=== PATIENT | male | born 1940 | race Caucasian/White ===

== ENCOUNTER 2017-08-06 20:17 | Observation (INO) | payer OTHER ==
[~2017-08-06] VITALS: Ht 165.1 cm; Wt 72.0 kg
[2017-08-06] MEDS ORDERED: ONDANSETRON INJ 2 MG/ML 2 ML VIAL IV STA (20:42)
[2017-08-06] MEDS ORDERED: SODIUM CHLORIDE 0.9% 1000ML 1,000 ML IV STA (20:42)
--- NOTE | 2017-08-06 20:50 | EMERGENCY ROOM VISIT NOTE ---
History Report prepared by Chris: Elissa Lkae Under the Supervision of: Dr. Cruzito Soria M.D. First contact with patient: 20:32 Stated Complaint: Dizzy, N/V History of Present Illness The patient is a 77 year old male who presents to the Emergency Room with complaints of constant dizziness 3.5 hours [employer]CH[employer]ICAL SYSTEM[employer]. He reports that he was feeling fine watching the [employer] while sitting on the sofa. He notes that he fell asleep and his woke him for dinnertime. He notes feeling dizzy as soon as he stood up and immediately fell to the ground. He reports that the dizziness worsens with movement of the body, head, and eyes. He notes general weakness and mild abdominal pain. He has a history of atrial fibrillation, HTN, HLD, depression, and a manic episode in 2000. He denies a history of diabetes. He denies any LOC, injuries, chest pain, shortness of breath, vision changes, fevers, bloody stools, headaches, leg pain or swelling. 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 Review of Systems See HPI for pertinent positives & negatives. A total of 10 systems reviewed and were otherwise negative. Past Medical & Surgical Medical Problems: (1) Dizziness and giddiness Old medical records were reviewed. Nurse's notes were reviewed and I agree with. Family History No pertinent family history reported. Social History Smoking Status: Never Smoker Smokeless Tobacco Use: No Alcohol Use: none Drug Use: none Occupation Status: employed Current/Historical Medications Scheduled Amlodipine Besylate (Amlodipine Besylate), 1 TAB PO DINNER Aspirin (Aspirin Ec), 81 MG PO QAM Carbamazepine (Carbatrol Er), 300 MG PO HS Latanoprost (Xalatan 0.005% Oph Darcie), 1 DROPS OPB HS Lisinopril (Zestril), 20 MG PO DINNER Loratadine (Claritin), 10 MG PO DAILY Metoprolol Tartrate (Lopressor) (Lopressor), 25 MG PO DINNER Rosuvastatin Calcium (Crestor), 40 MG PO DINNER Warfarin Sodium (Coumadin), 2 MG PO MWF Warfarin Sodium (Coumadin), 3.5 MG PO UD Allergies Coded Allergies: No Known Allergies (Unverified , 08/06/17) Physical Exam Vital Signs Date Time Temp Pulse Resp B/P (MAP) Pulse Ox O2 Delivery O2 Flow Rate FiO2 08/07/17 00:29 16 154/102 08/06/17 23:29 60 143/95 99 Room Air 08/06/17 23:09 Room Air 08/06/17 22:09 70 16 151/103 94 Room Air 08/06/17 20:56 84 20 154/102 99 Room Air 08/06/17 20:38 99 Room Air 08/06/17 20:38 36.6 88 20 173/87 99 Room Air 08/06/17 20:35 87 Physical Exam General: Non-ill appearing older male in no acute distress. Complaining of nausea and holding an emesis bag. HEENT: Normal cephalic atraumatic. Pupils are equal round and reactive to light. Extraocular movements are intact. Oropharynx is pink with moist mucous membranes. No swelling of the mouth lips or tongue. Neck: Supple with a midline trachea. No meningeal signs or stiffness, no JVD or bruits. No Stridor. Chest: Clear to auscultation bilaterally. No wheezes or rhonchi. No increased work of breathing. Heart: regular rate and irregularly irregular rhythm. Abdomen: Soft nand mild tenderness to epigastric region, nondistended without rebound guarding or rigidity. Extremities: No cyanosis clubbing or edema. No calf tenderness or assymetry Spine/Back. Non tender to palpation. No CVA tenderness Skin: Good turgor without rashes. Neurologic exam: Cranial nerves two through 12 are intact. Motor and sensation are intact and symmetrical throughout. FNF intact, no tremor. Medical Decision & Procedures ER Provider Diagnostic Interpretation: Radiology results as stated below per my review and radiologist interpretation: SINGLE VIEW CHEST CLINICAL HISTORY: Atypical chest pain. FINDINGS: An AP, portable, upright chest radiograph is obtained. No prior studies are available for comparison at the time of dictation. The examination is degraded by portable technique and patient rotation. The patient is status post midline sternotomy. The heart is enlarged and there is atherosclerotic calcification of the thoracic aorta. The pulmonary vasculature is noncongested. The lungs and pleural spaces are clear. No pneumothorax is seen. The skeletal structures are osteopenic. The bony thorax is grossly intact. IMPRESSION: Cardiomegaly with no acute cardiopulmonary abnormality. Electronically signed by: Martin Rosen M.D. 08/06/2017 9:00 PM Dictated Date/Time: 08/06/2017 8:[address] SCAN OF THE BRAIN WITHOUT IV CONTRAST CLINICAL HISTORY: Vomiting and dizziness. COMPARISON STUDY: No priors. TECHNIQUE: Unenhanced axial CT scan of the brain is performed from the vertex to the skull base. CT DOSE: 1060.45 mGy.cm FINDINGS: Brain parenchyma: There are age-related involutional changes noting mild subcortical and periventricular microangiopathic change. There is no hemorrhage, mass effect, or evidence of acute territorial ischemia by CT criteria. Martin-white matter is preserved. No extra-axial fluid collection is seen. Ventricles, sulci, cisterns: Prominent secondary to involutional change. Intracranial vasculature: There is atherosclerotic calcification of the cavernous carotid arteries. Calvarium: Unremarkable. Sinuses and mastoids: The visualized paranasal sinuses are clear. The mastoid air cells are well pneumatized. Orbits: The bony orbits are grossly intact. IMPRESSION: There is no hemorrhage, mass effect, or evidence of acute territorial ischemia by CT criteria. Electronically signed by: Martin Rosen M.D. 08/06/2017 9:17 PM Dictated Date/Time: 08/06/2017 9:[address] SCAN OF THE ABDOMEN AND PELVIS WITHOUT IV CONTRAST CLINICAL HISTORY: Vomiting. COMPARISON STUDY: No priors. TECHNIQUE: CT scan of the abdomen and pelvis is performed from the lung bases to the proximal femora. Images are reviewed in the axial, sagittal, and coronal planes. IV contrast was not administered for this examination as per the referring clinician. Note that the examination was performed in suboptimal fashion without oral and IV contrast. A dose lowering technique was utilized adhering to the principles of ALARA. CT DOSE: Reported separately under the concurrently performed CT scan of the brain. FINDINGS: Lung bases: The patient is status post midline sternotomy. The heart is enlarged and without pericardial effusion. The coronary arteries are densely calcified. The lung bases are clear. A small to moderate hiatal hernia is identified. Liver: The unenhanced liver is normal in size, contour, and attenuation. There is no intrahepatic biliary ductal dilatation. Gallbladder: There are numerous calcified gallstones. There is no CT evidence of acute cholecystitis. Spleen: Normal in size and attenuation. Pancreas: There is moderate atrophy of the pancreas. Scattered parenchymal calcifications are observed and there is an chronic pancreatitis. Adrenal glands: Unremarkable. Kidneys: The unenhanced kidneys demonstrate cortical atrophy and are without hydronephrosis. There is a 4 mm nonobstructing left or a calculus. No right renal calculi are identified. There is no evidence of contour deforming renal mass lesion. Abdominal vasculature: The abdominal aorta is normal in course and caliber noting advanced atherosclerotic calcification. 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 Bowel: There is mild colonic diverticulosis without CT evidence of acute diverticulitis. No bowel obstruction is seen. The appendix is not identified and reported surgically absent. Peritoneum: There is no intraperitoneal free air or abdominal ascites. There is a small fat-containing umbilical hernia. Lymphadenopathy: None. Pelvic viscera: The prostate gland is enlarged and heterogeneous, measuring 5.1 cm in transverse diameter. There is median lobe hypertrophy. The bladder is distended and contains a small bladder calculi. The wall is mildly thickened and trabeculated suggesting chronic outlet obstruction. There is a tiny fat-containing left inguinal hernia. Skeletal structures: The skeletal structures are osteopenic. There is moderate lumbosacral spondylosis. No lytic or blastic lesions are seen. IMPRESSION: 1. Suboptimal examination without oral and IV contrast. 2. There are no acute infectious or inflammatory findings in the abdomen or pelvis. 3. Nonobstructing left renal calculus. 4. Cholelithiasis without CT evidence of acute cholecystitis. 5. Prostatomegaly with evidence of chronic bladder outlet obstruction. 6. Layering bladder calculi are identified. 7. Cardiomegaly. 8. Hiatal hernia. 9. Mild colonic diverticulosis without CT evidence of acute diverticulitis. 10. Additional findings as above. Electronically signed by: Martin Rosen M.D. 08/06/2017 9:36 PM Dictated Date/Time: 08/06/2017 9:29 PM Laboratory Results 08/06/17 20:05 Red Blood Count 5.42, Mean Corpuscular Volume 91.0, Mean Corpuscular Hemoglobin 31.2, Mean Corpuscular Hemoglobin Concent 34.3, Mean Platelet Volume 10.2, Neutrophils (%) (Auto) 76.8, Lymphocytes (%) (Auto) 15.9, Monocytes (%) (Auto) 4.8, Eosinophils (%) (Auto) 1.7, Basophils (%) (Auto) 0.4, Neutrophils # (Auto) 8.60, Lymphocytes # (Auto) 1.78, Monocytes # (Auto) 0.54, Eosinophils # (Auto) 0.19, Basophils # (Auto) 0.04 08/06/17 20:05 Test 08/06/17 20:05 08/06/17 20:54 White Blood Count 11.20 K/uL (4.8-10.8) Red Blood Count 5.42 M/uL (4.7-6.1) Hemoglobin 16.9 g/dL (14.0-18.0) Hematocrit 49.3 % (42-52) Mean Corpuscular Volume 91.0 fL (80-100) Mean Corpuscular Hemoglobin 31.2 pg (25-34) Mean Corpuscular Hemoglobin Concent 34.3 g/dl (32-36) Platelet Count 241 K/uL (130-400) Mean Platelet Volume 10.2 fL (7.4-10.4) Neutrophils (%) (Auto) 76.8 % Lymphocytes (%) (Auto) 15.9 % Monocytes (%) (Auto) 4.8 % Eosinophils (%) (Auto) 1.7 % Basophils (%) (Auto) 0.4 % Neutrophils # (Auto) 8.60 K/uL (1.4-6.5) Lymphocytes # (Auto) 1.78 K/uL (1.2-3.4) Monocytes # (Auto) 0.54 K/uL (0.11-0.59) Eosinophils # (Auto) 0.19 K/uL (0-0.5) Basophils # (Auto) 0.04 K/uL (0-0.2) RDW Standard Deviation 46.0 fL (36.4-46.3) RDW Coefficient of Variation 13.8 % (11.5-14.5) Immature Granulocyte % (Auto) 0.4 % Immature Granulocyte # (Auto) 0.05 K/uL (0.00-0.02) Prothrombin Time 16.3 SECONDS (9.0-12.0) Prothromb Time International Ratio 1.6 (0.9-1.1) Activated Partial Thromboplast Time 29.4 SECONDS (21.0-31.0) Partial Thromboplastin Ratio 1.1 Anion Gap 9.0 mmol/L (3-11) Est Creatinine Clear Calc Drug Dose 51.6 ml/min Estimated GFR () 78.6 Estimated GFR (Non- 67.8 BUN/Creatinine Ratio 20.0 (10-20) Calcium Level 8.7 mg/dl (8.5-10.1) Total Bilirubin 0.4 mg/dl (0.2-1) Direct Bilirubin 0.1 mg/dl (0-0.2) Aspartate Amino Transf (AST/SGOT) 22 U/L (15-37) Alanine Aminotransferase (ALT/SGPT) 29 U/L (12-78) Alkaline Phosphatase 92 U/L (45-117) Total Creatine Kinase 62 U/L (39-308) Creatine Kinase MB 1.0 ng/ml (0.5-3.6) Creatine Kinase MB Ratio 1.6 (0-3.0) Total Protein 7.7 gm/dl (6.4-8.2) Albumin 4.1 gm/dl (3.4-5.0) Lipase 177 U/L (73-393) Bedside Troponin I < 0.030 ng/ml (0-0.045) Laboratory studies as stated above per my review. Medications Administered Medications (Trade) Dose Ordered Sig/Ruthy Route Start Time Stop Time Status Last Admin Dose Admin Sodium Chloride 1,000 ml @ 999 mls/hr Q1H1M STAT IV 08/06/17 20:42 08/06/17 21:42 DC 08/06/17 20:56 999 MLS/HR Ondansetron HCl (Zofran Inj) 4 mg NOW STAT IV 08/06/17 20:42 08/06/17 20:45 DC 08/06/17 20:56 4 MG Lorazepam (Ativan Inj) 0.5 mg NOW STAT IV 08/06/17 21:34 08/06/17 21:35 DC 08/06/17 22:06 0.5 MG ECG Indication: other (dizziness) Rate (beats per minute): 93 Rhythm: atrial fibrillation Findings: no acute ischemic change, other (No PVCs) Comparison ECG Date: no prior available ED Course 2032: Past medical records reviewed. The patient was evaluated in room C3, and a complete history and physical examination were performed. 2041: Ordered Zofran 4 mg IV, NSS 1,000 ml @ 999 mls/hr IV 2133: Ordered Lorazepam 0.5 mg IV 2133: I reassessed the patient at this time. He is feeling better and resting comfortably 2334: I spoke with michelle Aguirreist. We discussed the patients case. The patient will be evaluated by the [facility] for further management. Medical Decision Differentials include, but are not limited to; arrhythmia, ACS, vertigo, CVA, infection, and electrolyte or metabolic abnormality. This patient comes in as described above. He was placed in room C3. He is here for treatment and evaluation of dizziness. He was worried that he was having a heart attack. He felt very nauseated as. Well he had no chest pain. He appears uncomfortable with movement. He has a normal neurologic exam. His EKG shows chronic A. fib. He is on anticoagulation for this. Multiple blood tests was obtained he was given IV Zofran and IV hydration and he still some nausea and was given Ativan 0.5 mg IV. He was seemed more comfortable with this but still says he feels very nauseated and dizzy with movement. CAT scan of his head is unremarkable and he has no evidence of acute intracranial hemorrhage or process seen. He has no elevation of his cardiac enzymes. He has no acute electrolyte or metabolic abnormalities. He has nothing to suggest trauma or infection. He is not severely anemic. He still does not feel well. I do think that he needs to be admitted/observed for further treatment and evaluation this may be more vertigo. I think he needs further cardiac evaluation/rule out as well and possibly further neurologic evaluation. I have consulted the [facility] to see him in the ER. Medication Reconcilliation Current Medication List: was personally reviewed by me Blood Pressure Screening Patient's blood pressure: Elevated blood pressure Blood pressure disposition: Elevated BP felt to be situational Consults Time Called: 2329 Consulting Physician: Dr. Garcia, hospitalist Returned Call: [phone]: I spoke with wm Aguirre. We discussed the patients case. The patient will be evaluated by the [facility] for further management. Impression Primary Impression: Vertigo Additional Impression: Vomiting Scribe Attestation The scribe's documentation has been prepared under my direction and personally reviewed by me in its entirety. I confirm that the note above accurately reflects all work, treatment, procedures, and medical decision making performed by me. Departure Information Dispostion Being Evaluated By Hospitalist Problem Qualifiers
[2017-08-06 20:53] LABS: BASO % 0.4 %; BASO ABS # 0.04 K/uL (0-0.2); COMPLETE YES; EOS % 1.7 %; HEMATOCRIT 49.3 % (42-52); IG% 0.4 %; LYMPH % 15.9 %; LYMPH ABS # 1.78 K/uL (1.2-3.4); MEAN CORPUSCULAR HEMOGLOBIN 31.2 pg (25-34); MEAN CORPUSCULAR HGB CONC 34.3 g/dl (32-36); MEAN PLATELET VOLUME 10.2 fL (7.4-10.4); MONO % 4.8 %; NEUT % 76.8 %; PLATELET COUNT 241 K/uL (130-400); RED BLOOD COUNT 5.42 M/uL (4.7-6.1)
--- NOTE | 2017-08-06 21:01 | DIAGNOSTIC IMAGING REPORT ---
SINGLE VIEW CHEST CLINICAL HISTORY: Atypical chest pain. FINDINGS: An AP, portable, upright chest radiograph is obtained. No prior studies are available for comparison at the time of dictation. The examination is degraded by portable technique and patient rotation. The patient is status post midline sternotomy. The heart is enlarged and there is atherosclerotic calcification of the thoracic aorta. The pulmonary vasculature is noncongested. The lungs and pleural spaces are clear. No pneumothorax is seen. The skeletal structures are osteopenic. The bony thorax is grossly intact. IMPRESSION: Cardiomegaly with no acute cardiopulmonary abnormality. Electronically signed by: Martin Rosen M.D. 08/06/2017 9:00 PM Dictated Date/Time: 08/06/2017 8:59 PM
[2017-08-06 21:11] LABS: INR 1.6 (0.9-1.1); PARTIAL THROMBOPLASTIN RATIO 1.1; PROTHROMBIN TIME (PATIENT) 16.3 SECONDS (9.0-12.0)
[2017-08-06 21:16] LABS: CALCIUM 8.7 mg/dl (8.5-10.1); CREATININE 1.06 mg/dl (0.60-1.40); POTASSIUM 3.7 mmol/L (3.5-5.1)
--- NOTE | 2017-08-06 21:18 | DIAGNOSTIC IMAGING REPORT ---
CT SCAN OF THE BRAIN WITHOUT IV CONTRAST CLINICAL HISTORY: Vomiting and dizziness. COMPARISON STUDY: No priors. TECHNIQUE: Unenhanced axial CT scan of the brain is performed from the vertex to the skull base. CT DOSE: 1060.45 mGy.cm FINDINGS: Brain parenchyma: There are age-related involutional changes noting mild subcortical and periventricular microangiopathic change. There is no hemorrhage, mass effect, or evidence of acute territorial ischemia by CT criteria. Martin-white matter is preserved. No extra-axial fluid collection is seen. Ventricles, sulci, cisterns: Prominent secondary to involutional change. Intracranial vasculature: There is atherosclerotic calcification of the cavernous carotid arteries. Calvarium: Unremarkable. Sinuses and mastoids: The visualized paranasal sinuses are clear. The mastoid air cells are well pneumatized. Orbits: The bony orbits are grossly intact. IMPRESSION: There is no hemorrhage, mass effect, or evidence of acute territorial ischemia by CT criteria. Electronically signed by: Martin oRsen M.D. 08/06/2017 9:17 PM Dictated Date/Time: 08/06/2017 9:16 PM
[2017-08-06 21:21] LABS: CKMB/CK RATIO 1.6 (0-3.0)
[2017-08-06] MEDS ORDERED: LORAZEPAM 2 MG/ML 1 ML VIAL IV STA (21:34)
--- NOTE | 2017-08-06 21:37 | DIAGNOSTIC IMAGING REPORT ---
CT SCAN OF THE ABDOMEN AND PELVIS WITHOUT IV CONTRAST CLINICAL HISTORY: Vomiting. COMPARISON STUDY: No priors. TECHNIQUE: CT scan of the abdomen and pelvis is performed from the lung bases to the proximal femora. Images are reviewed in the axial, sagittal, and coronal planes. IV contrast was not administered for this examination as per the referring clinician. Note that the examination was performed in suboptimal fashion without oral and IV contrast. A dose lowering technique was utilized adhering to the principles of ALARA. CT DOSE: Reported separately under the concurrently performed CT scan of the brain. FINDINGS: Lung bases: The patient is status post midline sternotomy. The heart is enlarged and without pericardial effusion. The coronary arteries are densely calcified. The lung bases are clear. A small to moderate hiatal hernia is identified. Liver: The unenhanced liver is normal in size, contour, and attenuation. There is no intrahepatic biliary ductal dilatation. Gallbladder: There are numerous calcified gallstones. There is no CT evidence of acute cholecystitis. Spleen: Normal in size and attenuation. Pancreas: There is moderate atrophy of the pancreas. Scattered parenchymal calcifications are observed and there is an chronic pancreatitis. Adrenal glands: Unremarkable. Kidneys: The unenhanced kidneys demonstrate cortical atrophy and are without hydronephrosis. There is a 4 mm nonobstructing left or a calculus. No right renal calculi are identified. There is no evidence of contour deforming renal mass lesion. Abdominal vasculature: The abdominal aorta is normal in course and caliber noting advanced atherosclerotic calcification. 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 Bowel: There is mild colonic diverticulosis without CT evidence of acute diverticulitis. No bowel obstruction is seen. The appendix is not identified and reported surgically absent. Peritoneum: There is no intraperitoneal free air or abdominal ascites. There is a small fat-containing umbilical hernia. Lymphadenopathy: None. Pelvic viscera: The prostate gland is enlarged and heterogeneous, measuring 5.1 cm in transverse diameter. There is median lobe hypertrophy. The bladder is distended and contains a small bladder calculi. The wall is mildly thickened and trabeculated suggesting chronic outlet obstruction. There is a tiny fat-containing left inguinal hernia. Skeletal structures: The skeletal structures are osteopenic. There is moderate lumbosacral spondylosis. No lytic or blastic lesions are seen. IMPRESSION: 1. Suboptimal examination without oral and IV contrast. 2. There are no acute infectious or inflammatory findings in the abdomen or pelvis. 3. Nonobstructing left renal calculus. 4. Cholelithiasis without CT evidence of acute cholecystitis. 5. Prostatomegaly with evidence of chronic bladder outlet obstruction. 6. Layering bladder calculi are identified. 7. Cardiomegaly. 8. Hiatal hernia. 9. Mild colonic diverticulosis without CT evidence of acute diverticulitis. 10. Additional findings as above. Electronically signed by: Martin Rosen M.D. 08/06/2017 9:36 PM Dictated Date/Time: 08/06/2017 9:29 PM
[2017-08-06] MEDS ORDERED: ROSU40TA PO (22:14)
[2017-08-06] MEDS ORDERED: WARF2TAB PO (22:14)
[2017-08-06] MEDS ORDERED: ASPI81TA28 PO (22:14)
[2017-08-06] MEDS ORDERED: METO25TA56 PO (22:14)
[2017-08-06] MEDS ORDERED: NRV/10 PO (22:14)
[2017-08-06] MEDS ORDERED: CLR10 PO (22:14)
[2017-08-06] MEDS ORDERED: CARB1CAP9 PO (22:14)
[2017-08-06] MEDS ORDERED: WARF3TAB PO (22:14)
[2017-08-06] MEDS ORDERED: LATA0.5S OPB (22:14)
[2017-08-06] MEDS ORDERED: LISI-725 PO (22:14)
[2017-08-06 23:09] VITALS: Ht 165.1 cm; Wt 72.0 kg
--- NOTE | 2017-08-06 23:51 | History and Physical ---
History & Physical Date & Time of Service: Aug 06, 2017 at 23:51 Chief Complaint: Dizzy, N/V Primary Care Physician: Luis Espinoza D.O. History of Present Illness Source: patient, family Patient is a 77 yr male with PMH of P.Afib on Coumadin, CAD S/P stents, Bipolar disorder, HTN, HLP and other problems presents with history of severe dizziness which started after he woke up from sleep today. Patient states that he was trying to stand up but went on his knees and couldn't balance himself secondary to dizziness. He states " I can not describe the dizziness" but denies any change with head movement, vertigo. Dizziness slightly improved when he lied on bed with leg elevation. Denies any head trauma, LOC, Incontinence. Reports associated Mild abdominal discomfort, nausea and an episode of vomiting today. Also reports having dizziness previously especially with excess salt intake. Denies any history of chest pain, shortness of breath, vision changes, tinnitus , headache, vertigo, fever, chills, change in hearing, cough, recent URI, weakness. Past Medical/Surgical History PMH of P.Afib on Coumadin, CAD S/P stents, Bipolar disorder, HTN, HLP PSH:CABG, Appendectomy, Vasectomy Family History Father: Multiple Myeloma Mother: Heart disease Social History Smoking Status: Former Smoker Alcohol Use: socially Drug Use: none Allergies Coded Allergies: No Known Allergies (Unverified , 08/06/17) Home Medications Scheduled Amlodipine Besylate (Amlodipine Besylate), 1 TAB PO DINNER Aspirin (Aspirin Ec), 81 MG PO QAM Carbamazepine (Carbatrol Er), 300 MG PO HS Latanoprost (Xalatan 0.005% Oph Darcie), 1 DROPS OPB HS Lisinopril (Zestril), 20 MG PO DINNER Loratadine (Claritin), 10 MG PO DAILY Metoprolol Tartrate (Lopressor) (Lopressor), 25 MG PO DINNER Rosuvastatin Calcium (Crestor), 40 MG PO DINNER Warfarin Sodium (Coumadin), 2 MG PO MWF Warfarin Sodium (Coumadin), 3.5 MG PO UD Review of Systems See HPI for pertinent positives & negatives. A total of 10 systems reviewed and were otherwise negative. Physical Exam Vital Signs Date Time Temp Pulse Resp B/P (MAP) Pulse Ox O2 Delivery O2 Flow Rate FiO2 08/06/17 23:29 60 143/95 99 Room Air 08/06/17 23:09 Room Air 08/06/17 22:09 70 16 151/103 94 Room Air 08/06/17 20:56 84 20 154/102 99 Room Air 08/06/17 20:38 99 Room Air 08/06/17 20:38 36.6 88 20 173/87 99 Room Air 08/06/17 20:35 87 General Appearance: WD/WN, no apparent distress Head: normocephalic, atraumatic Eyes: normal inspection, PERRL, EOMI, sclerae normal ENT: normal ENT inspection, hearing grossly normal Neck: supple, trachea midline Respiratory/Chest: chest non-tender, lungs clear, normal breath sounds, no respiratory distress, no accessory muscle use Cardiovascular: no edema, no murmur, + irregularly irregular Abdomen/GI: normal bowel sounds, non tender, soft Back: normal inspection Extremities/Musculoskelatal: normal inspection, no pedal edema Neurologic/Psych: 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 II-XII nml as tested, no motor/sensory deficits, alert, normal mood/affect, oriented x 3 Skin: normal color, warm/dry Diagnostics Laboratory Results Results Past 24 Hours Test 08/06/17 20:05 08/06/17 20:54 Range/Units White Blood Count 11.20 4.8-10.8 K/uL Red Blood Count 5.42 4.7-6.1 M/uL Hemoglobin 16.9 14.0-18.0 g/dL Hematocrit 49.3 42-52 % Mean Corpuscular Volume 91.0 80-100 fL Mean Corpuscular Hemoglobin 31.2 25-34 pg Mean Corpuscular Hemoglobin Concent 34.3 32-36 g/dl Platelet Count 241 130-400 K/uL Mean Platelet Volume 10.2 7.4-10.4 fL Neutrophils (%) (Auto) 76.8 % Lymphocytes (%) (Auto) 15.9 % Monocytes (%) (Auto) 4.8 % Eosinophils (%) (Auto) 1.7 % Basophils (%) (Auto) 0.4 % Neutrophils # (Auto) 8.60 1.4-6.5 K/uL Lymphocytes # (Auto) 1.78 1.2-3.4 K/uL Monocytes # (Auto) 0.54 0.11-0.59 K/uL Eosinophils # (Auto) 0.19 0-0.5 K/uL Basophils # (Auto) 0.04 0-0.2 K/uL RDW Standard Deviation 46.0 36.4-46.3 fL RDW Coefficient of Variation 13.8 11.5-14.5 % Immature Granulocyte % (Auto) 0.4 % Immature Granulocyte # (Auto) 0.05 0.00-0.02 K/uL Prothrombin Time 16.3 9.0-12.0 SECONDS Prothromb Time International Ratio 1.6 0.9-1.1 Activated Partial Thromboplast Time 29.4 21.0-31.0 SECONDS Partial Thromboplastin Ratio 1.1 Sodium Level 140 136-145 mmol/L Potassium Level 3.7 3.5-5.1 mmol/L Chloride Level 106 98-107 mmol/L Carbon Dioxide Level 24 21-32 mmol/L Anion Gap 9.0 3-11 mmol/L Blood Urea Nitrogen 21 7-18 mg/dl Creatinine 1.06 0.60-1.40 mg/dl Est Creatinine Clear Calc Drug Dose 51.6 ml/min Estimated GFR () 78.6 Estimated GFR (Non- 67.8 BUN/Creatinine Ratio 20.0 10-20 Random Glucose 158 70-99 mg/dl Calcium Level 8.7 8.5-10.1 mg/dl Total Bilirubin 0.4 0.2-1 mg/dl Direct Bilirubin 0.1 0-0.2 mg/dl Aspartate Amino Transf (AST/SGOT) 22 15-37 U/L Alanine Aminotransferase (ALT/SGPT) 29 12-78 U/L Alkaline Phosphatase 92 45-117 U/L Total Creatine Kinase 62 39-308 U/L Creatine Kinase MB 1.0 0.5-3.6 ng/ml Creatine Kinase MB Ratio 1.6 0-3.0 Total Protein 7.7 6.4-8.2 gm/dl Albumin 4.1 3.4-5.0 gm/dl Lipase 177 73-393 U/L Bedside Troponin I < 0.030 0-0.045 ng/ml Diagnostic Radiology CT head: There is no hemorrhage, mass effect, or evidence of acute territorial ischemia by CT criteria. CXR: Cardiomegaly with no acute cardiopulmonary abnormality CT ABD: 1. Suboptimal examination without oral and IV contrast. 2. There are no acute infectious or inflammatory findings in the abdomen or pelvis. 3. Nonobstructing left renal calculus. 4. Cholelithiasis without CT evidence of acute cholecystitis. 5. Prostatomegaly with evidence of chronic bladder outlet obstruction. 6. Layering bladder calculi are identified. 7. Cardiomegaly. 8. Hiatal hernia. 9. Mild colonic diverticulosis without CT evidence of acute diverticulitis. 10. Additional findings as above. EKG EKG: Afib, no acute ischemic change Impression Assessment and Plan Dizziness: DD: Meniere's disease; Labyrinthitis; Meds related CT head: No acute intracranial findings Monitor in Telemetry for arrhythmia Check Orthostatics IV fluids Check ECHO, Carotid Ultrasound Check MRI brain to R/O cerebellar CVA Trend cardiac enzymes ECG shows:afib Fall precautions Meclizine PRN Minimize salt in diet Hold Carbamazepine as can cause dizziness Mild Leukocytosis: No obvious source of infection Hold on Abx for now Check UA Denies fever HTN: Labile Continue home meds monitor P.afib: Rate controlled Previously on sotalol which was discontinued Continue metoprolol INR subtherapeutic Continue Coumadin Monitor INR CAD S/P stents: Denies chest pain Trend troponin continue ASA, statin, BB Bipolar disorder: Hold carbamazepine secondary to dizziness HLP: continue statin DVT Px: On coumadin Disposition: Observe in Tele Advanced Directives Existing Living Will: Yes Existing Power of Inside Sales Administrator: Yes
[2017-08-06] MEDS ORDERED: SODIUM CHLORIDE 0.9% 1000ML 1,000 ML IV SCH (23:56)
[2017-08-07] VITALS (8 sets, daily range): BP systolic 151–185; BP diastolic 78–91; PULSE 68–93; TEMP 36.3–36.7; O2SAT 94–98
[2017-08-07] MEDS ORDERED: ONDANSETRON INJ 2 MG/ML 2 ML VIAL IV PRN
[2017-08-07] MEDS ORDERED: NITROGLYCERIN 0.4 MG SL PER TAB CHARGE SL PRN
[2017-08-07] MEDS ORDERED: ACETAMINOPHEN 325 MG TAB PO PRN
[2017-08-07] MEDS ORDERED: MECLIZINE HCL 12.5 MG TAB PO PRN (00:15)
[2017-08-07] MEDS ORDERED: IV FLUIDS COMPLETED PRN (00:45)
[2017-08-07] MEDS ORDERED: SODIUM CHLORIDE 0.9% 1000ML 500 ML IV ONE (02:45)
[2017-08-07 05:51] LABS: BASO % 0.4 %; BASO ABS # 0.05 K/uL (0-0.2); COMPLETE YES; EOS % 0.6 %; HEMATOCRIT 47.3 % (42-52); IG% 0.3 %; LYMPH % 16.2 %; LYMPH ABS # 1.91 K/uL (1.2-3.4); MEAN CELL VOLUME 91.7 fL (80-100); MEAN CORPUSCULAR HEMOGLOBIN 30.4 pg (25-34); MEAN CORPUSCULAR HGB CONC 33.2 g/dl (32-36); MONO % 7.1 %; NEUT % 75.4 %; PLATELET COUNT 218 K/uL (130-400); RED BLOOD COUNT 5.16 M/uL (4.7-6.1); WHITE BLOOD COUNT 11.76 K/uL (4.8-10.8)
[2017-08-07 06:19] LABS: BLOOD UREA NITROGEN 14 mg/dl (7-18); BUN/CREATININE RATIO 14.9 (10-20); CALCIUM 8.5 mg/dl (8.5-10.1); CARBON DIOXIDE 28 mmol/L (21-32); CHLORIDE 106 mmol/L (98-107); CREATININE 0.97 mg/dl (0.60-1.40); GLUCOSE 98 mg/dl (70-99); MAGNESIUM 2.1 mg/dl (1.8-2.4); POTASSIUM 3.7 mmol/L (3.5-5.1); SODIUM 139 mmol/L (136-145)
--- NOTE | 2017-08-07 06:30 | DIAGNOSTIC IMAGING REPORT ---
CAROTID DOPPLER NECK ART HISTORY: Mental status change Dizziness COMPARISON: None. TECHNIQUE: Real-time, grayscale, and color Doppler sonography of the carotid arteries was performed. Imaging reviewed in the transverse and longitudinal planes. All measurements were calculated based on NASCET criteria. FINDINGS: Antegrade flow is seen in the bilateral vertebral arteries. The brachial pressures are hemodynamically similar. Minimal plaque formation bilaterally The peak systolic velocity within the right ICA is 60. The right systolic ratio is 0.9. The peak systolic velocity within the left ICA is 70. The left systolic ratio is 0.9. IMPRESSION: No hemodynamically significant stenosis seen within the carotid arteries. Minimal plaque formation bilaterally The above report was generated using voice recognition software. It may contain grammatical, syntax or spelling errors. Electronically signed by: Marty Lo M.D. 08/07/2017 6:28 AM Dictated Date/Time: 08/07/2017 6:28 AM
--- NOTE | 2017-08-07 06:51 | DIAGNOSTIC IMAGING REPORT ---
MRI OF THE BRAIN WITHOUT CONTRAST CLINICAL HISTORY: Extreme dizziness, vomiting. COMPARISON STUDY: Noncontrast head CT dated 08/06/2017 FINDINGS: Sagittal T1, axial diffusion, proton density and T2 weighted axial, coronal FLAIR, and axial T1-weighted images were acquired. No intra or extra-axial mass lesions are visualized Axial diffusion-weighted images reveal no evidence of acute or subacute infarction. There is no evidence of ventricular dilatation. Proton density T2-weighted and FLAIR images reveal scattered foci of increased T2 signal within the white matter, likely on a small vessel basis. There are no abnormal flow voids. IMPRESSION: 1. No acute intracranial findings 2. No evidence of intracranial mass, on this noncontrast study. 3. No evidence of acute or subacute infarction 4. Foci of increased T2 signal within the white matter likely on a small vessel basis Electronically signed by: Erick Wayne M.D. 08/07/2017 6:49 AM Dictated Date/Time: 08/07/2017 6:47 AM
[2017-08-07] MEDS ORDERED: ASPIRIN 81 MG ECTAB PO SCH (09:00)
[2017-08-07] MEDS ORDERED: LORATADINE 10 MG TAB PO SCH (09:00)
[2017-08-07] MEDS ORDERED: LISINOPRIL 20 MG TAB PO SCH ×2 (09:00→17:00)
[2017-08-07] MEDS ORDERED: PERFLUTREN LIPID MICROSPHERE (DEFINITY) IV ONE (11:33)
[2017-08-07] MEDS ORDERED: WARFARIN SOD 5 MG TAB PO SCH (16:00)
[2017-08-07] MEDS ORDERED: METOPROLOL TARTRATE 25 MG TAB PO SCH (17:00)
[2017-08-07] MEDS ORDERED: ROSUVASTATIN CALCIUM 20 MG TAB PO SCH (17:00)
[2017-08-07] MEDS ORDERED: AMLODIPINE BESYLATE 5 MG TAB PO SCH (17:00)
[2017-08-07] MEDS ORDERED: ANT25 PO (17:18)
--- NOTE | 2017-08-07 17:20 | Discharge Instructions ---
Discharge Instructions Date of Service Aug 07, 2017. Admission Reason for Admission: Dizziness And Giddiness Discharge Discharge Diagnosis / Problem: Dizziness, Nausea/Vomiting Discharge Goals Goal(s): Diagnostic testing, Therapeutic intervention Activity Recommendations Activity Limitations: resume your previous activity . Instructions / Follow-Up Instructions / Follow-Up Please see Dr. Espinoza on August 13 at 1:05PM for hospital follow up Current Hospital Diet Patient's current hospital diet: AHA Diet (Heart Healthy), Low Sodium Diet (2gm Na) Discharge Diet Recommended Diet: AHA Diet (Heart Healthy), Low Sodium Diet (2gm Na) Pending Studies Studies pending at discharge: yes List of pending studies: Results of Echocardiogram Medical Emergencies . Who to Call and When: Medical Emergencies: If at any time you feel your situation is an emergency, please call 911 immediately. . Non-Emergent Contact Non-Emergency issues call your: Primary Care Provider . . "Provider Documentation" section prepared by Radha Tovar. . VTE Core Measure Inpt VTE Proph given/why not?: Warfarin (Coumadin)
--- NOTE | 2017-08-07 20:25 | ECHOCARDIOGRAM REPORT ---
*NOTICE TO RECEIVING [employer] This information is strictly Confidential and protected under [place] law. [place] law prohibits you from making any further disclosure of this information unless further disclosure is expressly permitted by the written consent of the person to whom it pertains or is authorized by law. A general authorization for the release of medical or other information is not sufficient for this purpose. Hospital accepts no responsibility if the information is made available to any other person, INCLUDING THE PATIENT. Interpretation Summary * Name: JACQUELYN LAY Study Date: 08/07/2017 08:37 AM BP: 151/84 mmHg * Patient Location: [facility]\S\N286\S\2 HR: 68 * : 1940 (M/d/yyyy) Gender: Male Height: 65 in * Age: 77 yrs Ethnicity: CA Weight: 158 lb * Ordering Physician: Ryland Garcia * Referring Physician: Self, Referred * Performed By: Jessy Schaefer RDCS * * Reason For Study: Dizziness * BSA: 1.8 m2 * The study was technically adequate. * There is no comparison study available. * -- Conclusions -- * Ejection Fraction = 60-65%. * No regional wall motion abnormalities noted. * There is mild mitral regurgitation. * There is trace tricuspid regurgitation. * Doppler findings do not suggest pulmonary hypertension. Procedure Details * A complete two-dimensional transthoracic echocardiogram was performed (2D, M-mode, Doppler and color flow Doppler). * The study was technically difficult. * The study was technically difficult, but visualization was adequate with the administration of Definity ultrasound contrast. * A contrast injection of Definity was performed to improve assessment of LV function. * Contrast was injected into an intravenous site in the left arm. * One vial of Definity ultrasound contrast was diluted in normal saline to a total volume of 10 ml. A total of '2' ml of solution was administered during imaging. * Lot # [id number] of Definity utilized for procedure. * Expiration date . * The attending nurse who injected the contrast agent was Skye Roberts RN. Left Ventricle * The left ventricle is normal in size. * There is no thrombus. * There is borderline concentric left ventricular hypertrophy. * Ejection Fraction = 60-65%. * Left ventricular systolic function is normal. * No regional wall motion abnormalities noted. Right Ventricle * The right ventricle is not well visualized. * The right ventricular systolic function is normal as assessed by tricuspid annular plane systolic excursion (TAPSE) (normal >1.5 cm). Atria * The left atrium is mildly dilated. * The right atrium is mildly dilated. * There is no evidence of atrial septal defect, but resolution does not allow assessment for a patent foramen ovale. Mitral Valve * The mitral valve is normal. * There is no mitral valve stenosis. * There is mild mitral regurgitation. Tricuspid Valve * The tricuspid valve is normal. * There is no tricuspid stenosis. * There is trace tricuspid regurgitation. * Doppler findings do not suggest pulmonary hypertension. Aortic Valve * The aortic valve is not well visualized. * Aortic stenosis is absent. * There is no significant aortic regurgitation. Pulmonic Valve * The pulmonary valve is inadequately visualized, but the Doppler data is adequate for interpretation. * There is no pulmonic valvular stenosis. * Trace pulmonic valvular regurgitation. Great Vessels * The aortic root and proximal ascending aorta are normal sized. Pericardium/Pleural * There is no pericardial effusion. Great Vessels * Normal inferior vena cava diameter and respiratory variation suggests normal central venous pressure. MMode 2D Measurements and Calculations IVSd 0.96 cm IVSs 1.4 cm LVIDd 4.6 cm LVIDs 2.9 cm LVPWd 1.1 cm LVPWs 1.7 cm IVS/LVPW 0.86 FS 37.6 % EDV(Teich) 97.6 ml ESV(Teich) 31.5 ml EF(Teich) 67.8 % EDV(cubed) 97.7 ml ESV(cubed) 23.7 ml EF(cubed) 75.7 % % IVS thick 42.5 % % LVPW thick 49.5 % LV mass(C)d 166.5 grams LV mass(C)dI 93.0 grams/m\S\2 LV mass(C)s 151.4 grams LV mass(C)sI 84.6 grams/m\S\2 SV(Teich) 66.1 ml SI(Teich) 37.0 ml/m\S\2 SV(cubed) 74.0 ml SI(cubed) 41.3 ml/m\S\2 Ao root diam 3.1 cm Ao root area 7.5 cm\S\2 ACS 1.8 cm LA dimension 3.9 cm LA/Ao 1.3 LVAd ap4 16.5 cm\S\2 LVLd ap4 5.3 cm EDV(MOD-sp4) 44.6 ml EDV(sp4-el) 43.9 ml LVAs ap4 9.4 cm\S\2 LVLs ap4 4.5 cm ESV(MOD-sp4) 18.2 ml ESV(sp4-el) 17.0 ml EF(MOD-sp4) 59.1 % EF(sp4-el) 61.4 % LVAd ap2 12.9 cm\S\2 LVLd ap2 5.4 cm EDV(MOD-sp2) 25.9 ml EDV(sp2-el) 25.7 ml LVAs ap2 5.7 cm\S\2 LVLs ap2 4.0 cm ESV(MOD-sp2) 7.7 ml ESV(sp2-el) 6.9 ml EF(MOD-sp2) 70.4 % EF(sp2-el) 73.2 % LVLd %diff 3.4 % EDV(MOD-bp) 34.5 ml LVLs %diff -10.92 % ESV(MOD-bp) 12.4 ml EF(MOD-bp) 64.0 % SV(MOD-sp4) 26.4 ml SI(MOD-sp4) 14.8 ml/m\S\2 SV(MOD-sp2) 18.2 ml SI(MOD-sp2) 10.2 ml/m\S\2 SV(MOD-bp) 22.1 ml SI(MOD-bp) 12.3 ml/m\S\2 SV(sp4-el) 26.9 ml SI(sp4-el) 15.0 ml/m\S\2 SV(sp2-el) 18.8 ml SI(sp2-el) 10.5 ml/m\S\2 Doppler Measurements and Calculations MV E max jennifer 96.0 cm/sec MV dec time 0.18 sec Ao V2 max 125.5 cm/sec Ao max PG 6.3 mmHg Ao max PG (full) 3.9 mmHg AI max jennifer 156.9 cm/sec AI max PG 9.8 mmHg AI dec slope 106.5 cm/sec\S\2 AI P1/2t 431.4 msec LV V1 max PG 2.4 mmHg LV V1 max 77.6 cm/sec PA V2 max 103.2 cm/sec PA max PG 4.3 mmHg PI max jennifer 207.5 cm/sec PI max PG 17.2 mmHg PI dec slope 388.7 cm/sec\S\2 PI P1/2t 156.4 msec TR max jennifer 222.8 cm/sec
[2017-08-07] MEDS ORDERED: CARBAMAZEPINE 100 MG TABCR PO SCH (21:00)
[2017-08-07] MEDS ORDERED: LATANOPROST 0.005% OP SOLN 2.5 ML BTL OPB SCH (21:00)
--- NOTE | 2017-08-11 09:33 | Discharge Summary ---
Discharge Summary Date of Service Aug 11, 2017. Discharge Summary Admission Date: Aug 06, 2017 at 23:59 Discharge Date: Aug 07, 2017 Discharge Disposition: Home Principal Diagnosis: Dizziness Procedures: MRI brain, Carotid doppler, TTE Pending Studies/Follow-Up: Check a CBC to follow up leukocytosis, check a UA at follow up, ?possibility that carbamazepine is related to the dizziness Medication Reconciliation New Medications: Meclizine HCl (Meclizine HCl) 25 Mg Tab 12.5 MG PO TID PRN for Dizziness, #30 TAB Continued Medications: Amlodipine Besylate (Amlodipine Besylate) 10 Mg Tab 1 TAB PO DINNER Aspirin (Aspirin Ec) 81 Mg Tab 81 MG PO QAM Carbamazepine (Carbatrol Er) 300 Mg Capcr 300 MG PO HS, CAP Latanoprost (Xalatan 0.005% Oph Darcie) 0.005 % Darcie 1 DROPS OPB HS, ML Lisinopril (Zestril) 20 Mg Tab 20 MG PO DINNER, TAB Loratadine (Claritin) 10 Mg Tab 10 MG PO DAILY, TAB Metoprolol Tartrate (Lopressor) (Lopressor) 25 Mg Tab 25 MG PO DINNER, TAB Rosuvastatin Calcium (Crestor) 40 Mg Tab 40 MG PO DINNER, TAB Warfarin Sodium (Coumadin) 2 Mg Tab 2 MG PO MWF, TAB Warfarin Sodium (Coumadin) 3 Mg Tab 3.5 MG PO UD, TAB Admission Information HPI (per Admitting provider): Patient is a 77 yr male with PMH of P.Afib on Coumadin, CAD S/P stents, Bipolar disorder, HTN, HLP and other problems presents with history of severe dizziness which started after he woke up from sleep today. Patient states that he was trying to stand up but went on his knees and couldn't balance himself secondary to dizziness. He states " I can not describe the dizziness" but denies any change with head movement, vertigo. Dizziness slightly improved when he lied on bed with leg elevation. Denies any head trauma, LOC, Incontinence. Reports associated Mild abdominal discomfort, nausea and an episode of vomiting today. Also reports having dizziness previously especially with excess salt intake. Denies any history of chest pain, shortness of breath, vision changes, tinnitus , headache, vertigo, fever, chills, change in hearing, cough, recent URI, weakness. 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 tested, no motor/sensory deficits, alert , normal mood/affect, oriented x 3 Skin: normal color, warm/dry Hospital Course DIZZINESS: -CT head: No acute intracranial findings -no events in Telemetry -check Orthostatics -continued on IV fluids -TTE: EF 60-65% -Carotid Ultrasound negative for significant stenosis -MRI brain negative for ischemia or masses -negative serial CM -fall precautions -Meclizine PRN -question if this is related to the carbamazepine as it can cause dizziness MILD LEUKOCYTOSIS: -No obvious source of infection -hold off on abx given no symptoms or additional evidence of infection -trending down -UA ordered but not done HTN: -history of labile BPs -continue home meds -monitor ATRIAL FIB: -rate controlled -was previously on sotalol which was discontinued -continue metoprolol -INR subtherapeutic at 1.6 -continue Coumadin -Monitor INR; resume outpatient coag clinic follow up CAD S/P stents: -denies cardiac symptoms or chest pain -serial CM negative -continue ASA, statin, BB BIPOLAR DISORDER: -resumed carbamazepine HYPERLIPIDEMIA: -continue statin PHYSICAL EXAM ON DAY OF DISCHARGE: GENERAL: Patient is in no acute distress. HEENT: No acute trauma, normocephalic atraumatic, mucous membranes moist, no nasal congestion, no scleral icterus. NECK: No stridor, trachea is midline. LUNGS: Clear to auscultation bilaterally, no wheeze, no rhonchi, breath sounds equal. HEART: Without murmurs gallops or rubs, irregularly irregular ABDOMEN: Soft, nontender, bowel sounds positive EXTREMITIES: No cyanosis or edema, full range of motion of all the joints without pain or difficulty, no signs for acute trauma. NEUROLOGIC: Oriented x 3, no acute motor or sensory deficits, no focal weakness. SKIN: No rash, no jaundice, no diaphoresis. Total time spent on discharge = 35 This includes examination of the patient, discharge planning, medication reconciliation, and communication with other providers. Discharge Instructions see patient instructions
== END 2017-08-07 18:46 | disposition home or self-care (01) ==
LOC: EDBD 20:17 → C.EDC 20:19 → C.MED 23:59 → ENRESERV 08-07 00:12
PROVIDERS: ADMIT Internal Medicine; ATTEND Internal Medicine
DX: R42 Dizziness and giddiness (principal); Z79.82 Long term (current) use of aspirin; Z79.01 Long term (current) use of anticoagulants; I48.91 Unspecified atrial fibrillation; I25.10 Atherosclerotic heart disease of native coronary artery without angina pectoris; F31.9 Bipolar disorder, unspecified; I10 Essential (primary) hypertension; Z90.89 Acquired absence of other organs; Z98.52 Vasectomy status

== ENCOUNTER 2020-02-18 15:16 | Inpatient (IN) ==
--- NOTE | 2020-02-18 17:03 | CT Scan Report ---
CT SCAN OF THE ABDOMEN AND PELVIS WITHOUT IV CONTRAST CLINICAL HISTORY: Left flank pain COMPARISON STUDY: Abdominal CT dated 02/14/2020. TECHNIQUE: CT scan of the abdomen and pelvis is performed from the lung bases to the proximal femora. Images are reviewed in the axial, sagittal, and coronal planes. IV contrast was not administered for this examination. A dose lowering technique was utilized adhering to the principles of ALARA. CT DOSE: 275.79 mGy.cm FINDINGS: Lung bases: The patient is status post midline sternotomy. The heart is enlarged and without pericard ial effusion. The coronary arteries are densely calcified. There is a small to moderate hiatal hernia . The lung bases are clear. Liver: The unenhanced liver is normal in size, contour, and attenuation. There is no intrahepatic jose iary ductal dilatation. Gallbladder: There are numerous calcified gallstones with no CT evidence of acute cholecystitis. Spleen: Normal in size and attenuation. Pancreas: The unenhanced pancreas is moderately atrophic and grossly unremarkable. Adrenal glands: Unremarkable. Kidneys: The unenhanced kidneys demonstrate mild cortical atrophy. A 5 mm obstructing calculus is aga in seen in the distal left ureter on image #343. This is slightly more distal than on the 02/14/2020 e xamination, located approximately 1.5 cm above the vesicoureteral junction. This causes moderate left hydroureteronephrosis. There is associated left-sided perinephric and periureteric stranding. No add itional calculi are identified in either kidney. There is no evidence of contour deforming renal mass lesion. Abdominal vasculature: There is advanced atherosclerotic calcification mild ectasia of the abdominal aorta. 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 Bowel: There is mild colonic diverticulosis without CT evidence of acute diverticulitis. No bowel obs truction is seen. Moderate fecal retention is noted in the right colon. The appendix is not identifi ed and reported surgically absent. Peritoneum: There is no intraperitoneal free air or abdominal ascites. There is a small hiatal hernia . Lymphadenopathy: None. Pelvic viscera: The prostate gland is markedly enlarged and heterogeneous. There is median lobe hyper trophy. The bladder wall is thickened and trabeculated indicating chronic outlet obstruction. Tiny bl adder calculi are again noted. These have decreased from previous. Small fat-containing inguinal enrique ias are seen bilaterally. A segment of colon approaches the left inguinal hernia. Skeletal structures: The skeletal structures are osteopenic. Moderate lumbosacral spondylosis is note d. No lytic or blastic lesions are seen. IMPRESSION: 1. Again seen is a 5 mm obstructing calculus in the distal left ureter. This has only slightly distal ly as compared to the 02/14/2020 examination and causes moderate left hydroureteronephrosis. 2. No additional renal calculi are identified in either kidney. 3. Cholelithiasis. 4. Cardiomegaly and hiatal hernia. 5. Prostatomegaly with evidence of chronic bladder outlet obstruction. 6. Additional findings as above. ACT 112: Negative or not required by law. Electronically signed by: Martin Rosen M.D. 02/18/2020 5:02 PM
[2020-02-18] MEDS ORDERED: SODIUM CHLORIDE 0.9% 1000ML 500 ML IV ONE (17:38)
[2020-02-18] MEDS ORDERED: fentaNYL citrate 100 MCG/2 ML VIAL IV ONE (17:38)
--- NOTE | 2020-02-18 17:45 | Emergency Department Note ---
History of Present Illness General Chief complaint: Kidney Stone Stated complaint: KIDNEY STONE, PAIN Time Seen by Provider: 02/18/20 15:51 Source: patient Mode of arrival: ambulatory Limitations: no limitations History of Present Illness Provider complaint: Left-sided flank/abdominal pain and constipation Maximum Pain Intensity: 7 This is a 79-year-old male who presents to the ED with a chief complaint of left sided flank pain. The patient was seen a few days ago and had a CT scan of the abdomen pelvis which revealed a 5 mm distal left ureteral stone. The patient presented this morning with complaints of pain as well as a sensation of constipation. The patient was given medication for constipation including milk of magnesia and mag citrate. He also took some mag citrate at home and this did not help. The patient's pain continues. This morning he was given a liter of IV fluids. He was also given some IV fentanyl. He states that he is taking pain medication at home that does not seem to be helping. The patient has no other complaints at this time. Home Medications Home Medications Medication Instructions Recorded Confirmed Type amlodipine 10 mg PO DAILYBD 02/14/20 02/18/20 History carbamazepine 200 mg PO PM 02/14/20 02/18/20 History latanoprost 1 drp OPB HS 02/14/20 02/18/20 History lisinopril 20 mg PO DAILYBD 02/14/20 02/18/20 History metoprolol tartrate 25 mg PO DAILYBD 02/14/20 02/18/20 History rosuvastatin 40 mg PO DAILYBD 02/14/20 02/18/20 History tamsulosin [Flomax] 0.4 mg PO HS #7 cap 02/14/20 02/18/20 Rx warfarin 2.5 mg PO 4XWK 02/14/20 02/18/20 History warfarin 3.5 mg PO 3XWK 02/14/20 02/18/20 History aspirin 81 mg PO QAM 02/18/20 02/18/20 History fluorouracil 1 applic TOPICAL BID PRN 02/18/20 02/18/20 History meclizine 12.5 mg PO DAILY PRN 02/18/20 02/18/20 History mupirocin 1 applic TOPICAL BID 02/18/20 02/18/20 History tramadol 50 mg PO Q8H PRN #10 tab 02/18/20 02/18/20 Rx Allergies Allergy/AdvReac Type Severity Reaction Status Date / Time No Known Allergies Allergy Unverified 02/18/20 01:29 Past Med/Surg History Medical History CAD (coronary artery disease) History of [place] (myocardial infarction) Paroxysmal A-fib Surgical History History of coronary artery bypass graft S/P appendectomy Family History Mother Myocardial infarction Father Cancer Multiple Myeloma Social History Preferred Language: Serbian Communication Ability: Effective Digital Account Supervisor Required: No Beliefs That Will Affect Care: None and Mormon Current Living Situation: Spouse Other Information That Helps Us Care for You: No Feels Safe at Home: Yes Safety Concerns: Feels Safe At This Time Smoking Status: Former smoker Hx Alcohol Use: Yes Alcohol type: wine and hard liquor Hx Substance Use: No Review of Systems A total of 10 systems reviewed and were otherwise negative Physical Exam Vital Signs Vital Signs - 24 hr 02/18/20 15:20 02/18/20 16:39 02/18/20 18:10 Temperature 36.4 C L Temperature Source Oral Pulse Rate 99 H Pulse Rate [Right Finger] 74 87 Respiratory Rate 18 20 20 Blood Pressure 188/96 H Blood Pressure [Right Arm] 176/101 H 178/92 H Blood Pressure Mean 126 Blood Pressure Mean [Right Arm] 126 120 Pulse Oximetry 98 97 96 Oxygen Delivery Method Room Air Room Air Sepsis Recent Fever Within 48 Hours No Sepsis New/Unexplained Change in Mental Status No Sepsis Action Taken by Nursing No Action Required CONSTITUTIONAL/VITAL SIGNS: Reviewed / noted above. GENERAL: Non-toxic in appearance. INTEGUMENTARY: Warm, dry, and [place]. HEAD: Normocephalic. EYES: without scleral icterus or trauma. ENT/OROPHARYNX: clear and moist. LYMPHADENOPATHY/NECK: Is supple without lymphadenopathy or meningismus. RESPIRATORY: Lungs clear and equal. CARDIOVASCULAR: Regular rate and rhythm. GI/ABDOMEN: Soft and nontender. No organomegaly or pulsatile mass. No rebound or guarding. Normal bowel sounds. EXTREMITIES: Warm and well perfused. BACK: Left-sided CVA tenderness. NEUROLOGICAL: Intact without focal deficits. PSYCHIATRIC: normal affect. MUSCULOSKELETAL: Normally developed with good muscle tone. TRIAGE NURSING DOCUMENTATION REVIEWED. Course Administered Medications Carbamazepine (Tegretol Xr) 200 mg PO QDD EMELIA Stop: 03/19/20 20:59 Last Admin: 02/18/20 21:26 Dose: 200 mg Documented by: [id number] Sodium Chloride (Nss 1000ml) 1,000 mls @ 100 mls/hr IV .Q10H EMELIA Stop: 03/19/20 19:49 Last Admin: 02/18/20 20:07 Dose: 100 mls/hr Documented by: [id number] Latanoprost (Xalatan Oph) 1 drops OPB [facility] Stop: 03/19/20 20:59 Last Admin: 02/18/20 21:22 Dose: 1 drops Documented by: [id number] Mupirocin (Bactroban 2%) 1 appln EXT BID EMELIA Stop: 03/19/20 20:59 Last Admin: 02/18/20 21:26 Dose: Not Given Documented by: [id number] Tamsulosin HCl (Flomax) 0.4 mg PO [facility] Stop: 03/19/20 20:59 Last Admin: 02/18/20 21:21 Dose: 0.4 mg Documented by: [id number] Discontinued Medications Amlodipine Besylate (Norvasc) 10 mg PO NOW ONE Stop: 02/18/20 20:23 Last Admin: 02/18/20 21:22 Dose: 10 mg Documented by: [id number] Fentanyl Citrate (Fentanyl Citrate) 25 mcg IV NOW ONE Stop: 02/18/20 17:39 Last Admin: 02/18/20 18:09 Dose: 25 mcg Documented by: [id number] Heparin Sodium/Dextrose () 1 ea IV NOW STA; Protocol Stop: 02/18/20 18:52 Last Admin: 02/18/20 19:28 Dose: Not Given Documented by: [id number] Hydromorphone HCl (Dilaudid) Confirm Administered Dose 0.5 mg .ROUTE .STK-MED ONE Stop: 02/18/20 23:30 Last Admin: 02/18/20 23:34 Dose: 0.5 mg Documented by: [id number] Sodium Chloride (Nss 1000ml) 500 mls @ 999 mls/hr IV .Q31M ONE Stop: 02/18/20 18:08 Last Infusion: 02/18/20 18:40 Dose: 0 mls/hr Documented by: [id number] Admin: 02/18/20 18:09 Dose: 999 mls/hr Documented by: [id number] Metoprolol Tartrate (Lopressor) 25 mg PO NOW STA Stop: 02/18/20 20:23 Last Admin: 02/18/20 21:22 Dose: 25 mg Documented by: [id number] Morphine Sulfate (Morphine Sulfate) 3 mg IV Q4 PRN PRN Reason: Severe Pain Stop: 03/03/20 19:49 Last Admin: 02/18/20 21:40 Dose: 3 mg Documented by: [id number] Medical Decision Making Differential Diagnosis Differential considered: pancreatitis, hepatitis, acute cholecystitis, AAA, UTI, pyelonephritis, kidney stones, appendicitis, diverticulitis, shingles, bowel obstruction, mesenteric ischemia, intussusception,hernia, testicular torsion, ovarian torsion, ruptured ovarian cyst,ectopic , . Medical Records Attestation: I reviewed the patient's medical records. Home Medications Current Medication List: was personally reviewed by me Laboratory Data Attestation: I reviewed the patient's lab results. The patient had lab test earlier today. His INR is 3.2. His CBC was unremarkable. The BUN is 32 and the creatinine is 1.99. This is up from his previous visit. Imaging Data Radiologist's Impression: CT scan of the abdomen pelvis:IMPRESSION: 1. Again seen is a 5 mm obstructing calculus in the distal left ureter. This has only slightly distally as compared to the 02/14/2020 examination and causes moderate left hydroureteronephrosis. 2. No additional renal calculi are identified in either kidney. 3. Cholelithiasis. 4. Cardiomegaly and hiatal hernia. 5. Prostatomegaly with evidence of chronic bladder outlet obstruction. 6. Additional findings as above. Blood Pressure Blood Pressure Findings: Elevated blood pressure Blood Pressure Disposition: elevated BP felt to be situational MDM Narrative This is a 79-year-old male who presents to the ED with a chief complaint of left sided flank pain. The patient was seen a few days ago and had a CT scan of the abdomen pelvis which revealed a 5 mm distal left ureteral stone. The patient presented this morning with complaints of pain as well as a sensation of constipation. The patient was given medication for constipation including milk of magnesia and mag citrate. He also took some mag citrate at home and this did not help. The patient's pain continues. This morning he was given a liter of IV fluids. He was also given some IV fentanyl. He states that he is taking pain medication at home that does not seem to be helping. The patient has no other complaints at this time. The patient had blood work earlier today. That has been reviewed. His kidney function tests are little bit worse than he was a few days ago. His INR 3.2. CBC is unremarkable. CT scan today reveals a 5 mm calculus in the distal left ureter causing moderate hydronephrosis. He has moderate fecal retention in the right colon. The CT scan is similar to his previous CT scan with regards to the location of the distal left ureter. Impression & Plan Renal colic on left side, Constipation Discharge Plan Visit Data *Final* Discharge Date/Time: 02/18/20 19:27 Chief Complaint: Kidney Stone Stated Complaint: KIDNEY STONE, PAIN ED Provider: Luis Enrique Daigle Discharge Problem: Renal colic on left side, Constipation Patient Disposition: Admitted As Inpatient Discharge Instructions Interventions: ED Discharge Assessment Last Done: 02/18/20 19:27
--- NOTE | 2020-02-18 18:48 | History & Physical Report ---
Date of Service February 18, 2020 Assessment & Plan (1) Hydronephrosis with obstructing calculus: (2) Calculus of distal left ureter: (3) Flank Pain: (4) XIOMY (acute kidney injury): (5) Abdominal pain: Patient presenting with left sided flank pain and LLQ pain. Noted to have 5 mm obstructing stone of the left distal ureter that has been present for at least 4 days. He now also has left sided ureterohydronephrosis and XIOMY. Creatinine bumped from 0.9 at baseline to 1.9 today. Likely from obstructive uropathy. Placed on Tamsulosin 4 days ago, will continue. Patient's pain is currently improved. Continue pain control regimen. PRN Tylenol mild pain. PRN Morphine severe pain. Repeat CBC, BMP in AM Continue IV hydration. Consult Urology- Dr. Gaona aware NPO after midnight. (6) Constipation: Patient with constipation x 1 week. Typically moves his bowels every day. Given Mag Citrate this AM with no relief. Will give tap water enema x 1 Start Sennekot-S daily starting tomorrow (7) HTN (hypertension): BP currently elevated. Likely secondary to pain. Continue home medications including amlodipine and metoprolol. Hydralazine 10 mg PRN systolic BP >160 Hold lisinopril due to XIOMY Continue to monitor BP Check EKG (8) History of [place] (myocardial infarction): (9) CAD (coronary artery disease): (10) Paroxysmal A-fib: HR currently controlled. No chest pain. Monitor on Med/Surg with tele. Continue metoprolol. Hold ASA and Coumadin tomorrow morning due to possibility of needing stone intervention. (11) DVT prophylaxis: INR 3.2 currently. Will recheck in AM. SCDs for now. History of Present Illness Chief Complaint: Kidney Stone Primary Care Provider: Luis Espinoza DO Patient is a 79 yo male with history of paroxysmal Afib, CAD, and bipolar dis order who presented to the ED with pain and obstructing renal stone. The patient started to have pain in the left flank/left lower abdomen last Friday. The patient presented to the ED 4 days ago with pain and was noted to have a 5 mm renal stone in the distal left ureter. He was sent home with Flomax and analgesics. He presented again this morning with multiple days of constipation and continued pain. He was given a bowel regimen and sent home this morning. He was however told to come back if his pain did not improve, which it didn't. He returned to the ED this evening with continued severe pain in both the LLQ and lower abdomen. He feels bloated. He still has not moved his bowels. He usually has a BM every day. He is urinating well. No dark or bloody urine. No dysuria. He is trying to drink lots of fluid at home. He has no history of renal stones. His pain when he got here was 7-8/10. Now it is about 3/10 after Fentanyl in the ED. Repeat CT of the abdomen/pelvis showed left distal ureteral stone without much change in placement from prior scan. He was noted to now have some left sided hydronephrosis though as well and XIOMY with creatinine bumped from 0.9 baseline to 1.9 this morning. Labs this morning otherwise showed INR of 3.2 & WBC count of 11. Allergies Allergy/AdvReac Type Severity Reaction Status Date / Time No Known Allergies Allergy Unverified 02/18/20 01:29 Home Medications Home Medications Medication Instructions Recorded Confirmed Type amlodipine 10 mg PO DAILYBD 02/14/20 02/18/20 History carbamazepine 200 mg PO PM 02/14/20 02/18/20 History latanoprost 1 drp OPB HS 02/14/20 02/18/20 History lisinopril 20 mg PO DAILYBD 02/14/20 02/18/20 History metoprolol tartrate 25 mg PO DAILYBD 02/14/20 02/18/20 History rosuvastatin 40 mg PO DAILYBD 02/14/20 02/18/20 History tamsulosin [Flomax] 0.4 mg PO HS #7 cap 02/14/20 02/18/20 Rx warfarin 2.5 mg PO 4XWK 02/14/20 02/18/20 History warfarin 3.5 mg PO 3XWK 02/14/20 02/18/20 History aspirin 81 mg PO QAM 02/18/20 02/18/20 History fluorouracil 1 applic TOPICAL BID PRN 02/18/20 02/18/20 History meclizine 12.5 mg PO DAILY PRN 02/18/20 02/18/20 History mupirocin 1 applic TOPICAL BID 02/18/20 02/18/20 History tramadol 50 mg PO Q8H PRN #10 tab 02/18/20 02/18/20 Rx Past Med/Surg History Medical History (Updated 02/18/20 @ 19:49 by Cathy Orodnez PA-C) CAD (coronary artery disease) History of [place] (myocardial infarction) Paroxysmal A-fib Surgical History (Updated 02/18/20 @ 19:40 by Cathy Ordonez PA-C) History of coronary artery bypass graft S/P appendectomy Family History (Updated 02/18/20 @ 19:41 by Cathy Ordonez PA-C) Mother Myocardial infarction Father Cancer Multiple Myeloma Social History Preferred Language: Cymraes Communication Ability: Effective National Opelint Analyst Required: No Beliefs That Will Affect Care: None and Shinto Current Living Situation: Spouse Other Information That Helps Us Care for You: No Feels Safe at Home: Yes Safety Concerns: Feels Safe At This Time Smoking Status: Former smoker Hx Alcohol Use: Yes Alcohol type: wine and hard liquor Hx Substance Use: No Review of Systems Review of Systems: All systems reviewed & are unremarkable except as noted in HPI & below Physical Exam Constitutional: WD/WN, vitals as above Eyes: PERRL, conjunctivae normal, anicteric sclerae ENMT: external ear and nose normal, oropharynx normal Neck: trachea midline, no thyromegaly Respiratory: normal respiratory effort, lungs clear to auscultation Cardiovascular: Rate/Rhythm: regular rate; + abnormal rhythm Heart Sounds: no murmur Gastrointestinal (Abdomen): Inspection/Auscultation: normal bowel sounds Percussion/Palpation: + abdomen tender (LLQ and suprapubic) and abdomen soft; no guarding and abdomen not rigid Skin: no rashes, warm and dry Neurologic: PERRL, EOMI, accommodation nl, no face palsy, no dysarthria Psychiatric: A+Ox3, euthymic affect Results & Data Results & Data ([facility]) Vital Signs (Past 12 Hours) Vital Signs Temp Pulse Pulse Resp BP BP Pulse Ox 02/18/20 18:10 87 20 178/92 H 96 02/18/20 16:39 74 20 176/101 H 97 02/18/20 15:20 36.4 C L 99 H 18 188/96 [address] Abdomen/Pelvis: IMPRESSION: 1. Again seen is a 5 mm obstructing calculus in the distal left ureter. This has only slightly distally as compared to the 02/14/2020 examination and causes moderate left hydroureteronephrosis. 2. No additional renal calculi are identified in either kidney. 3. Cholelithiasis. 4. Cardiomegaly and hiatal hernia. 5. Prostatomegaly with evidence of chronic bladder outlet obstruction. 6. Additional findings as above. Code Status & VTE Plan VTE Prophylaxis Plan VTE Prophylaxis will be ordered: Yes Supervising Physician Co-Signing Physician Notes Attending Addendum: care coordinated with DEJAH Ordonez please refer to her notes for full details, I agree with her notes patient seen and examined, records reviewed by myself as well on exam, patient seen resting, sitting up in bed, comfortable, not in distress States he feels improved compared to when he was admitted in the ER Left flank pain has resolved after fentanyl No nausea or vomiting, no active shortness of breath, chest pain, palpitations, dizziness No hematuria no other symptoms VS noted and reviewed oriented x 3, not in distress, speaks in sentences with no effort nor accessory muscle use normal rate, irregularly irregular rhythm, no murmurs clear breath sounds bilaterally non distended, soft, nontender no bipedal edema, erythema, warmth no neuro deficits WBC 11.3 Hg 13.8 Crea 1.99 ASSESSMENT AND PLAN Left ureteral stone With hydro-ureteric nephrosis, acute kidney injury N.p.o., IV fluids, tamsulosin, discussed with Dr. Alegre PRN morphine for pain Monitor creatinine Hypertension Resume usual metoprolol, amlodipine, hold lisinopril PRN hydralazine ordered Constipation Tapwater enema Daily Senokot-S Atrial fibrillation Hold Coumadin Continue metoprolol History of CAD Hold usual aspirin, continue metoprolol other diagnoses and plan of care as per DEJAH Ordonez notes Dav Jimenes MD (1) Abdominal pain Abdominal location: generalized Qualified Code(s): R10.84 - Generalized ab dominal pain (2) Constipation Constipation type: unspecified constipation type Qualified Code(s): K59.00 - Constipation, unspecified
[2020-02-18] MEDS ORDERED: HEPARIN SODIUM/DEXTROSE 25,000 UNITS/500 ML BAG IV SCH (19:00)
[2020-02-18] MEDS ORDERED: MoRPHine SULFATE 4 MG/ML 1 ML CARP\\VIAL IV PRN (19:50)
[2020-02-18] MEDS: SODIUM CHLORIDE 0.9% 1000ML 1,000 ML IV SCH (20:07)
[2020-02-18] MEDS ORDERED: METOPROLOL TARTRATE 25 MG TAB PO STA (20:22)
[2020-02-18] MEDS ORDERED: AMLODIPINE BESYLATE 5 MG TAB PO ONE (20:22)
[2020-02-18] MEDS: TAMSULOSIN HCL 0.4 MG CAP PO SCH (21:21)
[2020-02-18] MEDS: LATANOPROST 0.005% OP SOLN 2.5 ML BTL OPB SCH (21:22)
[2020-02-18] MEDS: CARBAMAZEPINE 200 MG TABCR PO SCH (21:26)
[2020-02-18] MEDS: MUPIROCIN 2% OINT 22 GM TUBE EXT SCH (21:26)
[2020-02-18] MEDS ORDERED: HYDROmorphone INJ 0.5 MG/0.5 ML SYR IV PRN (23:14)
[2020-02-18] MEDS ORDERED: HYDROmorphone INJ 0.5 MG/0.5 ML SYR ONE (23:29)
[2020-02-19] MEDS: HYDROmorphone INJ 1 MG/ML SYRINGE IV PRN ×4 (03:23→19:31)
[2020-02-19] MEDS: SODIUM CHLORIDE 0.9% 1000ML 1,000 ML IV SCH ×2 (05:20→14:32)
[2020-02-19 07:03] LABS: Hematocrit (blood only) 48.8 % (42-52); Hemoglobin 15.9 g/dL (14.0-18.0); Mean Corpuscular Hemoglobin 30.3 pg (25-34); Mean Corpuscular Hgb Conc 32.6 g/dL (32-36); Mean Corpuscular Volume 93.1 fL (80-100); Mean Platelet Volume 10.2 fL (7.4-10.4); Platelet Count 278 K/uL (130-400); RDW Coefficient of Variation 13.9 % (11.5-14.5); RDW Standard Deviation 47.2 fL (36.4-46.3); Red Blood Count 5.24 M/uL (4.7-6.1); White Blood Count 10.63 K/uL (4.8-10.8)
[2020-02-19 07:24] LABS: INR 4.1 (0.9-1.1); Prothrombin Time 40.1 Seconds (9.0-12.0)
[2020-02-19 07:35] LABS: BUN Creatinine Ratio 16.5 (10-20); Calcium 8.6 mg/dl (8.5-10.1); Creatinine Clr Calc Pharmacy 34.6 ml/min; Est GFR (African American) 52.2; Potassium 4.7 mmol/L (3.5-5.1)
[2020-02-19] MEDS: DOCUSATE SODIUM/SENNA 50/8.6MG TAB PO SCH (08:07)
[2020-02-19] MEDS: MUPIROCIN 2% OINT 22 GM TUBE EXT SCH ×2 (08:07→21:36)
--- NOTE | 2020-02-19 11:22 | Electrocardiogram Report ---
Test Reason : Blood Pressure : / mmHG Vent. Rate : 082 BPM Atrial Rate : 046 BPM P-R Int : 000 ms QRS Dur : 086 ms QT Int : 364 ms P-R-T Axes : 000 087 049 degrees QTc Int : 425 ms Atrial fibrillation Abnormal ECG When compared with ECG of 06-AUG-2017 20:23, No significant change was found Confirmed by Anival Weems ([id number]) on 02/19/2020 11:22:22 AM Referred By: REFERRED SELF Confirmed By:Anival Weems
[2020-02-19] MEDS ORDERED: bisacodyL 10 MG SUPP PR STA (12:04)
--- NOTE | 2020-02-19 12:04 | Urology Consultation ---
Date of Consultation February 19, 2020 Assessment & Plan (1) Hydronephrosis with obstructing calculus: Patient doing well. Pain controlled and less severe. Thinks may have passed as it has drastically gotten better. No bleeding. No severe issues. No fevers. Main complaint at this point is constipation. Likely multifactorial. will recommend suppository. Plan for supportive care with hydration and oral intake and pain/symptom control. Can follow up in 1-2 months with Urology. May benefit from repeat imaging at some point if not definitively passed. (2) Constipation: History of Present Illness Attending Physician: Dav Jimenes MD History of Present Illness New consultation for patient with stone, discomfort, obstruction, and ill feelings. No history of stones. Was seen in ER a week ago and then represented due to continued pain. Has been severe. Stone has moved distally down ureter on imaging. Left sided ureteral stone. Patient developed sudden onset of pain into flank going down and radiating into groin and back in waves comes and goes. Can be severe at times. Discussed and reviewed patient's family history for any history of stone dis ease. Also, discussed patient's medical surgery history especially related to any history of urinary issues or stone disease. Patient was admitted and is undergoing observation. Allergies Allergy/AdvReac Type Severity Reaction Status Date / Time No Known Allergies Allergy Unverified 02/18/20 01:29 Home Medications Home Medications Medication Instructions Recorded Confirmed Type amlodipine 10 mg PO DAILYBD 02/14/20 02/18/20 History carbamazepine 200 mg PO PM 02/14/20 02/18/20 History latanoprost 1 drp OPB HS 02/14/20 02/18/20 History lisinopril 20 mg PO DAILYBD 02/14/20 02/18/20 History metoprolol tartrate 25 mg PO DAILYBD 02/14/20 02/18/20 History rosuvastatin 40 mg PO DAILYBD 02/14/20 02/18/20 History tamsulosin [Flomax] 0.4 mg PO HS #7 cap 02/14/20 02/18/20 Rx warfarin 2.5 mg PO 4XWK 02/14/20 02/18/20 History warfarin 3.5 mg PO 3XWK 02/14/20 02/18/20 History aspirin 81 mg PO QAM 02/18/20 02/18/20 History fluorouracil 1 applic TOPICAL BID PRN 02/18/20 02/18/20 History meclizine 12.5 mg PO DAILY PRN 02/18/20 02/18/20 History mupirocin 1 applic TOPICAL BID 02/18/20 02/18/20 History tramadol 50 mg PO Q8H PRN #10 tab 02/18/20 02/18/20 Rx Patient History Medical History CAD (coronary artery disease) History of [place] (myocardial infarction) Paroxysmal A-fib Surgical History History of coronary artery bypass graft S/P appendectomy Family History Mother Myocardial infarction Father Cancer Multiple Myeloma Social History Preferred Language: Serbian Communication Ability: Effective Clamp Operator Required: No Beliefs That Will Affect Care: None and Nondenominational Current Living Situation: Spouse Other Information That Helps Us Care for You: No Feels Safe at Home: Yes Safety Concerns: Feels Safe At This Time Smoking Status: Former smoker Hx Alcohol Use: Yes Alcohol type: wine and hard liquor Hx Substance Use: No Review of Systems Review of Systems: All systems reviewed & are unremarkable except as noted in HPI & below Physical Exam Physical Exam: General: Alert and oriented x 3 in no acute distress. Patient is well nourished and well kept. HEENT: Normocephalic Atraumatic. Inspection normal. Cranial Nerves 2-12 Grossly intact. Nares are clear. Neck is supple. Normal inspection of face. No rmal inspection of neck. Neurologic: No deficits on inspection. Baseline for motor function and sensory. Psychologic: Normal affect. Respiratory: Nonlabored. No use of accessory muscles. No tachypnea or dyspnea. Cardiovascular: No tachycardia Skin: [place] and Dry. No rashes or visible lesions. Extremities: Moving without issues. No motor deficits on inspection Lymphatics: No edema Abdomen: Soft Non-distended. No acites. No rebound or guarding. Results & Data Vital Signs (Past 12 Hours) Vital Signs Temp Pulse Pulse Resp BP Pulse Ox 02/19/20 11:00 36.7 C 83 18 134/72 95 02/19/20 07:50 73 02/19/20 07:00 36.6 C 78 18 118/68 95 02/19/20 03:58 36.8 C 85 16 120/63 97 02/19/20 01:16 82 PG Care Time/CCT Total # of Minutes Spent Total Time Spent with Patient: Total time spent is greater than 50% in coordination of care (as documented) at patient's floor/unit and/or counseling patient: Coding Level of Care Code 44118 Inpt Consult Level 5 Diagnoses Hydronephrosis with obstructing calculus N13.2 Constipation K59.00 Constipation type: unspecified constipation type (1) Constipation Constipation type: unspecified constipation type Qualified Code(s): K59.00 - Constipation, unspecified
--- NOTE | 2020-02-19 13:43 | XRay Report ---
XR KUB/Abdomen 1 view CLINICAL HISTORY: r/o obstruction COMPARISON STUDY: No previous studies for comparison. FINDINGS: The soft tissues, psoas shadows, renal outlines and intestinal gas pattern appear normal. T here is no evidence for bowel obstruction. No abnormal abdominal calcifications are seen. IMPRESSION: Normal study. ACT 112: Negative or not required by law. The above report was generated using voice recognition software. It may contain grammatical, syntax or spelling errors. Electronically signed by: Marty Lo M.D. 02/19/2020 1:42 PM
[2020-02-19] MEDS ORDERED: METOPROLOL TARTRATE 25 MG TAB PO SCH (15:30)
[2020-02-19] MEDS: AMLODIPINE BESYLATE 5 MG TAB PO SCH (15:57)
[2020-02-19] MEDS: CARBAMAZEPINE 200 MG TABCR PO SCH (16:10)
[2020-02-19] MEDS ORDERED: MAGNESIUM HYDROXIDE SUSP 30 ML UDC PO PRN (17:56)
--- NOTE | 2020-02-19 18:04 | Hospitalist Progress Note ---
Date of Service February 19, 2020 Assessment & Plan (1) Hydronephrosis with obstructing calculus: (2) Calculus of distal left ureter: (3) Flank Pain: (4) XIOMY (acute kidney injury): (5) Abdominal pain: Per DEJAH Ordonez's notes: Patient presenting with left sided flank pain and LLQ pain. Noted to have 5 mm obstructing stone of the left distal ureter that has been present for at least 4 days. He now also has left sided ureterohydronephrosis and XIOMY. Creatinine bumped from 0.9 at baseline to 1.9 today. Likely from obstructive uropathy. Pain improving today Creatinine also improving, improved from 1.9 down to 1.4 Continue IV fluids, pain control, Flomax Monitor closely Present on Admission?: Yes (6) Constipation: Positive BM around 6 PM Continue Senokot-S (7) HTN (hypertension): Improving Continue home medications including amlodipine and metoprolol. Hydralazine 10 mg PRN systolic BP >160 Hold lisinopril due to XIOMY Continue to monitor BP (8) History of [place] (myocardial infarction): (9) CAD (coronary artery disease): (10) Paroxysmal A-fib: HR currently controlled. No chest pain. Monitor on Med/Surg with tele. Continue metoprolol. INR 4, repeat at 6 PM pending, hold Coumadin Hold ASA due to possibility of needing stone intervention. (11) DVT prophylaxis: INR 4.1 SCDs for now. Disposition Anticipate discharge to home medically stable Admission and Anticipated Discharge Date Admission Date: February 18, 2020 Subjective Follow-up for left ureteral stone, with acute renal failure Seen resting in bed, comfortable, not in distress States he feels improved today compared to yesterday Left-sided flank/back pain improving Patient had 1 episode of pink-colored urine this morning No dysuria No chest pain, shortness of breath, palpitations, dizziness No BM yet No other symptoms Review of Systems Review of Systems: All systems reviewed & are unremarkable except as noted in HPI & below Physical Exam Physical Exam: General- oriented x 3, not in distress, speaks in sentences with no effort or accessory muscle use Eyes- anicteric Neck- no JVD Lungs- clear breath sounds bilaterally, no rales/wheezes Heart- normal rate, regular rhythm; no murmurs Abdomen- normal bowel sounds, nondistended, soft, nontender No CVA tenderness Extremities- no pretibial edema, no calf tenderness Neuro- alert, oriented x 3; no gross focal neurologic deficits Skin- warm & dry Results & Data Results & Data ([facility]) Vital Signs (Past 12 Hours) Vital Signs Temp Pulse Pulse Resp BP Pulse Ox 02/19/20 15:55 111 H 163/84 H 02/19/20 15:09 88 02/19/20 11:00 36.7 C 83 18 134/72 95 02/19/20 07:50 73 02/19/20 07:00 36.6 C 78 18 118/68 95 (1) Abdominal pain Abdominal location: generalized Qualified Code(s): R10.84 - Generalized abdominal pain (2) Constipation Constipation type: unspecified constipation type Qualified Code(s): K59.00 - Constipation, unspecified
[2020-02-19 19:11] LABS: INR 5.5 (0.9-1.1); Prothrombin Time 52.6 Seconds (9.0-12.0)
[2020-02-19] MEDS: TAMSULOSIN HCL 0.4 MG CAP PO SCH (21:33)
[2020-02-19] MEDS: LATANOPROST 0.005% OP SOLN 2.5 ML BTL OPB SCH (21:34)
[2020-02-19] MEDS: OXYCODONE HCL IR 5 MG TAB (IMMEDIATE RELEASE) PO PRN (22:31)
[2020-02-19] MEDS: HydrALAZINE HCL 20 MG/ML VIAL IV PRN (23:59)
[2020-02-20] MEDS: HYDROmorphone INJ 1 MG/ML SYRINGE IV PRN ×3 (00:47→16:11)
[2020-02-20] MEDS: SODIUM CHLORIDE 0.9% 1000ML 1,000 ML IV SCH ×3 (00:50→23:41)
[2020-02-20] MEDS: HydrALAZINE HCL 20 MG/ML VIAL IV PRN ×2 (04:46→18:14)
[2020-02-20] MEDS: METOPROLOL TARTRATE 50 MG TAB PO SCH (05:47)
[2020-02-20 08:02] LABS: Hematocrit (blood only) 50.3 % (42-52); Hemoglobin 17.1 g/dL (14.0-18.0); Mean Corpuscular Volume 91.3 fL (80-100); Neutrophils % (auto) 78.9 %; Platelet Count 339 K/uL (130-400); RDW Coefficient of Variation 13.9 % (11.5-14.5); RDW Standard Deviation 46.9 fL (36.4-46.3); Red Blood Count 5.51 M/uL (4.7-6.1); White Blood Count 14.91 K/uL (4.8-10.8)
[2020-02-20 08:03] LABS: Basophils # (auto) 0.07 K/uL (0-0.2); Basophils % (auto) 0.5 %; Eosinophils # (auto) 0.12 K/uL (0-0.5); Eosinophils % (auto) 0.8 %; Immature Granulocytes # (auto) 0.03 K/uL (0.00-0.02); Immature Granulocytes % (auto) 0.2 %; Lymphocytes # (auto) 1.66 K/uL (1.2-3.4); Lymphocytes % (auto) 11.1 %; Monocytes # (auto) 1.26 K/uL (0.11-0.59); Monocytes % (auto) 8.5 %; Neutrophils # (auto) 11.77 K/uL (1.4-6.5)
[2020-02-20 08:25] LABS: INR 3.9 (0.9-1.1); Prothrombin Time 38.4 Seconds (9.0-12.0)
[2020-02-20 08:30] LABS: BUN Creatinine Ratio 16.1 (10-20); Calcium 8.8 mg/dl (8.5-10.1); Creatinine Clr Calc Pharmacy 34.6 ml/min; Est GFR (African American) 49.7; Est GFR (Non-African American) 42.9; Potassium 4.3 mmol/L (3.5-5.1)
[2020-02-20] MEDS: DOCUSATE SODIUM/SENNA 50/8.6MG TAB PO SCH (09:12)
[2020-02-20] MEDS: MUPIROCIN 2% OINT 22 GM TUBE EXT SCH ×2 (09:20→20:14)
[2020-02-20] MEDS: LACTULOSE SYRUP 20 GM/30 ML UDC PO SCH ×3 (13:43→20:15)
--- NOTE | 2020-02-20 13:58 | History & Physical Bridge Note ---
Date of Service February 20, 2020 History & Physical Bridge Note I have examined the patient, reviewed the History & Physical and in the interval since the performance of the History & Physical I have noted the following changes of clinical significance: no changes noted Plan for cystoscopy with left stent placement.
[2020-02-20] MEDS ORDERED: MIDAZOLAM HCL 1 MG/ML 2ML VIAL ONE (14:10)
[2020-02-20] MEDS ORDERED: fentaNYL citrate 100 MCG/2 ML VIAL ONE (14:10)
[2020-02-20] MEDS ORDERED: PROPOFOL IV EMULSION 10 MG/ML 20 ML VIAL IV ONE (14:13)
[2020-02-20] MEDS ORDERED: ONDANSETRON INJ 2 MG/ML 2 ML VIAL ONE (14:13)
--- NOTE | 2020-02-20 14:29 | Anesthesiology Consultation ---
Date of Service February 20, 2020 Assessment & Plan ASA ASA3 Proposed Anesthesia Anesthesia Type: MAC Risk / Benefits Reviewed With: PT / POA / Parent / Guardian, Accepts Plan and Informed Consent Obtained History Surgery Operation Date: 02/20/20 14:00 Proposed Procedures p Cystoscopy - Fausto Alegre DO Height/Weight Height: 5 ft 5 in Weight: 62.6 kg Allergies Allergy/AdvReac Type Severity Reaction Status Date / Time No Known Allergies Allergy Unverified 02/18/20 01:29 Medications Home Medications Medication Instructions Recorded Confirmed Last Taken amlodipine 10 mg PO DAILYBD 02/14/20 02/18/20 02/13/20 carbamazepine 200 mg PO PM 02/14/20 02/18/20 02/13/20 latanoprost 1 drp OPB HS 02/14/20 02/18/20 02/13/20 lisinopril 20 mg PO DAILYBD 02/14/20 02/18/20 02/13/20 metoprolol tartrate 25 mg PO DAILYBD 02/14/20 02/18/20 02/13/20 rosuvastatin 40 mg PO DAILYBD 02/14/20 02/18/20 02/13/20 tamsulosin [Flomax] 0.4 mg PO HS #7 cap 02/14/20 02/18/20 Unknown warfarin 2.5 mg PO 4XWK 02/14/20 02/18/20 02/13/20 warfarin 3.5 mg PO 3XWK 02/14/20 02/18/20 02/11/20 aspirin 81 mg PO QAM 02/18/20 02/18/20 Unknown fluorouracil 1 applic TOPICAL BID PRN 02/18/20 02/18/20 Unknown meclizine 12.5 mg PO DAILY PRN 02/18/20 02/18/20 Unknown mupirocin 1 applic TOPICAL BID 02/18/20 02/18/20 Unknown tramadol 50 mg PO Q8H PRN #10 tab 02/18/20 02/18/20 Unknown Active Medications Generic Name Dose Route Start Last Admin Trade Name Freq PRN Reason Stop Dose Admin Amlodipine Besylate 10 mg 02/19/20 15:30 02/19/20 15:57 Norvasc PO 03/20/20 15:29 10 mg DAILYBD EMELIA Administration Carbamazepine 200 mg 02/18/20 21:00 02/19/20 16:10 Tegretol Xr PO 03/19/20 20:59 200 mg QDD EMELIA Administration Hydralazine HCl 10 mg 02/18/20 19:50 02/20/20 04:46 Hydralazine Hcl IV 03/19/20 19:49 10 mg Q6 PRN Administration Hypertension Hydromorphone HCl 1 mg 02/19/20 00:02 02/20/20 09:10 Dilaudid IV 03/03/20 23:13 1 mg Q3H PRN Administration Pain Sodium Chloride 1,000 mls @ 100 mls/hr 02/18/20 19:50 02/20/20 11:17 Nss 1000ml IV 03/19/20 19:49 100 mls/hr .Q10H EMELIA Administration Lactulose 20 gm 02/20/20 10:15 02/20/20 13:43 Chronulac PO 03/21/20 10:14 20 gm TID EMELIA Administration Latanoprost 1 drops 02/18/20 21:00 02/19/20 21:34 Xalatan Oph OPB 03/19/20 20:59 1 drops HS EMELIA Administration Metoprolol Tartrate 50 mg 02/20/20 05:00 02/20/20 05:47 Lopressor PO 03/21/20 04:59 50 mg DAILYBD EMELIA Administration Mupirocin 1 appln 02/18/20 21:00 02/20/20 09:20 Bactroban 2% EXT 03/19/20 20:59 Not Given BID EMELIA Oxycodone HCl 5 - 10 mg 02/18/20 23:15 02/19/20 22:31 Roxicodone Immediate Rel PO 03/03/20 23:14 5 mg Q4H PRN Administration Pain Senna/Docusate Sodium 1 tab 02/19/20 09:00 02/20/20 09:12 Senokot S PO 03/20/20 08:59 1 tab QAM EMELIA Administration Tamsulosin HCl 0.4 mg 02/18/20 21:00 02/19/20 21:33 Flomax PO 03/19/20 20:59 0.4 mg HS EMELIA Administration Past Medical History Medical History CAD (coronary artery disease) History of [place] (myocardial infarction) Paroxysmal A-fib Exercise / Class Metabolic Activity II 4-5 Yardwork/Stairs/Walk up hill Past Family History Family History Mother Myocardial infarction Father Cancer Multiple Myeloma Past Surgical History Surgical History History of coronary artery bypass graft S/P appendectomy Past Anesthesia History No Hx of Anesthesia Complications and No Family Hx of Anesthesia Complications History of PONV No Hx of PONV and No Hx of Motion Sickness Social History Smoking Status: Former smoker Hx Alcohol Use: Yes Alcohol type: wine and hard liquor alcohol intake frequency: a few times a week Hx Substance Use: No Review of Systems denies fever/cough/ colds/ chest pain/ SOB/ JOHNNY Constitutional: no fever and no chills Respiratory: no cough and no dyspnea denies JOHNNY Cardiovascular: no chest pain and no dyspnea on exertion Physical Exam Vital Signs Last Vital Signs Temp 36.8 C 02/20/20 11:00 Pulse 108 H 02/20/20 11:00 Resp 18 02/20/20 11:00 BP 147/86 H 02/20/20 11:00 Pulse Ox 96 02/20/20 11:00 ENMT Mouth: no TMJ abnormality and no dentition abnormality Thyromental Distance: > or= 3.5 Finger Breadths Mallampati Class: II Neck neck extension not limited Respiratory normal respiratory effort; no respiratory distress Auscultation: lungs clear to auscultation bilaterally Cardiovascular Rate/Rhythm: regular rate and regular rhythm Neurologic moves all extremities Psychiatric Orientation: alert and oriented x 3 Testing Laboratory Results 02/20/20 07:41 02/20/20 07:41 PT 38.4 Seconds (9.0-12.0) H 02/20/20 07:41 INR 3.9 (0.9-1.1) H 02/20/20 07:41
[2020-02-20] MEDS ORDERED: ePHEDrine sulfate 50 MG/ML AMP IV PRN (14:35)
[2020-02-20] MEDS ORDERED: ONDANSETRON INJ 2 MG/ML 2 ML VIAL IV PRN (14:35)
[2020-02-20] MEDS ORDERED: HYDROmorphone INJ 2 MG/ML SYR/VIAL IV PRN (14:35)
[2020-02-20] MEDS ORDERED: ATROPINE SULFATE 0.1 MG/ML 10ML SYR IV PRN (14:35)
[2020-02-20] MEDS ORDERED: IOTHALAMATE MEGLUMINE II 17.2% 250 ML VIAL ONE (14:52)
[2020-02-20] MEDS ORDERED: CEFAZOLIN 250 MG/ML 1 GM VIAL ONE (14:53)
--- NOTE | 2020-02-20 15:06 | Hospitalist Progress Note ---
Date of Service February 20, 2020 Assessment & Plan (1) Hydronephrosis with obstructing calculus: (2) Calculus of distal left ureter: (3) Flank Pain: (4) XIOMY (acute kidney injury): (5) Abdominal pain: Per DEJAH Ordonez's notes: Patient presenting with left sided flank pain and LLQ pain. Noted to have 5 mm obstructing stone of the left distal ureter that has been present for at least 4 days. He now also has left sided ureterohydronephrosis and XIOMY. Creatinine bumped from 0.9 at baseline to 1.9 today. Likely from obstructive uropathy. (+) recurrence of L sided flank pain crea remains elevated at 1.[address] Alegre, for stent placement today Continue IV fluids, pain control, Flomax Monitor closely (6) Constipation: small BM yesterday no BMs for 2 weeks as per patient KUB 02/17: no obstruction start Lactulose TID continue Senokot S GI consulted, discussed with Dr. Cooney (7) HTN (hypertension): elevated likely secondary to pain Continue home medications including amlodipine and metoprolol. Hydralazine 10 mg PRN systolic BP >160 Hold lisinopril due to XIOMY Continue to monitor BP (8) History of [place] (myocardial infarction): (9) CAD (coronary artery disease): (10) Paroxysmal A-fib: HR currently controlled. No chest pain. Monitor on Med/Surg with tele. Continue metoprolol. INR 3.9 Hold ASA, patient for cystoscopy, stent placement (11) DVT prophylaxis: INR 3.9 Disposition Anticipate discharge to home medically stable Admission and Anticipated Discharge Date Admission Date: February 18, 2020 Subjective ff up for L ureteral stone with obstructive uropathy seen resting in bed, not in distress reports recurrence of L flank pain, 04/10 no hematuria, chills no chest pain, dyspnea, palpitations, dizziness only had a small BM yesterday, (+) flatus, no nausea no other symptoms Review of Systems Review of Systems: All systems reviewed & are unremarkable except as noted in HPI & below Physical Exam Physical Exam: General- oriented x 3, not in distress, speaks in sentences with no effort or accessory muscle use Eyes- anicteric Neck- no JVD Lungs- clear BS BL Heart- normal rate, regular rhythm; no murmurs Abdomen- normal bowel sounds, nondistended, soft, nontender Extremities- no pretibial edema, no calf tenderness Neuro- alert, oriented x 3; no gross focal neurologic deficits Skin- warm & dry Results & Data Results & Data ([facility]) Vital Signs (Past 12 Hours) Vital Signs Temp Pulse Pulse Resp BP BP Pulse Ox 02/20/20 11:00 36.8 C 108 H 18 147/86 H 96 02/20/20 08:00 36.7 C 95 H 18 137/86 96 02/20/20 07:00 85 02/20/20 05:45 122 H 151/90 H 02/20/20 05:34 36.6 C 116 H 20 188/93 H 97 Laboratory Results Laboratory Results - last 24 hr 02/19/20 02/20/20 02/20/20 18:22 07:41 07:41 WBC 14.91 H RBC 5.51 Hgb 17.1 Hct 50.3 MCV 91.3 MCH 31.0 MCHC 34.0 RDW Std Deviation 46.9 H RDW Coeff of Bonnie 13.9 Plt Count 339 MPV 10.0 Immature Gran % (Auto) 0.2 Neut % (Auto) 78.9 Lymph % (Auto) 11.1 [place] % (Auto) 8.5 Eos % (Auto) 0.8 Baso % (Auto) 0.5 Immature Gran # (Auto) 0.03 H Neut # (Auto) 11.77 H Lymph # (Auto) 1.66 [place] # (Auto) 1.26 H Eos # (Auto) 0.12 Baso # (Auto) 0.07 PT 52.6 H 38.4 H INR 5.5 H 3.9 H Sodium Potassium Chloride Carbon Dioxide Anion Gap BUN Creatinine Est Cr Clr Drug Dosing Est GFR ( Amer) Est GFR (Non-Af Amer) BUN/Creatinine Ratio Glucose Calcium 02/20/20 07:41 WBC RBC Hgb Hct MCV MCH MCHC RDW Std Deviation RDW Coeff of Bonnie Plt Count MPV Immature Gran % (Auto) Neut % (Auto) Lymph % (Auto) [place] % (Auto) Eos % (Auto) Baso % (Auto) Immature Gran # (Auto) Neut # (Auto) Lymph # (Auto) [place] # (Auto) Eos # (Auto) Baso # (Auto) PT INR Sodium 133 L Potassium 4.3 Chloride 102 Carbon Dioxide 24 Anion Gap 7.0 BUN 25 H Creatinine 1.53 H Est Cr Clr Drug Dosing 34.6 Est GFR ( Amer) 49.7 Est GFR (Non-Af Amer) 42.9 BUN/Creatinine Ratio 16.1 Glucose 130 H Calcium 8.8 (1) Abdominal pain Abdominal location: generalized Qualified Code(s): R10.84 - Generalized abdominal pain (2) Constipation Constipation type: unspecified constipation type Qualified Code(s): K59.00 - Constipation, unspecified
--- NOTE | 2020-02-20 15:21 | Operative Report ---
PG Post Operative Report Pre & Post Diagnosis Obstructing Left Ureteral Stone Same with bladder stones and purulent urine within renal pelvis Operation Date: 02/20/20 14:00 <No data on this case meets the specified criteria> I identified the patient and participated in the time-out.: Yes Procedure Cystoscopy with bladder stone destruction and removal and left retrograde pyelogram, urine aspiration, and stent placement. Operation Date: 02/20/20 14:00 <No data on this case meets the specified criteria> Surgeon Fausto Alegre, II, DO Aircraft Launch And Recovery Technician None Estimated Blood Loss 1 Findings Consistent with Post-Op Diagnosis Stent placed in good position. Large amount of small bladder stones, innumerable. Purulent dark urine with old clot in renal pelvis. Specimens Bladder stones Urine Left Kidney Drains 6 Fr Multilength Anesthesia Type MAC Complications none Disposition Disposition: Recovery Room Indications Patient with obstruction. Risks and benefits discussed at length. Description of Procedure Patient was consented and brought back to the operating room. Patient was placed under anesthesia in the supine position and moved to the dorsal lithotomy position. Patient was prepped and draped in the regular sterile fashion. A time out was completed. A 30degree Cystoscope was placed into the bladder and the entire bladder was examined. An innumerable amount of small stones were discovered in the base of the bladder with sizes ranging from <1 to 5 mm in size. These were destroyed and removed and sent for analysis. The UO's were identified. The UO was cannulized with a catheter and immediately a large amount of debris and purulent urine was drained. Urine was aspirated and sent for culture. The renal pelvis was drained and a retrograde pyelogram was completed. A wire was then placed. With the wire in place, a 6 Fr Double J stent was placed. It was confirmed with fluoroscopy. With the stent in place, the bladder was emptied. The bladder was irrigated further to remove debris draining from the renal pelvis. Due to the debris as well as the bladder stones and a large median lobe, an 18 Fr Coude catheter was placed after the scope was removed. The patient was cleaned, aroused from anesthesia, and transferred to the pacu in stable condition having tolerated the procedure well with no complications. I was present and participated in all aspects of the procedure. The patient will be monitored in the PACU until transferred. I attest to the content of the Intraoperative Record and any orders documented therein. Any exceptions are noted below.
[2020-02-20] MEDS: fentaNYL citrate 100 MCG/2 ML VIAL IV PRN ×2 (15:35→15:40)
--- NOTE | 2020-02-20 15:42 | Fluoroscopy Report ---
INTRAOPERATIVE RADIOGRAPHS CLINICAL HISTORY: Left ureteral stent placement. Fluoroscopy time: 33 seconds. FINDINGS: 4 spot fluoroscopic views of the left abdomen are correlated with abdominal CT dated 020. The initial image shows a catheter projecting over the left renal pelvis. There is hydronephrosi s shown following contrast administration. The final 2 images show the proximal and distal ends of a left ureteral stent in appropriate position. IMPRESSION: Intraoperative images from a left ureteral stent placement procedure as above. Electronically signed by: Martin Rosen M.D. 02/20/2020 3:41 PM
--- NOTE | 2020-02-20 15:44 | Anesthesiology Progress Note ---
Date of Service February 20, 2020 Anesthesia Post Procedure Vital Signs Vital Signs: Temp Pulse Pulse Pulse Resp BP BP 02/20/20 15:35 100 H 17 135/77 02/20/20 15:26 36.7 C 92 H 18 135/77 02/20/20 11:00 36.8 C 108 H 18 147/86 H 02/20/20 08:00 36.7 C 95 H 18 137/86 02/20/20 07:00 85 02/20/20 05:45 122 H 151/90 H 02/20/20 05:34 36.6 C 116 H 20 188/93 H 02/20/20 00:47 36.8 C 83 20 182/78 H 02/20/20 00:25 90 02/19/20 20:45 159/81 H 02/19/20 20:07 36.9 C 83 18 185/78 H 02/19/20 15:55 111 H 163/84 H Pulse Ox 02/20/20 15:35 99 02/20/20 15:26 98 02/20/20 11:00 96 02/20/20 08:00 96 02/20/20 07:00 02/20/20 05:45 02/20/20 05:34 97 02/20/20 00:47 94 02/20/20 00:25 02/19/20 20:45 02/19/20 20:07 96 02/19/20 15:55 Pain Intensity Abdomen: Pain Intensity: 5 Left Flank: Pain Intensity: 10 Penis: Pain Intensity: 5 Transfer of Care Handoff Completed per policy Notes Mental Status: alert / awake / arousable and participated in evaluation Patient Amnestic to Procedure: Yes Nausea / Vomiting: adequately controlled Pain: adequately controlled Airway Patency, RR, SpO2: stable & adequate BP & HR: stable & adequate Hydration State: stable & adequate Anesthetic Complications: no major complications apparent and Pt Satisfied with anesthetic care
--- NOTE | 2020-02-20 15:58 | Gastrointestinal Consultation ---
Date of Consultation February 20, 2020 Assessment & Plan (1) Constipation: (2) Abdominal pain: likely functional constipation recs: lactulose TID starting today if no improvement/significant bowel movements by tomorrow afternoon then can give a fleet enema supportive care replete ashley giffordn Thank you for allowing me to participate in the care of this patient. History of Present Illness Attending Physician: Dav Jimenes MD 79 yo male here with kidney stones and constipation. GI consulted for this. He notes no bowel movements for 15 days, has never had this happen before. Previously was having daily regular bowel movements. CT showed no evidence of bowel obstruction. Had a small bm with an enema, but did not response to conventional laxative therapy. Has not tried lactulose. notes some LLQ abdominal pains. labs reviewed. Allergies Allergy/AdvReac Type Severity Reaction Status Date / Time No Known Allergies Allergy Unverified 02/18/20 01:29 Home Medications Home Medications Medication Instructions Recorded Confirmed Type amlodipine 10 mg PO DAILYBD 02/14/20 02/18/20 History carbamazepine 200 mg PO PM 02/14/20 02/18/20 History latanoprost 1 drp OPB HS 02/14/20 02/18/20 History lisinopril 20 mg PO DAILYBD 02/14/20 02/18/20 History metoprolol tartrate 25 mg PO DAILYBD 02/14/20 02/18/20 History rosuvastatin 40 mg PO DAILYBD 02/14/20 02/18/20 History tamsulosin [Flomax] 0.4 mg PO HS #7 cap 02/14/20 02/18/20 Rx warfarin 2.5 mg PO 4XWK 02/14/20 02/18/20 History warfarin 3.5 mg PO 3XWK 02/14/20 02/18/20 History aspirin 81 mg PO QAM 02/18/20 02/18/20 History fluorouracil 1 applic TOPICAL BID PRN 02/18/20 02/18/20 History meclizine 12.5 mg PO DAILY PRN 02/18/20 02/18/20 History mupirocin 1 applic TOPICAL BID 02/18/20 02/18/20 History tramadol 50 mg PO Q8H PRN #10 tab 02/18/20 02/18/20 Rx Patient History Medical History CAD (coronary artery disease) History of [place] (myocardial infarction) Paroxysmal A-fib Surgical History History of coronary artery bypass graft S/P appendectomy Family History Mother Myocardial infarction Father Cancer Multiple Myeloma Social History Preferred Language: Kiny[place] Communication Ability: Effective [place] Operator Required: No Beliefs That Will Affect Care: None and Pentec[employer]al Current Living Situation: Spouse Other Information That Helps Us Care for You: No Feels Safe at Home: Yes Safety Concerns: Feels Safe At This Time Smoking Status: Former smoker Hx Alcohol Use: Yes Alcohol type: wine and hard liquor Hx Substance Use: No Review of Systems Constitutional: no fever, no chills and no weight loss Eyes: as per Subjective / HPI Ear, Nose, Mouth, Throat: as per Subjective / HPI Respiratory: no dyspnea and no dyspnea on exertion Cardiovascular: no chest pain and no palpitations Gastrointestinal: as per Subjective / HPI Musculoskeletal: no joint pain and no swelling Integumentary: no rash and no lesions Neurologic: no numbness and no paresthesia Psychiatric: no depression and no anxiety Endocrine: no fatigue Hematologic / Lymphatic: no easy bleeding and no easy bruising Physical Exam Constitutional: WD/WN, vitals as above Eyes: EOM intact bilaterally Neck: normal visual inspection Respiratory: normal respiratory effort, lungs clear to auscultation Cardiovascular: RRR, no murmur, no edema Gastrointestinal (Abdomen): Inspection/Auscultation: abdomen normal to inspection; abdomen not distended Percussion/Palpation: abdomen soft; abdomen nontender and no hepatosplenomegaly Musculoskeletal: Extremities: no cyanosis Gait: normal gait Skin: no rashes, warm and dry Neurologic: moves all extremities Psychiatric: A+Ox3, euthymic affect Results & Data ([facility]) Vital Signs (Past 12 Hours) Vital Signs Temp Pulse Pulse Pulse Resp BP BP 02/20/20 15:45 90 13 141/94 H 02/20/20 15:35 100 H 17 135/77 02/20/20 15:26 36.7 C 92 H 18 135/77 02/20/20 11:00 36.8 C 108 H 18 147/86 H 02/20/20 08:00 36.7 C 95 H 18 137/86 02/20/20 07:00 85 02/20/20 05:45 122 H 151/90 H 02/20/20 05:34 36.6 C 116 H 20 188/93 H Pulse Ox 02/20/20 15:45 96 02/20/20 15:35 99 02/20/20 15:26 98 02/20/20 11:00 96 02/20/20 08:00 96 02/20/20 07:00 02/20/20 05:45 02/20/20 05:34 97 PG Care Time/CCT Total # of Minutes Spent Total Time Spent with Patient: Total time spent is greater than 50% in coordination of care (as documented) at patient's floor/unit and/or counseling patient: Coding Level of Care Code 20256 Initial Inpt Care Lvl 3 Diagnoses Constipation K59.00 Constipation type: unspecified constipation type Abdominal pain R10.84 Abdominal location: generalized (1) Constipation Constipation type: unspecified constipation type Qualified Code(s): K59.00 - Constipation, unspecified (2) Abdominal pain Abdominal location: generalized Qualified Code(s): R10.84 - Generalized abdominal pain
[2020-02-20] MEDS: CARBAMAZEPINE 200 MG TABCR PO SCH (16:17)
[2020-02-20] MEDS: AMLODIPINE BESYLATE 5 MG TAB PO SCH (16:17)
[2020-02-20] MEDS: ACETAMINOPHEN 325 MG TAB PO PRN (18:14)
[2020-02-20] MEDS: OXYCODONE HCL IR 5 MG TAB (IMMEDIATE RELEASE) PO PRN (19:26)
[2020-02-20] MEDS: LATANOPROST 0.005% OP SOLN 2.5 ML BTL OPB SCH (20:15)
[2020-02-20] MEDS: TAMSULOSIN HCL 0.4 MG CAP PO SCH (20:15)
[2020-02-20] MEDS ORDERED: Nursing to Pharmacy Communication SCH (23:45)
[2020-02-21] MEDS: HYDROmorphone INJ 1 MG/ML SYRINGE IV PRN (02:20)
[2020-02-21] MEDS: MUPIROCIN 2% OINT 22 GM TUBE EXT SCH ×2 (07:56→21:44)
[2020-02-21] MEDS: LACTULOSE SYRUP 20 GM/30 ML UDC PO SCH ×3 (07:56→21:44)
[2020-02-21] MEDS: SODIUM CHLORIDE 0.9% 1000ML 1,000 ML IV SCH (07:57)
[2020-02-21] MEDS: DOCUSATE SODIUM/SENNA 50/8.6MG TAB PO SCH (07:58)
--- NOTE | 2020-02-21 08:30 | Urology Progress Note ---
Date of Service February 21, 2020 Assessment & Plan (1) Hydronephrosis with obstructing calculus: POD 1 s/p left stent. Purulent urine drained with stent. Innumerable bladder stones with median lobe of prostate. Catheter placed. May need 3-5 days for drainage. Needs likely 1-2 weeks of Abx and plan for outpatient stone treatment. Tolerating stent. Catheter with discomfort. No fevers or chills overnight. Subjective Postop from stent placement for obstruction issues. Patient has been tolerating well. Has noticed some frequency and urgency. Has not had severe pain in the back and flank. Does have occasional burning and irritation. No severe episodes or major changes. No new nausea or vomiting. Had tolerated anesthesia without major problems Review of Systems Review of Systems: All systems reviewed & are unremarkable except as noted in HPI & below Physical Exam Physical Exam: General: Alert in no acute distress. HEENT: Normocephalic Atraumatic. Inspection normal. Cranial Nerves 2-12 Grossly intact. Normal inspection of face. Normal inspection of neck. Psychologic: Normal affect. Respiratory: Nonlabored. No use of accessory muscles. No tachypnea or dyspnea. Cardiovascular: No tachycardia Skin: [place] and Dry. No rashes or visible lesions. Extremities/Lymphatics: No edema Abdomen: Soft Non-distended. No rebound or guarding. Results & Data Vital Signs (Past 12 Hours) Vital Signs Temp Pulse Pulse Resp BP Pulse Ox 02/21/20 07:21 36.9 C 93 H 18 165/96 H 94 02/21/20 04:07 36.8 C 94 H 18 152/70 H 97 02/21/20 02:22 109 H 159/75 H 02/21/20 01:45 112 H 02/21/20 00:52 36.8 C 20 179/70 H 95 PG Care Time/CCT Total # of Minutes Spent Total Time Spent with Patient: Total time spent is greater than 50% in coordination of care (as documented) at patient's floor/unit and/or counseling patient: Coding Level of Care Code 86894 Subseq Hosp Care Lvl 3 Diagnoses Hydronephrosis with obstructing calculus N13.2
[2020-02-21] MEDS: OXYCODONE HCL IR 5 MG TAB (IMMEDIATE RELEASE) PO PRN ×2 (09:25→18:02)
[2020-02-21 12:39] LABS: Basophils # (auto) 0.05 K/uL (0-0.2); Basophils % (auto) 0.5 %; Eosinophils # (auto) 0.18 K/uL (0-0.5); Eosinophils % (auto) 1.7 %; Hematocrit (blood only) 48.5 % (42-52); Immature Granulocytes # (auto) 0.03 K/uL (0.00-0.02); Immature Granulocytes % (auto) 0.3 %; Lymphocytes # (auto) 1.14 K/uL (1.2-3.4); Lymphocytes % (auto) 10.5 %; Mean Corpuscular Hemoglobin 30.3 pg (25-34); Mean Corpuscular Volume 91.9 fL (80-100); Mean Platelet Volume 9.8 fL (7.4-10.4); Monocytes # (auto) 1.15 K/uL (0.11-0.59); Monocytes % (auto) 10.6 %; Neutrophils # (auto) 8.27 K/uL (1.4-6.5); Neutrophils % (auto) 76.4 %; Platelet Count 284 K/uL (130-400); RDW Coefficient of Variation 13.8 % (11.5-14.5); RDW Standard Deviation 46.5 fL (36.4-46.3); Red Blood Count 5.28 M/uL (4.7-6.1); White Blood Count 10.82 K/uL (4.8-10.8)
[2020-02-21 12:46] LABS: INR 2.4 (0.9-1.1); Prothrombin Time 23.7 Seconds (9.0-12.0)
[2020-02-21 13:06] LABS: BUN Creatinine Ratio 14.4 (10-20); Calcium 8.3 mg/dl (8.5-10.1); Creatinine Clr Calc Pharmacy 49.5 ml/min; Est GFR (African American) 76.7; Est GFR (Non-African American) 66.1; Potassium 3.7 mmol/L (3.5-5.1)
[2020-02-21] MEDS: AMLODIPINE BESYLATE 5 MG TAB PO SCH (15:34)
[2020-02-21] MEDS: METOPROLOL TARTRATE 50 MG TAB PO SCH (15:34)
[2020-02-21] MEDS: CARBAMAZEPINE 200 MG TABCR PO SCH (15:34)
--- NOTE | 2020-02-21 15:38 | Communication Note ---
Date of Service: February 21, 2020 GI brief note: patient responded well to lactulose, having multiple significant large bms. Recs: lactulose prn constipation GI will sign off at this time, recall as needed Brandon Cooney MD Gastroenterology
[2020-02-21] MEDS: TAMSULOSIN HCL 0.4 MG CAP PO SCH (21:43)
[2020-02-21] MEDS: LATANOPROST 0.005% OP SOLN 2.5 ML BTL OPB SCH (21:45)
--- NOTE | 2020-02-22 07:32 | Hospitalist Progress Note ---
Date of Service delayed entry date of service 02/21/20 February 22, 2020 Assessment & Plan (1) Hydronephrosis with obstructing calculus: (2) Calculus of distal left ureter: (3) Flank Pain: (4) XIOMY (acute kidney injury): (5) Abdominal pain: Per DEJAH Ordonez's notes: Patient presenting with left sided flank pain and LLQ pain. Noted to have 5 mm obstructing stone of the left distal ureter that has been present for at least 4 days. He now also has left sided ureterohydronephrosis and XIOMY. Creatinine bumped from 0.9 at baseline to 1.9 today. Likely from obstructive uropathy. s/p L ureter stent placement Roman cath in place crea normalized continue pain control, Flomax Monitor closely (6) Constipation: (+) BMs after Lactulose continue for now GI consulted, discussed with Dr. Cooney (7) HTN (hypertension): elevated likely secondary to pain Continue home medications including amlodipine and metoprolol. Hydralazine 10 mg PRN systolic BP >160 Hold lisinopril due to XIOMY Continue to monitor BP (8) History of [place] (myocardial infarction): (9) CAD (coronary artery disease): (10) Paroxysmal A-fib: HR currently controlled. No chest pain. Monitor on Med/Surg with tele. Continue metoprolol. INR 2.5 Hold ASA, coumadin in light of recent procedure (11) DVT prophylaxis: INR 2.5 Disposition Anticipate discharge to home medically stable Admission and Anticipated Discharge Date Admission Date: February 18, 2020 Subjective ff up for l ureteral stone, etc seen sitting up in bed, not in distress still having moderate to severe L flank pain no hematuria no BM yet, no nausea no fever/chills, headache, chest pain, dyspnea, palpitations, dizziness no other symptoms Physical Exam Physical Exam: General- oriented x 3, not in distress, speaks in sentences with no effort or accessory muscle use Eyes- anicteric Neck- no JVD Lungs- clear BS BL Heart- normal rate, regular rhythm; no murmurs Abdomen- normal bowel sounds, nondistended, soft, mild L flank pain roman cath in place: yellow urine Extremities- no pretibial edema, no calf tenderness Neuro- alert, oriented x 3; no gross focal neurologic deficits Skin- warm & dry Results & Data Results & Data ([facility]) Vital Signs (Past 12 Hours) Vital Signs Temp Pulse Pulse Resp BP Pulse Ox 02/22/20 07:23 83 02/22/20 07:06 36.7 C 85 18 128/73 97 02/22/20 03:50 37 C 84 18 137/80 96 02/22/20 03:21 79 02/21/20 23:54 36.8 C 80 20 130/79 95 Laboratory Results all noted (1) Abdominal pain Abdominal location: generalized Qualified Code(s): R10.84 - Generalized abdominal pain (2) Constipation Constipation type: unspecified constipation type Qualified Code(s): K59.00 - Constipation, unspecified
[2020-02-22] MEDS: LACTULOSE SYRUP 20 GM/30 ML UDC PO SCH ×3 (08:07→20:07)
[2020-02-22] MEDS: MUPIROCIN 2% OINT 22 GM TUBE EXT SCH ×2 (08:07→20:07)
[2020-02-22] MEDS: DOCUSATE SODIUM/SENNA 50/8.6MG TAB PO SCH (08:10)
[2020-02-22] MEDS: OXYCODONE HCL IR 5 MG TAB (IMMEDIATE RELEASE) PO PRN (11:13)
[2020-02-22 11:14] LABS: BUN Creatinine Ratio 14.7 (10-20); Calcium 8.6 mg/dl (8.5-10.1); Creatinine Clr Calc Pharmacy 48.1 ml/min; Est GFR (African American) 74.1; Potassium 3.3 mmol/L (3.5-5.1)
[2020-02-22 13:46] LABS: INR 1.5 (0.9-1.1); Prothrombin Time 15.7 Seconds (9.0-12.0)
[2020-02-22] MEDS: lisinopriL 20 MG TAB PO SCH (14:41)
[2020-02-22] MEDS: CARBAMAZEPINE 200 MG TABCR PO SCH (15:21)
[2020-02-22] MEDS: AMLODIPINE BESYLATE 5 MG TAB PO SCH (15:21)
[2020-02-22] MEDS: METOPROLOL TARTRATE 50 MG TAB PO SCH (15:21)
[2020-02-22] MEDS ORDERED: WARFARIN SOD 2.5 MG TAB PO ONE (16:00)
[2020-02-22] MEDS ORDERED: WARFARIN SOD 1 MG TAB PO ONE (16:00)
[2020-02-22] MEDS: TAMSULOSIN HCL 0.4 MG CAP PO SCH (20:07)
[2020-02-22] MEDS: LATANOPROST 0.005% OP SOLN 2.5 ML BTL OPB SCH (20:08)
--- NOTE | 2020-02-22 23:02 | Hospitalist Progress Note ---
Date of Service February 22, 2020 Assessment & Plan (1) Hydronephrosis with obstructing calculus: (2) Calculus of distal left ureter: (3) Flank Pain: (4) XIOMY (acute kidney injury): (5) Abdominal pain: Per DEJAH Ordonez's notes: Patient presenting with left sided flank pain and LLQ pain. Noted to have 5 mm obstructing stone of the left distal ureter that has been present for at least 4 days. He now also has left sided ureterohydronephrosis and XIOMY. Creatinine bumped from 0.9 at baseline to 1.9 today. Likely from obstructive uropathy. Status post cystoscopy with stent placement, Dr. Fausto Alegre Postop day #2 Creatinine back to normal Still having significant left-sided flank pain Urine cultures negative Tellez catheter still in place Discussed with urologist Dr. Alegre Continue pain control, kidney function, continue Tellez catheter for now Pending further recommendations by urology service (6) Constipation: small BM yesterday no BMs for 2 weeks as per patient KUB 02/17: no obstruction started Lactulose TID --> positive BMs continue Senokot S GI consulted, discussed with Dr. Cooney Continue lactulose for now (7) HTN (hypertension): elevated likely secondary to pain Continue home medications including amlodipine and metoprolol. Hydralazine 10 mg PRN systolic BP >160 Resume lisinopril lisinopril Continue to monitor BP (8) History of [place] (myocardial infarction): (9) CAD (coronary artery disease): (10) Paroxysmal A-fib: HR currently controlled. No chest pain. Monitor on Med/Surg with tele. Continue metoprolol. Coumadin has been held INR 1.5 Patient takes Coumadin 3.5 mg Wednesdays, and 2.5 mg all other days Resume Coumadin, Coumadin 3.5 mg daily ordered for now, monitor INR Resume aspirin (11) DVT prophylaxis: INR 1.5 Coumadin resumed Disposition Anticipate discharge to home medically stable Admission and Anticipated Discharge Date Admission Date: February 18, 2020 Subjective Follow-up for left ureteral stone Seen resting in bed, sitting up, not in distress Still reports significant left flank pain getting out of bed and walking to the bathroom Tellez catheter in place, no issues Positive BMs yesterday, none yet today, no abdominal pain, no nausea or vomiting No other symptoms Review of Systems Review of Systems: All systems reviewed & are unremarkable except as noted in HPI & below Physical Exam Physical Exam: General- oriented x 3, not in distress, speaks in sentences with no effort or accessory muscle use Eyes- anicteric Neck- no JVD Lungs- clear breath sounds bilaterally, no rales/wheezes Heart- normal rate, regular rhythm; no murmurs Abdomen- normal bowel sounds, nondistended, soft, nontender Extremities- no pretibial edema, no calf tenderness Neuro- alert, oriented x 3; no gross focal neurologic deficits Skin- warm & dry Results & Data Results & Data ([facility]) Vital Signs (Past 12 Hours) Vital Signs Temp Pulse Pulse Resp BP Pulse Ox 02/22/20 19:05 36.8 C 88 20 157/94 H 97 02/22/20 15:30 102 H 02/22/20 15:13 36.8 C 104 H 18 110/75 99 02/22/20 11:27 36.3 C L 98 H 18 167/85 H 99 (1) Abdominal pain Abdominal location: generalized Qualified Code(s): R10.84 - Generalized abdominal pain (2) Constipation Constipation type: unspecified constipation type Qualified Code(s): K59.00 - Constipation, unspecified
[2020-02-23 08:25] LABS: INR 1.4 (0.9-1.1); Prothrombin Time 14.1 Seconds (9.0-12.0)
--- NOTE | 2020-02-23 08:59 | Hospitalist Progress Note ---
Date of Service February 23, 2020 Assessment & Plan (1) Hydronephrosis with obstructing calculus: (2) Calculus of distal left ureter: (3) Flank Pain: (4) XIOMY (acute kidney injury): (5) Abdominal pain: Per DEJAH Ordonez's notes: Patient presenting with left sided flank pain and LLQ pain. Noted to have 5 mm obstructing stone of the left distal ureter that has been present for at least 4 days. He now also has left sided ureterohydronephrosis and XIOMY. Creatinine bumped from 0.9 at baseline to 1.9 today. Likely from obstructive uropathy. Status post cystoscopy with stent placement, Dr. Fausto Alegre on 02/19 Creatinine back to normal Still having left-sided flank pain Urine cultures negative Tellez catheter still in place Continue pain control, kidney function, continue Tellez catheter for now Pending further recommendations by urology service (6) Constipation: no BMs for 2 weeks as per patient KUB 02/17: no obstruction started Lactulose TID --> positive BMs continue Senokot S GI signed off Continue lactulose for now (7) HTN (hypertension): elevated likely secondary to pain Continue home medications including amlodipine and metoprolol. Hydralazine 10 mg PRN systolic BP >160 Resume lisinopril Continue to monitor BP (8) History of [place] (myocardial infarction): (9) CAD (coronary artery disease): (10) Paroxysmal A-fib: HR currently controlled. No chest pain. Monitor on Med/Surg with tele. Continue metoprolol. Coumadin has been held INR 1.5 Patient takes Coumadin 3.5 mg Wednesdays, and 2.5 mg all other days Resume Coumadin, Coumadin 3.5 mg daily ordered for now, monitor INR Resume aspirin (11) DVT prophylaxis: INR 1.5 Coumadin resumed Disposition Anticipate discharge to home medically stable, await input today 2 Weeks Abx on DC Tellez in for 5 days ROS-No Headache, No Visual Changes, No Nausea, No Vomiting, No Fever, No Chills, No Neck Pain or Stiffness, No Chest Pain, No Palpitations, No SOB, No RIOS, No Cough, No Sputum, No Wheezing, No Abdominal Pain, No Diarrhea, No Hematemesis, No Hemoptysis, No Unexpected Weight Loss, Mild Flank pain, No Melena, No Hematochezia, No Frequency, No Urgency, No Burning, No Hematuria, No Rashes, No Diaphoresis. Appetite is Normal Physical Exam Gen-AAO x 3, NAD, Afebrile Head-NCAT, EOMI, PERRLA, Anicteric Sclera, No Posterior Pharyngeal Erythema Neck-Supple, No JVD, No Thyromegaly, No Masses, No LAD, No Bruits Lungs-Clear to Auscultation Bilaterally, No Rales, No Rhonchi, No Wheezing, No Crepitus Chest-No S4, +S1, +S2, No S3, No Murmurs, No Rubs, No Gallops, No Ectopy Abdomen-Soft, Bowel Sounds Present, Non Tender, Non Distended, No Hepatomegaly, No Splenomegaly, No Palpable Masses, No Rebound, No Rigidity, No Guarding Musculoskeletal-Full Range of Motion Bilaterally, No CVAT Extremities-No Cyanosis, No Clubbing, No Edema Nuero-Cranial Nerves II-XII grossly intact, Motor WNL, DTRs WNL, Strength WNL, Non Focal Psych-Normal Mood Admission and Anticipated Discharge Date Admission Date: February 18, 2020 Anticipated date of discharge: 02/24/20 Results & Data Results & Data ([facility]) Vital Signs (Past 12 Hours) Vital Signs Temp Pulse Pulse Resp BP BP Pulse Ox 02/23/20 07:25 36.8 C 81 18 136/85 96 02/23/20 07:22 97 H 02/23/20 04:40 147/74 H 02/23/20 03:21 36.6 C 72 18 174/89 H 96 (1) Abdominal pain Abdominal location: generalized Qualified Code(s): R10.84 - Generalized abdominal pain (2) Constipation Constipation type: unspecified constipation type Qualified Code(s): K59.00 - Constipation, unspecified
[2020-02-23] MEDS: ASPIRIN 81 MG ECTAB PO SCH (09:08)
[2020-02-23] MEDS: MUPIROCIN 2% OINT 22 GM TUBE EXT SCH ×2 (09:09→19:59)
[2020-02-23] MEDS: lisinopriL 20 MG TAB PO SCH (09:09)
[2020-02-23] MEDS: LACTULOSE SYRUP 20 GM/30 ML UDC PO SCH ×3 (09:09→19:58)
[2020-02-23] MEDS: DOCUSATE SODIUM/SENNA 50/8.6MG TAB PO SCH (09:12)
[2020-02-23] MEDS: AMLODIPINE BESYLATE 5 MG TAB PO SCH (16:02)
[2020-02-23] MEDS: METOPROLOL TARTRATE 50 MG TAB PO SCH (16:02)
[2020-02-23] MEDS: CARBAMAZEPINE 200 MG TABCR PO SCH (16:02)
[2020-02-23] MEDS: TAMSULOSIN HCL 0.4 MG CAP PO SCH (19:58)
[2020-02-23] MEDS: LATANOPROST 0.005% OP SOLN 2.5 ML BTL OPB SCH (19:58)
[2020-02-24 06:43] LABS: Basophils # (auto) 0.06 K/uL (0-0.2); Basophils % (auto) 0.6 %; Eosinophils # (auto) 0.47 K/uL (0-0.5); Eosinophils % (auto) 4.8 %; Hematocrit (blood only) 46.5 % (42-52); Hemoglobin 15.9 g/dL (14.0-18.0); Immature Granulocytes # (auto) 0.03 K/uL (0.00-0.02); Immature Granulocytes % (auto) 0.3 %; Lymphocytes # (auto) 2.15 K/uL (1.2-3.4); Lymphocytes % (auto) 22.1 %; Mean Corpuscular Hemoglobin 30.9 pg (25-34); Mean Corpuscular Hgb Conc 34.2 g/dL (32-36); Mean Corpuscular Volume 90.5 fL (80-100); Monocytes # (auto) 0.73 K/uL (0.11-0.59); Monocytes % (auto) 7.5 %; Neutrophils % (auto) 64.7 %; Platelet Count 282 K/uL (130-400); RDW Coefficient of Variation 13.8 % (11.5-14.5); RDW Standard Deviation 45.7 fL (36.4-46.3); Red Blood Count 5.14 M/uL (4.7-6.1); White Blood Count 9.74 K/uL (4.8-10.8)
[2020-02-24 06:50] LABS: INR 1.3 (0.9-1.1); Prothrombin Time 13.9 Seconds (9.0-12.0)
[2020-02-24 07:12] LABS: Albumin Level 3.1 gm/dl (3.4-5.0); BUN Creatinine Ratio 20.1 (10-20); Calcium 8.8 mg/dl (8.5-10.1); Est GFR (African American) 85.2; Est GFR (Non-African American) 73.6; Potassium 3.5 mmol/L (3.5-5.1)
[2020-02-24 07:15] LABS: Albumin Globulin Ratio 0.9 (0.9-2); Bilirubin,Total 0.6 mg/dl (0.2-1); Globulin 3.5 gm/dl (2.5-4.0); Total Protein 6.6 gm/dl (6.4-8.2)
[2020-02-24] MEDS: ASPIRIN 81 MG ECTAB PO SCH (08:38)
[2020-02-24] MEDS: lisinopriL 20 MG TAB PO SCH (08:38)
[2020-02-24] MEDS: LACTULOSE SYRUP 20 GM/30 ML UDC PO SCH ×3 (08:39→20:40)
[2020-02-24] MEDS: MUPIROCIN 2% OINT 22 GM TUBE EXT SCH ×2 (08:40→20:43)
--- NOTE | 2020-02-24 08:43 | Hospitalist Progress Note ---
Date of Service February 24, 2020 Assessment & Plan (1) Hydronephrosis with obstructing calculus: (2) Calculus of distal left ureter: (3) Flank Pain: (4) XIOMY (acute kidney injury): (5) Abdominal pain: Per DEJAH Ordonez's notes: Patient presenting with left sided flank pain and LLQ pain. Noted to have 5 mm obstructing stone of the left distal ureter that has been present for at least 4 days. He now also has left sided ureterohydronephrosis and XIOMY. Creatinine bumped from 0.9 at baseline to 1.9 today. Likely from obstructive uropathy. s/p L ureter stent placement Tellez cath in place, DC today Cr normalized continue pain control, Flomax Monitor closely (6) Constipation: (+) BMs after Lactulose continue for now GI on case (7) HTN (hypertension): elevated likely secondary to pain Continue home medications including amlodipine and metoprolol. Hydralazine 10 mg PRN systolic BP >160 Resume lisinopril Continue to monitor BP (8) History of [place] (myocardial infarction): (9) CAD (coronary artery disease): (10) Paroxysmal A-fib: HR currently controlled. No chest pain. Monitor on Med/Surg with tele. Continue metoprolol. INR 2.5 Hold ASA, Coumadin in light of recent procedure (11) DVT prophylaxis: INR 2.5 Disposition Anticipate discharge to home medically stable DC Tellez today ROS-No Headache, No Visual Changes, No Nausea, No Vomiting, No Fever, No Chills, No Neck Pain or Stiffness, No Chest Pain, No Palpitations, No SOB, No RIOS, No Cough, No Sputum, No Wheezing, No Abdominal Pain, No Diarrhea, No Hematemesis, No Hemoptysis, No Unexpected Weight Loss, No Flank pain, No Melena, No Hematochezia, No Frequency, No Urgency, No Burning, No Hematuria, No Rashes, No Diaphoresis. Appetite is Normal, Can't sit on commode wo severe pain Physical Exam Gen-AAO x 3, NAD, Afebrile Head-NCAT, EOMI, PERRLA, Anicteric Sclera, No Posterior Pharyngeal Erythema Neck-Supple, No JVD, No Thyromegaly, No Masses, No LAD, No Bruits Lungs-Clear to Auscultation Bilaterally, No Rales, No Rhonchi, No Wheezing, No Crepitus Chest-No S4, +S1, +S2, No S3, No Murmurs, No Rubs, No Gallops, No Ectopy Abdomen-Soft, Bowel Sounds Present, Non Tender, Non Distended, No Hepatomegaly, No Splenomegaly, No Palpable Masses, No Rebound, No Rigidity, No Guarding Musculoskeletal-Full Range of Motion Bilaterally, No CVAT Extremities-No Cyanosis, No Clubbing, No Edema Nuero-Cranial Nerves II-XII grossly intact, Motor WNL, DTRs WNL, Strength WNL, Non Focal Psych-Normal Mood Admission and Anticipated Discharge Date Admission Date: February 18, 2020 Anticipated date of discharge: 02/24/20 Results & Data Results & Data ([facility]) Vital Signs (Past 12 Hours) Vital Signs Temp Pulse Pulse Resp BP BP Pulse Ox 02/24/20 07:19 77 02/24/20 07:09 36.5 C 78 18 163/90 H 96 02/24/20 02:34 36.4 C L 86 20 162/70 H 96 (1) Abdominal pain Abdominal location: generalized Qualified Code(s): R10.84 - Generalized abdominal pain (2) Constipation Constipation type: unspecified constipation type Qualified Code(s): K59.00 - Constipation, unspecified
[2020-02-24] MEDS: DOCUSATE SODIUM/SENNA 50/8.6MG TAB PO SCH (09:10)
--- NOTE | 2020-02-24 09:47 | XRay Report ---
KUB HISTORY: Renal Stones COMPARISON: KUB 02/19/2020. FINDINGS: The bowel gas pattern is unremarkable. There are no dilated loops of small bowel to suggest an obstruction. A left ureteral stent is noted. This is likely in good position. The renal shadows are mostly obscured by overlying bowel gas. No definite renal or ureteral calculi. There is a Tellez c atheter seen within the mid pelvis. No pneumoperitoneum or pneumatosis. IMPRESSION: 1. The left ureteral stent and Tellez catheter are likely in good position. 2. No renal or ureteral calculi identified. ACT 112: Negative or not required by law. Electronically signed by: Corona Jackson M.D. 02/24/2020 9:46 AM
--- NOTE | 2020-02-24 12:35 | Urology Progress Note ---
Date of Service February 24, 2020 Assessment & Plan (1) Hydronephrosis with obstructing calculus: Assessment Intermittent left flank pain post left stent placement Again discussed with patient that this is a typical occurrence with a stent to have pain when he is urinating or try to have a bowel movement he does say that other than that the stent is not particularly bothersome Continue his pain medicine and Flomax follow-up with Dr. Alegre as an outpatient Subjective Patient on left ureteral stent post stone surgery. He was complaining of some flank pain when he urinates or has a bowel movement. He said otherwise the stent is tolerable. I did explain to him that when he urinates he forces urine back up the stent which then distends the collecting system causing some pain and this is a normal occurrence. He should continue with his pain medication as needed and Flomax Follow-up with Dr. Alegre after discharge Physical Exam Physical Exam: Constitutional Well-developed well-nourished Healthy appearing Neuro/psych Alert and oriented x3 Normal mood Normal affect Normal coordination Skin Normal color Normal turgor No rashes Warm and Dry Neck Normal visual inspection Pulmonary Normal rhythm and effort No respiratory distress No audible wheezes Able to speak in complete sentences Cardiac No peripheral edema Results & Data Vital Signs (Past 12 Hours) Vital Signs Temp Pulse Pulse Resp BP BP Pulse Ox 02/24/20 11:12 36.7 C 97 H 18 113/70 97 02/24/20 07:19 77 02/24/20 07:09 36.5 C 78 18 163/90 H 96 02/24/20 02:34 36.4 C L 86 20 162/70 H 96 PG Care Time/CCT Total # of Minutes Spent Total Time Spent with Patient: Total time spent is greater than 50% in coordination of care (as documented) at patient's floor/unit and/or counseling patient: Coding Level of Care Code 57412 Subseq Hosp Care Lvl 1 Diagnoses Hydronephrosis with obstructing calculus N13.2
[2020-02-24] MEDS: ACETAMINOPHEN 325 MG TAB PO PRN (14:38)
[2020-02-24] MEDS: METOPROLOL TARTRATE 50 MG TAB PO SCH (15:39)
[2020-02-24] MEDS: AMLODIPINE BESYLATE 5 MG TAB PO SCH (15:39)
[2020-02-24] MEDS: CARBAMAZEPINE 200 MG TABCR PO SCH (15:39)
[2020-02-24] MEDS: TAMSULOSIN HCL 0.4 MG CAP PO SCH (20:40)
[2020-02-24] MEDS: LATANOPROST 0.005% OP SOLN 2.5 ML BTL OPB SCH (20:41)
[2020-02-25 02:53] LABS: Component 2 DNR; Source BLADDER STONE
[2020-02-25] MEDS: OXYCODONE HCL IR 5 MG TAB (IMMEDIATE RELEASE) PO PRN (04:49)
[2020-02-25 05:48] LABS: Basophils # (auto) 0.08 K/uL (0-0.2); Basophils % (auto) 0.8 %; Eosinophils # (auto) 0.46 K/uL (0-0.5); Eosinophils % (auto) 4.8 %; Hemoglobin 15.5 g/dL (14.0-18.0); Immature Granulocytes # (auto) 0.03 K/uL (0.00-0.02); Immature Granulocytes % (auto) 0.3 %; Lymphocytes # (auto) 2.04 K/uL (1.2-3.4); Lymphocytes % (auto) 21.3 %; Mean Corpuscular Hemoglobin 31.1 pg (25-34); Mean Corpuscular Hgb Conc 34.4 g/dL (32-36); Mean Corpuscular Volume 90.2 fL (80-100); Mean Platelet Volume 9.9 fL (7.4-10.4); Monocytes % (auto) 7.3 %; Neutrophils # (auto) 6.29 K/uL (1.4-6.5); Neutrophils % (auto) 65.5 %; Platelet Count 307 K/uL (130-400); RDW Coefficient of Variation 13.9 % (11.5-14.5); RDW Standard Deviation 46.1 fL (36.4-46.3); Red Blood Count 4.99 M/uL (4.7-6.1)
[2020-02-25 05:57] LABS: INR 1.2 (0.9-1.1); Prothrombin Time 12.3 Seconds (9.0-12.0)
[2020-02-25 06:23] LABS: Albumin Level 3.2 gm/dl (3.4-5.0); BUN Creatinine Ratio 20.1 (10-20); Calcium 8.7 mg/dl (8.5-10.1); Est GFR (African American) 83.2; Est GFR (Non-African American) 71.8; Potassium 3.4 mmol/L (3.5-5.1)
[2020-02-25 06:26] LABS: Bilirubin,Total 0.6 mg/dl (0.2-1); Globulin 3.4 gm/dl (2.5-4.0); Total Protein 6.6 gm/dl (6.4-8.2)
[2020-02-25] MEDS: lisinopriL 20 MG TAB PO SCH (09:25)
[2020-02-25] MEDS: ASPIRIN 81 MG ECTAB PO SCH (09:25)
[2020-02-25] MEDS: LACTULOSE SYRUP 20 GM/30 ML UDC PO SCH (09:25)
[2020-02-25] MEDS: MUPIROCIN 2% OINT 22 GM TUBE EXT SCH (09:26)
--- NOTE | 2020-02-25 09:44 | Urology Progress Note ---
Date of Service February 25, 2020 Assessment & Plan (1) Hydronephrosis with obstructing calculus: Severely obstructed kidney with pyelitis and blood in obstructed kidney s/p Stent with abd discomfort when voiding. Typical after stent. Recommend outpatient treatment after sent home. Needs approx 1-2 weeks to allow adequate time to decompress and then liekly ureteroscopy as bowels will make Lithotripsy difficult. Blood thinner will need held for few days prior to Ureteroscopy. Continue supportive care. Will need to follow with GI due to severe bowel issue requiring excessive agents to have bowel movements. Patient is very frustrated over her course especially due to continued pain with stent. Did explain that this is not uncommon and occasionally people do have more severe episodes with the stent. Discussed different options for management however limited due to patient's large prostate size and limited efficacy for majority medications. Discussed different options and concerns. At this point patient is hoping that he will be able to be discharged somewhat soon. From urology's standpoint patient can be discharged home with supportive care and medications for control including tamsulosin. Will attempt to try to schedule patient for treatment as soon as possible to mitigate some pain Spoke with patient's for approximately 20 minutes about the issues as well. Subjective Patient on left ureteral stent post stone surgery. He was complaining of some flank pain when he urinates or has a bowel movement. He said otherwise the stent is tolerable. I did explain to him that when he urinates he forces urine back up the stent which then distends the collecting system causing some pain and this is a normal occurrence. He should continue with his pain medication as needed and Flomax Discussed expectations. Severely impacted stone with severe pyelitis/debris/blood in obstructed kidney. Will have intermittent discomfort. Bowels should be normalized at this point. Need to address with GI if continues to have issues. Review of Systems Review of Systems: All systems reviewed & are unremarkable except as noted in HPI & below Results & Data Vital Signs (Past 12 Hours) Vital Signs Temp Pulse Resp BP BP Pulse Ox 02/25/20 03:19 37.1 C 91 H 18 146/69 H 98 02/24/20 23:43 36.6 C 63 20 158/67 H 97 PG Care Time/CCT Total # of Minutes Spent Total Time Spent with Patient: Total time spent is greater than 50% in coordination of care (as documented) at patient's floor/unit and/or counseling patient: Coding Level of Care Code 94575 Subseq Hosp Care Lvl 3 Diagnoses Hydronephrosis with obstructing calculus N13.2
[2020-02-25] MEDS: DOCUSATE SODIUM/SENNA 50/8.6MG TAB PO SCH (09:54)
--- NOTE | 2020-02-25 09:59 | Discharge Summary ---
Date of Service February 25, 2020 Admission HPI Per Admitting Provider Patient is a 79 yo male with history of paroxysmal Afib, CAD, and bipolar disorder who presented to the ED with pain and obstructing renal stone. The patient started to have pain in the left flank/left lower abdomen last Friday. The patient presented to the ED 4 days ago with pain and was noted to have a 5 mm renal stone in the distal left ureter. He was sent home with Flomax and analgesics. He presented again this morning with multiple days of constipation and continued pain. He was given a bowel regimen and sent home this morning. He was however told to come back if his pain did not improve, which it didn't. He returned to the ED this evening with continued severe pain in both the LLQ and lower abdomen. He feels bloated. He still has not moved his bowels. He usually has a BM every day. He is urinating well. No dark or bloody urine. No dysuria. He is trying to drink lots of fluid at home. He has no history of renal stones. His pain when he got here was 7-8/10. Now it is about 3/10 after Fentanyl in the ED. Repeat CT of the abdomen/pelvis showed left distal ureteral stone without much change in placement from prior scan. He was noted to now have some left sided hydronephrosis though as well and XIOMY with creatinine bumped from 0.9 baseline to 1.9 this morning. Labs this morning otherwise showed INR of 3.2 & WBC count of 11. Admission Exam Per Admitting Provider Constitutional: WD/WN, vitals as above Eyes: PERRL, conjunctivae normal, anicteric sclerae ENMT: external ear and nose normal, oropharynx normal Neck: trachea midline, no thyromegaly Respiratory: normal respiratory effort, lungs clear to auscultation Cardiovascular: Rate/Rhythm: regular rate; + abnormal rhythm Heart Sounds: no murmur Gastrointestinal (Abdomen): Inspection/Auscultation: normal bowel sounds Percussion/Palpation: + abdomen tender (LLQ and suprapubic) and abdomen soft; no guarding and abdomen not rigid Skin: no rashes, warm and dry Neurologic: PERRL, EOMI, accommodation nl, no face palsy, no dysarthria Psychiatric: A+Ox3, euthymic affect Principal Diagnosis (1) Hydronephrosis with obstructing calculus: (2) Calculus of distal left ureter: (3) Flank Pain: (4) XIOMY (acute kidney injury): (5) Abdominal pain: (6) Constipation: (7) HTN (hypertension): (8) History of ME (myocardial infarction): (9) CAD (coronary artery disease): (10) Paroxysmal A-fib: Discharge Exam See below Discharge Data Allergies Allergy/AdvReac Type Severity Reaction Status Date / Time No Known Allergies Allergy Unverified 02/18/20 01:29 Consultations 02/18/20 18:32 ED Decision to Admit Stat 02/18/20 19:50 Consult Case Management - Discharge Planning Routine Consult Urology Routine 02/20/20 10:11 Consult Gastroenterology Routine Procedures Performed Operation Date: 02/20/20 14:00 Actual Procedures p Left Ureteral Stent placement placement (Left) - Fausto Alegre DO s Cystoscopy, Extraction of bladder stone, Left Retrograde Pylogram, Aspiration and (Left) - Fausto Alegre DO Ordered Studies 02/18/20 15:56 CT abd pelvis wo con Stat 02/20/20 14:00 FL retrograde includes kub Routine Current Diagnoses Essential (primary) hypertension (02/18/20) Atherosclerotic heart disease of [place] coronary artery without angina pectoris (02/18/20) Old myocardial infarction (02/18/20) Paroxysmal atrial fibrillation (02/18/20) Constipation, unspecified (02/18/20) Hydronephrosis with renal and ureteral calculous obstruction (02/18/20) Acute kidney failure, unspecified (02/18/20) Calculus of ureter (02/18/20) Generalized abdominal pain (02/18/20) Unspecified abdominal pain (02/18/20) Encounter for prophylactic measures, unspecified (02/18/20) Allergies No Known Allergies Allergy (Unverified 02/18/20 01:29) Height/Weight/Isolation Height 5 ft 5 in Weight 64.1 kg Chemistry 02/24/20 02/25/20 06:08 05:33 Sodium 140 141 Potassium 3.5 3.4 L Chloride 107 110 H Carbon Dioxide 25 25 Anion Gap 8.0 7.0 BUN 20 H 20 H Creatinine 0.98 1.00 Glucose 90 94 Hospital Course (1) Hydronephrosis with obstructing calculus: (2) Calculus of distal left ureter: (3) Flank Pain: (4) XIOMY (acute kidney injury): (5) Abdominal pain: Per DEJAH Ordonez's notes: Patient presenting with left sided flank pain and LLQ pain. Noted to have 5 mm obstructing stone of the left distal ureter that has been present for at least 4 days. He now also has left sided ureterohydronephrosis and XIOMY. Creatinine bumped from 0.9 at baseline to 1.9 today. Likely from obstructive uropathy. s/p L ureter stent placement Tellez cath in place, DC today Cr normalized continue pain control, Flomax DC today and f/u in office with (6) Constipation: (+) BMs after Lactulose continue for now GI on case (7) HTN (hypertension): elevated likely secondary to pain Continue home medications including amlodipine and metoprolol. Hydralazine 10 mg PRN systolic BP >160 Resume lisinopril (8) History of ME (myocardial infarction): (9) CAD (coronary artery disease): (10) Paroxysmal A-fib: HR currently controlled. No chest pain. Monitor on Med/Surg with tele. Continue metoprolol. Resume ASA, Coumadin on DC, Hold 5-7 days prior to visit (11) DVT prophylaxis: DC home today, Direct admit if he can tolerate it at home, [facility], Reassured by that he will be in pain for a few days, Abx on DC ROS-No Headache, No Visual Changes, No Nausea, No Vomiting, No Fever, No Chills, No Neck Pain or Stiffness, No Chest Pain, No Palpitations, No SOB, No RIOS, No Cough, No Sputum, No Wheezing, No Abdominal Pain, No Diarrhea, No Hematemesis, No Hemoptysis, No Unexpected Weight Loss, No Flank pain, No Melena, No Hematochezia, No Frequency, No Urgency, No Burning, No Hematuria, No Rashes, No Diaphoresis. Appetite is Normal, Still c Pain on urination and when on toilet Physical Exam Gen-AAO x 3, NAD, Afebrile Head-NCAT, EOMI, PERRLA, Anicteric Sclera, No Posterior Pharyngeal Erythema Neck-Supple, No JVD, No Thyromegaly, No Masses, No LAD, No Bruits Lungs-Clear to Auscultation Bilaterally, No Rales, No Rhonchi, No Wheezing, No Crepitus Chest-No S4, +S1, +S2, No S3, No Murmurs, No Rubs, No Gallops, No Ectopy Abdomen-Soft, Bowel Sounds Present, Non Tender, Non Distended, No Hepatomegaly, No Splenomegaly, No Palpable Masses, No Rebound, No Rigidity, No Guarding Musculoskeletal-Full Range of Motion Bilaterally, No CVAT Extremities-No Cyanosis, No Clubbing, No Edema Nuero-Cranial Nerves II-XII grossly intact, Motor WNL, DTRs WNL, Strength WNL, Non Focal Psych-Normal Mood Total Time Total Time Spent Total Time Spent (In Minutes): 45 mins Total Time Includes: Examination of the Patient, Discharge Planning, Medication Reconciliation and Communication With Other Providers Discharge Plan Discharge Items Patient Disposition: Home - Home Health Services Reason For Visit: URETEROLITHIASIS,ACUTE RENAL FAILURE Discharge Diagnosis: (1) Hydronephrosis with obstructing calculus: (2) Calculus of distal left ureter: (3) Flank Pain: (4) XIOMY (acute kidney injury): (5) Abdominal pain: (6) Constipation: (7) HTN (hypertension): (8) History of ME (myocardial infarction): (9) CAD (coronary artery disease): (10) Paroxysmal A-fib: Condition on Discharge: Fair Health Concerns: Pain Control Activity: As commented below Activity Comment: As tolerated Lifting: None Bathing: No limitations Exercise/Sports: None Driving/Machine Use: Resume after Stent out Weightbearing: Full weightbearing Non-emergency contact: Primary Care Provider and Urologist Call non-emergency contact if: you have any medication questions, your symptoms worsen and your pain is not controlled Follow-up/Referrals: Fausto Alegre DO [Physician] - (2 weeks) Luis Espinoza DO [Primary Care Provider] - 02/28/20 11:00 am (02/28/2020 11:00 AM Provider Adams Alcantar III, MD Department [facility] ) Diet: Heart Healthy Addtl Attending Provider Instructions: Call me for a direct admit to hospital if you can't take care of yourself at home Pending Studies at Discharge: No Stand-Alone Forms: My [employer], Smoking Cessation Medications and DC Order Prescriptions: New acetaminophen [Tylenol Extra Strength] 500 mg tablet 500 mg PO Q4H Qty: 90 RF: 0 lactulose 20 gram/30 mL Solution 30 ml PO TID Qty: 300 RF: 0 sennosides-docusate sodium [Senokot-S] 8.6-50 mg Tablet 2 tab PO QAM Qty: 60 RF: 0 magnesium hydroxide [Milk of Magnesia] 400 mg/5 mL Suspension 30 ml PO Q6H PRN (Reason: constipation) Qty: 300 RF: 0 meloxicam 7.5 mg tablet 7.5 mg PO DAILY Qty: 30 RF: 0 Continued latanoprost 0.005 % drops 1 drp OPB HS RF: 0 lisinopril 20 mg tablet 20 mg PO DAILYBD RF: 0 warfarin 2.5 mg tablet 2.5 mg PO 4XWK RF: 0 warfarin 2.5 mg tablet 3.5 mg PO 3XWK RF: 0 amlodipine 10 mg tablet 10 mg PO DAILYBD RF: 0 rosuvastatin 40 mg tablet 40 mg PO DAILYBD RF: 0 metoprolol tartrate 25 mg tablet 25 mg PO DAILYBD RF: 0 carbamazepine 100 mg capsule, ER multiphase 12 hr 200 mg PO PM RF: 0 tamsulosin [Flomax] 0.4 mg capsule 0.4 mg PO HS Qty: 7 RF: 0 meclizine 12.5 mg Tablet 12.5 mg PO DAILY PRN (Reason: Dizziness) RF: 0 mupirocin 2 % Ointment 1 applic TOPICAL BID RF: 0 fluorouracil 5 % cream 1 applic TOPICAL BID PRN (Reason: .SKIN CANCER) RF: 0 tramadol 50 mg tablet 50 mg PO Q8H PRN (Reason: pain) Qty: 30 RF: 0 aspirin 81 mg Tablet,Delayed Release (Dr/Ec) 81 mg PO QAM Qty: 0 RF: 0 Discharge Orders: Discharge Order (Routine); Ordered 02/25/20 Ordered By: Nguyễn Sewell Admission Data Admit Date/Time: 02/18/20 18:13 Attending Provider: Nguyễn Sewell Admit Provider: Dav Jimenes Primary Care Provider: Luis Espinoza Other Providers: Dav Jimenes ; Brandon Cooney ; Fausto Alegre
== END 2020-02-25 12:02 | disposition home health service (06) | DRG 661 ==
LOC: ED 15:16 → 2N 18:13 → SUATTDRO 18:13 → 2N 19:27

== ENCOUNTER 2022-10-31 11:30 | Observation (INO) ==
[2022-10-31 12:33] LABS: Albumin Globulin Ratio 1.7 (0.9-2); Albumin Level 4.8 gm/dl (3.4-5.0); BUN Creatinine Ratio 18.4 (10-20); Bilirubin,Total 0.7 mg/dl (0.2-1.0); Calcium 9.5 mg/dl (8.5-10.1); Creatinine Clr Calc Pharmacy 51.4 ml/min; Est GFR (African American) 83.5 ml/min; Globulin 2.9 gm/dl (2.5-4.0); Potassium 4.4 mmol/L (3.5-5.1); Total Protein 7.7 gm/dl (6.0-8.3)
[2022-10-31 12:38] LABS: Troponin I High Sensitivity 7.4 pg/ml (0-20)
--- NOTE | 2022-10-31 12:39 | Emergency Department Note ---
Impression & Plan Atypical chest pain, Hypertensive urgency, A-fib, Subtherapeutic anticoagulation ED Provider Note NAME: JACQUELYN LAY AGE: 82 SEX: M : 1940 ARRIVES VIA: Walk-In INFORMANT: Patient, ED PROVIDER(S): Deuce Do MD CHIEF COMPLAINT: Chest pain MEDICAL DECISION MAKING: Patient presents after he woke with chest pain this morning. Blood work was obtained IV was established and the patient did have an EKG completed along with a troponin chest x-ray. COVID swab also obtained. The patient has a normal white count H&H and platelet count. INR subtherapeutic at 1.5 kidney function is unremarkable with normal electrolytes. BSG 103 but nonfasting not DKA. Initial troponin was 7.4. COVID-negative. I did discuss that the patient was higher risk as the patient did have an episode of chest pain but is not currently present. Initial troponin negative. I did speak the on-call hospitalist service in light of this in addition to the patient's hypertension. I did speak with MARICARMEN Wilde and the patient was admitted by Dr. Gonzáles. Chest x-ray shows cardiomegaly but no other findings at this time. Prior /Outside records reviewed: I did review the patient's most recent operative report from Dr. Ty. The patient did have cataract surgery. Differential diagnosis: Cardiac ischemia, aortic dissection, pulmonary embolism, pneumothorax, pneumonia, pericarditis, myocarditis, esophageal rupture, GERD, cholecystitis, pancreatitis, musculoskeletal, as well as other pathologies. Diagnostics, as interpreted by me: ECG: A-fib, ventricular rate of 69, normal axis no ST elevations or T WI. Cardiac monitoring: An order was placed for continuous cardiac monitoring. The monitor shows a rate of 72 with irregularly irregular rhythm. Patient was placed on pulse oximetry Medical decision rules: none Imaging studies: See below HPI: Patient presents due to concern for chest pain that he states did not awaken from sleep but he noticed it immediately upon awaking. The patient states that it was centralized in his energy able to give it a quality but states it is 5 out of 10. The patient is a prior bypass and stents. The patient is unsure as whether or not this feels similar to his prior MIs. Patient denies any falls no cough or fever no leg swelling or calf pain. The patient does follow with cardiology once a year at [facility]. Patient denies any nausea vomiting or diaphoresis. The patient did state that once he sat up he did feel better. Patient has been taking Coumadin. Patient does have a known history of A-fib PAST MEDICAL HISTORY: See Below PAST SURGICAL HISTORY: See Below SOCIAL HISTORY: See Below HOME MEDICATIONS: See Below ALLERGIES: See Below VITALS: See Below PHYSICAL EXAMINATION: GENERAL: NAD, wearing a mask, non-toxic. EYE EXAM: Normal conjunctiva. PERRL, no anisocoria and EOM's grossly intact w/o pain. NECK: Supple, no nuchal rigidity, no adenopathy, non-tender. No signs of meningismus. FROM of the neck with good chin to chest and neck extension. No stridor. LUNGS: Clear to auscultation. Normal chest wall mechanics. HEART: Irregularly irregular, no MRG. ABDOMEN: Abdomen soft, non-tender, normo-active bowel sounds, no masses, no rebound or guarding. BACK: No CVA TTP. SKIN: No rashes and no bruising. UPPER EXTREMITIES: Upper extremities are grossly normal. LOWER EXTREMITIES: Grossly normal, no edema. Negative Homans' sign bilaterally. NEURO EXAM: A&O x3, cranial nerves II-XII grossly intact, normal speech, moves all 4 extremities. Past Med/Surg History Medical History Bipolar 1 disorder Bladder outlet obstruction CAD (coronary artery disease) s/p CABG- 3 vessel (1990), PVI + stent (2011) Depression Glaucoma Follows with eye doctor History of COVID-19 05/2022, home test, mild symptoms and cough>lasted 3 days>resolved. History of [place] (myocardial infarction) 1990, 2011x3 (had stent placed twice) History of nephrolithiasis HLD (hyperlipidemia) HTN (hypertension) Inguinal hernia of left side without obstruction or gangrene On anticoagulant therapy Permanent atrial fibrillation Skin cancer Follows derm Vitamin D deficiency Surgical History History of cardiac cath PVI + stent (2011)-"had 3 minor heart attacks" History of cardioversion ~2011, [facility]; attempted, not successful "have been in a-fib ever since"; f/u dr galvin, [facility] History of colonoscopy History of coronary artery bypass graft 1990; follows with [facility] History of cystoscopy History of heart artery stent x 2 (both placed in 2011) History of transurethral resection of prostate 06/14/21 [facility]: MAC. No issues per anesthesia postop progress note. History of vasectomy Hx of right cataract extraction S/P appendectomy 1960 S/P left inguinal hernia repair (10/18/21) Open Left Inguinal Hernia Repair with Mesh and Excision of Cord Lipoma(Left) - [facility], 10/18/2021 Family History Mother Myocardial infarction Father Cancer Multiple Myeloma Social History Smoking Status: Former smoker Tobacco Type: Cigarettes packs per day: 1; Second Hand Exposure: No; Hx Alcohol Use: Yes Alcohol type: hard liquor Alcohol Intake Frequency Comment: 3 oz a week Hx Substance Use: No Preferred Language: Kyrgyz Communication Ability: Effective Visual Impairment: No Limitations Tube Bender Required: No Beliefs That Will Affect Care: None marital status: Current Living Situation: Spouse current occupational status: retired How many Children do You have: 2 Feels Safe at Home: Yes during the past year weight has: remained stable Assistive Devices: Glasses Allergies Allergies Allergy/AdvReac Type Severity Reaction Status Date / Time pollen extracts Allergy Mild Sneezing Verified 10/01/22 11:00 Home Meds Home Medications Medication Instructions Recorded Confirmed amlodipine 10 mg tablet 10 mg PO QDD 02/14/20 10/31/22 latanoprost 0.005 % eye drops 1 drp OPB HS 02/14/20 10/31/22 lisinopril 20 mg tablet 20 mg PO QAM 02/14/20 10/31/22 metoprolol tartrate 25 mg tablet 25 mg PO QDD 02/14/20 10/31/22 rosuvastatin 40 mg tablet 40 mg PO QPM 02/14/20 10/31/22 meclizine 12.5 mg tablet 12.5 mg PO DAILY PRN Dizziness 02/18/20 10/31/22 sennosides 8.6 mg-docusate sodium 2 tab PO QAM PRN Constipation 05/29/21 10/31/22 50 mg tablet (Senokot-S) cholecalciferol (vitamin D3) 50 50 mcg PO QPM 08/07/21 10/31/22 mcg (2,000 unit) capsule potassium citrate 15 mEq (1,620 15 meq PO QAM 08/29/22 10/31/22 mg) tablet,extended release timolol maleate 0.5 % eye drops 1 drp ophthalmic (eye) QAM 08/29/22 10/31/22 warfarin 4 mg tablet 2 mg PO SUTUTHSA 08/29/22 10/31/22 carbamazepine 300 mg 300 mg PO QDD 10/31/22 10/31/22 capsule,extended release [id number] warfarin 4 mg tablet 4 mg PO [id number] 10/31/22 10/31/22 Previous Rx's Medication Instructions Recorded aspirin 81 mg tablet,delayed 81 mg PO QAM #0 tabs 02/25/20 release Results & Data (ED) Vital Signs Vital Signs - 24 hr 10/31/22 11:32 10/31/22 11:45 10/31/22 13:21 Temperature 36.2 C L Temperature Source Temporal Artery Scan Pulse Rate 103 H 67 Pulse Rate [Right Radial] 70 Pulse Rate from SpO2 Sensor Pulse Rhythm Regular Pulse Rhythm [Right Radial] Regular Pulse Strength Normal Pulse Strength [Right Radial] Normal Respiratory Rate 18 18 Respiratory Effort / Characteristics Non-Labored Spontaneous Non-Labored Spontaneous Respiratory Depth Normal Normal Respiratory Pattern Regular Regular Blood Pressure 216/101 H Blood Pressure [Right Arm] 182/93 H Blood Pressure Mean 139 Blood Pressure Mean [Right Arm] 122 Blood Pressure Position Sitting Blood Pressure Position [Right Arm] Lying Pulse Oximetry 96 98 Oxygen Delivery Method Room Air Room Air Sepsis Recent Fever Within 48 Hours No Sepsis New/Unexplained Change in Mental Status No Sepsis Action Taken by Nursing No Action Required 10/31/22 13:21 10/31/22 11:30 10/31/22 11:44 Temperature Temperature Source Pulse Rate 67 62 66 Pulse Rate [Right Radial] Pulse Rate from SpO2 Sensor 70 Pulse Rhythm Regular Pulse Rhythm [Right Radial] Pulse Strength Pulse Strength [Right Radial] Respiratory Rate 18 15 Respiratory Effort / Characteristics Respiratory Depth Respiratory Pattern Blood Pressure Blood Pressure [Right Arm] Blood Pressure Mean Blood Pressure Mean [Right Arm] Blood Pressure Position Blood Pressure Position [Right Arm] Pulse Oximetry 98 98 97 Oxygen Delivery Method Room Air Room Air Sepsis Recent Fever Within 48 Hours Sepsis New/Unexplained Change in Mental Status Sepsis Action Taken by Nursing 10/31/22 11:50 10/31/22 12:00 10/31/22 12:01 Temperature Temperature Source Pulse Rate 84 71 71 Pulse Rate [Right Radial] Pulse Rate from SpO2 Sensor 83 69 Pulse Rhythm Pulse Rhythm [Right Radial] Pulse Strength Pulse Strength [Right Radial] Respiratory Rate 19 19 Respiratory Effort / Characteristics Respiratory Depth Respiratory Pattern Blood Pressure Blood Pressure [Right Arm] Blood Pressure Mean Blood Pressure Mean [Right Arm] Blood Pressure Position Blood Pressure Position [Right Arm] Pulse Oximetry 97 96 Oxygen Delivery Method Sepsis Recent Fever Within 48 Hours Sepsis New/Unexplained Change in Mental Status Sepsis Action Taken by Nursing 10/31/22 12:01 10/31/22 12:10 10/31/22 12:20 Temperature Temperature Source Pulse Rate 66 66 78 Pulse Rate [Right Radial] Pulse Rate from SpO2 Sensor 65 65 73 Pulse Rhythm Pulse Rhythm [Right Radial] Pulse Strength Pulse Strength [Right Radial] Respiratory Rate 18 18 16 Respiratory Effort / Characteristics Respiratory Depth Respiratory Pattern Blood Pressure 154/105 H Blood Pressure [Right Arm] Blood Pressure Mean 121 Blood Pressure Mean [Right Arm] Blood Pressure Position Blood Pressure Position [Right Arm] Pulse Oximetry 95 94 Oxygen Delivery Method Sepsis Recent Fever Within 48 Hours Sepsis New/Unexplained Change in Mental Status Sepsis Action Taken by Nursing 10/31/22 12:30 10/31/22 12:30 10/31/22 12:40 Temperature Temperature Source Pulse Rate 63 63 61 Pulse Rate [Right Radial] Pulse Rate from SpO2 Sensor 63 63 Pulse Rhythm Pulse Rhythm [Right Radial] Pulse Strength Pulse Strength [Right Radial] Respiratory Rate 17 Respiratory Effort / Characteristics Respiratory Depth Respiratory Pattern Blood Pressure 158/93 H Blood Pressure [Right Arm] Blood Pressure Mean 114 Blood Pressure Mean [Right Arm] Blood Pressure Position Blood Pressure Position [Right Arm] Pulse Oximetry 98 95 94 Oxygen Delivery Method Sepsis Recent Fever Within 48 Hours Sepsis New/Unexplained Change in Mental Status Sepsis Action Taken by Nursing 10/31/22 13:20 10/31/22 13:30 10/31/22 15:41 Temperature Temperature Source Pulse Rate 75 67 Pulse Rate [Right Radial] 77 Pulse Rate from SpO2 Sensor 75 65 Pulse Rhythm Pulse Rhythm [Right Radial] Regular Pulse Strength Pulse Strength [Right Radial] Normal Respiratory Rate 17 18 18 Respiratory Effort / Characteristics Non-Labored Spontaneous Respiratory Depth Normal Respiratory Pattern Blood Pressure 168/90 H Blood Pressure [Right Arm] 196/100 H Blood Pressure Mean 116 Blood Pressure Mean [Right Arm] 132 Blood Pressure Position Blood Pressure Position [Right Arm] Sitting Pulse Oximetry 96 96 97 Oxygen Delivery Method Room Air Sepsis Recent Fever Within 48 Hours Sepsis New/Unexplained Change in Mental Status Sepsis Action Taken by Intermediate Medications Current Medication List: was personally reviewed by me Laboratory Data Attestation: I reviewed the patient's lab results. 10/31/22 12:00 10/31/22 12:00 Lab Results 10/31/22 10/31/22 10/31/22 Range/Units 12:00 12:00 12:00 WBC 10.61 (4.8-10.8) K/ul RBC 5.68 (4.70-6.10) M/uL Hgb 17.5 (14.0-18.0) g/dl Hct 51.2 (42.0-52.0) % MCV 90.1 (80.0-100.0) fL MCH 30.8 (25.0-34.0) pg MCHC 34.2 (32.0-36.0) g/dL RDW Std Deviation 44.4 (36.4-46.3) fL RDW Coeff of Bonnie 13.4 (11.5-14.5) % Plt Count 357 (130-400) K/uL MPV 10.1 (9.4-12.4) fL Immature Gran % (Auto) 0.6 % Neut % (Auto) 68.4 % Lymph % (Auto) 18.6 % [place] % (Auto) 7.4 % Eos % (Auto) 3.6 % Baso % (Auto) 1.4 % Neut # (Auto) 7.27 H (1.40-6.50) K/uL Lymph # (Auto) 1.97 (1.2-3.4) K/uL [place] # (Auto) 0.78 H (0.11-0.59) K/uL Eos # (Auto) 0.38 (0-0.50) K/uL Baso # (Auto) 0.15 (0-0.2) K/uL Immature Gran # (Auto) 0.06 (0.01-0.20) K/uL PT 15.6 H (9.0-12.0) Seconds INR 1.5 H (0.9-1.1) APTT 33.4 H (21.0-31.0) Seconds PTT Ratio 1.2 Sodium 140 (136-145) mmol/L Potassium 4.4 (3.5-5.1) mmol/L Chloride 105 (98-107) mmol/L Carbon Dioxide 30 (21-32) mmol/L Anion Gap 5 (3-11) BUN 18 (6-23) mg/dl Creatinine 0.98 (0.6-1.4) mg/dl Est Cr Clr Drug Dosing 51.4 ml/min Est GFR ( Amer) 83.5 ml/min Est GFR (Non-Af Amer) 72.0 ml/min BUN/Creatinine Ratio 18.4 (10-20) Glucose 103 H (70-99(Fasting)) mg/dl Calcium 9.5 (8.5-10.1) mg/dl Total Bilirubin 0.7 (0.2-1.0) mg/dl AST 29 (13-39) U/L ALT 29 (7-52) U/L Alkaline Phosphatase 88 (34-104) U/L Troponin I High Sens 7.4 (0-20) pg/ml Total Protein 7.7 (6.0-8.3) gm/dl Albumin 4.8 (3.4-5.0) gm/dl Globulin 2.9 (2.5-4.0) gm/dl Albumin/Globulin Ratio 1.7 (0.9-2) Lipase 29 (11-82) U/L SARS-CoV-2, RNA, NAAT (NEGATIVE) 10/31/22 10/31/22 Range/Units 13:18 14:46 WBC (4.8-10.8) K/ul RBC (4.70-6.10) M/uL Hgb (14.0-18.0) g/dl Hct (42.0-52.0) % MCV (80.0-100.0) fL MCH (25.0-34.0) pg MCHC (32.0-36.0) g/dL RDW Std Deviation (36.4-46.3) fL RDW Coeff of Bonnie (11.5-14.5) % Plt Count (130-400) K/uL MPV (9.4-12.4) fL Immature Gran % (Auto) % Neut % (Auto) % Lymph % (Auto) % Woodford % (Auto) % Eos % (Auto) % Baso % (Auto) % Neut # (Auto) (1.40-6.50) K/uL Lymph # (Auto) (1.2-3.4) K/uL [place]ford # (Auto) (0.11-0.59) K/uL Eos # (Auto) (0-0.50) K/uL Baso # (Auto) (0-0.2) K/uL Immature Gran # (Auto) (0.01-0.20) K/uL PT (9.0-12.0) Seconds INR (0.9-1.1) APTT (21.0-31.0) Seconds PTT Ratio Sodium (136-145) mmol/L Potassium (3.5-5.1) mmol/L Chloride (98-107) mmol/L Carbon Dioxide (21-32) mmol/L Anion Gap (3-11) BUN (6-23) mg/dl Creatinine (0.6-1.4) mg/dl Est Cr Clr Drug Dosing ml/min Est GFR ( Amer) ml/min Est GFR (Non-Af Amer) ml/min BUN/Creatinine Ratio (10-20) Glucose (70-99(Fasting)) mg/dl Calcium (8.5-10.1) mg/dl Total Bilirubin (0.2-1.0) mg/dl AST (13-39) U/L ALT (7-52) U/L Alkaline Phosphatase (34-104) U/L Troponin I High Sens 8.5 (0-20) pg/ml Total Protein (6.0-8.3) gm/dl Albumin (3.4-5.0) gm/dl Globulin (2.5-4.0) gm/dl Albumin/Globulin Ratio (0.9-2) Lipase (11-82) U/L SARS-CoV-2, RNA, NAAT NEGATIVE (NEGATIVE) Administered Medications Discontinued Medications Amlodipine Besylate (Amlodipine Besylate 5 Mg Tab) 10 mg PO NOW ONE Stop: 10/31/22 15:30 Last Admin: 10/31/22 15:42 Dose: 10 mg Documented By: YIN Metoprolol Tartrate (Metoprolol Tartrate 25 Mg Tab) 25 mg PO ONE ONE Stop: 10/31/22 15:31 Last Admin: 10/31/22 15:42 Dose: 25 mg Documented By: CAA Imaging Data Radiologist's Impression: Chest X-Ray 10/31/22 12:03 XR chest 1V portable CLINICAL HISTORY: Chest pain, nonspecific COMPARISON STUDY: Chest radiograph 05/30/2021. FINDINGS: There are median sternotomy wires and mediastinal surgical clips. No pneumothorax or pleural effusion is present. Cardiomegaly is unchanged. No evidence for overt pulmonary edema. IMPRESSION: No acute cardiopulmonary findings. Cardiomegaly. ACT 112: Negative or not required by law. Electronically signed by: Roger Phillips M.D. 10/31/2022 12:37 PM Discharge Plan Visit Data Chief Complaint: Chest Pain Stated Complaint: CHEST PAIN ED Provider: Deuce Do Discharge Problem: Atypical chest pain, Hypertensive urgency, A-fib, Subtherapeutic anticoagulation Patient Disposition: Admitted As Inpatient Forms Stand Alone Forms: [facility] Prescriptions Prescriptions: No Action cholecalciferol (vitamin D3) 50 mcg (2,000 unit) capsule 50 mcg PO QPM Rx Instructions: with dinner latanoprost 0.005 % drops 1 drp OPB HS lisinopril 20 mg tablet 20 mg PO QAM amlodipine 10 mg tablet 10 mg PO QDD Rx Instructions: with dinner rosuvastatin 40 mg tablet 40 mg PO QPM Rx Instructions: with dinner metoprolol tartrate 25 mg tablet 25 mg PO QDD Rx Instructions: with dinner meclizine 12.5 mg Tablet 12.5 mg PO DAILY PRN (Reason: Dizziness) aspirin 81 mg Tablet,Delayed Release (Dr/Ec) 81 mg PO QAM Qty: 0 0RF Rx Instructions: Hold 1 sennosides-docusate sodium [Senokot-S] 8.6-50 mg tablet 2 tab PO QAM PRN (Reason: Constipation) timolol maleate 0.5 % Drops 1 drp OPHTHALMIC (EYE) QAM Rx Instructions: left eye potassium citrate 15 mEq tablet extended release 15 meq PO QAM warfarin 4 mg Tablet 2 mg PO SUTUTHSA warfarin 4 mg Tablet 4 mg PO MOWEFR carbamazepine 300 mg capsule, ER multiphase 12 hr 300 mg PO QDD Referrals Referrals: Luis Espinoza, DO [Primary Care Provider] -
[2022-10-31 12:44] LABS: Basophils # (auto) 0.15 K/uL (0-0.2); Basophils % (auto) 1.4 %; Eosinophils # (auto) 0.38 K/uL (0-0.50); Eosinophils % (auto) 3.6 %; Hematocrit (blood only) 51.2 % (42.0-52.0); Hemoglobin 17.5 g/dl (14.0-18.0); Immature Granulocytes # (auto) 0.06 K/uL (0.01-0.20); Immature Granulocytes % (auto) 0.6 %; Lymphocytes # (auto) 1.97 K/uL (1.2-3.4); Lymphocytes % (auto) 18.6 %; Mean Corpuscular Hemoglobin 30.8 pg (25.0-34.0); Mean Corpuscular Hgb Conc 34.2 g/dL (32.0-36.0); Mean Corpuscular Volume 90.1 fL (80.0-100.0); Mean Platelet Volume 10.1 fL (9.4-12.4); Monocytes # (auto) 0.78 K/uL (0.11-0.59); Monocytes % (auto) 7.4 %; Neutrophils # (auto) 7.27 K/uL (1.40-6.50); Neutrophils % (auto) 68.4 %; Platelet Count 357 K/uL (130-400); RDW Coefficient of Variation 13.4 % (11.5-14.5); RDW Standard Deviation 44.4 fL (36.4-46.3); Red Blood Count 5.68 M/uL (4.70-6.10); White Blood Count 10.61 K/ul (4.8-10.8)
[2022-10-31 12:51] LABS: INR 1.5 (0.9-1.1); Partial Thromboplastin Ratio 1.2; Partial Thromboplastin Time 33.4 Seconds (21.0-31.0); Prothrombin Time 15.6 Seconds (9.0-12.0)
[2022-10-31] MEDS ORDERED: amLODIPine BESYLATE 5 MG TAB PO ONE (15:29)
[2022-10-31] MEDS ORDERED: METOPROLOL TARTRATE 25 MG TAB PO ONE (15:30)
--- NOTE | 2022-10-31 16:06 | History & Physical Report ---
Date of Service October 31, 2022 Assessment & Plan (1) Hypertensive urgency: (2) Atypical chest pain: (3) CAD (coronary artery disease): Plan: Admit to telemetry Patient presenting from home with atypical chest pain. In the ED, found to have significant elevated blood pressure of 216/101, similar to home reading. Patient has had 2 cataract surgeries this year and BPs were noted to be significant elevated during those encounters as well. HS troponin negative x2, EKG without acute ST changes Patient symptoms of chest pain and dizziness likely secondary to hypertensive urgency Continue to trend troponin, check resting echo Patient typically takes lisinopril 20 mg in the morning which he did take this morning prior to coming to the hospital however takes amlodipine 10 mg and metoprolol tartrate 25 mg at dinner. Will provide home doses of amlodipine and metoprolol now and monitor response. Patient may need to take his medications in the morning. If BP does not improve, consider increasing lisinopril to 40 mg. Also consider changing metoprolol tartrate to metoprolol succinate. (4) Permanent atrial fibrillation: Plan: Rate controlled on metoprolol, anticoagulated on Coumadin INR 1.5 --will give Coumadin 4 mg tonight (typical dosing schedule is 4 mg MWF, 2 mg SuTuThSa) Follows with [facility] clinic (5) DVT prophylaxis: Plan: SCDs when INR < 2.0 I spent a total of 60 minutes coordinating, documenting, and providing care for this patient excluding time spent in the performance of separately billed services. This included personally reviewing all current laboratories and imaging studies, medication reconciliation, outpatient chart review, and discussion with specialists. History of Present Illness Chief Complaint: Chest pain Primary Care Provider: Luis Espinoza DO 82-year-old male with PMH CAD (hx KS in 1990 s/p CABG, hx KS in 2011 with PCI x 3 stents), HTN, permanent atrial fibrillation anticoagulated on Coumadin, nephrolithiasis, and other problems listed below who presents to the ED for evaluation of chest pain. Patient reports that he decided to sleep on the couch last evening which is unusual for him. He states that he had to sleep lying flat without his usual pillow. He woke up shortly before 8 AM and noted a right-sided chest pain. Patient reports pain was worse with each inspiration. He states that once he sat up the pain completely resolved. 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 This also quickly resolved. Patient called his PCPs office and was advised to come to the ED for further evaluation. He checked his BP at home and reported to be 211/115. Patient reports he otherwise has been feeling well recently. He denies any other recent illnesses, fevers, chills. No abdominal pain, nausea, vomiting, diarrhea. Denies urinary symptoms. In the ED, patient's BP remained elevated at 216/101. There was some mild improvement during ED stay however when checked manually during my exam BP was 218/98. HS trop negative x2, EKG without acute ST changes. Labs unremarkable. Allergies Allergy/AdvReac Type Severity Reaction Status Date / Time pollen extracts Allergy Mild Sneezing Verified 10/01/22 11:00 Home Medications Medication Instructions Recorded Confirmed Type amlodipine 10 mg tablet 10 mg PO QDD 02/14/20 10/31/22 History latanoprost 0.005 % eye drops 1 drp OPB HS 02/14/20 10/31/22 History lisinopril 20 mg tablet 20 mg PO QAM 02/14/20 10/31/22 History metoprolol tartrate 25 mg tablet 25 mg PO QDD 02/14/20 10/31/22 History rosuvastatin 40 mg tablet 40 mg PO QPM 02/14/20 10/31/22 History meclizine 12.5 mg tablet 12.5 mg PO DAILY PRN Dizziness 02/18/20 10/31/22 History aspirin 81 mg tablet,delayed 81 mg PO QAM #0 tabs 02/25/20 10/31/22 Rx release sennosides 8.6 mg-docusate sodium 2 tab PO QAM PRN Constipation 05/29/21 10/31/22 History 50 mg tablet (Senokot-S) cholecalciferol (vitamin D3) 50 50 mcg PO QPM 08/07/21 10/31/22 History mcg (2,000 unit) capsule potassium citrate 15 mEq (1,620 15 meq PO QAM 08/29/22 10/31/22 History mg) tablet,extended release timolol maleate 0.5 % eye drops 1 drp ophthalmic (eye) QAM 08/29/22 10/31/22 History warfarin 4 mg tablet 2 mg PO SUTUTHSA 08/29/22 10/31/22 History carbamazepine 300 mg 300 mg PO QDD 10/31/22 10/31/22 History capsule,extended release [id number] warfarin 4 mg tablet 4 mg PO MOWEFR 10/31/22 10/31/22 History Past Med/Surg History Medical History Bipolar 1 disorder Bladder outlet obstruction CAD (coronary artery disease) s/p CABG- 3 vessel (1990), PVI + stent (2011) Depression Glaucoma Follows with eye doctor History of COVID-19 05/2022, home test, mild symptoms and cough>lasted 3 days>resolved. History of KS (myocardial infarction) 1990, 2012x3 (had stent placed twice) History of nephrolithiasis HLD (hyperlipidemia) HTN (hypertension) Inguinal hernia of left side without obstruction or gangrene On anticoagulant therapy Permanent atrial fibrillation Skin cancer Follows derm Vitamin D deficiency Surgical History History of cardiac cath PVI + stent (2011)-"had 3 minor heart attacks" History of cardioversion ~2011, [facility]; attempted, not successful "have been in a-fib ever since"; f/u dr galvin, [facility] History of colonoscopy History of coronary artery bypass graft 1990; follows with [facility] History of cystoscopy History of heart artery stent x 2 (both placed in 2011) History of transurethral resection of prostate 06/14/21 [facility]: MAC. No issues per anesthesia postop progress note. History of vasectomy Hx of right cataract extraction S/P appendectomy 1960 S/P left inguinal hernia repair (10/18/21) Open Left Inguinal Hernia Repair with Mesh and Excision of Cord Lipoma(Left) - Kartik Tristan DO 10/18/2021 Family History Mother Myocardial infarction Father Cancer Multiple Myeloma Social History Smoking Status: Never smoker Tobacco Type: Cigarettes packs per day: 1; Second Hand Exposure: No; Hx Alcohol Use: Yes Alcohol type: hard liquor Alcohol Intake Frequency Comment: 3 oz a week Hx Substance Use: No Preferred Language: Argentine Communication Ability: Effective Visual Impairment: No Limitations Mopper Required: No Beliefs That Will Affect Care: None marital status: Current Living Situation: Spouse current occupational status: retired How many Children do You have: 2 Other Information That Helps Us Care for You: No Feels Safe at Home: Yes Safety Concerns: Feels Safe At This Time during the past year weight has: remained stable Assistive Devices: None Review of Systems Review of Systems: ROS per HPI, all other systems reviewed and negative Physical Exam Physical Exam: please refer to Dr. Gonzáles's addendum for physical exam Results & Data Results & Data ([facility]) Vital Signs (Past 12 Hours) Vital Signs Temp Pulse Pulse Resp BP BP Pulse Ox 10/31/22 15:41 77 18 196/100 H 97 10/31/22 13:30 67 18 168/90 H 96 10/31/22 13:20 75 17 96 10/31/22 12:40 61 94 10/31/22 12:30 63 95 10/31/22 12:30 63 17 158/93 H 98 10/31/22 12:20 78 16 94 10/31/22 12:10 66 18 95 10/31/22 12:01 66 18 154/105 H 10/31/22 12:01 71 19 10/31/22 12:00 71 19 96 10/31/22 11:50 84 97 10/31/22 11:44 66 15 97 10/31/22 11:30 62 18 98 10/31/22 13:21 67 98 10/31/22 13:21 70 18 182/93 H 98 10/31/22 11:45 67 10/31/22 11:32 36.2 C L 103 H 18 216/101 H 96 O2 Del Method 10/31/22 15:41 Room Air 10/31/22 13:30 10/31/22 13:20 10/31/22 12:40 10/31/22 12:30 10/31/22 12:30 10/31/22 12:20 10/31/22 12:10 10/31/22 12:01 10/31/22 12:01 10/31/22 12:00 10/31/22 11:50 10/31/22 11:44 10/31/22 11:30 Room Air 10/31/22 13:21 Room Air 10/31/22 13:21 Room Air 10/31/22 11:45 10/31/22 11:32 Room Air Laboratory Results Short CBC 10/31/22 Range/Units 12:00 WBC 10.61 (4.8-10.8) K/ul Hgb 17.5 (14.0-18.0) g/dl Hct 51.2 (42.0-52.0) % Plt Count 357 (130-400) K/uL BMP 10/31/22 12:00 Sodium 140 Potassium 4.4 Chloride 105 Carbon Dioxide 30 BUN 18 Creatinine 0.98 Glucose 103 H Calcium 9.5 Liver Function 10/31/22 Range/Units 12:00 Total Bilirubin 0.7 (0.2-1.0) mg/dl AST 29 (13-39) U/L ALT 29 (7-52) U/L Alkaline Phosphatase 88 (34-104) U/L Albumin 4.8 (3.4-5.0) gm/dl Diagnostic Findings Chest X-Ray 10/31/22 12:03 XR chest 1V portable CLINICAL HISTORY: Chest pain, nonspecific COMPARISON STUDY: Chest radiograph 05/30/2021. FINDINGS: There are median sternotomy wires and mediastinal surgical clips. No pneumothorax or pleural effusion is present. Cardiomegaly is unchanged. No evidence for overt pulmonary edema. IMPRESSION: No acute cardiopulmonary findings. Cardiomegaly. ACT 112: Negative or not required by law. Electronically signed by: Roger Phillips M.D. 10/31/2022 12:37 PM Code Status & VTE Plan Code Status Patient is a full code as per my discussion with him. VTE Prophylaxis Plan VTE Prophylaxis will be ordered: Yes Supervising Physician Co-Signing Physician Notes Pt seen and examined by me, care coordinated w/ L. Sonia HERNADEZ, pls see her note above for further detail. Pt is an 82 yo M with CAD (hx KS in 1990 s/p CABG, hx KS in 2011 with PCI x 3 stents), HTN, permanent atrial fibrillation anticoagulated on Coumadin, nephrolithiasis, who presents w/chest pain and significantly elevated BP. He noted CP soon after waking up and pain was worse with inspiration. However once he sat up, the pain completely resolved. 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 This also quickly resolved. His BP at home was 211/115. Patient reports he otherwise has been feeling well recently. He denies any other recent illnesses, fevers, chills. No abdominal pain, nausea, vomiting, diarrhea. Denies urinary symptoms. In the ED, patient's BP remained elevated at 216/101. There was some mild improvement during ED stay however when checked manually, BP was 218/98. HS trop negative x2, EKG without acute ST changes. Labs unremarkable. Patient is alert oriented answering questions appropriately. Hesitant to stay in the hospital. Currently denies any chest pain or any discomfort, denies any headache. Lungs are clear to auscultation bilaterally. Heart sounds regular. Abdomen soft nontender nondistended. No lower extremity edema noted. Skin is warm dry well-perfused. Will monitor on telemetry, give patient his other home medications for blood pressure control. Will obtain echocardiogram and repeat troponin. Closely monitor hemodynamic status. MD Eliecer
[2022-10-31] MEDS ORDERED: WARFARIN SOD 4 MG TAB PO SCH (17:24)
[2022-10-31] MEDS ORDERED: ACETAMINOPHEN 325 MG TAB PO PRN (17:24)
[2022-10-31] MEDS ORDERED: LATANOPROST 0.005% OP SOLN 2.5 ML BTL OPB SCH (21:00)
[2022-10-31] MEDS ORDERED: ROSUVASTATIN CALCIUM 20 MG TAB PO SCH (21:00)
--- NOTE | 2022-11-01 05:26 | Electrocardiogram Report ---
Test Reason : Blood Pressure : / mmHG Vent. Rate : 069 BPM Atrial Rate : 049 BPM P-R Int : 000 ms QRS Dur : 100 ms QT Int : 376 ms P-R-T Axes : 000 090 029 degrees QTc Int : 402 ms Poor data quality, interpretation may be adversely affected Atrial fibrillation Rightward axis Abnormal ECG When compared with ECG of 30-MAY-2021 09:51, QT has shortened Confirmed by Alan Correa ([id number]) on 11/01/2022 5:26:47 AM Referred By: Luis Espinoza Confirmed By:Alan Correa
[2022-11-01 06:26] LABS: Hematocrit (blood only) 51.2 % (42.0-52.0); Hemoglobin 17.2 g/dl (14.0-18.0); Mean Corpuscular Hemoglobin 30.8 pg (25.0-34.0); Mean Corpuscular Hgb Conc 33.6 g/dL (32.0-36.0); Mean Corpuscular Volume 91.6 fL (80.0-100.0); Platelet Count 336 K/uL (130-400); RDW Coefficient of Variation 13.3 % (11.5-14.5); RDW Standard Deviation 45.1 fL (36.4-46.3); Red Blood Count 5.59 M/uL (4.70-6.10); White Blood Count 11.51 K/ul (4.8-10.8)
[2022-11-01 06:49] LABS: BUN Creatinine Ratio 19.7 (10-20); Calcium 9.7 mg/dl (8.5-10.1); Creatinine Clr Calc Pharmacy 42.4 ml/min; Est GFR (African American) 67.4 ml/min; Est GFR (Non-African American) 58.1 ml/min; INR 1.7 (0.9-1.1); Magnesium 2.2 mg/dl (1.7-2.4); Phosphorus 3.5 mg/dl (2.5-4.9); Prothrombin Time 17.7 Seconds (9.0-12.0)
[2022-11-01 06:55] LABS: Troponin I High Sensitivity 11.5 pg/ml (0-20)
--- NOTE | 2022-11-01 08:14 | Hospitalist Progress Note ---
Date of Service November 01, 2022 Assessment & Plan (1) Hypertensive urgency: (2) Atypical chest pain: (3) CAD (coronary artery disease): Plan: Admitted to telemetry Patient presenting from home with atypical chest pain. In the ED, found to have significant elevated blood pressure of 216/101, similar to home reading. Patient has had 2 cataract surgeries this year and BPs were noted to be significant elevated during those encounters as well. HS troponin negative x3, EKG without acute ST changes Patient symptoms of chest pain and dizziness likely secondary to hypertensive urgency resting echo obtained Pt also had 3 sec pause on telemetry Patient typically takes lisinopril 20 mg in the morning which he did take this morning prior to coming to the hospital however takes amlodipine 10 mg and metoprolol tartrate 25 mg at dinner. Gave home doses of amlodipine and metoprolol on admission. Currently BP better controlled as all meds given this AM Discussed in detail w/ cardiology - plan to increase lisinopril to 40 mg and follow up closely w/ cardiology clinic. (4) Permanent atrial fibrillation: Plan: Rate controlled on metoprolol, anticoagulated on Coumadin INR 1.5 on admission--Gave Coumadin 4 mg at night (typical dosing schedule is 4 mg MWF, 2 mg SuTuThSa) Follows with [facility] clinic - needs to follow up (5) DVT prophylaxis: Plan: SCDs when INR < 2.0 Admission and Anticipated Discharge Date Admission Date: October 31, 2022 Subjective Pt seen in follow up of chest pain, elev. BP Currently laying in bed, in no acute distress, overall feeling well Denies any chest pain palpitations, headache dizziness On telemetry 3-second pause noted, ECG obtained, and will further discuss with cardiology Echocardiogram obtained earlier this morning, pending read Review of Systems Review of Systems: All systems reviewed & are unremarkable except as noted in Subjective Physical Exam Constitutional: WD/WN, vitals as above Eyes: PERRL, conjunctivae normal, anicteric sclerae ENMT: external ear and nose normal, oropharynx normal Neck: trachea midline, no thyromegaly Respiratory: normal respiratory effort, lungs clear to auscultation Cardiovascular: RRR, no murmur, no edema Gastrointestinal (Abdomen): Inspection/Auscultation: abdomen normal to inspection Musculoskeletal: no cyanosis or clubbing, extremities motor strength 5/5 Skin: no rashes, warm and dry Neurologic: PERRL, EOMI, accommodation nl, no face palsy, no dysarthria Psychiatric: A+Ox3, euthymic affect Results & Data Results & Data ([facility]) Vital Signs (Past 12 Hours) Vital Signs Temp Pulse Pulse Resp BP Pulse Ox O2 Del Method 11/01/22 07:50 36.8 C 69 18 177/79 H 99 Room Air 10/31/22 21:59 70 11/01/22 02:52 36.7 C 58 L 15 180/74 H 96 Room Air 10/31/22 23:03 36.8 C 66 18 186/75 H 95 Room Air Laboratory Results 11/01/22 11/01/22 11/01/22 Range/Units 05:21 05:21 05:21 WBC 11.51 H (4.8-10.8) K/ul RBC 5.59 (4.70-6.10) M/uL Hgb 17.2 (14.0-18.0) g/dl Hct 51.2 (42.0-52.0) % MCV 91.6 (80.0-100.0) fL MCH 30.8 (25.0-34.0) pg MCHC 33.6 (32.0-36.0) g/dL RDW Std Deviation 45.1 (36.4-46.3) fL RDW Coeff of Bonnie 13.3 (11.5-14.5) % Plt Count 336 (130-400) K/uL MPV 10.0 (9.4-12.4) fL Immature Gran % (Auto) % Neut % (Auto) % Lymph % (Auto) % [place] % (Auto) % Eos % (Auto) % Baso % (Auto) % Neut # (Auto) (1.40-6.50) K/uL Lymph # (Auto) (1.2-3.4) K/uL [place] # (Auto) (0.11-0.59) K/uL Eos # (Auto) (0-0.50) K/uL Baso # (Auto) (0-0.2) K/uL Immature Gran # (Auto) (0.01-0.20) K/uL PT 17.7 H (9.0-12.0) Seconds INR 1.7 H (0.9-1.1) APTT (21.0-31.0) Seconds PTT Ratio Sodium 142 (136-145) mmol/L Potassium 4.0 (3.5-5.1) mmol/L Chloride 106 (98-107) mmol/L Carbon Dioxide 29 (21-32) mmol/L Anion Gap 7 (3-11) BUN 23 (6-23) mg/dl Creatinine 1.17 (0.6-1.4) mg/dl Est Cr Clr Drug Dosing 42.4 ml/min Est GFR ( Amer) 67.4 ml/min Est GFR (Non-Af Amer) 58.1 ml/min BUN/Creatinine Ratio 19.7 (10-20) Glucose 91 (70-99(Fasting)) mg/dl Calcium 9.7 (8.5-10.1) mg/dl Phosphorus 3.5 (2.5-4.9) mg/dl Magnesium 2.2 (1.7-2.4) mg/dl Total Bilirubin (0.2-1.0) mg/dl AST (13-39) U/L ALT (7-52) U/L Alkaline Phosphatase (34-104) U/L Troponin I High Sens 11.5 (0-20) pg/ml Total Protein (6.0-8.3) gm/dl Albumin (3.4-5.0) gm/dl Globulin (2.5-4.0) gm/dl Albumin/Globulin Ratio (0.9-2) Lipase (11-82) U/L SARS-CoV-2, RNA, NAAT (NEGATIVE) 10/31/22 10/31/22 10/31/22 Range/Units 21:24 14:46 13:18 WBC (4.8-10.8) K/ul RBC (4.70-6.10) M/uL Hgb (14.0-18.0) g/dl Hct (42.0-52.0) % MCV (80.0-100.0) fL MCH (25.0-34.0) pg MCHC (32.0-36.0) g/dL RDW Std Deviation (36.4-46.3) fL RDW Coeff of Bonnie (11.5-14.5) % Plt Count (130-400) K/uL MPV (9.4-12.4) fL Immature Gran % (Auto) % Neut % (Auto) % Lymph % (Auto) % [place] % (Auto) % Eos % (Auto) % Baso % (Auto) % Neut # (Auto) (1.40-6.50) K/uL Lymph # (Auto) (1.2-3.4) K/uL [place] # (Auto) (0.11-0.59) K/uL Eos # (Auto) (0-0.50) K/uL Baso # (Auto) (0-0.2) K/uL Immature Gran # (Auto) (0.01-0.20) K/uL PT (9.0-12.0) Seconds INR (0.9-1.1) APTT (21.0-31.0) Seconds PTT Ratio Sodium (136-145) mmol/L Potassium (3.5-5.1) mmol/L Chloride (98-107) mmol/L Carbon Dioxide (21-32) mmol/L Anion Gap (3-11) BUN (6-23) mg/dl Creatinine (0.6-1.4) mg/dl Est Cr Clr Drug Dosing ml/min Est GFR ( Amer) ml/min Est GFR (Non-Af Amer) ml/min BUN/Creatinine Ratio (10-20) Glucose (70-99(Fasting)) mg/dl Calcium (8.5-10.1) mg/dl Phosphorus (2.5-4.9) mg/dl Magnesium (1.7-2.4) mg/dl Total Bilirubin (0.2-1.0) mg/dl AST (13-39) U/L ALT (7-52) U/L Alkaline Phosphatase (34-104) U/L Troponin I High Sens 10.4 8.5 (0-20) pg/ml Total Protein (6.0-8.3) gm/dl Albumin (3.4-5.0) gm/dl Globulin (2.5-4.0) gm/dl Albumin/Globulin Ratio (0.9-2) Lipase (11-82) U/L SARS-CoV-2, RNA, NAAT NEGATIVE (NEGATIVE) 10/31/22 10/31/22 10/31/22 Range/Units 12:00 12:00 12:00 WBC 10.61 (4.8-10.8) K/ul RBC 5.68 (4.70-6.10) M/uL Hgb 17.5 (14.0-18.0) g/dl Hct 51.2 (42.0-52.0) % MCV 90.1 (80.0-100.0) fL MCH 30.8 (25.0-34.0) pg MCHC 34.2 (32.0-36.0) g/dL RDW Std Deviation 44.4 (36.4-46.3) fL RDW Coeff of Bonnie 13.4 (11.5-14.5) % Plt Count 357 (130-400) K/uL MPV 10.1 (9.4-12.4) fL Immature Gran % (Auto) 0.6 % Neut % (Auto) 68.4 % Lymph % (Auto) 18.6 % [place] % (Auto) 7.4 % Eos % (Auto) 3.6 % Baso % (Auto) 1.4 % Neut # (Auto) 7.27 H (1.40-6.50) K/uL Lymph # (Auto) 1.97 (1.2-3.4) K/uL [place] # (Auto) 0.78 H (0.11-0.59) K/uL Eos # (Auto) 0.38 (0-0.50) K/uL Baso # (Auto) 0.15 (0-0.2) K/uL Immature Gran # (Auto) 0.06 (0.01-0.20) K/uL PT 15.6 H (9.0-12.0) Seconds INR 1.5 H (0.9-1.1) APTT 33.4 H (21.0-31.0) Seconds PTT Ratio 1.2 Sodium 140 (136-145) mmol/L Potassium 4.4 (3.5-5.1) mmol/L Chloride 105 (98-107) mmol/L Carbon Dioxide 30 (21-32) mmol/L Anion Gap 5 (3-11) BUN 18 (6-23) mg/dl Creatinine 0.98 (0.6-1.4) mg/dl Est Cr Clr Drug Dosing 51.4 ml/min Est GFR ( Amer) 83.5 ml/min Est GFR (Non-Af Amer) 72.0 ml/min BUN/Creatinine Ratio 18.4 (10-20) Glucose 103 H (70-99(Fasting)) mg/dl Calcium 9.5 (8.5-10.1) mg/dl Phosphorus (2.5-4.9) mg/dl Magnesium (1.7-2.4) mg/dl Total Bilirubin 0.7 (0.2-1.0) mg/dl AST 29 (13-39) U/L ALT 29 (7-52) U/L Alkaline Phosphatase 88 (34-104) U/L Troponin I High Sens 7.4 (0-20) pg/ml Total Protein 7.7 (6.0-8.3) gm/dl Albumin 4.8 (3.4-5.0) gm/dl Globulin 2.9 (2.5-4.0) gm/dl Albumin/Globulin Ratio 1.7 (0.9-2) Lipase 29 (11-82) U/L SARS-CoV-2, RNA, NAAT (NEGATIVE) Medications Administered Current Inpatient Medications Acetaminophen (Acetaminophen 325 Mg Tab) 650 mg PO Q4H PRN PRN Reason: Pain or Fever Stop: 11/30/22 17:23 Amlodipine Besylate (Amlodipine Besylate 5 Mg Tab) 10 mg PO DAILY [facility] Stop: 12/01/22 08:59 Last Admin: 11/01/22 08:38 Dose: 10 mg Aspirin (Aspirin 81 Mg Ectab) 81 mg PO QAM [facility] Stop: 12/01/22 08:59 Last Admin: 11/01/22 08:38 Dose: 81 mg Carbamazepine (Carbamazepine 100 Mg Tabcr) 300 mg PO QDD [facility] Stop: 11/30/22 17:59 Last Admin: 10/31/22 19:35 Dose: 300 mg Latanoprost (Latanoprost 0.005% Op Soln 2.5 Ml Btl) 1 drops OPB HS [facility] Stop: 11/30/22 20:59 Last Admin: 10/31/22 22:13 Dose: 1 drops Lisinopril (Lisinopril 20 Mg Tab) 20 mg PO QAM [facility] Stop: 12/01/22 08:59 Last Admin: 11/01/22 08:37 Dose: 20 mg Metoprolol Tartrate (Metoprolol Tartrate 25 Mg Tab) 25 mg PO DAILY [facility] Stop: 12/01/22 08:59 Last Admin: 11/01/22 08:38 Dose: 25 mg Potassium Citrate (Potassium Citrate 10 Meq Tab) 10 meq PO QAM [facility] Stop: 12/01/22 08:59 Last Admin: 11/01/22 08:36 Dose: 10 meq Rosuvastatin Calcium (Rosuvastatin Calcium 20 Mg Tab) 40 mg PO QPM [facility] Stop: 11/30/22 20:59 Last Admin: 10/31/22 22:13 Dose: 40 mg Timolol Maleate (Timolol Maleate 0.5% Op Soln 5 Ml Btl) 1 drops [facility] Stop: 12/01/22 08:59 Last Admin: 11/01/22 08:37 Dose: 1 drops
[2022-11-01] MEDS ORDERED: PERFLUTREN LIPID MICROSPHERE (DEFINITY) IV ONE (08:25)
[2022-11-01] MEDS ORDERED: TIMOLOL MALEATE 0.5% OP SOLN 5 ML BTL OPL SCH (09:00)
[2022-11-01] MEDS ORDERED: ASPIRIN 81 MG ECTAB PO SCH (09:00)
[2022-11-01] MEDS ORDERED: METOPROLOL TARTRATE 25 MG TAB PO SCH (09:00)
[2022-11-01] MEDS ORDERED: POTASSIUM CITRATE 10 MEQ TAB PO SCH (09:00)
[2022-11-01] MEDS ORDERED: lisinopril 20 MG TAB PO SCH (09:00)
[2022-11-01] MEDS ORDERED: amLODIPine BESYLATE 5 MG TAB PO SCH (09:00)
--- NOTE | 2022-11-01 11:25 | Cardiology Consultation ---
Date of Consultation November 01, 2022 Assessment & Plan (1) A-fib: (2) Atypical chest pain: Plan The patient's chest pain is atypical and he has negative high-sensitivity troponins and no acute changes on his EKG. He is listed as having hypertensive urgency, at present his blood pressure is reasonably but she may want to increase his lisinopril to 40 mg daily. He had one 3-second pause on telemetry which was asymptomatic and completely acceptable for patient with chronic atrial fibrillation. I will arrange follow-up after discharge. History of Present Illness Attending Physician: John Gonzáles MD History of Present Illness This is an 82-year-old male patient who is well-known to our service and is followed with our group for many years. The patient was in his usual state of health. The night prior to admission he states that he has itchy feet and did not want to wake his up. He got up and went and slept on the couch. When he woke up the next day he was having right-sided chest discomfort which increases with movement. After admission here, his cardiac markers have been negative. EKG shows no acute changes. Of note, the patient has chronic atrial fibrillation with appropriate heart rate on the monitor. He did have one 3- second pause which was asymptomatic and not clinically significant in the patient with atrial fibrillation. Past medical history: 1.CAD, h/o CA 1990, s/p CABG 1990 a.H/o CA with PCI x3 stents, 2011 2.Atrial fibrillation, initially diagnosed in the setting of CA (2011), s/p ? ablation- follows with Dr. Jaun huitroncurrently chronic since 2015. b.[id number] score of 4 (age 3, CAD, HTN)- on Warfarin Allergies Allergy/AdvReac Type Severity Reaction Status Date / Time pollen extracts Allergy Mild Sneezing Verified 10/01/22 11:00 Home Medications Medication Instructions Recorded Confirmed Type amlodipine 10 mg tablet 10 mg PO QDD 02/14/20 10/31/22 History latanoprost 0.005 % eye drops 1 drp OPB HS 02/14/20 10/31/22 History lisinopril 20 mg tablet 20 mg PO QAM 02/14/20 10/31/22 History metoprolol tartrate 25 mg tablet 25 mg PO QDD 02/14/20 10/31/22 History rosuvastatin 40 mg tablet 40 mg PO QPM 02/14/20 10/31/22 History meclizine 12.5 mg tablet 12.5 mg PO DAILY PRN Dizziness 02/18/20 10/31/22 History aspirin 81 mg tablet,delayed 81 mg PO QAM #0 tabs 02/25/20 10/31/22 Rx release sennosides 8.6 mg-docusate sodium 2 tab PO QAM PRN Constipation 05/29/21 10/31/22 History 50 mg tablet (Senokot-S) cholecalciferol (vitamin D3) 50 50 mcg PO QPM 08/07/21 10/31/22 History mcg (2,000 unit) capsule potassium citrate 15 mEq (1,620 15 meq PO QAM 08/29/22 10/31/22 History mg) tablet,extended release timolol maleate 0.5 % eye drops 1 drp ophthalmic (eye) QAM 08/29/22 10/31/22 History warfarin 4 mg tablet 2 mg PO SUTUTHSA 08/29/22 10/31/22 History carbamazepine 300 mg 300 mg PO QDD 10/31/22 10/31/22 History capsule,extended release [id number] warfarin 4 mg tablet 4 mg PO MOWEFR 10/31/22 10/31/22 History Patient History Medical History Bipolar 1 disorder Bladder outlet obstruction CAD (coronary artery disease) s/p CABG- 3 vessel (1990), PVI + stent (2011) Depression Glaucoma Follows with eye doctor History of COVID-19 05/2022, home test, mild symptoms and cough>lasted 3 days>resolved. History of CA (myocardial infarction) 1990, 2011x3 (had stent placed twice) History of nephrolithiasis HLD (hyperlipidemia) HTN (hypertension) Inguinal hernia of left side without obstruction or gangrene On anticoagulant therapy Permanent atrial fibrillation Skin cancer Follows derm Vitamin D deficiency Surgical History History of cardiac cath PVI + stent (2011)-"had 3 minor heart attacks" History of cardioversion ~2011, [facility]; attempted, not successful "have been in a-fib ever since"; f/u dr galvin, [facility] History of colonoscopy History of coronary artery bypass graft 1990; follows with [facility] History of cystoscopy History of heart artery stent x 2 (both placed in 2011) History of transurethral resection of prostate 06/14/21 [facility]: MAC. No issues per anesthesia postop progress note. History of vasectomy Hx of right cataract extraction S/P appendectomy 1960 S/P left inguinal hernia repair (10/18/21) Open Left Inguinal Hernia Repair with Mesh and Excision of Cord Lipoma(Left) - Kartik Tristan DO 10/18/2021 Family History Mother Myocardial infarction Father Cancer Multiple Myeloma Social History Smoking Status: Never smoker Tobacco Type: Cigarettes packs per day: 1; Second Hand Exposure: No; Hx Alcohol Use: Yes Alcohol type: hard liquor Alcohol Intake Frequency Comment: 3 oz a week Hx Substance Use: No Preferred Language: Kiswahili Communication Ability: Effective Visual Impairment: No Limitations Computer Tape Librarian Required: No Beliefs That Will Affect Care: None marital status: Current Living Situation: Spouse current occupational status: retired How many Children do You have: 2 Other Information That Helps Us Care for You: No Feels Safe at Home: Yes Safety Concerns: Feels Safe At This Time during the past year weight has: remained stable Assistive Devices: None Review of Systems Review of Systems: Review of Systems: See HPI for pertinent positives. All other 10 point review of systems are negative. Physical Exam Physical Exam: General: no acute distress and stated age Head: normocephalic, no masses, lesions, tenderness or abnormalities Eyes: conjunctiva are pink and non-injected, sclera clear Neck: supple, no adenopathy, no bruits, normal jugular venous pulse, no hepatojugular reflux Chest: normal shape and normal respiratory effort Lungs: clear to auscultation and percussion Cardiac Exam: - regular rate & rhythm, no murmurs gallops or rubs - normal S1, normal S2 Pulses: 2(+) throughout Abdomen: abdomen soft, non-tender, no abnormal masses and no hepatosplenomegaly Musculoskeletal: no gait disturbance, no joint inflammation, no deforming arthritis Extremities: no edema and no cyanosis Neuro: grossly normal exam Results & Data ([facility]) Vital Signs (Past 12 Hours) Vital Signs Temp Pulse Resp BP Pulse Ox O2 Del Method 11/01/22 11:11 65 159/74 H 11/01/22 07:50 36.8 C 69 18 177/79 H 99 Room Air 11/01/22 02:52 36.7 C 58 L 15 180/74 H 96 Room Air Laboratory Results Laboratory Results - last 24 hr 10/31/22 10/31/22 10/31/22 13:18 14:46 21:24 WBC RBC Hgb Hct MCV MCH MCHC RDW Std Deviation RDW Coeff of Bonnie Plt Count MPV PT INR Sodium Potassium Chloride Carbon Dioxide Anion Gap BUN Creatinine Est Cr Clr Drug Dosing Est GFR ( Amer) Est GFR (Non-Af Amer) BUN/Creatinine Ratio Glucose Calcium Phosphorus Magnesium Troponin I High Sens 8.5 10.4 SARS-CoV-2, RNA, NAAT NEGATIVE 11/01/22 11/01/22 11/01/22 05:21 05:21 05:21 WBC 11.51 H RBC 5.59 Hgb 17.2 Hct 51.2 MCV 91.6 MCH 30.8 MCHC 33.6 RDW Std Deviation 45.1 RDW Coeff of Bonnie 13.3 Plt Count 336 MPV 10.0 PT 17.7 H INR 1.7 H Sodium 142 Potassium 4.0 Chloride 106 Carbon Dioxide 29 Anion Gap 7 BUN 23 Creatinine 1.17 Est Cr Clr Drug Dosing 42.4 Est GFR ( Amer) 67.4 Est GFR (Non-Af Amer) 58.1 BUN/Creatinine Ratio 19.7 Glucose 91 Calcium 9.7 Phosphorus 3.5 Magnesium 2.2 Troponin I High Sens 11.5 SARS-CoV-2, RNA, NAAT Medications Administered Current Inpatient Medications Acetaminophen (Acetaminophen 325 Mg Tab) 650 mg PO Q4H PRN PRN Reason: Pain or Fever Stop: 11/30/22 17:23 Amlodipine Besylate (Amlodipine Besylate 5 Mg Tab) 10 mg PO DAILY [facility] Stop: 12/01/22 08:59 Last Admin: 11/01/22 08:38 Dose: 10 mg Aspirin (Aspirin 81 Mg Ectab) 81 mg PO QAM EMELIA Stop: 12/01/22 08:59 Last Admin: 11/01/22 08:38 Dose: 81 mg Carbamazepine (Carbamazepine 100 Mg Tabcr) 300 mg PO QDD EMELIA Stop: 11/30/22 17:59 Last Admin: 10/31/22 19:35 Dose: 300 mg Latanoprost (Latanoprost 0.005% Op Soln 2.5 Ml Btl) 1 drops OPB HS [facility] Stop: 11/30/22 20:59 Last Admin: 10/31/22 22:13 Dose: 1 drops Lisinopril (Lisinopril 20 Mg Tab) 20 mg PO QAM [facility] Stop: 12/01/22 08:59 Last Admin: 11/01/22 08:37 Dose: 20 mg Metoprolol Tartrate (Metoprolol Tartrate 25 Mg Tab) 25 mg PO DAILY EMELIA Stop: 12/01/22 08:59 Last Admin: 11/01/22 08:38 Dose: 25 mg Potassium Citrate (Potassium Citrate 10 Meq Tab) 10 meq PO QAM [facility] Stop: 12/01/22 08:59 Last Admin: 11/01/22 08:36 Dose: 10 meq Rosuvastatin Calcium (Rosuvastatin Calcium 20 Mg Tab) 40 mg PO QPM EMELIA Stop: 11/30/22 20:59 Last Admin: 10/31/22 22:13 Dose: 40 mg Timolol Maleate (Timolol Maleate 0.5% Op Soln 5 Ml Btl) 1 drops OPL QAM [facility] Stop: 12/01/22 08:59 Last Admin: 11/01/22 08:37 Dose: 1 drops (1) A-fib Atrial fibrillation type: unspecified Qualified Code(s): I48.91 - Unspecified atrial fibrillation
--- NOTE | 2022-11-01 13:27 | Discharge Summary ---
Date of Service November 01, 2022 Admission HPI Per Admitting Provider 82-year-old male with PMH CAD (hx CO in 1990 s/p CABG, hx CO in 2011 with PCI x 3 stents), HTN, permanent atrial fibrillation anticoagulated on Coumadin, nephrolithiasis, and other problems listed below who presents to the ED for evaluation of chest pain. Patient reports that he decided to sleep on the couch last evening which is unusual for him. He states that he had to sleep lying flat without his usual pillow. He woke up shortly before 8 AM and noted a right-sided chest pain. Patient reports pain was worse with each inspiration. He states that once he sat up the pain completely resolved. 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 This also quickly resolved. Patient called his PCPs office and was advised to come to the ED for further evaluation. He checked his BP at home and reported to be 211/115. Patient reports he otherwise has been feeling well recently. He denies any other recent illnesses, fevers, chills. No abdominal pain, nausea, vomiting, diarrhea. Denies urinary symptoms. In the ED, patient's BP remained elevated at 216/101. There was some mild improvement during ED stay however when checked manually during my exam BP was 218/98. HS trop negative x2, EKG without acute ST changes. Labs unremarkable. Admission Exam Per Admitting Provider Alert and oriented elderly male, in no acute distress, breathing comfortably on room air. EOMI, normocephalic atraumatic. Clear to auscultation bilaterally without any wheezing rhonchi crackles noted. Heart sounds regular. Abdomen soft nontender nondistended. No lower extremity edema. Skin warm dry well-perfused, no rashes noted. Principal Diagnosis Atypical chest pain, hypertensive urgency Discharge Exam Alert and oriented elderly male, in no acute distress, breathing comfortably on room air. EOMI, normocephalic atraumatic. Clear to auscultation bilaterally without any wheezing rhonchi crackles noted. Heart sounds regular. Abdomen soft nontender nondistended. No lower extremity edema. Skin warm dry well-perfused, no rashes noted. Discharge Data Allergies Allergy/AdvReac Type Severity Reaction Status Date / Time pollen extracts Allergy Mild Sneezing Verified 01/31/23 11:00 Consultations 10/31/22 14:01 ED Decision to Admit Stat 11/01/22 11:11 Consult Cardiology Routine Hospital Course (1) Hypertensive urgency: (2) Atypical chest pain: (3) CAD (coronary artery disease): (4) Permanent atrial fibrillation: 1) Hypertensive urgency: (2) Atypical chest pain: (3) CAD (coronary artery disease): Plan: Admitted to telemetry Patient presenting from home with atypical chest pain. In the ED, found to have significant elevated blood pressure of 216/101, similar to home reading. Patient has had 2 cataract surgeries this year and BPs were noted to be significant elevated during those encounters as well. HS troponin negative x3, EKG without acute ST changes Patient symptoms of chest pain and dizziness likely secondary to hypertensive urgency resting echo obtained Pt also had 3 sec pause on telemetry Patient typically takes lisinopril 20 mg in the morning which he did take this morning prior to coming to the hospital however takes amlodipine 10 mg and metoprolol tartrate 25 mg at dinner. Gave home doses of amlodipine and metoprolol on admission. Currently BP better controlled as all meds given this AM Discussed in detail w/ cardiology - plan to increase lisinopril to 40 mg and follow up closely w/ cardiology clinic. 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 You will be called by cardiology office about the appointment. Increase your lisinopril dose to 40 mg daily. Make sure to follow-up with your anticoagulation clinic, as your INR was low - 1.5 on admission. Pending Studies at Discharge: No Stand-Alone Forms: My [facility], Smoking Cessation Medications and DC Order Prescriptions: New lisinopril 40 mg tablet 40 mg PO DAILY Qty: 20 0RF Continued cholecalciferol (vitamin D3) 50 mcg (2,000 unit) capsule 50 mcg PO QPM Rx Instructions: with dinner latanoprost 0.005 % drops 1 drp OPB HS amlodipine 10 mg tablet 10 mg PO QDD Rx Instructions: with dinner rosuvastatin 40 mg tablet 40 mg PO QPM Rx Instructions: with dinner metoprolol tartrate 25 mg tablet 25 mg PO QDD Rx Instructions: with dinner meclizine 12.5 mg Tablet 12.5 mg PO DAILY PRN (Reason: Dizziness) aspirin 81 mg Tablet,Delayed Release (Dr/Ec) 81 mg PO QAM Qty: 0 0RF Rx Instructions: Hold 1 sennosides-docusate sodium [Senokot-S] 8.6-50 mg tablet 2 tab PO QAM PRN (Reason: Constipation) timolol maleate 0.5 % Drops 1 drp OPHTHALMIC (EYE) QAM Rx Instructions: left eye potassium citrate 15 mEq tablet extended release 15 meq PO QAM warfarin 4 mg Tablet 2 mg PO SUTUTHSA warfarin 4 mg Tablet 4 mg PO MOWEFR carbamazepine 300 mg capsule, ER multiphase 12 hr 300 mg PO QDD Discontinued lisinopril 20 mg tablet 20 mg PO QAM Discharge Orders: Discharge Order (Routine); Ordered 11/01/22 Ordered By: John Gonzáles Admission Data Admit Date/Time: 10/31/22 15:10 Attending Provider: John Gonzáles Admit Provider: John Gonzáles Primary Care Provider: Luis Espinoza Other Providers: John Gonzáles ; Betito Koehler
--- NOTE | 2022-11-01 15:12 | Electrocardiogram Report ---
Test Reason : Blood Pressure : / mmHG Vent. Rate : 053 BPM Atrial Rate : 357 BPM P-R Int : 000 ms QRS Dur : 100 ms QT Int : 430 ms P-R-T Axes : 000 090 074 degrees QTc Int : 403 ms Atrial fibrillation with slow ventricular response Rightward axis Abnormal ECG When compared with ECG of 31-OCT-2022 11:40, No significant change was found Confirmed by Anival Weems ([id number]) on 11/01/2022 3:12:10 PM Referred By: Luis Espinoza Confirmed By:Anival Weems
== END 2022-11-01 14:49 | disposition home or self-care (01) ==
LOC: ED 11:30 → EDINP 11:30 → 2S 17:21

== ENCOUNTER 2023-10-28 16:30 | Inpatient (IN) ==
--- NOTE | 2023-10-28 16:37 | ED Triage Note ---
Date of Service October 28, 2023 Provider in Triage Author: Felipe Escalona History of Present Illness This patient was briefly evaluated while in triage. An abbreviated physical exam was performed. This patient is a 83-year-old Male who presents to the ED for evaluation of abdominal pain. Concerned may have a bowel blockage. Notes abd pain. Passing gas but minimal stool. Physical Exam GENERAL: 83 year old male. In no acute distress. SKIN: No lesions or rashes. HEART: Irregular rate and rhythm. LUNGS: Clear to auscultation. ABDOMEN: Bowel sounds normoactive. No guarding or rigidity. Mid abd TTP noted. NEURO: Alert and oriented. No deficits. MUSCULOSKELETAL: No deformities to inspection of the extremities. PSYCH: Patient is pleasant and answers all questions appropriately. Initial orders for labs and / or imaging were placed and patient was placed in the waiting area until a bed is available. Please see further documentation for the full ED course.
[2023-10-28 17:31] LABS: Eosinophils % (auto) 5.1 %; Hematocrit (blood only) 40.4 % (42.0-52.0); Hemoglobin 13.3 g/dl (14.0-18.0); Immature Granulocytes # (auto) 0.04 K/uL (0.01-0.20); Immature Granulocytes % (auto) 0.4 %; Lymphocytes # (auto) 1.89 K/uL (1.20-3.40); Lymphocytes % (auto) 19.1 %; Mean Corpuscular Hemoglobin 30.4 pg (25.0-34.0); Mean Corpuscular Hgb Conc 32.9 g/dL (32.0-36.0); Mean Corpuscular Volume 92.2 fL (80.0-100.0); Mean Platelet Volume 10.2 fL (9.4-12.4); Monocytes # (auto) 0.64 K/uL (0.11-0.59); Monocytes % (auto) 6.5 %; Neutrophils # (auto) 6.71 K/uL (1.40-6.50); Neutrophils % (auto) 67.9 %; Platelet Count 355 K/uL (130-400); RDW Coefficient of Variation 14.1 % (11.5-14.5); RDW Standard Deviation 47.9 fL (36.4-46.3); Red Blood Count 4.38 M/uL (4.70-6.10); White Blood Count 9.88 K/ul (4.8-10.8)
[2023-10-28 17:45] LABS: Albumin Globulin Ratio 1.4 (0.9-2); Albumin Level 4.1 gm/dl (3.4-5.0); BUN Creatinine Ratio 15.5 (10-20); Bilirubin,Total 0.6 mg/dl (0.2-1.0); Calcium 8.8 mg/dl (8.6-10.3); Creatinine Clr Calc Pharmacy 28.5 ml/min; Est GFR (African American) 50.3 ml/min; Est GFR (Non-African American) 43.4 ml/min; Globulin 2.9 gm/dl (2.5-4.0); Potassium 4.5 mmol/L (3.5-5.1)
[2023-10-28 17:51] LABS: Troponin I High Sensitivity 7.8 pg/ml (0-20)
[2023-10-28 17:55] LABS: INR 1.8 (0.9-1.1); Partial Thromboplastin Ratio 1.3; Partial Thromboplastin Time 36 Seconds (21-31); Prothrombin Time 18.9 Seconds (9.0-12.0)
[2023-10-28] MEDS: OPTIRAY 320 500ml IV ONE (18:45)
--- NOTE | 2023-10-28 19:09 | CT Scan Report ---
CT SCAN OF THE ABDOMEN AND PELVIS WITH IV CONTRAST CLINICAL HISTORY: Lower abdominal pain. COMPARISON STUDY: Abdominal CT dated 10/04/2021. TECHNIQUE: Following the IV administration of 92 cc of Optiray 320, CT scan of the abdomen and pelvi s is performed from the lung bases to the proximal femora. Images are reviewed in the axial, sagittal , and coronal planes. IV contrast was administered without complication. A dose lowering technique wa s utilized adhering to the principles of ALARA. CT DOSE: 561.23 mGy.cm FINDINGS: Lung bases: The patient is status post midline sternotomy. The heart is enlarged and without pericard ial effusion. The coronary arteries are densely calcified. There is a small hiatal hernia. The lung b ases are clear noting bibasilar scarring/atelectasis. Liver: The contrast-enhanced liver is normal in size and contour. Attenuation is heterogeneous. There is no intrahepatic biliary ductal dilatation. The portal veins are patent. Gallbladder: There are numerous calcified gallstones. The gallbladder is distended, the wall is thick ened and edematous with surrounding inflammation and trace fluid. Spleen: Normal in size and attenuation. Pancreas: A calcification within the pancreatic duct is seen on image #122. The pancreas is mildly at rophic and otherwise grossly unremarkable. Adrenal glands: Unremarkable. Kidneys: The contrast enhanced kidneys are normal in size and without hydronephrosis. The kidneys enh ance symmetrically. Small bilateral renal cysts measure up to 1.6 cm. Additional subcentimeter cortic al hypodensities also likely represent cysts but are too small for definitive characterization. Abdominal vasculature: The abdominal aorta is normal in course and caliber noting advanced atheroscle rotic calcification. 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 Bowel: There is mild colonic diverticulosis without CT evidence of acute diverticulitis. No bowel obs truction is seen. There is moderate constipation. The appendix is not identified and reported surgic ally absent. Peritoneum: There is no intraperitoneal free air or abdominal ascites. There is a small fat-containin g umbilical hernia. Lymphadenopathy: None. Pelvic viscera: The prostate gland is enlarged and heterogeneous. The bladder is significantly disten ded, and the wall appears thickened/trabeculated indicating chronic outlet obstruction. Postoperative changes suggested in the groin bilaterally. There is evidence of previous left inguinal herniorrhaph y. Skeletal structures: The skeletal structures are osteopenic. No lytic or blastic lesions are seen. Th ere is moderate lumbosacral spondylosis. IMPRESSION: 1. Cholelithiasis with acute cholecystitis. Surgical evaluation is advised. 2. Cardiomegaly. 3. Colonic diverticulosis without CT evidence of acute diverticulitis. 4. Moderate constipation. 5. Bladder distention. 6. Additional findings as above. ACT 112: Negative or not required by law. Electronically signed by: Martin Rosen M.D. 10/28/2023 7:07 PM
--- NOTE | 2023-10-28 19:59 | Emergency Department Note ---
Impression & Plan Acute cholecystitis ED Provider Note NAME: JACQUELYN ALY AGE: 83 SEX: Male INFORMANT: Patient ED PROVIDER(S): Adams Flores MD CHIEF COMPLAINT: Abdominal pain PLAN: Disposition: Admitted Outpatient prescription management: none Referral: None MEDICAL DECISION MAKING: Patient presented complaining of abdominal pain and thoughts of constipation. He underwent a workup. No obstruction was seen on CT imaging however he does have acute cholecystitis. CBC and chemistry panels were unremarkable. Patient does have a slightly subtherapeutic INR at 1.8. He had an IV established of normal saline. Patient declined analgesia. He was given a dose of IV Mefoxin. The patient will need further management in the hospital. I did consult with general surgery as well as internal medicine. Patient was evaluated in the emergency department by Michele Torres PA-C for general surgery. Also patient will be admitted by Dr. Robert Cabello, [facility] hospitalist service. Care/management discussed with: manager adobe Level of care consideration(s): After review of the information above and other included data, I feel the patient requires escalation of care to admission Triage Nursing notes: reviewed and agree them. Vital Signs: reviewed and remarkable for no significant abnormalities Additional History obtained from: none Chronic Medical/Social Conditions affecting care: Hypertension, A-fib with anticoagulation Prior/ Outside/ External records reviewed: none Differential Diagnosis: Functional constipation, impaction, biliary pathology, obstruction, volvulus, metabolic abnormality, infection, as well as other pathologies. Diagnostics, independently interpreted by me: ECG: Twelve-lead ECG reveals atrial fibrillation at [address] elevation or depression. Cardiac Monitoring: Cardiac monitoring ordered by me: The patient was placed on continuous cardiac monitoring and observed. It revealed a atrial fibrillation at 87 bpm. Medical decision rules: none Imaging studies: CT scan of the abdomen pelvis is concerning for acute cholecystitis. I refer you to the EMR for further details. HPI: 83 year old Male arrives for evaluation of abdominal pain and constipation. This started 2 days ago and is persisting. Patient notes pain in the upper abdomen. The patient also notes the following associated symptoms, lack of bowel movement over the last 2 days. The patient has tried milk of magnesia and enemas for relieving factors. Current pain is rated as 4/10. Pt denies LOC, headache, fevers, chills, diaphoresis, visual changes, neck pain, chest pain, breathing difficulties, nausea, vomiting, back pain, melena, hematochezia, urinary symptoms, numbness, weakness, lymphadenopathy, rash, or other complaints. . PAST MEDICAL HISTORY: See Below, A-fib PAST SURGICAL HISTORY: See Below, appendectomy SOCIAL HISTORY: See Below, HOME MEDICATIONS: See Below ALLERGIES: See Below VITALS: See Below PHYSICAL EXAMINATION: GENERAL: Awake, alert, mildly uncomfortable-appearing, in no distress HENT: Normocephalic, atraumatic. Oropharynx unremarkable. EYES: Normal conjunctiva. Sclera non-icteric. NECK: Inspection normal. Non-tender. Supple. No nuchal rigidity. FROM. No masses. RESPIRATORY: Clear to auscultation. No wheezes. No rales. Normal respiratory effort. CARDIAC: Normal rate. Normal rhythm. No murmurs. No rubs. Extremities warm and well perfused. Pulses equal. No JVD. GI: Soft, non-distended. Right upper quadrant tenderness to palpation. No rebound or guarding. No masses. RECTAL: Deferred. MUSCULOSKELETAL: Atraumatic. Chest examination reveals no tenderness. The back is symmetrical on inspection without obvious abnormality. There is no CVA tenderness to palpation. No joint edema. LOWER EXTREMITIES: Calves are equal size bilaterally and non-tender. No edema. No discoloration. NEURO: Normal sensorium. No sensory or motor deficits noted. SKIN: No rash or jaundice noted. PROCEDURES: none CRITICAL CARE: none OBSERVATION NOTE: none Past Med/Surg History Medical History (Updated 10/28/23 @ 19:59 by Adams Flores MD) History of Mohs micrographic surgery for skin cancer FOREHEAD 01/2023 Permanent atrial fibrillation 2011-follows w/ [facility] cardio 12/2022 History of COVID-19 05/2022, home test, mild symptoms and cough>lasted 3 days>resolved. Inguinal hernia of left side without obstruction or gangrene Bladder outlet obstruction Follows with urology Skin cancer Follows derm History of nephrolithiasis HLD (hyperlipidemia) HTN (hypertension) On anticoagulant therapy Glaucoma Follows with eye doctor Depression Bipolar 1 disorder CAD (coronary artery disease) s/p CABG- 3 vessel (1990), PVI + stent (2011) History of PR (myocardial infarction) 1990, 2011x3 (had stent placed twice) Surgical History (Updated 06/09/23 @ 13:04 by Kartik Tristan DO) H/O right inguinal hernia repair (05/29/23) Open Right Inguinal Hernia Repair with Mesh(Right) ; excision of cord lipoma- Kartik Tristan DO Hx of left cataract extraction Hx of right cataract extraction S/P left inguinal hernia repair (10/18/21) Open Left Inguinal Hernia Repair with Mesh and Excision of Cord Lipoma(Left) - Kartik Tristan DO 10/18/2021 History of transurethral resection of prostate 06/14/21 [facility]: MAC. No issues per anesthesia postop progress note. History of colonoscopy History of cardioversion ~2011, [facility]; attempted, not successful "have been in a-fib ever since"; f/u dr galvin, [facility] History of vasectomy History of heart artery stent x 2 (both placed in 2011) History of cardiac cath PVI + stent (2011)-"had 3 minor heart attacks" History of cystoscopy History of coronary artery bypass graft 1990; follows with [facility] S/P appendectomy 1960 Family History Mother Myocardial infarction Father Cancer Multiple Myeloma Social History Smoking Status: Never smoker Tobacco Type: Cigarettes packs per day: 1; Second Hand Exposure: No; Do You Dip or Chew Tobacco: No; Hx Alcohol Use: Yes Alcohol type: hard liquor Alcohol Intake Frequency Comment: 3 oz a week Hx Substance Use: No Preferred Language: Croatian Communication Ability: Effective Visual Impairment: No Limitations Neurosurgeon Required: No Beliefs That Will Affect Care: None marital status: Current Living Situation: Spouse current occupational status: retired How many Children do You have: 2 Feels Safe at Home: Yes Diet: regular during the past year weight has: remained stable Assistive Devices: Glasses Allergies Allergies Allergy/AdvReac Type Severity Reaction Status Date / Time pollen extracts Allergy Mild Sneezing Verified 07/21/23 13:52 Home Meds Home Medications Medication Instructions Recorded Confirmed amlodipine 10 mg tablet 10 mg PO QDD 02/14/20 07/21/23 latanoprost 0.005 % eye drops 1 drp OPB HS 02/14/20 07/21/23 metoprolol tartrate 25 mg tablet 25 mg PO QDD 02/14/20 07/21/23 rosuvastatin 40 mg tablet (Crestor) 40 mg PO QPM 02/14/20 07/21/23 meclizine 12.5 mg tablet 12.5 mg PO DAILY PRN Dizziness 02/18/20 07/21/23 sennosides 8.6 mg-docusate sodium 2 tab PO QAM PRN Constipation 05/29/21 07/21/23 50 mg tablet (Senokot-S) cholecalciferol (vitamin D3) 50 50 mcg PO QPM 08/07/21 07/21/23 mcg (2,000 unit) capsule timolol maleate 0.5 % eye drops 1 drp ophthalmic (eye) QAM 08/29/22 07/21/23 warfarin 4 mg tablet 2 mg PO SUTUTHSA 08/29/22 07/21/23 carbamazepine 300 mg 300 mg PO QDD 10/31/22 07/21/23 capsule,extended release [id number] warfarin 4 mg tablet 4 mg PO MOWEFR 10/31/22 07/21/23 ketoconazole 2 % topical cream 1 applic topical DAILY 04/08/23 07/21/23 acetaminophen 325 mg tablet 325 mg PO QID PRN Pain 05/07/23 07/21/23 (Tylenol) triamterene 37.5 1 tab PO QAM 05/07/23 07/21/23 mg-hydrochlorothiazide 25 mg tablet Previous Rx's Medication Instructions Recorded aspirin 81 mg tablet,delayed 81 mg PO QAM #0 tabs 02/25/20 release lisinopril 40 mg tablet 40 mg PO DAILY #20 tabs 11/01/22 potassium citrate 15 mEq (1,620 15 meq PO QAM #90 tabs 05/21/23 mg) tablet,extended release Results & Data (ED) Vital Signs Vital Signs - 24 hr 10/28/23 16:34 10/28/23 17:50 10/28/23 19:18 Temperature 36.9 C Temperature Source Temporal Artery Scan Pulse Rate 77 Pulse Rate [Left Finger] 70 Respiratory Rate 19 16 Respiratory Effort / Characteristics Non-Labored Spontaneous Non-Labored Spontaneous Respiratory Depth Normal Normal Respiratory Pattern Regular Blood Pressure 162/108 H Blood Pressure [Right Arm] 155/81 H Blood Pressure Mean 126 Blood Pressure Mean [Right Arm] 105 Blood Pressure Position [Right Arm] Sitting Pulse Oximetry 98 99 98 Oxygen Delivery Method Room Air Room Air Room Air Sepsis Recent Fever Within 48 Hours No Sepsis New/Unexplained Change in Mental Status No Sepsis Action Taken by Nursing No Action Required 10/28/23 19:18 Temperature 36.5 C Temperature Source Oral Pulse Rate Pulse Rate [Left Finger] 87 Respiratory Rate 17 Respiratory Effort / Characteristics Non-Labored Respiratory Depth Normal Respiratory Pattern Regular Blood Pressure Blood Pressure [Right Arm] 171/85 H Blood Pressure Mean Blood Pressure Mean [Right Arm] 113 Blood Pressure Position [Right Arm] Pulse Oximetry 98 Oxygen Delivery Method Room Air Sepsis Recent Fever Within 48 Hours Sepsis New/Unexplained Change in Mental Status Sepsis Action Taken by Nursing Laboratory Data 10/28/23 17:05 10/28/23 17:05 Lab Results 10/28/23 Range/Units 17:05 WBC 9.88 (4.8-10.8) K/ul RBC 4.38 L (4.70-6.10) M/uL Hgb 13.3 L (14.0-18.0) g/dl Hct 40.4 L (42.0-52.0) % MCV 92.2 (80.0-100.0) fL MCH 30.4 (25.0-34.0) pg MCHC 32.9 (32.0-36.0) g/dL RDW Std Deviation 47.9 H (36.4-46.3) fL RDW Coeff of Bonnie 14.1 (11.5-14.5) % Plt Count 355 (130-400) K/uL MPV 10.2 (9.4-12.4) fL Immature Gran % (Auto) 0.4 % Neut % (Auto) 67.9 % Lymph % (Auto) 19.1 % Gaston % (Auto) 6.5 % Eos % (Auto) 5.1 % Baso % (Auto) 1.0 % Neut # (Auto) 6.71 H (1.40-6.50) K/uL Lymph # (Auto) 1.89 (1.20-3.40) K/uL Gaston # (Auto) 0.64 H (0.11-0.59) K/uL Eos # (Auto) 0.50 (0.00-0.50) K/uL Baso # (Auto) 0.10 (0.00-0.20) K/uL Immature Gran # (Auto) 0.04 (0.01-0.20) K/uL PT 18.9 H (9.0-12.0) Seconds INR 1.8 H (0.9-1.1) APTT 36 H (21-31) Seconds PTT Ratio 1.3 Sodium 141 (136-145) mmol/L Potassium 4.5 (3.5-5.1) mmol/L Chloride 106 (98-107) mmol/L Carbon Dioxide 30 (21-32) mmol/L Anion Gap 5 (3-11) BUN 23 (6-23) mg/dl Creatinine 1.48 H (0.6-1.4) mg/dl Est Cr Clr Drug Dosing 28.5 ml/min Est GFR ( Amer) 50.3 ml/min Est GFR (Non-Af Amer) 43.4 ml/min BUN/Creatinine Ratio 15.5 (10-20) Glucose 106 H (70-99(Fasting)) mg/dl Calcium 8.8 (8.6-10.3) mg/dl Total Bilirubin 0.6 (0.2-1.0) mg/dl AST 27 (13-39) U/L ALT 22 (7-52) U/L Alkaline Phosphatase 96 (34-104) U/L Troponin I High Sens 7.8 (0-20) pg/ml Total Protein 7.0 (6.0-8.3) gm/dl Albumin 4.1 (3.4-5.0) gm/dl Globulin 2.9 (2.5-4.0) gm/dl Albumin/Globulin Ratio 1.4 (0.9-2) Lipase 36 (11-82) U/L Administered Medications Discontinued Medications Ioversol (Optiray 320 500ml) 92 ml IV ONCE ONE Stop: 10/28/23 18:46 Last Admin: 10/28/23 18:45 Dose: 92 ml Documented By: ANIA Imaging Data Radiologist's Impression: Abdomen/Pelvis CT 10/28/23 16:38 CT SCAN OF THE ABDOMEN AND PELVIS WITH IV CONTRAST CLINICAL HISTORY: Lower abdominal pain. COMPARISON STUDY: Abdominal CT dated 10/04/2021. TECHNIQUE: Following the IV administration of 92 cc of Optiray 320, CT scan of the abdomen and pelvis is performed from the lung bases to the proximal femora. Images are reviewed in the axial, sagittal, and coronal planes. IV contrast was administered without complication. A dose lowering technique was utilized adhering to the principles of ALARA. CT DOSE: 561.23 mGy.cm FINDINGS: Lung bases: The patient is status post midline sternotomy. The heart is enlarged and without pericardial effusion. The coronary arteries are densely calcified. There is a small hiatal hernia. The lung bases are clear noting bibasilar scarring/atelectasis. Liver: The contrast-enhanced liver is normal in size and contour. Attenuation is heterogeneous. There is no intrahepatic biliary ductal dilatation. The portal veins are patent. Gallbladder: There are numerous calcified gallstones. The gallbladder is distended, the wall is thickened and edematous with surrounding inflammation and trace fluid. Spleen: Normal in size and attenuation. Pancreas: A calcification within the pancreatic duct is seen on image #122. The pancreas is mildly atrophic and otherwise grossly unremarkable. Adrenal glands: Unremarkable. Kidneys: The contrast enhanced kidneys are normal in size and without hydronephrosis. The kidneys enhance symmetrically. Small bilateral renal cysts measure up to 1.6 cm. Additional subcentimeter cortical hypodensities also likely represent cysts but are too small for definitive characterization. Abdominal vasculature: The abdominal aorta is normal in course and caliber noting advanced atherosclerotic calcification. 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 Bowel: There is mild colonic diverticulosis without CT evidence of acute diverticulitis. No bowel obstruction is seen. There is moderate constipation. The appendix is not identified and reported surgically absent. Peritoneum: There is no intraperitoneal free air or abdominal ascites. There is a small fat-containing umbilical hernia. Lymphadenopathy: None. Pelvic viscera: The prostate gland is enlarged and heterogeneous. The bladder is significantly distended, and the wall appears thickened/trabeculated indicating chronic outlet obstruction. Postoperative changes suggested in the groin bilaterally. There is evidence of previous left inguinal herniorrhaphy. Skeletal structures: The skeletal structures are osteopenic. No lytic or blastic lesions are seen. There is moderate lumbosacral spondylosis. IMPRESSION: 1. Cholelithiasis with acute cholecystitis. Surgical evaluation is advised. 2. Cardiomegaly. 3. Colonic diverticulosis without CT evidence of acute diverticulitis. 4. Moderate constipation. 5. Bladder distention. 6. Additional findings as above. ACT 112: Negative or not required by law. Electronically signed by: Martin Rosen M.D. 10/28/2023 7:07 PM Discharge Plan Visit Data Chief Complaint: Constipation Stated Complaint: CONSTIPATION ED Provider: Adams Flores Discharge Problem: Acute cholecystitis Forms Stand Alone Forms: My [facility] Prescriptions Prescriptions: No Action potassium citrate 15 mEq tablet extended release 15 meq PO QAM Qty: 90 3RF cholecalciferol (vitamin D3) 50 mcg (2,000 unit) capsule 50 mcg PO QPM Rx Instructions: with dinner ketoconazole 2 % cream 1 applic topical DAILY latanoprost 0.005 % drops 1 drp OPB HS amlodipine 10 mg tablet 10 mg PO QDD Rx Instructions: with dinner rosuvastatin [Crestor] 40 mg tablet 40 mg PO QPM Rx Instructions: with dinner metoprolol tartrate 25 mg tablet 25 mg PO QDD Rx Instructions: with dinner meclizine 12.5 mg Tablet 12.5 mg PO DAILY PRN (Reason: Dizziness) aspirin 81 mg Tablet,Delayed Release (Dr/Ec) 81 mg PO QAM Qty: 0 0RF Rx Instructions: Hold 1 acetaminophen [Tylenol] 325 mg Tablet 325 mg PO QID PRN (Reason: Pain) triamterene-hydrochlorothiazid 37.5-25 mg tablet 1 tab PO QAM sennosides-docusate sodium [Senokot-S] 8.6-50 mg tablet 2 tab PO QAM PRN (Reason: Constipation) timolol maleate 0.5 % Drops 1 drp OPHTHALMIC (EYE) QAM Rx Instructions: left eye warfarin 4 mg Tablet 2 mg PO SUTUTHSA Hold Instructions: Resume on 05/30/23. You can restart on 05/29/23 warfarin 4 mg Tablet 4 mg PO MOWEFR Hold Instructions: Resume on 05/30/23. carbamazepine 300 mg capsule, ER multiphase 12 hr 300 mg PO QDD lisinopril 40 mg tablet 40 mg PO DAILY Qty: 20 0RF Referrals Referrals: Luis Espinoza, [Primary Care Provider] -
[2023-10-28] MEDS: cefOXitin 2,000 MG/60 ML BAG IV STA (20:00)
[2023-10-28] MEDS: SODIUM CHLORIDE 0.9% 1,000 ML IV SCH (20:04)
[2023-10-28] MEDS: LACTATED RINGER'S 1,000 ML IV ONE (20:10)
--- NOTE | 2023-10-28 20:18 | Surgery Consultation ---
<Statement entered by Bridget Hayes DO - 10/29/23 03:33> This case was discussed with the surgical PA, I agree with the plan Date of Consultation October 28, 2023 Assessment & Plan (1) Acute cholecystitis: I discussed with the treating emergency room physician and the patient is being admitted on the hospital service. From surgery perspective we recommend proceeding as follows: Provide analgesics Provide antiemetics Provide gentle hydration with IV fluids Antibiotics have been initiated in the form of cefoxitin and this should continue The patient takes Coumadin for anticoagulation as described in the HPI. As noted he took his most recent dose the evening of 10/27/2023. Anticoagulation should be held and serial labs to be followed (these have been ordered for tomorrow morning). If patient's INR is higher tomorrow morning we will have to consider potentially reversing his Coumadin in order for him to undergo any potential surgical procedures Will follow serial CBCs and chemistry profiles along with serial LFTs We will check a gallbladder ultrasound for further delineation of the biliary system It appears as though the patient will benefit from cholecystectomy however we need to ensure that his INR is in acceptable range, and this will ultimately determine the timing of any surgery. It would be preferable if his INR was 1.5 or lower in order to proceed with surgery. Additional recommendations be forthcoming based on his clinical course as unfolds History of Present Illness Reason for Consultation: Cholecystitis History of Present Illness This an 83-year-old male who presented to the emergency department secondary to abdominal pain. Patient notes that earlier this afternoon he developed some lower abdominal pain that he felt was secondary to a bowel blockage. The patient felt that this was the case because he has been having issues with constipation lately. He does admit however, that he had a small bowel movement earlier today. With his symptoms he denies any nausea or vomiting. He also denies any fevers, shakes, or chills. He does not report any modifying factors to the pain. Because of his pain he did report to the emergency department as noted above. He has had prior abdominal surgeries in the form of bilateral inguinal herniorrhaphies. Patient also adds that he has a history of atrial fibrillation and he does take Coumadin for this problem. He says that he had a recent change in his Coumadin dose and 2 nights ago he took 6 mg and last evening he took 4 mg. Patient says that he does walk daily and with his day-to-day life he does not get any chest pain or shortness of breath. He is followed locally by [facility] cardiology Since arrival to the hospital the patient has had labs and imaging which I independent reviewed. He did have a CT scan of the abdomen and pelvis that showed cholelithiasis with findings concerning for acute cholecystitis (the gallbladder is noted to be distended and thick-walled with surrounding inflammation and trace pericholecystic fluid). Labs include a CBC her white blood cell count and platelet count were normal. Hemoglobin and hematocrit are 13.3 and 40.4. Chemistry profile showed sodium and potassium along with the BUN were normal. The patient's creatinine had a slight elevation at 1.4. Patient's LFTs and lipase were nonelevated. Coagulation studies showed he had an INR of 1.8. An EKG showed atrial fibrillation without changes indicative of acute ischemia. At the time of my interview he was resting comfortably in bed he was no distress Allergies Allergy/AdvReac Type Severity Reaction Status Date / Time pollen extracts Allergy Mild Sneezing Verified 07/21/23 13:52 Home Medications Medication Instructions Recorded Confirmed Type amlodipine 10 mg tablet 10 mg PO QDD 02/14/20 07/21/23 History latanoprost 0.005 % eye drops 1 drp OPB HS 02/14/20 07/21/23 History metoprolol tartrate 25 mg tablet 25 mg PO QDD 02/14/20 07/21/23 History rosuvastatin 40 mg tablet (Crestor) 40 mg PO QPM 02/14/20 07/21/23 History meclizine 12.5 mg tablet 12.5 mg PO DAILY PRN Dizziness 02/18/20 07/21/23 History aspirin 81 mg tablet,delayed 81 mg PO QAM #0 tabs 02/25/20 07/21/23 Rx release sennosides 8.6 mg-docusate sodium 2 tab PO QAM PRN Constipation 05/29/21 07/21/23 History 50 mg tablet (Senokot-S) cholecalciferol (vitamin D3) 50 50 mcg PO QPM 08/07/21 07/21/23 History mcg (2,000 unit) capsule timolol maleate 0.5 % eye drops 1 drp ophthalmic (eye) QAM 08/29/22 07/21/23 History warfarin 4 mg tablet 2 mg PO SUTUTHSA 08/29/22 07/21/23 History carbamazepine 300 mg 300 mg PO QDD 10/31/22 07/21/23 History capsule,extended release [id number] warfarin 4 mg tablet 4 mg PO MOWEFR 10/31/22 07/21/23 History lisinopril 40 mg tablet 40 mg PO DAILY #20 tabs 11/01/22 07/21/23 Rx ketoconazole 2 % topical cream 1 applic topical DAILY 04/08/23 07/21/23 History acetaminophen 325 mg tablet 325 mg PO QID PRN Pain 05/07/23 07/21/23 History (Tylenol) triamterene 37.5 1 tab PO QAM 05/07/23 07/21/23 History mg-hydrochlorothiazide 25 mg tablet potassium citrate 15 mEq (1,620 15 meq PO QAM #90 tabs 05/21/23 07/21/23 Rx mg) tablet,extended release Patient History Medical History History of Mohs micrographic surgery for skin cancer FOREHEAD 01/2023 Permanent atrial fibrillation 2011-follows w/ [facility] cardio 12/2022 History of COVID-19 05/2022, home test, mild symptoms and cough>lasted 3 days>resolved. Inguinal hernia of left side without obstruction or gangrene Bladder outlet obstruction Follows with urology Skin cancer Follows derm History of nephrolithiasis HLD (hyperlipidemia) HTN (hypertension) On anticoagulant therapy Glaucoma Follows with eye doctor Depression Bipolar 1 disorder CAD (coronary artery disease) s/p CABG- 3 vessel (1990), PVI + stent (2011) History of TX (myocardial infarction) 1990, 2011x3 (had stent placed twice) Surgical History H/O right inguinal hernia repair (05/29/23) Open Right Inguinal Hernia Repair with Mesh(Right) ; excision of cord lipoma- Kartik Tristan DO Hx of left cataract extraction Hx of right cataract extraction S/P left inguinal hernia repair (10/18/21) Open Left Inguinal Hernia Repair with Mesh and Excision of Cord Lipoma(Left) - Kartik Tristan DO 10/18/2021 History of transurethral resection of prostate 06/14/21 [facility]: MAC. No issues per anesthesia postop progress note. History of colonoscopy History of cardioversion ~2011, [facility]; attempted, not successful "have been in a-fib ever since"; f/u dr galvin, [facility] History of vasectomy History of heart artery stent x 2 (both placed in 2011) History of cardiac cath PVI + stent (2011)-"had 3 minor heart attacks" History of cystoscopy History of coronary artery bypass graft 1990; follows with [facility] S/P appendectomy 1960 Family History Mother Myocardial infarction Father Cancer Multiple Myeloma Social History Smoking Status: Never smoker Tobacco Type: Cigarettes packs per day: 1; Second Hand Exposure: No; Do You Dip or Chew Tobacco: No; Hx Alcohol Use: Yes Alcohol type: hard liquor Alcohol Intake Frequency Comment: 3 oz a week Hx Substance Use: No Preferred Language: Bulgarian Communication Ability: Effective Visual Impairment: No Limitations Cotton Wringer Required: No Beliefs That Will Affect Care: None marital status: Current Living Situation: Spouse current occupational status: retired How many Children do You have: 2 Feels Safe at Home: Yes Diet: regular during the past year weight has: remained stable Assistive Devices: Glasses Review of Systems Constitutional: no fever and no chills Ear, Nose, Mouth, Throat: no hearing loss Respiratory: no cough and no dyspnea Cardiovascular: no chest pain Gastrointestinal: + abdominal pain; no nausea and no vomit ing Genitourinary: no dysuria Musculoskeletal: no back pain Integumentary: no rash Neurologic: no localized weakness Physical Exam Constitutional: WD/WN, vitals as above Eyes: + anicteric sclerae ENMT: Ears: no hearing impairment Mouth: no oropharynx abnormality Neck: trachea midline Respiratory: normal respiratory effort; no respiratory distress and no labored breathing Cardiovascular: Rate/Rhythm: + irregularly irregular Gastrointestinal (Abdomen): Abdomen has minimal distention noted. Bowel sounds are present. There is no rebound tenderness or guarding but patient did have pain with palpation greatest in the right upper quadrant Musculoskeletal: No calf tenderness. 1+ bilateral lower extremity edema noted Skin: no rashes Neurologic: moves all extremities Psychiatric: A+Ox3, euthymic affect Results & Data Vital Signs (Past 12 Hours) Vital Signs Temp Pulse Pulse Resp BP BP Pulse Ox 10/28/23 19:18 36.5 C 87 17 171/85 H 98 10/28/23 19:18 98 10/28/23 17:50 70 16 155/81 H 99 10/28/23 16:34 36.9 C 77 19 162/108 H 98 O2 Del Method 10/28/23 19:18 Room Air 10/28/23 19:18 Room Air 10/28/23 17:50 Room Air 10/28/23 16:34 Room Air PG Care Time/CCT Total # of Minutes Spent Total Time Spent with Patient: Total time spent is greater than 50% in coordination of care (as documented) at patient's floor/unit and/or counseling patient: Coding Level of Care Code 28224 INT INP/OBS CARE 3/75MIN Diagnoses Acute cholecystitis K81.0
[2023-10-28 20:35] LABS: Magnesium 2.1 mg/dl (1.7-2.4)
--- NOTE | 2023-10-28 21:27 | Ultrasound Report ---
ULTRASOUND RIGHT UPPER QUADRANT ABDOMEN CLINICAL HISTORY: Right upper quadrant abdominal pain. Acute cholecystitis. COMPARISON STUDY: Abdominal CT dated 10/28/2023. TECHNIQUE: Real-time, grayscale, and color flow sonography of the right upper quadrant of the abdomen was performed. Images are reviewed in the transverse and longitudinal planes. FINDINGS: Liver: The liver is normal in size and heterogeneous and echotexture. There is no intrahepatic biliar y ductal dilatation. The main portal vein is patent. Gallbladder: The gallbladder is distended and contains stones/sludge. There are likely stones within the cystic duct. The gallbladder wall is thickened and edematous measuring up to 9 mm in thickness. T here is trace pericholecystic fluid. A sonographic Velez's sign is reportedly absent. The common jose e duct measures up to 0.4 cm in diameter. Pancreas: Visualized portions of the pancreatic head and body are normal in appearance. The splenic v ein is patent. Right kidney: Survey images of the right kidney demonstrate normal size and echotexture. There is no hydronephrosis. Small renal cyst measuring 9 mm. Ascites: None. IMPRESSION: Cholelithiasis with evidence of acute cholecystitis. See above. ACT 112: Negative or not required by law. Electronically signed by: Martin Rosen M.D. 10/28/2023 9:25 PM
[2023-10-28] MEDS: METOPROLOL TARTRATE 1 MG/ML VIAL IV ONE (22:12)
[2023-10-28] MEDS: METOPROLOL TARTRATE 1 MG/ML VIAL IV STA (22:14)
[2023-10-28] MEDS ORDERED: ACETAMINOPHEN 325 MG TAB PO PRN (22:38)
[2023-10-28] MEDS ORDERED: oxyCODONE HCL IR 5 MG TAB (IMMEDIATE RELEASE) PO PRN (22:38)
[2023-10-28] MEDS ORDERED: PROMETHAZINE HCL 6.25 MG in SODIUM CHLORIDE 0.9% 50 ML IV PRN (22:38)
[2023-10-28] MEDS: PHYTONADIONE 5 MG TAB PO STA (23:24)
[2023-10-28] MEDS: DOCUSATE SODIUM/SENNA 50/8.6MG TAB PO STA (23:24)
[2023-10-28] MEDS: POLYETHYLENE (MIRALAX) 17 GM PACK PO STA (23:24)
[2023-10-28] MEDS: carvediloL 6.25 MG TAB PO STA (23:24)
[2023-10-28 23:31] LABS: Folate (Folic Acid),Ser orPlas 7.25 ng/ml (>5.38)
[2023-10-28 23:38] LABS: Ferritin 113.7 ng/ml (8-388)
[2023-10-28 23:41] LABS: Appearance Urine Clear (Clear); Bilirubin Urine Negative (Negative); Blood Urine Negative (Negative); Color Urine Yellow; Glucose Urine UA Negative (Negative); Ketones Urine Trace (Negative); Leukocyte Esterase Urine Negative (Negative); Nitrite Urine Negative (Negative); Protein Urine Negative (Negative); Specific Gravity Urine 1.027 (1.000-1.030); Urobilinogen Urine Negative (Negative)
[2023-10-28 23:45] LABS: Reticulocyte % 1.89 % (0.50-2.00); Reticulocytes # 0.08 10^6/uL (0.020-0.100)
--- NOTE | 2023-10-29 00:06 | History & Physical Report ---
Date of Service October 28, 2023 Late entry Patient seen 10/28/2023 Assessment & Plan (1) Asymptomatic hypertensive urgency: Plan: Secondary to cholecystitis No sepsis for now chronic diastolic failure (EF 60%, TTE 2022), patient euvolemic to dry hx CAD status post CABG A-fib on Coumadin, INR slightly subtherapeutic New onset anemia, patient denies bleeding symptoms, FOBT at the ER was negative mild AR hyperlipidemia on statin Rx bipolar disorder, stable on regimen past tobacco abuse Medical telemetry given BP elevation Facilitate p.m. Coreg now Zosyn for cholecystitis General surgery consult Re: Cholecystitis (Patient already evaluated at the ER by provider. Possible surgery tomorrow.) Vitamin K 1 dose now given INR elevation and anticipated subsequent elevation following antibiotic administration DVT prophylaxis. SCDs while Coumadin on hold Full code Text document was generated using [employer] voice recognition software. It may contain grammatical or spelling errors. Kindly contact undersigned for clarification of any documentation item in question. History of Present Illness Chief Complaint: Abdominal pain, constipation Primary Care Provider: Luis Espinoza DO History obtained from patient and records. Medical history significant for chronic diastolic failure (EF 60%, TTE 2022), CAD status post CABG/stent, A-fib on Coumadin, mild AR, hypertension, hyperlipidemia, bipolar disorder, past tobacco abuse. Last confinement October 2022 for hypertensive urgency. 2 days history of central abdominal pain associated with constipation. No nausea, no vomiting. Constipation not improved with home laxatives. Patient denies headache, chest pain, SOB. Denies black/bloody stools, hematuria. SBP 190s around 9 PM at the ER. 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 Allergies Allergy/AdvReac Type Severity Reaction Status Date / Time pollen extracts Allergy Mild Sneezing Verified 10/28/23 21:36 Home Medications Medication Instructions Recorded Confirmed Type amlodipine 10 mg tablet 10 mg PO QAM 02/14/20 10/28/23 History latanoprost 0.005 % eye drops 1 drp OPB HS 02/14/20 10/28/23 History rosuvastatin 40 mg tablet (Crestor) 40 mg PO QPM 02/14/20 10/28/23 History aspirin 81 mg tablet,delayed 81 mg PO QAM #0 tabs 02/25/20 10/28/23 Rx release cholecalciferol (vitamin D3) 50 50 mcg PO QPM 08/07/21 10/28/23 History mcg (2,000 unit) capsule timolol maleate 0.5 % eye drops 1 drp OPL QAM 08/29/22 10/28/23 History carbamazepine 300 mg 300 mg PO HS 10/31/22 10/28/23 History capsule,extended release [id number] ketoconazole 2 % topical cream 1 applic topical DAILY 04/08/23 10/28/23 History potassium citrate 15 mEq (1,620 15 meq PO QAM #90 tabs 05/21/23 10/28/23 Rx mg) tablet,extended release carvedilol 6.25 mg tablet 6.25 mg PO AMHS 10/28/23 10/28/23 History ciprofloxacin HCl 500 mg tablet 500 mg PO BID 10/28/23 10/28/23 History fluorouracil 0.5 % topical cream 1 applic topical BID 10/28/23 10/28/23 History lisinopril 20 mg tablet 20 mg PO QAM 10/28/23 10/28/23 History loratadine 10 mg tablet 10 mg PO QAM 10/28/23 10/28/23 History meclizine 25 mg tablet 25 mg PO TID PRN Dizziness 10/28/23 10/28/23 History sildenafil 50 mg tablet 50 mg PO .UD PRN Sexual Activity 10/28/23 10/28/23 History triamcinolone acetonide 0.1 % 1 applic topical BID PRN Skin 10/28/23 10/28/23 History topical cream Irritation warfarin 2 mg tablet 2 mg PO [id number] 10/28/23 10/28/23 History warfarin 2 mg tablet 4 mg PO [id number] 10/28/23 10/28/23 History Past Med/Surg History Medical History History of Mohs micrographic surgery for skin cancer FOREHEAD 01/2023 Permanent atrial fibrillation 2011- w/ [facility] cardio 12/2022 History of COVID-19 05/2022, home test, mild symptoms and cough>lasted 3 days>resolved. Inguinal hernia of left side without obstruction or gangrene Bladder outlet obstruction Follows with urology Skin cancer Follows derm History of nephrolithiasis HLD (hyperlipidemia) HTN (hypertension) On anticoagulant therapy Glaucoma Follows with eye doctor Depression Bipolar 1 disorder CAD (coronary artery disease) s/p CABG- 3 vessel (1990), PVI + stent (2011) History of OK (myocardial infarction) 1990, 2012x3 (had stent placed twice) Surgical History H/O right inguinal hernia repair (05/29/23) Open Right Inguinal Hernia Repair with Mesh(Right) ; excision of cord lipoma- Kartik Tristan DO Hx of left cataract extraction Hx of right cataract extraction S/P left inguinal hernia repair (10/18/21) Open Left Inguinal Hernia Repair with Mesh and Excision of Cord Lipoma(Left) - Kartik Tristan DO 10/18/2021 History of transurethral resection of prostate 06/14/21 [facility]: MAC. No issues per anesthesia postop progress note. History of colonoscopy History of cardioversion ~2011, [facility]; attempted, not successful "have been in a-fib ever since"; f/u dr galvin, [facility] History of vasectomy History of heart artery stent x 2 (both placed in 2011) History of cardiac cath PVI + stent (2011)-"had 3 minor heart attacks" History of cystoscopy History of coronary artery bypass graft 1990; follows with [facility] S/P appendectomy 1960 Family History Mother Myocardial infarction Father Cancer Multiple Myeloma Social History Smoking Status: Former smoker Tobacco Type: Cigarettes packs per day: 1; Second Hand Exposure: No; Do You Dip or Chew Tobacco: No; Hx Alcohol Use: No Hx Substance Use: No Preferred Language: Bangladeshi Communication Ability: Effective Visual Impairment: No Limitations Ordnance Keeper Required: No Beliefs That Will Affect Care: None marital status: Current Living Situation: Spouse current occupational status: retired How many Children do You have: 2 Other Information That Helps Us Care for You: No Feels Safe at Home: Yes Safety Concerns: Feels Safe At This Time Diet: regular during the past year weight has: remained stable Assistive Devices: Glasses Review of Systems Review of Systems: As per HPI, all other systems reviewed and negative Physical Exam Physical Exam: GENERAL: Comfortable, pleasant, pallor no respiratory distress SKIN: Normal color, warm HEENT: Alopecia, pale palpebral conjunctivae, no ptosis, dry buccal mucosa NECK : Supple, no tenderness CHEST : CTA, no tenderness HEART : Irregular, no obvious murmurs ABDOMEN: Some distention, no overt tenderness RECTAL : Intact sphincter, yellow brown stool (FOBT negative) EXTREMITIES : No LE swelling/tenderness, no other conspicuous deformities noted NEUROLOGIC : Coherent, no facial asymmetry, no other gross focality Results & Data Results & Data Vital Signs (Past 12 Hours) Vital Signs Temp Pulse Pulse Resp BP BP Pulse Ox 10/28/23 23:28 88 22 163/97 H 90 10/28/23 19:18 36.5 C 87 17 171/85 H 98 10/28/23 19:18 98 10/28/23 17:50 70 16 155/81 H 99 10/28/23 16:34 36.9 C 77 19 162/108 H 98 O2 Del Method 10/28/23 23:28 Room Air 10/28/23 19:18 Room Air 10/28/23 19:18 Room Air 10/28/23 17:50 Room Air 10/28/23 16:34 Room Air Laboratory Results Laboratory Results WBC 9.88 K/ul (4.8-10.8) 10/28/23 17:05 RBC 4.38 M/uL (4.70-6.10) L 10/28/23 17:05 Hgb 13.3 g/dl (14.0-18.0) L 10/28/23 17:05 Hct 40.4 % (42.0-52.0) L 10/28/23 17:05 MCV 92.2 fL (80.0-100.0) 10/28/23 17:05 MCH 30.4 pg (25.0-34.0) 10/28/23 17:05 MCHC 32.9 g/dL (32.0-36.0) 10/28/23 17:05 RDW Std Deviation 47.9 fL (36.4-46.3) H 10/28/23 17:05 RDW Coeff of Bonnie 14.1 % (11.5-14.5) 10/28/23 17:05 Plt Count 355 K/uL (130-400) 10/28/23 17:05 MPV 10.2 fL (9.4-12.4) 10/28/23 17:05 Immature Gran % (Auto) 0.4 % 10/28/23 17:05 Neut % (Auto) 67.9 % 10/28/23 17:05 Lymph % (Auto) 19.1 % 10/28/23 17:05 Meigs % (Auto) 6.5 % 10/28/23 17:05 Eos % (Auto) 5.1 % 10/28/23 17:05 Baso % (Auto) 1.0 % 10/28/23 17:05 Reticulocyte % (Auto) 1.89 % (0.50-2.00) 10/28/23 17:05 Neut # (Auto) 6.71 K/uL (1.40-6.50) H 10/28/23 17:05 Lymph # (Auto) 1.89 K/uL (1.20-3.40) 10/28/23 17:05 Meigs # (Auto) 0.64 K/uL (0.11-0.59) H 10/28/23 17:05 Eos # (Auto) 0.50 K/uL (0.00-0.50) 10/28/23 17:05 Baso # (Auto) 0.10 K/uL (0.00-0.20) 10/28/23 17:05 Reticulocyte # 0.080 10^6/uL (0.020-0.100) 10/28/23 17:05 Immature Gran # (Auto) 0.04 K/uL (0.01-0.20) 10/28/23 17:05 PT 18.9 Seconds (9.0-12.0) H 10/28/23 17:05 INR 1.8 (0.9-1.1) H 10/28/23 17:05 APTT 36 Seconds (21-31) H 10/28/23 17:05 PTT Ratio 1.3 10/28/23 17:05 Sodium 141 mmol/L (136-145) 10/28/23 17:05 Potassium 4.5 mmol/L (3.5-5.1) 10/28/23 17:05 Chloride 106 mmol/L (98-107) 10/28/23 17:05 Carbon Dioxide 30 mmol/L (21-32) 10/28/23 17:05 Anion Gap 5 (3-11) 10/28/23 17:05 BUN 23 mg/dl (6-23) 10/28/23 17:05 Creatinine 1.48 mg/dl (0.6-1.4) H 10/28/23 17:05 Est Cr Clr Drug Dosing 28.5 ml/min 10/28/23 17:05 Est GFR ( Amer) 50.3 ml/min 10/28/23 17:05 Est GFR (Non-Af Amer) 43.4 ml/min 10/28/23 17:05 BUN/Creatinine Ratio 15.5 (10-20) 10/28/23 17:05 Glucose 106 mg/dl (70-99(Fasting)) H 10/28/23 17:05 Calcium 8.8 mg/dl (8.6-10.3) 10/28/23 17:05 Magnesium 2.1 mg/dl (1.7-2.4) 10/28/23 17:05 Iron 48 mcg/dl (35-175) 10/28/23 17:05 Transferrin 170 mg/dl (200-360) L 10/28/23 17:05 Ferritin 113.7 ng/ml (8-388) 10/28/23 17:05 Total Bilirubin 0.6 mg/dl (0.2-1.0) 10/28/23 17:05 AST 27 U/L (13-39) 10/28/23 17:05 ALT 22 U/L (7-52) 10/28/23 17:05 Alkaline Phosphatase 96 U/L (34-104) 10/28/23 17:05 Troponin I High Sens 7.8 pg/ml (0-20) 10/28/23 17:05 Total Protein 7.0 gm/dl (6.0-8.3) 10/28/23 17:05 Albumin 4.1 gm/dl (3.4-5.0) 10/28/23 17:05 Globulin 2.9 gm/dl (2.5-4.0) 10/28/23 17:05 Albumin/Globulin Ratio 1.4 (0.9-2) 10/28/23 17:05 Lipase 36 U/L (11-82) 10/28/23 17:05 Vitamin B12 263 pg/ml (180-914) 10/28/23 17:05 Folate 7.25 ng/ml (>5.38) 10/28/23 17:05 Urine Color Yellow 10/28/23 23:30 Urine Appearance Clear (Clear) 10/28/23 23:30 Urine pH 8.0 (4.5-7.5) H 10/28/23 23:30 Ur Specific [place] 1.027 (1.000-1.030) 10/28/23 23:30 Urine Protein Negative (Negative) 10/28/23 23:30 Urine Glucose (UA) Negative (Negative) 10/28/23 23:30 Urine Ketones Trace (Negative) H 10/28/23 23:30 Urine Blood Negative (Negative) 10/28/23 23:30 Urine Nitrite Negative (Negative) 10/28/23 23:30 Urine Bilirubin Negative (Negative) 10/28/23 23:30 Urine Urobilinogen Negative (Negative) 10/28/23 23:30 Ur Leukocyte Esterase Negative (Negative) 10/28/23 23:30 Impressions Abdomen/Pelvis CT 10/28/23 16:38 CT SCAN OF THE ABDOMEN AND PELVIS WITH IV CONTRAST CLINICAL HISTORY: Lower abdominal pain. COMPARISON STUDY: Abdominal CT dated 10/04/2021. TECHNIQUE: Following the IV administration of 92 cc of Optiray 320, CT scan of the abdomen and pelvis is performed from the lung bases to the proximal femora. Images are reviewed in the axial, sagittal, and coronal planes. IV contrast was administered without complication. A dose lowering technique was utilized adhering to the principles of ALARA. CT DOSE: 561.23 mGy.cm FINDINGS: Lung bases: The patient is status post midline sternotomy. The heart is enlarged and without pericardial effusion. The coronary arteries are densely calcified. There is a small hiatal hernia. The lung bases are clear noting bibasilar scarring/atelectasis. Liver: The contrast-enhanced liver is normal in size and contour. Attenuation is heterogeneous. There is no intrahepatic biliary ductal dilatation. The portal veins are patent. Gallbladder: There are numerous calcified gallstones. The gallbladder is distended, the wall is thickened and edematous with surrounding inflammation and trace fluid. Spleen: Normal in size and attenuation. Pancreas: A calcification within the pancreatic duct is seen on image #122. The pancreas is mildly atrophic and otherwise grossly unremarkable. Adrenal glands: Unremarkable. Kidneys: The contrast enhanced kidneys are normal in size and without hydronephrosis. The kidneys enhance symmetrically. Small bilateral renal cysts measure up to 1.6 cm. Additional subcentimeter cortical hypodensities also likely represent cysts but are too small for definitive characterization. Abdominal vasculature: The abdominal aorta is normal in course and caliber noting advanced atherosclerotic calcification. 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 Bowel: There is mild colonic diverticulosis without CT evidence of acute diverticulitis. No bowel obstruction is seen. There is moderate constipation. The appendix is not identified and reported surgically absent. Peritoneum: There is no intraperitoneal free air or abdominal ascites. There is a small fat-containing umbilical hernia. Lymphadenopathy: None. Pelvic viscera: The prostate gland is enlarged and heterogeneous. The bladder is significantly distended, and the wall appears thickened/trabeculated indicating chronic outlet obstruction. Postoperative changes suggested in the groin bilaterally. There is evidence of previous left inguinal herniorrhaphy. Skeletal structures: The skeletal structures are osteopenic. No lytic or blastic lesions are seen. There is moderate lumbosacral spondylosis. IMPRESSION: 1. Cholelithiasis with acute cholecystitis. Surgical evaluation is advised. 2. Cardiomegaly. 3. Colonic diverticulosis without CT evidence of acute diverticulitis. 4. Moderate constipation. 5. Bladder distention. 6. Additional findings as above. ACT 112: Negative or not required by law. Electronically signed by: Martin Rosen M.D. 10/28/2023 7:07 PM Gallbladder Ultrasound 10/28/23 20:18 ULTRASOUND RIGHT UPPER QUADRANT ABDOMEN CLINICAL HISTORY: Right upper quadrant abdominal pain. Acute cholecystitis. COMPARISON STUDY: Abdominal CT dated 10/28/2023. TECHNIQUE: Real-time, grayscale, and color flow sonography of the right upper quadrant of the abdomen was performed. Images are reviewed in the transverse and longitudinal planes. FINDINGS: Liver: The liver is normal in size and heterogeneous and echotexture. There is no intrahepatic biliary ductal dilatation. The main portal vein is patent. Gallbladder: The gallbladder is distended and contains stones/sludge. There are likely stones within the cystic duct. The gallbladder wall is thickened and edematous measuring up to 9 mm in thickness. There is trace pericholecystic fluid. A sonographic Velez's sign is reportedly absent. The common bile duct measures up to 0.4 cm in diameter. Pancreas: Visualized portions of the pancreatic head and body are normal in appearance. The splenic vein is patent. Right kidney: Survey images of the right kidney demonstrate normal size and echotexture. There is no hydronephrosis. Small renal cyst measuring 9 mm. Ascites: None. IMPRESSION: Cholelithiasis with evidence of acute cholecystitis. See above. ACT 112: Negative or not required by law. Electronically signed by: Martin Rosen M.D. 10/28/2023 9:25 PM Diagnostic Findings EKG as per my interpretation : Rate 75, A-fib, LAD, LSB, inferior infarct, septa l infarct, no ischemia, PVCs Code Status & VTE Plan VTE Prophylaxis Plan VTE Prophylaxis will be ordered: Yes
[2023-10-29] MEDS: carBAMazepine 200 MG TABLET PO SCH (01:40)
[2023-10-29] MEDS: TIMOLOL MALEATE 0.5% OP SOLN 5 ML BTL OPL SCH (02:48)
[2023-10-29] MEDS: PIPERACILLIN/TAZOBACTAM 4.5 GM in DEXTROSE 5% MINI-B 100 ML IV SCH (03:07)
--- NOTE | 2023-10-29 06:52 | Surgery Progress Note ---
Date of Service October 29, 2023 Assessment & Plan (1) Acute cholecystitis: Plan: Continue to hold Coumadin. F/U INR this am Continue antibiotics. Planning for in patient cholecystectomy. Maintain NPO status for now until we determine if his surgery will be today or tomorrow. Surgical PA/ECOLOGIST TECHNICIAN will f/u with medicine regarding this. Admission and Anticipated Discharge Date Admission Date: October 28, 2023 Subjective Patient was seen and examined in the ED this am. He says his pain is improving. He denies N/V. Physical Exam Constitutional: average body habitus; not ill appearing, not in distress and not diaphoretic Respiratory: normal respiratory effort; no respiratory distress, no labored breathing and does not use accessory muscles Cardiovascular: Rate/Rhythm: regular rate; not tachycardic Gastrointestinal (Abdomen): Inspection/Auscultation: abdomen normal to inspection Percussion/Palpation: abdomen soft; abdomen nontender, no guarding and abdomen not rigid Results & Data Vital Signs (Past 12 Hours) Vital Signs Temp Pulse Pulse Resp BP Pulse Ox Pulse Ox 10/29/23 06:05 36.8 C 72 26 H 140/73 93 10/29/23 03:12 83 10/29/23 01:32 95 10/29/23 01:32 37.2 C 88 24 138/89 95 10/29/23 00:15 79 10/28/23 23:28 88 22 163/97 H 90 10/28/23 20:26 76 10/28/23 19:18 36.5 C 87 17 171/85 H 98 10/28/23 19:18 98 O2 Del Method O2 Del Method 10/29/23 06:05 Room Air 10/29/23 03:12 10/29/23 01:32 Room Air 10/29/23 01:32 Room Air 10/29/23 00:15 10/28/23 23:28 Room Air 10/28/23 20:26 10/28/23 19:18 Room Air 10/28/23 19:18 Room Air PG Care Time/CCT Total # of Minutes Spent Total Time Spent with Patient: Total time spent is greater than 50% in coordination of care (as documented) at patient's floor/unit and/or counseling patient: Coding Level of Care Code 78743 SUB INP/OBS CARE 25MIN Diagnoses Acute cholecystitis K81.0
[2023-10-29 07:11] LABS: Basophils # (auto) 0.11 K/uL (0.00-0.20); Basophils % (auto) 0.9 %; Eosinophils # (auto) 0.43 K/uL (0.00-0.50); Eosinophils % (auto) 3.6 %; Hematocrit (blood only) 40.2 % (42.0-52.0); Hemoglobin 13.5 g/dl (14.0-18.0); Immature Granulocytes # (auto) 0.07 K/uL (0.01-0.20); Immature Granulocytes % (auto) 0.6 %; Lymphocytes # (auto) 1.57 K/uL (1.20-3.40); Lymphocytes % (auto) 13.2 %; Mean Corpuscular Hemoglobin 30.6 pg (25.0-34.0); Mean Corpuscular Hgb Conc 33.6 g/dL (32.0-36.0); Mean Corpuscular Volume 91.2 fL (80.0-100.0); Mean Platelet Volume 9.9 fL (9.4-12.4); Monocytes # (auto) 0.88 K/uL (0.11-0.59); Monocytes % (auto) 7.4 %; Neutrophils # (auto) 8.82 K/uL (1.40-6.50); Neutrophils % (auto) 74.3 %; Platelet Count 360 K/uL (130-400); RDW Coefficient of Variation 14.1 % (11.5-14.5); RDW Standard Deviation 47.7 fL (36.4-46.3); Red Blood Count 4.41 M/uL (4.70-6.10); White Blood Count 11.88 K/ul (4.8-10.8)
[2023-10-29 07:26] LABS: Albumin Globulin Ratio 1.6 (0.9-2); Albumin Level 4.1 gm/dl (3.4-5.0); BUN Creatinine Ratio 14.1 (10-20); Bilirubin,Total 1.3 mg/dl (0.2-1.0); Calcium 9.1 mg/dl (8.6-10.3); Creatinine Clr Calc Pharmacy 29.7 ml/min; Est GFR (African American) 52.9 ml/min; Est GFR (Non-African American) 45.7 ml/min; Globulin 2.5 gm/dl (2.5-4.0); Potassium 4.4 mmol/L (3.5-5.1); Total Protein 6.6 gm/dl (6.0-8.3)
[2023-10-29 07:41] LABS: INR 1.5 (0.9-1.1); Prothrombin Time 15.8 Seconds (9.0-12.0)
--- NOTE | 2023-10-29 07:44 | XRay Report ---
SINGLE VIEW CHEST CLINICAL HISTORY: Lower extremity edema FINDINGS: An AP, portable, upright chest radiograph is compared to study dated 10/31/2022. The patient is status post midline sternotomy. The heart is enlarged noting atherosclerotic calcification of the thoracic aorta. There is evidence of congestive failure. There is bibasilar scarring/atelectasis. Que stion trace pleural effusions. No pneumothorax is seen. The skeletal structures are osteopenic. The b mariat thorax is grossly intact. Arthritic change is noted in the shoulders. IMPRESSION: Cardiomegaly with evidence of congestive failure. ACT 112: Negative or not required by law. Electronically signed by: Martin Rosen M.D. 10/29/2023 7:43 AM
[2023-10-29] MEDS: ASPIRIN 81 MG ECTAB PO SCH (08:20)
[2023-10-29] MEDS: amLODIPine BESYLATE 5 MG TAB PO SCH (08:20)
[2023-10-29] MEDS: carvediloL 6.25 MG TAB PO SCH (08:21)
[2023-10-29] MEDS: lisinopril 20 MG TAB PO SCH (08:21)
[2023-10-29] MEDS: DOCUSATE SODIUM/SENNA 50/8.6MG TAB PO SCH (08:22)
--- NOTE | 2023-10-29 10:10 | Anesthesiology Consultation ---
Date of Service October 29, 2023 History Surgery Operation Date: 10/29/23 07:00 Proposed Procedures p Laparoscopic Cholecystectomy - Bridget Hayes, Height/Weight Height: 5 ft 3 in Weight: 52.3 kg Allergies Allergy/AdvReac Type Severity Reaction Status Date / Time pollen extracts Allergy Mild Sneezing Verified 10/28/23 21:36 Medications Home Medications Medication Instructions Recorded Confirmed Last Taken amlodipine 10 mg tablet 10 mg PO QAM 02/14/20 10/28/23 05/28/23 18:30 latanoprost 0.005 % eye drops 1 drp OPB HS 02/14/20 10/28/23 05/28/23 22:30 rosuvastatin 40 mg tablet (Crestor) 40 mg PO QPM 02/14/20 10/28/23 05/28/23 18:30 aspirin 81 mg tablet,delayed 81 mg PO QAM #0 tabs 02/25/20 10/28/23 05/28/23 08:00 release cholecalciferol (vitamin D3) 50 50 mcg PO QPM 08/07/21 10/28/23 05/28/23 18:30 mcg (2,000 unit) capsule timolol maleate 0.5 % eye drops 1 drp OPL QAM 08/29/22 10/28/23 05/29/23 06:00 carbamazepine 300 mg 300 mg PO HS 10/31/22 10/28/23 05/28/23 18:30 capsule,extended release [id number] ketoconazole 2 % topical cream 1 applic topical DAILY 04/08/23 10/28/23 Unknown potassium citrate 15 mEq (1,620 15 meq PO QAM #90 tabs 05/21/23 10/28/23 05/28/23 08:00 mg) tablet,extended release carvedilol 6.25 mg tablet 6.25 mg PO AMHS 10/28/23 10/28/23 Unknown ciprofloxacin HCl 500 mg tablet 500 mg PO BID 10/28/23 10/28/23 Unknown fluorouracil 0.5 % topical cream 1 applic topical BID 10/28/23 10/28/23 Unknown lisinopril 20 mg tablet 20 mg PO QAM 10/28/23 10/28/23 Unknown loratadine 10 mg tablet 10 mg PO QAM 10/28/23 10/28/23 Unknown meclizine 25 mg tablet 25 mg PO TID PRN Dizziness 10/28/23 10/28/23 Unknown sildenafil 50 mg tablet 50 mg PO .UD PRN Sexual Activity 10/28/23 10/28/23 Unknown triamcinolone acetonide 0.1 % 1 applic topical BID PRN Skin 10/28/23 10/28/23 Unknown topical cream Irritation warfarin 2 mg tablet 2 mg PO 3XWK 10/28/23 10/28/23 Unknown warfarin 2 mg tablet 4 mg PO [id number] 10/28/23 10/28/23 Unknown Active Medications Generic Name Dose Route Start Last Admin Trade Name Freq PRN Reason Stop Dose Admin Amlodipine Besylate 10 mg 10/29/23 09:00 10/29/23 08:20 Amlodipine Besylate 5 Mg Tab PO 11/28/23 08:59 10 mg QAM EMELIA Administration Aspirin 81 mg 10/29/23 09:00 10/29/23 08:20 Aspirin 81 Mg Ectab PO 11/28/23 08:59 81 mg QAM EMELIA Administration Carbamazepine 300 mg 10/29/23 00:50 10/29/23 01:40 Carbamazepine 200 Mg Tablet PO 11/28/23 00:49 300 mg HS EMELIA Administration Carvedilol 6.25 mg 10/29/23 09:00 10/29/23 08:21 Carvedilol 6.25 Mg Tab PO 11/28/23 08:59 6.25 mg BID EMELIA Administration Lactated Ringer's 1,000 mls @ 50 mls/hr 10/28/23 20:02 10/28/23 20:10 Lr IV 10/29/23 16:01 50 mls/hr .Q20H ONE Administration Piperacillin Sod/Tazobactam 100 mls @ 25 mls/hr 10/29/23 02:00 10/29/23 08:22 Sod 4.5 gm/ Dextrose IV 11/08/23 01:59 Infused Q8H EMELIA Infusion Protocol Lisinopril 20 mg 10/29/23 09:00 10/29/23 08:21 Lisinopril 20 Mg Tab PO 11/28/23 08:59 20 mg QAM EMELIA Administration Senna/Docusate Sodium 1 tab 10/29/23 09:00 10/29/23 08:22 Docusate Sodium/Senna 50/8.6mg Tab PO 11/28/23 08:59 1 tab QAM EMELIA Administration Timolol Maleate 1 drops 10/29/23 01:05 10/29/23 08:22 Timolol Maleate 0.5% Op Soln 5 Ml Btl OPL 11/28/23 01:04 1 drops QAM EMELIA Administration NPO Date Last Intake of Fluids: 10/28/23 Time Last Intake of Fluids: 23:00 Date Last Intake of Solids: 10/28/23 Time Last Intake of Solids: 23:00 Past Medical History Medical History History of Mohs micrographic surgery for skin cancer FOREHEAD 01/2023 Permanent atrial fibrillation 2011-follows w/ S cardio 12/2022 History of COVID-19 05/2022, home test, mild symptoms and cough>lasted 3 days>resolved. Inguinal hernia of left side without obstruction or gangrene Bladder outlet obstruction Follows with urology Skin cancer Follows derm History of nephrolithiasis HLD (hyperlipidemia) HTN (hypertension) On anticoagulant therapy Glaucoma Follows with eye doctor Depression Bipolar 1 disorder CAD (coronary artery disease) s/p CABG- 3 vessel (1990), PVI + stent (2011) History of IA (myocardial infarction) 1990, 2011x3 (had stent placed twice) Past Family History Family History Mother Myocardial infarction Father Cancer Multiple Myeloma Past Surgical History Surgical History H/O right inguinal hernia repair (05/29/23) Open Right Inguinal Hernia Repair with Mesh(Right) ; excision of cord lipoma- Kartik Tristan DO Hx of left cataract extraction Hx of right cataract extraction S/P left inguinal hernia repair (10/18/21) Open Left Inguinal Hernia Repair with Mesh and Excision of Cord Lipoma(Left) - Kartik Tristan DO 10/18/2021 History of transurethral resection of prostate 06/14/21 [facility]: MAC. No issues per anesthesia postop progress note. History of colonoscopy History of cardioversion ~2011, [facility]; attempted, not successful "have been in a-fib ever since"; f/u dr galvin, [facility] [place] History of vasectomy History of heart artery stent x 2 (both placed in 2011) History of cardiac cath PVI + stent (2011)-"had 3 minor heart attacks" History of cystoscopy History of coronary artery bypass graft 1990; follows with [facility] S/P appendectomy 1960 Social History Smoking Status: Former smoker tobacco type: cigarettes Do You Dip or Chew Tobacco: No Hx Alcohol Use: No Alcohol type: hard liquor alcohol intake frequency: holidays/special occasions only Hx Substance Use: No substance use type: does not use Physical Exam Vital Signs Last Vital Signs Temp 36.9 C 10/29/23 10:04 Pulse 79 10/29/23 10:04 Resp 18 10/29/23 10:04 BP 159/101 H 10/29/23 10:04 Pulse Ox 96 10/29/23 10:04 O2 Del Method Room Air 10/29/23 10:04 Testing Laboratory Results 10/29/23 06:47 10/29/23 06:47 PT 15.8 Seconds (9.0-12.0) H 10/29/23 06:47 INR 1.5 (0.9-1.1) H 10/29/23 06:47 APTT 36 Seconds (21-31) H 10/28/23 17:05 Urine Color Yellow 10/28/23 23:30 Urine Appearance Clear (Clear) 10/28/23 23:30 Urine pH 8.0 (4.5-7.5) H 10/28/23 23:30 Ur Specific [place] 1.027 (1.000-1.030) 10/28/23 23:30 Urine Protein Negative (Negative) 10/28/23 23:30 Urine Glucose (UA) Negative (Negative) 10/28/23 23:30 Urine Ketones Trace (Negative) H 10/28/23 23:30 Urine Nitrite Negative (Negative) 10/28/23 23:30 Ur Leukocyte Esterase Negative (Negative) 10/28/23 23:30 Blood Type B Positive 10/29/23 06:47 Antibody Screen NEGATIVE 10/29/23 06:47
[2023-10-29] MEDS ORDERED: PROPOFOL IV EMULSION 10 MG/ML 20 ML VIAL IV ONE (10:15)
[2023-10-29] MEDS ORDERED: ROCURONIUM BROMIDE 10 MG/ML 5 ML VIAL IV ONE (10:15)
[2023-10-29] MEDS ORDERED: LIDOCAINE 2% 2 ML VIAL/AMP(20MG/ML) INFIL ONE (10:15)
[2023-10-29] MEDS ORDERED: fentaNYL citrate PF 100 MCG/2 ML VIAL ONE (10:16)
--- NOTE | 2023-10-29 10:20 | Electrocardiogram Report ---
Test Reason : Blood Pressure : / mmHG Vent. Rate : 076 BPM Atrial Rate : 000 BPM P-R Int : 000 ms QRS Dur : 088 ms QT Int : 390 ms P-R-T Axes : 000 087 052 degrees QTc Int : 438 ms Atrial fibrillation with premature ventricular or aberrantly conducted complexes Abnormal ECG When compared with ECG of 01-NOV-2022 11:10, No significant change was found Confirmed by Anival Weems ([id number]) on 10/29/2023 10:19:44 AM Referred By: REFERRED SELF Confirmed By:Anival Weems
[2023-10-29] MEDS ORDERED: PROMETHAZINE HCL 6.25 MG in SODIUM CHLORIDE 0.9% 50 ML IV PRN (10:35)
[2023-10-29] MEDS ORDERED: ATROPINE SULFATE 0.1 MG/ML 10ML SYR IV PRN (10:35)
[2023-10-29] MEDS ORDERED: ePHEDrine sulfate 50 MG/ML AMP IV PRN (10:35)
--- NOTE | 2023-10-29 11:13 | Hospitalist Progress Note ---
Date of Service October 29, 2023 Assessment & Plan (1) Acute cholecystitis: Plan 83-year-old male with PMH of chronic diastolic heart failure [2022 TTE with 60% EF], CAD status post CABG/stent, A-fib on Coumadin, HTN, HLD, bipolar disorder, past tobacco abuse presented to the ED with 2-day history of right/central abdominal pain associated with constipation. Denies nausea or vomiting. He was also noted to have increased blood pressure in the ED. Outpatient chart reviewed with creatinine range 1.5-2.0 in 2022 and 2023. He is being managed for the following: Acute cholecystitis Patient came in with complaint of abdominal pain, noted to have cholecystitis and cholelithiasis on CTAP and abdominal US. Patient has been n.p.o., INR 1.5. Discussed with surgery, plan for lap jarad today. Continue with gentle IVF, continue with Zosyn 10/29. Diet after surgery with surgery recommendation. Hypertensive urgency: Likely secondary to acute stress, continue home blood pressure medication, pain management, as needed blood pressure medications. Other chronic medical conditions: Continue with/resume home meds as and when able. chronic diastolic failure (EF 60%, TTE 2022), patient euvolemic to dry hx CAD status post CABG A-fib on Coumadin, INR slightly subtherapeutic hyperlipidemia on statin Rx bipolar disorder, stable on regimen past tobacco abuse DVT prophylaxis. SCDs while Coumadin on hold, resume Coumadin once bleeding risks deemed stable per surgery. Full code Text document was generated using [email or web address] voice recognition software. It may contain grammatical or spelling errors. Kindly contact undersigned for clarification of any documentation item in question. Admission and Anticipated Discharge Date Admission Date: October 28, 2023 Subjective Patient was seen and examined at bedside. Patient was lying in bed, nonverbal, NAD, resting comfortably. Patient denies any shortness of breath, chest pain, cough, headache or dizziness, fevers, any new acute event overnight. Patient reports improvement in his right upper quadrant pain significantly. Patient does have a history of VT in 2011 with stents in the heart, per patient, he never had stroke or blood clot per him. He reports that he has been walking almost about a mile daily without feeling short of breath/chest pain/winded. He is clinically euvolemic. Chest pain-free. Blood pressure under control. INR acceptable range for surgery. He has chronic A-fib, rate under control. He is moderate risk for much needed lap jarad. Physical Exam Physical Exam: GENERAL: Alert and oriented x3. NAD, on RA. HEENT: No pallor, no icterus. Pupils equal, round and reactive to light. Oral mucosa moist. NECK: No JVD, no neck masses. HEART: S1 and S2 heard. irregular rate and rhythm. No murmur, no gallop. RESPIRATORY SYSTEM: Normal AP diameter. No accessory muscle use. No wheezing, no crackles. ABDOMEN: Soft, bowel sounds present, nontender, no distention. CENTRAL NERVOUS SYSTEM: No facial droop. Speech is clear. Obeys simple commands. Moves extremities. EXTREMITIES: No edema, no erythema seen. Results & Data Results & Data Vital Signs (Past 12 Hours) Vital Signs Temp Pulse Pulse Resp BP Pulse Ox Pulse Ox 10/29/23 10:04 36.9 C 79 18 159/101 H 96 10/29/23 07:55 66 10/29/23 06:05 36.8 C 72 26 H 140/73 93 10/29/23 03:12 83 10/29/23 01:32 95 10/29/23 01:32 37.2 C 88 24 138/89 95 10/29/23 00:15 79 10/28/23 23:28 88 22 163/97 H 90 O2 Del Method O2 Del Method 10/29/23 10:04 Room Air 10/29/23 07:55 10/29/23 06:05 Room Air 10/29/23 03:12 10/29/23 01:32 Room Air 10/29/23 01:32 Room Air 10/29/23 00:15 10/28/23 23:28 Room Air
[2023-10-29] MEDS ORDERED: hydrALAZINE HCL 20 MG/ML VIAL IV PRN (11:27)
--- OUTSIDE RECORDS SUMMARY | 2023-10-29 11:50 | External Medical Summary | Summary of Care ---
Author Name Unknown Organization [facility] Address [address] [place] [address] Phone [phone] Care Team Providers Care Parking Regulation Enforcement Officer Name Role Phone Luis Espinoza DO Primary Care Provider [phone] Reason for Visit * Reason Onset Date Comments Test Results 10/16/2023 Encounter Details Date Type Department Care Team (Late st Contact Info) Description 10/16/2023 Telephone Cardiology, [facility] [address] [facility] [place] [address] AnGabi goodman CRNP [address] [facility] [address] Test Results Allergies Active Allergy Reactions Criticality Noted Date Comments Pollen 08/13/2017 Hay fever per patient documented as of this encounter (statuses as of 10/16/2023) Medications Medication Sig Dispensed Refills Start Date End Date Status aspirin 81 MG chewable tablet mornings 0 Active latanoprost (XALATAN) 0.005 % ophthalmic solution Instill 1 Drop into both eyes at bedtime. 1 drop, left eye only, bedtime 0 Active Vitamin D 50 MCG (2000 UT) Oral Capsule Take 2,000 Units by mouth at bedtime. 0 10/09/2020 Active Potassium Citrate ER 15 MEQ (1620 MG) Oral Tablet Extended Release Take by mouth 1 Tablet daily . 0 09/18/2021 Active Triamcinolone Acetonide 0.1 % External Cream (Aristocort)Indicat ions:Stasis dermatitis of both legs Apply to affected areas on legs twice daily as needed 80 g 0 05/24/2022 Active Fluorouracil 5 % External Cream (Efudex) Apply topically to affected area 2 times a day . apply to affected area. 40 g 0 05/27/2022 Active Fungi-Nail 25 % External Solution (Undecylenic Acid) Apply topically to affected area . 0 Active Timolol Hemihydrate 0.5 % Ophthalmic Solution (Betimol) Instill 1 Drop into the left eye in the morning. 0 06/11/2022 Active Meclizine HCl 25 MG Oral Tablet (Antivert) Take 1 Tablet by mouth 3 times a day as needed. 0 Active carBAMazepine ER 300 MG Oral Capsule Extended Release 12 Hour (Carbatrol) take 1 tablet by mouth at bedtime 90 Capsule 3 12/18/2022 Active Ketoconazole 2 % External Shampoo (Nizoral) Apply to scalp (as shampoo) and behind ears and back of neck, lather, wait 5 min, then rinse 120 mL 0 03/19/2023 Active amLODIPine Besylate 10 MG Oral Tablet (Norvasc)Indication s:History of NV (myocardial infarction) Take 1 Tablet by mouth in the morning. 90 Tablet 3 03/21/2023 Active Additional Information Patient taking differently:10 mg OralDaily(Non-Specified), In evening, Reported on 10/15/2023 Rosuvastatin Calcium 40 MG Oral Tablet (Crestor)Indication s:S/P CABG (coronary artery bypass graft),ST elevation myocardial infarction (STEMI), unspecified artery (HCC) take 1 tablet by mouth once daily with dinner 90 Tablet 3 05/12/2023 Active Warfarin Sodium 2 MG Oral Tablet (Coumadin)Indicatio ns:Chronic atrial fibrillation (HCC) TAKE 1 TABLET BY MOUTH DAILY FRIDAY, FRIDAY,FRIDAY AND 2 TABLETS ALL OTHER DAYS OR DIRECTED BY COAG CLINIC 132 Tablet 3 08/11/2023 Active Carvedilol 6.25 MG Oral Tablet (Coreg) Take 1 Tablet by mouth in the morning and 1 Tablet before bedtime. 180 Tablet 3 10/14/2023 Active Lisinopril 20 MG Oral Tablet (Prinivil)Indicatio ns:S/P CABG (coronary artery bypass graft),ST elevation myocardial infarction (STEMI), unspecified artery (HCC) Take 1 Tablet by mouth in the morning. 90 Tablet 3 10/14/2023 Active Loratadine 10 MG Oral Capsule Take 1 Capsule by mouth in the morning. 0 Active documented as of this encounter (statuses as of 10/16/2023) Active Problems Problem Noted Date Diagnosed Date Permanent atrial fibrillation 09/23/2023 Bipolar 1 disorder 02/12/2023 Inguinal hernia of left side without obstruction or gangrene 09/03/2022 Hypertension 09/03/2022 Chronic atrial fibrillation 02/28/2020 History of NV (myocardial infarction) 05/23/2017 History of nonmelanoma skin cancer 04/22/2017 Overview: 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 cheek - 2015 Hx of BCC on left cheek - 2014 Coronary artery disease invo lving [place] coronary artery of [place] heart without angina pectoris 11/19/2016 History of basal cell carcinoma of skin 05/24/20 15 documented as of this encounter (statuses as of 10/16/2023) Resolved Problems Problem Noted Date Diagnosed Date Resolved Date Chronic kidney disease, stage 3a 11/12/2021 08/13/2022 Overview: Per CKD protocol Prediabetes 12/09/2017 06/02/2018 Overview: Per Prediabetes protocol #1 Chronic atrial fibrillation 11/25/2017 12/01/2018 History of NV (myocardial infarction) 05/23/2017 05/23/2017 Paroxysmal atrial fibrillation 05/24/2015 10/04/2021 Bipolar disorder, in full re mission, most recent episode depressed 05/24/2015 02/12/2023 Atrial fibrillation and flutter 05/24/2015 S/P CABG (coronary artery bypass graft) 05/23/2017 NV (myocardial infarction) 0 05/23/2017 Overview: 3 in 2011 - stents and an ablation done Manic episode 11/19/2016 Bipolar disorder (manic depression) 05/24/2015 documented as of this encounter (statuses as of 10/16/2023) Immunizations Name Administration Dates Next Due COVID-19 mRNA, LNP-s, No Pre serve, 2-Dose Series (Moderna) 10/30/2020,09/27/2020 COVID-19, mRNA, LNP-s, PF, B ooster, 100mcg/0.5mg (Moderna) 07/04/2021 Covid-19, Mrna, Lnp-s, Pf, B ivalent, 30 Mcg, IM, 12 yrs and above (Pfizer) 11/15/2022 H1N1 2009 Influenza, IM 09/04/2009 HEP A - Hepatitis A (Adult > 18 yrs) 04/07/2006, 09/23/2005 Pneumococcal Conjugate Vacc, 13 Valent (Prevnar) 05/21/2016 Pneumococcal Polysaccharide PPV23 (Pneumovax) 10/24/2009,08/08/2004 Season Influenza, Quad, PF, Adjuvanted, 65+ Yrs, IM (FLUAD) 06/27/2021,06/30/2020 Seasonal Influenza, PF, 6 M & above, IM , (FluLaval or Fluzone) 06/02/2018 Seasonal Influenza, Quadriva lent Hd (Fluzone Hd) 07/05/2022 Seasonal Influenza, Quadriva lent, No Preserve, IM 05/21/2016,06/26/2015 Seasonal Influenza, Split, I IV3, With Preserve, Inj 06/01/2014,06/28/2013,05/05/2010,06/11,08/08/2004 Seasonal Influenza, Trivalen t, High Dose, No Preserve, IM 05/23/2017 TDAP (age 10 and older)(Boostrix) 12/26/2020 TDAP (age 11 and older)(Adacel) 11/16/2010 Varicella Zoster Vaccine (Adult) 12/17/2011 Zoster Vaccine Recombinant (Shingrix) 09/30/2018 ,07/10/2018 documented as of this encounter Social History Tobacco Use Types Packs/Day Years Used Date Smoking Tobacco: Former Cigarettes 0.5 3 Smokeless Tobacco: Never Alcohol Use Standard Drinks/Week Comments Yes 0 (1 standard drink = 0.6 oz pur e alcohol) rare PHQ-2 Answer Date Recorded PHQ-2 Score 0 06/30/2020 Sex and Gender Information Value Date Recorded Sex Assigned at Not on file Gender Identity Not on file Sexual Orientation Not on file Job Start Date Occupation Industry Not on file Not on file Not on file documented as of this encounter Miscellaneous Notes * Telephone Encounter - МаринаLuis Enrique reyes LPN - 10/16/2023 10:27 AM EST Sent patient a Applyfulhart message to make aware. BMP order from PCP already placed. ----- Message from MARICARMEN Henriquez sent at 10/15/2023 1:31 PM EST ----- Renal function continues to improve with med changes. No further med changes needed at this time. Repeat BMP a few days prior to follow up so further changes can be made in office. MARICARMEN Simon documented in this encounter Plan of Treatment Upcoming Encounters Date Type Department Care Team (Latest Contact Info) Description 4 8:45 AM EST Hospital Encounter ENDO [facility], Endoscopy Room [facility] [address] [place] [phone] Sylvia Horta, DO [address] [place] [address] 4 8:45 AM EST - 4 9:30 AM EST Surgery ENDO [facility], Endoscopy Room [facility] [address] [place] [phone] Sylvia Horta, [address] [place] [address] ESOPHAGOGASTRODUODENOSCOPY (EGD), FLEXIBLE, TRANSORAL, ENDOSCOPIC ULTRASOUND 4 9:20 AM EST Anticoagulation Pharmacy, [facility] [address] [facility] [place] [address] Pharmacist1, [facility] [address] [facility] [place] [address] 4 3:30 PM EDT Office Visit Cardiology, [facility] [address] [place] [address] Gabi Nolan CRNP [address] [place] [address] 4 2:00 PM EDT Office Visit Dermatology [facility] Jodee [place] [address] [facility] [place] [address] Lorenzo Hoyt MD [address] [facility] [place] [address] 4 10:20 AM EDT Office Visit Family Practice [facility] [place] [address] [facility] [place] [address] Luis Espinoza DO [address] [facility] [place] [address] Scheduled Procedures Name Priority Associated Diagnoses Date/Ti me ESOPHAGOGASTRODUODENOSCOPY ( EGD), FLEXIBLE, TRANSORAL, ENDOSCOPIC ULTRASOUND Pancreatic cyst 10/22/2023 8:45 AM EST Health Maintenance Due Date Last Done Comments Depression Screening 08/11/2021 08/11/2020 COVID-19 Vaccine (2022- season) 2023 11/15/2022, 07/04/2021, 10/30/2020, Additional history exists GFR 10/15/2024 10/15/2023, 04/2024, 10/01/2023, Additional history exists Albumin/Creatinine Ratio 03/20/2026 03/20/2023 DTaP,Tdap,and Td Vaccines (3 - Td or Tdap) 12/26/2030 12/26/2020, 11/16/2010 Pneumococcal Vaccine: 65+ Years Completed 05/21/2016, 10/24/2009, 08/08/2004 Zoster Vaccines Completed 09/30/2018, 05/2018, 12/17/2011 COLONOSCOPY-EVERY 3 YRS AGES 18-100 Discontinued 08/19/2022, 08/19/2022, 12/30/2018, Additional history exists Influenza Vaccine (FLU shot) Completed 07/30/2023, 07/05/2022, 06/27/2021, Additional history exists GARDASIL-HPV IMMUNIZATION SERIES Aged Out No longer eligible based on patient's age to complete this topic Hepatitis B Aged Out No longer eligi ble based on patient's age to complete this topic MENINGOCOCCAL (MENACTRA/MENVEO) Aged Out No longer eligible based on patient's age to complete this topic documented as of this encounter Medical Devices Implanted Type Area Dairy Farmworker Device Identifier Shelf Expiration Date Model / Serial / Lot Clip Quick 2.8mm 230cm - [id number] Implanted:Qty: 1 on 08/19/2022 by Jojo Pearson MD at ENDOSCOPY [facility] Fur and Mask [facility] 12/29/2024 [id number] / / [id number] documented as of this encounter Advance Directives Documents on File Type Date Recorded Patient Moving Picture Producer Expl anation Advance Directives and Living Will 09/28/2016 LIVING WILL Care Teams Parking Regulation Enforcement Officer Relationship Specialty Start Date End Date Luis Espinoza DO [address] [place] [address] PCP - General Family Medicine 02/16/17 documented as of this encounter
--- OUTSIDE RECORDS SUMMARY | 2023-10-29 11:50 | External Medical Summary | Summary of Care ---
Author Name Unknown Organization [facility] Address [address] [place] [address] Phone [phone] Care Team Providers Care Window Machine Operator Name Role Phone Luis Espinoza DO Primary Care Provider [phone] Reason for Visit * Auth/Cert Specialty Diagnoses / Procedures Referred By Gayathri rios Referred To Contact Diagnoses Pancreatic cyst Pancreatic cyst [K86.2] Procedures EGD, W/ENDOSCOPIC US ESOPHAGOGASTRODUODENOSCOPY (EGD), FLEXIBLE, TRANSORAL, ENDOSCOPIC ULTRASOUND Referral ID Status Reason Start Date Expiration Date Visits Re quested Visits Authorized [id number] Encounter Details Date Type Department Care Team (Latest Contact Info) Description 10/22/2023 8:24 AM EST - 10/22/2023 10:39 AM [facility] Hospital Encounter ENDO [facility], Endoscopy Room [facility] [address] [place] [phone] Sylvia Horta DO [address] [place] [phone] Various: UGI,UEUS Discharge Disposition: Home - Self Care Allergies Active Allergy Reactions Criticality Noted Date Comments Pollen 08/13/2017 Hay fever per patient documented as of this encounter (statuses as of 10/22/2023) Medications Medication Sig Dispensed Refills Start Date [...] 10 MG Oral Tablet (Norvasc)Indication s:History of TX (myocardial infarction) Take 1 Tablet by mouth [...] by mouth in the morning. 0 Active Ciprofloxacin HCl 500 MG Oral Tablet (Cipro) Take 1 Tablet by mouth in the morning and 1 Tablet before bedtime. 10 Tablet 0 10/22/2023 Active documented as of this encounter (statuses as of 10/22/2023) Active Problems Problem Noted Date Diagnosed Date Permanent atrial fibrillation 09/23/2023 Bipolar 1 disorder 02/12/2023 Inguinal hernia of left side without obstruction or gangrene 09/03/2022 Hypertension 09/03/2022 Chronic atrial fibrillation 02/28/2020 History of TX (myocardial infarction) 05/23/2017 History of nonmelanoma skin cancer 04/22/2017 Overview: 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 cheek - 2015 Hx of BCC on left cheek - 2014 Coronary artery disease invo lving [place] coronary artery of [place] heart without angina pectoris 11/19/2016 History of basal cell carcinoma of skin 05/24/20 15 documented as of this encounter (statuses as of 10/22/2023) Resolved Problems Problem Noted Date Diagnosed Date Resolved Date Chronic kidney disease, stage 3a 11/12/2021 08/13/2022 Overview: Per CKD protocol Prediabetes 12/09/2017 06/02/2018 Overview: Per Prediabetes protocol #1 Chronic atrial fibrillation 11/25/2017 12/01/2018 History of TX (myocardial infarction) 05/23/2017 05/23/2017 Paroxysmal atrial fibrillation 05/24/2015 10/04/2021 Bipolar disorder, in full re mission, most recent episode depressed 05/24/2015 02/12/2023 Atrial fibrillation and flutter 05/24/2015 S/P CABG (coronary artery bypass graft) 05/23/2017 TX (myocardial infarction) 0 05/23/2017 Overview: 3 in 2011 - stents and an ablation done Manic episode 11/19/2016 Bipolar disorder (manic depression) 05/24/2015 documented as of this encounter (statuses as of 10/22/2023) Immunizations Name Administration Dates Next Due COVID-19 mRNA, LNP-s, No Pre serve, 2-Dose Series (Moderna) 10/30/2020,09/27/2020 COVID-19, mRNA, LNP-s, PF, B ooster, 100mcg/0.5mg (Moderna) 07/04/2021 Covid-19, Mrna, Lnp-s, Pf, B ivalent, 30 Mcg, IM, 12 yrs and above (SimpliVity) 11/15/2022 H1N1 2009 Influenza, IM 09/04/2009 HEP [...] on file documented as of this encounter Last Filed Vital Signs Vital Sign Reading Time Taken Comments Blood Pressure 139/63 10/22/2023 10:25 AM EST Pulse 62 10/22/2023 10:25 AM EST Temperature 36.3 C (97.4 F) 10/22/2023 9:36 AM ES T Respiratory Rate 18 10/22/2023 10:25 AM EST Oxygen Saturation 99% 10/22/2023 10:25 AM EST Inhaled Oxygen Concentration - - Weight 62.1 kg (137 lb) 10/22/2023 8:42 AM EST Height 167 cm (5' 5.75") 10/22/2023 8:42 AM EST Body Mass Index 22.28 10/22/2023 8:42 AM EST documented in this encounter H&P Notes * Sylvia Horta, DO - 10/22/2023 8:53 AM EST Endoscopy Pre-Procedure Assessment Name: Andrade Mcfarlane Date: 10/22/2023 Time: 8:53 AM Procedure(s): Upper GI Endoscopy; with Indication(s) of evaluation of abnormal radiologic study Endoscopic Ultrasound; with Indication(s) of evaluation and management of pancreatic cysts Endoscopy Pre-Procedure Assessment: Prior to the procedure, the patient is identified. The patient's history, medications and allergieshave been reviewed. The patient is competent. The risks and benefits of the proposed procedure and the planned sedation have been discussed with the patient. All questions have been answered and informed consent for the procedure has been obtained. Prior to Admission medications Medication Sig Last Dose Discont. Loratadine 10 MG Oral Capsule Take 1 Capsule by mouth in the morning. Past Week Carvedilol 6.25 MG Oral Tablet (Coreg) Take 1 Tablet by mouth in the morning and 1 Tablet before bedtime. 10/22/2023 Lisinopril 20 MG Oral Tablet (Prinivil) Take 1 Tablet by mouth in the morning. 10/21/2023 Warfarin Sodium 2 MG Oral Tablet (Coumadin) TAKE 1 TABLET BY MOUTH DAILY FRIDAY, FRIDAY,FRIDAY AND 2 TABLETS ALL OTHER DAYS OR DIRECTED BY COAG CLINIC Past Week Rosuvastatin Calcium 40 MG Oral Tablet (Crestor) take 1 tablet by mouth once daily with dinner 10/21/2023 amLODIPine Besylate 10 MG Oral Tablet (Norvasc) Take 1 Tablet by mouth in the morning. Patient taking differently: Take 1 Tablet by mouth daily. In evening 10/21/2023 Ketoconazole 2 % External Shampoo (Nizoral) Apply to scalp (as shampoo) and behind ears and back jarred rios, wait 5 min, then rinse Past Week carBAMazepine ER 300 MG Oral Capsule Extended Release 12 Hour (Carbatrol) take 1 tablet by mouth atbedtime 10/21/2023 Timolol Hemihydrate 0.5 % Ophthalmic Solution (Betimol) Instill 1 Drop into the left eye in the morning. 10/22/2023 Triamcinolone Acetonide 0.1 % External Cream (Aristocort) Apply to affected areas on legs twice daily as needed Past Week Potassium Citrate ER 15 MEQ (1620 MG) Oral Tablet Extended Release Take by mouth 1 Tablet daily . 10/21/2023 Vitamin D 50 MCG (2000 UT) Oral Capsule Take 2,000 Units by mouth at bedtime. Past Week aspirin 81 MG chewable tablet mornings Past Week latanoprost (XALATAN) 0.005 % ophthalmic solution Instill 1 Drop into both eyes at bedtime. 1 drop,left eye only, bedtime 10/21/2023 Sildenafil Citrate 50 MG Oral Tablet (Viagra) Take 1 Tablet by mouth once for 1 dose. 1-4 hours before intercourse, no more than 1 dose in 24 hours. Meclizine HCl 25 MG Oral Tablet (Antivert) Take 1 Tablet by mouth 3 times a day as needed. Over 30 Days Fungi-Nail 25 % External Solution (Undecylenic Acid) Apply topically to affected area . Fluorouracil 5 % External Cream (Efudex) Apply topically to affected area 2 times a day . apply to affected area. Over 30 Days Review of patient's allergies indicates: Allergen Reactions Environmental [Pollen] Hay fever per patient BP 163/80 | Pulse 80 | Temp 36.1 C (97 F) (Tympanic) | Resp 18 | Ht 1.67 m (5' 5.75") | Wt 62.1kg (137 lb) | SpO2 98% | BMI 22.28 kg/m | BSA 1.7 m Physical Exam: Mental Status Examination: alert and oriented. Airway Examination: normal oropharyngeal airway and neck mobility. Respiratory Examination: clear to auscultation. CV Examination: systolic murmur. ASA Grade: III - A patient with severe systemic disease. Abdomen: soft Latest Reference Range & Units 10/04/21 10:48 WBC 4.00 - 10.80 K/uL 13.57 (H) HGB 14.0 - 16.8 g/dL 15.8 HCT 40.0 - 48.4 % 49.3 (H) MCV 82.0 - 99.5 fL 90.8 PLT 140 - 400 K/uL 562 (H) (H): Data is abnormally high Latest Reference Range & Units 10/01/23 08:13 10/09/23 11:45 10/15/23 10:27 Sodium 135 - 146 mmol/L 142 141 145 Potassium 3.5 - 5.1 mmol/L 4.9 5.1 4.9 Chloride 98 - 107 mmol/L 104 103 107 CO2 22 - 32 mmol/L 25 29 26 BUN 6 - 20 mg/dL 46 (H) 34 (H) 30 (H) Creatinine 0.6 - 1.2 mg/dL 2.0 (H) 1.7 (H) 1.5 (H) Estimated Glomerular Filtration Rate >=60 mL/min 32 (L) 40 (L) 46 (L) Anion Gap 7 - 15 mmol/L 13 9 12 Glucose 70 - 120 mg/dL 103 102 175 (H) Calcium 8.4 - 10.2 mg/dL 9.8 9.5 9.1 Protein 6.0 - 8.3 g/dL 7.1 Lipase 13 - 60 U/L 1,397 (H) Albumin 3.8 - 5.0 g/dL 4.5 AST 10 - 50 U/L 27 ALT 10 - 50 U/L 21 Alkaline Phosphatase 35 - 130 U/L 112 Bilirubin, Total <=1.2 mg/dL 0.3 (H): Data is abnormally high (L): Data is abnormally low MRI 10/09/23 LIVER: The liver is normal in size, morphology, and signal intensity. There are few subcentimeter hepatic cysts. BILIARY TREE: No intrahepatic or extrahepatic bile duct dilation. No bile duct filling defect. GALLBLADDER: Cholelithiasis. No evidence of acute cholecystitis. 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 There is a 1.5 x 1.8 cm nodular region in the uncinate process as on recent CT without definite mass (image 71 series 19). This could represent prominent normal parenchyma in background of mild pancreatic atrophy and fatty infiltration. There is no main pancreatic duct dilation. Ct Sep 2023 LIVER: Unremarkable BILE DUCTS: Unremarkable GALLBLADDER: Cholelithiasis. PANCREAS: There is coarse calcification in the pancreatic head. Tissue at the caudal aspect of the pancreatic head appears to be diffusely hyperdense of somewhat heterogeneous. It measures 1.2 x 2.0 x 1.3 cm (image 79 series 4). SPLEEN: Unremarkable This patient has undergone a preprocedural evaluation. A determination has been made to proceed with the planned procedure under [facility] procedural guidelines and the [facility] Non-Emergent, Elective Medical Services and Treatment Recommendations (published on 12-07-19). The community and hospital prevalence of COVID-19 has been discussed as well as this patient's specific risks associated with SARS-CoV-19 infection. Based upon the clinical acuity and patient-specific care considerations, this procedure is deemed a Tier II - Intermediate acuity treatment or service with either progression or the threat of progressive disease related to the delay in treatment. Not providing the service has the potential for increasing morbidity or mortality. After reviewing the risks and benefits, the patient is deemed in satisfactory condition to undergo the procedure. The anesthesia plan is to use general anesthesia. We have discussed the risks and benefits of upper endoscopy to include bleeding, infection, perforation, discomfort, aspiration and need for follow-up studies. I have discussed the risks and benefits of EUS to include (not limited to) bleeding, infection, perforation, pain, aspiration, cardiac complications, pancreatitis and insufficient cellularity. Sylvia Horta DO 10/22/2023 documented in this encounter Procedure Notes * Luis Espinoza DO - 10/22/2023 9:16 AM ESTAssociated Order(s): UPPER ENDOSCOPIC U/S [facility] [address] Patient Name: Andrade Mcfarlane Procedure Date: 10/22/2023 9:16 AM Date of : 1940 Admit Type: Outpatient Note Status: Finalized Date of : 1940 Admit Type: Outpatient Age: 83 Room: Advanced Endo Gender: Male Note Status: Finalized Procedure: Upper EUS Indications: Pancreatic cyst on CT scan, Pancreatic cyst on MRI Providers: Sylvia Horta DO (Doctor) Referring MD: Luis Espinoza DO (Referring MD) Medicines: General Anesthesia Complications: No immediate complications. Estimated blood loss: Minimal. Procedure: Pre-Anesthesia Assessment: - Prior to the procedure, a History and Physical was performed, and patient medications, allergies and sensitivities were reviewed. The patient's tolerance of previous anesthesia was reviewed. - The risks and benefits of the procedure and the sedation options and risks were discussed with the patient. All questions were answered and informed consent was obtained. - Patient identification and proposed procedure were verified prior to the procedure by the physician, the nurse and the principle industrial hygienist. The procedure was verified in the procedure room. - Pre-procedure physical examination revealed no contraindications to sedation. - ASA Grade Assessment: III - A patient with severe systemic disease. - After reviewing the risks and benefits, the patient was deemed in satisfactory condition to undergo the procedure. - The anesthesia plan was to use general anesthesia. - Immediately prior to administration of medications, the patient was re- assessed for adequacy to receive sedatives. - The heart rate, respiratory rate, oxygen saturations, blood pressure, adequacy of pulmonary ventilation, and response to care were monitored throughout the procedure. - The physical status of the patient was re-assessed after the procedure. After obtaining informed consent, the endoscope was passed under direct vision. All instruments were visually inspected immediately before and after removal from the patient to ensure they are fully intact. Throughout the procedure, the patient's blood pressure, pulse, and oxygen saturations were monitored continuously. The Endoscope was introduced through the mouth, and advanced to the second part of duodenum. The upper EUS was accomplished without difficulty. The patient tolerated the procedure well. Findings & Specimens: ENDOSONOGRAPHIC FINDING: : There was no sign of significant endosonographic abnormality in the ampulla. No pathologic lymphadenopathy and no masses were identified. There was no sign of significant endosonographic abnormality in the common bile duct. The maximum diameter of the duct was 5 mm. No stones, no biliary sludge and ducts of normal caliber were identified. Multiple stones were visualized endosonographically in the gallbladder. The stones measured up to 5mm in greatest dimension. They were hyperechoic and characterized by shadowing. There was no sign of significant endosonographic abnormality in the visualized portion of the liver. Homogeneous parenchyma, no focal pathology, no pathologic lymphadenopathy and no masses were identified. No lymphadenopathy seen. There was no sign of significant endosonographic abnormality in the left adrenal gland. No adrenal gland enlargement was identified. There was no sign of significant endosonographic abnormality in the pancreatic body, pancreatic tail and main pancreatic duct. The pancreatic duct measured up to 2 mm in diameter. No masses, no cysts,no calcifications, the pancreatic duct was thin in caliber. A hypoechoic lesion suggestive of a cyst was identified in the pancreatic head. It is not in obvious communication with the pancreatic duct. The lesion measured 10 mm by 9 mm in maximal cross-sectional diameter. There was a single compartment without septae. The outer wall of the lesion was not seen. There was no associated mass. There was no internal debris within the fluid- filled cavity. Diagnostic needle aspiration for fluid was performed. Color Doppler imaging was utilized prior to needle puncture to confirm a lack of significant vascular structures within the needle path. One pass was made withthe 22 gauge needle using a transduodenal approach. A stylet was used. The amount of fluid collected was 0.7 mL. The fluid was clear, serous and watery. Sample(s) were sent for cytology. Estimated blood loss was minimal. Impression: - There was no sign of significant pathology in the ampulla. - There was no sign of significant pathology in the common bile duct. - Multiple stones were visualized endosonographically in the gallbladder. - There was no evidence of significant pathology in the visualized portion of the liver. - Endosonographic images of the left adrenal gland were unremarkable. - There was no sign of significant pathology in the pancreatic body, pancreatic tail and main pancreatic duct. - A cystic lesion was seen in the pancreatic head. Fine needle aspiration for fluid performed. Recommendation: - The patient will be observed post-procedure, until all discharge criteria are met. - Advance diet as tolerated today. - Await cytology results. - Cipro (ciprofloxacin) 500 mg PO BID for 5 days. - Perform magnetic resonance imaging (MRI) with gadolinium in 1 year. - Refer to a surgeon at appointment to be scheduled to discuss cholecystectomy. Sylvia Horta DO 10/22/2023 9:48:18 AM This report has been signed electronically. * Luis Espinoza DO - 10/22/2023 9:09 AM ESTAssociated Order(s): UPPER GI ENDOSCOPY [facility] [address] Patient Name: Andrade Mcfarlane Procedure Date: 10/22/2023 9:09 AM Date of : 1940 Admit Type: Outpatient Note Status: Finalized Date of : 1940 Admit Type: Outpatient Age: 83 Room: [facility] Gender: Male Note Status: Finalized Procedure: Upper GI endoscopy Indications: Abnormal CT of the GI tract, Abnormal MRI of the GI tract Providers: Sylvia Horta DO (Doctor) Referring MD: Luis Espinoza DO (Referring MD) Medicines: General Anesthesia Complications: No immediate complications. Estimated blood loss: Minimal. Procedure: Pre-Anesthesia Assessment: - Prior to the procedure, a History and Physical was performed, and patient medications, allergies and sensitivities were reviewed. The patient's tolerance of previous anesthesia was reviewed. - The risks and benefits of the procedure and the sedation options and risks were discussed with the patient. All questions were answered and informed consent was obtained. - Patient identification and proposed procedure were verified prior to the procedure by the physician, the nurse and the principle industrial hygienist. The procedure was verified in the procedure room. - Pre-procedure physical examination revealed no contraindications to sedation. - ASA Grade Assessment: III - A patient with severe systemic disease. - After reviewing the risks and benefits, the patient was deemed in satisfactory condition to undergo the procedure. - The anesthesia plan was to use general anesthesia. - Immediately prior to administration of medications, the patient was re- assessed for adequacy to receive sedatives. - The heart rate, respiratory rate, oxygen saturations, blood pressure, adequacy of pulmonary ventilation, and response to care were monitored throughout the procedure. - The physical status of the patient was re-assessed after the procedure. After obtaining informed consent, the endoscope was passed under direct vision. All instruments were visually inspected immediately before and after removal from the patient to ensure they are fully intact. Throughout the procedure, the patient's blood pressure, pulse, and oxygen saturations were monitored continuously. The GIF-H180 Endoscope ([id number]) was introduced through the mouth, and advanced to the second part of duodenum. The upper GI endoscopy was accomplished without difficulty. The patient tolerated the procedure well. Findings & Specimens: The examined esophagus was normal. The Z-line was regular and was found 40 cm from the incisors. Diffuse mild inflammation characterized by congestion (edema), erythema and granularity was found in the entire examined stomach. Biopsies were taken with a cold forceps for histology. The pathology specimen was placed into Bottle Number 1. Estimated blood loss was minimal. The examined duodenum was normal. Impression: - Normal esophagus. - Z-line regular, 40 cm from the incisors. - Mild Gastritis (likely medication related). Biopsied. - Normal examined duodenum. Recommendation: - Perform an upper endoscopic ultrasound (UEUS) today. - Await pathology results. Sylvia Horta DO 10/22/2023 9:16:31 AM This report has been signed electronically. documented in this encounter Nursing Notes * Yumiko Goel RN - 10/22/2023 10:36 AM EST Patient is alert, pain free, passing flatus and tolerating po fluids prior to discharge. Patient has been visited by Dr. Sylvia Horta. Patient has received and demonstrates understanding of discharge instructions. Patient is transported via w/c to private auto accompanied by endo staff. * Yumiko Goel RN - 10/22/2023 10:18 AM EST D/C instructions given to pt and spouse, verbalized understanding. * Yumiko Goel RN - 10/22/2023 10:05 AM EST Pt sitting up tolerating PO fluids, spouse at BS. * Yumiko Goel RN - 10/22/2023 9:54 AM EST Pt awake, Dr Horta in with pt.discussing results of procedure. * Yumiko Goel RN - 10/22/2023 9:36 AM EST Received pt, sleeping. VSS, CM shows Controlled A-Fib. Reort given by Derik JAIN. * Karie Wang RN - 10/22/2023 9:34 AM EST Specimen(s) and location(s) verified with physician post procedure 9:37 AM Karie Wang RN Pt murali EGD w/ bx and EUS w/ FNA pancreatic head cyst well. Cyst aspirated using a 22g Shark core needle. Abd soft post proc. To recovery lying on L side w/ HOB elevated. Pre cleaning of scope at the bedside started by park maintenance technician. * Florence Webb RN - 10/22/2023 8:52 AM EST Patient prepped and ready for procedure. Call crabtree in reach. * Florence Webb RN - 10/22/2023 8:27 AM EST The following pt discharge instructions reviewed with pt prior to prodedure: No driving today. No alcohol today. No signing of legal documents. Rest as much as possible today and can return to normal activities tomorrow. No operating any heavy equipment today. Diet as tolerated. Pt verbalized understanding. documented in this encounter Plan of Treatment Upcoming Encounters Date Type Department Care Team (Late st Contact Info) Description 11/05/2023 9:20 AM EST Anticoagulation Pharmacy, [facility] [address] [facility] [place] [id number] Pharmacist1, [facility] [address] [facility] [place] [address] 11/14/2023 3:30 PM EDT [facility] [address] [facility] [address] Gabi Nolan CRNP [address] [facility] [address] 04/14/2024 10:20 AM EDT Office Visit Family Practice [facility] [address] [facility] [place] [address] Luis Espinoza DO [address] [facility] [place] [id number] Pending Results Name Type Priority Associated Diagnoses Date /Time CYTOLOGY Pathology Routine 10/22/2023 9:3 8 AM EST SURGICAL PATHOLOGY Pathology Routine Pancreatic cyst 10/22/2023 9:17 AM EST MYGENVARCYTO PANCREATIC CYST AND BILE DUCT FLUID GENE PANEL, NEXT GENERATION SEQUENCING Lab STAT 10/22/2023 9:38 AM EST Scheduled Orders Name Type Priority Associated Diagnoses Orde r Schedule CYTOLOGY Pathology Routine One Time for 1 Occurrences starting 10/22/2023 until 10/22/2023, 1 completed SURGICAL PATHOLOGY Pathology Routine Pancreatic cyst Release Upon Ordering for 1 Occurrences starting 10/22/2023, 1 completed MYGENVARCYTO PANCREATIC CYST AND BILE DUCT FLUID GENE PANEL, NEXT GENERATION SEQUENCING Lab STAT One Time f or 1 Occurrences starting 10/22/2023 until 10/22/2023, 1 completed Scheduled Procedures Name Priority Associated Diagnoses Date/Ti me ESOPHAGOGASTRODUODENOSCOPY ( EGD), FLEXIBLE, TRANSORAL, ENDOSCOPIC ULTRASOUND Pancreatic cyst 10/22/2023 9:06 AM EST Health Maintenance Due Date Last [...] this encounter Medical Devices Implanted Type Area Land Examiner Device Identifier Shelf Expiration Date Model / Serial / Lot Clip Quick 2.8mm 230cm - [id number] Implanted:Qty: 1 on 08/19/2022 by Jojo Pearson MD at ENDOSCOPY [facility] [id number] 12/29/2024 HX-202UR.A / / 25K Clip Quick 2.8mm 230cm - [id number] Implanted:Qty: 1 on 08/19/2022 by Jojo Pearson MD at ENDOSCOPY [facility] [employer] 12/29/2024 HX-UR.A / / 25K Clip Quick 2.8mm 230cm - [id number] Implanted:Qty: 1 on 08/19/2022 by Jojo Pearson MD at ENDOSCOPY [facility] [employer] 12/29/2024 HX-UR.A / / 25K Clip Quick 2.8mm 230cm - [id number] Implanted:Qty: 1 on 08/19/2022 by Jojo Pearson MD at ENDOSCOPY [facility] Colon [employer] 12/29/2024 HX-UR.A / / 25K Clip Quick 2.8mm 230cm - [id number] Implanted:Qty: 1 on 08/19/2022 by Jojo Pearson MD at ENDOSCOPY [facility] Colon [employer] 12/29/2024 HX-UR.A / / 25K Clip Quick 2.8mm 230cm - [id number] Implanted:Qty: 1 on 08/19/2022 by Jojo Pearson MD at ENDOSCOPY [facility] Colon [employer] [employer] 12/29/2024 HX-UR.A / / 25K documented as of this encounter Procedures Procedure Name Priority Date/Time Associated Diagnosis Comments UPPER ENDOSCOPIC U/S 10/22/2023 9:16 AM EST UPPER GI ENDOSCOPY 10/22/2023 9: 09 AM EST documented in this encounter Results * UPPER ENDOSCOPIC U/S (10/22/2023 9:16 AM EST) 10/22/2023 9:16 AM EST Narrative Procedure Note Luis Espinoza DO - 10/22/2023 9:16 AM EST [facility] [address] Patient Name: Andrade Mcfarlane Procedure Date: 10/22/2023 9:16 AM Date of : 1940 Admit Type: Outpatient Note Status:Finalized Date of : 1940 Admit Type: Outpatient Age: 83 Room: Advanced Endo Gender: Male Note Status: Finalized Procedure: Upper EUS Indications: Pancreatic cyst on CT scan, Pancreatic cyst onMRI Providers: Sylvia Horta DO (Doctor) Referring MD: Luis Espinoza DO (Referring MD) Medicines: General Anesthesia Complications: No immediate complications. Estimated blood loss:Minimal. Procedure: Pre-Anesthesia Assessment: - Prior to the procedure, a History and Physicalwas performed, and patient medications, allergies and sensitivities werereviewed. The patient's tolerance of previous anesthesia was reviewed. - The risks and benefits of the procedure and thesedation options and risks were discussed with the patient. All questions wereanswered and informed consent was obtained. - Patient identification and proposed procedurewere verified prior to the procedure by the physician, the nurse and the principle industrial hygienist.The procedure was verified in the procedure room. - Pre-procedure physical examination revealed nocontraindications to sedation. - ASA Grade Assessment: III - A patient with severesystemic disease. - After reviewing the risks and benefits, thepatient was deemed in satisfactory condition to undergo the procedure. - The anesthesia plan was to use generalanesthesia. - Immediately prior to administration ofmedications, the patient was re-assessed for adequacy to receive sedatives. - The heart rate, respiratory rate, oxygensaturations, blood pressure, adequacy of pulmonary ventilation, and response to care weremonitored throughout the procedure. - The physical status of the patient wasre-assessed after the procedure. After obtaining informed consent, the endoscope waspassed under direct vision. All instruments were visually inspected immediatelybefore and after removal from the patient to ensure they are fully intact. Throughout the procedure, the patient's bloodpressure, pulse, and oxygen saturations were monitored continuously. The Endoscope wasintroduced through the mouth, and advanced to the second part of duodenum. The upperEUS was accomplished without difficulty. The patient tolerated the procedurewell. Findings & Specimens: ENDOSONOGRAPHIC FINDING: : There was no sign of significant endosonographic abnormality in theampulla. No pathologic lymphadenopathy and no masses were identified. There was no sign of significant endosonographic abnormality in thecommon bile duct. The maximum diameter of the duct was 5 mm. No stones, no biliary sludge and ductsof normal caliber were identified. Multiple stones were visualized endosonographically in thegallbladder. The stones measured up to 5 mm in greatest dimension. They were hyperechoic and characterized byshadowing. There was no sign of significant endosonographic abnormality in thevisualized portion of the liver. Homogeneous parenchyma, no focal pathology, no pathologiclymphadenopathy and no masses were identified. No lymphadenopathy seen. There was no sign of significant endosonographic abnormality in theleft adrenal gland. No adrenal gland enlargement was identified. There was no sign of significant endosonographic abnormality in thepancreatic body, pancreatic tail and main pancreatic duct. The pancreatic duct measured up to 2 mm indiameter. No masses, no cysts, no calcifications, the pancreatic duct was thin in caliber. A hypoechoic lesion suggestive of a cyst was identified in thepancreatic head. It is not in obvious communication with the pancreatic duct. The lesion measured 10 mm by9 mm in maximal cross-sectional diameter. There was a single compartment without septae. The outerwall of the lesion was not seen. There was no associated mass. There was no internal debris within thefluid- filled cavity. Diagnostic needle aspiration for fluid was performed. Color Doppler imaging wasutilized prior to needle puncture to confirm a lack of significant vascular structures within theneedle path. One pass was made with the 22 gauge needle using a transduodenal approach. A stylet was used.The amount of fluid collected was 0.7 mL. The fluid was clear, serous and watery. Sample(s) were sentfor cytology. Estimated blood loss was minimal. Impression: - There was no sign of significant pathology in theampulla. - There was no sign of significant pathology in thecommon bile duct. - Multiple stones were visualizedendosonographically in the gallbladder. - There was no evidence of significant pathology inthe visualized portion of the liver. - Endosonographic images of the left adrenal glandwere unremarkable. - There was no sign of significant pathology in thepancreatic body, pancreatic tail and main pancreatic duct. - A cystic lesion was seen in the pancreatic head.Fine needle aspiration for fluid performed. Recommendation: - The patient will be observed post-procedure,until all discharge criteria are met. - Advance diet as tolerated today. - Await cytology results. - Cipro (ciprofloxacin) 500 mg PO BID for 5 days. - Perform magnetic resonance imaging (MRI) withgadolinium in 1 year. - Refer to a surgeon at appointment to be scheduledto discuss cholecystectomy. Sylvia Horta DO 10/22/2023 9:48:18 AM This report has been signed electronically. Luis Espinoza DO GASTRO UPPER * UPPER GI ENDOSCOPY (10/22/2023 9:09 AM EST) 10/22/2023 9:09 AM EST Narrative Procedure Note Luis Espinoza DO - 10/22/2023 9:09 AM EST [facility] [address] Patient Name: Andrade Mcfarlane Procedure Date: 10/22/2023 9:09 AM Date of : 1940 Admit Type: Outpatient Note Status:Finalized Date of : 1940 Admit Type: Outpatient Age: 83 Room: Advanced [facility] Gender: Male Note Status: Finalized Procedure: Upper GI endoscopy Indications: Abnormal CT of the GI tract, Abnormal MRI of the GItract Providers: Sylvia Horta DO (Doctor) Referring MD: Luis Espinoza DO (Referring MD) Medicines: General Anesthesia Complications: No immediate complications. Estimated blood loss:Minimal. Procedure: Pre-Anesthesia Assessment: - Prior to the procedure, a History and Physicalwas performed, and patient medications, allergies and sensitivities werereviewed. The patient's tolerance of previous anesthesia was reviewed. - The risks and benefits of the procedure and thesedation options and risks were discussed with the patient. All questions wereanswered and informed consent was obtained. - Patient identification and proposed procedurewere verified prior to the procedure by the physician, the nurse and the principle industrial hygienist.The procedure was verified in the procedure room. - Pre-procedure physical examination revealed nocontraindications to sedation. - ASA Grade Assessment: III - A patient with severesystemic disease. - After reviewing the risks and benefits, thepatient was deemed in satisfactory condition to undergo the procedure. - The anesthesia plan was to use generalanesthesia. - Immediately prior to administration ofmedications, the patient was re-assessed for adequacy to receive sedatives. - The heart rate, respiratory rate, oxygensaturations, blood pressure, adequacy of pulmonary ventilation, and response to care weremonitored throughout the procedure. - The physical status of the patient wasre-assessed after the procedure. After obtaining informed consent, the endoscope waspassed under direct vision. All instruments were visually inspected immediatelybefore and after removal from the patient to ensure they are fully intact. Throughout the procedure, the patient's bloodpressure, pulse, and oxygen saturations were monitored continuously. The GIF-H180 Endoscope([id number]) was introduced through the mouth, and advanced to the second part ofduodenum. The upper GI endoscopy was accomplished without difficulty. The patienttolerated the procedure well. Findings & Specimens: The examined esophagus was normal. The Z-line was regular and was found 40 cm from the incisors. Diffuse mild inflammation characterized by congestion (edema),erythema and granularity was found in the entire examined stomach. Biopsies were taken with a cold forcepsfor histology. The pathology specimen was placed into Bottle Number 1. Estimated blood loss wasminimal. The examined duodenum was normal. Impression: - Normal esophagus. - Z-line regular, 40 cm from the incisors. - Mild Gastritis (likely medication related).Biopsied. - Normal examined duodenum. Recommendation: - Perform an upper endoscopic ultrasound (UEUS)today. - Await pathology results. Sylvia Horta DO 10/22/2023 9:16:31 AM This report has been signed electronically. Luis Espinoza DO GASTRO UPPER documented in this encounter Visit Diagnoses Diagnosis Pancreatic cyst Cyst and pseudocyst of pancreas documented in this encounter Administered Medications Inactive Administered Medications - up to 3 most recent administrations Medication Order MAR Action Action Date Dose Rate Site isolyte-S pH 7.4 infusion Intravenous, at 100 mL/hr, Plasma-LYTE 148, isolyte-S, and isolyte-S pH 7.4 are considered equivalent - including for MAR barcode scanning., CONTINUOUS, Starting on Fri10/22/23 at 0900, Until Fri10/22/23 at 1503, Pre-Op Restarted 10/22/2023 9:38 AM EST Continue from Pre-Op 10/22/2023 9:01 AM EST 100 mL/hr New Bag 10/22/2023 8:52 AM EST 100 mL/hr documented in this encounter Active and Recently Administered Medications Times are shown in EST. Continuous Medication Order 10/20/2023 10/21/202310/2210/22/2023 isolyte-S pH 7.4 infusion Intravenous, at 100 mL/hr, Plasma-LYTE 148, isolyte-S, and isolyte-S pH 7.4 are considered equivalent - including for MAR barcode scanning., CONTINUOUS, Starting on Fri10/22/23 at 0900, Until Fri10/22/23 at 1503, Pre-Op 0852 (New Bag - Prov ider: Florence Webb RN)0901 (Continue from Pre-Op - Provider: Kirsten Bueno CRNA)0937 (Paused - Provider: Kirsten Bueno CRNA - Comment: Switch to gravity)0938 (Restarted - Provider: Kirsten Bueno CRNA) documented in this encounter Advance Directives Documents on File Type Date Recorded Patient 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
--- OUTSIDE RECORDS SUMMARY | 2023-10-29 11:50 | External Medical Summary | Summary of Care ---
Author Name Unknown Organization [facility] Address [address] [facility] [place] [address] Phone [phone] Care Team Providers Care Thread Trimmer Name Role Phone Luis Espinoza DO Primary Care Provider [phone] Reason for Visit * Reason Onset Date Comments Appointment 10/22/2023 Patient 15 minut es late for scheduled appointment. Message left with patients phone number Encounter Details Date Type Department Care Team (Late st Contact Info) Description 10/22/2023 Telephone OR [facility], Operating Room [facility] [address] [place] [phone] Sylvia Horta DO [address] [place] [id number] Appointment (Patient 15 minutes late for s... Allergies Active Allergy Reactions Criticality Noted Date Comments Pollen 08/13/2017 Hay fever per patient documented as of this encounter (statuses as of 10/22/2023) Medications Medication Sig Dispensed Refills Start Date End Date Status aspirin 81 MG chewable tablet mornings 0 Suspended latanoprost (XALATAN) 0.005 % ophthalmic solution Instill 1 Drop into both eyes at bedtime. 1 drop, left eye only, bedtime 0 Suspended Vitamin D 50 MCG (2000 UT) Oral Capsule Take 2,000 Units by mouth at bedtime. 0 10/09/2020 Suspended Potassium Citrate ER 15 MEQ (1620 MG) Oral Tablet Extended Release Take by mouth 1 Tablet daily . 0 09/18/2021 Suspended Triamcinolone Acetonide 0.1 % External Cream (Aristocort)Indica tions:Stasis dermatitis of both legs Apply to affected areas on legs twice daily as needed 80 g 0 05/24/2022 Suspended Additional Information Fluorouracil 5 % External Cream (Efudex) Apply topically to affected area 2 times a day . apply to affected area. 40 g 0 05/27/2022 Suspended Additional Information Fungi-Nail 25 % External Solution (Undecylenic Acid) Apply topically to affected area . 0 Suspended Timolol Hemihydrate 0.5 % Ophthalmic Solution (Betimol) Instill 1 Drop into the left eye in the morning. 0 06/11/2022 Suspended Meclizine HCl 25 MG Oral Tablet (Antivert) Take 1 Tablet by mouth 3 times a day as needed. 0 Suspended carBAMazepine ER 300 MG Oral Capsule Extended Release 12 Hour (Carbatrol) take 1 tablet by mouth at bedtime 90 Capsule 3 12/18/2022 Suspended Additional Information Ketoconazole 2 % External Shampoo (Nizoral) Apply to scalp (as shampoo) and behind ears and back of neck, lather, wait 5 min, then rinse 120 mL 0 03/19/2023 Suspended Additional Information amLODIPine Besylate 10 MG Oral Tablet (Norvasc)Indicatio ns:History of [place] (myocardial infarction) Take 1 Tablet by mouth in the morning. 90 Tablet 3 03/21/2023 Suspended Additional Information Patient taking differently:10 mg OralDaily(Non-Specified), In evening, Reported on 10/15/2023 Rosuvastatin Calcium 40 MG Oral Tablet (Crestor)Indicatio ns:S/P CABG (coronary artery bypass graft),ST elevation myocardial infarction (STEMI), unspecified artery (HCC) take 1 tablet by mouth once daily with dinner 90 Tablet 3 05/12/2023 Suspended Additional Information Warfarin Sodium 2 MG Oral Tablet (Coumadin)Indicati ons:Chronic atrial fibrillation (HCC) TAKE 1 TABLET BY MOUTH DAILY FRIDAY, FRIDAY,FRIDAY AND 2 TABLETS ALL OTHER DAYS OR DIRECTED BY COAG CLINIC 132 Tablet 3 08/11/2023 Suspended Additional Information Carvedilol 6.25 MG Oral Tablet (Coreg) Take 1 Tablet by mouth in the morning and 1 Tablet before bedtime. 180 Tablet 3 10/14/2023 Suspended Additional Information Lisinopril 20 MG Oral Tablet (Prinivil)Indicati ons:S/P CABG (coronary artery bypass graft),ST elevation myocardial infarction (STEMI), unspecified artery (HCC) Take 1 Tablet by mouth in the morning. 90 Tablet 3 10/14/2023 Suspended Additional Information Loratadine 10 MG Oral Capsule Take 1 Capsule by mouth in the morning. 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 cheek - 2015 Hx of BCC on left cheek - 2014 Coronary artery disease invo lving marshall coronary artery of marshall heart without angina pectoris 11/19/2016 History of basal cell carcinoma of skin 05/24/20 15 documented as of this encounter (statuses as of 10/22/2023) Resolved Problems Problem Noted Date Diagnosed Date Resolved Date Chronic kidney disease, stage 3a 11/12/2021 08/13/2022 Overview: Per CKD protocol Prediabetes 12/09/2017 06/02/2018 Overview: Per Prediabetes protocol #1 Chronic atrial fibrillation 11/25/2017 12/01/2018 History of [place] (myocardial infarction) 05/23/2017 05/23/2017 Paroxysmal atrial fibrillation 05/24/2015 10/04/2021 Bipolar disorder, in full re mission, most recent episode depressed 05/24/2015 02/12/2023 Atrial fibrillation and flutter 05/24/2015 S/P CABG (coronary artery bypass graft) 05/23/2017 [place] (myocardial infarction) 0 05/23/2017 Overview: 3 in 2012 - 3 stents and an ablation done Manic episode [...] encounter Miscellaneous Notes * Telephone Encounter - Paty Macdonald OSA - 10/22/2023 9:12 AM EST Pt in the middle of procedure. Pt came documented in this encounter Plan of Treatment Upcoming Encounters Date Type Department Care Team (Late st Contact Info) Description 11/05/2023 9:20 AM EST Anticoagulation Pharmacy, [facility] [address] [facility] [place] [address] Pharmacist1, [facility] [address] [facility] [place] [address] 11/14/2023 3:30 PM EDT Office Visit Cardiology, [facility] [address] [place] [address] Gabi Nolan CRNP [address] [place] [address] 04/09/2024 2:00 PM EDT Office Visit Dermatology [facility] [address] [place] [address] Lorenzo Hoyt MD [address] [facility] [place] [address] 04/14/2024 10:20 AM EDT Office Visit Family Practice [facility] [place] [address] [place] [address] Luis Espinoza DO [address] [facility] [place] [address] Scheduled Procedures Name Priority Associated Diagnoses Date/Ti me ESOPHAGOGASTRODUODENOSCOPY ( EGD), FLEXIBLE, TRANSORAL, ENDOSCOPIC ULTRASOUND Pancreatic cyst 10/22/2023 9:06 AM EST Health Maintenance Due Date Last Done Comments Depression Screening 08/11/2021 08/11/2020 COVID-19 Vaccine ( season) 2023 11/15/2022, 07/04/2021, 10/30/2020, Additional history [...] this encounter Medical Devices Implanted Type Area Janitorial Maintenance Worker Device Identifier Shelf Expiration Date Model / Serial / Lot Clip Quick 2.8mm 230cm - [id number] Implanted:Qty: 1 on 08/19/2022 by Jojo Pearson MD at ENDOSCOPY [facility] [employer] 12/29/2024 HX-UR.A / / 25K Clip Quick 2.8mm 230cm - [id number] Implanted:Qty: 1 on 08/19/2022 by Jojo Pearson MD at [facility]COPY [facility] [employer] 12/29/2024 HX-UR.A / / 25K Clip Quick 2.8mm 230cm - [id number] Implanted:Qty: 1 on 08/19/2022 by Jojo Pearson MD at [facility]OSCOPY [facility] [employer] 12/29/2024 HX-UR.A / / 25K Clip Quick 2.8mm 230cm - [id number] Implanted:Qty: 1 on 08/19/2022 by Jojo Pearson MD at ENDOSCOPY [facility] [employer] 12/29/2024 HX-UR.A / / 25K Clip Quick 2.8mm 230cm - [id number] Implanted:Qty: 1 on 08/19/2022 by Jojo Pearson MD at [facility]COPY [facility] [employer] 12/29/2024 HX-202UR.A / / 25K Clip Quick 2.8mm 230cm - [id number] Implanted:Qty: 1 on 08/19/2022 by Jojo Pearson MD at [facility]OSCOPY [facility] [employer] 12/29/2024 HX-UR.A / / 25K documented as of this encounter Advance Directives Documents on File Type Date Recorded 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
--- OUTSIDE RECORDS SUMMARY | 2023-10-29 11:51 | External Medical Summary ---
Author Name Unknown Address Unknown Organization [id number]:[facility] [address] [place] [address] Laboratory Report Ordering Provider Test Date Status INDY MONSON 10/15/2023 10:27:22 Final Observation Date Value Abnormality Reference (Units ) Status BUN 10/15/2023 10:27:22 30 Above high normal 6-20 (mg/dL) Final Creatinine 10/15/2023 10:27:22 1.5 Above high normal 0.6-1.2 (mg/dL) Final Glomerular filtration rate/1.73 sq M.predicted [Volume Rate/Area] in Serum, Plasma or Blood by Creatinine-based formula (CKD-EPI) 10/15/2023 10:27:22 46 Below low normal >=60 (mL/min) Final eGFR is calculated based on the CKD-EPI 2020 equation SODIUM 10/15/2023 10:27:22 145 135-146 (m mol/L) Final Potassium 10/15/2023 10:27:22 4.9 3.5-5.1 (m mol/L) Final Cl 10/15/2023 10:27:22 107 98-107 (mm ol/L) Final CO2 10/15/2023 10:27:22 26 22-32 (mmo l/L) Final Anion gap 10/15/2023 10:27:22 12 7-15 (mmol /L) Final Glucose 10/15/2023 10:27:22 175 Above high normal 70 -120 (mg/dL) Final Calcium 10/15/2023 10:27:22 9.1 8.4-10.2 ( mg/dL) Final Performing Location [facility] [place] [address] [place] [place] [address]
--- OUTSIDE RECORDS SUMMARY | 2023-10-29 11:51 | External Medical Summary | Summary of Care ---
Author Name Unknown Organization [facility] Address [address] [place] [address] Phone [phone] Care Team Providers Care Tax Map Technician Name Role Phone Luis Espinoza DO Primary Care Provider [phone] Reason for Visit * Reason Onset Date Comments Appointment 10/13/2023 EGD/EUS Encounter Details Date Type Department Care Team (Late st Contact Info) Description 10/13/2023 Telephone Gastroenterology, [place] [address] [place] [address] Specified, Bernard No Resource [address] [place] [address] Appointment (EGD/EUS) Allergies Active Allergy Reactions Criticality Noted Date Comments Pollen 08/13/2017 Hay fever per patient documented as of this encounter (statuses as of 10/14/2023) Medications Medication Sig Dispensed Refills Start Date End Date Status aspirin 81 MG chewable tablet mornings 0 Active latanoprost (XALATAN) 0.005 % ophthalmic solution Instill 1 Drop into both eyes at bedtime. 1 drop, left eye only, bedtime 0 Active Vitamin D 50 MCG (2000 UT) Oral Capsule Take 2,000 Units by mouth daily. 0 10/09/2020 Active Potassium Citrate ER 15 MEQ (1620 MG) Oral Tablet Extended Release Take by mouth 1 Tablet daily . 0 09/18/2021 Active Triamcinolone Acetonide 0.1 % External Cream (Aristocort)Indicati ons:Stasis dermatitis of both legs Apply to affected [...] Active amLODIPine Besylate 10 MG Oral Tablet (Norvasc)Indications :History of ID (myocardial infarction) Take 1 Tablet by mouth in the morning. 90 Tablet 3 03/21/2023 Active Rosuvastatin Calcium 40 MG Oral Tablet (Crestor)Indications :S/P CABG (coronary artery bypass graft),ST elevation myocardial infarction (STEMI), unspecified artery (HCC) take 1 tablet by mouth once daily with dinner 90 Tablet 3 05/12/2023 Active Warfarin Sodium 2 MG Oral Tablet (Coumadin)Indication s:Chronic atrial fibrillation (HCC) TAKE 1 TABLET BY MOUTH DAILY FRIDAY, FRIDAY,FRIDAY AND 2 TABLETS ALL OTHER DAYS OR DIRECTED BY [facility] CL[facility] 132 Tablet 3 08/11/2023 Active documented as of this encounter (statuses as of 10/14/2023) Active Problems Problem Noted Date Diagnosed Date Permanent atrial fibrillation 09/23/2023 Bipolar 1 disorder 02/12/2023 Inguinal hernia of left side without obstruction or gangrene 09/03/2022 Hypertension 09/03/2022 Chronic atrial fibrillation 02/28/2020 History of ID (myocardial infarction) 05/23/2017 History of nonmelanoma skin cancer 04/22/2017 Overview: 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 cheek - 2015 Hx of BCC on left cheek - 2014 Coronary artery disease invo lving [place] coronary artery of [place] heart without angina pectoris 11/19/2016 History of basal cell carcinoma of skin 05/24/20 15 documented as of this encounter (statuses as of 10/14/2023) Resolved Problems Problem Noted Date Diagnosed Date Resolved Date Chronic kidney disease, stage 3a 11/12/2021 08/13/2022 Overview: Per CKD protocol Prediabetes 12/09/2017 06/02/2018 Overview: Per Prediabetes protocol #1 Chronic atrial fibrillation 11/25/2017 12/01/2018 History of ID (myocardial infarction) 05/23/2017 05/23/2017 Paroxysmal atrial fibrillation 05/24/2015 10/04/2021 Bipolar disorder, in full re mission, most recent episode depressed 05/24/2015 02/12/2023 Atrial fibrillation and flutter 05/24/2015 S/P CABG (coronary artery bypass graft) 05/23/2017 [place] (myocardial infarction) 0 05/23/2017 Overview: 3 in 2011 - 3 stents and an ablation done Manic episode 11/19/2016 Bipolar disorder (manic depression) 05/24/2015 documented as of this encounter (statuses as of 10/14/2023) Immunizations Name Administration Dates Next Due COVID-19 mRNA, LNP-s, No Pre serve, 2-Dose Series (Moderna) 10/30/2020,09/27/2020 COVID-19, mRNA, LNP-s, PF, B ooster, 100mcg/0.5mg (Moderna) 07/04/2021 Covid-19, Mrna, Lnp-s, Pf, B ivalent, 30 Mcg, IM, 12 yrs and above (Delphix) 11/15/2022 H1N1 2009 Influenza, IM 09/04/2009 HEP [...] encounter Miscellaneous Notes * Telephone Encounter - Awa Azul OSA - 10/14/2023 4:31 PM EST Please review order for EUS for pancreatic mass. Thanks! * Telephone Encounter - Malia Metz OSA - 10/13/2023 10:59 AM EST Order EGD, W/ENDOSCOPIC US [[id number]] (Order [id number]) Andrade Florence Maeve 10/09/2023 12:12 PM Telephone Description: 83 year old male Provider: Luis Espinoza DO Department: [facility]AT[facility] Order Information Date and Time Department Ordering/Authorizing 10/09/2023 3:15 PM [place] [facility] [place] Espinoza [place] Order Providers Authorizing Provider Encounter Provider ([id number]) Luis Espinoza DO ([id number]) Luis Espinoza DO Priority and Order Details Priority Class Routine Site Quantity Ordering Quantity 1 Collection Information Comments This order is for a procedure only. If you are referring the patient to Gastroenterology, please place the appropriate referral. Order Questions Question Answer Procedure Location: [place] Facility: ENDO [facility] Associated Diagnoses Pancreatic mass [K86.89] Encounter View Encounter Reprint Requisition EGD, W/ENDOSCOPIC US (Order #[id number]) on 10/09/23 Detailed Information Priority and Order Details Reference Links Acct Guarantor Acct Type [id number] ANDRADE MCFARLANE Personal/Family [1] Service Location Name Address [address] [phone] Currently Active Insurance Payor Plan Subscriber Member ID MEDICARE MEDICARE A AND B ANDRADE MCFARLANE [id number] [facility] [email or web address] BENEFITS [facility] [employer] DONA MCFARLANE [id number] documented in this encounter Plan of Treatment Upcoming Encounters Date Type Department Care Team (Late st Contact Info) Description 10/20/2023 9:20 AM EST Anticoagulation Pharmacy, [facility] [address] [facility] [place] [address] Pharmacist1, [facility] [address] [facility] [place] [address] 11/14/2023 3:30 PM EDT Office Visit Cardiology, [facility] [address] [place] [address] [address] Gabi Nolan CRNP [address] [place] [address] 04/09/2024 2:00 PM EDT Office Visit Dermatology [facility] [place] [address] [facility] [place] [address] Lorenzo Hoyt MD [address] [facility] [place], [place] [address] 04/14/2024 10:20 AM EDT Office Visit Family Practice [facility] [place] [address] [facility] [place] [address] Luis Espinoza DO [address] [facility] [place] [address] Health Maintenance Due Date Last Done Comments Depression Screening 08/11/2021 08/11/2020 COVID-19 Vaccine (2022- season) 2023 11/15/2022, 07/04/2021, 10/30/2020, Additional history exists GFR 10/09/2024 10/09/2023, 09/03, 09/25/2023, Additional history exists Albumin/Creatinine Ratio 03/20/2026 03/20/2023 [...] this encounter Medical Devices Implanted Type Area Sales Training Representative Device Identifier Shelf Expiration Date Model / Serial / Lot Clip Quick 2.8mm 230cm - [id number] Implanted:Qty: 1 on 08/19/2022 by Jojo Pearson MD at ENDOSCOPY [facility] [employer] 12/29/2024 [id number]-202UR.[id number] / [id number] documented as of this encounter Advance Directives Documents on File Type Date Recorded Patient Stripper Black And White Expl anation Advance Directives and Living Will 09/28/2016 LIVING WILL Care Teams Tax Map Technician Relationship Specialty Start Date End Date Luis Espinoza DO [address] [place] [address] PCP - General Family Medicine 02/16/17 documented as of this encounter
--- OUTSIDE RECORDS SUMMARY | 2023-10-29 11:51 | External Medical Summary | Summary of Care ---
Author Name Unknown Organization [facility] Address [address] [facility] [place] [address] Phone [phone] Care Team Providers Care Fire Boss Name Role Phone Luis Espinoza DO Primary Care Provider [phone] Reason for Visit * Reason Onset Date Comments Procedure 10/15/2023 Encounter Details Date Type Department Care Team (Late st Contact Info) Description 10/15/2023 Telephone [facility], Operating Room [facility] [address] [place] [phone] Sylvia Horta DO [address] [place] [address] Procedure Allergies Active Allergy Reactions Criticality Noted Date Comments Pollen 08/13/2017 Hay fever per patient documented as of this encounter (statuses as of 10/15/2023) Medications Medication Sig Dispensed Refills Start Date [...] 10 MG Oral Tablet (Norvasc)Indications :History of [place] (myocardial infarction) Take 1 Tablet by mouth [...] 10/14/2023 Active Lisinopril 20 MG Oral Tablet (Prinivil)Indication s:S/P CABG (coronary artery bypass graft),ST elevation myocardial infarction (STEMI), unspecified artery (HCC) Take 1 Tablet by mouth in the morning. 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 cheek - 2015 Hx of BCC on left cheek - 2014 Coronary artery disease invo lving [place] coronary artery of [place] heart without angina pectoris 11/19/2016 History of basal cell carcinoma of skin 05/24/20 15 documented as of this encounter (statuses as of 10/15/2023) Resolved Problems Problem Noted Date Diagnosed Date Resolved Date Chronic kidney disease, stage 3a 11/12/2021 08/13/2022 Overview: Per CKD protocol Prediabetes 12/09/2017 06/02/2018 Overview: Per Prediabetes protocol #1 Chronic atrial fibrillation 11/25/2017 12/01/2018 History of [place] (myocardial infarction) 05/23/2017 05/23/2017 Paroxysmal atrial fibrillation 05/24/2015 10/04/2021 Bipolar disorder, in full re mission, most recent episode depressed 05/24/2015 02/12/2023 Atrial fibrillation and flutter 05/24/2015 S/P CABG (coronary artery bypass graft) 05/23/2017 [place] (myocardial infarction) 0 05/23/2017 Overview: 3 in 2011 - 3 stents and an ablation done Manic episode 11/19/2016 Bipolar disorder (manic depression) 05/24/2015 documented as of this encounter (statuses as of 10/15/2023) Immunizations Name Administration Dates Next Due COVID-19 [...] encounter Miscellaneous Notes * Telephone Encounter - Maico Raman [facility] - 10/15/2023 11:02 AM EST Patient Phone Numbers Spoke to patient's at 11:10 AM and Ed was not home. I will call back later. Patient is having an EUS on 10-22-23. Diagosis for coumadin therapy is atrial fibrillation. No hx ofrecent DVT, PE, MVR, DE or CVA. CHADS2 score of 4. Patient will take their last dose of coumadin 10/16, then restart coumadin the evening of the procedure with 6 mg for 2 days, then resume previous dose, 2 mg every Mon, Wed, Fri; 4 mg all other days . Repeat pt/inr 2 weeks after procedure. Maico Adams RPh, [facility] Clinical Pharmacist Medication Therapy Management [facility] 10/15/2023, 11:03 AM * Telephone Encounter - Flori Polanco RN - 10/15/2023 10:22 AM EST This patient is scheduled for EUS on 10-22-23 and will need his coumadin dose addressed prior to procedure Thank you documented in this encounter Plan of Treatment Upcoming Encounters Date Type Department Care Team (Latest Contact Info) Description 4 8:45 AM EST Hospital Encounter ENDO [facility], Endoscopy Room [facility] [address] [place] [phone] Sylvia Horta DO [address] [place] [address] 4 8:45 AM EST - 4 9:30 AM EST Surgery ENDO [facility], Endoscopy Room [facility] [address] [place] [phone] Sylvia Horta DO [address] [place] [address] ESOPHAGOGASTRODUODENOSCOPY (EGD), FLEXIBLE, TRANSORAL, ENDOSCOPIC ULTRASOUND 4 9:20 AM EST Anticoagulation Pharmacy, [address] [place] [address] Pharmacist1, [facility] [address] [facility] [place] [address] 4 3:30 PM EDT Office Visit Cardiology, [facility] [address] [place] [address] Gabi Nolan CRNP [address] [place] [address] 4 2:00 PM EDT Office Visit Dermatology [facility] [address] [facility] [place] [address] Lorenzo Hoyt MD [address] [facility] [place] [address] 4 10:20 AM EDT Office Visit Family Practice [facility] [address] [facility] [place] [address] Luis Espinoza, DO [address] [facility] [place] [address] Scheduled Procedures Name Priority Associated Diagnoses Date/Ti [...] this encounter Medical Devices Implanted Type Area Communication Center Coordinator Device Identifier Shelf Expiration Date Model / Serial / Lot Clip Quick 2.8mm 230cm - [id number] Implanted:Qty: 1 on 08/19/2022 by Jojo Pearson MD at ENDOSCOPY [facility] Colon [employer] 12/29/2024 [id number]-202UR.[id number] / / [id number] documented as of this encounter Advance Directives Documents on File Type Date Recorded Patient Tram Inspector Expl anation Advance Directives and Living Will 09/28/2016 LIVING WILL Care Teams Fire Boss Relationship Specialty Start Date End Date Luis Espinoza DO [address] [place] [address], [place] [address] PCP - General Family Medicine 02/16/17 documented as of this encounter
--- OUTSIDE RECORDS SUMMARY | 2023-10-29 11:51 | External Medical Summary | Summary of Care ---
Author Name Unknown Organization [facility] Address [address] [place] [address] Phone [phone] Care Team Providers Care Inserting Press Operator Name Role Phone Luis Espinoza DO Primary Care Provider [phone] Reason for Visit * Reason Onset Date Comments Appointment 10/13/2023 EGD/EUS Encounter Details Date Type Department Care Team (Late st Contact Info) Description 10/13/2023 Telephone Gastroenterology, [place] [address] [place] [address] Specified, [place] No Resource [address] [place] [address] Appointment (EGD/EUS) Allergies Active Allergy [...] 10 MG Oral Tablet (Norvasc)Indications :History of [place] (myocardial infarction) Take 1 Tablet by mouth [...] 09/03/2022 Chronic atrial fibrillation 02/28/2020 History of [place] (myocardial infarction) 05/23/2017 History of nonmelanoma skin cancer 04/22/2017 Overview: 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 cheek - 2015 Hx of BCC on left cheek - 2014 Coronary artery disease invo lving [place] coronary artery of [place] heart without angina pectoris 11/19/2016 History of basal cell carcinoma of skin 05/24/20 15 documented as of this encounter (statuses as of 10/14/2023) Resolved Problems Problem Noted Date Diagnosed Date Resolved Date Chronic kidney disease, stage 3a 11/12/2021 08/13/2022 Overview: Per CKD protocol Prediabetes 12/09/2017 06/02/2018 Overview: Per Prediabetes protocol #1 Chronic atrial fibrillation 11/25/2017 12/01/2018 History of [place] (myocardial infarction) 05/23/2017 05/23/2017 Paroxysmal atrial fibrillation 05/24/2015 10/04/2021 Bipolar disorder, in full re mission, most recent episode depressed 05/24/2015 02/12/2023 Atrial fibrillation and flutter 05/24/2015 S/P CABG (coronary artery bypass graft) 05/23/2017 [place] (myocardial infarction) 0 05/23/2017 Overview: 3 in [...] 30 Mcg, IM, 12 yrs and above ([employer]) 11/15/2022 H1N1 2009 Influenza, IM 09/04/2009 HEP [...] encounter Miscellaneous Notes * Telephone Encounter - Jojo Pearson MD - 10/14/2023 7:24 PM EST Straight for an EUS for pancreas cyst and nodularity, ? Mass. This should be arranged within 2-4 weeks. * Telephone Encounter - Awa Azul OSA - 10/14/2023 4:31 PM EST Please review order for EUS for pancreatic mass. Thanks! * Telephone Encounter - Malia Metz OSA - 10/13/2023 10:59 AM EST Order EGD, W/ENDOSCOPIC US [[id number]] (Order [id number]) Andrade Naman Maeve 10/09/2023 12:12 PM Telephone Description: 83 year old male Provider: Luis Espinoza DO Department: [place] [facility] Order Information Date and Time Department Ordering/Authorizing 10/09/2023 3:15 PM Laboratory [facility] Luis Espinoza DO Order Providers Authorizing Provider Encounter Provider ([id number]) Luis Espinoza DO ([id number]) Luis Espinoza DO Priority and Order Details Priority Class Routine Site Quantity Ordering Quantity 1 Collection Information Comments This order is for a procedure only. If you are referring the patient to Gastroenterology, please place the appropriate referral. Order Questions Question Answer Procedure Location: [place] Facility: [facility] Associated Diagnoses Pancreatic mass [K86.89] Encounter View Encounter Reprint Requisition EGD, W/ENDOSCOPIC US (Order #[id number]) on 10/09/23 Detailed Information Priority and Order Details Reference Links Acct Guarantor Acct Type [id number] ANDRADE MCFARLANE Personal/Family [1] Service Location Name Address [address] [phone] Currently Active Insurance Payor Plan Subscriber Member ID MEDICARE MEDICARE A AND B ANDRADE MCFARLANE [id number] [facility] HE[facility] BENEFITS [facility] [employer] DONA MCFARLANE [id number] documented in this encounter Plan of Treatment Upcoming Encounters Date Type Department Care Team (Late st Contact Info) Description 10/20/2023 9:20 AM EST Anticoagulation Pharmacy, [facility] [place] [address] [place] [address] [address] Pharmacist1, [facility] [address] [place] [address] [address] 11/14/2023 3:30 PM EDT Office Visit Cardiology, [facility] [address] [facility] [place] [address] Gabi Nolan CRNP [address] [place] [address] 04/09/2024 2:00 PM EDT Office Visit Dermatology [facility] [address] [facility] [place] [address] Lorenzo Hoyt MD [address] [facility] [place] [address] 04/14/2024 10:20 AM EDT Office Visit Family Practice [facility] [address] [facility] [place] [address] Luis Espinoza DO [address] [facility] [place] [address] Health Maintenance Due Date Last Done Comments Depression Screening 08/11/2021 08/11/2020 COVID-19 Vaccine ( season) 2023 11/15/2022, 07/04/2021, 10/30/2020, Additional history exists GFR 10/09/2024 10/09/2023, 09/03, 09/25/2023, Additional history exists Albumin/Creatinine Ratio 03/20/2026 03/20/2023 DTaP,Tdap,and Td Vaccines (3 - Td or Tdap) 12/26/2030 12/26/2020, 11/16/2010 Pneumococcal Vaccine: 65+ Years Completed 05/21/2016, 10/24/2009, 08/08/2004 Zoster Vaccines Completed 09/30/2018, 1105/2018, 12/17/2011 COLONOSCOPY-EVERY 3 YRS AGES 18-100 Discontinued [...] this encounter Medical Devices Implanted Type Area Industrial Truck Mechanic Device Identifier Shelf Expiration Date Model / Serial / Lot Clip Quick 2.8mm 230cm - [id number] Implanted:Qty: 1 on 08/19/2022 by Jojo Pearson MD at ENDOSCOPY [facility] [employer] 12/29/2024 HX-202UR.A / / [id number] documented as of this encounter Advance Directives Documents on File Type Date Recorded Patient Infection Control Coordinator Expl anation Advance Directives and Living Will 09/28/2016 LIVING WILL Care Teams Inserting Press Operator Relationship Specialty Start Date End Date Luis Espinoza DO [address] [place] [address] PCP - General Family Medicine 02/16/17 documented as of this encounter
--- OUTSIDE RECORDS SUMMARY | 2023-10-29 11:51 | External Medical Summary | Summary of Care ---
Author Name Unknown Organization [facility] Address [address] [facility] [place] [address] Phone [phone] Care Team Providers Care Power Electronics Research Engineer Name Role Phone Luis Espinoza DO Primary Care Provider [phone] Reason for Visit * Reason Onset Date Comments Test Results 10/09/2023 Encounter Details Date Type Department Care Team (Late st Contact Info) Description 10/09/2023 Telephone Cardiology, [facility] [address] [facility] [place] [address] Gabi Putnam CRNP [address] [facility] [address] Test Results Allergies Active Allergy Reactions Criticality [...] times a day as needed. 0 Active Lisinopril 40 MG Oral TabletIndications:S/ P CABG (coronary artery bypass graft),ST elevation myocardial infarction (STEMI), unspecified artery (HCC) Take 1 Tablet by mouth in the morning. 90 Tablet 3 11/08/2022 Active carBAMazepine ER 300 MG Oral Capsule Extended Release 12 Hour (Carbatrol) take 1 tablet by mouth at bedtime 90 Capsule 3 12/18/2022 Active Ketoconazole 2 % External Shampoo (Nizoral) Apply to scalp (as shampoo) and behind ears and back of neck, lather, wait 5 min, then rinse 120 mL 0 03/19/2023 Active amLODIPine Besylate 10 MG Oral Tablet (Norvasc)Indications :History of [place] (myocardial infarction) Take 1 Tablet by mouth [...] CLINIC 132 Tablet 3 08/11/2023 Active Carvedilol 3.125 MG Oral Tablet (Coreg) Take 1 Tablet by mouth in the morning and 1 Tablet before bedtime. 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 cheek - 2015 Hx of BCC on left cheek - 2014 Coronary artery disease invo lving [place] coronary artery of [place] heart without angina pectoris 11/19/2016 History of basal cell carcinoma of skin 05/24/20 15 documented as of this encounter (statuses as of 10/14/2023) Resolved Problems Problem Noted Date Diagnosed Date Resolved Date Chronic kidney disease, stage 3a 11/12/2021 08/13/2022 Overview: Per CKD protocol Prediabetes 12/09/2017 06/02/2018 Overview: Per Prediabetes protocol #1 Chronic atrial fibrillation 11/25/2017 12/01/2018 History of [place] (myocardial infarction) 05/23/2017 05/23/2017 Paroxysmal atrial fibrillation 05/24/2015 10/04/2021 Bipolar disorder, in full re mission, most recent episode depressed 05/24/2015 02/12/2023 Atrial fibrillation and flutter 05/24/2015 S/P CABG (coronary artery bypass graft) 05/23/2017 [place] (myocardial infarction) 0 05/23/2017 Overview: 3 in [...] as of this encounter Miscellaneous Notes * Addendum Note - Gabi Putnam CRNP - 10/10/2023 1:11 PM ESTAddended by: GABI PUTNAM on: 10/10/2023 01:11 PM Modules accepted: Orders * Telephone Encounter - Gabi Putnam CRNP - 10/10/2023 1:09 PM EST Please have patient reduce lisinopril to 20 mg daily and increase coreg to 6.25 mg BID. BMP in 1 week after change. Meds pending if patient agreeable. * Telephone Encounter - Gabi Putnam CRNP - 10/10/2023 9:28 AM EST MyG sent. Future considerations of reducing lisinopril and increasing coreg vs adding hydralazine. * Telephone Encounter - Luis Enrique Parish LPN - 10/10/2023 9:24 AM EST Please see patient's MyChart reply. * Telephone Encounter - Luis Enrique Parish LPN - 10/09/2023 4:50 PM EST Sent patient a Padcom message to make aware. Awaiting reply. ----- Message from MARICARMEN Henriquez sent at 10/09/2023 1:12 PM EST ----- Improvement in renal function since discontinuation in triamterene-hydrochlorothiazide. Potassium top normal. Can we follow-up with the patient regarding any home blood pressure readings. I may want to make some further changes before follow-up. If patient does not have a blood pressure cuff at home recommend a nurse blood pressure check. documented in this encounter Plan of Treatment Upcoming Encounters Date Type Department Care Team (Late st Contact Info) Description 10/20/2023 9:20 AM EST [facility] [address] [place] [address] Pharmacist1, [facility] [place] [address] 11/14/2023 3:30 PM EDT Office Visit Cardiology, [facility] [address] [place] [address] Gabi Putnam CRNP [address] [place] [address] 04/09/2024 2:00 PM EDT Office Visit Dermatology [facility] 200 [facility] [place] [address] Lorenzo Hoyt MD 200 [facility] [place] [address] 04/14/2024 10:20 AM EDT Office Visit Family Practice [facility] [address] [facility] [place] [address] Luis Espinoza, 200 [facility] [place] [address] Health Maintenance Due Date Last Done Comments Depression Screening 08/11/2021 08/11/2020 COVID-19 Vaccine (2022- season) 2023 11/15/2022, 07/04/2021, 10/30/2020, Additional history exists GFR 10/09/2024 10/09/2023, 09/03, 09/25/2023, Additional history exists Albumin/Creatinine Ratio 03/20/2026 03/20/2023 DTaP,Tdap,and Td Vaccines (3 - Td or Tdap) 12/26/2030 12/26/2020, 11/16/2010 Pneumococcal Vaccine: 65+ Years Completed 05/21/2016, 10/24/2009, 08/08/2004 Zoster Vaccines Completed 09/30/2018, 11/0 05/2018, 12/17/2011 COLONOSCOPY-EVERY 3 YRS AGES 18-100 [...] this encounter Medical Devices Implanted Type Area Strategic Planning Specialist Device Identifier Shelf Expiration Date Model / Serial / Lot Clip Quick 2.8mm 230cm - [id number] Implanted:Qty: 1 on 08/19/2022 by Jojo Pearson MD at ENDOSCOPY [facility] [employer] [facility] 12/29/2024 [id number]-202UR.[id number] / / [id number] documented as of this encounter Visit Diagnoses Diagnosis S/P CABG (coronary artery bypass graft) Postsurgical aortocoronary bypass status ST elevation myocardial infarction (STEMI), unspecified artery (HCC) documented in this encounter Advance Directives Documents on File Type Date Recorded Patient Social Economist Expl anation Advance Directives and Living Will 09/28/2016 LIVING WILL Care Teams Power Electronics Research Engineer Relationship Specialty Start Date End Date Luis Espinoza DO [address] [place] [address], [place] [address] PCP - General Family Medicine 02/16/17 documented as of this encounter
--- OUTSIDE RECORDS SUMMARY | 2023-10-29 11:51 | External Medical Summary | Summary of Care ---
Author Name Unknown Organization [facility] Address [address] [facility] [place] [address] Phone [phone] Care Team Providers Care Valver Name Role Phone Luis Espinoza DO Primary Care Provider [phone] Reason for Visit * Reason Comments Outpatient Testing Encounter Details Date Type Department Care Team (Late st Contact Info) Description 10/15/2023 10:30 AM EST Laboratory Laboratory [facility] [address] [place] [id number] [facility] [address] [place] [address] S/P CABG (coronary artery bypass graft); ST elevation myocardial infarction (STEMI), unspecified artery (HCC) Allergies Active Allergy Reactions Criticality Noted Date [...] bedtime 0 Active Vitamin D 50 MCG (1999 UT) Oral Capsule Take 2,000 Units by [...] 10 MG Oral Tablet (Norvasc)Indications :History of PA (myocardial infarction) Take 1 Tablet by mouth [...] 09/03/2022 Chronic atrial fibrillation 02/28/2020 History of PA (myocardial infarction) 05/23/2017 History of nonmelanoma skin [...] Chronic atrial fibrillation 11/25/2017 12/01/2018 History of PA (myocardial infarction) 05/23/2017 05/23/2017 Paroxysmal atrial fibrillation 05/24/2015 10/04/2021 Bipolar disorder, in full re mission, most recent episode depressed 05/24/2015 02/12/2023 Atrial fibrillation and flutter 05/24/2015 S/P CABG (coronary artery bypass graft) 05/23/2017 PA (myocardial infarction) 0 05/23/2017 Overview: 3 in [...] on file documented as of this encounter Plan of Treatment Upcoming Encounters Date Type Department Care Team (Latest Contact Info) Description 4 9:20 AM EST Anticoagulation Pharmacy, [facility] [place] [address] [place] [address] Pharmacist1, [facility] [address] [place] [address] 4 8:45 AM EST Hospital Encounter ENDO [facility], Endoscopy Room [facility] [address] [place], [place] [phone] Sylvia Horta, DO [address] [place] [address] 4 8:45 AM EST - 4 9:30 AM EST Surgery ENDO [facility], Endoscopy Room [facility] [address] [place], [place] [phone] Sylvia Horta, DO [address] [place] [address] ESOPHAGOGASTRODUODENOSCOPY (EGD), FLEXIBLE, TRANSORAL, ENDOSCOPIC ULTRASOUND 4 3:30 PM EDT Office Visit Cardiology, [facility] [address] [place] [address] Gabi Nolan CRNP [address] [place] [address] 4 2:00 PM EDT [facility] [address] [place] [address] Lorenzo Hoyt MD [address] [place] [address] 4 10:20 AM EDT Office Visit Family Practice [facility] [place] [address] [place] [address] Luis Espinoza, DO [address] [place] [address] [address] Pending Results Name Type Priority Associated Diagnoses Date /Time BASIC METABOLIC PANEL Lab Routine S/P CABG (coronary artery bypass graft) ST elevation myocardial infarction (STEMI), unspecified artery (HCC) 10/15/2023 10:27 AM EST Scheduled Procedures Name Priority Associated Diagnoses Date/Ti ia ESOPHAGOGASTRODUODENOSCOPY ( EGD), FLEXIBLE, TRANSORAL, ENDOSCOPIC ULTRASOUND [...] this encounter Medical Devices Implanted Type Area Supervisor Paste Mixing Device Identifier Shelf Expiration Date Model / Serial / Lot Clip Quick 2.8mm 230cm - [id number] Implanted:Qty: 1 on 08/19/2022 by Jojo Pearson MD at ENDOSCOPY [facility] [employer] [facility] 12/29/2024 [id number]-202UR.A / / [id number] documented as of this encounter Visit Diagnoses Diagnosis S/P CABG (coronary artery bypass graft) Postsurgical aortocoronary bypass status ST elevation myocardial infarction (STEMI), unspecified artery (HCC) Pancreatic cyst Cyst and pseudocyst of pancreas documented in this encounter Advance Directives Documents on File Type Date Recorded Patient Optics Test Technician Expl anation Advance Directives and Living Will 09/28/2016 LIVING WILL Care Teams Valver Relationship Specialty Start Date End Date Luis Espinoza DO [address] [place], [place] [address]g[place] [address] PCP - General Family Medicine 02/16/17 documented as of this encounter
--- OUTSIDE RECORDS SUMMARY | 2023-10-29 11:51 | External Medical Summary | Summary of Care ---
Author Name Unknown Organization [facility] Address [address] [facility] [place] [address] Phone [phone] Care Team Providers Care Art Gallery Internship Name Role Phone Luis Espinoza DO Primary Care Provider [phone] Reason for Visit * Reason Onset Date Comments Test Results 10/09/2023 Encounter Details Date Type Department Care Team (Late st Contact Info) Description 10/09/2023 Telephone Cardiology, [facility] [address] [facility] [place] [address] Gabi Putnam CRNP [address] [facility] [address] Test Results Allergies Active Allergy Reactions Criticality [...] Active Triamcinolone Acetonide 0.1 % External Cream (Aristocort)Indica [...] Active amLODIPine Besylate 10 MG Oral Tablet (Norvasc)Indicatio ns:History of [place] (myocardial infarction) Take 1 Tablet by mouth in the morning. 90 Tablet 3 03/21/2023 Active Rosuvastatin Calcium 40 MG Oral Tablet (Crestor)Indicatio ns:S/P CABG (coronary artery bypass graft),ST elevation myocardial infarction (STEMI), unspecified artery (HCC) take 1 tablet by mouth once daily with dinner 90 Tablet 3 05/12/2023 Active Warfarin Sodium 2 MG Oral Tablet (Coumadin)Indicati ons:Chronic atrial fibrillation (HCC) TAKE 1 TABLET BY MOUTH DAILY FRIDAY, FRIDAY, Y AND 2 TABLETS ALL OTHER DAYS OR DIRECTED BY COAG CLINIC 132 Tablet 3 08/11/2023 Active Carvedilol 6.25 MG Oral Tablet (Coreg) Take 1 Tablet by mouth in the morning and 1 Tablet before bedtime. 180 Tablet 3 10/14/2023 Active Lisinopril 20 MG Oral Tablet (Prinivil)Indicati ons:S/P CABG (coronary artery bypass graft),ST elevation myocardial infarction (STEMI), unspecified artery (HCC) Take 1 Tablet by mouth in the morning. 90 Tablet 3 10/14/2023 Active Lisinopril 40 MG Oral TabletIndications: S/P CABG (coronary artery bypass graft),ST elevation myocardial infarction (STEMI), unspecified artery (HCC) Take 1 Tablet by mouth in the morning. 90 Tablet 3 11/08/2022 4 Discontinue d(Refill) Carvedilol 3.125 MG Oral Tablet (Coreg) Take 1 Tablet by mouth in the morning and 1 Tablet before bedtime. 204 Tablet 3 10/02/2023 4 Discontinue d(Refill) documented as of this encounter (statuses as [...] - 2014 Coronary artery disease invo lving [place] coronary artery of [place] heart without angina pectoris 11/19/2016 History of [...] Addendum Note - Gabi Putnam CRNP - 10/14/2023 11:08 AM ESTAddended by: GABI PUTNAM on: 10/14/2023 11:08 AM Modules accepted: Orders * Addendum Note - Gabi Putnam CRNP [...] 10/09/2023 4:50 PM EST Sent patient a ShopPadt message to make aware. Awaiting reply. ----- [...] Description 10/20/2023 9:20 AM EST Anticoagulation Pharmacy, [facility] 200 [facility] [place] [address] Pharmacist1, [facility] [address] [place] [address] 11/14/2023 3:30 PM EDT Office Visit Cardiology, [facility] [place] [address] Gabi Putnam CRNP [address] [facility] [place] [address] 04/09/2024 2:00 PM EDT Office Visit Dermatology [facility] [address] [place] [address] [address] Lorenzo Hoyt MD 200 [place] [address] 04/14/2024 10:20 AM EDT Office Visit Family Practice [facility] [address] [place] [address] [address] Luis Espinoza, DO [address] [place] [address] Scheduled Orders Name Type Priority Associated Diagnoses Orde r Schedule BASIC METABOLIC PANEL Lab Routine S/P CABG (coronary artery bypass graft) ST elevation myocardial infarction (STEMI), unspecified artery (HCC) Expected: 10/17/2023, Expires: 10/10/2024 Health Maintenance Due Date Last Done Comments [...] this encounter Medical Devices Implanted Type Area Youth Liaison Officer Device Identifier Shelf Expiration Date Model / Serial / Lot Clip Quick 2.8mm 230cm - [id number] Implanted:Qty: 1 on 08/19/2022 by Jojo Pearson MD at ENDOSCOPY [facility] [employer] 12/29/2024 HX-202UR.A / / [id number] documented as of this encounter Visit Diagnoses Diagnosis S/P CABG (coronary artery bypass graft) Postsurgical aortocoronary bypass status ST elevation myocardial infarction (STEMI), unspecified artery (HCC) documented in this encounter Advance Directives Documents on File Type Date Recorded Patient Head Golf Coach Expl anation Advance Directives and Living Will 09/28/2016 LIVING WILL Care Teams Art Gallery Internship Relationship Specialty Start Date End Date Luis Espinoza DO [address] [place] [address] PCP - General Family Medicine 02/16/17 documented as of this encounter
--- OUTSIDE RECORDS SUMMARY | 2023-10-29 11:51 | External Medical Summary | Summary of Care ---
Author Name Unknown Organization [facility] Address [address] [place] [address] Phone [phone] Care Team Providers Care Dry House Tender Name Role Phone Luis Espinoza DO Primary Care Provider [phone] Reason for Visit * Reason Onset Date Comments Appointment 10/13/2023 EGD/EUS Encounter Details Date Type Department Care Team (Late st Contact Info) Description 10/13/2023 Telephone Gastroenterology, [place] [address] [place] [address] Specified, [facility] [address] [place] [address] Appointment (EGD/EUS) Allergies Active Allergy [...] 10 MG Oral Tablet (Norvasc)Indications :History of [place] (myocardial infarction) Take 1 Tablet [...] - 2014 Coronary artery disease invo lving [place] coronary artery of [place] heart without angina pectoris 11/19/2016 History of [...] 30 Mcg, IM, 12 yrs and above ([employer]) 11/15/2022 H1N1 2009 Influenza, IM 09/04/2009 HEP [...] Telephone Encounter - Awa Azul OSA - 10/15/2023 9:41 AM EST Spoke to pt, scheduled EUS 10/22/[address] Horta at . * Telephone Encounter - Jojo Pearson MD [...] 10:59 AM EST Order EGD, W/ENDOSCOPIC US [[id number]] (Order [id number]) Andrade Mcfarlane 10/09/2023 12:12 PM Telephone Description: 83 year old male Provider: Luis Espinoza DO Department: LABORATORY [facility] Order Information Date and Time Department Ordering/Authorizing 10/09/2023 3:15 PM Laboratory [facility] Luis Espinoza DO Order Providers Authorizing Provider Encounter Provider ([id number]) Luis Espinoza DO ([id number]) Luis Espinoza DO Priority and Order Details Priority Class Routine Site Quantity Ordering Quantity 1 Collection Information Comments This order is for a procedure only. If you are referring the patient to Gastroenterology, please place the appropriate referral. Order Questions Question Answer Procedure Location: [place] Facility: [facility] Associated Diagnoses Pancreatic mass [K86.89] Encounter View Encounter Reprint Requisition EGD, W/ENDOSCOPIC US (Order #[id number]) on 10/09/23 Detailed Information Priority and Order Details Reference Links Acct Guarantor Acct Type [id number] ANDRADE MCFARLANE Personal/Family [1] Service Location Name Address Phone [address] [phone] Currently Active Insurance Payor Plan Subscriber Member ID MEDICARE MEDICARE A AND B ANDRADE MCFARLANE [id number] [facility] HEALTH BENEFITS [employer] DONA MCFARLANE [id number] documented in this encounter Plan of Treatment Upcoming Encounters Date Type Department Care Team (Latest Contact Info) Description 9:20 AM EST Anticoagulation Pharmacy, [facility] [place] [address] [place] [address] [address] Pharmacist1, [facility] [address] [place] [address] 4 8:45 AM EST Hospital Encounter ENDO [facility], Endoscopy Room [facility] [address] [place], [place] [phone] Sylvia Horta, DO [address] [place] [address] 4 8:45 AM EST - 4 9:30 AM EST Surgery ENDO [facility], Endoscopy Room [facility] [address] [place], [place] [phone] Sylvia Horta, DO [address] [place] [address] ESOPHAGOGASTRODUODENOSCOPY (EGD), FLEXIBLE, TRANSORAL, ENDOSCOPIC ULTRASOUND 4 3:30 PM EDT Office Visit Cardiology, [facility] [address] [place] [address] Gabi Nolan CRNP [address] [place] [address] 4 2:00 PM EDT Office Visit Dermatology [facility] [place] [address] [place] [address] Lorenzo Hoyt MD [address] [place] [address] 4 10:20 AM EDT Office Visit Family Practice [facility] [place] [address] [place] [address] Luis Espinoza, DO [address] [place] [address] Scheduled Procedures Name Priority Associated Diagnoses Date/Ti me ESOPHAGOGASTRODUODENOSCOPY ( EGD), FLEXIBLE, TRANSORAL, ENDOSCOPIC ULTRASOUND Pancreatic cyst 10/22/2023 8:45 AM EST Health Maintenance Due Date Last Done Comments Depression Screening 08/11/2021 08/11/2020 COVID-19 Vaccine ( - 2022- season) 2023 11/15/2022, 07/04/2021, 10/30/2020, Additional history [...] this encounter Medical Devices Implanted Type Area Filtering Machine Tender Helper Device Identifier Shelf Expiration Date Model / Serial / Lot Clip Quick 2.8mm 230cm - [id number] Implanted:Qty: 1 on 08/19/2022 by Jojo Pearson MD at ENDOSCOPY [facility] [employer] 12/29/2024 [id number]-202UR.A / / [id number] documented as of this encounter Advance Directives Documents on File Type Date Recorded Patient Asset Protection Specialist Expl anation Advance Directives and Living Will 09/28/2016 LIVING WILL Care Teams Dry House Tender Relationship Specialty Start Date End Date Luis Espinoza DO [address] [place] [address] [place] [address] PCP - General Family Medicine 02/16/17 documented as of this encounter
--- OUTSIDE RECORDS SUMMARY | 2023-10-29 11:51 | External Medical Summary | Summary of Care ---
Author Name Unknown Organization [facility] Address [address] [facility] [address] Phone [phone] Care Team Providers Care Stitcher Hand Name Role Phone Luis Espinoza DO Primary Care Provider [phone] Reason for Visit * Reason Onset Date Comments Test Results 10/09/2023 Encounter Details Date Type Department Care Team (Late st Contact Info) Description 10/09/2023 Telephone Cardiology, [facility] [address] [facility] [place] [address] Gabi Putnam CRNP [address] [facility] [address] Test Results Allergies Active Allergy Reactions Criticality [...] 10 MG Oral Tablet (Norvasc)Indicatio ns:History of MA (myocardial infarction) Take 1 Tablet by mouth [...] 09/03/2022 Chronic atrial fibrillation 02/28/2020 History of MA (myocardial infarction) 05/23/2017 History of nonmelanoma skin cancer 04/22/2017 Overview: 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 cheek - 2015 Hx of BCC on left cheek - 2014 Coronary artery disease invo lving [place] coronary artery of [place] heart without angina pectoris 11/19/2016 History of basal cell carcinoma of skin 05/24/20 15 documented as of this encounter (statuses as of 10/14/2023) Resolved Problems Problem Noted Date Diagnosed Date Resolved Date Chronic kidney disease, stage 3a 11/12/2021 08/13/2022 Overview: Per CKD protocol Prediabetes 12/09/2017 06/02/2018 Overview: Per Prediabetes protocol #1 Chronic atrial fibrillation 11/25/2017 12/01/2018 History of MA (myocardial infarction) 05/23/2017 05/23/2017 Paroxysmal atrial fibrillation 05/24/2015 10/04/2021 Bipolar disorder, in full re mission, most recent episode depressed 05/24/2015 02/12/2023 Atrial fibrillation and flutter 05/24/2015 S/P CABG (coronary artery bypass graft) 05/23/2017 MA (myocardial infarction) 0 05/23/2017 Overview: 3 in [...] 10/09/2023 4:50 PM EST Sent patient a Payvmentt message to make aware. Awaiting reply. ----- [...] Description 10/20/2023 9:20 AM EST Anticoagulation Pharmacy, [facility] [address] [facility] [place] [address] Pharmacist1, [facility] [address] [place] [address] 11/14/2023 3:30 PM EDT Office Visit [facility]iology, [facility] [place] [address] Gabi Putnam CRNP [address] [facility] [place] [address] 04/09/2024 2:00 PM EDT Office Visit Dermatology [facility] [address] [place] [address] [address] Lorenzo Hoyt MD 200 [place] [address] 04/14/2024 10:20 AM EDT Office Visit Family Practice [facility] [address] [place] [address] [address] Luis Espinoza, DO [address] [place] [address] [address] Scheduled Orders Name Type Priority Associated Diagnoses [...] this encounter Medical Devices Implanted Type Area Casing Material Weigher Device Identifier Shelf Expiration Date Model / Serial / Lot Clip Quick 2.8mm 230cm - [id number] Implanted:Qty: 1 on 08/19/2022 by Jojo Pearson MD at ENDOSCOPY [facility] [employer] 12/29/2024 [id number]-202UR.[id number] / / [id number] documented as of this encounter Visit Diagnoses Diagnosis S/P CABG (coronary artery bypass graft) Postsurgical aortocoronary bypass status ST elevation myocardial infarction (STEMI), unspecified artery (HCC) documented in this encounter Advance Directives Documents on File Type Date Recorded Patient Naturalization Examiner Expl anation Advance Directives and Living Will 09/28/2016 LIVING WILL Care Teams Stitcher Hand Relationship Specialty Start Date End Date Luis Espinoza DO [address] [place] [address] PCP - General Family Medicine 02/16/17 documented as of this encounter
--- OUTSIDE RECORDS SUMMARY | 2023-10-29 11:51 | External Medical Summary | Summary of Care ---
Author Name Unknown Organization [facility] Address [address] [place] [address] Phone [phone] Care Team Providers Care Dehairing Machine Tender Name Role Phone Luis Espinoza DO Primary Care Provider [phone] Reason for Visit * Reason Onset Date Comments Appointment 10/13/2023 EGD/EUS Encounter Details Date Type Department Care Team (Late st Contact Info) Description 10/13/2023 Telephone Gastroenterology, [place] [address] [place] [address] Specified, [facility] [address] [place] [address] Appointment (EGD/EUS) Allergies Active Allergy [...] 10 MG Oral Tablet (Norvasc)Indications :History of WI (myocardial infarction) Take 1 Tablet by mouth [...] 09/03/2022 Chronic atrial fibrillation 02/28/2020 History of WI (myocardial infarction) 05/23/2017 History of nonmelanoma skin cancer 04/22/2017 Overview: 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 cheek - 2015 Hx of BCC on left cheek - 2014 Coronary artery disease invo lving [place] coronary artery of [place] heart without angina pectoris 11/19/2016 History of basal cell carcinoma of skin 05/24/20 15 documented as of this encounter (statuses as of 10/14/2023) Resolved Problems Problem Noted Date Diagnosed Date Resolved Date Chronic kidney disease, stage 3a 11/12/2021 08/13/2022 Overview: Per CKD protocol Prediabetes 12/09/2017 06/02/2018 Overview: Per Prediabetes protocol #1 Chronic atrial fibrillation 11/25/2017 12/01/2018 History of WI (myocardial infarction) 05/23/2017 05/23/2017 Paroxysmal atrial fibrillation 05/24/2015 10/04/2021 Bipolar disorder, in full re mission, most recent episode depressed 05/24/2015 02/12/2023 Atrial fibrillation and flutter 05/24/2015 S/P CABG (coronary artery bypass graft) 05/23/2017 WI (myocardial infarction) 0 05/23/2017 Overview: 3 in [...] 30 Mcg, IM, 12 yrs and above (In [place]) 11/15/2022 H1N1 2009 Influenza, IM 09/04/2009 HEP [...] 10:59 AM EST Order EGD, W/ENDOSCOPIC US [[id number]] (Order [id number]) Andrade Naman Maeve 10/09/2023 12:12 PM Telephone Description: 83 year old male Provider: Luis Espinoza DO Department: LABORATORY [facility] Order Information Date and Time Department Ordering/Authorizing 10/09/2023 3:15 PM Laboratory [facility] [place] Espinoza DO Order Providers Authorizing Provider Encounter Provider ([id number]) Luis Espinoza DO ([id number]) Luis Espinoza DO Priority and Order Details Priority Class Routine Site Quantity Ordering Quantity 1 Collection Information Comments This order is for a procedure only. If you are referring the patient to Gastroenterology, please place the appropriate referral. Order Questions Question Answer Procedure Location: [place] Facility: [facility] Associated Diagnoses Pancreatic mass [K86.89] Encounter View Encounter Reprint Requisition EGD, W/ENDOSCOPIC US (Order #[id number]) on 10/09/23 Detailed Information Priority and Order Details Reference Links Acct Guarantor Acct Type [id number] ANDRADE MCFARLANE Personal/Family [1] Service Location Name Address [address] [phone] Currently Active Insurance Payor Plan Subscriber Member ID MEDICARE MEDICARE A AND B ANDRADE MCFARLANE [id number] [facility] [employer] [employer] DONA MCFARLANE [id number] documented in this encounter Plan of Treatment Upcoming Encounters Date Type Department Care Team (Late st Contact Info) Description 10/20/2023 9:20 AM EST Anticoagulation Pharmacy, [facility] [place] [address] [place] [address] Pharmacist1, [facility] [address] [place] [address] 11/14/2023 3:30 PM EDT Office Visit Cardiology, [facility] 132 [facility] [place] [address] Gabi Nolan CRNP [address] [place] [address] 04/09/2024 2:00 PM EDT Office Visit Dermatology [facility] 200 [facility] [place] [address] Lorenzo Hoyt MD 200 [facility] [place] [address] 04/14/2024 10:20 AM EDT Office Visit Family Practice [facility] [address] [facility] [place] [address] Luis Espinoza DO [address] [facility] [place] [address] Health Maintenance Due Date Last Done Comments [...] this encounter Medical Devices Implanted Type Area Instructor Flying Device Identifier Shelf Expiration Date Model / Serial / Lot Clip Quick 2.8mm 230cm - [id number] Implanted:Qty: 1 on 08/19/2022 by Jojo Pearson MD at ENDOSCOPY [facility] [employer] 12/29/2024 HX-202UR.A / / [id number] documented as of this encounter Advance Directives Documents on File Type Date Recorded Patient Swim Coach Expl anation Advance Directives and Living Will 09/28/2016 LIVING WILL Care Teams Dehairing Machine Tender Relationship Specialty Start Date End Date Luis Espinoza DO 200 [place] [address] PCP - General Family Medicine 02/16/17 documented as of this encounter
--- OUTSIDE RECORDS SUMMARY | 2023-10-29 11:52 | External Medical Summary | Summary of Care ---
Author Name Unknown Organization [facility] Address [address] [place] [address] Phone [phone] Care Team Providers Care Senior Sales Operations Manager Name Role Phone Bubba Maier DO Primary Care Provider [phone] Reason for Visit * Reason Onset Date Comments Test Results 10/09/2023 Encounter Details Date Type Department Care Team (Late st Contact Info) Description 10/09/2023 Telephone Laboratory, [place] [address] [place] [address] Bubba Maier DO [address] [place] [address] Test Results Allergies Active Allergy Reactions Criticality Noted Date Comments Pollen 08/13/2017 Hay fever per patient documented as of this encounter (statuses as of 10/10/2023) Medications Medication Sig Dispensed Refills Start Date [...] 10 MG Oral Tablet (Norvasc)Indications :History of CO (myocardial infarction) Take 1 Tablet by mouth [...] as of this encounter (statuses as of 10/10/2023) Active Problems Problem Noted Date Diagnosed Date Permanent atrial fibrillation 09/23/2023 Bipolar 1 disorder 02/12/2023 Inguinal hernia of left side without obstruction or gangrene 09/03/2022 Hypertension 09/03/2022 Chronic atrial fibrillation 02/28/2020 History of CO (myocardial infarction) 05/23/2017 History of nonmelanoma skin cancer 04/22/2017 Overview: 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 cheek - 2015 Hx of BCC on left cheek - 2014 Coronary artery disease invo lving [place] coronary artery of [place] heart without angina pectoris 11/19/2016 History of basal cell carcinoma of skin 05/24/20 15 documented as of this encounter (statuses as of 10/10/2023) Resolved Problems Problem Noted Date Diagnosed Date Resolved Date Chronic kidney disease, stage 3a 11/12/2021 08/13/2022 Overview: Per CKD protocol Prediabetes 12/09/2017 06/02/2018 Overview: Per Prediabetes protocol #1 Chronic atrial fibrillation 11/25/2017 12/01/2018 History of CO (myocardial infarction) 05/23/2017 05/23/2017 Paroxysmal atrial fibrillation 05/24/2015 10/04/2021 Bipolar disorder, in full re mission, most recent episode depressed 05/24/2015 02/12/2023 Atrial fibrillation and flutter 05/24/2015 S/P CABG (coronary artery bypass graft) 05/23/2017 CO (myocardial infarction) 0 05/23/2017 Overview: 3 in 2011 - 3 stents and an ablation done Manic episode 11/19/2016 Bipolar disorder (manic depression) 05/24/2015 documented as of this encounter (statuses as of 10/10/2023) Immunizations Name Administration Dates Next Due COVID-19 mRNA, LNP-s, No Pre serve, 2-Dose Series (Moderna) 10/30/2020,09/27/2020 COVID-19, mRNA, LNP-s, PF, B ooster, 100mcg/0.5mg (Moderna) 07/04/2021 Covid-19, Mrna, Lnp-s, Pf, B ivalent, 30 Mcg, IM, 12 yrs and above ([employer]) 11/15/2022 H1N1 2009 Influenza, IM 09/04/2009 HEP [...] encounter Miscellaneous Notes * Telephone Encounter - Yany Solorzano OSA - 10/10/2023 10:26 AM EST LMOM 10/10/2023 RMK * Addendum Note - Bubba Maier DO - 10/09/2023 3:16 PM ESTAddended by: BUBBA MAIER on: 10/09/2023 03:16 PM Modules accepted: Orders * Telephone Encounter - Bubba Maier DO - 10/09/2023 3:10 PM EST I called over and talked to Andrade and his about the results. Doesn't currently look like cancer. We discussed options and he chose to go with an endoscopic ultrasound. Will also recheck kidney function in a month. Please call to schedule. * Telephone Encounter - Arlene Lino OSA - 10/09/2023 12:12 PM EST Hello- The radiologist discovered an unexpected or indeterminate finding on Andrade Mcfarlane ([id number]) and asks that you review the following report. Study Type: MRI ABDOMEN W WO CONTRAST Date of Study: 10/08/2023 IMPRESSION: 1. 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 2. Nodular appearance of the uncinate process similar to recent CT without definite mass. This could represent prominent pancreatic parenchyma on background of mild atrophy and fatty infiltration. Consider endoscopic ultrasound or if conservative management is desired, recommend short-term follow-up imaging in 3 months to evaluate for stability. Please respond to this encounter to acknowledge receipt of this message and take responsibility to ensure this report is reviewed. Thank you, JOHNNY Darling Client Service Rep [facility] [place] documented in this encounter Plan of Treatment Upcoming Encounters Date Type Department Care Team (Late st Contact Info) Description 10/20/2023 9:20 AM EST Anticoagulation Pharmacy, [facility] [address] [facility] [place] [address] Pharmacist1, [facility] [address] [facility] [place] [address] 11/14/2023 3:30 PM EDT Office Visit Cardiology, [facility] [address] [place] [address] Gabi Nolan CRNP [address] [place] [address] 04/09/2024 2:00 PM EDT Office Visit Dermatology [facility] [address] [facility] [place] [address] Lorenzo Hoyt MD 200 [facility] [place] [address] 04/14/2024 10:20 AM EDT Office Visit Family Practice [facility] 200 [facility] [place] [address] Bubba Maier DO 200 [facility] [place] [address] Scheduled Orders Name Type Priority Associated Diagnoses Orde r Schedule BASIC METABOLIC PANEL Lab Routine XIOMY (acute kidney injury) (HCC) Expected: 11/07/2023 (Approximate), Expires: 10/08/2024 EGD, W/ENDOSCOPIC US Procedures Routine Pancreatic mass Ordered: 10/09/2023 Health Maintenance Due Date Last Done Comments [...] this encounter Medical Devices Implanted Type Area Wick Tender Device Identifier Shelf Expiration Date Model / Serial / Lot Clip Quick 2.8mm 230cm - [id number] Implanted:Qty: 1 on 08/19/2022 by Jojo Pearson MD at ENDOSCOPY [facility] [employer] 12/29/2024 HX-202UR.A / / [id number] documented as of this encounter Visit Diagnoses Diagnosis XIOMY (acute kidney injury) (HCC)- Primary Acute kidney failure, unspecified Pancreatic mass Unspecified disease of pancreas documented in this encounter Advance Directives Documents on File Type Date Recorded Patient Package Checker Expl anation Advance Directives and Living Will 09/28/2016 LIVING WILL Care Teams Senior Sales Operations Manager Relationship Specialty Start Date End Date Bubba Maier DO [address] [place] [address] PCP - General Family Medicine 02/16/17 documented as of this encounter
--- OUTSIDE RECORDS SUMMARY | 2023-10-29 11:52 | External Medical Summary | Summary of Care ---
Author Name Unknown Organization [facility] Address [address] [facility] [place] [address] Phone [phone] Care Team Providers Care Dry End Tester Name Role Phone Luis Espinoza DO Primary Care Provider [phone] Reason for Visit * Reason Onset Date Comments Test Results 10/09/2023 Encounter Details Date Type Department Care Team (Late st Contact Info) Description 10/09/2023 Telephone Cardiology, [facility] [address] [facility] [place] [address] Gabi Nolan CRNP [address] 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 cheek - 2015 Hx of BCC on left cheek - 2014 Coronary artery disease invo lving [place] coronary artery of [place] heart without angina pectoris 11/19/2016 History of basal cell carcinoma of skin 05/24/20 15 documented as of this encounter (statuses as of 10/10/2023) Resolved Problems Problem Noted Date Diagnosed Date Resolved Date Chronic kidney disease, stage 3a 11/12/2021 08/13/2022 Overview: Per CKD protocol Prediabetes 12/09/2017 06/02/2018 Overview: Per Prediabetes protocol #1 Chronic atrial fibrillation 11/25/2017 12/01/2018 History of NM (myocardial infarction) 05/23/2017 05/23/2017 Paroxysmal atrial fibrillation 05/24/2015 10/04/2021 Bipolar disorder, in full re mission, most recent episode depressed 05/24/2015 02/12/2023 Atrial fibrillation and flutter 05/24/2015 S/P CABG (coronary artery bypass graft) 05/23/2017 NM (myocardial infarction) 0 05/23/2017 Overview: 3 in [...] encounter Miscellaneous Notes * Telephone Encounter - Gabi Nolan CRNP - 10/10/2023 9:28 AM EST MyG sent. Future considerations of reducing lisinopril and increasing coreg vs adding hydralazine. * Telephone Encounter - Luis Enrique Parish LPN - 10/10/2023 9:24 AM EST Please see patient's MyChart reply. * Telephone Encounter - Luis Enrique Parish LPN - 10/09/2023 4:50 PM EST Sent patient a EarDish message to make aware. Awaiting reply. ----- [...] Description 10/20/2023 9:20 AM EST Anticoagulation Pharmacy, [facility] [address] [place] [address] [address] [address] Pharmacist1, [facility] [address] [place] [address] 11/14/2023 3:30 PM EDT Office Visit Cardiology, [facility] [address] [place] [address] Gabi Nolan CRNP [address] [place] [address] 04/09/2024 2:00 PM EDT Office Visit Dermatology [facility] 200 [facility] [place] [address] Lorenzo Hoyt MD 200 [facility] [place] [address] 04/14/2024 10:20 AM EDT Office Visit Family Practice [facility] 200 [facility] [place] [address] Luis Espinoza DO 200 [facility] [place] [address] Health Maintenance Due Date Last Done Comments [...] this encounter Medical Devices Implanted Type Area Manager Grocery Device Identifier Shelf Expiration Date Model / Serial / Lot Clip Quick 2.8mm 230cm - [id number] Implanted:Qty: 1 on 08/19/2022 by Jojo Pearson MD at ENDOSCOPY [facility] [employer] 12/29/2024 HX-202UR.A / / [id number] documented as of this encounter Advance Directives Documents on File Type Date Recorded Patient Welder/Fabricator Expl anation Advance Directives and Living Will 09/28/2016 LIVING WILL Care Teams Dry End Tester Relationship Specialty Start Date End Date Luis Espinoza DO [address] [place] [address] PCP - General Family Medicine 02/16/17 documented as of this encounter
--- OUTSIDE RECORDS SUMMARY | 2023-10-29 11:52 | External Medical Summary | Summary of Care ---
Author Name Unknown Organization [facility] Address [address] [facility] [address] Phone [phone] Care Team Providers Care Welder Fitter Arc Name Role Phone Luis Espinoza DO Primary Care Provider [phone] Reason for Visit * Reason Onset Date Comments Test Results 10/09/2023 Encounter Details Date Type Department Care Team (Late st Contact Info) Description 10/09/2023 Telephone Cardiology, [facility] [address] [facility] [place] [address] Gabi Nolan CRNP [address] [facility] [address] Test Results Allergies Active Allergy Reactions Criticality [...] 10 MG Oral Tablet (Norvasc)Indications :History of ME (myocardial infarction) Take 1 Tablet by mouth [...] 09/03/2022 Chronic atrial fibrillation 02/28/2020 History of ME (myocardial infarction) 05/23/2017 History of nonmelanoma skin cancer 04/22/2017 Overview: 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 cheek - 2015 Hx of BCC on left cheek - 2014 Coronary artery disease invo lving [place] coronary artery of [place] heart without angina pectoris 11/19/2016 History of basal cell carcinoma of skin 05/24/20 15 documented as of this encounter (statuses as of 10/10/2023) Resolved Problems Problem Noted Date Diagnosed Date Resolved Date Chronic kidney disease, stage 3a 11/12/2021 08/13/2022 Overview: Per CKD protocol Prediabetes 12/09/2017 06/02/2018 Overview: Per Prediabetes protocol #1 Chronic atrial fibrillation 11/25/2017 12/01/2018 History of ME (myocardial infarction) 05/23/2017 05/23/2017 Paroxysmal atrial fibrillation 05/24/2015 10/04/2021 Bipolar disorder, in full re mission, most recent episode depressed 05/24/2015 02/12/2023 Atrial fibrillation and flutter 05/24/2015 S/P CABG (coronary artery bypass graft) 05/23/2017 ME (myocardial infarction) 0 05/23/2017 Overview: 3 in [...] 10/09/2023 4:50 PM EST Sent patient a BurudaConcert message to make aware. Awaiting reply. ----- [...] Description 10/20/2023 9:20 AM EST Anticoagulation Pharmacy, [facility] [address] [place] [address] [address] Pharmacist1, [facility] [address] [place] [address] 11/14/2023 3:30 PM EDT Office Visit Cardiology, [facility] [address] [place] [address] Gabi Nolan CRNP [address] [place] [address] 04/09/2024 2:00 PM EDT Office Visit Dermatology [facility] 200 [facility] [place] [address] Lorenzo Hoyt MD 200 [facility] [place] [address] 04/14/2024 10:20 AM EDT Office Visit Family Practice [facility] 200 [facility] [place] [address] Luis Espinoza DO 200 [facility] [place] [address] Health Maintenance Due Date Last Done Comments [...] this encounter Medical Devices Implanted Type Area Theoretical Physicist Device Identifier Shelf Expiration Date Model / Serial / Lot Clip Quick 2.8mm 230cm - [id number] Implanted:Qty: 1 on 08/19/2022 by Jojo Pearson MD at ENDOSCOPY [facility] [employer] 12/29/2024 HX-202UR.A / / [id number] documented as of this encounter Advance Directives Documents on File Type Date Recorded Patient Team Manager Expl anation Advance Directives and Living Will 09/28/2016 LIVING WILL Care Teams Welder Fitter Arc Relationship Specialty Start Date End Date Luis Espinoza DO [address] [place] [address] PCP - General Family Medicine 02/16/17 documented as of this encounter
--- OUTSIDE RECORDS SUMMARY | 2023-10-29 11:52 | External Medical Summary | Summary of Care ---
Author Name Unknown Organization [facility] Address [address] [place] [address] Phone [phone] Care Team Providers Care Netsuite Developer Name Role Phone Bubba Maier DO Primary Care Provider [phone] Reason for Visit * Reason Onset Date Comments Test Results 10/09/2023 Encounter Details Date Type Department Care Team (Late st Contact Info) Description 10/09/2023 Telephone Laboratory, [place] [address] [place] [address] Bubba Maier DO [address] [place] [address] Test Results Allergies Active Allergy Reactions Criticality Noted Date Comments Pollen 08/13/2017 Hay fever per patient documented as of this encounter (statuses as of 10/13/2023) Medications Medication Sig Dispensed Refills Start Date [...] 10 MG Oral Tablet (Norvasc)Indications :History of OR (myocardial infarction) Take 1 Tablet by mouth [...] as of this encounter (statuses as of 10/13/2023) Active Problems Problem Noted Date Diagnosed Date Permanent atrial fibrillation 09/23/2023 Bipolar 1 disorder 02/12/2023 Inguinal hernia of left side without obstruction or gangrene 09/03/2022 Hypertension 09/03/2022 Chronic atrial fibrillation 02/28/2020 History of OR (myocardial infarction) 05/23/2017 History of nonmelanoma skin cancer 04/22/2017 Overview: 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 cheek - 2015 Hx of BCC on left cheek - 2014 Coronary artery disease invo lving [place] coronary artery of [place] heart without angina pectoris 11/19/2016 History of basal cell carcinoma of skin 05/24/20 15 documented as of this encounter (statuses as of 10/13/2023) Resolved Problems Problem Noted Date Diagnosed Date Resolved Date Chronic kidney disease, stage 3a 11/12/2021 08/13/2022 Overview: Per CKD protocol Prediabetes 12/09/2017 06/02/2018 Overview: Per Prediabetes protocol #1 Chronic atrial fibrillation 11/25/2017 12/01/2018 History of OR (myocardial infarction) 05/23/2017 05/23/2017 Paroxysmal atrial fibrillation 05/24/2015 10/04/2021 Bipolar disorder, in full re mission, most recent episode depressed 05/24/2015 02/12/2023 Atrial fibrillation and flutter 05/24/2015 S/P CABG (coronary artery bypass graft) 05/23/2017 OR (myocardial infarction) 0 05/23/2017 Overview: 3 in 2011 - 3 stents and an ablation done Manic episode 11/19/2016 Bipolar disorder (manic depression) 05/24/2015 documented as of this encounter (statuses as of 10/13/2023) Immunizations Name Administration Dates Next Due COVID-19 mRNA, LNP-s, No Pre serve, 2-Dose Series (Moderna) 10/30/2020,09/27/2020 COVID-19, mRNA, LNP-s, PF, B ooster, 100mcg/0.5mg (Moderna) 07/04/2021 Covid-19, Mrna, Lnp-s, Pf, B ivalent, 30 Mcg, IM, 12 yrs and above (Memobox) 11/15/2022 H1N1 2009 Influenza, IM 09/04/2009 HEP [...] Telephone Encounter - Yany Solorzano OSA - 10/13/2023 1:01 PM EST Sent to [facility] Scheduling * Telephone Encounter - Yany Solorzano OSA [...] unexpected or indeterminate finding on Andrade Mcfarlane ([id number]) and asks that you review the following [...] reviewed. Thank you, JOHNNY Darling Client Service [facility] documented in this encounter Plan of Treatment Upcoming Encounters Date Type Department Care Team (Late st Contact Info) Description 10/20/2023 9:20 AM EST Anticoagulation Pharmacy, [facility] [address] [place], [place] [address] Pharmacist1, [facility] 200 [facility] [place] [address] 11/14/2023 3:30 PM EDT Office Visit Cardiology, [facility] [address] [facility] [place] [address] Gabi Nolan CRNP [address] [place] [address] 04/09/2024 2:00 PM EDT Office Visit Dermatology [facility] 200 [facility] [place] [address] Lorenzo Hoyt MD [address] [facility] [place] [address] 04/14/2024 10:20 AM EDT Office Visit Family Practice [facility] [address] [facility] [place] [address] Bubba Maier DO [address] [facility] [address] [place], [place] [address] Scheduled Orders Name Type Priority Associated Diagnoses [...] this encounter Medical Devices Implanted Type Area Desktop Support Specialist Device Identifier Shelf Expiration Date Model / Serial / Lot Clip Quick 2.8mm 230cm - [id number] Implanted:Qty: 1 on 08/19/2022 by Jojo Pearson MD at ENDOSCOPY [facility] [employer] 12/29/2024 [id number]-202UR.[id number] / [id number] documented as of this encounter Visit Diagnoses Diagnosis XIOMY (acute kidney injury) (HCC)- Primary Acute kidney failure, unspecified Pancreatic mass Unspecified disease of pancreas documented in this encounter Advance Directives Documents on File Type Date Recorded Patient Certified Physician Assistant Expl anation Advance Directives and Living Will 09/28/2016 LIVING WILL Care Teams Netsuite Developer Relationship Specialty Start Date End Date Bubba Maier DO [facility] [place] [address] PCP - General Family Medicine 02/16/17 documented as of this encounter
--- OUTSIDE RECORDS SUMMARY | 2023-10-29 11:52 | External Medical Summary | Summary of Care ---
Author Name Unknown Organization [facility] Address [address] [facility] [place] [address] Phone [phone] Care Team Providers Care Chemical Unit Operator Name Role Phone Luis Espinoza DO Primary Care Provider [phone] Reason for Visit * Reason Onset Date Comments Test Results 10/09/2023 Encounter Details Date Type Department Care Team (Late st Contact Info) Description 10/09/2023 Telephone Cardiology, [facility] [address] [facility] [place] [address] Gabi Putnam CRNP [address] [facility] [address] Test Results Allergies Active Allergy Reactions Criticality [...] 10 MG Oral Tablet (Norvasc)Indications :History of NH (myocardial infarction) Take 1 Tablet by mouth [...] 09/03/2022 Chronic atrial fibrillation 02/28/2020 History of NH (myocardial infarction) 05/23/2017 History of nonmelanoma skin cancer 04/22/2017 Overview: 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 cheek - 2015 Hx of BCC on left cheek - 2014 Coronary artery disease invo lving [place] coronary artery of [place] heart without angina pectoris 11/19/2016 History of basal cell carcinoma of skin 05/24/20 15 documented as of this encounter (statuses as of 10/10/2023) Resolved Problems Problem Noted Date Diagnosed Date Resolved Date Chronic kidney disease, stage 3a 11/12/2021 08/13/2022 Overview: Per CKD protocol Prediabetes 12/09/2017 06/02/2018 Overview: Per Prediabetes protocol #1 Chronic atrial fibrillation 11/25/2017 12/01/2018 History of NH (myocardial infarction) 05/23/2017 05/23/2017 Paroxysmal atrial fibrillation 05/24/2015 10/04/2021 Bipolar disorder, in full re mission, most recent episode depressed 05/24/2015 02/12/2023 Atrial fibrillation and flutter 05/24/2015 S/P CABG (coronary artery bypass graft) 05/23/2017 NH (myocardial infarction) 0 05/23/2017 Overview: 3 in [...] 10/09/2023 4:50 PM EST Sent patient a Wedding Party message to make aware. Awaiting reply. ----- [...] Description 10/20/2023 9:20 AM EST [facility] 200 [place] [address] Pharmacist1, [facility] [address] [facility] [place] [address] 11/14/2023 3:30 PM EDT Office Visit Cardiology, [facility] [address] [place] [address] Gabi Putnam CRNP [address] [place] [address] 04/09/2024 2:00 PM EDT Office Visit Dermatology [facility] [place] [address] Lorenzo Hoyt MD 200 [facility] [place] [address] 04/14/2024 10:20 AM EDT Office Visit Family Practice [facility] [address] [facility] [place] [address] Luis Espinoza, 200 [facility] [place] [address] Health Maintenance Due Date Last Done Comments [...] this encounter Medical Devices Implanted Type Area Microstrategy Architect Device Identifier Shelf Expiration Date Model / Serial / Lot Clip Quick 2.8mm 230cm - [id number] Implanted:Qty: 1 on 08/19/2022 by Jojo Pearson MD at ENDOSCOPY [facility] [employer] [facility] 12/29/2024 [id number]-[id number] / / [id number] documented as of this encounter Visit Diagnoses Diagnosis S/P CABG (coronary artery bypass graft) Postsurgical aortocoronary bypass status ST elevation myocardial infarction (STEMI), unspecified artery (HCC) documented in this encounter Advance Directives Documents on File Type Date Recorded Patient Tail Sawyer Expl anation Advance Directives and Living Will 09/28/2016 LIVING WILL Care Teams Chemical Unit Operator Relationship Specialty Start Date End Date Luis Espinoza DO [address] [place] [address], [place] [address] PCP - General Family Medicine 02/16/17 documented as of this encounter
--- OUTSIDE RECORDS SUMMARY | 2023-10-29 11:53 | External Medical Summary | Summary of Care ---
Author Name Unknown Organization [facility] Address [address] [place] [address] Phone [phone] Care Team Providers Care Director Of Mobile Marketing Name Role Phone Luis Espinoza DO Primary Care Provider [phone] Reason for Visit * Precert (Within 10 days (routine)) - Authorized Specialty Diagnoses / Procedures Referred By Contac t Referred To Contact Radiology Diagnoses Pancreatic mass Procedures MRI ABDOMEN W WO CONTRAST Luis Espinoza DO [address] [place] [address] Referral ID Status Reason Start Date Expiration Date V isits Requested Visits Authorized [id number] Authorized 10/01/2023 [id number] Encounter Details Date Type Department Care Team (Latest Contact Info) Description 10/08/2023 5:53 PM EST - 10/08/2023 11:59 PM EST Hospital Encounter Radiology, [address] [address] Arrived Discharge Disposition: Home - Self Care Allergies Active Allergy Reactions Criticality Noted Date Comments Pollen 08/13/2017 Hay fever per patient documented as of this encounter (statuses as of 10/09/2023) Medications Medication Sig Dispensed Refills Start Date [...] 10 MG Oral Tablet (Norvasc)Indications :History of MD (myocardial infarction) Take 1 Tablet by mouth [...] before bedtime. 204 Tablet 3 10/02/2023 Active Hospital, Clinic, or Other Facility Administered Medication Ordered Dose Route Frequency Start Date End Date Status sodium chloride 0.9 % flush/inj 10 mL 10 mL IV PUSH ONCE 10/08/2023 10/08/2023 Ended documented as of this encounter (statuses as of 10/09/2023) Active Problems Problem Noted Date Diagnosed Date Permanent atrial fibrillation 09/23/2023 Bipolar 1 disorder 02/12/2023 Inguinal hernia of left side without obstruction or gangrene 09/03/2022 Hypertension 09/03/2022 Chronic atrial fibrillation 02/28/2020 History of MD (myocardial infarction) 05/23/2017 History of nonmelanoma skin cancer 04/22/2017 Overview: 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 cheek - 2015 Hx of BCC on left cheek - 2014 Coronary artery disease invo lving [place] coronary artery of [place] heart without angina pectoris 11/19/2016 History of basal cell carcinoma of skin 05/24/20 15 documented as of this encounter (statuses as of 10/09/2023) Resolved Problems Problem Noted Date Diagnosed Date Resolved Date Chronic kidney disease, stage 3a 11/12/2021 08/13/2022 Overview: Per CKD protocol Prediabetes 12/09/2017 06/02/2018 Overview: Per Prediabetes protocol #1 Chronic atrial fibrillation 11/25/2017 12/01/2018 History of MD (myocardial infarction) 05/23/2017 05/23/2017 Paroxysmal atrial fibrillation 05/24/2015 10/04/2021 Bipolar disorder, in full re mission, most recent episode depressed 05/24/2015 02/12/2023 Atrial fibrillation and flutter 05/24/2015 S/P CABG (coronary artery bypass graft) 05/23/2017 MD (myocardial infarction) 0 05/23/2017 Overview: 3 in 2011 - 3 stents and an ablation done Manic episode 11/19/2016 Bipolar disorder (manic depression) 05/24/2015 documented as of this encounter (statuses as of 10/09/2023) Immunizations Name Administration Dates Next Due COVID-19 [...] Description 10/20/2023 9:20 AM EST Anticoagulation Pharmacy, [facility] 200 [facility] [place] [address] Pharmacist1, [facility] 200 [facility] [place] [address] 11/14/2023 3:30 PM EDT Office Visit Cardiology, [facility] [address] [place] [address] Gabi Nolan CRNP [address] [place] [address] 04/09/2024 2:00 PM EDT Office Visit Dermatology [facility] [address] [place] [address] Lorenzo Hoyt MD 200 [facility] [place] [address] 04/14/2024 10:20 AM EDT Office Visit Family Practice [facility] [address] [place] [address] [address] Luis Espinoza, [address] [facility] [place] [address] Health Maintenance Due Date Last Done Comments Depression Screening 08/11/2021 08/11/2020 COVID-19 Vaccine (2022- season) 2023 11/15/2022, 07/04/2021, 10/30/2020, Additional history exists GFR 10/01/2024 10/01/2023, 09/02, 03/20/2023, Additional history exists Albumin/Creatinine Ratio 03/20/2026 03/20/2023 [...] this encounter Medical Devices Implanted Type Area Peanut Sorter Device Identifier Shelf Expiration Date Model / Serial / Lot Clip Quick 2.8mm 230cm - [id number] Implanted:Qty: 1 on 08/19/2022 by Jojo Pearson MD at ENDOSCOPY [facility] [employer] 12/29/2024 [id number]-202UR.A / / [id number] documented as of this encounter Procedures Procedure Name Priority Date/Time Associated Diagnosis Comments MRI ABDOMEN W WO CONTRAST Routine 10/08/2023 7:40 PM EST Pancreatic mass documented in this encounter Results * MRI ABDOMEN W WO CONTRAST (10/08/2023 7:40 PM EST) Anatomical Region Laterality Modality Abdomen Magnetic Resonan ce 10/09/2023 10:1 7 AM EST Narrative 10/09/2023 10:15 AM EST EXAM: MRI ABDOMEN WITHOUT AND WITH CONTRAST HISTORY: pancreatic mass on CT scan COMPARISON: CT abdomen pelvis 09/23/2023 TECHNIQUE: Multiplanar multisequence MRI of the abdomen without and with intravenous contrast was performed and reviewed. CONTRAST: Gadavist intravenously. FINDINGS: LOWER CHEST: Prior median sternotomy. LIVER: The liver is normal in size, [...] There is no main pancreatic duct dilation. SPLEEN: Normal in size without focal lesion. ADRENAL GLANDS: Normal. KIDNEYS: The kidneys are normal in size without hydronephrosis or suspicious mass. Small renal cysts. The right upper pole lesion in question on recent CT represents a simple cyst. BOWEL: The included bowel is normal in caliber. PERITONEUM: No free fluid. LYMPH NODES: There are no enlarged or suspicious abdominal lymph nodes. VESSELS: The abdominal aorta and the origins of the major branches are patent and normal in caliber. The portal venous system is patent. The inferior vena cava, hepatic veins, and renal veins are patent. ABDOMINAL WALL/SOFT TISSUES: Unremarkable. BONES: Mild degenerative changes in the spine. IMPRESSION: 1. A 1.4 cm cystic lesion [...] in 3 months to evaluate for stability. Procedure Note Vikram Callahan MD - 10/09/2023 EXAM: MRI ABDOMEN WITHOUT AND WITH CONTRAST HISTORY: pancreatic mass on CT scan COMPARISON: CT abdomen pelvis 09/23/2023 TECHNIQUE: Multiplanar multisequence MRI of the abdomen without and with intravenouscontrast was performed and reviewed. CONTRAST: Gadavist intravenously. FINDINGS: LOWER CHEST: Prior median sternotomy. LIVER: The liver is normal in size, morphology, and signal intensity.There are few subcentimeter hepatic cysts. BILIARY TREE: No intrahepatic or extrahepatic bile duct dilation. No bileduct filling defect. GALLBLADDER: Cholelithiasis. No evidence of acute cholecystitis. PANCREAS: There is a 1.4 cm unilocular cystic lesion in the head of thepancreas, likely representing side branch IPMN. There is a 1.5 x 1.8 cmnodular region in the uncinate process as on recent CT without definitemass (image 71 series 19). This could represent prominent normalparenchyma in background of mild pancreatic atrophy and fattyinfiltration. There is no main pancreatic duct dilation. SPLEEN: Normal in size without focal lesion. ADRENAL GLANDS: Normal. KIDNEYS: The kidneys are normal in size without hydronephrosis orsuspicious mass. Small renal cysts. The right upper pole lesion inquestion on recent CT represents a simple cyst. BOWEL: The included bowel is normal in caliber. PERITONEUM: No free fluid. LYMPH NODES: There are no enlarged or suspicious abdominal lymph nodes. VESSELS: The abdominal aorta and the origins of the major branches arepatent and normal in caliber. The portal venous system is patent. Theinferior vena cava, hepatic veins, and renal veins are patent. ABDOMINAL WALL/SOFT TISSUES: Unremarkable. BONES: Mild degenerative changes in the spine. IMPRESSION: 1. A 1.4 cm cystic lesion in the head of the pancreas likely representside branch IPMN. 2. Nodular appearance of the uncinate process similar to recent CTwithout definite mass. This could represent prominent pancreaticparenchyma on background of mild atrophy and fatty infiltration. Considerendoscopic ultrasound or if conservative management is desired, recommendshort-term follow-up imaging in 3 months to evaluate for stability. Luis Espinoza DO RAD MRI-MRA documented in this encounter Visit Diagnoses Diagnosis Pancreatic mass Unspecified disease of pancreas documented in this encounter Administered Medications Inactive Administered Medications - up to 3 most recent administrations Medication Order MAR Action Action Date Dose Rate Site gadobutrol (Gadavist) inj 2 mL 2 mL, Intravenous, ONCE, On Fri10/08/23 at 1848, For 1 dose, Radiology Medication Routing (Non-IR) Given 10/08/2023 7:27 PM EST 6.2 mL Antecubital Left sodium chloride 0.9 % flush/inj 10 mL 10 mL, IV Push, ONCE, On Fri10/08/23 at 1848, For 1 dose, Do not flush if lock, PICC, or central line not in place; IV infusing or unable to flush., Radiology Medication Routing (Non-IR) Given 10/08/2023 6:48 PM EST 10 mL Antecubital Left documented in this encounter Advance Directives Documents on File Type Date Recorded Patient Hunter Trapper Expl anation Advance Directives and Living Will 09/28/2016 LIVING WILL Care Teams Director Of Mobile Marketing Relationship Specialty Start Date End Date Luis Espinoza DO [address] [place] [address] PCP - General Family Medicine 02/16/17 documented as of this encounter
--- OUTSIDE RECORDS SUMMARY | 2023-10-29 11:53 | External Medical Summary | Summary of Care ---
Author Name Unknown Organization [facility] Address [address] [place] [address] Phone [phone] Care Team Providers Care Button And Buckle Maker Name Role Phone Luis Espinoza DO Primary Care Provider [phone] Reason for Visit * Reason Onset Date Comments Appointment 10/03/2023 Encounter Details Date Type Department Care Team (Late st Contact Info) Description 10/03/2023 Telephone Radiology, [address] [address] [place], [place] Appointment Allergies Active Allergy Reactions Criticality Noted Date Comments Pollen 08/13/2017 Hay fever per patient documented as of this encounter (statuses as of 10/03/2023) Medications Medication Sig Dispensed Refills Start Date [...] as of this encounter (statuses as of 10/03/2023) Active Problems Problem Noted Date Diagnosed Date [...] - 2014 Coronary artery disease invo lving [place] coronary artery of [place] heart without angina pectoris 11/19/2016 History of basal cell carcinoma of skin 05/24/20 15 documented as of this encounter (statuses as of 10/03/2023) Resolved Problems Problem Noted Date Diagnosed Date [...] as of this encounter (statuses as of 10/03/2023) Immunizations Name Administration Dates Next Due COVID-19 mRNA, LNP-s, No Pre serve, 2-Dose Series (Moderna) 10/30/2020,09/27/2020 COVID-19, mRNA, LNP-s, PF, B ooster, 100mcg/0.5mg (Moderna) 07/04/2021 Covid-19, Mrna, Lnp-s, Pf, B ivalent, 30 Mcg, IM, 12 yrs and above (Nekted) 11/15/2022 H1N1 2009 Influenza, IM 09/04/2009 HEP [...] encounter Miscellaneous Notes * Telephone Encounter - Stiven U[place] RT - 10/03/2023 9:58 AM EST Ready for mri documented in this encounter Plan of Treatment Upcoming Encounters Date Type Department Care Team (Late st Contact Info) Description 10/08/2023 6:30 PM EST Appointment Radiology, [facility] [address] [facility] [place] [address] 10/09/2023 11:15 AM EST Office Visit Dermatology [facility] [place] [address] [facility] [place] [address] Lorenzo Hoyt MD 200 [facility] [place] [address] 10/20/2023 9:20 AM EST Anticoagulation Pharmacy, [place] 200 [facility] [place] [address] Pharmacist1, [facility] [address] [place] [address] 11/14/2023 3:30 PM EDT Office Visit Cardiology, [facility] [address] [place] [address] Gabi Nolan CRNP [address] [facility] [place] [address] 04/14/2024 10:20 AM EDT [facility] [place] [address] [place] [address] Luis Espinoza, [address] [facility] [address] [place], [place] [address] Health Maintenance Due Date Last Done Comments Depression Screening 08/11/2021 08/11/2020 COVID-19 Vaccine (2022- season) 2023 11/15/2022, 07/04/2021, 10/30/2020, Additional history exists GFR 10/01/2024 10/01/2023, 09/02, 03/20/2023, Additional history exists Albumin/Creatinine Ratio 03/20/2026 03/20/2023 DTaP,Tdap,and Td Vaccines (3 - Td or Tdap) 12/26/2030 12/26/2020, 11/16/2010 Pneumococcal Vaccine: 65+ Years Completed 05/21/2016, 10/24/2009, 08/08/2004 Zoster Vaccines Completed 09/30/2018, 0 05/2018, 12/17/2011 COLONOSCOPY-EVERY 3 YRS AGES 18-100 [...] this encounter Medical Devices Implanted Type Area Asphalt Heater Operator Device Identifier Shelf Expiration Date Model / Serial / Lot Clip Quick 2.8mm 230cm - [id number] Implanted:Qty: 1 on 08/19/2022 by Jojo Pearson MD at ENDOSCOPY [facility] Colon [employer] 12/29/2024 [id number]-202UR.A / / [id number] documented as of this encounter Advance Directives Documents on File Type Date Recorded Patient Business Development Manager Expl anation Advance Directives and Living Will 09/28/2016 LIVING WILL Care Teams Button And Buckle Maker Relationship Specialty Start Date End Date Luis Espinoza DO [address] [place] [address] PCP - General Family Medicine 02/16/17 documented as of this encounter
--- OUTSIDE RECORDS SUMMARY | 2023-10-29 11:53 | External Medical Summary | Summary of Care ---
Author Name Unknown Organization [facility] Address [address] [address] Phone [phone] Care Team Providers Care Watcher Lookout Tower Name Role Phone Luis Espinoza DO Primary Care Provider [phone] Reason for Visit * Reason Comments Follow Up Encounter Details Date Type Department Care Team (Late st Contact Info) Description 10/02/2023 10:00 AM EST Office Visit Cardiology, [facility] [address] [place] [address] Gabi Nolan CRNP [address] [place] [address] HTN, goal below 140/90* Allergies Active Allergy Reactions Criticality Noted Date Comments Pollen 08/13/2017 Hay fever per patient documented as of this encounter (statuses as of 10/02/2023) Medications Medication Sig Dispensed Refills Start Date [...] needed. 0 Active Lisinopril 40 MG Oral TabletIndications: S/P [...] 10 MG Oral Tablet (Norvasc)Indicatio ns:History of TN (myocardial infarction) Take 1 Tablet by mouth [...] before bedtime. 204 Tablet 3 10/02/2023 Active Triamterene-HCTZ 37.5-25 MG Oral Tablet ((Maxzide-25)) Take 1 Tablet by mouth in the morning. 90 Tablet 5 01/01/2023 4 Discontinue d(Medicatio n/Dose Changed) Metoprolol Tartrate 25 MG Oral Tablet (Lopressor)Indicat ions:History of TN (myocardial infarction) take 1 tablet by mouth every evening with dinner 90 Tablet 3 04/21/2023 4 Discontinue d(Medicatio n/Dose Changed) documented as of this encounter (statuses as of 10/02/2023) Active Problems Problem Noted Date Diagnosed Date Permanent atrial fibrillation 09/23/2023 Bipolar 1 disorder 02/12/2023 Inguinal hernia of left side without obstruction or gangrene 09/03/2022 Hypertension 09/03/2022 Chronic atrial fibrillation 02/28/2020 History of TN (myocardial infarction) 05/23/2017 History of nonmelanoma skin cancer 04/22/2017 Overview: 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 cheek - 2015 Hx of BCC on left cheek - 2014 Coronary artery disease invo lving koi coronary artery of koi heart without angina pectoris 11/19/2016 History of basal cell carcinoma of skin 05/24/20 15 documented as of this encounter (statuses as of 10/02/2023) Resolved Problems Problem Noted Date Diagnosed Date Resolved Date Chronic kidney disease, stage 3a 11/12/2021 08/13/2022 Overview: Per CKD protocol Prediabetes 12/09/2017 06/02/2018 Overview: Per Prediabetes protocol #1 Chronic atrial fibrillation 11/25/2017 12/01/2018 History of TN (myocardial infarction) 05/23/2017 05/23/2017 Paroxysmal atrial fibrillation 05/24/2015 10/04/2021 Bipolar disorder, in full re mission, most recent episode depressed 05/24/2015 02/12/2023 Atrial fibrillation and flutter 05/24/2015 S/P CABG (coronary artery bypass graft) 05/23/2017 TN (myocardial infarction) 0 05/23/2017 Overview: 3 in 2011 - 3 stents and an ablation done Manic episode 11/19/2016 Bipolar disorder (manic depression) 05/24/2015 documented as of this encounter (statuses as of 10/02/2023) Immunizations Name Administration Dates Next Due COVID-19 mRNA, LNP-s, No Pre serve, 2-Dose Series (Moderna) 10/30/2020,09/27/2020 COVID-19, mRNA, LNP-s, PF, B ooster, 100mcg/0.5mg (Moderna) 07/04/2021 Covid-19, Mrna, Lnp-s, Pf, B ivalent, 30 Mcg, IM, 12 yrs and above ([employer]) 11/15/2022 H1N1 2009 Influenza, IM 09/04/2009 HEP [...] Former Cigarettes 0.5 3 Smokeless Tobacco: Never Tobacco Cessation:Counseling Given: Not Answered Alcohol Use Standard Drinks/Week Comments Yes 0 [...] Sign Reading Time Taken Comments Blood Pressure 138/70 10/02/2023 9:49 AM EST Pulse 86 10/02/2023 9:49 AM EST Temperature - - Respiratory Rate - - Oxygen Saturation 97% 10/02/2023 9:49 AM EST Inhaled Oxygen Concentration - - Weight 62.1 kg (137 lb) 10/02/2023 9:49 AM EST Height - - Body Mass Index 22.97 07/10/2023 11:38 AM EST documented in this encounter Progress Notes * Gabi Nolan CRNP - 10/02/2023 9:43 AM EST Cardiology Outpatient Visit 10/02/2023 Primary Media Relations Coordinator: Dr. Martinez Past medical history: Hypertension CAD, h/o TN 1990, s/p CABG 1990 H/o TN with PCI x3 stents, 2011 Mild aortic insufficiency per echo 10/2021 Permanent Atrial fibrillation, initially diagnosed in the setting of TN (2011), s/p ablation- follows with Dr. Martinez Recurrent 04/2016, sotalol stopped [id number] score of 4 (age 2, CAD, HTN)- on Warfarin HPI 83-year-old male presenting to the cardiology office today in routine follow-up. [facility]. He also follows with Dr. Martinez due to a history of permanent atrial fibrillation. BMP was recently performed showing a progressive decline in renal function. Since March serum creatinine has been averaging between 1.7 and 2.1. Was last evaluated by [facility]ph[facility] in November 2022 due to recurrent nephrolithiasis. Renal function was stable with a creatinine of 1.17 due to elevated blood pressures hydrochlorothiazide was initiated. Repeat BMP April 2023 in the [facility] system showed a serum creatinine of 1.7. There has been no follow-up with Nephrology. Patient is currently being treated with triamterene hydrochlorothiazide, lisinopril, and amlodipinefor blood pressure control. Blood pressures appear well controlled. Today the patient presents feeling generally well he is very apprehensive regarding his upcoming MRI. While back he fell off a ladder and had a CT scan done. Incidentally there was evidence of a deonna his pancreas. There was concern for cancer and he will be having an MRI done later next week. Nochest pain, shortness of breath, palpitations, dizziness, syncope or near syncope. No orthopnea, PND, or increased lower extremity edema. No fever, chills, cough, hematochezia, melena, or hemoptysis. He states he is compliant with all medications, and offers no side effects. Current Outpatient Medications Medication Sig Dispense Refill aspirin 81 MG chewable tablet mornings latanoprost (XALATAN) 0.005 % ophthalmic solution Instill 1 Drop into both eyes at bedtime. 1 drop,left eye only, bedtime Vitamin D 50 MCG (2000 UT) Oral Capsule Take 2,000 Units by mouth daily. Potassium Citrate ER 15 MEQ (1620 MG) Oral Tablet Extended Release Take by mouth 1 Tablet daily . Triamcinolone Acetonide 0.1 % External Cream (Aristocort) Apply to affected areas on legs twice daily as needed 80 g 0 Fluorouracil 5 % External Cream (Efudex) Apply topically to affected area 2 times a day . apply to affected area. 40 g 0 Fungi-Nail 25 % External Solution (Undecylenic Acid) Apply topically to affected area . Timolol Hemihydrate 0.5 % Ophthalmic Solution (Betimol) Instill 1 Drop into the left eye in the morning. Meclizine HCl 25 MG Oral Tablet (Antivert) Take 1 Tablet by mouth 3 times a day as needed. Lisinopril 40 MG Oral Tablet Take 1 Tablet by mouth in the morning. 90 Tablet 3 carBAMazepine ER 300 MG Oral Capsule Extended Release 12 Hour (Carbatrol) take 1 tablet by mouth atbedtime 90 Capsule 3 Ketoconazole 2 % External Shampoo (Nizoral) Apply to scalp (as shampoo) and behind ears and back jarred rios, wait 5 min, then rinse 120 mL 0 amLODIPine Besylate 10 MG Oral Tablet (Norvasc) Take 1 Tablet by mouth in the morning. 90 Tablet 3 Rosuvastatin Calcium 40 MG Oral Tablet (Crestor) take 1 tablet by mouth once daily with dinner 90 Tablet 3 Warfarin Sodium 2 MG Oral Tablet (Coumadin) TAKE 1 TABLET BY MOUTH DAILY FRIDAY, FRIDAY,FRIDAY AND 2 TABLETS ALL OTHER DAYS OR DIRECTED BY [facility] CL[facility]IC 132 Tablet 3 Carvedilol 3.125 MG Oral Tablet (Coreg) Take 1 Tablet by mouth in the morning and 1 Tablet before bedtime. 204 Tablet 3 No current facility-administered medications for this visit. Past Medical History: Diagnosis Date Atrial fibrillation and flutter (HCC) Does not realize when he goes in to it BCC (basal cell carcinoma), face Moh's done Bipolar disorder (manic depression) (HCC) Glaucoma Manic episode (HCC) 2000 1 week inpatient stay [place] (myocardial infarction) ([facility]) 2011 3 in 2011 - stents and an ablation done S/P CABG (coronary artery bypass graft) 1990 Past Surgical History: Procedure Laterality Date COLONOSCOPY, DIAGNOSTIC (RECTUM) 12/30/2018 adenomatous polyps, diverticulosis, repeat 3 yrs/COLONOSCOPY FLEXIBLE PROXIMAL DIAGNOSTIC performedby Jojo Pearson MD at ENDOSCOPY [facility] COLONOSCOPY, DIAGNOSTIC (RECTUM) 08/19/2022 benign adenomatous polyps / COLONOSCOPY FLEXIBLE PROXIMAL DIAGNOSTIC performed by Jojo Pearson MD at ENDOSCOPY [facility] CORONARY ARTERIES BYPASS, THREE 1990 REMOVAL OF APPENDIX Social History Tobacco Use Smoking status: Former Packs/day: 0.50 Years: 3.00 Additional pack years: 0.00 Total pack years: 1.50 Types: Cigarettes Smokeless tobacco: Never Vaping Use Vaping Use: Never used Substance Use Topics Alcohol use: Yes Comment: rare Drug use: No Review of patient's allergies indicates: Allergen Reactions Environmental [Pollen] Hay fever per patient Review of Systems: See HPI for pertinent positives. All others negative, other than those noted in HPI. Physical Exam BP 138/70 | Pulse 86 | Wt 62.1 kg (137 lb) | SpO2 97% | BMI 22.97 kg/m | BSA 1.68 m General: No acute distress. A+Ox3. HEENT: Normocephalic. Atraumatic. Conjunctiva and sclera clear. NECK: No carotid bruits. No JVD. Carotid upstrokes are brisk. Heart: Irregular. S1 and S2 noted without murmur, rubs, gallops. PMI non displaced. Lungs: Clear to auscultation. No wheezes, rhonchi, rales. Abdomen: Normal bowel sounds. Soft. Nontender. No masses or organomegaly. No abdominal bruits. Extremities: No edema. No clubbing or cyanosis. Pulses: radial=2/4, posterior tibial=2/4, dorsalis pedis = 2/4. NEURO: No focal deficits. PSYCH: Normal. Lab data/imaging study review: Echo 11/02/2022 at [facility] Rate controlled AFib during echo LVEF 60-65% No wall motion abnormalities Left atrium mildly dilated Trace AI Impression/Plan: This is a medically complex 83 year old male who is being evaluated in the cardiology office for ongoing care/risk management for CAD, HLD, Perm AFIB, and HTN. 1. Coronary artery disease involving koi coronary artery of koi heart without angina pectoris 2. Dyslipidemia, goal LDL below 70 -CAD, h/o TN 1990, s/p CABG 1990. H/o TN with PCI x3 stents, 2011. -Stable, no angina. -LDL well controlled, 62. 1. Continue rosuvastatin 40 mg daily 2. Continue aspirin 81 mg daily 3. Permanent atrial fibrillation (HCC) -Permanent atrial fibrillation. Follows with Dr. Martinez. -Ventricular rates normally well controlled. Asymptomatic. 4. HTN, goal below 140/90 -Improved blood pressure control but renal function has declined. 1. Continue lisinopril 40 mg daily 2. Continue amlodipine 10 mg daily 3. Discontinue triamterene hydrochlorothiazide and metoprolol tartrate. Transitioned to carvedilol 3.125 mg twice daily. Repeat a BMP in 1 week. Will likely need higher dose of coreg vs addition of hydralazine. 4. We discussed having a Nephrology appointment for evaluation of CKD however patient would like tosee if these changes help first. The patient agrees to the above plan and will call with additional questions or concerns. ER with all emergencies advised. Follow Up: Return in about 6 weeks (around 11/13/2023). I spent a total of 40 minutes on the date of service in preparation, delivery, and documentation ofthe care provided to Andrade Mcfarlane excluding any time spent in the performance of separately billed services. MARICARMEN Melchor, Department of Cardiology This chart was completed in part utilizing [employer] Speech Voice Recognition Software. Grammatical errors, random word insertions, prounoun errors, and incomplete sentences are an occasional consequence of this system due to software limitations, ambient noise, and hardware issues. Any formal questions or concerns about the content, text, or information contained within the body of this dictation should be directly addressed to the provider for clarification. documented in this encounter Nursing Notes * Katie Mason CMA - 10/02/2023 9:47 AM EST Examination Room: 7 Name: Andrade Mcfarlane Date of : (1940) Reason for Visit: 6m Interim Hospitalization(s): none Problems/Concerns: denied Chest Pain/SOB: denied My [facility] is a way you can talk to your provider online through e-mail. Would you like to sign up? I can activate it for you? ALREADY ACTIVE Patient was instructed to not get up on the exam table until directed and assisted by their provider; patient is to remain seated in the chair/ wheelchair/ exam table for fall prevention and safety reasons. Patient is aware to have assistance to step down off exam table with personnel. Patient voiced full comprehension of instructions. documented in this encounter Plan of Treatment Upcoming Encounters Date Type Department Care Team (Late st Contact Info) Description 10/08/2023 6:30 PM EST Appointment Radiology, [address] [address] 10/09/2023 11:15 AM EST Office Visit Dermatology [facility] [address] [place] [address] [address] Lorenzo Hoyt MD [address] [place] [address] 10/20/2023 9:20 AM EST Anticoagulation Pharmacy, [facility] [address] [address] Pharmacist1, [facility] [address] [place] [address] [address] 11/14/2023 3:30 PM EDT Office Visit Cardiology, [facility] [address] [place] [address] Gabi Nolan CRNP [address] [place] [place] [address] 04/14/2024 10:20 AM EDT Office Visit Family Practice [facility] [address] [facility] [place] [address] Luis Espinoza DO [address] [facility] [place] [address] Scheduled Orders Name Type Priority Associated Diagnoses Orde r Schedule BASIC METABOLIC PANEL Lab Routine HTN, goal below 140/90 Expected: 10/09/2023, Expires: 10/02/2024 Health Maintenance Due Date Last Done Comments [...] this encounter Medical Devices Implanted Type Area Drapery Hemmer Automatic Device Identifier Shelf Expiration Date Model / Serial / Lot Clip Quick 2.8mm 230cm - [id number] Implanted:Qty: 1 on 08/19/2022 by Jojo Pearson MD at ENDOSCOPY [facility] [email or web address] 12/29/2024 [id number]-202UR.[id number] / / [id number] documented as of this encounter Visit Diagnoses Diagnosis HTN, goal below 140/90- Primary Unspecified essential hypertension documented in this encounter Advance Directives Documents on File Type Date Recorded Patient Floor Care Specialist Expl anation Advance Directives and Living Will 09/28/2016 LIVING WILL Care Teams Watcher Lookout Tower Relationship Specialty Start Date End Date Luis Espinoza DO [address] [place] [address] PCP - General Family Medicine 02/16/17 documented as of this encounter"
--- OUTSIDE RECORDS SUMMARY | 2023-10-29 11:53 | External Medical Summary | Summary of Care ---
Author Name Unknown Organization [facility] Address [address] [place] [address] Phone [phone] Care Team Providers Care Clinical Research Technician Name Role Phone Luis Espinoza DO Primary Care Provider [phone] Reason for Visit * Reason Onset Date Comments Test Results 10/09/2023 Encounter Details Date Type Department Care Team (Late st Contact Info) Description 10/09/2023 Telephone Laboratory, [place] [address] [place] [address] Luis Espinoza DO [address] [place] [address] Test Results Allergies Active Allergy Reactions Criticality [...] - 2014 Coronary artery disease invo lving [place] coronary artery of chinik heart without angina pectoris 11/19/2016 History of [...] 30 Mcg, IM, 12 yrs and above ([employer]) 11/15/2022 H1N1 2009 Influenza, IM 09/04/2009 HEP [...] encounter Miscellaneous Notes * Telephone Encounter - Arlene Lino OSA - 10/09/2023 12:12 PM EST Bernardo- The radiologist discovered an unexpected or indeterminate finding on Andrade Mcfarlane ([id number]) and asks that you review the following [...] Thank you, JOHNNY Darling Client Service Rep [facility] Medicine [place] documented in this encounter Plan of Treatment Upcoming Encounters Date Type Department Care Team (Late st Contact Info) Description 10/20/2023 9:20 AM EST Anticoagulation Pharmacy, [facility] [employer] [address] [address] Pharmacist1, [facility] [address] [place] [address] [address] 11/14/2023 3:30 PM EDT Office Visit Cardiology, [facility] [address] [place] [address] Gabi Nolan CRNP [address] [place] [place] [address] 04/09/2024 2:00 PM EDT Office Visit Dermatology [facility] [address] [place] [address] [address] Lorenzo Hoyt MD [address] [place] [address] [address] 04/14/2024 10:20 AM EDT Office Visit Family Practice [facility] [address] [place] [address] [address] [address] Luis Espinoza, [address] [place] [address] [address] Health Maintenance Due Date Last Done Comments Depression Screening 08/11/2021 08/11/2020 COVID-19 Vaccine (5 - 2023-24 season) 2023 11/15/2022, 07/04/2021, 10/30/2020, Additional history [...] this encounter Medical Devices Implanted Type Area Casting Supervisor Device Identifier Shelf Expiration Date Model / Serial / Lot Clip Quick 2.8mm 230cm - [id number] Implanted:Qty: 1 on 08/19/2022 by Jojo Pearson MD at [facility] Colon [employer] 12/29/2024 [id number]-202UR.A / / [id number] documented as of this encounter Advance Directives Documents on File Type Date Recorded Patient Event Marketing Representative Expl anation Advance Directives and Living Will 09/28/2016 LIVING WILL Care Teams Clinical Research Technician Relationship Specialty Start Date End Date Luis Espinoza DO [address] [place] [address] PCP - General Family Medicine 02/16/17 documented as of this encounter
--- OUTSIDE RECORDS SUMMARY | 2023-10-29 11:53 | External Medical Summary | Summary of Care ---
Author Name Unknown Organization [facility] Address [address] [facility] [place] [address] Phone [phone] Care Team Providers Care Gantry Crane Operator Name Role Phone Luis Espinoza DO Primary Care Provider [phone] Reason for Visit * Reason Comments Outpatient Testing Encounter Details Date Type Department Care Team (Late st Contact Info) Description 10/09/2023 10:50 AM EST Laboratory Laboratory [facility] [address] [place] [id number] [facility] [address] [place] [address] HTN, goal below 140/90 Allergies Active Allergy Reactions Criticality Noted Date [...] 10 MG Oral Tablet (Norvasc)Indications :History of [place] (myocardial infarction) Take 1 Tablet by mouth [...] 09/03/2022 Chronic atrial fibrillation 02/28/2020 History of [place] (myocardial infarction) 05/23/2017 History of nonmelanoma skin cancer 04/22/2017 Overview: 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 cheek - 2015 Hx of BCC on left cheek - 2014 Coronary artery disease invo lving [place] coronary artery of [place] heart without angina pectoris 11/19/2016 History of basal cell carcinoma of skin 05/24/20 15 documented as of this encounter (statuses as of 10/09/2023) Resolved Problems Problem Noted Date Diagnosed Date Resolved Date Chronic kidney disease, stage 3a 11/12/2021 08/13/2022 Overview: Per CKD protocol Prediabetes 12/09/2017 06/02/2018 Overview: Per Prediabetes protocol #1 Chronic atrial fibrillation 11/25/2017 12/01/2018 History of [place] (myocardial infarction) 05/23/2017 05/23/2017 Paroxysmal atrial fibrillation 05/24/2015 10/04/2021 Bipolar disorder, in full re mission, most recent episode depressed 05/24/2015 02/12/2023 Atrial fibrillation and flutter 05/24/2015 S/P CABG (coronary artery bypass graft) 05/23/2017 IN (myocardial infarction) 0 05/23/2017 Overview: 3 in [...] 30 Mcg, IM, 12 yrs and above ([employer]) 11/15/2022 H1N1 2009 Influenza, IM 09/04/2009 HEP [...] Description 10/20/2023 9:20 AM EST Anticoagulation Pharmacy, [facility] [place] [address] [place] [address] Pharmacist1, [facility] [address] [place] [address] 11/14/2023 3:30 PM EDT Office Visit Cardiology, [facility] [address] [place] [place] [address] Gabi Nolan CRNP [address] [place] [place] [address] 04/09/2024 2:00 PM EDT Office Visit Dermatology [facility] [address] [facility] [place] [address] Lorenzo Hoyt MD [address] [place] [address] 04/14/2024 10:20 AM EDT Office Visit Family Practice [facility] [address] [facility] [place] [address] Luis Espinoza DO [address] [facility] [place] [address] Pending Results Name Type Priority Associated Diagnoses Date /Time BASIC METABOLIC PANEL Lab Routine HTN, goal below 140/90 10/09/2023 11:45 AM EST Health Maintenance Due Date Last [...] this encounter Medical Devices Implanted Type Area Portal Developer Device Identifier Shelf Expiration Date Model / Serial / Lot Clip Quick 2.8mm 230cm - [id number] Implanted:Qty: 1 on 08/19/2022 by Jojo Pearson MD at ENDOSCOPY [facility] Colon [employer] 12/29/2024 [id number]-202UR.A / / [id number] documented as of this encounter Visit Diagnoses Diagnosis HTN, goal below 140/90 Unspecified essential hypertension documented in this encounter Advance Directives Documents on File Type Date Recorded Patient Powertrain Calibration Engineer Expl anation Advance Directives and Living Will 09/28/2016 LIVING WILL Care Teams Gantry Crane Operator Relationship Specialty Start Date End Date Luis Espinoza DO [address] [place] [address] PCP - General Family Medicine 02/16/17 documented as of this encounter
--- OUTSIDE RECORDS SUMMARY | 2023-10-29 11:53 | External Medical Summary ---
Author Name Unknown Address Unknown Organization K09:[facility] [address] [place] [address] Laboratory Report Ordering Provider Test Date Status INDY MONSON 10/09/2023 11:45:37 Final Observation Date Value Abnormality Reference (Units ) Status BUN 10/09/2023 11:45:37 34 Above high normal 6-20 (mg/dL) Final Creatinine 10/09/2023 11:45:37 1.7 Above high normal 0.6-1.2 (mg/dL) Final Glomerular filtration rate/1.73 sq M.predicted [Volume Rate/Area] in Serum, Plasma or Blood by Creatinine-based formula (CKD-EPI) 10/09/2023 11:45:37 40 Below low normal >=60 (mL/min) Final eGFR is calculated based on the CKD-EPI 2020 equation SODIUM 10/09/2023 11:45:37 141 135-146 (m mol/L) Final Potassium 10/09/2023 11:45:37 5.1 3.5-5.1 (m mol/L) Final Cl 10/09/2023 11:45:37 103 98-107 (mm ol/L) Final CO2 10/09/2023 11:45:37 29 22-32 (mmo l/L) Final Anion gap 10/09/2023 11:45:37 9 7-15 (mmol /L) Final Glucose 10/09/2023 11:45:37 102 70-120 (mg /dL) Final Calcium 10/09/2023 11:45:37 9.5 8.4-10.2 ( mg/dL) Final Performing Location [facility] [address] [place] [address]
--- OUTSIDE RECORDS SUMMARY | 2023-10-29 11:53 | External Medical Summary | Summary of Care ---
Author Name Unknown Organization [facility] Address [address] [place] [address] Phone [phone] Care Team Providers Care Tactical Air Control Party Name Role Phone Bubba Maier DO Primary Care Provider [phone] Reason for Visit * Reason Onset Date Comments Test Results 10/09/2023 Encounter Details Date Type Department Care Team (Late st Contact Info) Description 10/09/2023 Telephone Laboratory, [place] [address] [place] [address] Bubba Maier DO [address] [place] [address] Test Results Allergies Active Allergy Reactions Criticality [...] 10 MG Oral Tablet (Norvasc)Indications :History of [place] (myocardial infarction) Take 1 Tablet by mouth [...] 09/03/2022 Chronic atrial fibrillation 02/28/2020 History of [place] (myocardial infarction) 05/23/2017 History of nonmelanoma skin cancer 04/22/2017 Overview: 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 cheek - 2015 Hx of BCC on left cheek - 2014 Coronary artery disease invo lving [place] coronary artery of [place] heart without angina pectoris 11/19/2016 History of basal cell carcinoma of skin 05/24/20 15 documented as of this encounter (statuses as of 10/09/2023) Resolved Problems Problem Noted Date Diagnosed Date Resolved Date Chronic kidney disease, stage 3a 11/12/2021 08/13/2022 Overview: Per CKD protocol Prediabetes 12/09/2017 06/02/2018 Overview: Per Prediabetes protocol #1 Chronic atrial fibrillation 11/25/2017 12/01/2018 History of [place] (myocardial infarction) 05/23/2017 05/23/2017 Paroxysmal atrial fibrillation 05/24/2015 10/04/2021 Bipolar disorder, in full re mission, most recent episode depressed 05/24/2015 02/12/2023 Atrial fibrillation and flutter 05/24/2015 S/P CABG (coronary artery bypass graft) 05/23/2017 [place] (myocardial infarction) 0 05/23/2017 Overview: 3 in [...] 30 Mcg, IM, 12 yrs and above ([facility]) 11/15/2022 H1N1 2009 Influenza, IM 09/04/2009 HEP [...] encounter Miscellaneous Notes * Addendum Note - Bubba Maier DO [...] unexpected or indeterminate finding on Andrade Mcfarlane ([id number]) and asks that you review the following [...] reviewed. Thank you, JOHNNY Darling Client Service [facility] documented in this encounter Plan of Treatment Upcoming Encounters Date Type Department Care Team (Late st Contact Info) Description 10/20/2023 9:20 AM EST Anticoagulation Pharmacy, [facility] [address] [place] [address] Pharmacist1, [facility] [address] [place] [address] 11/14/2023 3:30 PM EDT Office Visit Cardiology, [facility] [address] [place] [address] Gabi Nolan CRNP [address] [place] [address] 04/09/2024 2:00 PM EDT Office Visit Dermatology [facility] [place] [address] [facility] [place], [place] [address] Lorenzo Hoyt MD [address] [facility] [place] [address] 04/14/2024 10:20 AM EDT Office Visit Family Practice [facility] [place] [address] [place] [address] Bubba Maier DO [address] [facility] [place] [address] Scheduled Orders Name Type Priority Associated Diagnoses [...] this encounter Medical Devices Implanted Type Area Ice Handler Device Identifier Shelf Expiration Date Model / Serial / Lot Clip Quick 2.8mm 230cm - [id number] Implanted:Qty: 1 on 08/19/2022 by Jojo Pearson MD at ENDOSCOPY [facility] [employer] 12/29/2024 HX-202UR.A / / [id number] documented as of this encounter Visit Diagnoses Diagnosis XIOMY (acute kidney injury) (HCC)- Primary Acute kidney failure, unspecified Pancreatic mass Unspecified disease of pancreas documented in this encounter Advance Directives Documents on File Type Date Recorded Patient Tester Operator Expl anation Advance Directives and Living Will 09/28/2016 LIVING WILL Care Teams Tactical Air Control Party Relationship Specialty Start Date End Date Bubba Maier DO [address] [place] [address] PCP - General Family Medicine 02/16/17 documented as of this encounter
--- OUTSIDE RECORDS SUMMARY | 2023-10-29 11:53 | External Medical Summary | Summary of Care ---
Author Name Unknown Organization [facility] Address [address] [place] [address] Phone [phone] Care Team Providers Care Sales Agent Financial Report Service Name Role Phone Luis Espinoza DO Primary Care Provider [phone] Encounter Details Date Type Department Care Team (Late st Contact Info) Description 10/03/2023 Telephone Family Practice 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 cheek - 2015 Hx of BCC on left cheek - 2014 Coronary artery disease invo lving [place] coronary artery of [place] heart without angina pectoris 11/19/2016 History of basal cell carcinoma of skin 05/24/20 15 documented as of this encounter (statuses as of 10/03/2023) Resolved Problems Problem Noted Date Diagnosed Date Resolved Date Chronic kidney disease, stage 3a 11/12/2021 08/13/2022 Overview: Per CKD protocol Prediabetes 12/09/2017 06/02/2018 Overview: Per Prediabetes protocol #1 Chronic atrial fibrillation 11/25/2017 12/01/2018 History of [place] (myocardial infarction) 05/23/2017 05/23/2017 Paroxysmal atrial fibrillation 05/24/2015 10/04/2021 Bipolar disorder, in full re mission, most recent episode depressed 05/24/2015 02/12/2023 Atrial fibrillation and flutter 05/24/2015 S/P CABG (coronary artery bypass graft) 05/23/2017 [place] (myocardial infarction) 0 05/23/2017 Overview: 3 in [...] 30 Mcg, IM, 12 yrs and above ([employer]) 11/15/2022 H1N1 2009 Influenza, IM 09/04/2009 HEP [...] encounter Miscellaneous Notes * Telephone Encounter - Luis Espinoza DO - 10/03/2023 12:56 PM EST MyG also sent * Telephone Encounter - Luis Espinoza DO - 10/03/2023 12:52 PM EST Andrade's lipase took a big jump. His CT scan did not show pancreatitis specifilly but did show cholelithiasis that could cause it. Considering the jump I gave him a call to see if he is in pain. I unfortunately had to leave a message. If he is in pain he should go to the ER right away for treatment. Otherwise he has an MRI scheduled to follow-up on this. documented in this encounter Plan of Treatment Upcoming Encounters Date Type Department Care Team (Late st Contact Info) Description 10/08/2023 6:30 PM EST Appointment Radiology, [facility] [address] [facility] [place] [address] 10/09/2023 11:15 AM EST Office Visit Dermatology [facility] [place] [address] [place] [address] [address] Lorenzo Hoyt MD [address] [address] 10/20/2023 9:20 AM EST Anticoagulation Pharmacy, [facility] [place] [address] [address] Pharmacist1, [facility] [address] [place] [address] 11/14/2023 3:30 PM EDT Office Visit Cardiology, [facility] [address] [address] Gabi Nolan CRNP [address] [place] [address] 04/14/2024 10:20 AM EDT Office Visit Family Practice [facility] [place] [address] [place] [address] [address] Luis Espinoza DO [address] [place] [address] [address] Health Maintenance Due Date Last Done Comments Depression Screening 08/11/2021 08/11/2020 COVID-19 Vaccine (5 - 2022-24 season) 2023 11/15/2022, 07/04/2021, 10/30/2020, Additional history [...] this encounter Medical Devices Implanted Type Area Environmental Projects Advisor Device Identifier Shelf Expiration Date Model / Serial / Lot Clip Quick 2.8mm 230cm - [id number] Implanted:Qty: 1 on 08/19/2022 by Jojo Pearson MD at ENDOSCOPY [facility] [employer] 12/29/2024 HX-202UR.A / / [id number] documented as of this encounter Advance Directives Documents on File Type Date Recorded Patient Manager Collection Expl anation Advance Directives and Living Will 09/28/2016 LIVING WILL Care Teams Sales Agent Financial Report Service Relationship Specialty Start Date End Date Luis Espinoza DO [address] [place] [address] PCP - General Family Medicine 02/16/17 documented as of this encounter
--- OUTSIDE RECORDS SUMMARY | 2023-10-29 11:53 | External Medical Summary | Summary of Care ---
Author Name Unknown Organization [facility] Address [address] [place] [facility] [place] [address] Phone [phone] Care Team Providers Care Glass Edger Name Role Phone AlexisBubba Shaye AMADO Primary Care Provider [phone] Reason for Visit * Reason Comments Follow Up Patient here for a s kin check with hx of NMSC. He is mostly concerned about his scalp, has several spots there. Encounter Details Date Type Department Care Team (Late st Contact Info) Description 10/09/2023 11:15 AM EST Office Visit Dermatology [facility] [place] [address] [facility] [place] [address] Lorenzo Hoyt MD [address] [facility] [place] [address] Actinic skin damage*; Seborrheic keratoses; Hx of basal cell carcinoma; Scar Allergies Active Allergy Reactions Criticality Noted Date [...] - 2014 Coronary artery disease invo lving [place] coronary artery of [place] heart without angina pectoris 11/19/2016 History of [...] on file documented as of this encounter Progress Notes * Lorenzo Hoyt MD - 10/09/2023 11:25 AM EST SUBJECTIVE: Chief Complaint: Chief Complaint Patient presents with Follow Up Patient here for a skin check with hx of NMSC. He is mostly concerned about his scalp, has several spots there. HPI: Andrade Mcfarlane is a 83 year old male seen for a full skin check for history of nonmelanoma skin cancer. Concerned about itchy dry flaky spot on scalp. DERMATOLOGIC HISTORY: History of multiple NMSCs OBJECTIVE: GEN: Alert, no distress, appears oriented, and cooperative SKIN: Detailed exam of hair, face, trunk, arms, and legs Right vertex scalp and scattered on extremities - several scattered breen/brown hyperkeratotic stuck on appearing waxy papules Well-healed scar(s) at primary site(s) without evidence of recurrence Scattered on face, chest, back - diffuse mottled hypopigmented and hyperpigmented macules without significant irregularity. Associated telangiectasias ASSESSMENT/PLAN: Seborrheic keratoses - The benign nature of these lesions was discussed with the patient and that no treatment is indicated today. Scar(s), History of Nonmelanoma Skin Cancer - Well healed scar(s) with no evidence of recurrence - Recommended periodic skin exams and instructed to call clinic if patient notices any changing lesions, including rapid enlargement, changes in color or shape or symptoms, bleeding, or other concerns. The common features and behavior of non-melanoma skin cancers (e.g. basal cell carcinoma/squamouscell carcinoma) as well as the features of melanoma were also reviewed. -Daily sun protection recommended including physical (i.e. clothing) and chemical blockers. Broad spectrum sunscreens with at least SPF 30 for UVA and UVA protection were recommended. Chronic Actinic Damage - Discussed that skin changes are due to chronic sun exposure. - Daily sun protection recommended as discussed above Lorenzo Hoyt MD Ref: SELF[[id number]] NO STREET ADDRESS AVAILABLE None (office) None (fax) PCP: BUBBA ESPINOZA [address] [address] [phone] documented in this encounter Nursing Notes * Mar Valera LPN - 10/09/2023 10:59 AM EST Patient identified by name and date of . Do you have any concerns about pain management for today's visit? No Living Will or Advance Directive for Health Care as noted on problem list. [facility] is a way you can talk to your provider online through e-mail. Would you like to sign up? I can activate it for you? ALREADY ACTIVE Chief Complaint Patient presents with Follow Up Patient here for a skin check with hx of NMSC. He is mostly concerned about his scalp, has several spots there. documented in this encounter Plan of Treatment Upcoming Encounters Date Type Department Care Team (Late st Contact Info) Description 10/20/2023 9:20 AM EST Anticoagulation Pharmacy, [facility] [address] [address] Pharmacist1, [facility] [address] [facility] [place] [address] 11/14/2023 3:30 PM EDT Office Visit Cardiology, [facility] [address] [place] [address] Gabi Nolan CRNP [address] [place] [address] 04/09/2024 2:00 PM EDT Office Visit [facility]ermatology [facility] [place] [address] Lorenzo Hoyt MD [address] [facility] [place] [address] 04/14/2024 10:20 AM EDT Office Visit Family Practice [facility] [address] [facility] [place] [address] Bubba Espinoza DO [address] [facility] [place] [address] Health Maintenance Due Date Last Done Comments [...] this encounter Medical Devices Implanted Type Area Claims Correspondence Clerk Device Identifier Shelf Expiration Date Model / Serial / Lot Clip Quick 2.8mm 230cm - [id number] Implanted:Qty: 1 on 08/19/2022 by Jojo Pearson MD at ENDOSCOPY [facility] Colon [employer] 12/29/2024 HX-202UR.A / / [id number] documented as of this encounter Visit Diagnoses Diagnosis Actinic skin damage- Primary Other dermatitis due to solar radiation Seborrheic keratoses Hx of basal cell carcinoma Personal history of other malignant neoplasm of skin Scar Scar condition and fibrosis of skin documented in this encounter Advance Directives Documents on File Type Date Recorded Patient Gluer Machine Operator Expl anation Advance Directives and Living Will 09/28/2016 LIVING WILL Care Teams Glass Edger Relationship Specialty Start Date End Date Bubba Espinoza DO [address] [facility] [place] [address] PCP - General Family Medicine 02/16/17 documented as of this encounter
--- OUTSIDE RECORDS SUMMARY | 2023-10-29 11:53 | External Medical Summary | Summary of Care ---
Author Name Unknown Organization [facility] Address [address] [place] [address] Phone [phone] Care Team Providers Care Aerial Gunner Superintendent Name Role Phone Luis Espinoza DO Primary Care Provider [phone] Reason for Visit * Reason Onset Date Comments Test Results 10/09/2023 Encounter Details Date Type Department Care Team (Late st Contact Info) Description 10/09/2023 Telephone Laboratory, [place] [address] [place] [address] Luis Espinoza DO [address] [place] [address] Test Results Allergies Active Allergy Reactions Criticality [...] - 2014 Coronary artery disease invo lving [place] coronary artery of [place] heart without angina pectoris 11/19/2016 History of [...] 30 Mcg, IM, 12 yrs and above ([place]) 11/15/2022 H1N1 2009 Influenza, IM 09/04/2009 HEP [...] unexpected or indeterminate finding on Andrade Mcfarlane ([id number]) and asks that you review the following [...] Thank you, JOHNNY Darling Client Service Rep [facility] [place] documented in this encounter Plan of Treatment Upcoming Encounters Date Type Department Care Team (Late st Contact Info) Description 10/20/2023 9:20 AM EST Anticoagulation Pharmacy, [employer] [address] [address] Pharmacist1, [facility] [address] [place] [address] 11/14/2023 3:30 PM EDT Office Visit Cardiology, [facility] [address] [place] [address] Gabi Nolan CRNP [address] [place] [address] 04/09/2024 2:00 PM EDT Office Visit Dermatology [facility] [address] [place] [address] Lorenzo Hoyt MD [address] [address] 04/14/2024 10:20 AM EDT Office Visit Family Practice [facility] [address] [address] Luis Espinoza, [address] [place] [address] Health Maintenance Due Date Last Done Comments [...] this encounter Medical Devices Implanted Type Area [id number] Android Developer Device Identifier Shelf Expiration Date Model / Serial / Lot Clip Quick 2.8mm 230cm - [id number] Implanted:Qty: 1 on 08/19/2022 by Jojo Pearson MD at ENDOSCOPY [facility] Colon [employer] 12/29/2024 HX-202UR.A / / [id number] documented as of this encounter Advance Directives Documents on File Type Date Recorded Patient Archives Technician Expl anation Advance Directives and Living Will 09/28/2016 LIVING WILL Care Teams Aerial Gunner Superintendent Relationship Specialty Start Date End Date Luis Espinoza DO [address] [place] [address] PCP - General Family Medicine 02/16/17 documented as of this encounter
--- OUTSIDE RECORDS SUMMARY | 2023-10-29 11:53 | External Medical Summary | Summary of Care ---
Author Name Unknown Organization [facility] Address [address] [place] [address] Phone [phone] Care Team Providers Care Contact Acid Plant Operator Helper Name Role Phone Luis Espinoza DO Primary Care Provider [phone] Encounter Details Date Type Department Care Team (Late st Contact Info) Description 10/03/2023 Telephone Family Practice [facility] [address] [place] [id number] Luis Espinoza DO [address] [facility] [place] [address] Allergies Active Allergy Reactions Criticality Noted Date Comments Pollen 08/13/2017 Hay fever per patient documented as of this encounter (statuses as of 10/06/2023) Medications Medication Sig Dispensed Refills Start Date [...] 10 MG Oral Tablet (Norvasc)Indications :History of [place] (myocardial infarction) Take 1 Tablet by mouth [...] as of this encounter (statuses as of 10/06/2023) Active Problems Problem Noted Date Diagnosed Date Permanent atrial fibrillation 09/23/2023 Bipolar 1 disorder 02/12/2023 Inguinal hernia of left side without obstruction or gangrene 09/03/2022 Hypertension 09/03/2022 Chronic atrial fibrillation 02/28/2020 History of [place] (myocardial infarction) 05/23/2017 History of nonmelanoma skin cancer 04/22/2017 Overview: 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 cheek - 2015 Hx of BCC on left cheek - 2014 Coronary artery disease invo lving [place] coronary artery of [place] heart without angina pectoris 11/19/2016 History of basal cell carcinoma of skin 05/24/20 15 documented as of this encounter (statuses as of 10/06/2023) Resolved Problems Problem Noted Date Diagnosed Date Resolved Date Chronic kidney disease, stage 3a 11/12/2021 08/13/2022 Overview: Per CKD protocol Prediabetes 12/09/2017 06/02/2018 Overview: Per Prediabetes protocol #1 Chronic atrial fibrillation 11/25/2017 12/01/2018 History of [place] (myocardial infarction) 05/23/2017 05/23/2017 Paroxysmal atrial fibrillation 05/24/2015 10/04/2021 Bipolar disorder, in full re mission, most recent episode depressed 05/24/2015 02/12/2023 Atrial fibrillation and flutter 05/24/2015 S/P CABG (coronary artery bypass graft) 05/23/2017 [place] (myocardial infarction) 0 05/23/2017 Overview: 3 in 2011 - 3 stents and an ablation done Manic episode 11/19/2016 Bipolar disorder (manic depression) 05/24/2015 documented as of this encounter (statuses as of 10/06/2023) Immunizations Name Administration Dates Next Due COVID-19 mRNA, LNP-s, No Pre serve, 2-Dose Series (Moderna) 10/30/2020,09/27/2020 COVID-19, mRNA, LNP-s, PF, B ooster, 100mcg/0.5mg (Moderna) 07/04/2021 Covid-19, Mrna, Lnp-s, Pf, B ivalent, 30 Mcg, IM, 12 yrs and above ([employer]ch) 11/15/2022 H1N1 2009 Influenza, IM 09/04/2009 HEP [...] Description 10/08/2023 6:30 PM EST Appointment Radiology, [facility] [address] [facility] [place] [address] 10/09/2023 11:15 AM EST Office Visit Dermatology [facility] [place] [address] [address] Lorenzo Hoyt MD [address] [address] 10/20/2023 9:20 AM EST Anticoagulation Pharmacy, [facility] [place] [address] [address] Pharmacist1, [facility] [address] [place] [address] 11/14/2023 3:30 PM EDT Office Visit Cardiology, [facility] [address] [address] Gabi Nolan CRNP [address] [place] [address] 04/14/2024 10:20 AM EDT Office Visit Family Practice [facility] [place] [address] [address] Luis Espinoza DO [address] [place] [address] [address] [address] Health Maintenance Due Date Last Done Comments [...] this encounter Medical Devices Implanted Type Area Reporting Consultant Device Identifier Shelf Expiration Date Model / Serial / Lot Clip Quick 2.8mm 230cm - [id number] Implanted:Qty: 1 on 08/19/2022 by Jojo Pearson MD at ENDOSCOPY [facility] [employer] 12/29/2024 HX-202UR.A / / [id number] documented as of this encounter Advance Directives Documents on File Type Date Recorded Patient Business And Marketing Teacher Expl anation Advance Directives and Living Will 09/28/2016 LIVING WILL Care Teams Contact Acid Plant Operator Helper Relationship Specialty Start Date End Date Luis Espinoza DO [address] [place] [address] PCP - General Family Medicine 02/16/17 documented as of this encounter
--- OUTSIDE RECORDS SUMMARY | 2023-10-29 11:54 | External Medical Summary | Summary of Care ---
Author Name Unknown Organization [facility] Address [address] [facility] [address] Phone [phone] Care Team Providers Care Road Tester Name Role Phone Luis Espinoza DO Primary Care Provider [phone] Encounter Details Date Type Department Care Team (Late st Contact Info) Description 10/01/2023 Telephone Cardiology, [facility] [address] [facility] [place] [address] AnGabi goodman CRNP [address] [place] [address] Allergies Active Allergy Reactions Criticality Noted Date [...] at bedtime 90 Capsule 3 12/18/2022 Active Triamterene-HCTZ 37.5-25 MG Oral Tablet ((Maxzide-25)) Take 1 Tablet by mouth in the morning. 90 Tablet 5 01/01/2023 Active Ketoconazole 2 % External Shampoo (Nizoral) Apply to scalp (as shampoo) and behind ears and back of neck, lather, wait 5 min, then rinse 120 mL 0 03/19/2023 Active amLODIPine Besylate 10 MG Oral Tablet (Norvasc)Indications :History of MN (myocardial infarction) Take 1 Tablet by mouth in the morning. 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 cheek - 2015 Hx of BCC on left cheek - 2014 Coronary artery disease invo lving [place] coronary artery of [place] heart without angina pectoris 11/19/2016 History of basal cell carcinoma of skin 05/24/20 15 documented as of this encounter (statuses as of 10/02/2023) Resolved Problems Problem Noted Date Diagnosed Date Resolved Date Chronic kidney disease, stage 3a 11/12/2021 08/13/2022 Overview: Per CKD protocol Prediabetes 12/09/2017 06/02/2018 Overview: Per Prediabetes protocol #1 Chronic atrial fibrillation 11/25/2017 12/01/2018 History of MN (myocardial infarction) 05/23/2017 05/23/2017 Paroxysmal atrial fibrillation 05/24/2015 10/04/2021 Bipolar disorder, in full re mission, most recent episode depressed 05/24/2015 02/12/2023 Atrial fibrillation and flutter 05/24/2015 S/P CABG (coronary artery bypass graft) 05/23/2017 MN (myocardial infarction) 0 05/23/2017 Overview: 3 in [...] encounter Miscellaneous Notes * Telephone Encounter - Radha Mendiola OSA - 10/02/2023 8:44 AM EST Called Pt to offer 10 am today. No answer, left message for return call. * Telephone Encounter - Donna Stephens LPN - 10/01/2023 3:32 PM EST ----- Message from MARICARMEN Henriquez sent at 10/01/2023 3:23 PM EST ----- Worsening renal function- patient has not been seen by cards since 10/2022-- recommend appt. May need med changes given progressive renal dysfunction. documented in this encounter Plan of Treatment Upcoming Encounters Date Type Department Care Team (Late st Contact Info) Description 10/08/2023 6:30 PM EST Appointment Radiology, [address] [address] 10/09/2023 11:15 AM EST Office Visit Dermatology [facility] [address] [place] [address] [address] Lorenzo Hoyt MD [address] [place] [address] [address] 10/20/2023 9:20 AM EST Anticoagulation Pharmacy, [facility] [place] [address] [address] [address] Pharmacist1, [facility] [address] [place] [address] 04/14/2024 10:20 AM EDT Office Visit Family Practice [facility] [place] [address], [place] [address] Luis Espinoza, [address], [place] [address] Health Maintenance Due Date Last Done Comments [...] this encounter Medical Devices Implanted Type Area Section Leader Screen Printing Device Identifier Shelf Expiration Date Model / Serial / Lot Clip Quick 2.8mm 230cm - [id number] Implanted:Qty: 1 on 08/19/2022 by Jojo Pearson MD at ENDOSCOPY [facility] [employer] 12/29/2024 [id number]-[id number] / [id number] documented as of this encounter Advance Directives Documents on File Type Date 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
--- OUTSIDE RECORDS SUMMARY | 2023-10-29 11:54 | External Medical Summary | Summary of Care ---
Author Name Unknown Organization [facility] Address [address] [facility] [place] [address] Phone [phone] Care Team Providers Care Anesthesiologists' Assistant Name Role Phone Luis Espinoza DO Primary Care Provider [phone] Reason for Visit * Reason Onset Date Comments Test Results 09/23/2023 Unexpected or In determinate Result Encounter Details Date Type Department Care Team (Late st Contact Info) Description 09/23/2023 Telephone Family Practice [facility] [place] [address] [facility] [place] [address] Luis Espinoza DO [address] [facility] [place] [address] Test Results (Unexpected or Indeterminate ... Allergies Active Allergy Reactions Criticality Noted Date Comments Pollen 08/13/2017 Hay fever per patient documented as of this encounter (statuses as of 09/24/2023) Medications Medication Sig Dispensed Refills Start Date [...] needed. 0 Active Lisinopril 40 MG Oral TabletIndications:S /P CABG (coronary artery bypass graft),ST elevation myocardial [...] 10 MG Oral Tablet (Norvasc)Indication s:History of [place] (myocardial infarction) Take 1 Tablet by mouth in the morning. 90 Tablet 3 03/21/2023 Active Metoprolol Tartrate 25 MG Oral Tablet (Lopressor)Indicati ons:History of WA (myocardial infarction) take 1 tablet by mouth every evening with dinner 90 Tablet 3 04/21/2023 Active Rosuvastatin Calcium 40 MG Oral Tablet (Crestor)Indication [...] [facility] 132 Tablet 3 08/11/2023 Active Sildenafil Citrate 50 MG Oral Tablet (Viagra)Indications :Erectile dysfunction, unspecified erectile dysfunction type Take 1 Tablet by mouth once for 1 dose. 1-4 hours before intercourse, no more than 1 dose in 24 hours. 10 Tablet 5 09/23/2023 09/23/2023 Hospital, Clinic, or Other Facility Administered Medication Ordered Dose Route Frequency Start Date End Date Status sodium chloride 0.9 % flush/inj 10 mL 10 mL IV PUSH ONCE 09/23/2023 09/24/2023 Ended documented as of this encounter (statuses as of 09/24/2023) Active Problems Problem Noted Date Diagnosed Date Permanent atrial fibrillation 09/23/2023 Bipolar 1 disorder 02/12/2023 Inguinal hernia of left side without obstruction or gangrene 09/03/2022 Hypertension 09/03/2022 Chronic atrial fibrillation 02/28/2020 History of [place] (myocardial infarction) 05/23/2017 History of nonmelanoma skin cancer 04/22/2017 Overview: 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 cheek - 2015 Hx of BCC on left cheek - 2014 Coronary artery disease invo lving [place] coronary artery of [place] heart without angina pectoris 11/19/2016 History of basal cell carcinoma of skin 05/24/20 15 documented as of this encounter (statuses as of 09/24/2023) Resolved Problems Problem Noted Date Diagnosed Date Resolved Date Chronic kidney disease, stage 3a 11/12/2021 08/13/2022 Overview: Per CKD protocol Prediabetes 12/09/2017 06/02/2018 Overview: Per Prediabetes protocol #1 Chronic atrial fibrillation 11/25/2017 12/01/2018 History of [place] (myocardial infarction) 05/23/2017 05/23/2017 Paroxysmal atrial fibrillation 05/24/2015 10/04/2021 Bipolar disorder, in full re mission, most recent episode depressed 05/24/2015 02/12/2023 Atrial fibrillation and flutter 05/24/2015 S/P CABG (coronary artery bypass graft) 05/23/2017 [place] (myocardial infarction) 0 05/23/2017 Overview: 3 in 2012 - 3 stents and an ablation done Manic episode 11/19/2016 Bipolar disorder (manic depression) 05/24/2015 documented as of this encounter (statuses as of 09/24/2023) Immunizations Name Administration Dates Next Due COVID-19 [...] Telephone Encounter - Luis Espinoza DO - 09/24/2023 4:39 PM EST Will take care of. And document in MyG. * Telephone Encounter - Kenia Montoya TECH - 09/23/2023 8:51 PM EST Hello- The radiologist discovered an unexpected or indeterminate finding on Andrade Mcfarlane ([id number]) and asks that you review the following report. Study Type:CT ABD/PELVIS W IV CONTRAST - WO ORAL CONTRAST Date of Study: 09/23/2023 IMPRESSION IMPRESSION 1. Lobulated hyperdense tissue in the caudal aspect of the pancreatic head. Further evaluation withMRI abdomen with and without contrast and MRCP is recommended. 2. Cholelithiasis. 3. Indeterminate right renal lesion for which attention on follow-up imaging is recommended. Please respond to this encounter to acknowledge receipt of this message and take responsibility to ensure this report is reviewed. Thank you, KD Lee Client Service Rep Diagnostic [facility] [place] documented in this encounter Plan of Treatment Upcoming Encounters Date Type Department Care Team (Late st Contact Info) Description 10/09/2023 11:15 AM EST Office Visit Dermatology [employer] [address] [place] [address] Lorenzo Hoyt MD [address] [address] 10/20/2023 9:20 AM EST Anticoagulation Pharmacy, [facility] [place] [address] [address] [address] Pharmacist1, [facility] [address] [facility] [place] [address] 04/14/2024 10:20 AM EDT Office Visit Family Practice [facility] [address] [facility] [place] [address] Luis Espinoza DO [address] [facility] [place] [address] Health Maintenance Due Date Last Done Comments Depression Screening 08/11/2021 08/11/2020 COVID-19 Vaccine (2022- season) 2023 11/15/2022, 07/04/2021, 10/30/2020, Additional history exists GFR 03/20/2024 03/20/2023, 01/31, 10/16/2021, Additional history exists Albumin/Creatinine Ratio 03/20/2026 03/20/2023 [...] this encounter Medical Devices Implanted Type Area Netting Inspector Device Identifier Shelf Expiration Date Model / Serial / Lot Clip Quick 2.8mm 230cm - [id number] Implanted:Qty: 1 on 08/19/2022 by Jojo Pearson MD at ENDOSCOPY [facility] [employer] 12/29/2024 [id number] / [id number] documented as of this encounter Advance Directives Documents on File Type Date 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
--- OUTSIDE RECORDS SUMMARY | 2023-10-29 11:54 | External Medical Summary ---
Author Name Unknown Address Unknown Organization [id number]:LABORATORY [facility] [place] - [address] [place] [address] Laboratory Report Ordering Provider Test Date Status DARRION MAC 09/25/2023 08:48:45 Final Observation Date Value Abnormality Reference (Units ) Status Lipase 09/25/2023 08:48:45 172 Above high normal 13 -60 (U/L) Final Performing Location LABORATORY [facility] - [address] [place] [address]
--- OUTSIDE RECORDS SUMMARY | 2023-10-29 11:54 | External Medical Summary ---
Author Name Unknown Address Unknown Organization K09:[facility]AT[facility] - [address] [place] [address] Laboratory Report Ordering Provider Test Date Status DARRION MAC 10/01/2023 08:13:24 Final Observation Date Value Abnormality Reference (Units ) Status BUN 10/01/2023 08:13:24 46 Above high normal 6-20 (mg/dL) Final Creatinine 10/01/2023 08:13:24 2.0 Above high normal 0.6-1.2 (mg/dL) Final Glomerular filtration rate/1.73 sq M.predicted [Volume Rate/Area] in Serum, Plasma or Blood by Creatinine-based formula (CKD-EPI) 10/01/2023 08:13:24 32 Below low normal >=60 (mL/min) Final eGFR is calculated based on the CKD-EPI 2020 equation SODIUM 10/01/2023 08:13:24 142 135-146 (m mol/L) Final Potassium 10/01/2023 08:13:24 4.9 3.5-5.1 (m mol/L) Final Cl 10/01/2023 08:13:24 104 98-107 (mm ol/L) Final CO2 10/01/2023 08:13:24 25 22-32 (mmo l/L) Final Anion gap 10/01/2023 08:13:24 13 7-15 (mmol /L) Final Glucose 10/01/2023 08:13:24 103 70-120 (mg /dL) Final Albumin 10/01/2023 08:13:24 4.5 3.8-5.0 (g /dL) Final AST (Aspartate aminotransferase) 10/01/2023 08:13:24 27 10-50 (U/L) Final Alk Phos 10/01/2023 08:13:24 112 35-130 (U/ L) Final Bilirubin, Total 10/01/2023 08:13:24 0.3 <=1 .2 (mg/dL) Final Calcium 10/01/2023 08:13:24 9.8 8.4-10.2 ( mg/dL) Final Protein 10/01/2023 08:13:24 7.1 6.0-8.3 (g /dL) Final ALT (Alanine aminotransferase) 10/01/2023 08:13:24 21 10-50 (U/L) Final Performing Location [facility] [address] [place] [address]
--- OUTSIDE RECORDS SUMMARY | 2023-10-29 11:54 | External Medical Summary | Summary of Care ---
Author Name Unknown Organization [facility] Address [address] [place] [address] Phone [phone] Care Team Providers Care Budget Accountant Name Role Phone Luis Espinoza DO Primary Care Provider [phone] Reason for Referral * Precert (Within 24 hrs (call dept; emergent)) - Authorized Specialty Diagnoses / Procedures Referred By Contac t Referred To Contact Radiology Diagnoses Fall, initial encounter Abdominal guarding Abdominal pain, generalized Hx of senior living use of blood thinners Procedures CT ABD/PELVIS W IV CONTRAST - WO ORAL CONTRAST CT ABD/PELVIS WO IV/ORAL CONTRAST Luis Espinoza DO [address] [facility] [place] [address] Referral ID Status Reason Start Date Expiration Date V isits Requested Visits Authorized [id number] Authorized 09/24/2023 999 999 Reason for Visit * Reason Comments Follow Up Encounter Details Date Type Department Care Team (Late st Contact Info) Description 09/23/2023 3:20 PM EST Office Visit Family Practice [facility] [place] [address] [place] [address] [address] Luis Espinoza DO [address] [facility] [place] [address] Coronary artery disease involving karuk coronary artery of karuk heart without angina pectoris*; Permanent atrial fibrillation (HCC); Chronic atrial fibrillation (HCC); Erectile dysfunction, unspecified erectile dysfunction type; Fall, initial encounter; Abdominal guarding; Abdominal pain, generalized; Hx of senior living use of blood thinners Allergies Active Allergy Reactions Criticality Noted Date Comments Pollen 08/13/2017 Hay fever per patient documented as of this encounter (statuses as of 09/23/2023) Medications Medication Sig Dispensed Refills Start Date [...] 10 MG Oral Tablet (Norvasc)Indicatio ns:History of MO (myocardial infarction) Take 1 Tablet by mouth in the morning. 90 Tablet 3 03/21/2023 Active Metoprolol Tartrate 25 MG Oral Tablet (Lopressor)Indicat ions:History of MO (myocardial infarction) take 1 tablet by mouth [...] Active Sildenafil Citrate 50 MG Oral Tablet (Viagra)Indication s:Erectile dysfunction, unspecified erectile dysfunction type Take 1 Tablet by mouth once for 1 dose. 1-4 hours before intercourse, no more than 1 dose in 24 hours. 10 Tablet 5 09/23/2023 4 Active Fluocinonide 0.05 % External Solution Apply to affected areas (scalp, back of neck and posterior ears) nightly as needed 60 mL 0 03/19/2023 4 Discontinue d(Medicatio n List Clean Up) documented as of this encounter (statuses as of 09/23/2023) Active Problems Problem Noted Date Diagnosed Date Permanent atrial fibrillation 09/23/2023 Bipolar 1 disorder 02/12/2023 Inguinal hernia of left side without obstruction or gangrene 09/03/2022 Hypertension 09/03/2022 Chronic atrial fibrillation 02/28/2020 History of MO (myocardial infarction) 05/23/2017 History of nonmelanoma skin cancer 04/22/2017 Overview: 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 cheek - 2015 Hx of BCC on left cheek - 2014 Coronary artery disease invo lving kar[place] coronary artery of karuk heart without angina pectoris 11/19/2016 History of basal cell carcinoma of skin 05/24/20 15 documented as of this encounter (statuses as of 09/23/2023) Resolved Problems Problem Noted Date Diagnosed Date Resolved Date Chronic kidney disease, stage 3a 11/12/2021 08/13/2022 Overview: Per CKD protocol Prediabetes 12/09/2017 06/02/2018 Overview: Per Prediabetes protocol #1 Chronic atrial fibrillation 11/25/2017 12/01/2018 History of MO (myocardial infarction) 05/23/2017 05/23/2017 Paroxysmal atrial fibrillation 05/24/2015 10/04/2021 Bipolar disorder, in full re mission, most recent episode depressed 05/24/2015 02/12/2023 Atrial fibrillation and flutter 05/24/2015 S/P CABG (coronary artery bypass graft) 05/23/2017 MO (myocardial infarction) 0 05/23/2017 Overview: 3 in 2011 - 3 stents and an ablation done Manic episode 11/19/2016 Bipolar disorder (manic depression) 05/24/2015 documented as of this encounter (statuses as of 09/23/2023) Immunizations Name Administration Dates Next Due COVID-19 [...] Sign Reading Time Taken Comments Blood Pressure 134/74 09/23/2023 3:27 PM EST Pulse 48 09/23/2023 3:27 PM EST Temperature 36.3 C (97.3 F) 09/23/2023 3:27 PM ES T Respiratory Rate 16 09/23/2023 3:27 PM EST Oxygen Saturation 100% 09/23/2023 3:27 PM EST Inhaled Oxygen Concentration - - Weight 64.5 kg (142 lb 3.2 oz) 09/23/2023 3:27 P M EST Height - - Body Mass Index 23.85 07/10/2023 11:38 AM EST documented in this encounter Progress Notes * Luis Espinoza DO - 09/23/2023 3:38 PM EST Subjective: Andrade Mcfarlane is a 83 year old male. Chief Complaint Patient presents with Follow Up HPI: Pt here in follow-up. Inguinal hernia fixed and no real complicatons. Hypomanic episode and psychiatrist discussed. Doing well on Carbetrol currently. I will continue toprescribe for him. His scripts [facility] and it has been cheaper. He was on a ladder 4-5 days ago. Coming down he fell off 4-5 steps from the bottom. He landed on his back. He had a mild pain on the right front abdomen that is more all over his abdomen now. IT was only painful with standing at first. His pain is more continuous now. No numbness or tingling. No change in his bowels. When he eats food his nose starts to run. A bad nuisance when eating. His told him to start flonase but it has not helped. We discussed trying slaritin or sadiq. 4-5 years ago he took Viagra. He has had persistent ED. PMHx, meds, and allergies reviewed Patient Active Problem List Diagnosis Code History of basal cell carcinoma of skin Z85.828 Coronary artery disease involving karuk coronary artery of karuk heart without angina pectoris I25.10 History of nonmelanoma skin cancer Z85.828 History of MO (myocardial infarction) I25.2 Chronic atrial fibrillation (HCC) I48.20 Inguinal hernia of left side without obstruction or gangrene K40.90 Hypertension I10 Bipolar 1 disorder (HCC) F31.9 Permanent atrial fibrillation ([facility]) I48.21 Current Outpatient Medications Medication Sig Dispense Refill [...] tablet by mouth atbedtime 90 Capsule 3 Triamterene-HCTZ 37.5-25 MG Oral Tablet ((Maxzide-25)) Take 1 Tablet by mouth in the morning. 90 Tablet 5 amLODIPine Besylate 10 MG Oral Tablet (Norvasc) Take 1 Tablet by mouth in the morning. 90 Tablet 3 Metoprolol Tartrate 25 MG Oral Tablet (Lopressor) take 1 tablet by mouth every evening with dinner 90 Tablet 3 Rosuvastatin Calcium 40 MG Oral Tablet (Crestor) take 1 tablet by mouth once daily with dinner 90 Tablet 3 Warfarin Sodium 2 MG Oral Tablet (Coumadin) TAKE 1 TABLET BY MOUTH DAILY FRIDAY, FRIDAY,FRIDAY AND 2 TABLETS ALL OTHER DAYS OR DIRECTED BY COAG CLINIC 132 Tablet 3 Ketoconazole 2 % External Shampoo (Nizoral) Apply to scalp (as shampoo) and behind ears and back jarred rios, wait 5 min, then rinse 120 mL 0 No current facility-administered medications for this visit. Review of patient's allergies indicates: Allergen Reactions Environmental [Pollen] Hay fever per patient OBJECTIVE: BP 134/74 | Pulse 48 | Temp 36.3 C (97.3 F) (Tympanic) | Resp 16 | Wt 64.5 kg (142 lb 3.2 oz) |SpO2 100% | BMI 23.85 kg/m | BSA 1.72 m Estimated body mass index is 23.85 kg/m as calculated from the following: Height as of 07/10/23: 1.645 m (5' 4.75"). Weight as of this encounter: 64.5 kg (142 lb 3.2 oz). BP Readings from Last 3 Encounters: 09/23/23 134/74 07/10/23 124/60 02/12/23 126/68 Wt Readings from Last 3 Encounters: 09/23/23 64.5 kg (142 lb 3.2 oz) 07/10/23 64 kg (141 lb) 02/12/23 63.2 kg (139 lb 6.4 oz) ROS: Negative except for above PHYSICAL EXAM: General: alert, healthy, and no distress Head: Normocephalic, No masses, lesions, tenderness or abnormalities Abdomen: abdomen soft, normal bowel sounds, no masses or organomegaly, and non- distended. Pain to palpation throughout but mostlyu focused in RUQ. He is positive for guarding Back: back symmetric, no curvature, no costovertebral angle tenderness, range of motion is normal. No pain to palpation of his lumbar spine ASSESSMENT/Plan Coronary artery disease involving karuk coronary artery of karuk heart without angina pectoris (Primary) - COMPREHENSIVE METABOLIC PANEL; Future; Expected date: 03/23/2024 - LIPID PANEL WITH DIRECT LDL IF TG IS HIGH; Future; Expected date: 03/23/2024 Permanent atrial fibrillation (HCC) Chronic atrial fibrillation (HCC) Erectile dysfunction, unspecified erectile dysfunction type - Sildenafil Citrate 50 MG Oral Tablet (Viagra); Take 1 Tablet by mouth once for 1 dose. 1-4 hours before intercourse, no more than 1 dose in 24 hours. Fall, initial encounter - CT ABD/PELVIS WO IV/ORAL CONTRAST; Future; Expected date: 09/24/2023 Abdominal guarding - CT ABD/PELVIS WO IV/ORAL CONTRAST; Future; Expected date: 09/24/2023 Abdominal pain, generalized - CT ABD/PELVIS WO IV/ORAL CONTRAST; Future; Expected date: 09/24/2023 Hx of senior living use of blood thinners - CT ABD/PELVIS WO IV/ORAL CONTRAST; Future; Expected date: 09/24/2023 I spent a total of 30 minutes on the date of service in preparation, delivery, and documentation ofthe care provided to this patient, excluding any time spent on the performance of any procedure or separately billable services. At first I was concerned about a compression fracture but none of his pain seems radicular. It is more of a pain to palpation and guarding. We discussed my concern for some form of bleed from his fall and blood thinner. We discussed gettign a CT stat today but he'd rather wait until tomorrow. We discussed getting to the ED if his pain worsens. The above was discussed and understanding was expressed. Luis Espinoza DO documented in this encounter Nursing Notes * Miryam Bryant LPN - 09/23/2023 3:27 PM EST Andrade Mcfarlane presents for 6 month recheck. Medications & HM reviewed. documented in this encounter Plan of Treatment Upcoming Encounters Date Type Department Care Team (Late st Contact Info) Description 10/09/2023 11:15 AM EST Office Visit Dermatology [facility] [address] [facility] [place] [address] Lorenzo Hoyt MD [address] [facility] [place] [address] 10/20/2023 9:20 AM EST Anticoagulation Pharmacy, [facility] [address] [facility] [place] [address] Pharmacist1, [facility] [address] [address] [place], [place] [address] 04/14/2024 10:20 AM EDT Office Visit Family Practice [facility] [address] [facility] [address] [place], [place] [address] Luis Espinoza DO [address] [facility] [address] [place], [place] [address] Pending Results Name Type Priority Associated Diagnoses Date /Time CT ABD/PELVIS W IV CONTRAST - WO ORAL CONTRAST Medical Imaging STAT Fall, initial encounter Abdominal guarding Abdominal pain, generalized Hx of senior living use of blood thinners 09/23/2023 4:21 PM EST Scheduled Orders Name Type Priority Associated Diagnoses Orde r Schedule COMPREHENSIVE METABOLIC PANEL Lab Routine Coronary artery disease involving karuk coronary artery of karuk heart without angina pectoris Expected: 03/23/2024 (Approximate), Expires: 09/23/2024 LIPID PANEL WITH DIRECT LDL IF TG IS HIGH Lab Routine Coronary artery disease involving karuk coronary artery of karuk heart without angina pectoris Expected: 03/23/2024, Expires: 09/23/2024 CT ABD/PELVIS W IV CONTRAST - WO ORAL CONTRAST Medical Imaging STAT Fall, initial encounter Abdominal guarding Abdominal pain, generalized Hx of senior living use of blood thinners Expected: 09/24/2023, Expires: 10/24/2024 Health Maintenance Due Date Last Done Comments [...] this encounter Medical Devices Implanted Type Area Flight Readiness Technician Device Identifier Shelf Expiration Date Model / Serial / Lot Clip Quick 2.8mm 230cm - [id number] Implanted:Qty: 1 on 08/19/2022 by Jojo Pearson MD at ENDOSCOPY [facility] [employer] 12/29/2024 [id number]-202UR.[id number] / / [id number] documented as of this encounter Visit Diagnoses Diagnosis Coronary artery disease involving karuk coronary artery of karuk heart without angina pectoris- Primary Permanent atrial fibrillation (HCC) Atrial fibrillation Chronic atrial fibrillation (HCC) Atrial fibrillation Erectile dysfunction, unspecified erectile dysfunction type Fall, initial encounter Abdominal guarding Other symptoms involving abdomen and pelvis Abdominal pain, generalized Hx of senior living use of blood thinners Long-term (current) use of anticoagulants documented in this encounter Advance Directives Documents on File Type Date Recorded Patient Personal Banking Representative Expl anation Advance Directives and Living Will 09/28/2016 LIVING WILL Care Teams Budget Accountant Relationship Specialty Start Date End Date Luis Espinoza DO [facility] [place] [address] PCP - General Family Medicine 02/16/17 documented as of this encounter
--- OUTSIDE RECORDS SUMMARY | 2023-10-29 11:54 | External Medical Summary ---
Author Name Unknown Address Unknown Organization [id number]:LABORATORY [facility] - [address] [place] [address] Laboratory Report Ordering Provider Test Date Status DARRION MAC 10/01/2023 08:13:24 Final Observation Date Value Abnormality Reference (Units ) Status Lipase 10/01/2023 08:13:24 1397 Above high normal 13 -60 (U/L) Final Performing Location LABORATORY [facility] - [address] [place] [address]
--- OUTSIDE RECORDS SUMMARY | 2023-10-29 11:54 | External Medical Summary ---
Author Name Unknown Address Unknown Organization K09:[facility] [address] [place] [address] Laboratory Report Ordering Provider Test Date Status DARRION MAC 09/25/2023 08:48:45 Final Observation Date Value Abnormality Reference (Units ) Status BUN 09/25/2023 08:48:45 46 Above high normal 6-20 (mg/dL) Final Creatinine 09/25/2023 08:48:45 2.1 Above high normal 0.6-1.2 (mg/dL) Final Glomerular filtration rate/1.73 sq M.predicted [Volume Rate/Area] in Serum, Plasma or Blood by Creatinine-based formula (CKD-EPI) 09/25/2023 08:48:45 32 Below low normal >=60 (mL/min) Final eGFR is calculated based on the CKD-EPI 2020 equation SODIUM 09/25/2023 08:48:45 141 135-146 (m mol/L) Final Potassium 09/25/2023 08:48:45 4.9 3.5-5.1 (m mol/L) Final Cl 09/25/2023 08:48:45 101 98-107 (mm ol/L) Final CO2 09/25/2023 08:48:45 27 22-32 (mmo l/L) Final Anion gap 09/25/2023 08:48:45 13 7-15 (mmol /L) Final Glucose 09/25/2023 08:48:45 125 Above high normal 70 -120 (mg/dL) Final Albumin 09/25/2023 08:48:45 4.4 3.8-5.0 (g /dL) Final AST (Aspartate aminotransferase) 09/25/2023 08:48:45 28 10-50 (U/L) Fin al Result may be falsely elevat ed due to hemolysis. Alk Phos 09/25/2023 08:48:45 106 35-130 (U/ L) Final Bilirubin, Total 09/25/2023 08:48:45 0.5 <=1 .2 (mg/dL) Final Calcium 09/25/2023 08:48:45 9.4 8.4-10.2 ( mg/dL) Final Protein 09/25/2023 08:48:45 7.1 6.0-8.3 (g /dL) Final ALT (Alanine aminotransferase) 09/25/2023 08:48:45 26 10-50 (U/L) Final Performing Location [facility] [address] [place] [address]
--- OUTSIDE RECORDS SUMMARY | 2023-10-29 11:54 | External Medical Summary | Summary of Care ---
Author Name Unknown Organization [facility] Address [address] [place] [address] Phone [phone] Care Team Providers Care Custodian Manager Name Role Phone Luis Espinoza DO Primary Care Provider [phone] Reason for Visit * Reason Onset Date Comments Test Results 09/23/2023 Unexpected or In determinate Result Encounter Details Date Type Department Care Team (Late st Contact Info) Description 09/23/2023 Telephone Family Practice [facility] [place] [address] [facility] [place] [address] Luis Espinoza DO [address] [facility] [place] [address] Test Results (Unexpected or Indeterminate ... Allergies [...] 10 MG Oral Tablet (Norvasc)Indication s:History of IL (myocardial infarction) Take 1 Tablet by mouth in the morning. 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 cheek - 2015 Hx of BCC on left cheek - 2014 Coronary artery disease invo lving [place] coronary artery of [place] heart without angina pectoris 11/19/2016 History of basal cell carcinoma of skin 05/24/20 15 documented as of this encounter (statuses as of 09/24/2023) Resolved Problems Problem Noted Date Diagnosed Date Resolved Date Chronic kidney disease, stage 3a 11/12/2021 08/13/2022 Overview: Per CKD protocol Prediabetes 12/09/2017 06/02/2018 Overview: Per Prediabetes protocol #1 Chronic atrial fibrillation 11/25/2017 12/01/2018 History of IL (myocardial infarction) 05/23/2017 05/23/2017 Paroxysmal atrial fibrillation 05/24/2015 10/04/2021 Bipolar disorder, in full re mission, most recent episode depressed 05/24/2015 02/12/2023 Atrial fibrillation and flutter 05/24/2015 S/P CABG (coronary artery bypass graft) 05/23/2017 IL (myocardial infarction) 0 05/23/2017 Overview: 3 in [...] encounter Miscellaneous Notes * Telephone Encounter - Kenia Montoya TECH - 09/23/2023 8:51 PM EST Hello- The radiologist discovered an unexpected or indeterminate finding on Andrade Mcfarlane ([id number]) and asks that you review the following [...] KD Lee Client Service Rep Diagnostic Medicine [place] documented in this encounter Plan of Treatment Upcoming Encounters Date Type Department Care Team (Late st Contact Info) Description 10/09/2023 11:15 AM EST Office Visit Dermatology [facility] [address] [place] [address] [address] Lorenzo Hoyt MD [address] [place] [address] [address] [address] 10/20/2023 9:20 AM EST Anticoagulation Pharmacy, [facility] [address] [place] [address] [address] [address] Pharmacist1, [facility] [address] [place] [address] [address] 04/14/2024 10:20 AM EDT Office Visit Family Practice [facility] [address] [place] [address] [address] Luis Espinoza DO [address] [facility], [place] [address] Health Maintenance Due Date Last Done Comments Depression Screening 08/11/2021 08/11/2020 COVID-19 Vaccine ( - 2022-24 season) 2023 11/15/2022, 07/04/2021, 10/30/2020, [...] this encounter Medical Devices Implanted Type Area Career Development Coordinator Device Identifier Shelf Expiration Date Model / Serial / Lot Clip Quick 2.8mm 230cm - [id number] Implanted:Qty: 1 on 08/19/2022 by Jojo Pearson MD at ENDOSCOPY [facility] [employer] 12/29/2024 HX-202UR.A / / [id number] documented as of this encounter Advance Directives Documents on File Type Date Recorded Patient Texture Artist Expl anation Advance Directives and Living Will 09/28/2016 LIVING WILL Care Teams Custodian Manager Relationship Specialty Start Date End Date Luis Espinoza DO [address] [place] [address] PCP - General Family Medicine 02/16/17 documented as of this encounter
--- OUTSIDE RECORDS SUMMARY | 2023-10-29 11:54 | External Medical Summary | Summary of Care ---
Author Name Unknown Organization [facility] Address [address] [facility] [place] [address] Phone [phone] Care Team Providers Care Fac Engineer Name Role Phone Luis Espinoza DO Primary Care Provider [phone] Encounter Details Date Type Department Care Team (Late st Contact Info) Description 10/01/2023 Orders Only PATIENT PORTAL DO NOT DELETE THIS DEPT USED BY [place] [address] Allergies Active Allergy Reactions Criticality Noted Date Comments Pollen 08/13/2017 Hay fever per patient documented as of this encounter (statuses as of 10/01/2023) Medications Medication Sig Dispensed Refills Start Date [...] 10 MG Oral Tablet (Norvasc)Indications :History of MS (myocardial infarction) Take 1 Tablet by mouth in the morning. 90 Tablet 3 03/21/2023 Active Metoprolol Tartrate 25 MG Oral Tablet (Lopressor)Indicatio ns:History of MS (myocardial infarction) take 1 tablet by mouth [...] as of this encounter (statuses as of 10/01/2023) Active Problems Problem Noted Date Diagnosed Date Permanent atrial fibrillation 09/23/2023 Bipolar 1 disorder 02/12/2023 Inguinal hernia of left side without obstruction or gangrene 09/03/2022 Hypertension 09/03/2022 Chronic atrial fibrillation 02/28/2020 History of MS (myocardial infarction) 05/23/2017 History of nonmelanoma skin [...] as of this encounter (statuses as of 10/01/2023) Resolved Problems Problem Noted Date Diagnosed Date Resolved Date Chronic kidney disease, stage 3a 11/12/2021 08/13/2022 Overview: Per CKD protocol Prediabetes 12/09/2017 06/02/2018 Overview: Per Prediabetes protocol #1 Chronic atrial fibrillation 11/25/2017 12/01/2018 History of MS (myocardial infarction) 05/23/2017 05/23/2017 Paroxysmal atrial fibrillation 05/24/2015 10/04/2021 Bipolar disorder, in full re mission, most recent episode depressed 05/24/2015 02/12/2023 Atrial fibrillation and flutter 05/24/2015 S/P CABG (coronary artery bypass graft) 05/23/2017 [place] (myocardial infarction) 0 05/23/2017 Overview: 3 in 2011 - 3 stents and an ablation done Manic episode 11/19/2016 Bipolar disorder (manic depression) 05/24/2015 documented as of this encounter (statuses as of 10/01/2023) Immunizations Name Administration Dates Next Due COVID-19 mRNA, LNP-s, No Pre serve, 2-Dose Series (Moderna) 10/30/2020,09/27/2020 COVID-19, mRNA, LNP-s, PF, B ooster, 100mcg/0.5mg (Moderna) 07/04/2021 Covid-19, Mrna, Lnp-s, Pf, B ivalent, 30 Mcg, IM, 12 yrs and above ([employer] Onvelop) 11/15/2022 H1N1 2009 Influenza, IM 09/04/2009 HEP [...] Description 10/08/2023 6:30 PM EST Appointment Radiology, [address] [place] [address] 10/09/2023 11:15 AM EST Office Visit Dermatology [facility] [place] [address] [facility], [place] [address] Lorenzo Hoyt MD [address] [facility] [address] [place], [place] [address] 10/20/2023 9:20 AM EST Anticoagulation Pharmacy, [facility] [place] [address] [facility] [address] [place], [place] [address] Pharmacist1, [facility] [address] [facility] [place] [address] 04/14/2024 10:20 AM EDT Office Visit Family Practice [facility] [place] [address] [facility] [address] [place], [place] [address] Luis Espinoza DO [address] [facility] [address] [place], [place] [address] Health Maintenance Due Date Last Done Comments Depression Screening 08/11/2021 08/11/2020 COVID-19 Vaccine ( season) 2023 11/15/2022, 07/04/2021, 10/30/2020, Additional history exists GFR 09/25/2024 09/25/2023, 03/02, 02/22/2022, Additional history exists Albumin/Creatinine Ratio 03/20/2026 03/20/2023 [...] this encounter Medical Devices Implanted Type Area Adoption Services Manager Device Identifier Shelf Expiration Date Model / Serial / Lot Clip Quick 2.8mm 230cm - [id number] Implanted:Qty: 1 on 08/19/2022 by Jojo Pearson MD at ENDOSCOPY [facility] [employer] 12/29/2024 [id number]-202UR.A / / [id number] documented as of this encounter Advance Directives Documents on File Type Date Recorded Patient Brokerage Branch Manager Expl anation Advance Directives and Living Will 09/28/2016 LIVING WILL Care Teams Fac Engineer Relationship Specialty Start Date End Date Luis Espinoza DO [address] [facility] [place] [address] PCP - General Family Medicine 02/16/17 documented as of this encounter
--- OUTSIDE RECORDS SUMMARY | 2023-10-29 11:54 | External Medical Summary | Summary of Care ---
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 cheek - 2015 Hx of BCC on left cheek - 2014 Coronary artery disease invo lving [place] coronary artery of [place] heart without angina pectoris 11/19/2016 History of basal cell carcinoma of skin 05/24/20 15 documented as of this encounter (statuses as of 09/25/2023) Resolved Problems Problem Noted Date Diagnosed Date Resolved Date Chronic kidney disease, stage 3a 11/12/2021 08/13/2022 Overview: Per CKD protocol Prediabetes 12/09/2017 06/02/2018 Overview: Per Prediabetes protocol #1 Chronic atrial fibrillation 11/25/2017 12/01/2018 History of [place] (myocardial infarction) 05/23/2017 05/23/2017 Paroxysmal atrial fibrillation 05/24/2015 10/04/2021 Bipolar disorder, in full re mission, most recent episode depressed 05/24/2015 02/12/2023 Atrial fibrillation and flutter 05/24/2015 S/P CABG (coronary artery bypass graft) 05/23/2017 [place] (myocardial infarction) 0 05/23/2017 Overview: 3 in 2011 - 3 stents and an ablation done Manic episode 11/19/2016 Bipolar disorder (manic depression) 05/24/2015 documented as of this encounter (statuses as of 09/25/2023) Immunizations Name Administration Dates Next Due COVID-19 [...] 10/09/2023 11:15 AM EST Office Visit Dermatology [facility] [address] [place] [address] Lorenzo Hoyt MD [address] [place], [place] [address] 10/20/2023 9:20 AM EST Anticoagulation Pharmacy, [facility] [place] [address] [facility] [address] [place] [address] Pharmacist1, [facility] [address] [facility] [place] [address] 04/14/2024 10:20 AM EDT Office Visit Family Practice [facility] [place] [address] [place], [place] [address] Luis Espinoza DO [address] [place], [place] [address] Pending Results Name Type Priority Associated Diagnoses Date /Time COMPREHENSIVE METABOLIC PANEL Lab Routine Pancreatic mass 09/25/2023 8:48 AM EST LIPASE Lab Routine Pancreatic mass 09/25/2023 8:48 AM EST CA 19-9 Lab Routine Pancreatic mass 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, unspecified 09/25/2023 8:48 AM EST Health Maintenance Due Date Last [...] this encounter Medical Devices Implanted Type Area Repair Coil Winder Device Identifier Shelf Expiration Date Model / Serial / Lot Clip Quick 2.8mm 230cm - [id number] Implanted:Qty: 1 on 08/19/2022 by Jojo Pearson MD at ENDOSCOPY [facility] [employer] [facility] 12/29/2024 HX-202UR.A / / [id number] documented as of this encounter Visit Diagnoses Diagnosis Pancreatic mass Unspecified disease of pancreas 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
--- OUTSIDE RECORDS SUMMARY | 2023-10-29 11:54 | External Medical Summary | Summary of Care ---
Author Name Unknown Organization [facility] Address [address] [place] [address] Phone [phone] Care Team Providers Care Supervisor Sawing And Assembly Name Role Phone Luis Espinoza DO Primary Care Provider [phone] Reason for Visit * Reason Onset Date Comments Test Results 09/23/2023 Unexpected or In determinate Result Encounter Details Date Type Department Care Team (Late st Contact Info) Description 09/23/2023 Telephone Family Practice [facility] [place] [address] [place] [address] Luis Espinoza DO [address] [facility] [place] [address] Test Results (Unexpected or Indeterminate ... Allergies [...] 10 MG Oral Tablet (Norvasc)Indication s:History of [place] (myocardial infarction) Take 1 Tablet by mouth in the morning. 90 Tablet 3 03/21/2023 Active Metoprolol Tartrate 25 MG Oral Tablet (Lopressor)Indicati ons:History of [place] (myocardial infarction) take 1 tablet by mouth [...] 24 hours. 10 Tablet 5 09/23/2023 09/23/2023 Active Hospital, Clinic, or Other Facility Administered Medication Ordered Dose Route Frequency Start Date End Date Status sodium chloride 0.9 % flush/inj 10 mL 10 mL IV PUSH ONCE 09/23/2023 09/24/2023 Active documented as of this encounter (statuses [...] - 2014 Coronary artery disease invo lving [place] coronary artery of [place] heart without angina pectoris 11/19/2016 History of [...] unexpected or indeterminate finding on Andrade Mcfarlane ([id number]) and asks that you review the following [...] KD Lee Client Service Rep Diagnostic Medicine [place] documented in this encounter Plan of Treatment Upcoming Encounters Date Type Department Care Team (Late st Contact Info) Description 10/09/2023 11:15 AM EST Office Visit Dermatology [place] [address] [place] [address] [address] Lorenzo Hoyt MD [address] [place] [address] [address] 10/20/2023 9:20 AM EST Anticoagulation Pharmacy, [place] [address] [place] [address] [address] Pharmacist1, [facility] [address] [place] [address] 04/14/2024 10:20 AM EDT Office Visit Family Practice [place] [address] [place] [address] [address] Luis Espinoza DO [address] [place] [facility] [place] [place] [address] Health Maintenance Due Date Last Done Comments [...] this encounter Medical Devices Implanted Type Area Screen Printing Equipment Setter Device Identifier Shelf Expiration Date Model / Serial / Lot Clip Quick 2.8mm 230cm - [id number] Implanted:Qty: 1 on 08/19/2022 by Jojo Pearson MD at ENDOSCOPY [facility] [employer] 12/29/2024 HX-202UR.A / / [id number] documented as of this encounter Advance Directives Documents on File Type Date Recorded Patient Manager Pet Expl anation Advance Directives and Living Will 09/28/2016 LIVING WILL Care Teams Supervisor Sawing And Assembly Relationship Specialty Start Date End Date Luis Espinoza DO [address] [place] [address] PCP - General Family Medicine 02/16/17 documented as of this encounter
--- OUTSIDE RECORDS SUMMARY | 2023-10-29 11:54 | External Medical Summary ---
Author Name Unknown Address Unknown Organization K01:[facility] [address] [place] [address] Laboratory Report Ordering Provider Test Date Status DARRION MAC 09/25/2023 08:48:45 Final Observation Date Value Abnormality Reference (Units ) Status Cancer Ag 19-9 09/25/2023 08:48:45 11.3 <35.0 (U/mL) Final Performing Location [facility] [address] [place] [address]
--- OUTSIDE RECORDS SUMMARY | 2023-10-29 11:54 | External Medical Summary | Summary of Care ---
Author Name Unknown Organization [facility] Address [address] [place] [facility] [place] [address] Phone [phone] Care Team Providers Care Outpatient Clerk Name Role Phone Luis Espinoza DO Primary Care Provider [phone] Reason for Visit * Reason Comments Outpatient Testing Encounter Details Date Type Department Care Team (Late st Contact Info) Description 10/01/2023 8:10 AM EST Laboratory Laboratory [facility] [address] [place] [phone] [facility] Lab Scenery [address] [place] [address] HTN, goal below 140/90; Pancreatic mass Allergies Active Allergy Reactions Criticality Noted Date [...] 10 MG Oral Tablet (Norvasc)Indications :History of [place] (myocardial infarction) Take 1 Tablet by mouth in the morning. 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 cheek - 2015 Hx of BCC on left cheek - 2014 Coronary artery disease invo lving [place] coronary artery of [place] heart without angina pectoris 11/19/2016 History of basal cell carcinoma of skin 05/24/20 15 documented as of this encounter (statuses as of 10/01/2023) Resolved Problems Problem Noted Date Diagnosed Date Resolved Date Chronic kidney disease, stage 3a 11/12/2021 08/13/2022 Overview: Per CKD protocol Prediabetes 12/09/2017 06/02/2018 Overview: Per Prediabetes protocol #1 Chronic atrial fibrillation 11/25/2017 12/01/2018 History of [place] (myocardial infarction) 05/23/2017 05/23/2017 Paroxysmal atrial fibrillation 05/24/2015 10/04/2021 Bipolar disorder, in full re mission, most recent episode depressed 05/24/2015 02/12/2023 Atrial fibrillation and flutter 05/24/2015 S/P CABG (coronary artery bypass graft) 05/23/2017 [place] (myocardial infarction) 0 05/23/2017 Overview: 3 in [...] Description 10/08/2023 6:30 PM EST Appointment Radiology, [facility] [address] [place] [address] 10/09/2023 11:15 AM EST Office Visit Dermatology [facility] [place] [address] [place] [address] Lorenzo Hoyt MD [address] [facility] [place] [address] 10/20/2023 9:20 AM EST Anticoagulation Pharmacy, [place] [employer] [address] [place] [address] Pharmacist1, [facility] [address] [facility] [place] [address] 04/14/2024 10:20 AM EDT [facility] [address] [facility] [place] [address] Luis Espinoza, [address] [facility] [place] [address] Pending Results Name Type Priority Associated Diagnoses Date /Time COMPREHENSIVE METABOLIC PANEL Lab Routine Pancreatic mass 10/01/2023 8:13 AM EST LIPASE Lab Routine Pancreatic mass 10/01/2023 8:13 AM EST Health Maintenance Due Date Last Done Comments Depression Screening 08/11/2021 08/11/2020 COVID-19 Vaccine (2022- season) 2023 11/15/2022, 07/04/2021, 10/30/2020, Additional history exists GFR 09/25/2024 09/25/2023, 07/, 02/22/2022, Additional history exists Albumin/Creatinine Ratio 03/20/2026 [...] this encounter Medical Devices Implanted Type Area Informatica Developer Device Identifier Shelf Expiration Date Model / Serial / Lot Clip Quick 2.8mm 230cm - [id number] Implanted:Qty: 1 on 08/19/2022 by Jojo Pearson MD at ENDOSCOPY [facility] [employer] 12/29/2024 HX-202UR.A / / [id number] documented as of this encounter Visit Diagnoses Diagnosis HTN, goal below 140/90 Unspecified essential hypertension Pancreatic mass Unspecified disease of pancreas documented in this encounter Advance Directives Documents on File Type Date Recorded 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 [place] [address] PCP - General Family Medicine 02/16/17 documented as of this encounter
--- OUTSIDE RECORDS SUMMARY | 2023-10-29 11:54 | External Medical Summary | Summary of Care ---
Author Name Unknown Organization [facility] Address [address] [place] [facility] [place] [address] Phone [phone] Care Team Providers Care Special Agent Fbi Name Role Phone Luis Espinoza DO Primary Care Provider [phone] Reason for Visit * Reason Onset Date Comments Test Results 09/23/2023 Unexpected or In determinate Result Encounter Details Date Type Department Care Team (Late st Contact Info) Description 09/23/2023 Telephone Family Practice [facility] [address] [facility] [place] [address] Luis Espinoza DO [address] [facility] [place] [address] Test Results (Unexpected or Indeterminate ... Allergies [...] - 2014 Coronary artery disease invo lving [place] coronary artery of [place] heart without angina pectoris 11/19/2016 History of [...] unexpected or indeterminate finding on Andrade Mcfarlane ([id number]) and asks that you review the following [...] KD Lee Client Service Rep Diagnostic Medicine [place] documented in this encounter Plan of Treatment Upcoming Encounters Date Type Department Care Team (Late st Contact Info) Description 10/09/2023 11:15 AM EST Office Visit Dermatology [place] [address] [place] [address] [address] Lorenzo Hoyt MD [address] [place] [address] [address] 10/20/2023 9:20 AM EST Anticoagulation Pharmacy, [place] [address] [place] [address] [address] Pharmacist1, [facility] [address] [place] [address] 04/14/2024 10:20 AM EDT Office Visit Family Practice [place] [address] [place] [address] Luis Espinoza DO [address] [facility], [place] [address] Health Maintenance Due Date Last Done Comments [...] this encounter Medical Devices Implanted Type Area Portable Router Operator Device Identifier Shelf Expiration Date Model / Serial / Lot Clip Quick 2.8mm 230cm - [id number] Implanted:Qty: 1 on 08/19/2022 by Jojo Pearson MD at ENDOSCOPY [facility] [employer] 12/29/2024 HX-202UR.A / / [id number] documented as of this encounter Advance Directives Documents on File Type Date Recorded Patient Genetic Scientist Expl anation Advance Directives and Living Will 09/28/2016 LIVING WILL Care Teams Special Agent Fbi Relationship Specialty Start Date End Date Luis Espinoza DO [address] [place] [address] PCP - General Family Medicine 02/16/17 documented as of this encounter
--- OUTSIDE RECORDS SUMMARY | 2023-10-29 11:54 | External Medical Summary | Summary of Care ---
Author Name Unknown Organization [facility] Address [address] [facility] [place] [address] Phone [phone] Care Team Providers Care Shank Rander Name Role Phone Luis Espinoza DO Primary Care Provider [phone] Encounter Details Date Type Department Care Team (Late st Contact Info) Description 10/01/2023 Telephone Cardiology, [facility] [address] [facility] [place] [address] AnGabi goodman CRNP [address] [place] [address] Allergies Active Allergy Reactions Criticality Noted Date [...] 10 MG Oral Tablet (Norvasc)Indications :History of [place] (myocardial infarction) Take 1 Tablet by mouth in the morning. 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 cheek - 2015 Hx of BCC on left cheek - 2014 Coronary artery disease invo lving [place] coronary artery of [place] heart without angina pectoris 11/19/2016 History of basal cell carcinoma of skin 05/24/20 15 documented as of this encounter (statuses as of 10/02/2023) Resolved Problems Problem Noted Date Diagnosed Date Resolved Date Chronic kidney disease, stage 3a 11/12/2021 08/13/2022 Overview: Per CKD protocol Prediabetes 12/09/2017 06/02/2018 Overview: Per Prediabetes protocol #1 Chronic atrial fibrillation 11/25/2017 12/01/2018 History of [place] (myocardial infarction) 05/23/2017 05/23/2017 Paroxysmal atrial fibrillation 05/24/2015 10/04/2021 Bipolar disorder, in full re mission, most recent episode depressed 05/24/2015 02/12/2023 Atrial fibrillation and flutter 05/24/2015 S/P CABG (coronary artery bypass graft) 05/23/2017 [place] (myocardial infarction) 0 05/23/2017 Overview: 3 in [...] Encounter - Radha Mendiola OSA - 10/02/2023 9:08 AM EST Pt called back and accepted the appointment for today at 10. * Telephone Encounter - Radha Mendiola OSA [...] 10/02/2023 10:00 AM EST Office Visit Cardiology, [facility] [address] [facility] [place] [address] Gabi Nolan CRNP 132 [facility] [place] [address] 10/08/2023 6:30 PM EST [address]ointment Radiology, [address] [place] [address] 10/09/2023 11:15 AM EST Office Visit Dermatology [facility] [place] [address] [place] [place] [address] Lorenzo Hoyt MD 200 [facility] [place] [address] 10/20/2023 9:20 AM EST [facility] [place] [address] [facility] [place] [address] Pharmacist1, [facility] [address] [place] [address] 04/14/2024 10:20 AM EDT Office Visit Family Practice [place] [employer] [address] [place] [address] Luis Espinoza DO 200 [facility] [place] [address] Health Maintenance Due Date Last Done Comments [...] this encounter Medical Devices Implanted Type Area Adjunct Teacher Device Identifier Shelf Expiration Date Model / Serial / Lot Clip Quick 2.8mm 230cm - [id number] Implanted:Qty: 1 on 08/19/2022 by Jojo Pearson MD at ENDOSCOPY [facility] [employer] 12/29/2024 HX-202UR.A / / [id number] documented as of this encounter Advance Directives Documents on File Type Date Recorded Patient Hourly Sign Language Interpreter Expl anation Advance Directives and Living Will 09/28/2016 LIVING WILL Care Teams Shank Rander Relationship Specialty Start Date End Date Luis Espinoza DO [address] [place] [address] PCP - General Family Medicine 02/16/17 documented as of this encounter
[2023-10-29] MEDS ORDERED: ePHEDrine sulfate 50 MG/5 ML SYR ONE (11:55)
--- OUTSIDE RECORDS SUMMARY | 2023-10-29 11:55 | External Medical Summary ---
Author Name Unknown Address Unknown Organization K09:[facility] [place] [address] Laboratory Report Ordering Provider Test Date Status GABRIELA SALAZAR V 09/08/2023 15:00:15 Final Therapeutic ranges for non-o perative patients:
Prophylaxsis/treatment of DVT: (Range:2.0-3.0)
Treatment of pulmonary embolism:(Range:2.0-3.0)
Prevention of systemic embolism from:
-tissue heart valves
-acute myocardial infarction
-valvular heart disease
-atrial fibrillation
(Range: 2.0-3.0)
Mechanical prosthetic valves: (Range: 2.5-3.5) Observation Date Value Abnormality Reference (Units ) Status INR in Capillary blood by Coagulation assay 09/08/2023 15:00:15 1.8 (INR) Final Performing Location [facility] [place] [address]
--- OUTSIDE RECORDS SUMMARY | 2023-10-29 11:55 | External Medical Summary | Summary of Care ---
Author Name Unknown Organization [facility] Address [address] [facility] [place] [address] Phone [phone] Care Team Providers Care Drill Setup Operator Name Role Phone Luis Espinoza DO Primary Care Provider [phone] Reason for Visit * Reason Comments Dosage Adjustment In Person (Anticoag Cl inic) Encounter Details Date Type Department Care Team (Latest Contact Info) Description 07/23/2023 9:20 AM EST Anticoagulation Pharmacy, [facility] [address] [facility] [place] [address] Pharmacist1, [facility] [address] [place] [address] Chronic atrial fibrillation (HCC)* Allergies Active Allergy Reactions Criticality Noted Date Comments Pollen 08/13/2017 Hay fever per patient documented as of this encounter (statuses as of 07/23/2023) Medications Medication Sig Dispensed Refills Start Date End Date Status aspirin 81 MG chewable tablet mornings 0 Active latanoprost (XALATAN) 0.005 % ophthalmic solution Instill into both eyes. 1 drop, left eye only, bedtime 0 [...] the morning. 90 Tablet 3 11/08/2022 Active Warfarin Sodium 2 MG Oral Tablet (Coumadin)Indication s:Chronic atrial fibrillation (HCC) TAKE 2 TABLETS BY MOUTH DAILY FRIDAY, FRIDAY,FRIDAY AND 1 TABLET ALL OTHER DAYS DIRECTED BY COAG CLINIC 120 Tablet 3 11/28/2022 Active carBAMazepine ER 300 MG Oral Capsule [...] then rinse 120 mL 0 03/19/2023 Active Fluocinonide 0.05 % External Solution Apply to affected areas (scalp, back of neck and posterior ears) nightly as needed 60 mL 0 03/19/2023 Active amLODIPine Besylate 10 MG Oral Tablet (Norvasc)Indications :History of PA (myocardial infarction) Take 1 Tablet by mouth in the morning. 90 Tablet 3 03/21/2023 Active Metoprolol Tartrate 25 MG Oral Tablet (Lopressor)Indicatio ns:History of PA (myocardial infarction) take 1 tablet by mouth every evening with dinner 90 Tablet 3 04/21/2023 Active Rosuvastatin Calcium 40 MG Oral Tablet (Crestor)Indications :S/P CABG (coronary artery bypass graft),ST elevation myocardial infarction (STEMI), unspecified artery (HCC) take 1 tablet by mouth once daily with dinner 90 Tablet 3 05/12/2023 Active documented as of this encounter (statuses as of 07/23/2023) Active Problems Problem Noted Date Diagnosed Date Bipolar 1 disorder 02/12/2023 Inguinal hernia of left side without obstruction or gangrene 09/03/2022 Hypertension 09/03/2022 Chronic atrial fibrillation 02/28/2020 History of PA (myocardial infarction) 05/23/2017 History of nonmelanoma skin cancer 04/22/2017 Overview: 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 cheek - 2015 Hx of BCC on left cheek - 2014 Coronary artery disease invo lving [place] coronary artery of [place] heart without angina pectoris 11/19/2016 History of basal cell carcinoma of skin 05/24/20 15 documented as of this encounter (statuses as of 07/23/2023) Resolved Problems Problem Noted Date Diagnosed Date [...] as of this encounter (statuses as of 07/23/2023) Immunizations Name Administration Dates Next Due COVID-19 [...] (Prevnar) 05/21/2016 Pneumococcal Polysaccharide PPV23 (Pneumovax) 10/24/2009,08/08/2004 SEASONAL INFLUENZA, PF, 6 M & Above, IM , (FLULAVAL or FLUZONE) 06/02/2018 Season Influenza, Quad, PF, Adjuvanted, 65+ Yrs, IM (FLUAD) 06/27/2021,06/30/2020 Seasonal Influenza, Quadriva lent Hd (Fluzone Hd) [...] as of this encounter Progress Notes * Maico Raman RPh - 07/23/2023 9:15 AM EST Images from the original note were not included. Medication Therapy Disease Management - Anticoagulation Andrade Mcfarlane 1940 Patient Findings Negatives: Signs/symptoms of thrombosis, Signs/symptoms of bleeding, Change in health, Change in alcohol use, Change in activity, Upcoming invasive procedure, Missed doses, Extra doses, Change in medications, Change in diet/appetite, Bruising INR Result As of 07/23/2023 INR goal: 2.0-3.0 INR used for dosin.8 (07/23/2023) Warfarin Plan As of 07/23/2023 Full warfarin instructions: 07/23: 4 mg; Otherwise 2 mg every Mon, Wed, Fri; 4 mg all other days Next INR check: 09/03/2023 Repeat PT/INR in 6 week(s) Weekly dose: increased Maico Adams RPh, CACP, CDE Clinical Pharmacist Medication Therapy Management Clinic 07/23/2023 9:22 AM documented in this encounter Plan of Treatment Upcoming Encounters Date Type Department Care Team (Late st Contact Info) Description 09/08/2023 2:50 PM EST Anticoagulation Pharmacy, [facility] [address] [facility] [place] [address] Pharmacist1, [facility] [address] [place] [address] 09/08/2023 3:00 PM EST Office Visit Psychiatry, [facility] [address] [place] [address] Chelsey Mejia CRNP [address] [place] [address] 09/23/2023 3:20 PM EST Office Visit Family Practice [facility] [place] [address] [facility] [place] [address] Luis Espinoza DO [address] [facility] [place] [address] 10/09/2023 11:15 AM EST Office Visit Dermatology [facility] [place] [address] [facility] [place], [place] [address] Lorenzo Hoyt MD [address] [facility] [place] [address] Health Maintenance Due Date Last Done Comments Depression Screening 08/11/2021 08/11/2020 COVID-19 Vaccine (2022- season) 2023 11/15/2022, 07/04/2021, 10/30/2020, Additional history exists Influenza Vaccine (FLU shot) (#1) 2023 07/05/2022, 06/27/2021, 06/27/2021, Additional history exists GFR 03/20/2024 03/20/2023, 01/31, 10/16/2021, Additional history exists Albumin/Creatinine Ratio 03/20/2026 03/20/2023 DTaP,Tdap,and Td Vaccines (3 - Td or Tdap) 12/26/2030 12/26/2020, 11/16/2010 Pneumococcal Vaccine: 65+ Years Completed 05/21/2016, 10/24/2009, 08/08/2004 Zoster Vaccines Completed 09/30/2018, 05/2018, 12/17/2011 COLONOSCOPY-EVERY 3 YRS AGES 18-100 Discontinued 08/19/2022, 08/19/2022, 12/30/2018, Additional history exists GARDASIL-HPV IMMUNIZATION SERIES Aged Out No longer eligible based on patient's age to complete this topic Hepatitis B Aged Out No longer eligi ble based on patient's age to complete this topic MENINGOCOCCAL (MENACTRA/MENVEO) Aged Out No longer eligible based on patient's age to complete this topic documented as of this encounter Medical Devices Implanted Type Area Environmental Coordinator Device Identifier Shelf Expiration Date Model / Serial / Lot Clip Quick 2.8mm 230cm - [id number] Implanted:Qty: 1 on 08/19/2022 by Jojo Pearson MD at ENDOSCOPY [facility] [employer] 12/29/2024 [id number] / [id number] documented as of this encounter Procedures Procedure Name Priority Date/Time Associated Diagnosis Comments INR FINGERSTICK, POINT OF CARE JESSENIA 07/23/2023 9:18 AM EST documented in this encounter Results * INR FINGERSTICK, POINT OF CARE (07/23/2023 9:18 AM EST) Fingerstick INR 1.8 INR 9:19 AM EST [facility] Blood 07/23/2023 9:18 AM EST 07/23/2023 9:19 AM EST Narrative [facility] - 07/23/2023 9:19 AM EST Therapeutic ranges for non-operative patients: Prophylaxsis/treatment of DVT: (Range:2.0-3.0) Treatment of pulmonary embolism:(Range:2.0-3.0) Prevention of systemic embolism from: -tissue heart valves -acute myocardial infarction -valvular heart disease -atrial fibrillation (Range: 2.0-3.0) Mechanical prosthetic valves: (Range: 2.5-3.5) [facility] Pharmacist1 LAB POINT OF C ARE TEST DOCKED DEVICE UNSOLICITED RESULTS [facility] [address] [place] [address] documented in this encounter Visit Diagnoses Diagnosis Chronic atrial fibrillation (HCC)- Primary Atrial fibrillation documented in this encounter Advance Directives Documents on File Type Date Recorded Patient Membership Assistant Expl anation Advance Directives and Living Will 09/28/2016 LIVING WILL Care Teams Drill Setup Operator Relationship Specialty Start Date End Date [facility]inoza [facility] [address] [facility] [address] PCP - General Family Medicine 02/16/17 documented as of this encounter
--- OUTSIDE RECORDS SUMMARY | 2023-10-29 11:55 | External Medical Summary | Summary of Care ---
Author Name Unknown Organization [facility] Address [address] [place] [facility] [place] [address] Phone [phone] Care Team Providers Care Edge Grinder Machine Name Role Phone Luis Espinoza DO Primary Care Provider [phone] Reason for Visit * Reason Comments Medication Management Follow Up Encounter Details Date Type Department Care Team (Late st Contact Info) Description 09/08/2023 3:00 PM EST Office Visit Psychiatry, [facility] [address] [facility] [place] [address] Chelsey Mejia CRNP [address] [facility] [place] [address] Bipolar 1 disorder, manic, mild (HCC)* Allergies Active Allergy Reactions Criticality Noted Date Comments Pollen 08/13/2017 Hay fever per patient documented as of this encounter (statuses as of 09/08/2023) Medications Medication Sig Dispensed Refills Start Date [...] 25 MG Oral Tablet (Lopressor)Indicatio ns:History of [place] (myocardial infarction) take 1 tablet by mouth [...] as of this encounter (statuses as of 09/08/2023) Active Problems Problem Noted Date Diagnosed Date [...] - 2014 Coronary artery disease invo lving [place] coronary artery of [place] heart without angina pectoris 11/19/2016 History of basal cell carcinoma of skin 05/24/20 15 documented as of this encounter (statuses as of 09/08/2023) Resolved Problems Problem Noted Date Diagnosed Date [...] as of this encounter (statuses as of 09/08/2023) Immunizations Name Administration Dates Next Due COVID-19 [...] as of this encounter Progress Notes * Chelsey Mejia, MARICARMEN - 09/08/2023 3:32 PM EST OUTPATIENT PSYCHIATRY Patient location: CLINIC. I was in the same facility as the patient. After connecting through [employer], patient was verified with two unique identifiers. Patient (or authorized legal sales representative education courses)was then informed that this was a Telemedicine visit and being conducted confidentially over securelines. My office door was closed. No one else was in the room with me. Patient acknowledged consentand understanding of privacy and security of the Telemedicine visit, and gave permission to have a telemedicine presenter stay in the room in order to assist with the history and to conduct the exam as needed. I informed the patient that I have reviewed their record in [facility] and presented the opportunity for them to ask any questions regarding the visit today. The patient agreed to participate. Provider reviewed elements of Outpatient Services Description including limits of confidentiality, how to contact the department, risks and benefits of treatment and consent for treatment. {Documentation Tip - Please note Sexual Orientation and Gender Identity information is visible to patient and/or proxy depending on access if documented in note or SOGI form : [id number]} Subjective HISTORY OF PRESENT ILLNESS: Andrade Mcfarlane is a 83 year old male who presents for medication management for Bipolar disorder. Per referral by pt's PCP, Dr. Alexis DO, dated 02/12/23: "His says he needs a psychiatrist again. He is finding old age to be boring. Not many interests or activities. Retired at age 51. 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 Used to feel like a purpose. Now doesn't feel a purpose. Too much time in front of the TV. He discussed going out and visiting different places. Spontaneously got in the car to go to [place]. He was thinking of going to his sister's wifebut that would have been bad. Decided to go to his brothers instead. He did not pickling grader the phone for hiw for awhile. When he got back he fought with his . He gets quiet when upset. In 1999 he ended up inpatient. He had a manic episode. He was hallucinating then. He thought he could solve the world's problems. They medicated him to the point of depression. Has been on Carbatrol since then." Pt states Dr. Espinoza had decreased Carbatrol gradually, but that resulted in change in mood, mostly observed by his . Pt often presents with increased irritability when mood is less stable. Ptstates that medication was increased to original dose and he has been feeling more stable. Pt states his would agree. As noted above, first significant manic episode experienced in 1999 when pt was hospitalized for 5 days at [facility]. He admits to grandiose thoughts and attempted AWOL from the hospital. Pt states he was prescribed several different medications when IP, but does not recall the specificnames. He does relate being over medicated and attributes the depressive episode following IP to this. He describes not wanting to get out of bed, isolating. His convinced him to volunteer at the [employer] and this helped relieve depressive symptoms. 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 He was later called back [facility], but ultimately was offered shelter at 59 yo. After IP, pt was treated by a psychiatrist for 10 years. It was at this time he was started on Carbatrol and has been essentially stable until medication taper was attempted. He and his moved to [facility] [place] from [facility] 8 years ago. History of trauma, abuse, exploitation or trafficking: none PAST PSYCHIATRIC HISTORY Outpatient medication management and IP one time as noted above SUBSTANCE USE HISTORY: Alcohol very infrequently - less then monthly Pain screening: Is patient experiencing any pain related to today's visit? No FAMILY PSYCHIATRIC HISTORY: Psychiatric diagnoses: Father had erratic behavior at times Completed/attempted suicides: No Drug and alcohol abuse: No LEGAL HISTORY: none PERSONAL, FAMILY, AND SOCIAL HISTORY: I have reviewed the patient's social history. 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 He has a degree from [employer] in Art Additional community service involvement: None I have reviewed the patient's allergies, past medical/surgical history, and current medications. Cardiac History: Yes - S/P CABG and stents placed 2012 Head Injury/Seizures: No {Documentation Tip| The following screening questionnaires are available to complete by the provider- DWIGHT-7 PHQ-9 ASRS-5 [place] Suicide Screen: [id number]} Objective RECENT LABS/IMAGING: Relevant labs reviewed MENTAL STATUS EVALUATION: Appearance: age-appropriate and well dressed and groomed Behavior: cooperative and pleasant Speech: normal, rate, tone and volume Mood: euthymic Affect: euthymic Thought Process: goal directed Thought Content: denies suicidal ideations, homicidal ideations, auditory hallucinations, visual hallucinations, delusions, impulsivity to act out or preoccupation with violence Abstract Reasoning: intact Orientation: alert and oriented to person, place, time and situation Attention span/concentration as evidenced by: ability to sustain attention to examiner - intact Insight: good Judgment: good Assessment & Plan Formulation: Pt is 83 yo male with hx of symptoms consistent with Bipolar I disorder, most recent episode hypomanic who has been stabilized on carbamazepine ER 300 mg QHS for past 20 years. He experienced decompensation with taper of medication, but since medication increased moods have stabilized.No symptoms of depression or kel are noted upon today's assessment. We discussed option of increasing medication if necessary in the future if moods should become less stable, but presently, no changes are indicated. Pt is in agreement. 09/08/23: pt has been doing well. He denies issues with sleep. No issues with inappropriate irritability. Moods have been stable with no evidence of hypo/manic or depressed symptoms. Pt states his is helpful with alerting him to mood variations or increased irritability and will attend appts with him if she has concerns. Pt has been enjoying sporting events - football games, volleyball, women's soccer. Has been keeping busy at home. No issues with medication adherence or side effects. No change in medical conditions. Pt has been stable on carbamazepine ER 300 mg QHS for over 20 years with exception of trial taper. Since medications resumed at current dose, symptoms have returned to stable baseline. Pt is in agreement with following up with PCP for continued medication mangement. Plan is to discharge from psychiatry. Recommend continue on carbamazepine ER 300 mg QHS ongoing formanagement of Bipolar I diagnosis. DIAGNOSIS: ICD-10-CM 1. Bipolar 1 disorder, manic, mild (HCC) F31.11 PLAN: Medications: Medications by Pharm Class (Includes Only ADHD/Anti-Narcolepsy/Anti-Obesity/Anorexiants, Antidepressants, Antianxiety Agents, Antipsychotics/Antimanic Agents, Anticonvulsant, Hypnotics/Sedatives/Sleep Disorder Agents, Beta Blockers, Antihypertensive) Medication Sig Metoprolol Tartrate 25 MG Oral Tablet (Lopressor) take 1 tablet by mouth every evening with dinner carBAMazepine ER 300 MG Oral Capsule Extended Release 12 Hour (Carbatrol) take 1 tablet by mouth atbedtime Lisinopril 40 MG Oral Tablet Take 1 Tablet by mouth in the morning. Therapy/Community Resources: none Lab tests/Medical: continue with PCP and specialist as appropriate documented in this encounter Plan of Treatment Upcoming Encounters Date Type Department Care Team (Late st Contact Info) Description 09/23/2023 3:20 PM EST Office Visit Family Practice [facility] [place] [address] [facility] [place] [address] Luis Espinoza, [address] [facility] [place] [address] 10/09/2023 11:15 AM EST Office Visit Dermatology [facility] [place] [address] [facility] [place] [address] Lorenzo Hoyt MD [address] [facility] [place] [address] 10/20/2023 9:20 AM EST Anticoagulation Pharmacy, [facility] [place] [address] [facility] [place] [address] Pharmacist1, [facility] [address] [facility] [place] [address] Health Maintenance Due Date Last Done Comments [...] this encounter Medical Devices Implanted Type Area Raspberry Checker Device Identifier Shelf Expiration Date Model / Serial / Lot Clip Quick 2.8mm 230cm - [id number] Implanted:Qty: 1 on 08/19/2022 by Jojo Pearson MD at ENDOSCOPY [facility] [employer] 12/29/2024 [id number] / [id number] documented as of this encounter Visit Diagnoses Diagnosis Bipolar 1 disorder, manic, mild (HCC)- Primary Bipolar I disorder, most recent episode (or current) manic, mild documented in this encounter Advance Directives Documents on File Type Date Recorded 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
--- OUTSIDE RECORDS SUMMARY | 2023-10-29 11:55 | External Medical Summary | Summary of Care ---
Author Name Unknown Organization [facility] Address [address] [place] [address] Phone [phone] Care Team Providers Care Torpedo Worker Name Role Phone Luis Espinoza DO Primary Care Provider [phone] Encounter Details Date Type Department Care Team (Late st Contact Info) Description 09/08/2023 Documentation Psychiatry, [facility] [address] [facility] [place] [address] MejiaChelsey CRNP [address] [facility] [place] [address] Allergies Active Allergy Reactions Criticality Noted Date [...] 25 MG Oral Tablet (Lopressor)Indicatio ns:History of ID (myocardial infarction) take 1 tablet by mouth [...] - 2014 Coronary artery disease invo lving [place] coronary artery of [place] heart without angina pectoris 11/19/2016 History of [...] of this encounter Progress Notes * Chelsey Mejia CRNP - 09/08/2023 5:32 PM EST PSYCHIATRY DISCHARGE/TRANSFER SUMMARY 1. Summary of Services provided: Medication Management 2. Outcomes and referrals: Patient improved; is no longer in need of treatment; will continue care with PCP 3. Relevant psychosocial status: stable 4. Medications upon discharge: Warfarin Sodium 2 MG Oral Tablet (Coumadin) Rosuvastatin Calcium 40 MG Oral Tablet (Crestor) Metoprolol Tartrate 25 MG Oral Tablet (Lopressor) amLODIPine Besylate 10 MG Oral Tablet (Norvasc) Fluocinonide 0.05 % External Solution Ketoconazole 2 % External Shampoo (Nizoral) Triamterene-HCTZ 37.5-25 MG Oral Tablet ((Maxzide-25)) carBAMazepine ER 300 MG Oral Capsule Extended Release 12 Hour (Carbatrol) Lisinopril 40 MG Oral Tablet Meclizine HCl 25 MG Oral Tablet (Antivert) Fungi-Nail 25 % External Solution (Undecylenic Acid) Timolol Hemihydrate 0.5 % Ophthalmic Solution (Betimol) Fluorouracil 5 % External Cream (Efudex) Triamcinolone Acetonide 0.1 % External Cream (Aristocort) Potassium Citrate ER 15 MEQ (1620 MG) Oral Tablet Extended Release Vitamin D 50 MCG (2000 UT) Oral Capsule aspirin 81 MG chewable tablet latanoprost (XALATAN) 0.005 % ophthalmic solution 5. Diagnoses upon Discharge: Diagnoses Codes Comments Bipolar 1 disorder, manic, mild (HCC) - Primary F31.11 6. Medical History: Past Medical History: Diagnosis Date Atrial fibrillation and flutter (HCC) Does not realize when he goes in to it BCC (basal cell carcinoma), face Moh's done Bipolar disorder (manic depression) ([facility]) Glaucoma Manic episode ([facility]) 2000 1 week inpatient stay ID (myocardial infarction) ([facility]) 2011 3 in 2011 - 3 stents and an ablation done S/P CABG (coronary artery bypass graft) 1990 7. Additional Information: Psychotropic History Follow-up on September 23, 2022 with PCP Plan of care at time of discharge including referrals: Use crisis plan as needed Can consult us in the future as clinically indicated Patient and/or family has access to this document through [employer] documented in this encounter Plan of Treatment Upcoming Encounters Date Type Department Care Team (Late st Contact Info) Description 09/23/2023 3:20 PM EST Office Visit Family Practice [facility] [address] [facility] [address] [place], [place] [address] Luis Espinoza, [address] [facility] [address] [place], [place] [address] 10/09/2023 11:15 AM EST Office Visit Dermatology [facility] [place] [address] [facility] [place] [address] Lorenzo Hoyt MD [address] [facility] [address] [place], [place] [address] 10/20/2023 9:20 AM EST Anticoagulation Pharmacy, [facility] [place] [address] [facility] [place] [address] Pharmacist1, [facility] 200 [facility] [address] [place], [place] [address] Health Maintenance Due Date Last Done Comments [...] this encounter Medical Devices Implanted Type Area Neon Molder Device Identifier Shelf Expiration Date Model / Serial / Lot Clip Quick 2.8mm 230cm - [id number] Implanted:Qty: 1 on 08/19/2022 by Jojo Pearson MD at ENDOSCOPY [facility] Colon [id number] 12/29/2024 [id number]-202UR.[id number] / [id number] documented as of this encounter Advance Directives Documents on File Type Date Recorded 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
--- OUTSIDE RECORDS SUMMARY | 2023-10-29 11:55 | External Medical Summary | Summary of Care ---
Author Name Unknown Organization [facility] Address [address] [address] , [place] Care Team Providers Care Dip Filler Name Role Phone Bubba Espinoza DO Primary Care Provider [phone] Reason for Visit * Reason Onset Date Comments Medication Refill 08/11/2023 Encounter Details Date Type Department Care Team (Late st Contact Info) Description 08/11/2023 Refill Pharmacy, [facility] [place] [address] [facility] [place] [address] Pharmacist1, [facility] [address] [place] [address] Chronic atrial fibrillation (HCC) Allergies Active Allergy Reactions Criticality Noted Date Comments Pollen 08/13/2017 Hay fever per patient documented as of this encounter (statuses as of 08/11/2023) Medications Medication Sig Dispensed Refills Start Date [...] [facility] 132 Tablet 3 08/11/2023 Active Warfarin Sodium 2 MG Oral Tablet (Coumadin)Indicati ons:Chronic atrial fibrillation (HCC) TAKE 2 TABLETS BY MOUTH DAILY FRIDAY, FRIDAY, Y AND 1 TABLET ALL OTHER DAYS DIRECTED BY [facility] 120 Tablet 3 11/28/2022 3 Discontinue d(Refill) documented as of this encounter (statuses as of 08/11/2023) Active Problems Problem Noted Date Diagnosed Date [...] - 2014 Coronary artery disease invo lving [place] coronary artery of [place] heart without angina pectoris 11/19/2016 History of basal cell carcinoma of skin 05/24/20 15 documented as of this encounter (statuses as of 08/11/2023) Resolved Problems Problem Noted Date Diagnosed Date [...] as of this encounter (statuses as of 08/11/2023) Immunizations Name Administration Dates Next Due COVID-19 mRNA, LNP-s, No Pre serve, 2-Dose Series (Moderna) 10/30/2020,09/27/2020 COVID-19, mRNA, LNP-s, PF, B ooster, 100mcg/0.5mg (Moderna) 07/04/2021 Covid-19, Mrna, Lnp-s, Pf, B ivalent, 30 Mcg, IM, 12 yrs and above (Sun LifeLight) 11/15/2022 H1N1 2009 Influenza, IM 09/04/2009 HEP [...] encounter Miscellaneous Notes * Telephone Encounter - Km Martin RP - 08/11/2023 11:26 AM EST Signed Prescriptions: Disp Refills Warfarin Sodium 2 MG Oral Tablet (Coumadin)132 Ta*3 Sig: TAKE 1 TABLET BY MOUTH DAILY FRIDAY, FRIDAY,FRIDAY AND 2 TABLETS ALL OTHER DAYS OR DIRECTED BY [facility] Authorizing Provider: BUBBA ESPINOZA Ordering User: KM MARTIN * Telephone Encounter - Lilly Escamilla, choke reamer - 08/11/2023 10:31 AM EST Pending Prescriptions: Disp Refills Warfarin Sodium 2 MG Oral Tablet (Coumadi*132 Ta*3 Sig: TAKE 1 TABLET BY MOUTH DAILY FRIDAY, FRIDAY,FRIDAY AND 2 TABLETS ALL OTHER DAYS OR DIRECTED BY [facility] Last Visit: Visit date not found (in office), Visit date not found (telemedicine) Next Visit: Visit date not found If no future appointments scheduled, and last appointment is greater than a year ago, please schedule patient for a follow-up appointment Last date the medication was ordered: 11/28/2022 Pharmacy: [facility] [place] [address] [address] [facility] Is this request for a controlled substance? No. Urine Drug Screen:No results found for this or any previous visit. Patient Phone Numbers Labs: Lab Results Component Value Date/Time CREAT 1.7 (H) 03/20/2023 08:35 AM CREAT 1.17 10/01/2021 12:00 AM CREAT 1.3 (H) 09/13/2020 07:29 AM POTASSIUM 4.9 03/20/2023 08:35 AM POTASSIUM 4.6 10/01/2021 12:00 AM POTASSIUM 4.5 09/13/2020 07:29 AM TSH 2.22 09/13/2020 07:29 AM LDLCALC 62 03/20/2023 08:35 AM LDLCALC 53 09/13/2020 07:29 AM LDLDIRECT NOT APPLICABLE 09/13/2020 07:29 AM ALT 27 03/20/2023 08:35 AM ALT 37 09/13/2020 07:29 AM documented in this encounter Plan of Treatment Upcoming Encounters Date Type Department Care Team (Late st Contact Info) Description 09/08/2023 2:50 PM EST Anticoagulation Pharmacy, [facility] [place] [address] [facility] [place] [address] Pharmacist1, [facility] [address] [place] [address] 09/08/2023 3:00 PM EST Office Visit Psychiatry, [facility] [address] [place] [address] [address] Chelsey Mejia CRNP [address] [place] [address] 09/23/2023 3:20 PM EST Office Visit Family Practice [facility] [address] [place] [address] [address] Bubba Espinoza, [address] [place] [address] [address] 10/09/2023 11:15 AM EST Office Visit Dermatology [facility] [place] [address] [place] [address] [address] Lorenzo Hoyt MD 200 [facility] [place] [address] Health Maintenance Due Date Last Done Comments [...] this encounter Medical Devices Implanted Type Area Coffee Roaster Helper Device Identifier Shelf Expiration Date Model / Serial / Lot Clip Quick 2.8mm 230cm - [id number] Implanted:Qty: 1 on 08/19/2022 by Jojo Pearson MD at ENDOSCOPY [facility] Colon [employer] 12/29/2024 [id number]-202UR.[id number] / [id number] documented as of this encounter Visit Diagnoses Diagnosis Chronic atrial fibrillation (HCC) Atrial fibrillation documented in this encounter Advance Directives Documents on File Type Date Recorded Patient Garde Manger Expl anation Advance Directives and Living Will 09/28/2016 LIVING WILL Care Teams Dip Filler Relationship Specialty Start Date End Date Bubba Espinoza DO [address] [place], [place] [address] PCP - General Family Medicine 02/16/17 documented as of this encounter
--- OUTSIDE RECORDS SUMMARY | 2023-10-29 11:55 | External Medical Summary ---
Author Name Unknown Address Unknown Organization K09:[facility] [place] [address] Laboratory Report Ordering Provider Test Date Status VICTORINOPHARMACIST1 07/23/2023 09:18:33 Final Therapeutic ranges for non-o perative patients:
Prophylaxsis/treatment of DVT: (Range:2.0-3.0)
Treatment of pulmonary embolism:(Range:2.0-3.0)
Prevention of systemic embolism from:
-tissue heart valves
-acute myocardial infarction
-valvular heart disease
-atrial fibrillation
(Range: 2.0-3.0)
Mechanical prosthetic valves: (Range: 2.5-3.5) Observation Date Value Abnormality Reference (Units ) Status INR in Capillary blood by Coagulation assay 07/23/2023 09:18:33 1.8 (INR) Final Performing Location [facility] [place] [address]
--- OUTSIDE RECORDS SUMMARY | 2023-10-29 11:55 | External Medical Summary | Summary of Care ---
Author Name Unknown Organization [facility] Address [address] [facility] [place] [address] Phone [phone] Care Team Providers Care Auto Damage Adjuster Name Role Phone Luis Espinoza DO Primary Care Provider [phone] Reason for Visit * Reason Comments Dosage Adjustment In Person (Anticoag Cl inic) Encounter Details Date Type Department Care Team (Latest Contact Info) Description 09/08/2023 2:50 PM [facility] Anticoagulation Pharmacy, [facility] 200 [facility] [address] Pharmacist1, [facility] 200 [facility] [place] [address] Chronic atrial fibrillation (HCC)*; Anticoagulation management encounter; custodial current use of anticoagulant therapy Allergies Active Allergy Reactions Criticality Noted Date [...] 10 MG Oral Tablet (Norvasc)Indications :History of MT (myocardial infarction) Take 1 Tablet by mouth in the morning. 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 cheek - 2015 Hx of BCC on left cheek - 2014 Coronary artery disease invo lving [place] coronary artery of [place] heart without angina pectoris 11/19/2016 History of basal cell carcinoma of skin 05/24/20 15 documented as of this encounter (statuses as of 09/08/2023) Resolved Problems Problem Noted Date Diagnosed Date Resolved Date Chronic kidney disease, stage 3a 11/12/2021 08/13/2022 Overview: Per CKD protocol Prediabetes 12/09/2017 06/02/2018 Overview: Per Prediabetes protocol #1 Chronic atrial fibrillation 11/25/2017 12/01/2018 History of MT (myocardial infarction) 05/23/2017 05/23/2017 Paroxysmal atrial fibrillation 05/24/2015 10/04/2021 Bipolar disorder, in full re mission, most recent episode depressed 05/24/2015 02/12/2023 Atrial fibrillation and flutter 05/24/2015 S/P CABG (coronary artery bypass graft) 05/23/2017 MT (myocardial infarction) 0 05/23/2017 Overview: 3 in [...] as of this encounter Progress Notes * Angie V, Maico, RPh - 09/08/2023 2:57 PM EST Images from the original note were not included. Medication Therapy Disease Management - Anticoagulation [facility] 1940 Patient Findings Negatives: Signs/symptoms of thrombosis, Signs/symptoms of bleeding, Change in health, Change in alcohol use, Change in activity, Upcoming invasive procedure, Missed doses, Extra doses, Change in medications, Change in diet/appetite, Bruising INR Result As of 09/08/2023 INR goal: 2.0-3.0 INR used for dosin.8 (09/08/2023) Warfarin Plan As of 09/08/2023 Full warfarin instructions: 09/08: 4 mg; Otherwise 2 mg every Mon, Wed, Fri; 4 mg all other days Next INR check: 10/20/2023 Repeat PT/INR in 6 week(s) Weekly dose: not changed Maico Adams RPh, CACP, CDE Clinical Pharmacist Medication Therapy Management [facility] 09/08/2023 3:03 PM documented in this encounter Plan of Treatment Upcoming Encounters Date Type Department Care Team (Late st Contact Info) Description 09/23/2023 3:20 PM EST Office Visit Family Practice [facility] [address] [place], [place] [address] Luis Espinoza, DO [address] [facility] [place], [place] [address] 10/09/2023 11:15 AM EST Office Visit Dermatology [facility] [address] [place] [address] [address] Lorenzo Hoyt MD [address] [place] [address] [address] 10/20/2023 9:20 AM EST Anticoagulation Pharmacy, [facility] [address] [place] [address] [address] Pharmacist1, [facility] [address] [place] [place] [address] Health Maintenance Due Date Last Done Comments [...] this encounter Medical Devices Implanted Type Area Radio Frequency Technician Device Identifier Shelf Expiration Date Model / Serial / Lot Clip Quick 2.8mm 230cm - [id number] Implanted:Qty: 1 on 08/19/2022 by Jojo Pearson MD at ENDOSCOPY [facility] Colon [employer] 12/29/2024 HX-202UR.A / / [id number] documented as of this encounter Procedures Procedure Name Priority Date/Time Associated Diagnosis Comments INR FINGERSTICK, POINT OF CARE STAT 09/08/2023 3:00 PM EST Chronic atrial fibrillation (HCC) Anticoagulation management encounter intermediate card tender current use of anticoagulant therapy documented in this encounter Results * INR FINGERSTICK, POINT OF CARE (09/08/2023 3:00 PM EST) Fingerstick INR 1.8 INR 4 3:01 PM EST [facility] 56- Blood 09/08/2023 3:0 0 PM EST 09/08/2023 3:01 PM EST Narrative [facility] 56-02 - 09/08/2023 3:01 PM EST Therapeutic ranges for non-operative patients: Prophylaxsis/treatment of DVT: (Range:2.0-3.0) Treatment of pulmonary embolism:(Range:2.0-3.0) Prevention of systemic embolism from: -tissue heart valves -acute myocardial infarction -valvular heart disease -atrial fibrillation (Range: 2.0-3.0) Mechanical prosthetic valves: (Range: 2.5-3.5) Maico Angie V, RPh LAB POINT OF CARE TE ST DOCKED DEVICE UNSOLICITED RESULTS [facility] [address] [place] [address] documented in this encounter Visit Diagnoses Diagnosis Chronic atrial fibrillation (HCC)- Primary Atrial fibrillation Anticoagulation management encounter Encounter for therapeutic drug monitoring intermediate card tender current use of anticoagulant therapy documented in this encounter Advance Directives Documents on File Type Date Recorded Patient Airbrush Artist Technical Expl anation Advance Directives and Living Will 09/28/2016 LIVING WILL Care Teams Auto Damage Adjuster Relationship Specialty Start Date End Date Luis Espinoza DO 200 [place] [address] PCP - General Family Medicine 02/16/17 documented as of this encounter
[2023-10-29] MEDS ORDERED: SUGAMMADEX SODIUM 200 MG/2 ML VIAL IV ONE (12:18)
[2023-10-29] MEDS: BUPIVACAINE 0.5 % 5 MG/1 ML MPF 30ML VIAL ONE (12:18)
[2023-10-29] MEDS: EPINEPHrine INJ 1 MG/ML AMP ONE (12:19)
[2023-10-29] MEDS ORDERED: ONDANSETRON INJ 2 MG/ML 2 ML VIAL ONE (12:25)
--- NOTE | 2023-10-29 12:43 | Operative Report ---
PG Post Operative Report Pre & Post Diagnosis Operation Date: 10/29/23 07:00 Pre-Op Diagnosis: Acute cholecystitis Post-Op Diagnosis: Acute cholecystitis I identified the patient and participated in the time-out.: Yes Procedure Operation Date: 10/29/23 07:00 Actual Procedures p Laparoscopic Cholecystectomy - Bridget Hayes DO Surgeon Bridget Hayes DO Retail Client Solutions Analyst [place] Gal[place] Estimated Blood Loss 7 Findings See Below Distended gallbladder, pericholecystic fluid/ wall edema Specimens Gallbladder Drains None Anesthesia Type General Complications None Indications Acute cholecystitis Description of Procedure The patient was brought back to the operating room placed on the operating room table in supine position. He was connected to cardiac and oxygen monitoring. Supplemental O2 was administered. SCDs were applied to bilateral lower extremities. The patient was administered general anesthesia and a secure airway was established. The abdomen was prepped and draped in typical sterile fashion and a timeout was conducted. After injecting local anesthetic into the skin and subcutaneous tissue at the supraumbilical location, a stab incision was made with an 11 blade and a Veress needle was used to gain entry abdominal access. Once intra-abdominal access was achieved, pneumoperitoneum was initi ated to local pressure 15 mmHg using CO2. A 5 mm trocar was inserted at this location using direct visualization with the help of a Visiport and 5 mm laparoscope. At the epigastric area local anesthetic was injected into the skin and subcutaneous tissue and an incision was made a large enough to hold a 12 mm trocar. A 12 mm trocar was inserted under direct visualization. 2 additional 5 mm trocars were inserted under the right subcostal margin after injecting local anesthetic in the same fashion under direct visualization. There was no injury noted to any intra-abdominal structures upon the insertion of any of these trocars or the Veress needle. Upon grasping the firmly distended gallbladder, the gallbladder wall became compromised and dark bile expelled from the gallbladder. This was suctioned away. The cystic duct was readily isolated using a [place] dissector. There is excessive pericholecystic edema and edema in the fatty tissue around the cystic triangle. Two 5 mm clips were approximated to the cystic duct proximally and 1 clip distally. The cystic duct was then transected using an endoscopic martinez. The cystic artery was then isolated using cautery. Two 5 mm clips were applied to the cystic artery proximally and 1 distally. The cystic artery was then transected. The gallbladder was then cauterized away from the liver bed leaving a cystic plate. Small areas of mild oozing were controlled using cautery. The gallbladder was placed in an Endo Catch bag and removed. This was sent in a labeled container to pathology for further analysis. The right upper quadrant and was copiously irrigated and suctioned of bile until the fluid became clear. The pelvis was checked and there was some bile that had reached the pelvis. This was also copiously irrigated and suctioned. Once there is no further evidence of bilious fluid remaining in the intra-abdominal space, pneumoperitoneum was evacuated and instruments were removed. Each trocar site was checked for bleeding. Once pneumoperitoneum was completely evacuated, trocars were all completely removed. The fascia at the epigastric incision was reapproximated using 0 Vicryl suture. The subcutaneous and deep dermis tissue at this location was closed with 3-0 Vicryl suture. The cysts are seen in these tissues at each incision site were injected with additional local anesthetic. Dermabond was then used to seal the skin as well as on the remaining incisions. The patient tolerated the procedure well. He was awakened from anesthesia, the secure airway was removed and he was transferred to recovery in stable condition. I attest to the content of the Intraoperative Record and any orders documented therein. Any exceptions are noted below.
[2023-10-29] MEDS: HYDROmorphone INJ 0.5 MG/0.5 ML SYR IV PRN (13:03)
[2023-10-29] MEDS: HYDROmorphone INJ 1 MG/ML SYRINGE IV PRN (13:03)
[2023-10-29] MEDS ORDERED: MoRPHine SULFATE 2 MG/ML CARP IV PRN (13:49)
--- NOTE | 2023-10-29 14:11 | Anesthesiology Progress Note ---
Date of Service October 29, 2023 Anesthesia Post Procedure Vital Signs Vital Signs: Temp Pulse Pulse Pulse Resp BP BP 10/29/23 13:25 73 18 122/92 10/29/23 13:15 36.4 C L 66 20 124/52 L 10/29/23 13:05 67 18 126/61 10/29/23 12:55 68 20 133/74 10/29/23 12:45 61 18 120/64 10/29/23 12:38 36.4 C L 66 16 123/60 10/29/23 10:04 36.9 C 79 18 159/101 H 10/29/23 07:55 66 10/29/23 06:05 36.8 C 72 26 H 140/73 10/29/23 03:12 83 10/29/23 01:32 10/29/23 01:32 37.2 C 88 24 138/89 10/29/23 00:15 79 10/28/23 23:28 88 22 163/97 H 10/28/23 20:26 76 10/28/23 19:18 36.5 C 87 17 171/85 H 10/28/23 19:18 10/28/23 17:50 70 16 155/81 H 10/28/23 16:34 36.9 C 77 19 162/108 H Pulse Ox Pulse Ox O2 Del Method O2 Del Method O2 Flow Rate 10/29/23 13:25 96 Nasal Cannula 2 10/29/23 13:15 96 Nasal Cannula 2 10/29/23 13:05 96 Room Air 10/29/23 12:55 99 Oxymask 4 10/29/23 12:45 97 Oxymask 4 10/29/23 12:38 93 Room Air, Oxymask 6 10/29/23 10:04 96 Room Air 10/29/23 07:55 10/29/23 06:05 93 Room Air 10/29/23 03:12 10/29/23 01:32 95 Room Air 10/29/23 01:32 95 Room Air 10/29/23 00:15 10/28/23 23:28 90 Room Air 10/28/23 20:26 10/28/23 19:18 98 Room Air 10/28/23 19:18 98 Room Air 10/28/23 17:50 99 Room Air 10/28/23 16:34 98 Room Air Pain Intensity Abdomen: Pain Intensity: 4 Right Shoulder: Pain Intensity: 4 Transfer of Care Handoff Completed per policy Notes Mental Status: alert / awake / arousable and participated in evaluation Nausea / Vomiting: adequately controlled Pain: adequately controlled Airway Patency, RR, SpO2: stable & adequate BP & HR: stable & adequate Hydration State: stable & adequate Anesthetic Complications: no major complications apparent and Pt Satisfied with anesthetic care
[2023-10-29] MEDS: LACTATED RINGER'S 1,000 ML IV SCH (14:31)
[2023-10-29] MEDS: oxyCODONE HCL IR 5 MG TAB (IMMEDIATE RELEASE) PO PRN (14:33)
[2023-10-29] MEDS: ROSUVASTATIN CALCIUM 20 MG TAB PO SCH (17:33)
[2023-10-29] MEDS: LATANOPROST 0.005% OP SOLN 2.5 ML BTL OPB SCH (21:52)
[2023-10-30] MEDS: SODIUM CHLORIDE 0.9% 1,000 ML IV SCH (01:32)
[2023-10-30 07:33] LABS: Basophils # (auto) 0.03 K/uL (0.00-0.20); Basophils % (auto) 0.2 %; Eosinophils # (auto) 0.23 K/uL (0.00-0.50); Eosinophils % (auto) 1.7 %; Hematocrit (blood only) 38.5 % (42.0-52.0); Hemoglobin 12.7 g/dl (14.0-18.0); Immature Granulocytes # (auto) 0.12 K/uL (0.01-0.20); Immature Granulocytes % (auto) 0.9 %; Lymphocytes # (auto) 1.03 K/uL (1.20-3.40); Lymphocytes % (auto) 7.8 %; Mean Corpuscular Hemoglobin 30.2 pg (25.0-34.0); Mean Corpuscular Volume 91.4 fL (80.0-100.0); Mean Platelet Volume 10.2 fL (9.4-12.4); Monocytes # (auto) 0.89 K/uL (0.11-0.59); Monocytes % (auto) 6.7 %; Neutrophils # (auto) 10.91 K/uL (1.40-6.50); Neutrophils % (auto) 82.7 %; Platelet Count 337 K/uL (130-400); RDW Coefficient of Variation 14.3 % (11.5-14.5); RDW Standard Deviation 48.1 fL (36.4-46.3); Red Blood Count 4.21 M/uL (4.70-6.10); White Blood Count 13.21 K/ul (4.8-10.8)
[2023-10-30 08:00] LABS: Albumin Globulin Ratio 1.6 (0.9-2); Albumin Level 3.6 gm/dl (3.4-5.0); BUN Creatinine Ratio 12.4 (10-20); Bilirubin,Total 1.2 mg/dl (0.2-1.0); Calcium 8.2 mg/dl (8.6-10.3); Creatinine Clr Calc Pharmacy 28.5 ml/min; Est GFR (African American) 45.5 ml/min; Est GFR (Non-African American) 39.2 ml/min; Globulin 2.2 gm/dl (2.5-4.0); Phosphorus 3.4 mg/dl (2.5-4.9); Potassium 3.9 mmol/L (3.5-5.1); Total Protein 5.8 gm/dl (6.0-8.3)
--- NOTE | 2023-10-30 10:22 | Surgery Progress Note ---
<Statement entered by Bridget Hayes, - 10/31/23 19:32> I saw and examined this patient and agreed with the plan Date of Service October 30, 2023 Assessment & Plan (1) Acute cholecystitis: Plan: POD 1 Lap jarad tolerating clears advanced to heart healthy surgical port sites CDI, dermabond in place +BM and flatus WBC elevated at 13 continue zosyn T. Bili 1.2 (1.3) Continue to trend , if remains elevated may need GI consult Abd pain 09/10 VSS Admission and Anticipated Discharge Date Admission Date: October 28, 2023 Subjective Pt reports feeling well abd pain 09/10 +BMs tolerating clears Review of Systems Constitutional: no fever and no chills Respiratory: no dyspnea Cardiovascular: no chest pain Gastrointestinal: + abdominal pain; no nausea and no vomit ing Integumentary: no rash Physical Exam Physical Exam: alert oriented Constitutional: cooperative and comfortable; no acute distress Respiratory: normal respiratory effort and able to speak in complete sentences; no respiratory distress Cardiovascular: Rate/Rhythm: regular rate Gastrointestinal (Abdomen): Inspection/Auscultation: + abdominal surgical incision (CDI dermabond to port sites ) Percussion/Palpation: abdomen soft Results & Data Vital Signs (Past 12 Hours) Vital Signs Temp Pulse Pulse Resp BP Pulse Ox O2 Del Method 10/30/23 08:26 98.5 F 79 18 132/61 93 Room Air 10/30/23 05:57 73 10/29/23 22:51 99.0 F 89 18 152/74 H 92 Room Air 10/29/23 22:00 84 10/29/23 21:30 Room Air Results Complete Blood Count Results: RBC 4.21 M/uL (4.70-6.10) L 10/30/23 WBC 13.21 K/ul (4.8-10.8) H 10/30/23 Hgb 12.7 g/dl (14.0-18.0) L 10/30/23 Hct 38.5 % (42.0-52.0) L 10/30/23 Plt Count 337 K/uL (130-400) 10/30/23 Results CMP Results: Na 138 mmol/L (136-145) 10/30/23 K 3.9 mmol/L (3.5-5.1) 10/30/23 Cl 105 mmol/L (98-107) 10/30/23 CO2 25 mmol/L (21-32) 10/30/23 Anion Gap 8 (3-11) 10/30/23 BUN 20 mg/dl (6-23) 10/30/23 Creatinine 1.61 mg/dl (0.6-1.4) H 10/30/23 Estimated GFR ( Amer) 45.5 ml/min 10/30/23 Estimated GFR (Non-Af Amer) 39.2 ml/min 10/30/23 BUN/Creatinine Ratio 12.4 (10-20) 10/30/23 Glu 110 mg/dl (70-99(Fasting)) H 10/30/23 Ca 8.2 mg/dl (8.6-10.3) L 10/30/23 Phosphorus Level 3.4 mg/dl (2.5-4.9) 10/30/23 Total Bilirubin 1.2 mg/dl (0.2-1.0) H 10/30/23 Direct Bilirubin 0.1 mg/dl (0-0.2) 08/06/17 AST 40 U/L (13-39) H 10/30/23 ALT 26 U/L (7-52) 10/30/23 Alkaline Phosphatase 73 U/L (34-104) 10/30/23 TP 5.8 gm/dl (6.0-8.3) L 10/30/23 Albumin 3.6 gm/dl (3.4-5.0) 10/30/23 Globulin 2.2 gm/dl (2.5-4.0) L 10/30/23 Albumin/Globulin Ratio 1.6 (0.9-2) 10/30/23 PG Care Time/CCT Total # of Minutes Spent Total Time Spent with Patient: Total time spent is greater than 50% in coordination of care (as documented) at patient's floor/unit and/or counseling patient: Coding Level of Care Code 36994 Post Operative Follow-Up Diagnoses Acute cholecystitis K81.0
--- NOTE | 2023-10-30 13:08 | Hospitalist Progress Note ---
Date of Service October 30, 2023 Assessment & Plan (1) Acute cholecystitis: Plan 83-year-old male with PMH of chronic diastolic heart failure [2022 TTE with 60% EF], CAD status post CABG/stent, A-fib on Coumadin, HTN, HLD, bipolar disorder, past tobacco abuse presented to the ED with 2-day history of right/central abdominal pain associated with constipation. Denies nausea or vomiting. He was also noted to have increased blood pressure in the ED. Outpatient chart reviewed with creatinine range 1.5-2.0 in 2022 and 2023. He is being managed for the following: Acute cholecystitis Patient came in with complaint of abdominal pain, noted to have cholecystitis and cholelithiasis on CTAP and abdominal US. Status post laparoscopic cholecystectomy 10/09/2023. Will resume anticoagulation once bleeding risks deemed minimal per surgery. Currently on antibiotic Zosyn 10/29, possibly will discontinue if surgery agrees. Patient tolerating clears, diet advanced to assess. Will follow. Can DC IV fluid as patient tolerating diet. Hypertensive urgency: Likely secondary to acute stress, continue home blood pressure medication, pain management, as needed blood pressure medications. Now better controlled. Other chronic medical conditions: Continue with/resume home meds as and when able. chronic diastolic failure (EF 60%, TTE 2022), patient euvolemic to dry hx CAD status post CABG A-fib on Coumadin, INR slightly subtherapeutic hyperlipidemia on statin Rx bipolar disorder, stable on regimen past tobacco abuse DVT prophylaxis. SCDs while Coumadin on hold, resume Coumadin once bleeding risks deemed stable per surgery. Full code Disposition: PT/OT, CM to assist with DC planning. Text document was generated using [employer] voice recognition software. It may contain grammatical or spelling errors. Kindly contact undersigned for clarification of any documentation item in question. Admission and Anticipated Discharge Date Admission Date: October 28, 2023 Subjective Patient was seen and examined at bedside. Patient was lying in bed, Resting comfortably, NAD, on room air. Patient reports significant improvement in his abdominal pain, has moved bowel after lap jarad yesterday. Patient denies shortness of breath, chest pain, cough, other ROS. Patient tolerating clears, diet advanced as as per surgery. Physical Exam Physical Exam: GENERAL: Alert and oriented x3. NAD, on RA. HEENT: No pallor, no icterus. Pupils equal, round and reactive to light. Oral mucosa moist. NECK: No JVD, no neck masses. HEART: S1 and S2 heard. irregular rate and rhythm. No murmur, no gallop. RESPIRATORY SYSTEM: Normal AP diameter. No accessory muscle use. No wheezing, no crackles. ABDOMEN: Soft, bowel sounds present, nontender, no distention. Lap jarad sites clean and healthy looking. CENTRAL NERVOUS SYSTEM: No facial droop. Speech is clear. Obeys simple commands. Moves extremities. EXTREMITIES: No edema, no erythema seen. Results & Data Results & Data Vital Signs (Past 12 Hours) Vital Signs Temp Pulse Pulse Resp BP Pulse Ox O2 Del Method 10/30/23 12:39 36.7 C 68 18 122/66 93 Room Air 10/30/23 08:26 36.9 C 79 18 132/61 93 Room Air 10/30/23 05:57 73
[2023-10-31 08:27] LABS: Hemoglobin 13.1 g/dl (14.0-18.0); Mean Corpuscular Hemoglobin 30.7 pg (25.0-34.0); Mean Corpuscular Hgb Conc 33.6 g/dL (32.0-36.0); Mean Corpuscular Volume 91.3 fL (80.0-100.0); Mean Platelet Volume 9.9 fL (9.4-12.4); Platelet Count 311 K/uL (130-400); RDW Coefficient of Variation 14.1 % (11.5-14.5); RDW Standard Deviation 47.7 fL (36.4-46.3); Red Blood Count 4.27 M/uL (4.70-6.10)
[2023-10-31 08:56] LABS: Albumin Globulin Ratio 1.6 (0.9-2); Albumin Level 3.6 gm/dl (3.4-5.0); BUN Creatinine Ratio 12.6 (10-20); Bilirubin,Total 0.8 mg/dl (0.2-1.0); Calcium 8.4 mg/dl (8.6-10.3); Creatinine Clr Calc Pharmacy 26.3 ml/min; Est GFR (African American) 41.4 ml/min; Est GFR (Non-African American) 35.7 ml/min; Globulin 2.3 gm/dl (2.5-4.0); Phosphorus 2.1 mg/dl (2.5-4.9); Potassium 3.8 mmol/L (3.5-5.1); Total Protein 5.9 gm/dl (6.0-8.3)
[2023-10-31] MEDS ORDERED: POTASSIUM PHOS 3 MMOL/1 ML INFUSION IV STA (09:02)
[2023-10-31] MEDS: POTASSIUM PHOSPHATE 15 MMOL in SODIUM CHLORIDE 0.9% 250 ML IV ONE (09:48)
--- NOTE | 2023-10-31 13:41 | Discharge Summary ---
Date of Service October 31, 2023 Admission HPI Per Admitting Provider History obtained from patient and records. Medical history significant for chronic diastolic failure (EF 60%, TTE 2022), CAD status post CABG/stent, A-fib on Coumadin, mild AR, hypertension, hyperlipidemia, bipolar disorder, past tobacco abuse. Last confinement October 2022 for hypertensive urgency. 2 days history of central abdominal pain associated with constipation. No nausea, no vomiting. Constipation not improved with home laxatives. Patient denies headache, chest pain, SOB. Denies black/bloody stools, hematuria. SBP 190s around 9 PM at the ER. 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 Admission Exam Per Admitting Provider GENERAL: Comfortable, pleasant, pallor no respiratory distress SKIN: Normal color, warm HEENT: Alopecia, pale palpebral conjunctivae, no ptosis, dry buccal mucosa NECK : Supple, no tenderness CHEST : CTA, no tenderness HEART : Irregular, no obvious murmurs ABDOMEN: Some distention, no overt tenderness RECTAL : Intact sphincter, yellow brown stool (FOBT negative) EXTREMITIES : No LE swelling/tenderness, no other conspicuous deformities noted NEUROLOGIC : Coherent, no facial asymmetry, no other gross focality Principal Diagnosis laparoscopic cholecystectomy Discharge Exam GENERAL: Alert and oriented x3. NAD, on RA. HEENT: No pallor, no icterus. Pupils equal, round and reactive to light. Oral mucosa moist. NECK: No JVD, no neck masses. HEART: S1 and S2 heard. irregular rate and rhythm. No murmur, no gallop. RESPIRATORY SYSTEM: Normal AP diameter. No accessory muscle use. No wheezing, no crackles. ABDOMEN: Soft, bowel sounds present, nontender, no distention. Lap jarad sites clean and healthy looking/glued. CENTRAL NERVOUS SYSTEM: No facial droop. Speech is clear. Obeys simple commands. Moves extremities. EXTREMITIES: No edema, no erythema seen. Discharge Data Allergies Allergy/AdvReac Type Severity Reaction Status Date / Time pollen extracts Allergy Mild Sneezing Verified 10/28/23 21:36 Consultations 10/28/23 21:27 Consult General Surgery Stat 10/28/23 21:28 ED Decision to Admit Stat Procedures Performed Operation Date: 10/29/23 07:00 Actual Procedures p Laparoscopic Cholecystectomy - Bridget Hayes DO Ordered Studies 10/28/23 16:38 CT abd pelvis IV con only Stat 10/28/23 20:18 US GB [US gallbladder] Stat Hospital Course (1) Acute cholecystitis: Plan 83-year-old male with PMH of chronic diastolic heart failure [2022 TTE with 60% EF], CAD status post CABG/stent, A-fib on Coumadin, HTN, HLD, bipolar disorder, past tobacco abuse presented to the ED with 2-day history of right/central abdominal pain associated with constipation. Denies nausea or vomiting. He was also noted to have increased blood pressure in the ED. Outpatient chart reviewed with creatinine range 1.5-2.0 in 2022 and 2023. He was managed for the following: Acute cholecystitis Patient came in with complaint of abdominal pain, noted to have cholecystitis and cholelithiasis on CTAP and abdominal US. Status post laparoscopic cholecystectomy 10/09/2023. Patient tolerating diet well, moving bowels. Discussed with surgery, no antibiotic needed, can restart Coumadin from November 03. Patient to follow-up with surgery and Coumadin clinic upon discharge. Hypertensive urgency: Likely secondary to acute stress, continue home blood pressure medication, pain management, as needed blood pressure medications. Now better controlled. Other chronic medical conditions: Continue with/resume home meds as and when able. chronic diastolic failure (EF 60%, TTE 2022), patient euvolemic to dry hx CAD status post CABG A-fib on Coumadin, INR slightly subtherapeutic hyperlipidemia on statin Rx bipolar disorder, stable on regimen past tobacco abuse DVT prophylaxis. SCDs while Coumadin on hold, resume Coumadin once bleeding risks deemed stable per surgery. Full code Disposition: PT/OT, CM to assist with DC planning. Patient is being discharged home with following instruction at the point of discharge: Follow-up with your primary care physician within a week time and likely you will need labs CBC/CMP/magnesium/phosphorus. You underwent lap cholecystectomy for acute cholecystitis. Follow-up with your surgery in 2 to 4 weeks time of discharge. You can restart your Coumadin from November 03. Follow-up with your Coumadin clinic in a week time. Take your medications as prescribed. Please make sure that you are able to get your medications today by calling your pharmacy before you leave the hospital so that your treatment continuity is not broken. Text document was generated using [employer] voice recognition software. It may contain grammatical or spelling errors. Kindly contact undersigned for clarification of any documentation item in question. Home Health Attestation I certify that this patient is under my care and that I, or a physicians cosmetic sales assistant working with me, had a face to-face encounter that meets the home health [id number] encounter requirements with this patient. The encounter with the patient was in whole, or in part, for the following medical condition, which is the primary reason for home health care (list medical condition): I certify that, based on my findings, the following services are medically necessary home health services: My clinical findings support the need for the above services because: Further, I certify that my clinical findings support that this patient is homebound (i.e. absences from home require considerable and taxing effort and are for medical reasons or protestant services or infrequently or of short duration when for other reasons) because: Certification for Home Health Services: Based on the above findings, I certify that this patient is confined to the home and needs intermittent long-term care, physical therapy and/or speech therapy or continues to need occupational therapy. The patient is under my care, and I have initiated the establishment of the plan of care. This patient will be followed by a physician who will periodically review the plan of care. Total Time Total Time Spent Total Time Spent (In Minutes): 45 Discharge Plan Discharge Items Patient Disposition: Home - Self-Care Reason For Visit: HTN URG, CHOLECYTITIS Discharge Diagnosis: laparoscopic cholecystectomy Activity: Per Instructions section Lifting: No more than 10 pounds Bathing Comment: may shower; no soaking in tubs/pools x 2 weeks Exercise/Sports: Wait until after follow-up appointment Driving/Machine Use: no driving while taking narcotics for pain Non-emergency contact: Primary Care Provider and Surgeon Call non-emergency contact if: you have any medication questions, you have a fever, your temperature is above 101.5, your wound has increased redness, your wound has increased drainage and your wound pain has increased Follow-up/Referrals: Luis Espinoza DO [Primary Care Provider] - Marin-Ayaan,Kennita L., DO [Physician] - (Please call to schedule follow up in clinic within 2 weeks ) Diet: Heart Healthy Addtl Attending Provider Instructions: You have skin glue over your incisions called dermabond. you may shower with this on. It will tend to dissolve and fall off within a couple weeks. Do not pick at the skin glue You may purchase Tylenol over the counter if needed for additional pain control over the next few days. Take per manufacturers instructions You may resume your Coumadin on November 03Friday. Addtl Automotive Sales Executive Provider Instructions: Follow-up with your primary care physician within a week time and likely you will need labs CBC/CMP/magnesium/phosphorus. You underwent lap cholecystectomy for acute cholecystitis. Follow-up with your surgery in 2 to 4 weeks time of discharge. You can restart your Coumadin from Friday, November 03. Follow-up with your Coumadin clinic in a week time. Take your medications as prescribed. Please make sure that you are able to get your medications today by calling your pharmacy before you leave the hospital so that your treatment continuity is not broken. Pending Studies at Discharge: Yes Studies:: surgical pathology Stand-Alone Forms: My [facility] [employer] 24/7, Smoking Cessation Medications and DC Order Prescriptions: Continued potassium citrate 15 mEq tablet extended release 15 meq PO QAM Qty: 90 3RF cholecalciferol (vitamin D3) 50 mcg (2,000 unit) capsule 50 mcg PO QPM Rx Instructions: with dinner ketoconazole 2 % cream 1 applic topical DAILY Rx Instructions: APPLY TO SCALP( SHAMPOO),AND BEHIND EARS, AND BACK OF NECK, LATHER, WAIT 5 MINUTES, THEN RINSE. latanoprost 0.005 % drops 1 drp OPB HS amlodipine 10 mg tablet 10 mg PO QAM rosuvastatin [Crestor] 40 mg tablet 40 mg PO QPM Rx Instructions: with dinner aspirin 81 mg Tablet,Delayed Release (Dr/Ec) 81 mg PO QAM Qty: 0 0RF timolol maleate 0.5 % Drops 1 drp OPL QAM Rx Instructions: left eye carbamazepine 300 mg capsule, ER multiphase 12 hr 300 mg PO HS loratadine 10 mg Tablet 10 mg PO QAM carvedilol 6.25 mg tablet 6.25 mg PO AMHS lisinopril 20 mg tablet 20 mg PO QAM meclizine 25 mg Tablet 25 mg PO TID PRN (Reason: Dizziness) fluorouracil 0.5 % Cream 1 applic TOPICAL BID Rx Instructions: APPLY TO AffECTED AREA TWO TIMES DAILY. triamcinolone acetonide 0.1 % Cream 1 applic TOPICAL BID PRN (Reason: Skin Irritation) Rx Instructions: APPLY TO AFFECTED AREAS ON BILATERAL LEGS TWICE DAILY , NEEDED. sildenafil 50 mg tablet 50 mg PO .UD PRN (Reason: Sexual Activity) Held warfarin 2 mg tablet 2 mg PO 3XWK Hold Instructions: Resume on 11/04/23. follow up with coumadin clinic Rx Instructions: TAKE 2MG EVERY FRIDAY/FRIDAY/FRIDAY. warfarin 2 mg tablet 4 mg PO 4XWK Hold Instructions: Resume on 11/04/23. follow up with coumadin clinic Rx Instructions: TAKE 4MG EVERY FRIDAY/FRIDAY/FRIDAY/FRIDAY. Discontinued ciprofloxacin HCl 500 mg tablet 500 mg PO BID Rx Instructions: BEGIN 10/22/23 X 5 DAYS. Discharge Orders: Discharge Order (Routine); Ordered 10/31/23 Ordered By: Yas Pro Admission Data Admit Date/Time: 10/28/23 22:37 Attending Provider: Yas Pro Admit Provider: Robert Cabello Primary Care Provider: Luis Espinoza Other Providers: Bridget Hayes; Robert Cabello
== END 2023-10-31 15:28 | disposition home or self-care (01) | DRG 418 ==
LOC: ED 16:30 → EDINP 22:37 → SUATTDRO 22:37 → EDINP 10-29 01:04 → 2N 10-29 13:48 → 3N 10-30 17:31

== ENCOUNTER 2025-01-16 12:00 | Inpatient (IN) ==
--- OUTSIDE RECORDS SUMMARY | 2025-01-16 12:12 | External Medical Summary | Summary of Care ---
Author Name Unknown Organization [facility] Address [address] [place] [address] Phone [phone] Care Team Providers Care Analytical Sciences Director Name Role Phone Alexis Luis Shaye AMADO Primary Care Provider [phone] Reason for Visit * Reason Comments Status Check Encounter Details Date Type Department Care Team (Latest Contact Info) Description 01/14/2025 5:50 PM EDT Anticoagulation Pharmacy, [facility] [address] [facility] [place] [address] Pharmacist1, [facility] [address] [facility] [place] [address] Chronic atrial fibrillation (HCC)* Allergies Active Allergy Reactions Criticality Noted Date Comments Pollen 08/13/2017 Hay fever per patient documented as of this encounter (statuses as of 01/14/2025) Medications aspirin 81 MG chewable tablet mornings Acti ve latanoprost (XALATAN) 0.005 % ophthalmic solution Instill 1 Drop into both eyes at bedtime. 1 drop, left eye only, bedtime Active Vitamin D 50 MCG (1999) Oral Capsule Take 1 Capsule by mouth at bedtime. 1 Active Timolol Hemihydrate 0.5 % Ophthalmic Solution (Betimol) Instill 1 Drop into the left eye in the morning. 2 Active Meclizine HCl 25 MG Oral Tablet (Antivert) Take 1 Tablet by mouth 3 times a day as needed. Active Rosuvastatin Calcium 40 MG Oral Tablet (Crestor)Indicati ons:S/P CABG (coronary artery bypass graft),ST elevation myocardial infarction (STEMI), unspecified artery (HCC) TAKE ONE TABLET BY MOUTH EVERY EVENING WITH dinner 90 Tablet 3 4 Active Carvedilol 6.25 MG Oral Tablet (Coreg) Take 1 Tablet by mouth in the morning and 1 Tablet before bedtime. 180 Tablet 3 4 Active carBAMazepine ER 300 MG Oral Capsule Extended Release 12 Hour (Carbatrol) take 1 CAPSULE by mouth at bedtime 90 Capsule 3 5 Active Omeprazole 40 MG Oral Capsule Delayed Release (PriLOSEC)Indicat ions:Abdominal pain, epigastric Take 1 Capsule by mouth in the morning. 1 hour before the first meal of the day. 40 Capsule 3 5 Active Fluorouracil 5 % External Cream Apply topically to affected area 2 times a day. Apply to forehead. 40 g 1 5 Active triamcinolone 0.1% / cerave 1:1 1:1 TOP cream Apply topically to affected area every 6 hours as needed for Itching (for itchy ankles/legs). Apply to ankles/legs Active Famotidine 20 MG Oral Tablet (Pepcid) Take 1 Tablet by mouth 2 times a day as needed for Heartburn or Other (stomach pain). Active Acetaminophen 325 MG Oral Tablet (Tylenol) Take 1 Tablet by mouth every 6 hours as needed for Other (stomach pain). Active Warfarin Sodium 2 MG Oral Tablet (Coumadin)Indicat ions:Chronic atrial fibrillation (HCC) TAKE 1 TABLET BY MOUTH DAILY FRIDAY, FRIDAY, AY AND 2 TABLETS ALL OTHER DAYS OR DIRECTED BY COAG CLINIC Do not start before December 30, 2024. 132 Tablet 3 5 Active Lisinopril 20 MG Oral Tablet (Prinivil)Indicat ions:S/P CABG (coronary artery bypass graft),ST elevation myocardial infarction (STEMI), unspecified artery (HCC) Take 1 Tablet by mouth 2 times a day with morning and evening meals. 90 Tablet 3 5 Active Polyethylene Glycol 3350 17 GM Oral Packet (Miralax) Take 1 Packet by mouth in the morning. 14 Each 5 Active amLODIPine Besylate 10 MG Oral Tablet (Norvasc)Indicati ons:History of MN (myocardial infarction) TAKE 1 TABLET BY MOUTH EVERY MORNING 90 Tablet 3 5 Active Docusate Sodium 100 MG Oral Capsule (Colace) Take 1 Capsule by mouth in the morning and 1 Capsule before bedtime. Active oxyCODONE HCl 5 MG Oral Tablet (Oxy IR)Indications:Ob structive jaundice,Pancreat ic mass,Need for case management follow-up Take 1-2 Tablets by mouth every 6 hours as needed for Pain, Severe (take 10 mg for pain greater than 7 out of 10.). 80 Tablet 5 Active Ondansetron HCl 4 MG Oral TabletIndications :Obstructive jaundice,Pancreat ic mass,Need for case management follow-up Take 1 Tablet by mouth every 6 hours as needed for Nausea. 30 Tablet 5 Active Morphine Sulfate ER 15 MG Oral Tablet Extended Release (Ms Contin)Indication s:Cancer related pain Take 1 Tablet by mouth in the morning and 1 Tablet before bedtime. 28 Tablet 5 Active documented as of this encounter (statuses as of 01/14/2025) Active Problems Problem Noted Date Diagnosed Date Palliative care encounter 01/03/2025 Goals of care, counseling/discussion 01/03/2025 Elevated lipase 12/25/2024 Obstructive jaundice 12/24/2024 Severe protein-energy malnutrition 12/23/2024 Pancreatic mass 12/22/2024 Stage 3b chronic kidney disease 10/18/2024 Dyslipidemia, goal LDL below 70 06/29/2024 Permanent atrial fibrillation 09/23/2023 Bipolar 1 disorder 02/12/2023 Inguinal hernia of left side without obstruction or gangrene 09/03/2022 HTN, goal below 140/90 09/03/2022 Chronic kidney disease with symptom management only, stage 3 (moderate) 11/12/2021 Overview: Per CKD protocol Chronic atrial fibrillation 02/28/2020 History of MN (myocardial infarction) 05/23/2017 History of nonmelanoma skin cancer 04/22/2017 Overview (04/22/2017): 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 cheek - 2015 Hx of BCC on left cheek - 2014 Coronary artery disease invo [place]ving [place] coronary artery of [place] heart without angina pectoris 11/19/2016 History of basal cell carcinoma of skin 05/24/20 15 documented as of this encounter (statuses as of 01/14/2025) Resolved Problems Problem Noted Date Diagnosed Date Resolved Date SBO (small bowel obstruction) 01/03/2025 01/07/2025 Generalized abdominal pain 01/03/2025 0 01/07/2025 Nausea 01/03/2025 01/07/2025 Anorexia 01/03/2025 01/07/2025 Prediabetes 12/09/2017 06/02/2018 Overview: Per Prediabetes protocol #1 Chronic atrial fibrillation 11/25/2017 12/01/2018 History of MN (myocardial infarction) 05/23/2017 05/23/2017 Paroxysmal atrial fibrillation 05/24/2015 10/04/2021 Bipolar disorder, in full re mission, most recent episode depressed 05/24/2015 02/12/2023 Atrial fibrillation and flutter 05/24/2015 S/P CABG (coronary artery bypass graft) 05/23/2017 MN (myocardial infarction) 0 05/23/2017 Overview (05/24/2015): 3 in 2011 - stents and an ablation done Manic episode 11/19/2016 Bipolar disorder (manic depression) 05/24/2015 documented as of this encounter (statuses as of 01/14/2025) Immunizations Immunization Administration Dates Next Due COVID-19 mRNA, LNP-s, [...] Adjuvanted, 65+ Yrs, IM (FLUAD) 06/27/2021,06/30/2020 Seasonal Influenza Vac., MDV , IM, 0.5 mL (Fluzone) 06/01/2014,06/28/2013,05/05/2010,06/11,08/08/2004 Seasonal Influenza, High Dos e, Trivalent, PF, IM (Fluzone HD) 05/28/2024,05/23/2017 Seasonal Influenza, PF, 6 M & above, IM , (FluLaval or Fluzone) 06/02/2018 Seasonal Influenza, Quadriva lent Hd (Fluzone Hd) 07/05/2022 Seasonal Influenza, Quadriva lent, No Preserve, IM 05/21/2016,06/26/2015 TDAP (age 10 and older)(Boostrix) 12/26/2020 TDAP, Age 7 and older, IM (Adacel) 11/16/2010 Varicella Zoster Vaccine Angel lt (Zostavax) 12/17/2011 Zoster Vaccine Recombinant (Shingrix) 09/30/2018 ,07/10/2018 documented as of this encounter Social History Tobacco Use Types Packs/Day Years Used Date Smoking Tobacco: Former Cigarettes 0.5 3 Smokeless Tobacco: Never Alcohol Use Standard Drinks/Week Comments Not Currently 0 (1 standard drink = 0.6 oz pur e alcohol) PHQ-2 Answer Date Recorded PHQ Adult Total Score 1 12/27/2024 Hunger Vital Sign Answer Date Recorded Within the past 12 months, y ou worried that your food would run out before you got the money to buy more. Never true 12/28/19 25 Within the past 12 months, t he food you bought just didn't last and you didn't have money to get more. Never true 12/27/2024 Childcare Answer Date Recorded Do you feel overwhelmed with taking care of a child, family member or friend? No 12/27/2024 Does your family need help f inding childcare? (Household - for ages 0-17 years) Not on file 12/27/2024 Clothing Answer Date Recorded Have you been unable to get clothing when it was really needed? No 12/27/2024 Is your family able to get c lothes or diapers when needed? (Household - for ages 0-17 years) Not on file 12/27/2024 Personal Safety Answer Date Recorded Do you feel unsafe or have concerns for your saf ety? No 01/03/2025 Do you have concerns for you r family's safety? (Household - for ages 0-17 years) Not on file 01/03/2025 Utilities Answer Date Recorded Do you have trouble paying y our heating, water, or electric bill? No 01/03/2025 Is your family able to pay t he heat, water, or electric bill? (Household - for ages 0-17 years) Not on file 01/03/2025 Does your family have access to good internet? (Household - for ages 0-17 years) Not on file 01/03/2025 Employment Status Answer Date Recorded Are you unemployed or without regular income? No 12/27/2024 Does the household have a re lar source of income? (Household - for ages 0-17 years) Not on file 12/27/2024 Social Connections Answer Date Recorded How often do you feel lonely or isolated from th ose around you? Never 12/27/2024 Financial Resource Strain Answer Date R ecorded Do you have any trouble payi ng for your medications, or do you think you might in the future? No 12/27/2024 Does your family have troubl e paying for medicine? (Household - for ages 0-17 years) Not on file 12/27/2024 Transportation Needs Answer Date Record ed Do you have trouble getting a ride to medical visits or work? (Adult - for ages 18 years and over) Not on file 01/03/2025 Does your family have a hard time getting a ride to doctors visits? (Household - for ages 0-17 years) Not on file 01/03/2025 Has lack of transportation k ept you from medical appointments, meetings, work, or from getting things needed for daily living? Check all that apply. No 01/03/2025 Do you (or your family) have trouble finding or paying for a ride (transportation)? (Household - for ages 0-17 years) Not on file 01/03/2025 Housing Stability Answer Date Recorded Do you currently live in a s helter or have no steady place to sleep at night? No 01/03/2025 Do you think you are at risk of becoming homeless? (Adult - for ages 18 years and over) Not on file 01/03/2025 Does your family worry about paying for your home or becoming homeless? (Household - for ages 0-17 years) Not on file 0 01/03/2025 Are you homeless or worried that you might be in the future? No 01/03/2025 Are you (or your family) chen eless or worried that you might be in the future? (Household - for ages 0-17 years) Not on file Food Insecurity Answer Date Recorded Do you need food for this week? No 11/03/2023 Are you able to get enough f ood for your family? (Household - for ages 0-17 years) Not on file 11/03/2023 Does your family need food t his week? (Household - for ages 0-17 years) Not on file 11/03/2023 Do you always have enough fo od for your family? (Household - for ages 0-17 years) Not on file 11/03/2023 Food Insecurity Answer Date Recorded Within the past 12 months, y ou worried that your food would run out before you got the money to buy more. Never true 01/04/20 25 Within the past 12 months, t he food you bought just didn't last and you didn't have money to get more. Never true 01/03/2025 Do you need food for this week? 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 Answer Date of Assessment Author No 12/22/2024 8:56 PM EDT Nette Miranda, RN * Are you blind or do you have serious difficulty seeing, even when wearing glasses? Answer Date of Assessment Author No 12/22/2024 8:56 PM EDT Nette Miranda RN * Do you have serious difficulty walking or climbing stairs? (5 years old or older) Answer Date of Assessment Author No 12/22/2024 8:56 PM EDT Nette Miranda RN * Because of a physical, mental, or emotional condition, do you have difficulty doing errands alone such as visiting a doctor’s office or shopping? (15 years old or older) Answer Date of Assessment Author No 12/22/2024 8:56 PM EDT Nette Miranda RN documented as of this encounter Mental Status * Because of a physical, mental, or emotional condition, do you have serious difficulty concentrating, remembering, or making decisions? (5 years old or older) Answer Entry Date Author No 12/22/2024 8:56 PM EDT Nette Miranda RN documented in this encounter Progress Notes * [place] RPh - 01/14/2025 10:34 AM EDT Images from the original note were not included. Patient was discharged from [facility] with the following instructions: Called and spoke with patient's spouse. Warfarin resumed. Lab appointment scheduled for Wednesday 01/17as patient will also be in office to see PCP. OFS unable to be completed as no pharmacist availablein clinic that day. [place] PharmD Clinical Pharmacist - Job Putter Up And Ticket Preparer Medication Therapy [facility] 01/14/2025, 10:44 AM documented in this encounter Plan of Treatment Upcoming Encounters Date Type Department Care Team (Late st Contact Info) Description 01/17/2025 10:20 AM EDT Laboratory [facility] [address] [place] [phone] Ovidio Ellsworth [address] [place] [address] 01/17/2025 11:00 AM EDT Office Visit Family Practice [facility] [address] [place] [address] Luis Espinoza, DO [address] [place] [address] 01/25/2025 9:45 AM EDT Imaging Radiology [facility] [address] [place] [phone] 01/26/2025 2:30 PM EDT Office Visit Palliative Medicine [facility] [address] [place] [phone] Fanta Edwards MD [address] [place] [address] 02/01/2025 11:00 AM EDT Office Visit Hematology/Oncology [facility] [address] [place] [phone] Niya Nicole MD [address] [place] [address] 03/10/2025 8:20 AM EDT Office Visit Dermatology [facility] [address] [facility] [place] [place] [address] Kandi Rubalcava PA-C [address] [facility] [place] [place] [address] 03/25/2025 10:20 AM EDT Office Visit Family Practice [facility] [address] [place] [address] Luis Espinoza, [address] [place] [address] 04/06/2025 3:30 PM EDT Office Visit Cardiology, [facility] [address] [place] [phone] Florida Martinez IV, MD [address] [place] [address] 06/29/2025 2:00 PM EDT Office Visit Nephrology, [facility] [address] [facility] [place] [place] [address] Aravind De La O MD [address] [facility] [place] [place] [address] 08/15/2025 9:20 AM EST Office Visit Family Practice [facility] [address] [facility] [place], [place] [address] Luis Espinoza DO [address] [facility] [place], [place] [address] 10/24/2025 11:00 AM EST Office Visit Cardiology, [facility] [address] [place] [address] Heidi Hitchcock PA-C [address] [place] [address] Health Maintenance Due Date Last Done Comments Adult Wellness Visit 10/04/2022 10/04/2021 COVID-19 Vaccine ( season) 2024 02/13/2024, 07/07/2023, 11/15/2022, Additional history exists Zoster Vaccines Completed 09/30/2018, 05/2018, 12/17/2011 Influenza Vaccine (FLU shot) Completed 05/28/2024, 07/30/2023, 07/05/2022, Additional history exists Albumin/Creatinine Ratio Discontinued 06/01/2024, 03/02 EKG Completed 01/03/2025, 12/01, 06/11/2024, Additional history exists Meningitis B Vaccine (Bexsero/Trumemba) Aged Out No longer eligible based on patient's age to complete this topic documented as of this encounter Medical Devices Implanted Type Area Oil Change Technician Device Identifier Shelf Expiration Date Model / Serial / Lot Clip Quick 2.8mm 230cm - [id number] Implanted:Qty: 1 on 08/19/2022 by Jojo Pearson MD at ENDOSCOPY [facility] [employer] 12/29/2024 HX-202UR.A / / 25K Clip Quick 2.8mm 230cm - [id number] Implanted:Qty: 1 on 08/19/2022 by Jojo Pearson MD at ENDOSCOPY [facility] Colon [employer] 12/29/2024 HX-UR.A / / 25K Clip Quick 2.8mm 230cm - [id number] Implanted:Qty: 1 on 08/19/2022 by Jojo Pearson MD at ENDOSCOPY [facility] Colon [employer] 12/29/2024 HX-UR.A / / 25K Clip Quick 2.8mm 230cm - [id number] Implanted:Qty: 1 on 08/19/2022 by Jojo Pearson MD at ENDOSCOPY [facility] Colon [employer] 12/29/2024 HX-UR.A / / 25K Clip Quick 2.8mm 230cm - [id number] Implanted:Qty: 1 on 08/19/2022 by Jojo Pearson MD at ENDOSCOPY [facility] Colon [employer] 12/29/2024 HX-UR.A / / 25K Clip Quick 2.8mm 230cm - [id number] Implanted:Qty: 1 on 08/19/2022 by Jojo Pearson MD at ENDOSCOPY [facility] Colon [employer] 12/29/2024 HX-UR.A / / 25K Stent [employer] [id number] - [id number] Implanted:Qty: 1 on 01/05/2025 by Jay Newman DO at ENDOSCOPY [facility] [employer] : ENDOSCOPY [id number] 09/09/2025 [id number] / / [id number] documented as of this encounter Visit Diagnoses Diagnosis Chronic atrial fibrillation (HCC)- Primary Atrial fibrillation documented in this encounter Advance Directives Documents on File Type Date Recorded Patient Maintenance Coordinator Expl anation Advance Directives and Living Will 09/28/2016 LIVING WILL * Full Code (Latest Code Status on File) Date Activated Date Inactivated Comments 01/03/2025 4:12 AM 01/07/2025 5:59 PM Question Answer Comments Discussion of Advance Direct marie occurred with: Not Discussed due to patient's condition * No Code Date Activated Date Inactivated Comments 12/22/2024 9:00 PM 12/26/2024 7:23 PM This order r eflects the patients wishes and were consensually agreed upon. Question Answer Comments Discussion of Advance Directives occurred with: Patient Does the patient have a Living Will? No Does the patient have Health Care Power of Attor evan? No Healthcare Agents on File Name Relationship Healthcare Agent Relationshi p Communication Jie Mcfarlane Spouse First Alternate Health Care Agent (per Health Care Power of Counseling Center Manager document) [email or web address] Care Teams Analytical Sciences Director Relationship Specialty Start Date End Date Luis Espinoza DO [address] [place] [address] PCP - General Family Medicine 02/16/17 documented as of this encounter
--- NOTE | 2025-01-16 12:13 | Emergency Department Note ---
Impression & Plan Intractable abdominal pain, Sepsis, Leukocytosis, Elevated procalcitonin, Elevated lactic acid level, Elevated troponin, Transaminitis, Elevated lipase ED Provider Note HISTORY OF PRESENT ILLNESS: Patient is an 84-year-old male presenting with abdominal pain. Patient has a history of pancreatic cancer. Patient reportedly is not currently undergoing any active treatment for his cancer. He is scheduled to see hematology later this week. No reported fevers at home. He reportedly woke up today and was having significant worse pain than his normal baseline abdominal pain. He was given 50 mg of morphine, 10 mg of oxycodone and Zofran at home for his symptoms, without any relief in his abdominal pain. He did have some nausea but was feeling improved after the Zofran dosing. Patient is unsure when his last bowel movement is. No reported fevers at home. Patient denies any chest pain or shortness of breath. ROS: as above PHYSICAL EXAM: Constitutional: Patient appears in no acute distress. HENT: Head: Normocephalic and atraumatic. Eyes: EOMI, PERRL Mouth/Throat: Mucous membranes moist. Neck: Trachea midline. Neck supple. Cardiovascular: RRR, No murmurs, rubs or gallops. Intact distal pulses. Pulmonary/Chest: No respiratory distress. Breath sounds clear and equal bilaterally. No wheezes or rales. Abdominal: Abdomen soft, no rebound or guarding. Diffuse TTP Musculoskeletal: No edema, tenderness or deformity noted. Skin: Warm and dry. No rash, erythema, pallor or cyanosis Psychiatric: Appropriate mood and affect for situation. Neurological: Alert and keenly responsive. CN II-XII grossly intact, moving all extremities equally and fully. MDM: - Vitals signs showed hypertension, tachycardia and tachypnea - History obtained via patient and patient's . History as above. - Chronic conditions affecting care: chronic diastolic heart failure; Afib (on Coumadin); HTN; HLD; coronary artery disease (s/p CABG); metastatic pancreatic cancer (mets to lungs) - Differential diagnoses include, but are not limited to: bowel obstruction; bowel perforation; cholecystitis; pneumonia; UTI; electrolyte abnormality - Order placed for continuous cardiac monitoring. At this time, monitor showed rate of 101 bpm with normal sinus rhythm, per my interpretation. - External medical records reviewed. [facility] hematology/oncology note dated 01/10/2025 was reviewed. Patient follows in their clinic for his pancreatic cancer that is metastasized to the lungs. He was referred to palliative care for an evaluation. Palliative care note dated 01/12/2025 was reviewed. Per their documentation, the patient and patient's are hoping that he will get stronger and be able to undergo chemotherapy treatment. Palliative medicine made recommendations in terms of the patient's pain control regimen. - EKG image interpreted by myself showed normal sinus rhythm. Rate 96 bpm. QT 350. No acute ischemic changes. - Laboratory workup interpreted by myself showed leukocytosis (WBC 17.39); thrombocytosis (517); therapeutic INR (2.9 - pt on warfarin); stable electrolytes; elevated anion gap (13); elevated lactic acid (2.2); transaminitis (AST 389; ALT 223); elevated total bilirubin (4.6); elevated troponin (27.5); elevated lipase (239); elevated procalcitonin (1.5) - Blood cultures obtained - Patient given 1.5 L NS. Patient's sepsis fluid volume calculation based on ideal body weight is 1690.8 mL - Given IV zosyn empirically - Given 50 mcg IV fentanyl for pain management - CXR image reviewed myself shows pulmonary vascular congestion, per my interpretation. Radiology notes cardiomegaly with pulmonary vascular congestion. - CT abdomen/pelvis with IV contrast shows similar masslike lesion in the head of the pancreas with significant pancreatic ductal dilatation. Noted to have interval placement of a stent with decompression of the stomach. - On reassessment, patient still complaining of abdominal pain. Given 1 mg IV Dilaudid. - Patient's presents to bedside supplies further history. Reports the patient started complaining of abdominal pain last night. She gave him his prescribed narcotic medication and he was able to sleep. States that this morning the patient was crying out in pain and despite the pain management regimen, he was still complaining of significant pain, prompting her to present to the emergency department. - Will admit patient until blood cultures can result and further pain control - Discussion was had with director case about patient's case and need for admission - Hospitalist consulted for admission - Patient admitted to [facility] service for further evaluation and management. ASSESSMENT AND PLAN: Diagnosis: Intractable abdominal pain; leukocytosis; sepsis; elevated lactic acid level; transaminitis; elevated troponin; elevated lipase; elevated procalcitonin Plan: Admit Past Med/Surg History Problem List (Updated 01/16/25 @ 15:34 by Shellie Arceo MD) Elevated lipase (Acute) Transaminitis (Acute) Elevated troponin (Acute) Elevated lactic acid level (Acute) Elevated procalcitonin (Acute) Leukocytosis (Acute) Sepsis (Acute) Intractable abdominal pain (Acute) Bowel obstruction (Acute) BPH (benign prostatic hyperplasia) (Chronic) Asymptomatic hypertensive urgency Acute cholecystitis (Acute) H/O right inguinal hernia repair (05/29/23) Open Right Inguinal Hernia Repair with Mesh(Right) ; excision of cord lipoma- Kartik Tristan, Encounter for pre-operative examination DVT prophylaxis HTN (hypertension) History of nephrolithiasis Hypertensive urgency Atypical chest pain (Acute) Hypertensive urgency (Acute) A-fib (Acute) Subtherapeutic anticoagulation (Acute) Nephrolithiasis (Acute) Bladder pain Right inguinal pain Right inguinal hernia Incarcerated right inguinal hernia Permanent atrial fibrillation 2011-follows w/ [facility] cardio 12/2022 S/P left inguinal hernia repair (10/18/21) Open Left Inguinal Hernia Repair with Mesh and Excision of Cord Lipoma(Left) - Kartik Tristan, 10/18/2021 Vitamin D deficiency CAD (coronary artery disease) s/p CABG- 3 vessel (1990), PVI + stent (2011) History of SD (myocardial infarction) 1990, 2011x3 (had stent placed twice) Medical History History of Mohs micrographic surgery for skin cancer FOREHEAD 01/2023 History of COVID-19 05/2022, home test, mild symptoms and cough>lasted 3 days>resolved. Inguinal hernia of left side without obstruction or gangrene Bladder outlet obstruction Follows with urology Skin cancer Follows derm History of nephrolithiasis HLD (hyperlipidemia) HTN (hypertension) On anticoagulant therapy Glaucoma Follows with eye doctor Depression Bipolar 1 disorder Surgical History Hx laparoscopic cholecystectomy (10/29/23) Laparoscopic Cholecystectomy - Bridget Hayes DO Hx of left cataract extraction Hx of right cataract extraction History of transurethral resection of prostate 06/14/21 [facility]: MAC. No issues per anesthesia postop progress note. History of colonoscopy History of cardioversion ~2011, [facility]; attempted, not successful "have been in a-fib ever since"; f/u dr galvin, [facility] History of vasectomy History of heart artery stent x 2 (both placed in 2011) History of cardiac cath PVI + stent (2011)-"had 3 minor heart attacks" History of cystoscopy History of coronary artery bypass graft 1990; follows with [facility] S/P appendectomy 1960 Family History Mother Myocardial infarction Father Cancer Multiple Myeloma Social History Smoking Status: Never smoker Tobacco Type: Cigarettes packs per day: 1; Second Hand Exposure: No; Do You Dip or Chew Tobacco: No; Hx Alcohol Use: No Hx Substance Use: No Preferred Language: Thai Communication Ability: Effective Visual Impairment: No Limitations Cullet Crusher Required: No Beliefs That Will Affect Care: None marital status: Current Living Situation: Spouse current occupational status: retired How many Children do You have: 2 Feels Safe at Home: Yes Diet: regular during the past year weight has: remained stable Assistive Devices: Glasses Allergies Allergies Allergy/AdvReac Type Severity Reaction Status Date / Time pollen extracts Allergy Mild Sneezing Verified 01/16/25 14:27 Home Meds Home Medications Medication Instructions Recorded Confirmed amlodipine 10 mg tablet 10 mg PO QAM 02/14/20 01/16/25 latanoprost 0.005 % eye drops 1 drp OPB HS 02/14/20 01/16/25 rosuvastatin 40 mg tablet (Crestor) 40 mg PO QPM 02/14/20 01/16/25 cholecalciferol (vitamin D3) 50 50 mcg PO QPM 08/07/21 01/16/25 mcg (2,000 unit) capsule timolol maleate 0.5 % eye drops 1 drp OPL QAM 08/29/22 01/16/25 carbamazepine 300 mg 300 mg PO HS 10/31/22 01/16/25 capsule,extended release [id number] ketoconazole 2 % topical cream 1 applic topical DAILY 04/08/23 01/16/25 carvedilol 6.25 mg tablet 6.25 mg PO [facility] 10/28/23 01/16/25 lisinopril 20 mg tablet 20 mg PO BID 10/28/23 01/16/25 loratadine 10 mg tablet 10 mg PO QAM 10/28/23 01/16/25 meclizine 25 mg tablet 25 mg PO TID PRN Dizziness 10/28/23 01/16/25 sildenafil 50 mg tablet 50 mg PO DIRECTED PRN Sexual 10/28/23 01/16/25 Activity triamcinolone acetonide 0.1 % 1 applic topical BID PRN Skin 10/28/23 01/16/25 topical cream Irritation warfarin 2 mg tablet See Rx Instructions .Route .COMPLEX 10/28/23 01/16/25 omeprazole 40 mg capsule,delayed 40 mg PO DAILYBB 12/22/24 01/16/25 release morphine 15 mg tablet,extended 15 mg PO BID 01/16/25 01/16/25 release ondansetron HCl 4 mg tablet 4 mg PO Q6H PRN Nausea 01/16/25 01/16/25 Previous Rx's Medication Instructions Recorded aspirin 81 mg tablet,delayed 81 mg PO QAM #0 tabs 02/25/20 release potassium citrate 15 mEq (1,620 15 meq PO QAM #90 tabs 08/18/24 mg) tablet,extended release Results & Data (ED) Vital Signs Vital Signs - 24 hr 01/16/25 12:10 01/16/25 12:18 01/16/25 13:06 Temperature 37.1 C Temperature Source Oral Pulse Rate 99 H 90 94 H Pulse Rate [Apical] Respiratory Rate 17 24 Respiratory Effort / Characteristics Spontaneous Labored Respiratory Depth Normal Respiratory Pattern Regular Blood Pressure 183/97 H Blood Pressure [Right Arm] Blood Pressure Mean 125 Blood Pressure Mean [Right Arm] Pulse Oximetry 96 96 Oxygen Delivery Method Room Air Room Air Sepsis Recent Fever Within 48 Hours No Sepsis New/Unexplained Change in Mental Status No Sepsis Action Taken by Nursing No Action Required 01/16/25 13:06 01/16/25 13:08 01/16/25 14:04 Temperature Temperature Source Pulse Rate Pulse Rate [Apical] 94 H 106 H 90 Respiratory Rate 24 27 H 20 Respiratory Effort / Characteristics Respiratory Depth Respiratory Pattern Blood Pressure Blood Pressure [Right Arm] 172/87 H 172/87 H 171/89 H Blood Pressure Mean Blood Pressure Mean [Right Arm] 115 115 116 Pulse Oximetry 96 96 97 Oxygen Delivery Method Room Air Room Air Room Air Sepsis Recent Fever Within 48 Hours Sepsis New/Unexplained Change in Mental Status Sepsis Action Taken by Nursing 01/16/25 14:23 01/16/25 15:00 01/16/25 15:15 Temperature Temperature Source Pulse Rate 101 H 97 H Pulse Rate [Apical] 96 H Respiratory Rate 23 21 20 Respiratory Effort / Characteristics Respiratory Depth Respiratory Pattern Blood Pressure 99/76 L 126/79 Blood Pressure [Right Arm] 158/88 H Blood Pressure Mean 83 109 Blood Pressure Mean [Right Arm] 111 Pulse Oximetry 91 95 96 Oxygen Delivery Method Room Air Room Air Room Air Sepsis Recent Fever Within 48 Hours Sepsis New/Unexplained Change in Mental Status Sepsis Action Taken by Nursing Laboratory Data 01/16/25 12:09 01/16/25 12:09 Lab Results 01/16/25 01/16/25 Range/Units 12:09 14:21 WBC 17.39 H (4.8-10.8) K/ul RBC 5.23 (4.70-6.10) M/uL Hgb 15.6 (14.0-18.0) g/dl Hct 47.1 (42.0-52.0) % MCV 90.1 (80.0-100.0) fL MCH 29.8 (25.0-34.0) pg MCHC 33.1 (32.0-36.0) g/dL RDW Std Deviation 46.9 H (36.4-46.3) fL RDW Coeff of Bonnie 14.3 (11.5-14.5) % Plt Count 517 H (130-400) K/uL MPV 10.3 (9.4-12.4) fL Immature Gran % (Auto) 1.3 % Neut % (Auto) 88.8 % Lymph % (Auto) 4.0 % [place] % (Auto) 4.9 % Eos % (Auto) 0.5 % Baso % (Auto) 0.5 % Neut # (Auto) 15.45 H (1.40-6.50) K/uL Lymph # (Auto) 0.69 L (1.20-3.40) K/uL [place] # (Auto) 0.85 H (0.11-0.59) K/uL Eos # (Auto) 0.09 (0.00-0.50) K/uL Baso # (Auto) 0.08 (0.00-0.20) K/uL Immature Gran # (Auto) 0.23 H (0.01-0.20) K/uL PT 28.3 H (9.0-12.0) Seconds INR 2.9 H (0.9-1.1) Sodium 138 (136-145) mmol/L Potassium 4.1 (3.5-5.1) mmol/L Chloride 98 (98-107) mmol/L Carbon Dioxide 27 (21-32) mmol/L Anion Gap 13 H (3-11) BUN 21 (6-23) mg/dl Creatinine 1.27 (0.6-1.4) mg/dl Est Cr Clr Drug Dosing 34.4 ml/min eGFR 56.06 BUN/Creatinine Ratio 16.5 (10-20) Glucose 184 H (70-99(Fasting)) mg/dl Lactate 2.2 H* (0.4-2.0) mmol/L Calcium 9.6 (8.6-10.3) mg/dl Magnesium 2.0 (1.7-2.4) mg/dl Total Bilirubin 4.6 H (0.2-1.0) mg/dl AST 389 H (13-39) U/L ALT 223 H (7-52) U/L Alkaline Phosphatase 758 H (34-104) U/L Troponin I High Sens 27.5 H 24.7 H (0-20) pg/ml Total Protein 7.9 (6.0-8.3) gm/dl Albumin 4.0 (3.4-5.0) gm/dl Globulin 3.9 (2.5-4.0) gm/dl Albumin/Globulin Ratio 1.0 (0.9-2) Lipase 239 H (11-82) U/L Procalcitonin 1.15 H (0-0.5) ng/ml Administered Medications Discontinued Medications Fentanyl Citrate (Fentanyl Citrate Pf 100 Mcg/2 Ml Vial) 50 mcg IV NOW STA Stop: 01/16/25 12:11 Last Admin: 01/16/25 12:20 Dose: 50 mcg Documented By: [facility] Sodium Chloride (Nss) 500 mls @ 999 mls/hr IV .Q31M EMELIA Stop: 01/16/25 13:15 Last Admin: 01/16/25 14:08 Dose: 999 mls/hr Documented By: PILAR Sodium Chloride (Nss) 1,000 mls @ 999 mls/hr IV .Q1H1M EMELIA Stop: 01/16/25 13:45 Last Infusion: 01/16/25 14:07 Dose: Infused Documented By: Admin: 01/16/25 13:02 Dose: 999 mls/hr Documented By: PILAR Piperacillin Sod/Tazobactam Sod (Zosyn) 4.5 gm in 100 mls @ 200 mls/hr IV NOW ONE; Protocol Stop: 01/16/25 13:08 Last Infusion: 01/16/25 13:44 Dose: Infused Documented By: Admin: 01/16/25 13:01 Dose: 200 mls/hr Documented By: PILAR Ioversol (Optiray 320 100ml) 92 ml IV ONCE ONE Stop: 01/16/25 13:43 Last Admin: 01/16/25 13:42 Dose: 92 ml Documented By: AIRAM Imaging Data Radiologist's Impression: Abdomen/Pelvis CT 01/16/25 12:28 EXAMINATION: CT of the abdomen and pelvis performed after the administration of IV contrast TECHNIQUE: Helical CT images from the lung bases through the symphysis pubis were obtained with contrast. Coronal and sagittal reformatted images were generated at a workstation for further assessment. Dose reduction techniques were achieved by using automatic exposure control and/or adjustment of mA and/or kV according to patient size and/or use of iterative reconstruction technique. COMPARISON: January 02, 2025 HISTORY: Abdominal pain FINDINGS: Lower chest: No consolidation. No pleural effusion or pneumothorax. Right basilar subsegmental atelectasis. Findings of significant cardiomegaly, with large mid of the right and left atria partially seen. Liver: No suspicious liver lesions. Portal veins appear patent. Diffuse prominent intrahepatic biliary ductal dilatation. Left lobe pneumobilia. A common bile duct stent is in place. Thickening and enhancement of the CBD wall, especially above the level of the stent. Gallbladder: Surgically absent Spleen: Normal size. Pancreas: A necrotic rim-enhancing mass is seen in the head of the pancreas anterior to the biliary stent, similar in size from prior, in the axial plane measuring 28 x 22 mm, series 3 image 130. An area of significant masslike density, anterior to the pancreas on image 147 is also seen, measuring 4.8 x 2.6 cm, also not significantly changed. Adrenal glands: No adrenal nodules. Kidneys: No hydronephrosis or obstructing renal stones. Several small cysts. Bladder / Pelvic organs: Unremarkable. Bowel: No bowel obstruction. No abnormal bowel wall thickening. The appendix is not seen. Several fluid-filled loops of nondilated small bowel suggestive of enteritis. Interval placement of a gastrojejunal stent, with decompression of the stomach which remains mildly distended and fluid-filled. There is a small hiatal hernia. There is prominent wall thickening circumferentially of the lower esophagus suggesting esophagitis. Lymph nodes: Mildly prominent, shotty appearing aortocaval lymph nodes, are not significantly changed, either reactive or metastatic. Peritoneum / Retroperitoneum: No free fluid or air within the abdomen. Vessels: No infrarenal aortic aneurysm. Heavy aortoiliac calcification.The mass is seen to occlude the SMV, with numerous collaterals seen throughout the mesentery. There is near complete circumferential contact of the SMA. Bones and soft tissues: No suspicious lesion in the bones. IMPRESSION: 1. Similar size of the masslike lesions seen throughout the head of the pancreas. Significant pancreatic ductal dilatation. The mass is seen to occlude the SMV, with numerous collaterals throughout the mesentery. There is near complete circumferential contact of the SMA. 2. Interval placement of a gastrojejunal stent, with interval decompression of the stomach. 3. Scattered aortocaval mildly prominent lymph nodes, are not significantly changed, either reactive or metastatic. Electronically signed by Jeison Whipple 01-16-2025 2:23 PM Chest X-Ray 01/16/25 12:37 XR chest 1V portable HISTORY: 84 years-old Male Sepsis COMPARISON: 10/28/2023 TECHNIQUE: AP view of the chest FINDINGS: Cardiac silhouette is enlarged. Median sternotomy with mediastinal surgical clips. Pulmonary vascular congestion. No pneumothorax, pleural effusion or overt pulmonary edema. Chronic interstitial coarsening. Unchanged right paratracheal opacity, likely secondary to summation density. Degenerative changes of the shoulders and spine. IMPRESSION: Cardiomegaly with pulmonary vascular congestion. ACT 112: Negative or not required by law. The above report was generated using voice recognition software. It may contain grammatical, syntax or spelling errors. Electronically signed by: Kapil Hernandez M.D. 01/16/2025 1:43 PM Discharge Plan Visit Data Chief Complaint: Abdominal Pain Stated Complaint: AB PAIN ED Provider: Shellie Arceo Discharge Problem: Intractable abdominal pain, Sepsis, Leukocytosis, Elevated procalcitonin, Elevated lactic acid level, Elevated troponin, Transaminitis, Elevated lipase Condition: Serious Forms Stand Alone Forms: [facility] [employer] [place] [employer] Prescriptions Prescriptions: No Action potassium citrate 15 mEq tablet extended release 15 meq PO QAM Qty: 90 3RF Rx Instructions: Unable to verify this medication at this date/time. cholecalciferol (vitamin D3) 50 mcg (2,000 unit) capsule 50 mcg PO QPM Rx Instructions: with dinner ketoconazole 2 % cream 1 applic topical DAILY Rx Instructions: APPLY TO SCALP( SHAMPOO),AND BEHIND EARS, AND BACK OF NECK, LATHER, WAIT 5 MINUTES, THEN RINSE. latanoprost 0.005 % drops 1 drp OPB HS amlodipine 10 mg tablet 10 mg PO QAM rosuvastatin [Crestor] 40 mg tablet 40 mg PO QPM Rx Instructions: with dinner aspirin 81 mg Tablet,Delayed Release (Dr/Ec) 81 mg PO QAM Qty: 0 0RF timolol maleate 0.5 % Drops 1 drp OPL QAM Rx Instructions: left eye carbamazepine 300 mg capsule, ER multiphase 12 hr 300 mg PO HS loratadine 10 mg Tablet 10 mg PO QAM carvedilol 6.25 mg tablet 6.25 mg PO [facility] lisinopril 20 mg tablet 20 mg PO BID warfarin 2 mg tablet See Rx Instructions .ROUTE .COMPLEX Hold Instructions: Resume on 11/04/23. follow up with coumadin clinic Rx Instructions: TAKE 2MG EVERY FRIDAY/FRIDAY/FRIDAY. And 4mg all other days in the evening meclizine 25 mg Tablet 25 mg PO TID PRN (Reason: Dizziness) triamcinolone acetonide 0.1 % Cream 1 applic TOPICAL BID PRN (Reason: Skin Irritation) Rx Instructions: APPLY TO AFFECTED AREAS ON BILATERAL LEGS TWICE DAILY , NEEDED. sildenafil 50 mg tablet 50 mg PO DIRECTED PRN (Reason: Sexual Activity) omeprazole 40 mg capsule,delayed release(DR/EC) 40 mg PO DAILYBB ondansetron HCl 4 mg tablet 4 mg PO Q6H PRN (Reason: Nausea) morphine 15 mg tablet extended release 15 mg PO BID Referrals Referrals: Luis Espinoza DO [Primary Care Provider] -
--- OUTSIDE RECORDS SUMMARY | 2025-01-16 12:13 | External Medical Summary | Summary of Care ---
Author Name Unknown Organization [facility] Address [address] [place] [address] Phone [phone] Care Team Providers Care Designated Broker Name Role Phone EhsanLuis acuña Shaye AMADO Primary Care Provider Reason for Visit * Reason Comments NEW PATIENT Encounter Details Date Type Department Care Team (Late st Contact Info) Description 01/12/2025 10:00 AM EDT Office Visit Palliative Medicine [facility] [address] [place] [address] Fanta Edwards MD [address] [place] [id number] Cancer related pain*; Palliative care encounter; Goals of care, counseling/discussion ; Pancreatic mass; Severe protein-energy malnutrition (HCC) Allergies Active Allergy Reactions Criticality Noted Date Comments Pollen 08/13/2017 Hay fever per patient documented as of this encounter (statuses as of 01/12/2025) Medications aspirin 81 MG chewable tablet mornings Acti ve latanoprost (XALATAN) 0.005 % ophthalmic solution Instill 1 Drop into both eyes at bedtime. 1 drop, left eye only, bedtime Active Vitamin D 50 MCG (1999 UT) Oral Capsule Take 1 Capsule by mouth at bedtime. 10/09/19 21 Active Timolol Hemihydrate 0.5 % Ophthalmic Solution (Betimol) Instill 1 Drop into the left eye in the morning. 06/11/20 22 Active Meclizine HCl 25 MG Oral Tablet (Antivert) Take 1 Tablet by mouth 3 times a day as needed. Active Rosuvastatin Calcium 40 MG Oral Tablet (Crestor)Indicat ions:S/P CABG (coronary artery bypass graft),ST elevation myocardial infarction (STEMI), unspecified artery (HCC) TAKE ONE TABLET BY MOUTH EVERY EVENING WITH dinner 90 Tablet 3 02/28/20 24 Active Carvedilol 6.25 MG Oral Tablet (Coreg) Take 1 Tablet by mouth in the morning and 1 Tablet before bedtime. 180 Tablet 3 07/28/20 24 Active carBAMazepine ER 300 MG Oral Capsule Extended Release 12 Hour (Carbatrol) take 1 CAPSULE by mouth at bedtime 90 Capsule 3 10/06/19 25 Active Omeprazole 40 MG Oral Capsule Delayed Release (PriLOSEC)Indica tions:Abdominal pain, epigastric Take 1 Capsule by mouth in the morning. 1 hour before the first meal of the day. 40 Capsule 3 11/27/19 25 Active Fluorouracil 5 % External Cream Apply topically to affected area 2 times a day. Apply to forehead. 40 g 1 12/22/19 25 Active triamcinolone 0.1% / cerave 1:1 1:1 [...] Active Warfarin Sodium 2 MG Oral Tablet (Coumadin)Indica tions:Chronic atrial fibrillation (HCC) TAKE 1 TABLET BY MOUTH DAILY FRIDAY, FRIDAY,Fri AND 2 TABLETS ALL OTHER DAYS OR DIRECTED BY COAG CLINIC Do not start before December 30, 2024. 132 Tablet 3 12/31/19 25 Active Lisinopril 20 MG Oral Tablet (Prinivil)Indica tions:S/P CABG (coronary artery bypass graft),ST elevation myocardial infarction (STEMI), unspecified artery (HCC) Take 1 Tablet by mouth 2 times a day with morning and evening meals. 90 Tablet 3 12/27/19 25 Active Polyethylene Glycol 3350 17 GM Oral Packet (Miralax) Take 1 Packet by mouth in the morning. 14 Each 12/28/19 25 Active amLODIPine Besylate 10 MG Oral Tablet (Norvasc)Indicat ions:History of MO (myocardial infarction) TAKE 1 TABLET BY MOUTH EVERY MORNING 90 Tablet 3 12/28/19 25 Active Docusate Sodium 100 MG Oral Capsule (Colace) Take 1 Capsule by mouth in the morning and 1 Capsule before bedtime. Active oxyCODONE HCl 5 MG Oral Tablet (Oxy IR)Indications:O bstructive jaundice,Pancrea tic mass,Need for case management follow-up Take 1-2 Tablets by mouth every 6 hours as needed for Pain, Severe (take 10 mg for pain greater than 7 out of 10.). 80 Tablet 01/01/20 25 Active Ondansetron HCl 4 MG Oral TabletIndication s:Obstructive jaundice,Pancrea tic mass,Need for case management follow-up Take 1 Tablet by mouth every 6 hours as needed for Nausea. 30 Tablet 01/01/20 25 Active Morphine Sulfate ER 15 MG Oral Tablet Extended Release (Ms Contin)Indicatio ns:Cancer related pain Take 1 Tablet by mouth in the morning and 1 Tablet before bedtime. 28 Tablet 01/13/20 25 Active traMADol HCl 50 MG Oral Tablet (Ultram) Take 1 Tablet by mouth every 6 hours as needed for Pain, Moderate or Pain, Severe. 20 Tablet 12/27/19 25 025 Discontinued documented as of this encounter (statuses as of 01/12/2025) Active Problems Problem Noted Date Diagnosed Date [...] protocol Chronic atrial fibrillation 02/28/2020 History of MO (myocardial infarction) 05/23/2017 History of nonmelanoma skin cancer 04/22/2017 Overview (04/22/2017): 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 cheek - 2015 Hx of BCC on left cheek - 2014 Coronary artery disease invo lving [facility] coronary artery of 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 Not on file Not on file documented as of this encounter Last Filed Vital Signs Vital Sign Reading Time Taken Comments Blood Pressure 92/53 01/12/2025 10:06 AM EDT Pulse 65 01/12/2025 10:06 AM EDT Temperature 36.4 °C (97.5 °F) 01/12/2025 10:06 AM E DT Respiratory Rate - - Oxygen Saturation 97% 01/12/2025 10:06 AM EDT Inhaled Oxygen Concentration - - Weight 52.8 kg (116 lb 4.8 oz) 01/12/2025 10:06 AM EDT Height 162.6 cm (5' 4") 01/12/2025 10:06 AM EDT Body Mass Index 19.96 01/12/2025 10:06 AM EDT documented in this encounter Functional Status * Are you deaf or do you have serious difficulty hearing? Answer Date of Assessment Author No 12/22/2024 8:56 PM EDT Nette Miranda RN * Are you blind or do [...] Nette Miranda RN documented in this encounter Patient Instructions * Patient Instructions* Fanta Edwards MD - 01/12/2025 10:29 AM EDT Our Palliative Medicine Clinic is available Friday through Friday during business hours, so we are unavailable on weekends and holidays. Please ensure that you request refills early in the week as itmay take 1-2 days for them to be addressed and filled, for authorizations to be approved, or for the pharmacy to order them if needed. You can contact our office at [phone], which is our clinic in [place], or you can message us on [employer]. If you have an emergency outside of these hours, we recommend calling your primary care clinic, Oncology office, or going to the ER if you have a medical emergency. Try calling [employer] Review the POLST form with your kids and we can discuss at next visit documented in this encounter Progress Notes * Fanta Edwards MD - 01/12/2025 9:54 AM EDT Images from the original note were not included. Palliative Medicine Outpatient Consult Note [facility] Palliative Medicine Outreach [address] [place] [address] Name: Andrade Mcfarlane Date: 01/12/2025 Referring Provider: Reason for Consult: Goals of care; Pain and symptom management Patient accompanied by , history obtained from patient and . HPI: Andrade Mcfarlane is a 84 year old male with a primary diagnosis of pancreatic mass, which recently caused small bowel obstruction and led to a hospitalization. He had been dealing with weight lossand obstructive jaundice, was ultimately admitted and had a stent placed in [facility]. He is not a surgical candidate. Saw Dr Nicole on 01/10 and they discussed chemotherapy, but plan is to review in 2 weeksand see if he wants to pursue treatment. Referred to palliative care for goals of care. Met w/pt and today, he did not say much in our conversation. Reviewed 3 pathways of care, he is clear he is in the middle. Wants to see if he can get stronger and then consider treatment. Is currently walking around the house mostly, getting intermittent pain and using Oxycodone 10mg about 4x/day. Palliative symptoms: Pain: OK Located at: lower abdomen, taking oxycodone 10 q4h routinely, wakes him up to take it. Nausea/Vomiting: no Appetite: OK per pt, eating crackers in AM, lunch has been skipping, dinner havnig a soft diet Constipation: yes Confusion: No but during conversation did not fully follow along. 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 Eyes: anicteric, sclera and conjunctiva normal. Neck: no stridor Chest: normal respiratory effort Abdominal: nondistended Extremities: no edema Neuro: alert, oriented to person, place, and time Psych: normal mood and flat affect Data Review: External notes reviewed: - Reviewed notes from Cherise Perry PA-C, pt was DC with Oxycodone 10mg q6h PRN pain - Reviewed notes from Dr Nicole, on 01/10, plan to review tx and see what he wants to do in 2 weeks Lab / Imaging Results: Cr 1.0, normal, on 01/07/25 Information obtained from for collateral history Decision-making Capacity: Does Patient have Decisional Capacity? y Does Patient have a Healthcare Agent? Y, and sons Discussion with Patient & Family: Met with patient and Introduced role of Outpatient Palliative Medicine team and reviewed symptoms as above. Reviewed patient's/family's understanding of current medical situation. They know he has cancer andplan is to see if he will get stronger. I brought up the option of doing tx vs not doing tx, and how he could remain comfortable and have agood quality of life. says they are not at that stage yet. Discussed ACP as below Advanced Care Planning: Reviewed 3 pathways and POLST, he says he is in the Limited pathway They wanted to take POLST home to review, I placed dots next to the options we discussed ASSESSMENT/PLAN: Andrade Mcfarlane is a/an 84 year old male referred for consultation to Palliative Medicine with the primary diagnosis of: Pancreatic cancer, stage IV Mets to lung Severe protein calorie malnutrition, about 20lb weight loss recently ?Depression, on carbamazepine ER Cancer related pain, on Oxycodone 10mg q4h scheduled Goals of care - will see if he gets stronger Recommendations: At this time, they will see if he gets stronger and possibly consider tx. We are happy to follow along. For pain, will add MS Contin 15mg BID for longer acting relief. For breakthrough pain, continue Oxycodone 10mg q4h PRN pain. I have reviewed the patient’s controlled substance dispensing history in the Prescription Drug Monitoring Program in compliance with the [facility] regulations before prescribing a controlled substance. For bowels, use Miralax or Senna Offered HH referral, they declined. Has an OP case mx. Will review POLST at next visit. Follow up in 3-4 weeks. Pt is possibly able to do video visits. Next visit with me. Thank you for this consult. We appreciate the opportunity to take part in the care of your patient. Note routed back to referring provider and PCP Luis Espinoza, Will bill as return since was seen in our dept in [facility] I spent a total of 45 minutes on the date of service in preparation, delivery, and documentation ofthe care provided to Andrade Mcfarlane excluding any time spent in the performance of separately billed services. Fanta Edwards MD [facility] Palliative Medicine [phone] documented in this encounter Nursing Notes * Evonne Felder, MED ASSIST - 01/12/2025 10:07 AM EDT Patient identifed by name and birthdate Do you have any concerns about pain management for today's visit? Yes. Patient instructed to discuss pain concerns with provider during the visit today Living Will or Advance Directive for Health Care as noted on the problem list. [employer] [facility] is a way you can talk to your provider on line through e-mail. Would you like to sign up? I can activate it for you? ALREADY ACTIVE Filed Vitals: 01/12/25 1006 BP: 92/53 Pulse: 65 Temp: 36.4 °C (97.5 °F) TempSrc: Tympanic SpO2: 97% Weight: 52.8 kg (116 lb 4.8 oz) Height: 1.626 m (5' 4") Patient was instructed to not get up on the exam table/exam chair until directed and assisted by their provider; patient is to remain seated in the chair/ wheelchair/ exam table/ exam chair for fall prevention and safety reasons. Patient is aware to have assistance to step down off exam table/exam chair with personnel. Patient voiced full comprehension of instructions. documented in this encounter Plan of Treatment Upcoming Encounters Date Type Department Care Team (Late st Contact Info) Description 01/14/2025 5:50 PM EDT Anticoagulation Pharmacy, [facility] [address] [place] [address] Pharmacist1, [facility] [address] [place] [address] 01/17/2025 11:00 AM EDT Office Visit Family Practice [facility] [address] [place] [address] Luis Espinoza, DO [address] [place] [address] [address] 01/25/2025 9:45 AM EDT Imaging Radiology [address], [place] [address] [place] [phone] 01/26/2025 2:30 PM EDT Office Visit Palliative Medicine [facility] [address] [place] [address] Fanta Edwards MD [address] [place] [address] 02/01/2025 11:00 AM EDT Office Visit Hematology/Oncology [facility] [address] [place] [phone] Niya Nicole MD [address] [place] [address] 03/10/2025 8:20 AM EDT Office Visit Dermatology [facility] [address] [place] [address] Kandi Rubalcava PA-C [address] [place] [address] 03/25/2025 10:20 AM EDT Office Visit [facility] [address] [place] [address] Luis Espinoza, [address] [place], [place] [address] 04/06/2025 3:30 PM EDT Office Visit Cardiology, [facility] [address] [place] [phone] Florida Martinez IV, MD [address] [place] [address] 06/29/2025 2:00 PM EDT Office Visit Nephrology, [facility] [address] [place], [place] [address] Aravind De La O MD [address] [place] [address] 08/15/2025 9:20 AM EST Office Visit [facility] [address] [employer], [place] [address] Luis Espinoza, [address] [place], [place] [address] 10/24/2025 11:00 AM EST Office Visit Cardiology, [facility] [address] [place] [phone] Heidi Hitchcock PA-C [address] [place] [address] Health Maintenance Due Date Last Done Comments [...] this encounter Medical Devices Implanted Type Area Facilities And Grounds Director Device Identifier Shelf Expiration Date Model / Serial / Lot Clip Quick 2.8mm 230cm - [id number] Implanted:Qty: 1 on 08/19/2022 by Jojo Pearson MD at [facility]OS[facility] [employer] 12/29/2024 HX-202UR.A / / 25K Clip Quick 2.8mm 230cm - [id number] Implanted:Qty: 1 on 08/19/2022 by Jojo Pearson MD at [facility] [employer] 12/29/2024 HX-202UR.A / / 25K Clip Quick 2.8mm 230cm - [id number] Implanted:Qty: 1 on 08/19/2022 by Jojo Pearson MD at ENDOSCOPY [facility] [employer] 12/29/2024 HX-202UR.A / / 25K Clip Quick 2.8mm 230cm - [id number] Implanted:Qty: 1 on 08/19/2022 by Jojo Pearson MD at ENDOSCOPY [facility] [employer] 12/29/2024 HX-202UR.A / / 25K Clip Quick 2.8mm 230cm - [id number] Implanted:Qty: 1 on 08/19/2022 by Jojo Pearson MD at ENDOSCOPY [facility] [employer] 12/29/2024 HX-202UR.A / / 25K Clip Quick 2.8mm 230cm - [id number] Implanted:Qty: 1 on 08/19/2022 by Jojo Pearson MD at ENDOSCOPY [facility] [employer] 12/29/2024 HX-UR.A / / 25K Stent [employer] [id number] - [id number] Implanted:Qty: 1 on 01/05/2025 by Jay Newman DO at ENDOSCOPY [facility] [employer] : ENDOSCOPY [id number] 09/09/2025 [id number] / / [id number] documented as of this encounter Visit Diagnoses Diagnosis Cancer related pain- Primary Neoplasm related pain (acute) (chronic) Palliative care encounter Encounter for palliative care Goals of care, counseling/discussion Other specified counseling Pancreatic mass Unspecified disease of pancreas Severe protein-energy malnutrition (HCC) Other severe protein-calorie malnutrition documented in this encounter Advance Directives Documents on File Type Date 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
--- OUTSIDE RECORDS SUMMARY | 2025-01-16 12:13 | External Medical Summary | Summary of Care ---
Author Name Unknown Organization [facility] Address [address] [place] [address] Phone [phone] Care Team Providers Care Loan Processor Name Role Phone Luis Espinoza DO Primary Care Provider [phone] Reason for Referral * Evaluate & Treat - Unlimited Visits (Within 10 days (routine)) - Authorized Specialty Diagnoses / Procedures Referred By Gayathri rios Referred To Contact Hematology/Oncology / Hematology Oncology Diagnoses Malignant neoplasm of head of pancreas (HCC) Sylvia Horta DO [address] [place] [address] Phone: tel: fax: Referral ID Status Reason Start Date Expiration Date Visits Requested Visits Authorized [id number] Authorized Specialty Services Required 12/31/2024 999 [id number] Question Answer Referral Priority Within 10 days (routine) Where should this appointment be scheduled? [facility] Reason for Referral Malignant Oncology (Solid Organ Cancer) Comments Patient with a recently identified pancreatic head mass, biopsies most consistent with adenocarcinoma. * Evaluate & Treat - Unlimited Visits (Within 10 days (routine)) - Authorized Specialty Diagnoses / Procedures Referred By Gayathri rios Referred To Contact SURGICAL ONCOLOGY / Surgical Oncology Diagnoses Malignant neoplasm of head of pancreas (HCC) Sylvia Horta DO [address] [place] [address] Phone: tel: fax: Referral ID Status Reason Start Date Expiration Date Visits Requested Visits Authorized [id number] Authorized Specialty Services Required 12/31/2024 999 [id number] Question Answer Referral Priority Within 10 days (routine) Where should this appointment be scheduled? [facility] Comments Patient with a recently identified pancreatic mass evaluation for surgical resection. The mass is quite large and not likely resectable Reason for Visit * Reason Onset Date Comments Test Results 12/31/2024 Encounter Details Date Type Department Care Team (Late st Contact Info) Description 12/31/2024 Telephone ENDO INTRA [facility], Intraoperative Unit [address] [place] [id number] Sylvia Horta DO [address] [place] [id number] Test Results Allergies Active Allergy Reactions Criticality Noted Date Comments Pollen 08/13/2017 Hay fever per patient documented as of this encounter (statuses as of 01/10/2025) Medications aspirin 81 MG chewable tablet mornings [...] as needed for Other (stomach pain). Active traMADol HCl 50 MG Oral Tablet (Ultram) Take 1 Tablet by mouth every 6 hours as needed for Pain, Moderate or Pain, Severe. 20 Tablet 12/27/19 25 Active Warfarin Sodium 2 MG Oral Tablet [...] 10 MG Oral Tablet (Norvasc)Indicat ions:History of TN (myocardial infarction) TAKE 1 TABLET BY MOUTH [...] for Nausea. 30 Tablet 01/01/20 25 Active Amoxicillin-Pot Clavulanate 875-125 MG Oral Tablet (Augmentin) Take 1 Tablet by mouth in the morning and 1 Tablet before bedtime. Do all this for 6 days. 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 cheek - 2015 Hx of BCC on left cheek - 2014 Coronary artery disease invo lving [place] coronary artery of [place] heart without angina pectoris 11/19/2016 History of basal cell carcinoma of skin 05/24/20 15 documented as of this encounter (statuses as of 01/10/2025) Resolved Problems Problem Noted Date Diagnosed Date [...] graft) 05/23/2017 TN (myocardial infarction) 0 05/23/2017 Overview (05/24/2015): 3 in 2011 - 3 stents and an ablation done Manic episode 11/19/2016 Bipolar disorder (manic depression) 05/24/2015 documented as of this encounter (statuses as of 01/10/2025) Immunizations Name Administration Dates Next Due COVID-19 [...] Industry Job Start Date Job End Date [employer] Not on file Not on file Not [...] 8:56 PM EDT Nette Miranda, RN * Do you have serious difficulty walking or climbing stairs? (5 years old or older) Answer Date of Assessment Author No 12/22/2024 8:56 PM EDNette Mcwilliams RN * Because of a physical, mental, [...] Nette Miranda RN documented in this encounter Miscellaneous Notes * Telephone Encounter - Corona Bowling RN - 01/10/2025 7:31 AM EDT Pt discharged from hospital. Message sent to scheduling to call patient to offer earlier consult with provider. Message was left on 01/07. * Telephone Encounter - Alma Smith RN - 01/03/2025 1:01 PM EDT Patient admitted in [place]. * Telephone Encounter - Sylvia Horta DO - 01/03/2025 12:05 PM EDT I believe the patient will need to see Medical Oncology as well. Can we help attain an appointment with them * Telephone Encounter - Kristine Whittington RN - 12/31/2024 3:33 PM EDT Called and spoke with pt's . Scheduled for 01/07/25 in [facility]. She is upset because pt is symptomatic, however Dr. Campa is in the OR until 01/06/25 which I did offer, however she chose to go to [facility]. Pt has not yet had staging CT completed or scheduled. This will need completed as soon as possible. Message sent to radiology scheduling to request scheduling. Cytology still in progress, should beresulted before appointment. * Telephone Encounter - Luis Espinoza DO - 12/31/2024 1:20 PM EDT Thank you for calling him Dr. Horta! We've been trying to help control his pain and discussed better diet choices for his current circumstance. * Telephone Encounter - Sylvia Horta DO - 12/31/2024 12:57 PM EDT I was able to contact the patient with regard to his pathology results from last week. Pathology was suggesting that it is most likely adenocarcinoma arising from the pancreas which would correlate well with the patient's story and presentation last week. The patient notes that he is still feeling quite poorly I have therefore ordered some additional labs were him to be obtained. I will place a order for Medical Oncology and Surgical Oncology for further evaluation Plan CMP and CBC ordered Medical Oncology referral Surgical Oncology referral A. Pancreas, Head, EUS guided fine needle aspiration: Adequacy: Less than optimal. Category: Suspicious for malignancy (WHO International System). Interpretation: Atypical epithelial cells, suspicious for adenocarcinoma (see comment). Comment: The histological sections of the cellblock preparation show fragments of fibromyxoid and fibromuscular tissue with few glands with [id number] atypia, and abundant eosinophils with few neutrophils, lymphocytes, and rare plasmacytoid cells; however, the epithelial atypia is best represented on the aspirate smears with scattered cells showing nuclear pleomorphism and abundant gastrointestinal contamination. Immunostains and deeper levels on the limited cell block A1 with adequate controls show that the glands are positive for CK7 with weak/patchy staining for KOC but show only patchy staining for p53 and Ki67. SMAD4 shows intact staining. Inhibin, CK20, CDX2, NKX3.1, PAX8, TTF1,and synaptophysin are negative. MUM1 and CD138 highlight rare cells. The low serum IgG4 is noted and the lack of significant plasma cells makes autoimmune IgG4- related pancreatitis unlikely. Overall,the limited findings are suspicious for adenocarcinoma. Clinical and radiological correlation is essential. documented in this encounter Plan of Treatment Upcoming Encounters Date Type Department Care Team (Late st Contact Info) Description 01/10/2025 5:50 PM EDT Anticoagulation Pharmacy, [facility] [address] [facility], [place] [address] Pharmacist1, [facility] [address] [facility] [place], [place] [address] 01/18/2025 10:00 AM EDT Office Visit Hematology/Oncology [facility] [address] [facility] [place] [address] Niya Nicole MD [address] [facility] [place] [address] 01/19/2025 10:00 AM EDT Office Visit Palliative Medicine [facility] [address] [facility], [place] [address] Fanta Edwards MD [address] [place] [address] 03/10/2025 8:20 AM EDT Office Visit Dermatology [facility] [address] [facility] [place], [place] [address] Kandi Rubalcava PA-C [address] [facility] [place], [place] [address] 03/25/2025 10:20 AM EDT Office Visit Family Practice [facility] [address] [facility] [place], [place] [address] Luis Espinoza DO [address] [facility] [place], [place] [address] 04/06/2025 3:30 PM EDT Office Visit Cardiology, [facility] [address] [place] [id number] Florida Martinez IV, MD [address] [place] [address] 06/29/2025 2:00 PM EDT Office Visit Nephrology, [facility] [address] [place], [place] [address] Aravind De La O MD [address] [place], [place] [address] 08/15/2025 9:20 AM EST Office Visit Family Practice [facility] [address] [place], [place] [address] Luis Espinoza DO [address] [facility] [place], [place] [address] 10/24/2025 11:00 AM EST Office Visit Cardiology, [facility] [address] [place] [address] Heidi Hitchcock PA-C [address] [place] [address] Scheduled Orders Name Type Priority Associated Diagnoses Orde r Schedule COMPREHENSIVE METABOLIC PANEL Lab Routine Malignant neoplasm of head of pancreas (HCC) Expected: 12/31/2024, Expires: 12/31/2025 CBC WITH WBC DIFFERENTIAL Lab Routine Malignant neoplasm of head of pancreas (HCC) Expected: 12/31/2024, Expires: 12/31/2025 Scheduled Referrals Name Type Priority Associated Diagnoses Orde r Schedule SURGICAL ONCOLOGY REFERRAL OP Referral Within 10 days (routine) Malignant neoplasm of head of pancreas (HCC) Ordered: 12/31/2024 HEMATOLOGY/ONCOLOGY REFERRAL OP Referral Within 10 days (routine) Malignant neoplasm of head of pancreas (HCC) Ordered: 12/31/2024 Health Maintenance Due Date Last Done Comments Adult Wellness Visit 10/04/2022 10/04/2021 COVID-19 Vaccine ( season) 2024 02/13/2024, 07/07/2023, 11/15/2022, Additional history exists CKD PHOS USE SMARTSET 59169 01/03/2026 05/0 12/2024, 01/03/2025, 11/26/2024, Additional history exists CKD HGB USE SMARTSET 70515 01/07/202601/07, 01/06/2025, 01/05/2025, Additional history exists DTap/Tdap Vaccines (3 - Td or Tdap) 12/26/2030 12/26/2020, 11/16/2010 Pneumococcal Vaccine: 50+ Years Completed 05/21/2016, 10/24/2009, 08/08/2004 Zoster Vaccines Completed 09/30/2018, 0 05/2018, 12/17/2011 Influenza Vaccine (FLU shot) Completed 05/28/2024, 07/30/2023, 07/05/2022, Additional history exists Albumin/Creatinine Ratio Discontinued 06/01/2024, 03/02 EKG Completed 01/03/2025, 12/01, 06/11/2024, Additional history exists HPV (Gardasil) Vaccine Aged Out No lo nger eligible based on patient's age to complete this topic Hepatitis B Vaccine Aged Out No longe r eligible based on patient's age to complete this topic MENINGOCOCCAL (MENACTRA/MENVEO) Aged Out No longer eligible based on patient's age to complete this topic Meningitis B Vaccine (Bexsero/Trumemba) Aged Out No longer eligible based on patient's age to complete this topic documented as of this encounter Medical Devices Implanted Type Area Health Inspector Food Device Identifier Shelf Expiration Date Model / Serial / Lot Clip Quick 2.8mm 230cm - [id number] Implanted:Qty: 1 on 08/19/2022 by Jojo Pearson MD at ENDOSCOPY [facility] [employer] 12/29/2024 HX-UR.A / / 25K Clip Quick 2.8mm 230cm - [id number] Implanted:Qty: 1 on 08/19/2022 by Jojo Pearson MD at ENDOSCOPY [facility] [employer] 12/29/2024 HX-202UR.A / / 25K Clip Quick 2.8mm 230cm - [id number] Implanted:Qty: 1 on 08/19/2022 by Jojo Pearson MD at ENDOSCOPY [facility] [employer] 12/29/2024 HX-UR.A / / 25K Clip Quick 2.8mm 230cm - [id number] Implanted:Qty: 1 on 08/19/2022 by Jojo Pearson MD at ENDOSCOPY [facility] Colon [employer] 12/29/2024 HX-202UR.A / / 25K Clip Quick 2.8mm 230cm - [id number] Implanted:Qty: 1 on 08/19/2022 by Jojo Pearson MD at ENDOSCOPY [facility] Colon [employer] 12/29/2024 HX-UR.A / / 25K Clip Quick 2.8mm 230cm - [id number] Implanted:Qty: 1 on 08/19/2022 by Jojo Pearson MD at ENDOSCOPY [facility] [employer] 12/29/2024 HX-UR.A / / 25K Stent [employer] [id number] - [id number] Implanted:Qty: 1 on 01/05/2025 by Jay Newman DO at ENDOSCOPY [facility] [employer] : ENDOSCOPY [id number] 09/09/2025 [id number] / / [id number] documented as of this encounter Visit Diagnoses Diagnosis Malignant neoplasm of head of pancreas (HCC)- Primary Malignant neoplasm of head of pancreas documented in this encounter Advance Directives Documents on File Type Date Recorded Patient Grease And Tallow Pumper Expl anation Advance Directives and Living Will [...] Relationship Healthcare Agent Relationshi p Communication Jie Maeve Spouse First Alternate Health Care Agent (per Health Care Power of Fabric Awning Repairer document) @[employer] Care Teams Loan Processor Relationship Specialty Start Date End Date Luis Espinoza DO [address] [place], [place] [address]gabi [facility] [place] [address] PCP - General Family Medicine 02/16/17 documented as of this encounter
--- OUTSIDE RECORDS SUMMARY | 2025-01-16 12:13 | External Medical Summary | Summary of Care ---
Author Name Unknown Organization [facility] Address [address] [place] [address] Phone [phone] Care Team Providers Care Windshield Repair Technician Name Role Phone Alexis Luis Shaye AMADO Primary Care Provider Reason for Visit * Reason Onset Date Comments Appointment 01/11/2025 Encounter Details Date Type Department Care Team (Late st Contact Info) Description 01/11/2025 Telephone Care Coordination and Integration [address], [place] [phone] Addison Hannah RN [address] [place] [address] Appointment Allergies Active Allergy Reactions Criticality Noted Date Comments Pollen 08/13/2017 Hay fever per patient documented as of this encounter (statuses as of 01/11/2025) Medications aspirin 81 MG chewable tablet mornings [...] Pain, Moderate or Pain, Severe. 20 Tablet 5 Active Warfarin Sodium 2 MG Oral Tablet [...] 10 MG Oral Tablet (Norvasc)Indicati ons:History of [place] (myocardial infarction) TAKE 1 TABLET [...] needed for Nausea. 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 Hx of BCC on left cheek - 2014 Coronary artery disease invo lving oneida coronary artery of oneida heart without angina pectoris 11/19/2016 History of basal cell carcinoma of skin 05/24/20 15 documented as of this encounter (statuses as of 01/11/2025) Resolved Problems Problem Noted Date Diagnosed Date [...] as of this encounter (statuses as of 01/11/2025) Immunizations Name Administration Dates Next Due COVID-19 mRNA, LNP-s, No Pre serve, 2-Dose Series (Moderna) 10/30/2020,09/27/2020 COVID-19, mRNA, LNP-s, PF, B ooster, 100mcg/0.5mg (Moderna) 07/04/2021 Covid-19, Mrna, Lnp-s, Pf, B ivalent, 30 Mcg, IM, 12 yrs and above (HouseCall) 11/15/2022 H1N1 2009 Influenza, IM 09/04/2009 HEP [...] 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 * Telephone Encounter - Shelby Casas LPN - 01/11/2025 10:37 AM EDT Spoke with Scheduled at [facility] on 01/13 Informed if any cancellations happened at [facility] tomorrow, I would call her * Telephone Encounter - Addison Hannah RN - 01/11/2025 9:59 AM EDT Patient currently has a palliative med appointment on 01/19 in [facility]. Patient would like to be seen sooner if possible. They are willing to travel to [place] for a sooner appt. Can this appointment be moved up? Thank you documented in this encounter Plan of Treatment Upcoming Encounters Date Type Department Care Team (Late st Contact Info) Description 01/12/2025 10:00 AM EDT Office Visit Palliative Medicine [facility] [address] [place], [place] [address] Fanta Edwards MD [address] [place] [address] [place] [address] 01/14/2025 5:50 PM EDT Anticoagulation Pharmacy, [facility] [place] [address] [place] [address] Pharmacist1, [facility] [address] [place], [place] [address] 01/17/2025 11:00 AM EDT Office Visit Family Practice [facility] [address] [place] [address] Luis Espinoza, DO [address] [place], [place] [address] 01/25/2025 9:45 AM EDT Imaging Radiology [address], [place] [address] [place] [phone] 02/01/2025 11:00 AM EDT Office Visit Hematology/Oncology [facility] [address] [place], [place] [phone] Niya Nicole MD [address] [place], [place] [address] 03/10/2025 8:20 AM EDT Office Visit Dermatology [facility] [address] [place], [place] [address] Kandi Rubalcava PA-C [address] [place], [place] [address] 03/25/2025 10:20 AM EDT Office Visit Family Practice [facility] [address] [place] [address] Luis Espinoza, DO [address] [place], [place] [address] 04/06/2025 3:30 PM EDT Office Visit Cardiology, [facility] [address] [place] [address] Florida Martinez IV, MD [address] [place] [address] 06/29/2025 2:00 PM EDT Office Visit Nephrology, [facility] [address] [facility] [place] [address] Aravind De La O MD [address] [place] [address] 08/15/2025 9:20 AM EST Office Visit Family Practice [facility] [address] [place] [address] Luis Espinoza, 200 [facility] [place] [address] 10/24/2025 11:00 AM EST Office Visit Cardiology, [facility] [address] [place] [phone] Heidi Hitchcock, PATunde [address] [place] [address] Health Maintenance Due Date Last Done Comments [...] this encounter Medical Devices Implanted Type Area Gusset Maker Device Identifier Shelf Expiration Date Model / Serial / Lot Clip Quick 2.8mm 230cm - [id number] Implanted:Qty: 1 on 08/19/2022 by Jojo Pearson MD at ENDOSCOPY [facility] Colon [employer] 12/29/2024 HX-UR.A / / 25K Clip Quick 2.8mm 230cm - [id number] Implanted:Qty: 1 on 08/19/2022 by Jojo Pearson MD at ENDOSCOPY [facility] Colon [employer] 12/29/2024 HX-UR.A / / 25K Clip Quick 2.8mm 230cm - [id number] Implanted:Qty: 1 on 08/19/2022 by Jojo Pearson MD at ENDOSCOPY [facility] Colon [employer] 12/29/2024 HX-UR.A / / 25K Clip Quick 2.8mm 230cm - [id number] Implanted:Qty: 1 on 08/19/2022 by Jojo Pearson MD at ENDOSCOPY [facility] Colon [employer] 12/29/2024 HX-UR.A / / 25K Clip Quick 2.8mm 230cm - [id number] Implanted:Qty: 1 on 08/19/2022 by Jojo Pearson MD at ENDOSCOPY [facility] Colon [employer] 12/29/2024 HX-UR.A / / 25K Clip Quick 2.8mm 230cm - [id number] Implanted:Qty: 1 on 08/19/2022 by Jojo Pearson MD at ENDOSCOPY [facility] Colon [employer] 12/29/2024 HX-UR.A / / 25K Stent [employer] [id number] - [id number] Implanted:Qty: 1 on 01/05/2025 by Jay Newman DO at ENDOSCOPY [facility] [employer] ENDOSCOPY [id number] 09/09/2025 [id number] / / [id number] documented as of this encounter Advance Directives Documents on File Type Date Recorded Patient Contract Associate Expl anation Advance Directives and Living Will [...] Care Agent (per Health Care Power of Make Up Editor document) [email or web address] Care Teams Windshield Repair Technician Relationship Specialty Start Date End Date Luis Espinoza DO [address] [place] [address] PCP - General Family Medicine 02/16/17 documented as of this encounter
--- OUTSIDE RECORDS SUMMARY | 2025-01-16 12:13 | External Medical Summary | Summary of Care ---
Author Name Unknown Organization [facility] Address [address] [place] [address] Phone [phone] Care Team Providers Care Roving Frame Tender Name Role Phone Luis Espinoza DO Primary Care Provider [phone] Reason for Visit * Reason Comments Dosage Adjustment Via Phone (anticoag Cl inic) Hospital Follow-Up Encounter Details Date Type Department Care Team (Latest Contact Info) Description 01/10/2025 5:50 PM EDT Anticoagulation Pharmacy, [facility] [address] [facility] [place] [address] Pharmacist1, [facility] [address] [place] [address] Chronic atrial fibrillation (HCC)*; Anticoagulation management encounter Allergies Active Allergy Reactions Criticality Noted Date [...] 10 MG Oral Tablet (Norvasc)Indicati ons:History of [place] (myocardial infarction) TAKE 1 TABLET BY MOUTH [...] protocol Chronic atrial fibrillation 02/28/2020 History of [place] (myocardial infarction) 05/23/2017 History of nonmelanoma skin cancer 04/22/2017 Overview (04/22/2017): 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 Maico Adams RPh, [facility] Clinical Pharmacist Medication Therapy Management Clinic 01/10/2025, 12:44 PM documented in this encounter Plan of Treatment Upcoming Encounters Date Type Department Care Team (Late st Contact Info) Description 01/14/2025 5:50 PM EDT Anticoagulation Pharmacy, [facility] [place] [address] [place] [address] [address] Pharmacist1, [facility] [address] [place] [address] 01/17/2025 11:00 AM EDT Office Visit Family Practice [facility] [place] [address] [place] [address] [address] Luis Espinoza, DO [address] [place] [address] [address] 01/19/2025 10:00 AM EDT Office Visit Palliative Medicine [facility] [address] [place] [address] Fanta Edwards MD [address] [place] [address] [place] [address] 01/25/2025 9:45 AM EDT Imaging Radiology [address] [place] [phone] 02/01/2025 11:00 AM EDT Office Visit Hematology/Oncology [facility] [address] [place] [phone] Niya Nicole MD [address] [place] [address] 03/10/2025 8:20 AM EDT Office Visit Dermatology [facility] [address] [place] [address] Kandi Rubalcava PA-C 200 [place] [address] 03/25/2025 10:20 AM EDT Office Visit Family Practice [facility] [address] [place] [address] Luis Espinoza, DO [address] [place] [address] 04/06/2025 3:30 PM EDT Office Visit Cardiology, [facility] [address] [place] [phone] Florida Martinez IV, MD [address] [facility] [place] [address] 06/29/2025 2:00 PM EDT Office Visit Nephrology, [facility] [address] [place] [address] Aravind De La O MD [address] [place] [address] 08/15/2025 9:20 AM EST Office Visit Family [facility] [address] [place] [address] Luis Espinoza DO [address] [facility] [place], [place] [address] 10/24/2025 11:00 AM EST Office Visit Cardiology, [facility] [address] [place] [phone] Heidi Hitchcock PA-C [address] [place] [address] Health Maintenance Due Date Last Done Comments [...] this encounter Medical Devices Implanted Type Area Geothermal Heat Pump Machinist Device Identifier Shelf Expiration Date Model / Serial / Lot Clip Quick 2.8mm 230cm - [id number] Implanted:Qty: 1 on 08/19/2022 by Jojo Pearson MD at ENDOSCOPY [facility] Colon [employer] 12/29/2024 HX-202UR.A / / 25K Clip Quick 2.8mm 230cm - [id number] Implanted:Qty: 1 on 08/19/2022 by Jojo Pearson MD at ENDOSCOPY [facility] Colon [employer] 12/29/2024 HX-202UR.A / / 25K Clip Quick 2.8mm 230cm - [id number] Implanted:Qty: 1 on 08/19/2022 by Jojo Pearson MD at ENDOSCOPY [facility] Colon [employer] 12/29/2024 HX-202UR.A / / 25K Clip Quick 2.8mm 230cm - [id number] Implanted:Qty: 1 on 08/19/2022 by Jojo Pearson MD at ENDOSCOPY [facility] Colon [employer] 12/29/2024 HX-202UR.A / / 25K Clip Quick 2.8mm 230cm - [id number] Implanted:Qty: 1 on 08/19/2022 by Jojo Pearson MD at ENDOSCOPY [facility] Colon [employer] 12/29/2024 HX-202UR.A / / 25K Clip Quick 2.8mm 230cm - [id number] Implanted:Qty: 1 on 08/19/2022 by Jojo Pearson MD at ENDOSCOPY [facility] Colon [employer] 12/29/2024 HX-UR.A / / 25K Stent Axios [id number] - [id number] Implanted:Qty: 1 on 01/05/2025 by Jay Newman DO at ENDOSCOPY [facility] [employer] : ENDOSCOPY [id number] 09/09/2025 [id number] / / [id number] documented as of this encounter Visit Diagnoses Diagnosis Chronic atrial fibrillation (HCC)- Primary Atrial fibrillation Anticoagulation management encounter Encounter for therapeutic drug monitoring documented in this encounter Advance Directives Documents on File Type Date Recorded Patient Rapier Insertion Loom Fixer Expl anation Advance Directives and Living Will [...] Care Agent (per Health Care Power of Talent Associate document) [email or web address] Care Teams Roving Frame Tender Relationship Specialty Start Date End Date Luis Espinoza DO [facility] [place] [address] PCP - General Family Medicine 02/16/17 documented as of this encounter
--- OUTSIDE RECORDS SUMMARY | 2025-01-16 12:13 | External Medical Summary | Summary of Care ---
Author Name Unknown Organization [facility] Address [address] [place] [address] Phone [phone] Care Team Providers Care Machine Cleaner Name Role Phone Alexis Luis Shaye AMADO Primary Care Provider Reason for Visit * Reason Onset Date Comments Appointment 01/11/2025 Encounter Details Date Type Department Care Team (Late st Contact Info) Description 01/11/2025 Telephone Care Coordination and Integration [address] [place], [place] [phone] Addison Hannah RN [address] [place] [address] Appointment Allergies Active Allergy Reactions [...] 10 MG Oral Tablet (Norvasc)Indicati ons:History of [place] (myocardial infarction) TAKE 1 TABLET BY MOUTH [...] protocol Chronic atrial fibrillation 02/28/2020 History of [place] (myocardial infarction) 05/23/2017 History of nonmelanoma skin cancer 04/22/2017 Overview (04/22/2017): 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 cheek - 2016 Hx of BCC on left cheek - 2014 Coronary artery disease invo lving red devil coronary artery of red devil heart without angina pectoris 11/19/2016 History of [...] Chronic atrial fibrillation 11/25/2017 12/01/2018 History of [place] (myocardial infarction) 05/23/2017 05/23/2017 Paroxysmal atrial fibrillation 05/24/2015 10/04/2021 Bipolar disorder, in full re mission, most recent episode depressed 05/24/2015 02/12/2023 Atrial fibrillation and flutter 05/24/2015 S/P CABG (coronary artery bypass graft) 05/23/2017 [place] (myocardial infarction) 0 05/23/2017 Overview (05/24/2015): 3 [...] 30 Mcg, IM, 12 yrs and above (Send the Trend) 11/15/2022 H1N1 2009 Influenza, IM 09/04/2009 HEP [...] 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 Patient would like to be seen sooner if possible. They are willing to travel to [place] for a sooner appt. Can this appointment be moved up? Thank you documented in this encounter Plan of Treatment Upcoming Encounters Date Type Department Care Team (Late st Contact Info) Description 01/12/2025 10:00 AM EDT Office Visit Palliative Medicine [facility] [address] [place] [address] Fanta Edwards MD [address] [place] [address] [place] [address] 01/14/2025 5:50 PM EDT Anticoagulation Pharmacy, [facility] [address] [place], [place] [address] Pharmacist1, [facility] [address] [place], [place] [address] 01/17/2025 11:00 AM EDT Office Visit Family Practice [facility] [address] [place], [place] [address] Luis Espinoza, DO [address] [place], [place] [address] 01/25/2025 9:45 AM EDT Imaging Radiology [address] [place] [phone] 02/01/2025 11:00 AM EDT Office Visit Hematology/Oncology [facility] [address] [place], [place] [phone] Niya Nicole MD [address] [place], [place] [address] 03/10/2025 8:20 AM EDT Office Visit Dermatology [facility] [address] [place], [place] [address] Kandi Rubalcava PA-C [address] [place], [place] [address] 03/25/2025 10:20 AM EDT Office Visit [facility] [address] [place] [address] Luis Espinoza, DO [address] [place], [place] [address] 04/06/2025 3:30 PM EDT Office Visit Cardiology, [facility] [address] [place] [phone] Florida Martinez IV, MD [address] [place] [address] 06/29/2025 2:00 PM EDT Office Visit Nephrology, [facility] [address] [facility] [place] [address] Aravind De La O MD [address] [facility] [place] [address] 08/15/2025 9:20 AM EST Office Visit Family Practice [facility] [address] [facility] [place] [address] Luis Espinoza DO [address] [facility] [place] [address] 10/24/2025 11:00 AM EST Office Visit Cardiology, [facility] [address] [place] [address] Heidi Hitchcock PA-C [address] [place] [address] Health Maintenance Due Date Last Done Comments [...] this encounter Medical Devices Implanted Type Area Machine Wedger Device Identifier Shelf Expiration Date Model / Serial / Lot Clip Quick 2.8mm 230cm - [id number] Implanted:Qty: 1 on 08/19/2022 by Jojo Pearson MD at ENDOSCOPY [facility] Colon [employer] 12/29/2024 HX-UR.A / / 25K Clip Quick 2.8mm 230cm - [id number] Implanted:Qty: 1 on 08/19/2022 by Jojo Pearson MD at ENDOSCOPY [facility] Colon [employer] 12/29/2024 HX-UR.A / / 25K Clip Quick 2.8mm 230cm - [id number] Implanted:Qty: 1 on 08/19/2022 by Jojo Pearson MD at ENDOSCOPY [facility] Colon [employer] 12/29/2024 HX-UR.A / / 25K Clip Quick 2.8mm 230cm - [id number] Implanted:Qty: 1 on 08/19/2022 by Jojo Pearson MD at ENDOSCOPY [facility] Colon [employer] 12/29/2024 HX-UR.A / / 25K Clip Quick 2.8mm 230cm - [id number] Implanted:Qty: 1 on 08/19/2022 by Jojo Pearson MD at ENDOSCOPY [facility] Colon [employer] 12/29/2024 HX-UR.A / / 25K Clip Quick 2.8mm 230cm - [id number] Implanted:Qty: 1 on 08/19/2022 by Jojo Pearson MD at ENDOSCOPY [facility] Colon [employer] 12/29/2024 HX-UR.A / / 25K Stent [employer] [id number] - [id number] Implanted:Qty: 1 on 01/05/2025 by [place] Newman DO [place] [facility] [employer] : ENDOSCOPY [id number] 09/09/2025 [id number] / / [id number] documented as of this encounter Advance Directives Documents on File Type Date Recorded Patient Decal Decorator Expl anation Advance Directives and Living Will [...] Care Agent (per Health Care Power of Landscape Artist document) [email or web address] Care Teams Machine Cleaner Relationship Specialty Start Date End Date Luis Espinoza DO [address] [place], [place] [address] [address] PCP - General Family Medicine 02/16/17 documented as of this encounter
--- OUTSIDE RECORDS SUMMARY | 2025-01-16 12:13 | External Medical Summary | Summary of Care ---
Author Name Unknown Organization [facility] Address [address] [place] [address] Phone [phone] Care Team Providers Care Painter Barrel Name Role Phone Luis Espinoza DO Primary Care Provider [phone] Reason for Referral * Evaluate & Treat - Unlimited Visits (Within 10 days (routine)) - Authorized Specialty Diagnoses / Procedures Referred By Gayathri rios Referred To Contact Hematology/Oncology / Hematology Oncology Diagnoses Malignant neoplasm of head of pancreas (HCC) Sylvia Horta DO [address] [place] [address] Phone: tel: fax: Referral ID Status Reason Start Date Expiration Date Visits Requested Visits Authorized [id number] Authorized Specialty Services Required 12/31/2024 999 999 [...] (HCC) Sylvia Horta DO [address] [place] [address] Phone: tel: fax: Referral ID Status Reason Start Date Expiration Date Visits Requested Visits Authorized [id number] Authorized Specialty Services Required 12/31/2024 999 999 [...] Horta DO [address] [place] [address] Test Results Allergies Active Allergy Reactions Criticality [...] 10 MG Oral Tablet (Norvasc)Indicat ions:History of [place] (myocardial infarction) TAKE 1 TABLET BY MOUTH [...] protocol Chronic atrial fibrillation 02/28/2020 History of [place] (myocardial infarction) 05/23/2017 History of nonmelanoma skin cancer 04/22/2017 Overview (04/22/2017): 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 cheek - 2015 Hx of BCC on left cheek - 2014 Coronary artery disease invo lving [place] coronary artery of [place] heart without angina pectoris 11/19/2016 History of [...] graft) 05/23/2017 [place] (myocardial infarction) 0 05/23/2017 Overview (05/24/2015): 3 [...] 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 * Telephone Encounter - Corona Bowling RN - 01/10/2025 7:31 AM EDT Pt discharged from hospital. Message sent to scheduling to call patient to offer earlier consult with provider. Message was left on 01/07. * Telephone Encounter - Alma Smith RN - 01/03/2025 1:01 PM EDT Patient admitted in [place]. * Telephone Encounter - Sylvia Horta DO - 01/03/2025 12:05 PM EDT I believe the patient will need to see Medical Oncology as well. Can we help attain an appointment with them * Telephone Encounter - Kristine Whittington RN - 12/31/2024 3:33 PM EDT Called and spoke with pt's . Scheduled for 01/07/25 in [facility]. She is upset because pt is symptomatic, however Dr. Campa is in the OR until 01/06/25 which I did offer, however she chose to go to [facility]. Pt has not yet had staging CT [...] and fibromuscular tissue with few glands with [id number] atypia, and abundant eosinophils with few neutrophils, [...] Description 01/14/2025 5:50 PM EDT Anticoagulation Pharmacy, [facility] [address] [facility] [place] [address] Pharmacist1, [facility] [address] [facility] [place] [address] 01/17/2025 11:00 AM EDT Office Visit Family Practice [facility] [address] [facility] [place] [address] Luis Espinoza DO [address] [facility] [place] [address] 01/19/2025 10:00 AM EDT Office Visit Palliative Medicine [facility] [address] [place] [phone] Fanta Edwards MD [address] [place] [address] [place] [address] 01/25/2025 9:45 AM EDT Imaging Radiology [facility] [place] [address] [place] [address] 02/01/2025 11:00 AM EDT Office Visit Hematology/Oncology [facility] [address] [facility] [place] [phone] Niya Nicole MD [address] [facility] [place] [address] 03/10/2025 8:20 AM EDT Office Visit Dermatology [facility] [address] [place], [place] [address] Kandi Rubalcava PA-C [address] [place] [address] 03/25/2025 10:20 AM EDT Office Visit [facility] [address] [place], [place] [address] Luis Espinoza, DO [address] [place], [place] [address] 04/06/2025 3:30 PM EDT Office Visit Cardiology, [facility] [address] [place] [phone] Florida Martinez IV, MD [address] [place] [address] 06/29/2025 2:00 PM EDT Office Visit Nephrology, [facility] [address] [place], [place] [address] Aravind De La O MD [address] [place], [place] [address] 08/15/2025 9:20 AM EST Office Visit [facility] [address] [place], [place] [address] Luis Espinoza, DO [address] [facility] [place], [place] [address] 10/24/2025 11:00 AM EST Office Visit Cardiology, [facility] [address] [place] [phone] Heidi Hitchcock PA-C [address] [place] [address] Scheduled Orders Name Type Priority Associated Diagnoses [...] this encounter Medical Devices Implanted Type Area Laundry Operator Finishing Device Identifier Shelf Expiration Date Model / Serial / Lot Clip Quick 2.8mm 230cm - [id number] Implanted:Qty: 1 on 08/19/2022 by Jojo Pearson MD at ENDOSCOPY [facility] [employer] 12/29/2024 HX-202UR.A / / 25K Clip Quick 2.8mm 230cm - [id number] Implanted:Qty: 1 on 08/19/2022 by Jojo Pearson MD at ENDOSCOPY [facility] [employer] 12/29/2024 HX-202UR.A / / 25K Clip Quick 2.8mm 230cm - [id number] Implanted:Qty: 1 on 08/19/2022 by Jojo Pearson MD at ENDOSCOPY [facility] [employer] 12/29/2024 HX-UR.A / / 25K Clip Quick 2.8mm 230cm - [id number] Implanted:Qty: 1 on 08/19/2022 by Jojo Pearson MD at ENDOSCOPY [facility] [employer] 12/29/2024 HX-UR.A / / 25K Clip Quick 2.8mm 230cm - [id number] Implanted:Qty: 1 on 08/19/2022 by Jojo Pearson MD at ENDOSCOPY [facility] [employer] 12/29/2024 HX-UR.A / / 25K Clip Quick 2.8mm 230cm - [id number] Implanted:Qty: 1 on 08/19/2022 by Jojo Pearson MD at ENDOSCOPY [facility] [employer] 12/29/2024 HX-UR.A / / 25K [employer]ent [employer] [id number] - [id number] Implanted:Qty: 1 on 01/05/2025 by Jay Newman DO at ENDOSCOPY [facility] [employer] : ENDOSCOPY [id number] 09/09/2025 [id number] / / [id number] documented as of this encounter Visit Diagnoses Diagnosis Malignant neoplasm of head of pancreas (HCC)- Primary Malignant neoplasm of head of pancreas documented in this encounter Advance Directives Documents on File Type Date Recorded Patient Parts Finisher Expl anation Advance Directives and Living Will [...] Care Agent (per Health Care Power of Ironer Sock document) [email or web address] Care Teams Painter Barrel Relationship Specialty Start Date End Date Luis Espinoza DO [facility] [place] [address] PCP - General Family Medicine 02/16/17 documented as of this encounter
--- OUTSIDE RECORDS SUMMARY | 2025-01-16 12:13 | External Medical Summary | Summary of Care ---
Author Name Unknown Organization [facility] Address [address] [place] [address] Phone [phone] Care Team Providers Care Endoscopy Technican Name Role Phone Alexis Luis Shaye AMADO Primary Care Provider Reason for Visit * Reason Onset Date Comments Appointment 01/11/2025 Encounter Details Date Type Department Care Team (Late st Contact Info) Description 01/11/2025 Telephone Care Coordination and Integration [address] [place], [place] [phone] Addison Hannah RN [address] [place] [address] Appointment Allergies Active Allergy Reactions [...] 10 MG Oral Tablet (Norvasc)Indicati ons:History of [place] (myocardial infarction) TAKE 1 TABLET BY MOUTH [...] protocol Chronic atrial fibrillation 02/28/2020 History of ND (myocardial infarction) 05/23/2017 History of nonmelanoma skin cancer 04/22/2017 Overview (04/22/2017): 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 cheek - 2016 Hx of BCC on left cheek - 2014 Coronary artery disease invo lving [place] coronary artery of [place] heart without angina pectoris 11/19/2016 History of [...] Chronic atrial fibrillation 11/25/2017 12/01/2018 History of [place] (myocardial infarction) 05/23/2017 05/23/2017 Paroxysmal atrial fibrillation 05/24/2015 10/04/2021 Bipolar disorder, in full re mission, most recent episode depressed 05/24/2015 02/12/2023 Atrial fibrillation and flutter 05/24/2015 S/P CABG (coronary artery bypass graft) 05/23/2017 [place] (myocardial infarction) 0 05/23/2017 Overview (05/24/2015): 3 [...] 30 Mcg, IM, 12 yrs and above ([employer]) 11/15/2022 H1N1 2009 Influenza, IM 09/04/2009 HEP [...] 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 Patient would like to be seen sooner if possible. They are willing to travel to [place] for a sooner appt. Can this appointment be moved up? Thank you documented in this encounter Plan of Treatment Upcoming Encounters Date Type Department Care Team (Late st Contact Info) Description 01/12/2025 10:00 AM EDT Office Visit Palliative Medicine [facility] [address] [place], [place] [address] Fanta Edwards MD [address] [place] [address] [place] [address] 01/14/2025 5:50 PM EDT Anticoagulation Pharmacy, [facility] [place] [address] [place] [address] Pharmacist1, [facility] [address] [place], [place] [address] 01/17/2025 11:00 AM EDT Office Visit Family Practice [facility] [address] [place] [address] Luis Espinoza, DO [address] [place], [place] [address] 01/25/2025 9:45 AM EDT Imaging Radiology [address], [place] [address] [place] [phone] 02/01/2025 11:00 AM EDT Office Visit Hematology/Oncology [facility] [address] [place], [place] [phone] Niya Nicole MD [address] [place], [place] [address] 03/10/2025 8:20 AM EDT Office Visit Dermatology [facility] [address] [place], [place] [address] Kandi Rubalcava PA-C [address] [place], [place] [address] 03/25/2025 10:20 AM EDT Office Visit Family Practice [facility] [address] [place] [address] Luis Espinoza, DO [address] [place], [place] [address] 04/06/2025 3:30 PM EDT Office Visit Cardiology, [facility] [address] [place] [phone] Florida Martinez IV, MD [address] [place] [address] 06/29/2025 2:00 PM EDT Office Visit Nephrology, [facility] [address] [facility] [place] [address] Aravind De La O MD [address] [facility] [address] 08/15/2025 9:20 AM EST Office Visit Family Practice [facility] [address] [place] [address] Luis Espinoza, [address] [facility] [place] [address] 10/24/2025 11:00 AM EST Office Visit Cardiology, [facility] [address] [place] [phone] Heidi Hitchcock, PATunde [address] [place] [address] Health Maintenance Due Date Last Done Comments [...] this encounter Medical Devices Implanted Type Area Decker Operator Device Identifier Shelf Expiration Date Model / Serial / Lot Clip Quick 2.8mm 230cm - [id number] Implanted:Qty: 1 on 08/19/2022 by Jojo Pearson MD at ENDOSCOPY [facility] [employer] 12/29/2024 HX-UR.A / / 25K Clip Quick 2.8mm 230cm - [id number] Implanted:Qty: 1 on 08/19/2022 by Jojo Pearson MD at ENDOSCOPY [facility] [employer] 12/29/2024 HX-UR.A / / 25K Clip Quick 2.8mm 230cm - [id number] Implanted:Qty: 1 on 08/19/2022 by Jojo Pearson MD at ENDOSCOPY [facility] [employer] 12/29/2024 HX-UR.A / / 25K Clip Quick 2.8mm 230cm - [id number] Implanted:Qty: 1 on 08/19/2022 by Jojo Pearson MD at ENDOSCOPY [facility] [employer] 12/29/2024 HX-UR.A / / 25K Clip Quick 2.8mm 230cm - [id number] Implanted:Qty: 1 on 08/19/2022 by Jojo Pearson MD at ENDOSCOPY [facility] [employer] 12/29/2024 HX-UR.A / / 25K Clip Quick 2.8mm 230cm - [id number] Implanted:Qty: 1 on 08/19/2022 by Jojo Pearson MD at ENDOSCOPY [facility] [employer] 12/29/2024 HX-UR.A / / 25K Stent [employer] [id number] - [id number] Implanted:Qty: 1 on 01/05/2025 by Jay Newman DO at ENDOSCOPY [facility] [employer] : ENDOSCOPY [id number] 09/09/2025 [id number] / / [id number] documented as of this encounter Advance Directives Documents on File Type Date Recorded Patient Reamer Hand Expl anation Advance Directives and Living Will 09/28/2016 LIVING WILL * Full Code (Latest Code Status on File) Date Activated Date Inactivated Comments 01/03/2025 4:12 AM 01/07/2025 5:59 PM Question Answer Comments Discussion of Advance Direct amrie occurred with: Not Discussed due to patient's [...] Care Agent (per Health Care Power of Patient Account Specialist document) [email or web address] Care Teams Endoscopy Technican Relationship Specialty Start Date End Date Luis Espinoza DO [address] [place] [address] PCP - General Family Medicine 02/16/17 documented as of this encounter
--- OUTSIDE RECORDS SUMMARY | 2025-01-16 12:13 | External Medical Summary | Summary of Care ---
Author Name Unknown Organization [facility] Address [address] [place] [address] Phone [phone] Care Team Providers Care Joint Supervisor Name Role Phone Alexis Luis Shaye AMADO Primary Care Provider Reason for Visit * Reason Onset Date Comments Appointment 01/11/2025 Encounter Details Date Type Department Care Team (Late st Contact Info) Description 01/11/2025 Telephone Care Coordination and Integration [address] [place], [place] [phone] Addison Hannah RN [address] [place] [address] Appointment Allergies Active Allergy Reactions [...] 10 MG Oral Tablet (Norvasc)Indicati ons:History of [place] (myocardial infarction) TAKE 1 TABLET BY MOUTH [...] protocol Chronic atrial fibrillation 02/28/2020 History of [place] (myocardial infarction) 05/23/2017 History of nonmelanoma skin cancer 04/22/2017 Overview (04/22/2017): 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 cheek - 2016 Hx of BCC on left cheek - 2014 Coronary artery disease invo lving [place] coronary artery of [place] heart without angina pectoris 11/19/2016 History of [...] graft) 05/23/2017 [place] (myocardial infarction) 0 05/23/2017 Overview (05/24/2015): 3 [...] 30 Mcg, IM, 12 yrs and above ([employer]) 11/15/2022 H1N1 2009 Influenza, IM 09/04/2009 HEP [...] 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 Patient would like to be seen sooner if possible. They are willing to travel to [place] for a sooner appt. Can this appointment be moved up? Thank you documented in this encounter Plan of Treatment Upcoming Encounters Date Type Department Care Team (Late st Contact Info) Description 01/12/2025 10:00 AM EDT Office Visit Palliative Medicine [facility] [address] [place] [address] Fanta Edwards MD [address] [place] [address] [place] [address] 01/14/2025 5:50 PM EDT Anticoagulation Pharmacy, [facility] [address] [place], [place] [address] Pharmacist1, [facility] [address] [place], [place] [address] 01/17/2025 11:00 AM EDT Office Visit Family Practice [facility] [address] [place], [place] [address] Luis Espinoza, DO [address] [place], [place] [address] 01/25/2025 9:45 AM EDT Imaging Radiology [address] [place] [phone] 02/01/2025 11:00 AM EDT Office Visit Hematology/Oncology [facility] [address] [place], [place] [phone] Niya Nicole MD [address] [place], [place] [address] 03/10/2025 8:20 AM EDT Office Visit Dermatology [facility] [address] [place], [place] [address] Kandi Rubalcava PA-C [address] [place], [place] [address] 03/25/2025 10:20 AM EDT Office Visit [facility] [address] [place] [address] Luis Espinoza, DO [address] [place], [place] [address] 04/06/2025 3:30 PM EDT Office Visit Cardiology, [facility] [address] [place] [phone] Florida Martinez IV, MD [address] [place] [address] 06/29/2025 2:00 PM EDT Office Visit Nephrology, [facility] 200 [facility] [place] [address] Aravind De La O MD [address] [facility] [place] [address] 08/15/2025 9:20 AM EST Office Visit Family Practice [facility] [address] [facility] [place] [address] Luis Espinoza DO [address] [facility] [place] [address] 10/24/2025 11:00 AM EST Office Visit Cardiology, [facility] [address] [place] [address] Heidi Hitchcock PA-C [address] [place] [address] Health Maintenance Due Date Last Done Comments [...] this encounter Medical Devices Implanted Type Area Eeler Device Identifier Shelf Expiration Date Model / Serial / Lot Clip Quick 2.8mm 230cm - [id number] Implanted:Qty: 1 on 08/19/2022 by Jojo Pearson MD at ENDOSCOPY [facility] [employer] 12/29/2024 HX-UR.A / / 25K Clip Quick 2.8mm 230cm - [id number] Implanted:Qty: 1 on 08/19/2022 by Jojo Pearson MD at ENDOSCOPY [facility] [employer] 12/29/2024 HX-UR.A / / 25K Clip Quick 2.8mm 230cm - [id number] Implanted:Qty: 1 on 08/19/2022 by Jojo Pearson MD at ENDOSCOPY [facility] Colon [employer] 12/29/2024 HX-UR.A / / 25K Clip Quick 2.8mm 230cm - [id number] Implanted:Qty: 1 on 08/19/2022 by Jojo Pearson MD at ENDOSCOPY [facility] [employer] 12/29/2024 HX-UR.A / / 25K Clip Quick 2.8mm 230cm - [id number] Implanted:Qty: 1 on 08/19/2022 by Jojo Pearson MD at ENDOSCOPY [facility] [employer] 12/29/2024 HX-UR.A / / 25K Clip Quick 2.8mm 230cm - [id number] Implanted:Qty: 1 on 08/19/2022 by Jojo Pearson MD at ENDOSCOPY [facility] [employer] 12/29/2024 HX-UR.A / / 25K Stent [employer] [id number] - [id number] Implanted:Qty: 1 on 01/05/2025 by Jay Newman DO at ENDOSCOPY [facility] [employer] : ENDOSCOPY [id number] 09/09/2025 [id number] / / [id number] documented as of this encounter Advance Directives Documents on File Type Date Recorded Patient Naval Architect Specialist Expl anation Advance Directives and Living [...] Care Agent (per Health Care Power of Wood Caulker document) [email or web address] Care Teams Joint Supervisor Relationship Specialty Start Date End Date Luis Espinoza DO [address] [place], [place] [address] [place] [address] PCP - General Family Medicine 02/16/17 documented as of this encounter
--- OUTSIDE RECORDS SUMMARY | 2025-01-16 12:13 | External Medical Summary | Summary of Care ---
Author Name Unknown Organization [facility] Address [address] [place] [address] Phone [phone] Care Team Providers Care Arc Cutter Name Role Phone Luis Espinoza DO Primary Care Provider [phone] Reason for Referral * Precert (Within 10 days (routine)) - Authorized Specialty Diagnoses / Procedures Referred By Gayathri rios Referred To Contact Radiology Diagnoses Malignant neoplasm of pancreas, unspecified location of malignancy (HCC) Abnormal findings on diagnostic imaging of liver and biliary tract Procedures PET CT SKULL BASE TO MID-THIGH FDG Niya Nicole MD [address] [place] [address] Phone: tel: fax: Referral ID Status Reason Start Date Expiration Date V isits Requested Visits Authorized [id number] Authorized 01/24/2025 999 [id number] Reason for Visit * Reason Comments 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 * Evaluate & Treat - Unlimited Visits (Within 10 days (routine)) - Authorized Specialty Diagnoses / Procedures Referred By Gayathri rios Referred To Contact Hematology/Oncology / Hematology Oncology Diagnoses 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 (HCC) Sebastian Loya PA-C [address] [place] [address] Phone: tel: fax: HEM/ONC [facility] [address] [place] [address] Phone: tel: fax: Referral ID Status Reason Start Date Expiration Date Visits Requested Visits Authorized [id number] Authorized Specialty Services Required 01/04/2025 999 [id number] Encounter Details Date Type Department Care Team (Late st Contact Info) Description 01/10/2025 3:00 PM EDT Office Visit Hematology/Oncology [facility] [address] [facility] [place] [address] Niya Nicole MD [address] [facility] [place] [place] [address] Malignant neoplasm of pancreas, unspecified location of malignancy (HCC)*; Abnormal findings on diagnostic imaging of liver and biliary tract Allergies Active Allergy Reactions Criticality Noted Date [...] 10 MG Oral Tablet (Norvasc)Indicati ons:History of [place] (myocardial infarction) TAKE 1 TABLET BY MOUTH [...] than 7 out of 10.). 80 Tablet Active Ondansetron HCl 4 MG Oral TabletIndications [...] protocol Chronic atrial fibrillation 02/28/2020 History of [place] (myocardial infarction) 05/23/2017 History of nonmelanoma skin cancer 04/22/2017 Overview (04/22/2017): 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 cheek - 2015 Hx of BCC on left cheek - 2014 Coronary artery disease invo lving grayling coronary artery of grayling heart without angina pectoris 11/19/2016 History of [...] graft) 05/23/2017 [place] (myocardial infarction) 0 05/23/2017 Overview (05/24/2015): 3 [...] 30 Mcg, IM, 12 yrs and above (Haolianluo) 11/15/2022 H1N1 2009 Influenza, IM 09/04/2009 HEP [...] 12/27/2024 Does the household have a re gular source of income? 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 Not on file Not on file documented as of this encounter Last Filed Vital Signs Vital Sign Reading Time Taken Comments Blood Pressure 98/62 01/10/2025 3:03 PM EDT Pulse 82 01/10/2025 3:03 PM EDT Temperature 36.4 °C (97.5 °F) 01/10/2025 3:03 PM ED T Respiratory Rate - - Oxygen Saturation 99% 01/10/2025 3:03 PM EDT Inhaled Oxygen Concentration - - Weight 52.1 kg (114 lb 14.4 oz) 01/10/2025 3:03 PM EDT Height 161.9 cm (5' 3.75") 01/10/2025 3:03 PM ED T Body Mass Index 19.88 01/10/2025 3:03 PM EDT documented in this encounter Functional Status [...] Entry Date Author No 12/22/2024 8:56 PM LIDAT Nette Miranda RN documented in this encounter Progress Notes * Niya Nicole MD - 01/10/2025 2:50 PM EDT Outpatient Consult Note Data Source: Patient, Epic record. 01/10/2025 2:50 PM Andrade Mcfarlane [id number] 84 year old DO Sebastian Blair PA-C Patient Encounter: HEMATOLOGY[facility]ONCOLOGY [facility] Reason for consult: 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 HPI: 84 year old, male with with history of chronic diastolic failure, atrial fibrillation/flutter on warfarin, hypertension, hyperlipidemia, coronary artery disease status post CABG in 1990 and [place] s/p PCI x3 stents in 2011 referred with the above diagnosis. He initially presented with complaint of increasing abdominal pain and had CT scan done on 12/22/2024 which revealed large infiltrative pancreatic head/uncinate process mass likely represents primary adenocarcinoma of the pancreas causing obstruction with dilation of the pancreatic and common bile ducts, additionally, there is involvement of the duodenum with vascular involvement, subcentimeter abdominal lymph nodes should be evaluated on follow-up to exclude lymphatic metastasis, right basilar 1.3 cm solid nodule. Patient was transfer to [facility] for GI evaluation. Patient lost 10 pounds. There was also concern for obstruction of biliary tract. He has obstructive jaundice on initial evaluation with elevated LFTs. On 12/24/2024 he had a EGD and EUS completed. EUS note a 36mm mass in the pancreatic head, T3N1M0 byendosonographic criteria. A biliary sphincterotomy was performed. Cells for cytology obtained in the lower third of the main duct. One covered metal stent was placed into the common bile duct. Pathology consistent with atypical epithelial cells that were suspicious for adenomacarcinoma, CA19-9 was elevated and was 316.8 on 12/24/2024 and repeated was 295 on 01/03/2025. Post procedure, patient developed worsening his abdominal pain found to have elevated lipase more than usual. He was receiving IV fluids and pain management for post ERCP pancreatitis. He was discharged on 12/26/2004 after improvement in the abdominal pain. He was readmitted to the hospital on 01/03/2025 with a worsening abdominal pain with the vomiting and nausea and no bowel movements in the setting of SBO in the setting of a known new pancreatic mass. Patient was initially admitted to the surgery service and deemed not to be a surgical candidate soultimately underwent GJ stent placement with GI. He tolerated this procedure well and afterwards was able to tolerate a full liquid diet and be advanced to a mechanical soft diet. Repeat imaging showed resolved SBO. Last CT scan of chest was done on 01/04/2025 which revealed right lower lobe pulmonary nodule measuring 1.4 centimeter suspicious for metastases. Final Diagnosis A. Pancreas, Head, EUS guided fine needle aspiration: Adequacy: Less than optimal. Category: Suspicious for malignancy (WHO International System). Interpretation: Atypical epithelial cells, suspicious for adenocarcinoma (see comment). Comment: The histological sections of the cellblock preparation show fragments of fibromyxoid and fibromuscular tissue with few glands with [id number] atypia, and abundant eosinophils with few neutrophils, [...] unlikely. Overall,the limited findings are suspicious for adenocarcinoma Final Diagnosis A. Bile Duct, Endoscopic brushing: Adequacy: Satisfactory for evaluation. Category: Atypical. Interpretation: Few atypical epithelial cells with benign and reactive-appearing ductal epithelial cells (see comment). Comment: The histological sections of the cellblock preparation show similar findings with a predominance of benign and reactive appearing cells. The molecular findings showing a tier 2 MET variant of potential significance are noted (see linked report). The findings are challenging to interpret since there is no definitive high-grade atypia; however, given the recent suspicious pancreatic biopsy, the findings may represent a neoplastic process not well sampled by the brushing. Immunotherapy Markers Tumor Mutational [place] (TMB): TMB Unit [place] 0 m/MB Low Microsatellite Instability Status (MSI): MSI Status 2.02 Stable Result Detail Tier I: Strong Significance Variants No variants detected. Tier II: Potential Significance Variants Translocations/Fusions and Exon Skipping Gene Transcript/Fusion or Exon Skipping Tier Reads MET MET(13)::MET(15) Tier 2: Potential significance 16 Patient is complaining of generalized weakness and fatigue and episodes of abdominal pain. He denies any headache, dizziness, chest pain, palpitation, nausea, vomiting, bleeding, hematuria, hematochezia. He denies smoking or drinking. Family history significant for the father who of malignant melanoma. Brother of aggressive cancer of the skin. Past Medical History: Diagnosis Date Atrial fibrillation and flutter ([facility]) Does not realize when he goes in to it BCC (basal cell carcinoma), face Moh's done Bipolar disorder (manic depression) ([facility]) Glaucoma Manic episode ([facility]) 2000 1 week inpatient stay [place] (myocardial infarction) ([facility]) 2011 3 in 2012 - 3 stents and an ablation done S/P CABG (coronary artery bypass graft) 1990 Current Outpatient Medications Medication Sig Dispense Refill aspirin 81 MG chewable tablet mornings latanoprost (XALATAN) 0.005 % ophthalmic solution Instill 1 Drop into both eyes at bedtime. 1 drop,left eye only, bedtime Vitamin D 50 MCG (1999 UT) Oral Capsule Take 1 Capsule by mouth at bedtime. Timolol Hemihydrate 0.5 % Ophthalmic Solution (Betimol) Instill 1 Drop into the left eye in the morning. Meclizine HCl 25 MG Oral Tablet (Antivert) Take 1 Tablet by mouth 3 times a day as needed. Rosuvastatin Calcium 40 MG Oral Tablet (Crestor) TAKE ONE TABLET BY MOUTH EVERY EVENING WITH [id number] Tablet 3 Carvedilol 6.25 MG Oral Tablet (Coreg) Take 1 Tablet by mouth in the morning and 1 Tablet before bedtime. 180 Tablet 3 carBAMazepine ER 300 MG Oral Capsule Extended Release 12 Hour (Carbatrol) take 1 CAPSULE by mouth at bedtime 90 Capsule 3 Omeprazole 40 MG Oral Capsule Delayed Release (PriLOSEC) Take 1 Capsule by mouth in the morning. 1 hour before the first meal of the day. 40 Capsule 3 Fluorouracil 5 % External Cream Apply topically to affected area 2 times a day. Apply to forehead. 40 g 1 triamcinolone 0.1% / cerave 1:1 1:1 TOP cream Apply topically to affected area every 6 hours as needed for Itching (for itchy ankles/legs). Apply to ankles/legs Famotidine 20 MG Oral Tablet (Pepcid) Take 1 Tablet by mouth 2 times a day as needed for Heartburn or Other (stomach pain). Acetaminophen 325 MG Oral Tablet (Tylenol) Take 1 Tablet by mouth every 6 hours as needed for Other(stomach pain). traMADol HCl 50 MG Oral Tablet (Ultram) Take 1 Tablet by mouth every 6 hours as needed for Pain, Moderate or Pain, Severe. 20 Tablet 0 Warfarin Sodium 2 MG Oral Tablet (Coumadin) TAKE 1 TABLET BY MOUTH DAILY FRIDAY, FRIDAY,FRIDAY AND 2 TABLETS ALL OTHER DAYS OR DIRECTED BY COAG CLINIC Do not start before December 30, 2024. 132 Tablet 3 Lisinopril 20 MG Oral Tablet (Prinivil) Take 1 Tablet by mouth 2 times a day with morning and evening meals. 90 Tablet 3 Polyethylene Glycol 3350 17 GM Oral Packet (Miralax) Take 1 Packet by mouth in the morning. 14 Each0 amLODIPine Besylate 10 MG Oral Tablet (Norvasc) TAKE 1 TABLET BY MOUTH EVERY MORNING 90 Tablet 3 Docusate Sodium 100 MG Oral Capsule (Colace) Take 1 Capsule by mouth in the morning and 1 Capsule before bedtime. oxyCODONE HCl 5 MG Oral Tablet (Oxy IR) Take 1-2 Tablets by mouth every 6 hours as needed for Pain,Severe (take 10 mg for pain greater than 7 out of 10.). 80 Tablet 0 Ondansetron HCl 4 MG Oral Tablet Take 1 Tablet by mouth every 6 hours as needed for Nausea. 30 Tablet 0 No current facility-administered medications for this visit. 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 Tobacco Use Smoking status: Former Current packs/day: 0.50 Average packs/day: 0.5 packs/day for 3.0 years (1.5 ttl pk-yrs) Types: Cigarettes Smokeless tobacco: Never Vaping Use Vaping status: Never Used Substance and Sexual Activity Alcohol use: Not Currently Drug use: No Sexual activity: Yes Partners: Female Other Topics Concern Service Yes Comment: [employer] Blood Transfusions Not Asked Caffeine Concern Not Asked Occupational Exposure Not Asked Hobby Hazards Not Asked Sleep Concern Not Asked Stress Concern Not Asked Weight Concern Not Asked Special Diet Not Asked Back Care Not Asked Exercise Not Asked Bike Helmet Not Asked Seat Belt Yes Self-Exams Not Asked Social History Narrative Born in [place] and lived in [facility] for 20 years, then 47 years later in life. Social Needs Financial Resource Strain: Low Risk (12/27/2024) Financial Resource Strain Do you have any trouble paying for your medications, or do you think you might in the future? (Adult - for ages 18 years and over): No Does your family have trouble paying for medicine? (Household - for ages 0-17 years): Not on file Food Insecurity: No Food Insecurity (01/03/2025) Food Insecurity Worried About Running Out of Food in the Last Year: Never true Ran Out of Food in the Last Year: Never true Do you need food for this week? (Adult - for ages 18 years and over): No Transportation Needs: No Transportation Needs (01/03/2025) Transportation Needs Do you have trouble getting a ride to medical visits or work? (Adult - for ages 18 years and over):Not on file Does your family have a hard time getting a ride to doctors’ visits? (Household - for ages 0-17 years): Not on file Has lack of transportation kept you from medical appointments, meetings, work, or from getting things needed for daily living? Check all that apply. (Adult - for ages 18 years and over): No Do you (or your family) have trouble finding or paying for a ride (transportation)? (Household - for ages 0-17 years): Not on file Social Connections: Socially Integrated (12/27/2024) Social Connections How often do you feel lonely or isolated from those around you? (Adult - for ages 18 years and over): Never Housing Stability: Low Risk (01/03/2025) Housing Stability Do you currently live in a chcf or have no steady place to sleep at night? (Adult - for ages 18 years and over): No Do you think you are at risk of becoming homeless? (Adult - for ages 18 years and over): Not on file Does your family worry about paying for your home or becoming homeless? (Household - for ages 0-17 years): Not on file Are you homeless or worried that you might be in the future? (Adult - for ages 18 years and over): No Are you (or your family) homeless or worried that you might be in the future? (Household - for ages0-17 years): Not on file Family History Problem Relation Name Age of Onset Heart Disorder Mother [place] Cancer Father Multiple myeloma Glaucoma Brother Heart Disorder Brother REVIEW OF SYSTEMS: General: No Fever, chills, night sweats HEENT: No change in visual acuity, blurred or double vision. No epistaxis, facial pain, nasal discharge or change in hearing. Denies dysphagia, no muscosal ulceration, or sores noted. Cardiovascular: No chest pain, RIOS, or palpitations Respiratory: No shortness of breath, cough, hemoptysis, or pleuritic chest pain Gastrointestinal: Episodes of abdominal pain, No nausea, vomiting, diarrhea, rectal pain or bleeding Genitourinary: Denies Hematuria or dysuria Musculoskeletal: No bone pain Psychiatric: No vegetative signs of depression Endocrine: No symptoms of hypothyroidism or hyperglycemia Hematologic: No bleeding or lymph nodes noted As mentioned above, all other systems were reviewed in full and are unremarkable. Review of patient's allergies indicates: Allergen Reactions Environmental [Pollen] Hay fever per patient PHYSICAL EXAMINATION: General Appearance: Weak appearing patient in no acute distress, PS=2 There were no vitals taken for this visit. Vitals were reviewed. HEENT: No oral or pharyngeal masses, ulceration or thrush noted, no sinus tenderness. Neck is supple with no thyromegaly or JVD noted. Lymph Nodes: No lymphadenopathy noted in the occipital, pre and post auricular, cervical, supra andinfraclavicular, axillary, epitrochlear, inguinal, and popliteal region. Lungs/Thorax: Clear to auscultation, no accessory muscles of respiration being used. Heart: Regular rate and rhythm, normal S1, S2. Abdomen: Soft, generalized tenderness, bowel sounds present, no appreciable hepatosplenomegaly, no palpable masses Extremeties: Good pulses bilaterally, no peripheral edema. Skin: Normal skin tone with no rash, petechiae, ecchymosis noted. Musculoskeletal: No pain on palpation over bony prominence, no edema, no evidence of gout, no jointor bony deformity ASSESSMENT: 84 year old, male with with history of chronic diastolic failure, atrial fibrillation/flutter on warfarin, hypertension, hyperlipidemia, coronary artery disease status post CABG in 1990 and [place] s/p PCI x3 stents in 2011 referred with a diagnosis of metastatic pancreatic cancer. He initially presented with complaint of generalized weakness, fatigue, abdominal pain and weight loss. large infiltrative pancreatic head/uncinate process mass likely represents primary adenocarcinoma of the pancreas causing obstruction with dilation of the pancreatic and common bile ducts, additionally, there is involvement of the duodenum with vascular involvement, subcentimeter abdominal lymph nodes should be evaluated on follow-up to exclude lymphatic metastasis, right basilar 1.3 cm solid nodule. Patient was subsequently transferred to [facility] for further management. He had ERCP and placement with stent. He also had episode of small-bowel obstruction and und erwent placement of the stent with improvement in the symptoms. FNA from the pancreatic mass is suspicious for adenocarcinoma. He also had elevated CA 19-9 level. Based on the elevated CA 19-9 level, CT scan finding, endoscopic ultrasound finding, patient most likely has metastatic pancreatic cancer with the elevated CA 19-9 level. He is very weak and fatiguedwith poor appetite. He was seen by the surgical team and because of the advanced disease he is not a surgical candidate. Discussed with the patient and in detail about diagnosis and prognosis and reviewed all the available blood tests, CT scan finding and pathology reports with them. After detailed discussion we decided to continue monitor the patient clinically and re-evaluate him in 2 weeks. I will also request a blood tests and PET scan as a baseline. Patient has appointment with the Palliative Care on 01/19/2025 and I will request to change the appointment earlier. PLAN: As above. He will return clinic for follow-up in 2 weeks with CBC, CMP, CA 19-9 level and the PET scan. Further management will depend on his overall performance status. The patient voiced understanding of all of the above. All questions and concerns were addressed in an apparently satisfactory manner. Niya Nicole MD (This note was completed using the dictation program Fluency Direct. As such, there may be misspellings, word substitutions, or other variations that should not change the essence of the clinical content of this encounter note. If there is need for further clarification, please direct questions to me.) documented in this encounter Nursing Notes * Radha Dan CMA - 01/10/2025 3:04 PM EDT Patient identifed by name and birthdate Do you have any concerns about pain management for today's visit? Yes. Patient instructed to discuss pain concerns with provider during the visit today Living Will or Advance Directive for Health Care as noted on the problem list. [facility] is a way you can talk to your provider on line through e-mail. Would you like to sign up? I can activate it for you? ALREADY ACTIVE Filed Vitals: 01/10/25 1503 BP: 98/62 Pulse: 82 Temp: 36.4 °C (97.5 °F) TempSrc: Oral SpO2: 99% Weight: 52.1 kg (114 lb 14.4 oz) Height: 1.619 m (5' 3.75") Patient was instructed to not get up on the exam table/exam chair until directed and assisted by their provider; patient is to remain seated in the chair/ wheelchair/ exam table/ exam chair for fall prevention and safety reasons. Patient is aware to have assistance to step down off exam table/exam chair with personnel. Patient voiced full comprehension of instructions. Patient states that he is lightheaded feels off balanced. No dizziness or shortness of breathe. documented in this encounter Miscellaneous Notes * Oncology Pathways Update - Niya Nicole MD - 01/10/2025 3:18 PM EDT START ON PATHWAY REGIMEN - Pancreatic Adenocarcinoma [id number]: Gemcitabine 1,000 mg/m2 D1, 8, 15 + Cisplatin 25 mg/m2 D1, 8, 15 q28 Days Until Progression or Toxicity A cycle is every 28 days: Cisplatin 25 mg/m2 IV once daily on days 1, 8, and 15 Gemcitabine 1,000 mg/m2 IV once daily on days 1, 8, and 15 Always confirm dose/schedule in your pharmacy ordering system Citations: -Josh G, Shelton R, Jyoti Pearson, et al. Randomized phase III trial of gemcitabine plus cisplatin compared with single-agent gemcitabine as first-line treatment of patients with advanced pancreatic cancer: the GIP-1 study. J Clin Oncol. 2009Nov 30;28(10):1645-51. URL: https://www.ncbi.nlm.nih.gov/pubmed/97856481 -Tammi Corado, [place] Cr, Suzi F, et al. Randomized phase III trial of gemcitabine plus cisplatin compared with gemcitabine alone in advanced pancreatic cancer. J Clin Oncol. 2005Apr 20;24(24):3942-52. URL: https://www.ncbi.nlm.nih.gov/pubmed/00071489 Patient Characteristics: Metastatic Disease, First Line, PS = 0,1, BRCA1/2 or PALB2 Mutation Present Therapeutic Status: Metastatic Disease Line of Therapy: First Line ECOG Performance Status: 1 BRCA1/2 Mutation Status: Present PALB2 Mutation Status: Absent Intent of Therapy: Non-Curative / Palliative Intent, Discussed with Patient * Oncology Pathways Notification - Niya Nicole MD - 01/10/2025 3:18 PM EDT A new patient decision has been made in [facility]Path. Details of this patient have been provided below: Patient Information: Name: Andrade Mcfarlane : 1940 Provider Name: Niya Nicole Disease: Pancreatic Adenocarcinoma Pathway Followed: Pancreatic Adenocarcinoma, Metastatic Disease, First Line, PS = 0,1, BRCA1/2 or PALB2 Mutation Present Patient Characteristics: Metastatic Disease, First Line, PS = 0,1, BRCA1/2 or PALB2 Mutation Present Therapeutic Status: Metastatic Disease Line of Therapy: First Line ECOG Performance Status: 1 BRCA1/2 Mutation Status: Present PALB2 Mutation Status: Absent Intent of Therapy: Non-Curative / Palliative Intent, Discussed with PatientTreatment Details: START ON PATHWAY REGIMEN [id number]: Gemcitabine 1,000 mg/m2 D1, 8, 15 + Cisplatin 25 mg/m2 D1, 8, 15 q28 Days Until Progression or Toxicity A cycle is every 28 days: Cisplatin 25 mg/m2 IV once daily on days 1, 8, and 15 Gemcitabine 1,000 mg/m2 IV once daily on days 1, 8, and 15 Always confirm dose/schedule in your pharmacy ordering system Citations: -Josh G, Shelton R, Jyoti Pearson, et al. Randomized phase III trial of gemcitabine plus cisplatin compared with single-agent gemcitabine as first-line treatment of patients with advanced pancreatic cancer: the GIP-1 study. J Clin Oncol. 2010 Nov 30;28(10):1645-51. URL: https://www.ncbi.nlm.nih.gov/pubmed/89062317 -Tammi Corado, [place] Cr, Suzi F, et al. Randomized phase III trial of gemcitabine plus cisplatin compared with gemcitabine alone in advanced pancreatic cancer. J Clin Oncol. 2005Apr 20;24(24):3948-52. URL: https://www.ncbi.nlm.nih.gov/pubmed/46595732 documented in this encounter Plan of Treatment Upcoming Encounters Date Type Department Care Team (Late st Contact Info) Description 01/14/2025 5:50 PM EDT Anticoagulation Pharmacy, [facility] [place] [address] [facility] [place] [address] Pharmacist1, [facility] [address] [facility] [place] [address] 01/17/2025 11:00 AM EDT Office Visit Family Practice [facility] [address] [place], [place] [address] Luis Espinoza, [address] [place], [place] [address] 01/19/2025 10:00 AM EDT Office Visit Palliative Medicine [facility] [address] [place], [place] [id number] Fanta Edwards MD [address] [place] [address] [place] [address] 01/25/2025 9:45 AM EDT Imaging Radiology [address] [place] [phone] 02/01/2025 11:00 AM EDT Office Visit Hematology/Oncology [facility] [place] [address] [place], [place] [phone] Niya Nicole MD [address] [place], [place] [address] 03/10/2025 8:20 AM EDT Office Visit Dermatology [facility] [place] [address] [place], [place] [address] Kandi Rubalcava PA-C [address] [place], [place] [address] 03/25/2025 10:20 AM EDT Office Visit Family Practice [facility] [place] [address] [place] [address] Luis Espinoza, [address] [place], [place] [address] 04/06/2025 3:30 PM EDT Office Visit Cardiology, [facility] [address] [place] [phone] Florida Martinez IV, MD [address] [place] [address] 06/29/2025 2:00 PM EDT Office Visit Nephrology, [facility] [address] [place], [place] [address] Aravind De La O MD [address] [place] [address] 08/15/2025 9:20 AM EST Office Visit Family Practice [facility] [place] [address] [place], [place] [address] Luis Espinoza DO 200 [facility] [place] [address] 10/24/2025 11:00 AM EST Office Visit Cardiology, [facility] [address] [place] [phone] Heidi Hitchcock PA-C [address] [place] [address] Scheduled Orders Name Type Priority Associated Diagnoses Orde r Schedule PET CT SKULL BASE TO MID-THIGH FDG Medical Imaging Routine Malignant neoplasm of pancreas, unspecified location of malignancy (HCC) Abnormal findings on diagnostic imaging of liver and biliary tract Expected: 01/24/2025, Expires: 03/15/2025 CBC WITH WBC DIFFERENTIAL Lab Routine Malignant neoplasm of pancreas, unspecified location of malignancy (HCC) Expected: 01/24/2025, Expires: 03/15/2025 COMPREHENSIVE METABOLIC PANEL Lab Routine Malignant neoplasm of pancreas, unspecified location of malignancy (HCC) Expected: 01/24/2025, Expires: 03/15/2025 CA 19-9 Lab Routine Malignant neoplasm of pancreas, unspecified location of malignancy (HCC) Expected: 01/24/2025, Expires: 03/15/2025 Health Maintenance Due Date Last Done Comments [...] this encounter Medical Devices Implanted Type Area Generating Station Mechanic Device Identifier Shelf Expiration Date Model / Serial / Lot Clip Quick 2.8mm 230cm - [id number] Implanted:Qty: 1 on 08/19/2022 by Jojo Pearson MD at ENDOSCOPY [facility] [employer] 12/29/2024 HX-202UR.A / / 25K Clip Quick 2.8mm 230cm - [id number] Implanted:Qty: 1 on 08/19/2022 by Jojo Pearson MD at ENDOSCOPY [facility] [employer] 12/29/2024 HX-202UR.A / / 25K Clip Quick 2.8mm 230cm - [id number] Implanted:Qty: 1 on 08/19/2022 by Jojo Pearson MD at ENDOSCOPY [facility] [employer] 12/29/2024 HX-202UR.A / / 25K Clip Quick 2.8mm 230cm - [id number] Implanted:Qty: 1 on 08/19/2022 by Jojo Pearson MD at ENDOSCOPY [facility] [employer] 12/29/2024 HX-202UR.A / / 25K Clip Quick 2.8mm 230cm - [id number] Implanted:Qty: 1 on 08/19/2022 by Jojo Pearson MD at ENDOSCOPY [facility] [employer] 12/29/2024 HX-202UR.A / / 25K Clip Quick 2.8mm 230cm - [id number] Implanted:Qty: 1 on 08/19/2022 by Jojo Pearson MD at ENDOSCOPY [facility] [employer] 12/29/2024 HX-202UR.A / / 25K Stent [employer] [id number] - [id number] Implanted:Qty: 1 on 01/05/2025 by Jay Newman DO at ENDOSCOPY [facility] [employer] : ENDOSCOPY [id number] 09/09/2025 [id number] / / [id number] documented as of this encounter Visit Diagnoses Diagnosis Malignant neoplasm of pancreas, unspecified location of malignancy (HCC)- Primary Abnormal findings on diagnostic imaging of liver and biliary tract documented in this encounter Advance Directives Documents on File Type Date Recorded 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
--- OUTSIDE RECORDS SUMMARY | 2025-01-16 12:13 | External Medical Summary | Summary of Care ---
Author Name Unknown Organization [facility] Address [address] [place] [address] Phone [phone] Care Team Providers Care Wellness Program Administrator Name Role Phone DelilahLuis alvarez Shaye AMADO Primary Care Provider Reason for Visit * Reason Onset Date Comments Precert Future 01/11/2025 Cisplatin, gemza r Encounter Details Date Type Department Care Team (Late st Contact Info) Description 01/11/2025 Telephone Hematology/Oncology Treatment, [place] [address] [place] [phone] Niya Nicole MD [address] [place] [address] Precert Future (Cisplatin, gemzar) Allergies Active Allergy Reactions Criticality Noted Date [...] Take 1 Capsule by mouth at bedtime. Active Timolol Hemihydrate 0.5 % Ophthalmic Solution [...] - 2014 Coronary artery disease invo lving [place] coronary artery of [place] heart without angina pectoris 11/19/2016 History of [...] 30 Mcg, IM, 12 yrs and above (Shopalytic) 11/15/2022 H1N1 2009 Influenza, IM 09/04/2009 HEP [...] No 12/27/2024 Does the household have a [facility] source of income? 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 No beacon plan entered. Bonnie: please place "new oncology order" so that beacon plan can be built. Thanks! documented in this encounter Plan of Treatment Upcoming Encounters Date Type Department Care Team (Late st Contact Info) Description 01/12/2025 10:00 AM EDT Office Visit Palliative Medicine [facility] [place] 200 [facility] [place] [phone] Fanta Edwards MD [address] [place] [address] [place] [id number] 01/14/2025 5:50 PM EDT Anticoagulation Pharmacy, [facility] [place] 200 [facility] [place] [address] Pharmacist1, [facility] 200 [facility] [place] [address] 01/17/2025 11:00 AM EDT Office Visit [facility] [address] [place], [place] [address] Luis Espinoza, DO [address] [place] [address] 01/25/2025 9:45 AM EDT Imaging Radiology [address] [place] [phone] 02/01/2025 11:00 AM EDT Office Visit Hematology/Oncology [facility] [address] [place], [place] [phone] Niya Nicole MD [address] [place] [address] 03/10/2025 8:20 AM EDT Office Visit Dermatology [facility] [address] [place] [address] Kandi Rubalcava PA-C [address] [place], [place] [address] 03/25/2025 10:20 AM EDT Office Visit [facility] [address] [place] [address] Luis Espinoza, DO [address] [place], [place] [address] 04/06/2025 3:30 PM EDT Office Visit Cardiology, [facility] [address] [place] [phone] Florida Martinez IV, MD [address] [place] [address] 06/29/2025 2:00 PM EDT Office Visit Nephrology, [facility] [address] [place] [address] Aravind De La O MD [address] [place] [address] 08/15/2025 9:20 AM EST Office Visit Family Practice [facility] 200 [facility] [place] [address] Luis Espinoza DO [address] [facility] [place] [address] 10/24/2025 11:00 AM EST Office Visit Cardiology, [facility] [address] [place] [phone] Heidi Hitchcock PA-C [address] [place] [address] Health Maintenance Due Date Last Done Comments [...] this encounter Medical Devices Implanted Type Area Compliance Consultant Device Identifier Shelf Expiration Date Model / Serial / Lot Clip Quick 2.8mm 230cm - [id number] Implanted:Qty: 1 on 08/19/2022 by Jojo Pearson MD at ENDOSCOPY [facility] Colon [employer] 12/29/2024 HX-202UR.A / / 25K Clip Quick 2.8mm 230cm - [id number] Implanted:Qty: 1 on 08/19/2022 by Jojo Pearson MD at ENDOSCOPY [facility] Colon [employer] 12/29/2024 HX-UR.A / / 25K Clip Quick 2.8mm 230cm - [id number] Implanted:Qty: 1 on 08/19/2022 by Jojo Pearson MD at ENDOSCOPY [facility] Colon [employer] 12/29/2024 HX-UR.A / / 25K Clip Quick 2.8mm 230cm - [id number] Implanted:Qty: 1 on 08/19/2022 by Jojo Pearson MD at ENDOSCOPY [facility] [employer] 12/29/2024 HX-UR.A / / 25K Clip Quick 2.8mm 230cm - [id number] Implanted:Qty: 1 on 08/19/2022 by Jojo Pearson MD at ENDOSCOPY [facility] [employer] 12/29/2024 HX-UR.A / / 25K Clip Quick 2.8mm 230cm - [id number] Implanted:Qty: 1 on 08/19/2022 by Jojo Pearson MD at ENDOSCOPY [facility] [employer] 12/29/2024 HX-UR.A / / 25K Stent [employer] [id number] - [id number] Implanted:Qty: 1 on 01/05/2025 by Jay Newman DO at ENDOSCOPY [facility] [employer] : ENDOSCOPY [id number] 09/09/2025 [id number] / / [id number] documented as of this encounter Advance Directives Documents on File Type Date Recorded 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
--- OUTSIDE RECORDS SUMMARY | 2025-01-16 12:14 | External Medical Summary ---
Author Name Unknown Address Unknown Organization K01:[facility] [address] [place] [address] Laboratory Report Ordering Provider Test Date Status ALEJANDRO REECE 01/06/2025 04:10:00 Final Observation Date Value Abnormality Reference (Units ) Status Magnesium 01/06/2025 04:10:00 2.1 1.5-2.6 (m g/dL) Final Performing Location [facility] - [address] [place] [address]
--- OUTSIDE RECORDS SUMMARY | 2025-01-16 12:14 | External Medical Summary ---
Author Name Unknown Address Unknown Organization [id number]:LAB[facility]ATORY [facility] - [facility] [address] [facility] [address] [place] [address] Laboratory Report Ordering Provider Test Date Status VA SANCHEZ 01/06/2025 04:10:00 Final Observation Date Value Abnormality Reference (Units ) Status WBC, Total 01/06/2025 04:10:00 16.14 Above high normal 4.00-10.80 (K/uL) Final RBC 01/06/2025 04:10:00 4.57 4.50-5.25 (M/uL) Final Hemoglobin 01/06/2025 04:10:00 13.6 Below low normal 14.0-16.8 (g/dL) Final HCT 01/06/2025 04:10:00 42.5 40.0-48.4 (%) Final MCV 01/06/2025 04:10:00 93.0 82.0-99.5 (fL) Final MCH 01/06/2025 04:10:00 29.8 27.0-34.0 (pg) Final MCHC 01/06/2025 04:10:00 32.0 32.0-36.0 (g/dL) Final RDW 01/06/2025 04:10:00 13.6 11.5-15.5 (%) Final Platelets 01/06/2025 04:10:00 470 Above high normal 140-400 (K/uL) Final MPV 01/06/2025 04:10:00 10.4 6.6-11.1 (fL) Final Nucleated erythrocytes/100 leukocytes [Ratio] in Blood by Automated count 01/06/2025 04:10:00 0 <=0 (/100 WBCs) Final Performing Location LABORATORY [facility] - [address] [place] [address]
--- OUTSIDE RECORDS SUMMARY | 2025-01-16 12:14 | External Medical Summary ---
Author Name Unknown Address Unknown Organization K01:[facility] [place] [address] [facility] [address] [place] [address] Laboratory Report Ordering Provider Test Date Status VA SANCHEZ 01/05/2025 04:16:00 Final Observation Date Value Abnormality Reference (Units ) Status BUN 01/05/2025 04:16:00 21 Above high normal 6-20 (mg/dL) Final Creatinine 01/05/2025 04:16:00 1.0 0.6-1.2 (mg/dL) Final Glomerular filtration rate/1.73 sq M.predicted [Volume Rate/Area] in Serum, Plasma or Blood by Creatinine-based formula (CKD-EPI) 01/05/2025 04:16:00 71 >=60 (mL/min) Final eGFR is calculated based on the CKD-EPI 2020 equation. Sodium 01/05/2025 04:16:00 141 135-146 (m mol/L) Final Potassium 01/05/2025 04:16:00 3.7 3.5-5.1 (m mol/L) Final Cl 01/05/2025 04:16:00 100 98-107 (mm ol/L) Final CO2 01/05/2025 04:16:00 28 22-32 (mmo l/L) Final Anion gap 01/05/2025 04:16:00 13 7-15 (mmol /L) Final Glucose 01/05/2025 04:16:00 173 Above high normal 70 -120 (mg/dL) Final Calcium 01/05/2025 04:16:00 8.7 8.4-10.2 ( mg/dL) Final Performing Location [facility] [place] [address] [place] [address]
--- OUTSIDE RECORDS SUMMARY | 2025-01-16 12:14 | External Medical Summary ---
Author Name Unknown Address Unknown Organization K01:[facility] [place] - [address] [facility] [place] [address] Laboratory Report Ordering Provider Test Date Status VA SANCHEZ 01/07/2025 09:11:00 Final Observation Date Value Abnormality Reference (Units ) Status WBC, Total 01/07/2025 09:11:00 17.50 Above high normal 4.00-10.80 (K/uL) Final RBC 01/07/2025 09:11:00 5.01 4.50-5.25 (M/uL) Final Hemoglobin 01/07/2025 09:11:00 15.1 14.0-16.8 (g/dL) Final HCT 01/07/2025 09:11:00 46.8 40.0-48.4 (%) Final MCV 01/07/2025 09:11:00 93.4 82.0-99.5 (fL) Final MCH 01/07/2025 09:11:00 30.1 27.0-34.0 (pg) Final MCHC 01/07/2025 09:11:00 32.3 32.0-36.0 (g/dL) Final RDW 01/07/2025 09:11:00 13.4 11.5-15.5 (%) Final Platelets 01/07/2025 09:11:00 543 Above high normal 140-400 (K/uL) Final MPV 01/07/2025 09:11:00 10.4 6.6-11.1 (fL) Final Nucleated erythrocytes/100 leukocytes [Ratio] in Blood by Automated count 01/07/2025 09:11:00 0 <=0 (/100 WBCs) Final Performing Location LABORATORY [facility] - [address] [place] [address]
--- OUTSIDE RECORDS SUMMARY | 2025-01-16 12:14 | External Medical Summary ---
Author Name Unknown Address Unknown Organization K01:[facility] [address] [facility] [address] [facility] [address] Laboratory Report Ordering Provider Test Date Status VA SANCHEZ 01/04/2025 04:25:00 Final Observation Date Value Abnormality Reference (Units ) Status BUN 01/04/2025 04:25:00 31 Above high normal 6-20 (mg/dL) Final Creatinine 01/04/2025 04:25:00 1.1 0.6-1.2 (mg/dL) Final Glomerular filtration rate/1.73 sq M.predicted [Volume Rate/Area] in Serum, Plasma or Blood by Creatinine-based formula (CKD-EPI) 01/04/2025 04:25:00 64 >=60 (mL/min) Final eGFR is calculated based on the CKD-EPI 2020 equation. Sodium 01/04/2025 04:25:00 140 135-146 (m mol/L) Final Potassium 01/04/2025 04:25:00 3.9 3.5-5.1 (m mol/L) Final Cl 01/04/2025 04:25:00 97 Below low normal 98- 107 (mmol/L) Final CO2 01/04/2025 04:25:00 25 22-32 (mmo l/L) Final Anion gap 01/04/2025 04:25:00 18 Above high normal 7- 15 (mmol/L) Final Glucose 01/04/2025 04:25:00 83 70-120 (mg /dL) Final Calcium 01/04/2025 04:25:00 8.6 8.4-10.2 ( mg/dL) Final Performing Location [facility] [place] [address] [place] [address]
--- OUTSIDE RECORDS SUMMARY | 2025-01-16 12:14 | External Medical Summary ---
Author Name Unknown Address Unknown Organization K01:[facility] [place] - [address] [place] [address] Laboratory Report Ordering Provider Test Date Status CHEVYALEJANDRO 01/07/2025 09:11:00 Final Warfarin Therapy
INR: 2 .0-3.0 conventional anticoagulation
INR: 2.5- 3.5 high intensity anticoagulation Observation Date Value Abnormality Reference (Units ) Status PT 01/07/2025 09:11:00 14.8 11.6-15.2 (seconds) Final INR 01/07/2025 09:11:00 1.1 0.8-1.2 Final Performing Location [facility] [place] - [address] [place] [address]
--- OUTSIDE RECORDS SUMMARY | 2025-01-16 12:14 | External Medical Summary ---
Author Name Unknown Address Unknown Organization K01:[facility] [place] [address] [facility] [address] Laboratory Report Ordering Provider Test Date Status VA SANCHEZ 01/04/2025 04:25:00 Final Observation Date Value Abnormality Reference (Units ) Status WBC, Total 01/04/2025 04:25:00 14.11 Above high normal 4.00-10.80 (K/uL) Final RBC 01/04/2025 04:25:00 4.71 4.50-5.25 (M/uL) Final Hemoglobin 01/04/2025 04:25:00 14.6 14.0-16.8 (g/dL) Final HCT 01/04/2025 04:25:00 44.3 40.0-48.4 (%) Final MCV 01/04/2025 04:25:00 94.1 82.0-99.5 (fL) Final MCH 01/04/2025 04:25:00 31.0 27.0-34.0 (pg) Final MCHC 01/04/2025 04:25:00 33.0 32.0-36.0 (g/dL) Final RDW 01/04/2025 04:25:00 13.7 11.5-15.5 (%) Final Platelets 01/04/2025 04:25:00 453 Above high normal 140-400 (K/uL) Final MPV 01/04/2025 04:25:00 10.0 6.6-11.1 (fL) Final Nucleated erythrocytes/100 leukocytes [Ratio] in Blood by Automated count 01/04/2025 04:25:00 0 <=0 (/100 WBCs) Final Performing Location [facility] [place] [address] [place] [address]
--- OUTSIDE RECORDS SUMMARY | 2025-01-16 12:14 | External Medical Summary ---
Author Name Unknown Address Unknown Organization K01:[facility] [place] [address] [place] [address] Laboratory Report Ordering Provider Test Date Status ALEJANDRO REECE 01/05/2025 04:16:00 Final Warfarin Therapy
INR: 2 .0-3.0 conventional anticoagulation
INR: 2.5- 3.5 high intensity anticoagulation Observation Date Value Abnormality Reference (Units ) Status PT 01/05/2025 04:16:00 16.7 Above high normal 11 .6-15.2 (seconds) Final INR 01/05/2025 04:16:00 1.3 Above high normal 0. 8-1.2 Final Performing Location [facility] [place] [address] [place] [address]
--- OUTSIDE RECORDS SUMMARY | 2025-01-16 12:14 | External Medical Summary ---
Author Name Unknown Address Unknown Organization K01:[facility] [place] [address] [place] [address] Laboratory Report Ordering Provider Test Date Status VA SANCHEZ 01/07/2025 09:11:00 Final Observation Date Value Abnormality Reference (Units ) Status BUN 01/07/2025 09:11:00 15 6-20 (mg/dL) Final Creatinine 01/07/2025 09:11:00 1.0 0.6-1.2 (mg/dL) Final Glomerular filtration rate/1.73 sq M.predicted [Volume Rate/Area] in Serum, Plasma or Blood by Creatinine-based formula (CKD-EPI) 01/07/2025 09:11:00 75 >=60 (mL/min) Final eGFR is calculated based on the CKD-EPI 2020 equation. Sodium 01/07/2025 09:11:00 141 135-146 (m mol/L) Final Potassium 01/07/2025 09:11:00 3.9 3.5-5.1 (m mol/L) Final Cl 01/07/2025 09:11:00 101 98-107 (mm ol/L) Final CO2 01/07/2025 09:11:00 26 22-32 (mmo l/L) Final Anion gap 01/07/2025 09:11:00 14 7-15 (mmol /L) Final Glucose 01/07/2025 09:11:00 168 Above high normal 70 -120 (mg/dL) Final Calcium 01/07/2025 09:11:00 9.1 8.4-10.2 ( mg/dL) Final Performing Location [facility]ORY [facility] [place] - [address] [place] [address]
--- OUTSIDE RECORDS SUMMARY | 2025-01-16 12:14 | External Medical Summary ---
Author Name Unknown Address Unknown Organization K01:[facility] - [address] [place] [address] Laboratory Report Ordering Provider Test Date Status ALEJANDRO REECE 01/05/2025 04:16:00 Final Observation Date Value Abnormality Reference (Units ) Status Magnesium 01/05/2025 04:16:00 2.3 1.5-2.6 (m g/dL) Final Performing Location [facility] - [address] [place] [address]
--- OUTSIDE RECORDS SUMMARY | 2025-01-16 12:14 | External Medical Summary | Summary of Care ---
Author Name Unknown Organization [facility] Address [address] [place] [address] Phone [phone] Care Team Providers Care Poultry Husbandry Teacher Name Role Phone Francisco Espinozae Shaye AMADO Primary Care Provider [phone] Reason for Visit * Reason Comments Hospital Follow-Up Encounter Details Date Type Department Care Team (Latest Contact Info) Description 01/07/2025 5:10 PM EDT Anticoagulation Pharmacy, [facility] [address] [place] [address] Pharmacist1, [facility] [address] [facility] [place] [address] Chronic atrial fibrillation (HCC)*; Anticoagulation management encounter Allergies Active Allergy Reactions Criticality Noted Date Comments Pollen 08/13/2017 Hay fever per patient documented as of this encounter (statuses as of 01/07/2025) Medications aspirin 81 MG chewable tablet mornings [...] 10 MG Oral Tablet (Norvasc)Indicati ons:History of IA (myocardial infarction) TAKE 1 TABLET BY MOUTH [...] as of this encounter (statuses as of 01/07/2025) Active Problems Problem Noted Date Diagnosed Date [...] protocol Chronic atrial fibrillation 02/28/2020 History of IA (myocardial infarction) 05/23/2017 History of nonmelanoma skin cancer 04/22/2017 Overview (04/22/2017): 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 cheek - 2015 Hx of BCC on left cheek - 2014 Coronary artery disease invo lving [place] coronary artery of [place] heart without angina pectoris 11/19/2016 History of basal cell carcinoma of skin 05/24/20 15 documented as of this encounter (statuses as of 01/07/2025) Resolved Problems Problem Noted Date Diagnosed Date Resolved Date SBO (small bowel obstruction) 01/03/2025 01/07/2025 Generalized abdominal pain 01/03/2025 0 01/07/2025 Nausea 01/03/2025 01/07/2025 Anorexia 01/03/2025 01/07/2025 Prediabetes 12/09/2017 06/02/2018 Overview: Per Prediabetes protocol #1 Chronic atrial fibrillation 11/25/2017 12/01/2018 History of IA (myocardial infarction) 05/23/2017 05/23/2017 Paroxysmal atrial fibrillation 05/24/2015 10/04/2021 Bipolar disorder, in full re mission, most recent episode depressed 05/24/2015 02/12/2023 Atrial fibrillation and flutter 05/24/2015 S/P CABG (coronary artery bypass graft) 05/23/2017 IA (myocardial infarction) 0 05/23/2017 Overview (05/24/2015): 3 in 2011 - 3 stents and an ablation done Manic episode 11/19/2016 Bipolar disorder (manic depression) 05/24/2015 documented as of this encounter (statuses as of 01/07/2025) Immunizations Name Administration Dates Next Due COVID-19 mRNA, LNP-s, No Pre serve, 2-Dose Series (Moderna) 10/30/2020,09/27/2020 COVID-19, mRNA, LNP-s, PF, B ooster, 100mcg/0.5mg (Moderna) 07/04/2021 Covid-19, Mrna, Lnp-s, Pf, B ivalent, 30 Mcg, IM, 12 yrs and above ([employer]) 11/15/2022 H1N1 2009 Influenza, IM 09/04/2009 HEP [...] 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 INR on admission was 1.6. Coumadindoses starting 01/03 were: held entire stay. Patient was discharged 01/07 following INR of 1.1 with instructions to take Coumadin 2mg BY MOUTH DAILY FRIDAY, FRIDAY,FRIDAY AND 4mg ALL OTHER DAYS . . Component Latest Ref Rng 01/03/2025 01/05/2025 01/06/2025 01/07/2025 Prothrombin Time 11.6 - 15.2 seconds 19.4 (H) 16.7 (H) 16.0 (H) 14.8 INR 0.8 - 1.2 1.6 (H) 1.3 (H) 1.3 (H) 1.1 Call patient Friday to schedule INR. Maico Adams RPh, CACP, CDE Clinical Pharmacist Medication Therapy Management [facility] 01/07/2025, 12:23 PM documented in this encounter Plan of Treatment Upcoming Encounters Date Type Department Care Team (Late st Contact Info) Description 01/10/2025 5:50 PM EDT Anticoagulation Pharmacy, [facility] [address] [place] [address] Pharmacist1, [facility] [address] [place] [address] 01/18/2025 10:00 AM EDT Office Visit Hematology/Oncology [facility] [address] [place] [address] Niya Nicole MD [address] [place] [address] 01/19/2025 10:00 AM EDT Office Visit Palliative Medicine [facility] [address] [place] [address] Fanta Edwards MD [address] [place] [address] 03/10/2025 8:20 AM EDT Office Visit Dermatology [facility] [address] [place] [address] Kandi Rubalcava PA-C [address] [place] [address] 03/25/2025 10:20 AM EDT Office Visit Family Practice [facility] [address] [place] [address] Luis Espinoza, DO [address] [place] [address] 04/06/2025 3:30 PM EDT Office Visit Cardiology, [facility] [address] [place] [address] Florida Martinez IV, MD [address] [place] [address] 06/29/2025 2:00 PM EDT Office Visit Nephrology, [facility] [address] [place] [address] Aravind De La O MD [address] [place] [address] 08/15/2025 9:20 AM EST Office Visit Family Practice [facility] [place] [address] [place], [place] [address] Luis Espinoza DO [address] [place] [address] 10/24/2025 11:00 AM EST Office Visit Cardiology, [facility] [address] [place] [address] Heidi Hitchcock, PATunde [address] [place] [address] Health Maintenance Due Date Last Done Comments Adult Wellness Visit 10/04/2022 10/04/2021 COVID-19 Vaccine ( season) 2024 02/13/2024, 07/07/2023, 11/15/2022, Additional history exists CKD PHOS USE SMARTSET 34783 01/03/202612/2024, 01/03/2025, 11/26/2024, Additional history exists CKD HGB USE SMARTSET 32623 01/07/202601/07, 01/06/2025, 01/05/2025, Additional history exists DTap/Tdap Vaccines (3 - Td or Tdap) 12/26/2030 12/26/2020, 11/16/2010 Pneumococcal Vaccine: 50+ Years Completed 05/21/2016, 10/24/2009, 08/08/2004 Zoster Vaccines Completed 09/30/2018, 05/2018, 12/17/2011 Influenza [...] this encounter Medical Devices Implanted Type Area Speech Language Assistant Device Identifier Shelf Expiration Date Model / Serial / Lot Clip Quick 2.8mm 230cm - [id number] Implanted:Qty: 1 on 08/19/2022 by Jojo Pearson MD at ENDOSCOPY [facility] [employer] 12/29/2024 HX-UR.A / / 25K Clip Quick 2.8mm 230cm - [id number] Implanted:Qty: 1 on 08/19/2022 by Jojo Pearson MD at ENDOSCOPY [facility] [employer] 12/29/2024 HX-UR.A / / 25K Clip Quick 2.8mm 230cm - [id number] Implanted:Qty: 1 on 08/19/2022 by Jojo Pearson MD at ENDOSCOPY [facility] [employer] 12/29/2024 HX-UR.A / / 25K Clip Quick 2.8mm 230cm - [id number] Implanted:Qty: 1 on 08/19/2022 by Jojo Pearson MD at ENDOSCOPY [facility] [employer] 12/29/2024 HX-UR.A / / 25K Clip Quick 2.8mm 230cm - [id number] Implanted:Qty: 1 on 08/19/2022 by Jojo Pearson MD at ENDOSCOPY [facility] [employer] 12/29/2024 HX-UR.A / / 25K Clip Quick 2.8mm 230cm - [id number] Implanted:Qty: 1 on 08/19/2022 by Jojo Pearson MD at ENDOSCOPY [facility] [employer] 12/29/2024 HX-202UR.A / / 25K [employer] [id number] - [id number] Implanted:Qty: 1 on 01/05/2025 by Jay Newman DO at ENDOSCOPY [facility] [employer] : ENDOSCOPY [id number] 09/09/2025 [id number] / / [id number] documented as of this encounter Visit Diagnoses Diagnosis Chronic atrial fibrillation (HCC)- Primary Atrial fibrillation Anticoagulation management encounter Encounter for therapeutic drug monitoring documented in this encounter Advance Directives Documents on File Type Date Recorded 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
--- OUTSIDE RECORDS SUMMARY | 2025-01-16 12:14 | External Medical Summary ---
Author Name Unknown Address Unknown Organization [id number][facility] [place] [address] [place] [address] Laboratory Report Ordering Provider Test Date Status CHEVYALEJANDRO 01/06/2025 04:10:00 Final Warfarin Therapy
INR: 2 .0-3.0 conventional anticoagulation
INR: 2.5- 3.5 high intensity anticoagulation Observation Date Value Abnormality Reference (Units ) Status PT 01/06/2025 04:10:00 16.0 Above high normal 11 .6-15.2 (seconds) Final INR 01/06/2025 04:10:00 1.3 Above high normal 0. 8-1.2 Final Performing Location [facility] [address] [place] [address]
--- OUTSIDE RECORDS SUMMARY | 2025-01-16 12:14 | External Medical Summary ---
Author Name Unknown Address Unknown Organization [id number]:[facility] - [address] [place] [address] Laboratory Report Ordering Provider Test Date Status [facility] SANCHEZ 01/06/2025 04:10:00 Final Observation Date Value Abnormality Reference (Units ) Status BUN 01/06/2025 04:10:00 16 6-20 (mg/dL) Final Creatinine 01/06/2025 04:10:00 0.9 0.6-1.2 (mg/dL) Final Glomerular filtration rate/1.73 sq M.predicted [Volume Rate/Area] in Serum, Plasma or Blood by Creatinine-based formula (CKD-EPI) 01/06/2025 04:10:00 85 >=60 (mL/min) Final eGFR is calculated based on the CKD-EPI 2020 equation. Sodium 01/06/2025 04:10:00 139 135-146 (m mol/L) Final Potassium 01/06/2025 04:10:00 3.1 Below low normal 3.5 -5.1 (mmol/L) Final Cl 01/06/2025 04:10:00 99 98-107 (mm ol/L) Final CO2 01/06/2025 04:10:00 25 22-32 (mmo l/L) Final Anion gap 01/06/2025 04:10:00 15 7-15 (mmol /L) Final Glucose 01/06/2025 04:10:00 103 70-120 (mg /dL) Final Calcium 01/06/2025 04:10:00 8.4 8.4-10.2 ( mg/dL) Final Performing Location [facility] - [address] [place] [address]
--- OUTSIDE RECORDS SUMMARY | 2025-01-16 12:14 | External Medical Summary | Summary of Care ---
Author Name Unknown Organization [facility] Address [address] [place] [address] Phone [phone] Care Team Providers Care Revenue Liaison Name Role Phone Luis Espinoza DO Primary Care Provider [phone] Reason for Referral * Evaluate & Treat - Unlimited Visits (Within 10 days (routine)) - Authorized Specialty Diagnoses / Procedures Referred By Gayathri rios Referred To Contact Hematology/Oncology / Hematology Oncology Diagnoses Malignant neoplasm of head of pancreas (HCC) Sylvia Horta DO [address] [place] [address] Phone: tel: fax: Referral ID Status Reason Start Date Expiration Date Visits Requested Visits Authorized [id number] Authorized Specialty Services Required 12/31/2024 999 999 [...] (HCC) Sylvia Horta DO [address] [place] [address] Phone: tel: fax: Referral ID Status Reason Start Date Expiration Date Visits Requested Visits Authorized [id number] Authorized Specialty Services Required 12/31/2024 999 999 [...] Horta DO [address] [place] [id number] Test Results Allergies Active Allergy Reactions Criticality Noted Date Comments Pollen 08/13/2017 Hay fever per patient documented as of this encounter (statuses as of 01/03/2025) Medications aspirin 81 MG chewable tablet mornings Susp ended latanoprost (XALATAN) 0.005 % ophthalmic solution Instill 1 Drop into both eyes at bedtime. 1 drop, left eye only, bedtime Suspended Vitamin D 50 MCG (1999 UT) Oral Capsule Take 1 Capsule by mouth at bedtime. 1 Suspended Timolol Hemihydrate 0.5 % Ophthalmic Solution (Betimol) Instill 1 Drop into the left eye in the morning. 2 Suspended Meclizine HCl 25 MG Oral Tablet (Antivert) Take 1 Tablet by mouth 3 times a day as needed. Suspended Rosuvastatin Calcium 40 MG Oral Tablet (Crestor)Indicat ions:S/P CABG (coronary artery bypass graft),ST elevation myocardial infarction (STEMI), unspecified artery (HCC) TAKE ONE TABLET BY MOUTH EVERY EVENING WITH dinner 90 Tablet 3 4 Suspended Carvedilol 6.25 MG Oral Tablet (Coreg) Take 1 Tablet by mouth in the morning and 1 Tablet before bedtime. 180 Tablet 3 4 Suspended carBAMazepine ER 300 MG Oral Capsule Extended Release 12 Hour (Carbatrol) take 1 CAPSULE by mouth at bedtime 90 Capsule 3 5 Suspended Omeprazole 40 MG Oral Capsule Delayed Release (PriLOSEC)Indica tions:Abdominal pain, epigastric Take 1 Capsule by mouth in the morning. 1 hour before the first meal of the day. 40 Capsule 3 5 Suspended Fluorouracil 5 % External Cream Apply topically to affected area 2 times a day. Apply to forehead. 40 g 1 5 Suspended triamcinolone 0.1% / cerave 1:1 1:1 TOP cream Apply topically to affected area every 6 hours as needed for Itching (for itchy ankles/legs). Apply to ankles/legs Suspended Famotidine 20 MG Oral Tablet (Pepcid) Take 1 Tablet by mouth 2 times a day as needed for Heartburn or Other (stomach pain). Suspended Acetaminophen 325 MG Oral Tablet (Tylenol) Take 1 Tablet by mouth every 6 hours as needed for Other (stomach pain). Suspended traMADol HCl 50 MG Oral Tablet (Ultram) Take 1 Tablet by mouth every 6 hours as needed for Pain, Moderate or Pain, Severe. 20 Tablet 5 Suspended Warfarin Sodium 2 MG Oral Tablet (Coumadin)Indica tions:Chronic atrial fibrillation (HCC) TAKE 1 TABLET BY MOUTH DAILY FRIDAY, FRIDAY,Fri AND 2 TABLETS ALL OTHER DAYS OR DIRECTED BY COAG CLINIC Do not start before December 30, 2024. 132 Tablet 3 5 Suspended Lisinopril 20 MG Oral Tablet (Prinivil)Indica tions:S/P CABG (coronary artery bypass graft),ST elevation myocardial infarction (STEMI), unspecified artery (HCC) Take 1 Tablet by mouth 2 times a day with morning and evening meals. 90 Tablet 3 5 Suspended Polyethylene Glycol 3350 17 GM Oral Packet (Miralax) Take 1 Packet by mouth in the morning. 14 Each 5 Suspended Amoxicillin-Pot Clavulanate 875-125 MG Oral Tablet (Augmentin) Take 1 Tablet by mouth in the morning and 1 Tablet before bedtime. Do all this for 6 days. 12 Tablet 5 025 amLODIPine Besylate 10 MG Oral Tablet (Norvasc)Indicat ions:History of TN (myocardial infarction) TAKE 1 TABLET BY MOUTH EVERY MORNING 90 Tablet 3 5 Suspended Docusate Sodium 100 MG Oral Capsule (Colace) Take 1 Capsule by mouth in the morning and 1 Capsule before bedtime. Suspended oxyCODONE HCl 5 MG Oral Tablet (Oxy IR)Indications:O bstructive jaundice,Pancrea tic mass,Need for case management follow-up Take 1-2 Tablets by mouth every 6 hours as needed for Pain, Severe (take 10 mg for pain greater than 7 out of 10.). 80 Tablet 5 Suspended Ondansetron HCl 4 MG Oral TabletIndication s:Obstructive jaundice,Pancrea tic mass,Need for case management follow-up Take 1 Tablet by mouth every 6 hours as needed for Nausea. 30 Tablet 5 Suspended documented as of this encounter (statuses as of 01/03/2025) Active Problems Problem Noted Date Diagnosed Date SBO (small bowel obstruction) 01/03/2025 Palliative care encounter 01/03/2025 Goals of care, counseling/discussion 01/03/2025 Generalized abdominal pain 01/03/2025 Nausea 01/03/2025 Anorexia 01/03/2025 Elevated lipase 12/25/2024 Obstructive jaundice 12/24/2024 Malnutrition of moderate degree 12/23/2024 Pancreatic mass 12/22/2024 Stage 3b chronic [...] - 2014 Coronary artery disease invo lving [place] coronary artery of [place] heart without angina pectoris 11/19/2016 History of basal cell carcinoma of skin 05/24/20 15 documented as of this encounter (statuses as of 01/03/2025) Resolved Problems Problem Noted Date Diagnosed Date Resolved Date Prediabetes 12/09/2017 06/02/2018 Overview: Per Prediabetes protocol [...] as of this encounter (statuses as of 01/03/2025) Immunizations Name Administration Dates Next Due COVID-19 [...] 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 * Telephone Encounter - Sylvia Horta DO - 01/03/2025 12:05 PM EDT I believe the patient will need to see Medical Oncology as well. Can we help attain an appointment with them * Telephone Encounter - Kristine Whittington RN - 12/31/2024 3:33 PM EDT Called and spoke with pt's . Scheduled for 01/07/25 in [facility]. She is upset because pt is symptomatic, however Dr. Campa is in the OR until 01/06/25 which I did offer, however she chose to go to [facility]. Pt has not yet had staging [...] and fibromuscular tissue with few glands with [id number]-[id number] atypia, and abundant eosinophils with few neutrophils, [...] Care Team (Late st Contact Info) Description 01/07/2025 11:00 AM EDT Office Visit General Surgery Silvano Reeves [address] [place] [address] [place] [address] Robert Campa MD [address] [place] [address] 03/10/2025 8:20 AM EDT Office Visit Dermatology [facility] [address] [place] [address] Kandi Rubalcava PA-C [address] [place] [address] 03/25/2025 10:20 AM EDT Office Visit [facility] [address] [place] [address] Luis Espinoza, DO [address] [place] [address] 04/06/2025 3:30 PM EDT Office Visit Cardiology, [facility] [address] [place] [address] Florida Martinez IV, MD [address] [place] [address] 06/29/2025 2:00 PM EDT Office Visit Nephrology, [facility] [address] [place] [address] Aravind De La O MD [address] [place] [address] 08/15/2025 9:20 AM EST Office Visit [facility] [address] [place] [address] Luis Espinoza, DO [address] [place] [address] 10/24/2025 11:00 AM EST Office Visit Cardiology, [facility] [address] [place] [address] Heidi Hitchcock PA-C [address] [place] [address] Scheduled Orders Name Type Priority Associated Diagnoses [...] 2024 02/13/2024, 07/07/2023, 11/15/2022, Additional history exists Albumin/Creatinine Ratio 06/01/2025 06/01/2024, 07 GFR 07/06/2025 01/03/2025, 0 12/2024, 12/26/2024, Additional history exists CKD HGB USE SMARTSET 24565 01/03/202601/03, 12/29/2024, 12/29/2024, Additional history exists CKD PHOS USE SMARTSET 15487 01/03/20260 12/2024, 01/03/2025, 11/26/2024, Additional history exists DTap/Tdap Vaccines (3 - Td or Tdap) 12/26/2030 12/26/2020, 11/16/2010 Pneumococcal Vaccine: 50+ Years Completed 05/21/2016, 10/24/2009, 08/08/2004 Zoster Vaccines Completed 09/30/2018, 11/0 05/2018, 12/17/2011 Influenza Vaccine (FLU shot) Completed , 07/30/2023, 07/05/2022, Additional history exists HPV (Gardasil) Vaccine Aged [...] this encounter Medical Devices Implanted Type Area Weight Control Engineer Device Identifier Shelf Expiration Date Model / Serial / Lot Clip Quick 2.8mm 230cm - [id number] Implanted:Qty: 1 on 08/19/2022 by Jojo Pearson MD at ENDOSCOPY [facility] [employer] 12/29/2024 HX-UR.A / / 25K Clip Quick 2.8mm 230cm - [id number] Implanted:Qty: 1 on 08/19/2022 by Jojo Pearson MD at ENDOSCOPY [facility] [employer] 12/29/2024-UR.A / / 25K Clip Quick 2.8mm 230cm - [id number] Implanted:Qty: 1 on 08/19/2022 by Jojo Pearson MD at ENDOSCOPY [facility] [employer] 12/29/2024 HX-UR.A / / 25K Clip Quick 2.8mm 230cm - [id number] Implanted:Qty: 1 on 08/19/2022 by Jojo Pearson MD at ENDOSCOPY [facility] [employer] 12/29/2024-UR.A / / 25K Clip Quick 2.8mm 230cm - [id number] Implanted:Qty: 1 on 08/19/2022 by Jojo Pearson MD at ENDOSCOPY [facility] [employer] 12/29/2024 HX-UR.A / / 25K Clip Quick 2.8mm 230cm - [id number] Implanted:Qty: 1 on 08/19/2022 by Jojo Pearson MD at ENDOSCOPY [facility] [employer] 12/29/2024 HX-UR.A / / 25K documented as of this encounter Visit Diagnoses Diagnosis Malignant neoplasm of head of pancreas (HCC)- Primary Malignant neoplasm of head of pancreas documented in this encounter Advance Directives Documents on File Type Date Recorded Patient Powered Bridge Specialist Expl anation Advance Directives and Living Will 09/28/2016 LIVING WILL * Full Code (Latest Code Status on File) Date Activated Date Inactivated Comments 01/03/2025 4:12 AM Question Answer Comments Discussion of Advance Direct [...] Care Agent (per Health Care Power of Dairy Cattle Farm Worker document) [email or web address] Care Teams Revenue Liaison Relationship Specialty Start Date End Date Luis Espinoza DO [address] [place] [address] PCP - General Family Medicine 02/16/17 documented as of this encounter
--- OUTSIDE RECORDS SUMMARY | 2025-01-16 12:14 | External Medical Summary ---
Author Name Unknown Address Unknown Organization K01:[facility] - [address] [place] [address] Laboratory Report Ordering Provider Test Date Status [facility] SANCHEZ 01/05/2025 04:16:00 Final Observation Date Value Abnormality Reference (Units ) Status WBC, Total 01/05/2025 04:16:00 14.11 Above high normal 4.00-10.80 (K/uL) Final RBC 01/05/2025 04:16:00 4.58 4.50-5.25 (M/uL) Final Hemoglobin 01/05/2025 04:16:00 14.0 14.0-16.8 (g/dL) Final HCT 01/05/2025 04:16:00 42.3 40.0-48.4 (%) Final MCV 01/05/2025 04:16:00 92.4 82.0-99.5 (fL) Final MCH 01/05/2025 04:16:00 30.6 27.0-34.0 (pg) Final MCHC 01/05/2025 04:16:00 33.1 32.0-36.0 (g/dL) Final RDW 01/05/2025 04:16:00 13.6 11.5-15.5 (%) Final Platelets 01/05/2025 04:16:00 438 Above high normal 140-400 (K/uL) Final MPV 01/05/2025 04:16:00 10.1 6.6-11.1 (fL) Final Nucleated erythrocytes/100 leukocytes [Ratio] in Blood by Automated count 01/05/2025 04:16:00 0 <=0 (/100 WBCs) Final Performing Location LABORATORY C - [address] [place] [address]
--- OUTSIDE RECORDS SUMMARY | 2025-01-16 12:14 | External Medical Summary | Summary of Care ---
Author Name Unknown Organization [facility] Address [address] [place] [address] Phone [phone] Care Team Providers Care Professional Tutor Name Role Phone Alexis Luis Shaye AMADO Primary Care Provider Encounter Details Date Type Department Care Team (Latest Contact Info) Description 01/03/2025 12:22 AM EDT - 01/03/2025 3:59 AM EDT Hospital Encounter Radiology Film File [address], [place] [phone] Arrived Discharge Disposition: Home - Self Care Allergies Active Allergy Reactions Criticality Noted Date Comments Pollen 08/13/2017 Hay fever per patient documented as of this encounter (statuses as of 01/04/2025) Medications aspirin 81 MG chewable tablet mornings [...] in the morning. 14 Each 5 Suspended amLODIPine Besylate 10 MG Oral Tablet (Norvasc)Indicat ions:History of VT (myocardial infarction) TAKE 1 TABLET [...] as of this encounter (statuses as of 01/04/2025) Active Problems Problem Noted Date Diagnosed Date [...] - 2014 Coronary artery disease invo lving [place] coronary artery of [place] heart without angina pectoris 11/19/2016 History of basal cell carcinoma of skin 05/24/20 15 documented as of this encounter (statuses as of 01/04/2025) Resolved Problems Problem Noted Date Diagnosed Date [...] as of this encounter (statuses as of 01/04/2025) Immunizations Name Administration Dates Next Due COVID-19 [...] 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 Not on file Not [...] Assessment Author No 12/22/2024 8:56 PM EDT Miranda, Nette P, RN * Because of a physical, mental, [...] Nette Miranda RN documented in this encounter Plan of Treatment Upcoming Encounters Date Type Department Care Team (Late st Contact Info) Description 01/07/2025 11:00 AM EDT Office Visit General Surgery Silvano Reeves [address] [place] [address] Robert Campa MD [address] [place] [address] 01/18/2025 10:00 AM EDT Office Visit Hematology/Oncology [facility] [address] [place] [phone] Niya Nicole MD [address] [place] [address] 03/10/2025 8:20 AM EDT Office Visit Dermatology [facility] [address] [place] [address] Kandi Rubalcava PA-C [address] [place], [place] [address] 03/25/2025 10:20 AM EDT Office Visit Family Practice [facility] [address] [place], [place] [address] Luis Espinoza DO [address] [place] [address] 04/06/2025 3:30 PM EDT Office Visit Cardiology, [facility] [address] [place] [phone] Florida Martinez IV, MD [address] [place] [address] 06/29/2025 2:00 PM EDT Office Visit Nephrology, [facility] [address] [facility] [place] [address] Aravind De La O MD [address] [facility] [place] [address] 08/15/2025 9:20 AM EST Office Visit Family Practice [facility] [address] [facility] [place] [address] Luis Espinoza DO [address] [facility] [place] [address] 10/24/2025 11:00 AM EST Office Visit Cardiology, [facility] [address] [place] [phone] Heidi Hitchcock PA-C [address] [place] [address] Health Maintenance Due Date Last Done Comments Adult Wellness Visit 10/04/2022 10/04/2021 COVID-19 Vaccine ( season) 2024 02/13/2024, 07/07/2023, 11/15/2022, Additional history exists CKD PHOS USE SMARTSET 34117 01/03/2026 05/12/2024, 01/03/2025, 11/26/2024, Additional history exists CKD HGB USE SMARTSET 95367 01/04/202601/04, 01/03/2025, 12/29/2024, Additional history exists DTap/Tdap Vaccines (3 - Td or Tdap) 12/26/2030 12/26/2020, 11/16/2010 Pneumococcal Vaccine: 50+ Years Completed 05/21/2016, 10/24/2009, 08/08/2004 Zoster Vaccines Completed 09/30/2018, 05/2018, 12/17/2011 Influenza Vaccine (FLU shot) Completed 05/28/2024, 07/30/2023, 07/05/2022, Additional history exists Albumin/Creatinine Ratio Discontinued 06/01/2024, 03/02 HPV (Gardasil) Vaccine Aged Out No lo [...] Medical Devices Implanted Type Area Strategic Planning Consultant Device Identifier Shelf Expiration Date Model / Serial / Lot Clip Quick 2.8mm 230cm - [id number] Implanted:Qty: 1 on 08/19/2022 by Jojo Pearson MD at [facility] [employer] 12/29/2024 HX-202UR.A / / 25K Clip Quick 2.8mm 230cm - [id number] Implanted:Qty: 1 on 08/19/2022 by Jojo Pearson MD at [facility] [employer] 12/29/2024 HX-UR.A / / 25K Clip Quick 2.8mm 230cm - [id number] Implanted:Qty: 1 on 08/19/2022 by Jojo Pearson MD at [facility] [employer] 12/29/2024 HX-UR.A / / 25K Clip Quick 2.8mm 230cm - [id number] Implanted:Qty: 1 on 08/19/2022 by Jojo Pearson MD at [facility] [employer] 12/29/2024 HX-UR.A / / 25K Clip Quick 2.8mm 230cm - [id number] Implanted:Qty: 1 on 08/19/2022 by Jojo Pearson MD at [facility] [employer] 12/29/2024 HX-202UR.A / / 25K Clip Quick 2.8mm 230cm - [id number] Implanted:Qty: 1 on 08/19/2022 by Jojo Pearson MD at [facility] [employer] 12/29/2024 HX-202UR.A / / 25K documented as of this encounter Procedures Procedure Name Priority Date/Time Associated Diagnosis Comments RADIOLOGY EXAM - CT (IMAGES ONLY, NO REPORT) Routine 01/03/2025 2:47 AM EDT documented in this encounter Results * RADIOLOGY EXAM - CT (IMAGES ONLY, NO REPORT) (01/03/2025 2:47 AM EDT) Narrative 01/03/2025 2:47 AM EDT This is an imaging study not interpreted or resulted by a [email or web address] or [employer] contracted radiologist. us Sav Varma MD RAD CT Final Result documented in this encounter Advance Directives Documents on File Type Date Recorded Patient Regulatory Internship Expl anation Advance Directives and Living Will [...] Care Agent (per Health Care Power of Cosmetic Surgeon document) [email or web address] Care Teams Professional Tutor Relationship Specialty Start Date End Date Luis Espinoza DO [address] [facility] [place] [address] PCP - General Family Medicine 02/16/17 documented as of this encounter
--- OUTSIDE RECORDS SUMMARY | 2025-01-16 12:14 | External Medical Summary ---
Author Name Unknown Address Unknown Organization [email or web address] [address] [place] [address] Laboratory Report Ordering Provider Test Date Status ALEJANDRO REECE 01/07/2025 09:11:00 Final Observation Date Value Abnormality Reference (Units ) Status Magnesium 01/07/2025 09:11:00 2.0 1.5-2.6 (m g/dL) Final Performing Location [facility] - [address] [place] [address]
--- OUTSIDE RECORDS SUMMARY | 2025-01-16 12:14 | External Medical Summary | Summary of Care ---
Author Name Unknown Organization [facility] Address [address] [place] [address] Phone [phone] Care Team Providers Care [employer] Specialist Supervisor Name Role Phone Alexis Bubba Shaye AMADO Primary Care Provider [phone] Reason for Visit * Auth/Cert Specialty Diagnoses / Procedures Referred By Gayathri rios Referred To Contact Diagnoses Bowel obstruction (HCC) Pancreatic mass Known pancreatic mass causing SBO Linda Kelly MD [address] [place] [address] Phone: tel: fax: Admissions, [facility] [address] [place] [address] Referral ID Status Reason Start Date Expiration Date Visits Re quested Visits Authorized [id number] Encounter Details Date Type Department Care Team (Latest Contact Info) Description 01/03/2025 4:00 AM EDT - 01/07/2025 1:59 PM EDT Hospital Encounter [id number] [facility], [facility] 6th Floor [address] [place] [address] Linda Kelly MD [address] [place] [address] Nilson Duran MD [address] [facility] [place] [address] Mark Baxter MD [address] [facility] [place] [address] Marina Conway, DO [address] [facility] [place] [address] Various: CDIQDC,EKG,UGI,UEUS Discharge Disposition: Home with Services Allergies Active Allergy Reactions Criticality Noted Date Comments Pollen 08/13/2017 Hay fever per patient documented as of this encounter (statuses as of 01/08/2025) Medications aspirin 81 MG chewable tablet mornings [...] 10 MG Oral Tablet (Norvasc)Indicat ions:History of FL (myocardial infarction) TAKE 1 TABLET BY MOUTH [...] as of this encounter (statuses as of 01/08/2025) Active Problems Problem Noted Date Diagnosed Date [...] protocol Chronic atrial fibrillation 02/28/2020 History of FL (myocardial infarction) 05/23/2017 History of nonmelanoma skin cancer 04/22/2017 Overview (04/22/2017): 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 cheek - 2015 Hx of BCC on left cheek - 2014 Coronary artery disease invo lving [place] coronary artery of [place] heart without angina pectoris 11/19/2016 History of basal cell carcinoma of skin 05/24/20 15 documented as of this encounter (statuses as of 01/08/2025) Resolved Problems Problem Noted Date Diagnosed Date [...] graft) 05/23/2017 FL (myocardial infarction) 0 05/23/2017 Overview (05/24/2015): 3 in 2011 - 3 stents and an ablation done Manic episode 11/19/2016 Bipolar disorder (manic depression) 05/24/2015 documented as of this encounter (statuses as of 01/08/2025) Immunizations Name Administration Dates Next Due COVID-19 mRNA, LNP-s, No Pre serve, 2-Dose Series (Moderna) 10/30/2020,09/27/2020 COVID-19, mRNA, LNP-s, PF, B ooster, 100mcg/0.5mg (Moderna) 07/04/2021 Covid-19, Mrna, Lnp-s, Pf, B ivalent, 30 Mcg, IM, 12 yrs and above (ContactPoint) 11/15/2022 H1N1 2009 Influenza, IM 09/04/2009 HEP [...] 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 Not on file Not on file Not on file documented as of this encounter Last Filed Vital Signs Vital Sign Reading Time Taken Comments Blood Pressure 164/86 01/07/2025 1:00 PM EDT Pulse 77 01/07/2025 1:00 PM EDT Temperature 36.1 °C (96.9 °F) 01/07/2025 1 2:00 PM EDT Respiratory Rate 17 01/07/2025 1:00 PM EDT Oxygen Saturation 97% 01/07/2025 1:00 PM EDT Inhaled Oxygen Concentration - - Weight 56.6 kg (124 lb 12.8 oz) 01/07/2025 5:32 AM EDT Height 165.1 cm (5' 5") 01/03/2025 4:53 AM EDT Body Mass Index 20.77 01/03/2025 4:53 AM EDT documented in this encounter Functional [...] Nette Miranda RN documented in this encounter Discharge Summaries * Marina Conway, - 01/07/2025 12:37 PM EDT [address] [address] Admission Date: 01/03/2025 Discharge Date: 01/07/2025 RECOMMENDED TO DO FOR NEXT PROVIDER(S): Follow up with heme onc as scheduled 01/18 at 10 AM Follow up with palliative medicine 01/19 at 10 AM Follow up with anticoagulation clinic Adherence to mechanical soft diet. REASON(S) FOR MEDICATION CHANGE(S): - Augmentin removed from medication list DISPOSITION ON DISCHARGE: Home with Services Active Hospital Problems Diagnosis Palliative care encounter Goals of care, counseling/discussion Severe protein-energy malnutrition (HCC) Pancreatic mass Dyslipidemia, goal LDL below 70 HTN, goal below 140/90 Chronic kidney disease with symptom management only, stage 3 (moderate) (HCC) Chronic atrial fibrillation (HCC) History of FL (myocardial infarction) Coronary artery disease involving [place] coronary artery of [place] heart without angina pectoris Resolved Hospital Problems Diagnosis Date Resolved *Principal Diagnosis - SBO (small bowel obstruction) (HCC) 01/07/2025 Generalized abdominal pain 01/07/2025 Nausea 01/07/2025 Anorexia 01/07/2025 ADMISSION HISTORY & PHYSICAL EXAM (focused): PRESENTING PROBLEM: pancreatic mass causing SBO HISTORY OF PRESENT ILLNESS: Andrade Mcfarlane is a 84 year old, male with with history of atrial fibrillation/flutter on warfarin,BPD, FL s/p CABG in 1990 and FL s/p PCI x3 stents in 2011, who [facility] for a known pancreatic mass causing SBO. Patient was recently found to have a large pancreat ic mass seen on CT abdomen on 12/21. He was then transferred to [facility] where he was diagnosed with obstructed jaudnice and had an EUS and ERCP on 12/24. He had a biopsy aspiration, biliary sphincterotomy and placement of a stent in his CBD. Pathology of the EUS FNA was suspicious for malignancy. His PCPreferred him to medical/surgical oncology. Since his recent hospital admission from 12/22 - 12/26, hefollowed up with his PCP on 12/29. Patient reports that for the past couple of days, his abdominal pain has worsened. He admits to vomiting 1x yesterday. His pain worsened to the point that he felt like he had to come into the hospital. Outside of vomiting yesterday, he has had minimal nausea. He has not had a bowel movement in 5 days, but is passing flatus. Minimal appetite for the last few days. He takes coumadin, which he last took two nights ago (01/01/2025). PSHx: appendectomy, open left inguinal hernia repair, cholecystectomy, CABG PHYSICAL EXAMINATION: Most Recent Vital Signs: BP: 158 mmHg/81 mmHg (01/03/25 0453) Pulse: 106 (01/03/25 0453) Resp: 16 (01/03/25 0453) Temp: 37.22 C (01/03/25 0453) Temp Summary: Temp Min: 37.2 °C (99 °F) Max: 37.2 °C (99 °F) SpO2: 98 % (01/03/25 0453) O2 flow rate: Supplemental O2 Delivery: Constitutional: no acute distress, appropriate mood, hard of hearing, NGT in place Head: normocephalic, atraumatic Eyes: sclera and conjunctiva normal Neck: supple, trachea midline, normal range of motion CV: warm and well perfused Chest: symmetric and normal respiratory effort Abdomen: soft, mod distended, no guarding or rebound. Tender to palpation in epigastric region Extremities: no edema, no cyanosis Skin: warm, dry Neuro: alert,conversant, motor function is grossly intact HOSPITAL COURSE (focused): Patient was admitted to the hospital with nausea, vomiting and abdominalpain in the setting of SBO in the setting of a known new pancreatic mass. Patient was initially admitted to the surgery service and deemed not to be a surgical candidate so ultimately underwent GJ stent placement with GI. He tolerated this procedure well and afterwards was able to tolerate a full liquid diet and be advanced to a mechanical soft diet. Repeat imaging showed resolved SBO and he was having bowel movements and tolerating a diet. While admitted, patient also had an XOIMY which resolved. He was deemed stable for discharge with heme onc and palliative follow up. DAY OF DISCHARGE EXAM: BP 172/97 | Pulse 94 | Temp 36.1 °C (96.9 °F) (Tympanic) | Resp 16 | Ht 1.651 m (5' 5") | Wt 56.6kg (124 lb 12.8 oz) | SpO2 100% | BMI 20.77 kg/m² | BSA 1.61 m² Constitutional: sitting up in bed, no distress. HEENT: normocephalic, atraumatic, YANDY, EOMI Neck: Supple Cardiac: RRR no murmurs Lungs: CTA bilaterally no wheezes rales or rhonchi Abdomen: soft, nontender, nondistended, active bowel sounds Extremities: no edema Skin: warm, dry, intact Neuro: A&O x3, no focal neurologic deficits Psych: normal mood and affect Operations & Procedures: EGD with EUS and stent placement Complications: none significant Significant Lab and Imaging Results: Latest Reference Range & Units 01/07/25 09:11 SODIUM 135 - 146 mmol/L 141 POTASSIUM 3.5 - 5.1 mmol/L 3.9 CHLORIDE 98 - 107 mmol/L 101 CO2 22 - 32 mmol/L 26 BUN 6 - 20 mg/dL 15 CREATININE 0.6 - 1.2 mg/dL 1.0 EGFR >=60 mL/min 75 ANION GAP 7 - 15 mmol/L 14 GLUCOSE 70 - 120 mg/dL 168 (H) CALCIUM 8.4 - 10.2 mg/dL 9.1 Magnesium 1.5 - 2.6 mg/dL 2.0 INR 0.8 - 1.2 1.1 Prothrombin Time 11.6 - 15.2 seconds 14.8 CBC Rpt ! WBC 4.00 - 10.80 K/uL 17.50 (H) RBC 4.50 - 5.25 M/uL 5.01 HGB 14.0 - 16.8 g/dL 15.1 HCT 40.0 - 48.4 % 46.8 MCV 82.0 - 99.5 fL 93.4 MCH 27.0 - 34.0 pg 30.1 MCHC 32.0 - 36.0 g/dL 32.3 RDW 11.5 - 15.5 % 13.4 PLT 140 - 400 K/uL 543 (H) MPV 6.6 - 11.1 fL 10.4 NRBC % <=0 /100 WBCs 0 (H): Data is abnormally high !: Data is abnormal Rpt: View report in Results Review for more information EGD and EUS: The duodenum and jejunum was filled with methylene blue mixed with sterile water and contrast to distend the distal duodenum and proximal jejunum. The decision was made to create a gastro-enterostomy using the AXIOS stent system. Once an appropriate position in the stomach was identified, the common wall between the stomach and the jejunum was interrogated utilizing color Doppler imaging to identify interposed vessels. The AXIOS stent and electrocautery device was introduced through the working channel. Current was applied to the cautery tip and then used to increase the diameter of the stoma. The AXIOS device was advanced into the jejunum using freehand puncture technique, and a 20 x 10 mm AXIOS stent was placedwith the flanges in close approximation to the pierce of the stomach and the jejunum through the gastro- enterostomy. The stentwas successfully placed. I personally interpreted the fluoroscopic images. The EUS- guided gastrojejunostomy was successfully performed under endosonographic and fluoroscopic guidance. I personally interpreted the fluoroscopic images. Placement of a long 0.025 inch long angled Visiglide guidewire was attempted. This passed successfully through the stent. A biliary balloon cathetor was passed successfully over the wire and contrastwas injected into the lumen to confirm sppropriate stent position. STENT DILATION: A TTS dilator was passed through the scope. Dilation of the stent lumen with a 12-13.5-15 mm x 3 cmCRE-Rx balloon dilator was performed to 15 mm under fluoroscopic guidance. The orojejunal drain was then removed and gastrojejunal patency was confirmed via relook endoscopy and with contrast injection. I personally interpreted the fluoroscopic images Results Pending at Discharge: none MEDICATION UPDATES AT DISCHARGE CONTINUE taking these medications INSTRUCTIONS amLODIPine 10 MG Tablet Commonly known as: Norvasc TAKE 1 TABLET BY MOUTH EVERY MORNING aspirin 81 MG chewable tablet mornings carBAMazepine ER 300 MG Cp12 Commonly known as: Carbatrol take 1 CAPSULE by mouth at bedtime Carvedilol 6.25 MG Tablet Commonly known as: Coreg Take 1 Tablet by mouth in the morning and 1 Tablet before bedtime. Colace 100 MG Capsule Generic drug: Docusate Sodium Take 1 Capsule by mouth in the morning and 1 Capsule before bedtime. Fluorouracil 5 % cream Commonly known as: Efudex Apply topically to affected area 2 times a day. Apply to forehead. Latanoprost 0.005 % ophthalmic solution Commonly known as: Xalatan Instill 1 Drop into both eyes at bedtime. 1 drop, left eye only, bedtime Lisinopril 20 MG Tablet Commonly known as: Prinivil Take 1 Tablet by mouth 2 times a day with morning and evening meals. meclizine 25 MG Tablet Commonly known as: Antivert Take 1 Tablet by mouth 3 times a day as needed. omeprazole 40 MG Cpdr Commonly known as: PriLOSEC Take 1 Capsule by mouth in the morning. 1 hour before the first meal of the day. ondansetron 4 MG Tablet Commonly known as: Zofran Take 1 Tablet by mouth every 6 hours as needed for Nausea. oxyCODONE 5 MG immediate release tablet Commonly known as: Oxy IR Take 1-2 Tablets by mouth every 6 hours as needed for Pain, Severe (take 10 mg for pain greater than 7 out of 10.). Pepcid 20 MG Tablet Generic drug: Famotidine Take 1 Tablet by mouth 2 times a day as needed for Heartburn or Other (stomach pain). Polyethylene Glycol 3350 packet Commonly known as: Miralax Take 1 Packet by mouth in the morning. rosuvastatin 40 MG Tablet Commonly known as: Crestor TAKE ONE TABLET BY MOUTH EVERY EVENING WITH dinner Timolol Hemihydrate 0.5 % ophthalmic solution Commonly known as: Betimol Instill 1 Drop into the left eye in the morning. traMADol 50 MG Tablet Commonly known as: Ultram Take 1 Tablet by mouth every 6 hours as needed for Pain, Moderate or Pain, Severe. triamcinolone 0.1% / cerave 1:1 1:1 cream Apply topically to affected area every 6 hours as needed for Itching (for itchy ankles/legs). Applyto ankles/legs Tylenol 325 MG Tablet Generic drug: Acetaminophen Take 1 Tablet by mouth every 6 hours as needed for Other (stomach pain). Vitamin D 50 MCG (2000 UT) Capsule Take 1 Capsule by mouth at bedtime. Warfarin Sodium 2 MG Tablet Commonly known as: Coumadin Take as directed. If you are unsure how to take this medication, talk to your nurse or doctor. Original instructions: TAKE 1 TABLET BY MOUTH DAILY FRIDAY, FRIDAY,FRIDAY AND 2 TABLETS ALL OTHER DAYS OR DIRECTED BY COAG CLINIC Do not start before December 30, 2024. STOP taking these medications amoxicillin-clavulanate 875-125 MG per Tablet Commonly known as: Augmentin SCHEDULED FOLLOW-UP: Future Appointments Appt Date/Time Provider Department 01/07/2025 5:10 PM Pharmacist1, [facility], [facility] 01/18/2025 10:00 AM Niya Nicole MD Hematology/Oncology [facility] 01/19/2025 10:00 AM Fanta Edwards MD Palliative Medicine [facility] 03/10/2025 8:20 AM Kandi Rubalcava PA-C Dermatology [facility] 03/25/2025 10:20 AM Bubba Espinoza DO [facility] 04/06/2025 3:30 PM Florida Martinez IV, MD Cardiology, [facility] 06/29/2025 2:00 PM Aravind De La O MD Nephrology, [facility] 08/15/2025 9:20 AM Bubba Espinoza DO [facility] 10/24/2025 11:00 AM Heidi Hitchcock PA-C Cardiology, [facility] Other Information Indwelling Devices: LINES ALL Duration Peripheral Line Right;Lower Arm 22 Gauge 2 days Vital Signs (last recorded): Most Recent Systolic BP: 172 mmHg (01/07/25 1200) Most Recent Diastolic BP: 97 mmHg (01/07/25 1200) Pulse: 94 (01/07/25 1200) Resp: 16 (01/07/25 1200) Most Recent Temperature: 36.06 C (01/07/25 1200) Weight: 56.6 kg (124 lb 12.8 oz) (01/07/25 0532) SpO2: 100 % (01/07/25 1200) Allergies: Environmental [pollen] Activity: as tolerated Diet: mechanical soft diet Code Status: Full Code Condition on Discharge: fair Isolation status: None Cognition: normal HOSPITAL CONSULTS ORDERED: GASTROENTEROLOGY CONSULT IP GASTROENTEROLOGY CONSULT IP ONCOLOGY CONSULT IP PALLIATIVE MEDICINE CONSULT IP ADULT PHYSICAL THERAPY CONSULT IP ADULT OCCUPATIONAL THERAPY CONSULT IP REFERRING PHYSICIAN: REF: HERACLIO HENLEY [facility], [place] [id number] (office) [phone] (fax) PRIMARY CARE PROVIDER: PCP: Bubba Espinoza DO [address] [place] [address] / [facility] [id number] (office) [phone] (fax) Note: To contact a physician responsible for this patient’s hospital care, please call [facility] [phone]. I certify this patient is confined to the home and needs intermittent [facility] care, physical therapy and/or speech therapy, or continues to need occupational therapy. The patient is under my care and I have authorized services on this plan of care. The clinical findings of decrease in functional mobility secondary to decreased strength, decreased balance, and decreased endurance due to recent hospitalization and overall medical condition support the need for home health, and the patientdemonstrates a considerable and taxing effort when attempting to leave the home. The patient had a [id number] encounter with an allowed provider type on 01/07/25 and the encounter was related to the primary reason for home health care. Under situations in whichI am an acute/post acute facility physician who will not be following the patient's plan of care, Iauthorized services on this plan of care and I transfer the patient for plan of care certification to the primary care physician named below who will follow the patient and update the plan of care. Primary care physician Bubba Espinoza DO I spent a total of 36 minutes coordinating, documenting, and providing care for this patient excluding time spent in the performance of separately billed services or time spent by another provider/QHP. documented in this encounter Discharge Instructions * Discharge Instr - AVS* Marina Conway DO - 01/03/2025 10:12 AM EDT Discharge Date: 01/07/25 The information below provides you with the instructions and the list of medications you need to betaking following discharge from the hospital. If you have any questions, please ask before leaving. If you have questions after leaving, you can reach us at the numbers below. YOUR HOSPITAL PROVIDERS: Discharging Provider: Marina Conway DO Provider Department: Hospital Medicine To reach this Provider Friday through Friday (8:00 AM to 4:30 PM) for any questions or test results: Call [phone] For after-hours concerns: Call [phone] and have your provider paged, or the provider fluorescent solution mixer for the Department of [facility] Medicine paged. Please note, the discharging provider will not be able to provide you with any medications refills.Please discuss these with your primary care provider. Worsening Symptoms: If you have new symptoms, or your symptoms get worse, please contact your Discharge Provider or Primary Care Provider (PCP). If these providers are not available, you can go to your local [facility] or Urgent Care Clinic during their business hours. In an EMERGENCY situation: Call [phone] or go to the nearest emergency room. A BRIEF SUMMARY OF YOUR HOSPITAL STAY: You came to the hospital with: nausea, vomiting, abdominal pain You presented to the hospital with the above symptoms and you were found to have a small bowel obstruction. You were initially admitted to the surgery service however after discussion with the surgical oncology team, it was felt that you were not a candidate for surgical intervention. You ultimately underwent a procedure with GI to relieve the obstruction and afterwards were able to be advanced from a full liquid diet to a soft diet. You tolerated this well and were also having bowel movements prior to discharge. You were deemed stable for discharge with close follow up. Your main diagnosis at discharge was: small bowel obstruction Operations & Procedures performed: EGD with EUS and stent placement Complications: none Inpatient test results that are pending at discharge: none Advance Directive Documented: Advance Directive Does the Patient have an Advance Directive? Yes YOUR FOLLOW UP APPOINTMENTS: Primary Care Provider Information: PCP: Bubba Espinoza DO [address] / [place] [address] (office) [phone] (fax) FUTURE APPOINTMENTS: - PCP follow up requested within 3 days - Keep heme onc appointment 01/18 at 10 AM - Keep palliative appointment 01/19 at 10 AM FUTURE LABS/STUDIES: - as directed by PCP/specialists MEDICATION CHANGES: - Augmentin removed from medication list - See below warfarin instructions from pharmacy. INSTRUCTIONS: Diet: easy to chew diet Activity: As tolerated Additional Instructions: - Call your primary care physician or seek medical attention if you develop chest pain, shortness of breath, nausea, vomiting, diarrhea, fevers, chills or any other concerning symptoms. * Pharmacy Instr - AVS* Yanira Titsu [facility] - 01/07/2025 11:49 AM EDT Warfarin dosing instructions for after discharge: You should have a prescription for Warfarin 2 mg tablets. Please take the following doses of warfarin by mouth after Discharge: Date Dose using warfarin 2 mg Tablets 01/07 Take 2 tablets = 4 mg 01/08 Take 2 tablets = 4 mg 01/09 Take 2 tablets = 4 mg 01/10 Take 1 tablets = 2 mg 01/11 Take 2 tablets = 4 mg The anticoagulation clinic pharmacist will provide you with further dosing and appointment instructions. If you have any questions regarding your anticoagulation therapy, please Contact Anticoagulation Clinic at [phone] or . Please share the following information with your provider: You were continued on WARFARIN for A-Fib . This is an Existing diagnosis. Because you have been placed on a blood thinner, your therapy will need to be monitored on a regular basis. You will have your . While you were in the hospital, you medication doses received and your corresponding labs were: INR Date/Time Value Ref Range Status 01/07/2025 09:11 AM 1.1 0.8 - 1.2 Final 01/06/2025 04:10 AM 1.3 (H) 0.8 - 1.2 Final 01/05/2025 04:16 AM 1.3 (H) 0.8 - 1.2 Final HGB Date/Time Value Ref Range Status 01/07/2025 09:11 AM 15.1 14.0 - 16.8 g/dL Final HCT Date/Time Value Ref Range Status 01/07/2025 09:11 AM 46.8 40.0 - 48.4 % Final PLT Date/Time Value Ref Range Status 01/07/2025 09:11 AM 543 (H) 140 - 400 K/uL Final Warfarin Administrations (last 720 hours) None documented in this encounter Progress Notes * Cherise Perry PA-C - 01/07/2025 9:19 AM EDT PROGRESS NOTE - Palliative Medicine [facility]-[address] [address] Name: Andrade Mcfarlane Location: [facility] [id number] Date: 01/07/2025 Time: 9:20 AM SUBJECTIVE: Patient seen and chart reviewed. Family present: no Pain: no Nausea: no Vomiting: no Dyspnea: no Anxious: no Reports that he feels "fine." Denied abdominal pain, nausea/vomiting. Last BM 01/06/25. He is passing flatus. [place] like he ate a lot of his breakfast- doesn't like the food, but feels hungry. Reported no symptoms (pain/nausea) after eating. He is very eager to D/C home. OBJECTIVE: Most Recent Vital Signs: BP: 160 mmHg/89 mmHg (01/07/25753) Pulse: 92 (01/07/25753) Resp: 17 (01/07/25753) Temp: 36.28 C (01/07/25753) Temp Summary: Temp Min: 36.1 °C (97 °F) Max: 36.8 °C (98.2 °F) SpO2: 100 % (01/07/25753) O2 flow rate: Supplemental O2 Delivery: Room Air, None (01/07/25753) Vital Signs Last 24 Hours: Systolic BP: Most Recent Systolic BP Av.8 mmHg Min: 143 mmHg Max: 176 mmHg Temperature: Most Recent Temperature Av.5 C Min: 36.11 C Max: 36.78 C Pulse: Pulse Av.8 Min: 71 Max: 92 Respirations: Resp Av Min: 15 Max: 17 SpO2: SpO2 Av.8 % Min: 99 % Max: 100 % Constitutional: no acute distress, (+) chronically ill HENT: normocephalic Eyes: anicteric and Sclera and conjunctiva normal Chest: normal respiratory effort Musculoskeletal: (+) loss of muscle mass Skin: warm, dry, intact on exposed areas of skin Neuro: alert, oriented to person, place, and time Psych: euthymic mood, flat affect LABS REVIEWED: no new labs IMAGING REVIEWED: no new studies ASSESSMENT/PLAN: Andrade Mcfarlane is a/an 84 year old male referred for consultation to Palliative Medicine with the primary diagnosis of large pancreatic mass (s/p ERCP / EUS with pathology suspiciousfor adenocarcinoma) admitted with small bowel obstruction (post-ERCP pancreatitis vs malignant obstr uction). Secondary Diagnoses are atrial fibrillation on Warfarin, CVA, CAD, HTN, HLD, bipolar 1 disorder and moderate malnutrition Palliative Encounter / Goals of Care He has completed AD - scanned into chart. Spouse (Jie) is medical POA. He is a Full Code at this time. Patient will benefit from goals of care / advanced care planning discussions pending final determination of care plan. Medical oncology did evaluate on 01/03/25- OP follow-up for systemic treatment, CTchest completed for staging with pulmonary nodules suspicious for metastatic disease. Patient resides in [place], [place]- would be closer to follow @ [facility]. Patient in agreement to follow with palliative medicine @ [facility] in coordination with oncology visits. Will place return appt for 1-2 weeks. Will update palliative nurse navigator too. Emotional support, empathetic listening and reassurance provided. Abdominal Pain Patient is S/P AXIOS stent placement with GI on 01/05/25 Had a BM on 01/06/25 and is passing flatus Continue bowel regimen per primary service / GI Recommend restarting [employer]IAN oxycodone 10 mg Q6H PRN pain Would D/C IV hydromorphone Nausea/Vomiting Small Bowel Obstruction (suspect 2/2 pancreatic mass) Patient is S/P AXIOS stent placement with GI on 01/05/25 NG tube removed Had a BM on 01/06/25 and is passing flatus Continue bowel regimen / medical management per primary service / GI Ondansetron 4 mg IV Q6H PRN nausea/vomiting - can transition to oral regimen for discharge Anorexia Moderate Malnutrition Tolerating liquid diet Nutrition following Might benefit from appetite stimulant (olanzapine) once SBO management is optimized/tolerating oralintake - can explore this more in outpatient setting SIGNOFF IMPRESSION AND RECOMMENDATIONS: Specialty Impression Pancreatic adenocarcinoma SBO Recommended medication(s) at discharge Oxycodone 10 mg Q6H PRN pain Continue bowel regimen to prevent OIC Ondansetron 4 mg Q6H PRN nausea/vomiting Recommended discharge testing (lab, imaging, etc.) N/A- defer to primary service Other recommended care at discharge Ongoing goals of care discussions to be completed in outpatientsetting pending further discussions with oncology Follow-up in [facility] 1-2 weeks We will sign off at this time. Please call with any questions or should the patient's clinical course change. The [employer] consultant has placed the following orders for their recommendations: Recommended Follow-up Cosigned by Vickie Bhakta MD at 01/07/2025 2:02 PM EDT * Marina Conway DO - 01/06/2025 11:51 AM EDT Images from the original note were not included. [facility] B640/B INTERVAL HISTORY: Overnight, no acute events. This AM, patient initially had some abdominal discomfort while taking his morning pills but this seems to have quickly resolved. He does not like the full liquid diet but has been able to tolerate it. Hopes to go home soon. Had a large bowel movement yesterday evening. Objective Physical Exam Most Recent Vital Signs: BP: 172 mmHg/81 mmHg (01/06/251135) Pulse: 86 (01/06/251135) Resp: 16 (01/06/251135) Temp: 36.33 C (01/06/251135) Temp Summary: Temp Min: 36.2 °C (97.2 °F) Max: 37.5 °C (99.5 °F) SpO2: 100 % (01/06/251135) O2 flow rate: Supplemental O2 Delivery: Room Air, None (01/06/251135) Constitutional: sitting up in bed, no distress. HEENT: normocephalic, atraumatic, YANDY, EOMI Neck: Supple Cardiac: RRR no murmurs Lungs: CTA bilaterally no wheezes rales or rhonchi Abdomen: mild TTP, active BS, non distended Extremities: no edema Skin: warm, dry, intact Neuro: A&O x3, no focal neurologic deficits Psych: normal mood and affect Peripheral Line Right;Lower Arm 22 Gauge (Active) Number of days: 2 STUDIES: Encounter Orders Labs and other studies reviewed with pertinent findings noted below: K 3.1 INR 1.3 WBC 16.14 Hggb 13.6 Platelets 470 Assessment and Plan IMPRESSION : Principal Problem: SBO (small bowel obstruction) (HCC) Active Problems: Coronary artery disease involving [place] coronary artery of [place] heart without angina pectoris History of [place] (myocardial infarction) Chronic atrial fibrillation (HCC) Chronic kidney disease with symptom management only, stage 3 (moderate) (HCC) HTN, goal below 140/90 Dyslipidemia, goal LDL below 70 Pancreatic mass Severe protein-energy malnutrition (HCC) Palliative care encounter Goals of care, counseling/discussion Generalized abdominal pain Nausea Anorexia Resolved Problems: * No resolved hospital problems. * I have examined the patient and consistent with the dietitian's findings found malnutrition presentof Severe (01/04/25899) degree. This is consistent with such due to Fat loss;Muscle loss;Inadequate energy intake;Weight loss (01/04/25899). I have also reviewed and agree with the dietitian's plan of care which include Monitored NPO/clear liquid status (01/04/25899). DIFFERENTIAL AND PLAN: Andrade Mcfarlane is an 84 year old male with a PMH atrial fibrillation on Warfarin, CVA, CAD, HTN, HLD,BPH and pancreatic mass s/p ERCP and EUS biopsy suspicious for adenocarcinoma who presented with abdominal pain, nausea and vomiting found to have GOO. Pancreatic mass suspicious for adenocarcinoma GOO - patient has been determined to not be a surgical candidate and therefore was transferred to medicine service. - GI is following. Underwent GJ yesterday with GI and tolerated well. - continue with full liquid diet today. Advance to mechanical soft diet tomorrow. If tolerates, maybe able to D/C tomorrow. - will need to follow with oncology and palliative in OP setting - Ok to re-start Warfarin on 01/07 per discussion with GI XIOMY on CKD, resolved - monitor with daily BMP Other chronic medical issues - HTN - Continue [employer]ICIAN Amlodipine, Carvedilol and Lisinopril - afib - holding [employer]NICIAN Coumadin as above. - Bipolar - continue [employer]CHNICIAN Carbamazepine - GERD - continue [employer]CHNICIAN Prilosec Misc: - Diet: NPO - VTE ppx: heparin - GI ppx: IV Protonix - Bowel regimen: holding - Lines/Devices: PIV, NGT - PT/OT: consulted - Dispo: keep in med surg - Code: full PHARMACOLOGIC VTE PROPHYLAXIS: hEParin Warfarin Sodium CODE STATUS: Full Code EXPECTED DISCHARGE DATE: 01/07/2025 I spent a total of 51 minutes coordinating, documenting, and providing care for this patient excluding time spent in the performance of separately billed services or time spent by another provider/QHP. * Cherise Perry PA-C - 01/06/2025 10:13 AM EDT PROGRESS NOTE - Palliative Medicine [facility] [id number] Name: Andrade Mcfarlane Location: [facility] B640/B Date: 01/06/2025 Time: 10:13 AM SUBJECTIVE: Patient seen and chart reviewed. Family present: yes- spouse and son Pain: no Nausea: no Vomiting: no Dyspnea: no Anxious: no Patient underwent AXIOS stent placement with GI on 01/05/25. He tolerated procedure well. Had a large BM last evening. Abdomen feels less distended. He has been tolerating liquid diet. Nursing at bedside did share that patient developed abdominal pain/nausea after receiving his morning pills. He denied nausea at time of evaluation - did receive ondansetron. He denied pain at time of evaluation - did not want pain medications per nursing report. OBJECTIVE: Most Recent Vital Signs: BP: 181 mmHg/88 mmHg (01/06/25827) Pulse: 92 (01/06/25827) Resp: 16 (01/06/25827) Temp: 36.72 C (01/06/25827) Temp Summary: Temp Min: 36 °C (96.8 °F) Max: 37.5 °C (99.5 °F) SpO2: 98 % (01/06/25827) O2 flow rate: Supplemental O2 Delivery: Room Air, None (01/06/25827) Vital Signs Last 24 Hours: Systolic BP: Most Recent Systolic BP Av mmHg Min: 157 mmHg Max: 181 mmHg Temperature: Most Recent Temperature Av.7 C Min: 36 C Max: 37.5 C Pulse: Pulse Av.5 Min: 67 Max: 92 Respirations: Resp Av.8 Min: 12 Max: 18 SpO2: SpO2 Av.5 % Min: 97 % Max: 100 % Constitutional: no acute distress, (+) chronically ill HENT: normocephalic Eyes: anicteric and Sclera and conjunctiva normal Chest: normal respiratory effort Musculoskeletal: (+) loss of muscle mass Skin: warm, dry, intact on exposed areas of skin Neuro: alert, oriented to person, place, and time Psych: euthymic mood, flat affect LABS REVIEWED: yes, reviewed Component Latest Ref Rng 01/06/2025 WBC 4.00 - 10.80 K/uL 16.14 (H) RBC 4.50 - 5.25 M/uL 4.57 HGB 14.0 - 16.8 g/dL 13.6 (L) HCT 40.0 - 48.4 % 42.5 MCV 82.0 - 99.5 fL 93.0 MCH 27.0 - 34.0 pg 29.8 MCHC 32.0 - 36.0 g/dL 32.0 RDW 11.5 - 15.5 % 13.6 PLT 140 - 400 K/uL 470 (H) MPV 6.6 - 11.1 fL 10.4 NRBC % <=0 /100 WBCs 0 BUN 6 - 20 mg/dL 16 CREATININE 0.6 - 1.2 mg/dL 0.9 EGFR >=60 mL/min 85 SODIUM 135 - 146 mmol/L 139 POTASSIUM 3.5 - 5.1 mmol/L 3.1 (L) CHLORIDE 98 - 107 mmol/L 99 CO2 22 - 32 mmol/L 25 ANION GAP 7 - 15 mmol/L 15 GLUCOSE 70 - 120 mg/dL 103 CALCIUM 8.4 - 10.2 mg/dL 8.4 Magnesium 1.5 - 2.6 mg/dL 2.1 IMAGING REVIEWED: no new studies ASSESSMENT/PLAN: Andrade Mcfarlane is a/an 84 year old male referred for consultation to Palliative Medicine with the primary diagnosis of large pancreatic mass (s/p ERCP / EUS with pathology suspiciousfor adenocarcinoma) admitted with small bowel obstruction (post-ERCP pancreatitis vs malignant obstr uction). Secondary Diagnoses are atrial fibrillation on Warfarin, CVA, CAD, HTN, HLD, bipolar 1 disorder and moderate malnutrition Palliative Encounter / Goals of Care He has completed AD - scanned into chart. Spouse (Jie) is medical POA. He is a Full Code at this time. Patient will benefit from goals of care / advanced care planning discussions pending final determination of care plan. Medical oncology did evaluate on 01/03/25- OP follow-up for systemic treatment, CTchest completed for staging with pulmonary nodules suspicious for metastatic disease. We will remain available for goals discussions as indicated. Patient resides in [place], [place]- would be closer to follow @ [facility]. This can be explored more prior to D/C. Emotional support, empathetic listening and reassurance provided. Abdominal Pain Patient is S/P AXIOS stent placement with GI on 01/05/25 NG tube removed Had a BM on 01/05/25 Continue bowel regimen per primary service / GI Recommend restarting [employer]ICIAN oxycodone 10 mg Q6H PRN pain Would D/C hydromorphone 0.2 mg (has not used) Continue hydromorphone 0.5 mg IV Q4H PRN breakthrough pain Nausea/Vomiting Small Bowel Obstruction (suspect 2/2 pancreatic mass) Patient is S/P AXIOS stent placement with GI on 01/05/25 NG tube removed Had a BM on 01/05/25 Ongoing medical management per primary service / GI Ondansetron 4 mg IV Q6H PRN nausea/vomiting - can transition to oral regimen for discharge Anorexia Moderate Malnutrition Tolerating liquid diet Nutrition following Might benefit from appetite stimulant (olanzapine) once SBO management is optimized/tolerating oralintake Thank you for allowing us to participate in the ongoing care of this patient. Please don't hesitate to call or page with any additional concerns. Cosigned by Vickie Bhakta MD at 01/06/2025 1:22 PM EDT * Charli Coleman MD - 01/06/2025 7:49 AM EDT Progress Note - Gastroenterology [facility] [id number] Name: Andrade Mcfarlane Location: [facility] B640/B Date: 01/06/2025 Time: 7:50 AM SUBJECTIVE: Patient was seen and examined at the bedside. No acute event overnight. GJ was placed yesterday without any complication. Patient tolerated liquid diet. HISTORY: Past Medical History: Past Medical History: Diagnosis Date Atrial fibrillation and flutter (HCC) Does not realize when he goes in to it BCC (basal cell carcinoma), face Moh's done Bipolar disorder (manic depression) (HCC) Glaucoma Manic episode (HCC) 2000 1 week inpatient stay [place] (my[place] infarction) ([facility]) 2011 3 in 2011 - stents and an ablation done S/P CABG (coronary artery bypass graft) 1990 Past Surgical History: Past Surgical History: Procedure Laterality Date COLONOSCOPY, DIAGNOSTIC (RECTUM) 12/30/2018 adenomatous polyps, diverticulosis, repeat 3 yrs/COLONOSCOPY FLEXIBLE PROXIMAL DIAGNOSTIC performedby Jojo Pearson MD at ENDOSCOPY [facility] COLONOSCOPY, DIAGNOSTIC (RECTUM) 08/19/2022 benign adenomatous polyps / COLONOSCOPY FLEXIBLE PROXIMAL DIAGNOSTIC performed by Jojo Pearson MD at ENDOSCOPY [facility] CORONARY ARTERIES BYPASS, THREE 1990 EGD, W/ENDOSCOPIC US 10/22/2023 mild gastritis/multiple stones gallbladder/cystic lesion pancreatic head/biopsies show mild gastritis, serous cyst/ESOPHAGOGASTRODUODENOSCOPY (EGD), FLEXIBLE, TRANSORAL, ENDOSCOPIC ULTRASOUND performed by Sylvia Horta DO at ENDOSCOPY [facility] EGD, W/ENDOSCOPIC US N/A 12/24/2024 ESOPHAGOGASTRODUODENOSCOPY (EGD), FLEXIBLE, TRANSORAL, ENDOSCOPIC ULTRASOUND performed by Sylvia Horta DO at OR [facility] ERCP, DIAGNOSTIC, SPECIMEN COLLECTION N/A 12/24/2024 ENDOSCOPIC RETROGRADE CHOLANGIOPANCREATOGRAPHY (ERCP) DIAGNOSTIC performed by Sylvia Horta DO at OR [facility] REMOVAL OF APPENDIX Social History: Social History Tobacco Use Smoking status: Former Current packs/day: 0.50 Average packs/day: 0.5 packs/day for 3.0 years (1.5 ttl pk-yrs) Types: Cigarettes Smokeless tobacco: Never Vaping Use Vaping status: Never Used Substance Use Topics Alcohol use: Not Currently Drug use: No Family History: Family History Problem Relation Name Age of Onset Heart Disorder Mother [place] Cancer Father Multiple myeloma Glaucoma Brother Heart Disorder Brother Allergies: Environmental [pollen] ROS: Reviewed, negative except as above. PHYSICAL EXAMINATION: Most Recent Vital Signs: BP: 160 mmHg/90 mmHg (01/06/2510) Pulse: 74 (01/06/25609) Resp: 16 (01/06/25402) Temp: 37.28 C (01/06/25402) Temp Summary: Temp Min: 36 °C (96.8 °F) Max: 37.5 °C (99.5 °F) SpO2: 97 % (01/06/25402) O2 flow rate: Supplemental O2 Delivery: Room Air, None (01/06/25402) Vital Signs Last 24 Hours: Systolic BP: Most Recent Systolic BP Av.4 mmHg Min: 157 mmHg Max: 180 mmHg Temperature: Most Recent Temperature Av.7 C Min: 36 C Max: 37.5 C Pulse: Pulse Av.8 Min: 67 Max: 92 Respirations: Resp Av.9 Min: 12 Max: 18 SpO2: SpO2 Av.5 % Min: 97 % Max: 100 % General: chronically ill Head and face: normocephalic and atraumatic Eyes: No scleral icterus; normal lids Neck: Supple. Good ROM Heart: Not tachycardic Respiratory: not in respiratory distress. Abdomen: Soft, non-tender, Non-distended. Extremities: No cyanosis, or clubbing. No edema Skin: Warm, dry, intact. Neuro: Alert and oriented x 3. Speech appropriate, moves all extremities. LABS: Reviewed in [facility] IMAGES: Reviewed in [facility] IMPRESSION: Andrade Mcfarlane is a 84 year old male with hx of A fib on warfarin, CVA, CAD, HTN, HLD, BPD, pancreatic mass status post ERCP and EUS biopsy (pathology suspicious for adenocarcinoma) who presented to the hospital with abdominal pain and nausea or vomiting. CT scan is consistent with GOO. Gi consulted for the EUS GJ placement. GJ stent was placed yesterday without any complication. RECOMMENDATIONS/PLAN: Full liquid diet for today. advance to mechanical soft as tolerated tomorrow. Do not advance beyond mechanical soft due to riskof stent occlusion or migration. Warfarin can be resume in 48 hours. Thank you for the consult. We will be available as needed. Please callback with any questions. I have discussed the case with my attending, Dr. Nunez. Charli Proctor MD Gastroenterology Fellow, [facility] Cosigned by Juliette Nunez DO at 01/06/2025 11:56 AM EDT Associated attestation - Juliette Nunez DO - 01/06/2025 11:56 AM EDT I saw and evaluated the patient today. I have reviewed the resident/fellow physician note and agree. * Marina Conway, - 01/05/2025 1:22 PM EDT Images from the original note were not included. [facility] ENDO [facility] HFAM/Endo INTERVAL HISTORY: Overnight, no acute events. This AM, patient is doing okay but he is frustrated. He does not seem to understand why he is getting a GJ. Notes that the NGT is uncomfortable. Hopes that he can go home soon. Objective Physical Exam Most Recent Vital Signs: BP: 174 mmHg/86 mmHg (01/05/25 1144) Pulse: 77 (01/05/25 1144) Resp: 17 (01/05/25 1144) Temp: 36 C (01/05/25 1138) Temp Summary: Temp Min: 36 °C (96.8 °F) Max: 37.3 °C (99.2 °F) SpO2: 97 % (01/05/25 1144) O2 flow rate: Supplemental O2 Delivery: Room Air, None (01/05/25 114) Constitutional: awake, alert, sitting up in bed, no major distress. HEENT: normocephalic, atraumatic, YANDY, EOMI, NGT in place Neck: Supple Cardiac: RRR no murmurs Lungs: CTA bilaterally no wheezes rales or rhonchi Abdomen: soft, nontender, nondistended Extremities: no edema Skin: warm, dry, intact Neuro: A&O x3, no focal neurologic deficits Psych: flat mood and affect Peripheral Line Right;Lower Arm 22 Gauge (Active) Number of days: 1 NG/OG Right nostril (Active) Number of days: 3 STUDIES: Encounter Orders Labs and other studies reviewed with pertinent findings noted below: INR 1.3 WBC 14.11 Platelets 438 Assessment and Plan IMPRESSION : Principal Problem: SBO (small bowel obstruction) (HCC) Active Problems: Coronary artery disease involving [place] coronary artery of [place] heart without angina pectoris History of [place] (myocardial infarction) Chronic atrial fibrillation (HCC) Chronic kidney disease with symptom management only, stage 3 (moderate) (HCC) HTN, goal below 140/90 Dyslipidemia, goal LDL below 70 Pancreatic mass Severe protein-energy malnutrition (HCC) Palliative care encounter Goals of care, counseling/discussion Generalized abdominal pain Nausea Anorexia Resolved Problems: * No resolved hospital problems. * I have examined the patient and consistent with the dietitian's findings found malnutrition presentof Severe (01/04/25899) degree. This is consistent with such due to Fat loss;Muscle loss;Inadequate energy intake;Weight loss (01/04/25899). I have also reviewed and agree with the dietitian's plan of care which include Monitored NPO/clear liquid status (01/04/25899). DIFFERENTIAL AND PLAN: Andrade Mcfarlane is an 84 year old male with a PMH atrial fibrillation on Warfarin, CVA, CAD, HTN, HLD,BPH and pancreatic mass s/p ERCP and EUS biopsy suspicious for adenocarcinoma who presented with abdominal pain, nausea and vomiting found to have GOO. Pancreatic mass suspicious for adenocarcinoma GOO - patient has been determined to not be a surgical candidate and therefore was transferred to medicine service. - GI is following. Plan for GJ today. Follow recommendations after procedure - oncology and palliative medicine also following. It appears patient does not have great understanding of his diagnosis and next steps. Would likely benefit from formal GOC with multidisciplinary teams. XIOMY on CKD, resolved - monitor with daily BMP - may be able to stop IVF today Other chronic medical issues - HTN - holding [employer]NICIAN Coreg, Lisinopril and Amlodipine as patient is NPO. Continue Lopressor scheduled for now IV. - afib - holding [employer]NICIAN coumadin. Will restart as able - Bipolar - continue Carbamezapine 100 mg TID via NGT - GERD - continue IV Pantoprazole daily Misc: - Diet: NPO - VTE ppx: heparin - GI ppx: IV Protonix - Bowel regimen: holding - Lines/Devices: PIV, NGT - PT/OT: consulted - Dispo: keep in med surg - Code: full - plan discussed in detail at bedside with patient and patient's . All questions addressed. PHARMACOLOGIC VTE PROPHYLAXIS: hEParin Warfarin Sodium CODE STATUS: Full Code EXPECTED DISCHARGE DATE: 01/07/2025 I spent a total of 56 minutes coordinating, documenting, and providing care for this patient excluding time spent in the performance of separately billed services or time spent by another provider/QHP. * Cherise Perry PA-C - 01/05/2025 10:07 AM EDT PROGRESS NOTE - Palliative Medicine [facility] [phone] Name: Andrade Mcfarlane Location: [facility] B640/B Date: 01/05/2025 Time: 10:07 AM SUBJECTIVE: Patient seen and chart reviewed. Family present: yes- son Pain: no Nausea: no Vomiting: no Dyspnea: no Anxious: no NG tube remains in place Patient received hydromorphone 0.5 mg IV x 1 this morning. He doesn't recall receiving this pain medication. Denied pain at time of evaluation. No nausea/vomiting. Has not had a BM. Does report that he's passing flatus. Anticipating plan for GI procedure this afternoon. Patient is hoping that he can leave the [facility]. OBJECTIVE: Most Recent Vital Signs: BP: 176 mmHg/81 mmHg (01/05/25543) Pulse: 86 (01/05/25543) Resp: 16 (01/05/25543) Temp: 36.11 C (01/05/25543) Temp Summary: Temp Min: 36.1 °C (97 °F) Max: 37.3 °C (99.2 °F) SpO2: 97 % (01/05/25543) O2 flow rate: Supplemental O2 Delivery: Room Air, None (01/05/2544) Vital Signs Last 24 Hours: Systolic BP: Most Recent Systolic BP Av.9 mmHg Min: 173 mmHg Max: 184 mmHg Temperature: Most Recent Temperature Av.7 C Min: 36.11 C Max: 37.33 C Pulse: Pulse Av.4 Min: 85 Max: 100 Respirations: Resp Av.6 Min: 16 Max: 18 SpO2: SpO2 Av.2 % Min: 97 % Max: 99 % Constitutional: no acute distress, (+) chronically ill HENT: normocephalic, NG tube in place Eyes: anicteric and Sclera and conjunctiva normal Chest: normal respiratory effort Abdominal: slight distension Musculoskeletal: (+) loss of muscle mass Skin: warm, dry, intact on exposed areas of skin Neuro: alert, oriented to person, place, and time Psych: euthymic mood LABS REVIEWED: yes, reviewed Component Latest Ref Rng 01/05/2025 WBC 4.00 - 10.80 K/uL 14.11 (H) RBC 4.50 - 5.25 M/uL 4.58 HGB 14.0 - 16.8 g/dL 14.0 HCT 40.0 - 48.4 % 42.3 MCV 82.0 - 99.5 fL 92.4 MCH 27.0 - 34.0 pg 30.6 MCHC 32.0 - 36.0 g/dL 33.1 RDW 11.5 - 15.5 % 13.6 PLT 140 - 400 K/uL 438 (H) MPV 6.6 - 11.1 fL 10.1 NRBC % <=0 /100 WBCs 0 BUN 6 - 20 mg/dL 21 (H) CREATININE 0.6 - 1.2 mg/dL 1.0 EGFR >=60 mL/min 71 SODIUM 135 - 146 mmol/L 141 POTASSIUM 3.5 - 5.1 mmol/L 3.7 CHLORIDE 98 - 107 mmol/L 100 CO2 22 - 32 mmol/L 28 ANION GAP 7 - 15 mmol/L 13 GLUCOSE 70 - 120 mg/dL 173 (H) CALCIUM 8.4 - 10.2 mg/dL 8.7 Magnesium 1.5 - 2.6 mg/dL 2.3 IMAGING REVIEWED: no new studies ASSESSMENT/PLAN: Andrade Mcfarlane is a/an 84 year old male referred for consultation to Palliative Medicine with the primary diagnosis of large pancreatic mass (s/p ERCP / EUS with pathology suspiciousfor adenocarcinoma) admitted with small bowel obstruction (post-ERCP pancreatitis vs malignant obstr uction). Secondary Diagnoses are atrial fibrillation on Warfarin, CVA, CAD, HTN, HLD, bipolar 1 disorder and moderate malnutrition Palliative Encounter / Goals of Care He has completed AD - scanned into chart. Spouse (Jie) is medical POA. He is a Full Code at this time. Patient will benefit from goals of care / advanced care planning discussions pending final determination of care plan. Medical oncology did evaluate on 01/03/25- OP follow-up for systemic treatment, CTchest completed for staging with pulmonary nodules suspicious for metastatic disease. We will remain available for goals discussions as indicated. Patient resides in [place], [place]- would be closer to follow @ [facility]. This can be explored more prior to D/C. Emotional support, empathetic listening and reassurance provided. 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 10 mg (5 mg x 2 tabs) Q6H PRN - was using on a regular basis Pain has improved s/p NG tube placement Explained rationale for utilization of IV pain medications while NPO Continue hydromorphone 0.2 mg Q4H PRN moderate pain Continue hydromorphone 0.5 mg IV Q4H PRN severe pain (x 1) Once patient is tolerating oral intake would rotate back to [employer]CHNICIAN oxycodone 10 mg Q6H PRN pain Nausea/Vomiting Small Bowel Obstruction (suspect 2/2 pancreatic mass) Nausea/vomiting has improved s/p NG tube placement GI following- planning for EUS GJ placement tentative this afternoon Ongoing medical management per primary service / GI Ondansetron 4 mg IV Q6H PRN nausea/vomiting Anorexia Moderate Malnutrition NPO at this time Nutrition following Might benefit from appetite stimulant (olanzapine) once SBO management is optimized/tolerating oralintake Thank you for allowing us to participate in the ongoing care of this patient. Please don't hesitate to call or page with any additional concerns. Cosigned by Vickie Bhakta MD at 01/05/2025 12:51 PM EDT * Charli Coleman MD - 01/05/2025 9:57 AM EDT Progress Note - Gastroenterology [facility] [address] Name: Andrade Mcfarlane Location: [facility] B640/B Date: 01/05/2025 Time: 9:57 AM SUBJECTIVE: Patient was seen and examined at the bedside. No acute event overnight. Plan for EGD with EUS for GJ stent placement. HISTORY: Past Medical History: Past Medical History: Diagnosis Date Atrial fibrillation and flutter (HCC) Does not realize when he goes in to it BCC (basal cell carcinoma), face Moh's done Bipolar disorder (manic depression) (HCC) Glaucoma Manic episode (HCC) 2000 1 week inpatient stay [place] (my[place] infarction) ([facility]) 2011 3 in 2011 - 3 stents and an ablation done S/P CABG (coronary artery bypass graft) 1990 Past Surgical History: Past Surgical History: Procedure Laterality Date COLONOSCOPY, DIAGNOSTIC (RECTUM) 12/30/2018 adenomatous polyps, diverticulosis, repeat 3 yrs/COLONOSCOPY FLEXIBLE PROXIMAL DIAGNOSTIC performedby Jojo Pearson MD at ENDOSCOPY [facility] COLONOSCOPY, DIAGNOSTIC (RECTUM) 08/19/2022 benign adenomatous polyps / COLONOSCOPY FLEXIBLE PROXIMAL DIAGNOSTIC performed by Jojo Pearson MD at ENDOSCOPY [facility] CORONARY ARTERIES BYPASS, THREE 1990 EGD, W/ENDOSCOPIC US 10/22/2023 mild gastritis/multiple stones gallbladder/cystic lesion pancreatic head/biopsies show mild gastritis, serous cyst/ESOPHAGOGASTRODUODENOSCOPY (EGD), FLEXIBLE, TRANSORAL, ENDOSCOPIC ULTRASOUND performed by Sylvia Horta DO at ENDOSCOPY [facility] EGD, W/ENDOSCOPIC US N/A 12/24/2024 ESOPHAGOGASTRODUODENOSCOPY (EGD), FLEXIBLE, TRANSORAL, ENDOSCOPIC ULTRASOUND performed by Sylvia Horta DO at OR [facility] ERCP, DIAGNOSTIC, SPECIMEN COLLECTION N/A 12/24/2024 ENDOSCOPIC RETROGRADE CHOLANGIOPANCREATOGRAPHY (ERCP) DIAGNOSTIC performed by Sylvia Horta DO at OR [facility] REMOVAL OF APPENDIX Social History: Social History Tobacco Use Smoking status: Former Current packs/day: 0.50 Average packs/day: 0.5 packs/day for 3.0 years (1.5 ttl pk-yrs) Types: Cigarettes Smokeless tobacco: Never Vaping Use Vaping status: Never Used Substance Use Topics Alcohol use: Not Currently Drug use: No Family History: Family History Problem Relation Name Age of Onset Heart Disorder Mother [place] Cancer Father Multiple myeloma Glaucoma Brother Heart Disorder Brother Allergies: Environmental [pollen] ROS: Reviewed, negative except as above. PHYSICAL EXAMINATION: Most Recent Vital Signs: BP: 176 mmHg/81 mmHg (01/05/25543) Pulse: 86 (01/05/25543) Resp: 16 (01/05/25543) Temp: 36.11 C (01/05/25543) Temp Summary: Temp Min: 36.1 °C (97 °F) Max: 37.3 °C (99.2 °F) SpO2: 97 % (01/05/25543) O2 flow rate: Supplemental O2 Delivery: Room Air, None (01/05/25543) Vital Signs Last 24 Hours: Systolic BP: Most Recent Systolic BP Av.9 mmHg Min: 173 mmHg Max: 184 mmHg Temperature: Most Recent Temperature Av.7 C Min: 36.11 C Max: 37.33 C Pulse: Pulse Av.4 Min: 85 Max: 100 Respirations: Resp Av.6 Min: 16 Max: 18 SpO2: SpO2 Av.2 % Min: 97 % Max: 99 % General: Patient is awake, alert, oriented x 3, and in no acute distress Head and face: NG tube Eyes: No scleral icterus; normal lids Neck: Supple. Good ROM Heart: Not tachycardic Respiratory: not in respiratory distress. Abdomen: Soft, non-tender, Non-distended. Extremities: No cyanosis, or clubbing. No edema Skin: Warm, dry, intact. Neuro: Alert and oriented x 3. Speech appropriate, moves all extremities. LABS: Reviewed in [facility] IMAGES: Reviewed in [facility] IMPRESSION: Andrade Mcfarlane is a 84 year old male with hx of A fib on warfarin, CVA, CAD, HTN, HLD, BPD, pancreatic mass status post ERCP and EUS biopsy (pathology suspicious for adenocarcinoma) who presented to the hospital with abdominal pain and nausea or vomiting. CT scan is consistent with GOO. Gi consulted for the EUS GJ placement. Cases discuss with the advanced attending, plan for EUS and GJ placementtoday. RECOMMENDATIONS/PLAN: Patient is npo for GJ stent placement Plan for procedure today. I have discussed the case with my attending, Dr. Nunez. Charli Proctor MD Gastroenterology Fellow, [facility] Cosigned by Juliette Nunez DO at 01/05/2025 12:35 PM EDT Associated attestation - Juliette Nunez DO - 01/05/2025 12:35 PM EDT I saw and evaluated the patient today. I have reviewed the resident/fellow physician note and agree. * Nilson Duran MD - 01/04/2025 12:26 PM EDT Images from the original note were not included. [facility] B640/B INTERVAL HISTORY: Patient seen and examined. No acute events overnight Has intermittent mild abdominal pain; which is significantly improved compared to pre NG tube placement. NG tube putting out bilious fluid. No chest pains, shortness of breath or other complaints Objective Physical Exam Most Recent Vital Signs: BP: 175 mmHg/79 mmHg (01/04/25 1037) Pulse: 85 (01/04/25 1037) Resp: 18 (01/04/25 1037) Temp: 36.44 C (01/04/25 1037) Temp Summary: Temp Min: 36.3 °C (97.3 °F) Max: 37.1 °C (98.8 °F) SpO2: 99 % (01/04/25 1037) O2 flow rate: Supplemental O2 Delivery: Room Air, None (01/04/25 1037) Constitutional: Chronically ill appearing elderly male patient appearing stated age. Mild to moderate malnourishment. No distress. Resting comfortably. Pleasant HEENT: Normocephalic and atraumatic. Moist mucus membranes. Sclera anicteric Neck: NGT in place. Supple. Normal ROM. No JVD noted. CV: Normal rate and regular rhythm. Resp: On room air. Good resp effort. Adequate air entry B/L. No audible wheezing. No crackles. Abdomen: Soft. Mild diffuse tenderness. No rebound. BS present Extremities: No peripheral edema. Peripheries Warm and Dry. : No roman Neurologic: Awake, Alert and oriented x3. No focal neurological deficits. Grossly sensory and motorintact. Psych: Not agitated. Normal mood and affect Volume status: Euvolemic Peripheral Line Right;Upper Arm 20 Gauge (Active) Number of days: 2 NG/OG Right nostril (Active) Number of days: 2 STUDIES: Encounter Orders Labs and other studies reviewed with pertinent findings noted below: Laboratory Values: reviewed. -- Brief labs below include the 7 most recent results over the past week. Blood Gas: No results in the last 7 days - inpatent use only Chemistry Panel: Lab results within last 7 days (see chart for full results) Units 01/04/25 0425 01/03/25 1437 01/03/25 0450 SODIUM mmol/L 140 141 141 POTASSIUM mmol/L 3.9 4.1 3.7 CHLORIDE mmol/L 97* 99 94* CO2 mmol/L 25 29 27 EGFR mL/min 64 55* 44* BUN mg/dL 31* 40* 47* CREATININE mg/dL 1.1 1.3* 1.5* GLUCOSE mg/dL 83 128* 133* CALCIUM mg/dL 8.6 8.8 9.2 Magnesium mg/dL -- -- 2.6 Phosphorus mg/dL -- 2.6 4.5 ANION GAP mmol/L 18* 13 20* Complete Blood Count: Lab results within last 7 days (see chart for full results) Units 01/04/25 0425 01/03/25 0450 12/29/24 1534 WBC K/uL 14.11* 18.38* 10.41 HGB g/dL 14.6 14.5 12.9* HCT % 44.3 45.5 40.5 PLT K/uL 453* 635* 430* MCV fL 94.1 95.2 94.8 Cardiac Studies: No results in the last 7 days - inpatent use only Coagulation Studies: Lab results within last 7 days (see chart for full results) Units 01/03/25 0450 Prothrombin Time seconds 19.4* INR 1.6* Liver Function Panel: Lab results within last 7 days (see chart for full results) Units 01/03/25 1437 01/03/25 0450 Albumin g/dL 3.4* 3.8 Protein g/dL -- 7.0 Bilirubin, Total mg/dL -- 0.7 Bilirubin, Direct mg/dL -- 0.4* AST U/L -- 36 ALT U/L -- 55* Alkaline Phosphatase U/L -- 504* Infectious Studies: No results in the last 7 days - inpatent use only Cultures: reviewed. No results in the last 7 days - inpatent use only Recent Cultures (2 Weeks) No lab values to display. Radiographic Studies (last 72 hours): reviewed. CT CHEST W CONTRAST Result Date: 01/04/2025 IMPRESSION Right lower lobe pulmonary nodules suspicious for metastatic disease. These nodules haveappeared since a 09/23/[address] XR ABDOMEN 1 VIEW Result Date: 01/03/2025 IMPRESSION 1. Feeding tube in place with the tip and side port overlying the left upper quadrant ofthe abdomen assumed to be in the gastric lumen. The proximal side port is close to the gastroesophageal junction and advancement by approximately 5 cm is recommended. 2. Air density visualized in theliver may represent pneumobilia versus portal venous gas. Further evaluation with CT scan may be performed. The ORTEGA/CONCESSIONS MANAGER was instructed to inform the clinician that there are significant findings and that the report is available for review. Assessment and Plan IMPRESSION : Principal Problem: SBO (small bowel obstruction) (HCC) Active Problems: Coronary artery disease involving [place] coronary artery of [place] heart without angina pectoris History of [place] (myocardial infarction) Chronic atrial fibrillation (HCC) Chronic kidney disease with symptom management only, stage 3 (moderate) (HCC) HTN, goal below 140/90 Dyslipidemia, goal LDL below 70 Pancreatic mass Severe protein-energy malnutrition (HCC) Palliative care encounter Goals of care, counseling/discussion Generalized abdominal pain Nausea Anorexia Resolved Problems: * No resolved hospital problems. * I have examined the patient and consistent with the dietitian's findings found malnutrition presentof Severe (01/04/25 0900) degree. This is consistent with such due to Fat loss;Muscle loss;Inadequate energy intake;Weight loss (01/04/25899). I have also reviewed and agree with the dietitian's plan of care which include Monitored NPO/clear liquid status (01/04/25899). DIFFERENTIAL AND PLAN: Andrade Mcfarlane is a 84 year old male with hx of A fib on warfarin, CVA, CAD, HTN, HLD, BPD, pancreatic mass status post ERCP and EUS biopsy (pathology suspicious for adenocarcinoma) who presented to the hospital with abdominal pain and nausea or vomiting and concern for small bowel obstruction due to the mass Gastric outlet obstruction/small bowel obstruction Recently diagnosed Pancreatic mass concerning for Adenocarcinoma; suspected metastatic Patient was evaluated by General surgery and Surgical Oncology and no plan for surgical intervention at this time. Evaluated by GI and plan for EUS GJ placement tomorrow Medical Oncology, Palliative Medicine are following. CT chest as above XIOMY on baseline CKD Resolving. Continue IV fluids while NPO. Monitor renal function/electrolytes HTN Currently holding [employer] TECHNICIAN Coreg 6.25 mg BID, lisinopril 20 mg BID, amlodipine 10 mg as patient is currently NPO. Continue IV Lopressor 2.5 mg Q6h. Titrate upwards as needed. PRN. hydralazine Persistent atrial fibrillation Holding [employer] TECHNICIAN Coumadin for now in the setting of anticipated procedure. Beta- blockers for rate control as above Bipolar disorder Switched to Carbamezepine 100 mg TID via NGT (from [employer] TECHNICIAN 300 mg ER HS) GERD Switched to IV Pantoprazole 40 mg daily Orders Placed This Encounter Procedures NPO PHARMACOLOGIC VTE PROPHYLAXIS: hEParin Warfarin Sodium CODE STATUS: Full Code EXPECTED DISCHARGE DATE: No information available I spent a total of 55 minutes coordinating, documenting, and providing care for this patient excluding time spent in the performance of separately billed services or time spent by another provider/QHP. * Cherise Perry PA-C - 01/04/2025 10:43 AM EDT PROGRESS NOTE - Palliative Medicine [facility] [address] Name: Andrade Mcfarlane Location: [facility] B640/B Date: 01/04/2025 Time: 10:44 AM SUBJECTIVE: Patient seen and chart reviewed. Family present: no Pain: mild Nausea: no Vomiting: no Dyspnea: no Anxious: no NG tube remains in place Patient reports intermittent mild abdominal pain. He has not required opioids for breakthrough pain. No nausea/vomiting. Has not had a BM. Does report that he's passing flatus. OBJECTIVE: Most Recent Vital Signs: BP: 175 mmHg/79 mmHg (01/04/25 1037) Pulse: 85 (01/04/25 1037) Resp: 18 (01/04/25 1037) Temp: 36.44 C (01/04/25 1037) Temp Summary: Temp Min: 36.3 °C (97.3 °F) Max: 37.1 °C (98.8 °F) SpO2: 99 % (01/04/25 1037) O2 flow rate: Supplemental O2 Delivery: Room Air, None (01/04/25 1037) Vital Signs Last 24 Hours: Systolic BP: Most Recent Systolic BP Av.5 mmHg Min: 146 mmHg Max: 175 mmHg Temperature: Most Recent Temperature Av.7 C Min: 36.28 C Max: 37.11 C Pulse: Pulse Av.2 Min: 72 Max: 100 Respirations: Resp Av.9 Min: 17 Max: 18 SpO2: SpO2 Av.3 % Min: 96 % Max: 99 % Constitutional: no acute distress, (+) chronically ill HENT: normocephalic, NG tube in place Eyes: anicteric and Sclera and conjunctiva normal Chest: normal respiratory effort Abdominal: slight distension Musculoskeletal: (+) loss of muscle mass Skin: warm, dry, intact on exposed areas of skin Neuro: alert, oriented to person, place, and time Psych: euthymic mood LABS REVIEWED: yes, reviewed Component Latest Ref Rng 01/04/2025 WBC 4.00 - 10.80 K/uL 14.11 (H) RBC 4.50 - 5.25 M/uL 4.71 HGB 14.0 - 16.8 g/dL 14.6 HCT 40.0 - 48.4 % 44.3 MCV 82.0 - 99.5 fL 94.1 MCH 27.0 - 34.0 pg 31.0 MCHC 32.0 - 36.0 g/dL 33.0 RDW 11.5 - 15.5 % 13.7 PLT 140 - 400 K/uL 453 (H) MPV 6.6 - 11.1 fL 10.0 NRBC % <=0 /100 WBCs 0 BUN 6 - 20 mg/dL 31 (H) CREATININE 0.6 - 1.2 mg/dL 1.1 EGFR >=60 mL/min 64 SODIUM 135 - 146 mmol/L 140 POTASSIUM 3.5 - 5.1 mmol/L 3.9 CHLORIDE 98 - 107 mmol/L 97 (L) CO2 22 - 32 mmol/L 25 ANION GAP 7 - 15 mmol/L 18 (H) GLUCOSE 70 - 120 mg/dL 83 CALCIUM 8.4 - 10.2 mg/dL 8.6 IMAGING REVIEWED: yes, reviewed CT Chest 01/04/25 FINDINGS LINES AND DEVICES: Enteric tube tip and side port in the gastric lumen. LUNGS: 1.4 cm solid nodule at the posterior right lung base. 9 mm right lower lobe ill-defined nodule within a surrounding region of ground-glass attenuation PLEURA: No pleural effusions. LARGE AIRWAYS: Patent airways. HEART: Unremarkable. VESSELS: Severe multivessel coronary artery calcifications. THYROID: Unremarkable. MEDIASTINUM: No lymphadenopathy. CHEST WALL/SOFT TISSUES: Unremarkable. UPPER ABDOMEN: Left liver pneumobilia. Bile duct stent traverses a partially visualized pancreatic mass. Cholecystectomy clips. BONES: Sternotomy wires. Degenerative changes without aggressive osseous lesions. IMPRESSION IMPRESSION Right lower lobe pulmonary nodules suspicious for metastatic disease. These nodules have appeared since a 09/23/[address] ASSESSMENT/PLAN: nAdrade Mcfarlane is a/an 84 year old male referred for consultation to Palliative Medicine with the primary diagnosis of large pancreatic mass (s/p ERCP / EUS with pathology suspiciousfor adenocarcinoma) admitted with small bowel obstruction (post-ERCP pancreatitis vs malignant obstr uction). Secondary Diagnoses are atrial fibrillation on Warfarin, CVA, CAD, HTN, HLD, bipolar 1 disorder and moderate malnutrition Palliative Encounter / Goals of Care He has completed AD - scanned into chart. Spouse (Jie) is medical POA. He is a Full Code at this time. Patient will benefit from goals of care / advanced care planning discussions pending final determination of care plan. Medical oncology did evaluate on 01/03/25- OP follow-up for systemic treatment, CTchest completed for staging with pulmonary nodules suspicious for metastatic disease. We will remain available for goals discussions as indicated. Patient resides in [place], [place]- would be closer to follow @ [place]. This can be explored more prior to D/C. Emotional support, empathetic listening and reassurance provided. 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 10 mg (5 mg x 2 tabs) Q6H PRN - was using on a regular basis Pain has improved s/p NG tube placement Explained rationale for utilization of IV pain medications while NPO Recommend to continue Acetaminophen 1,000 mg IV Q6H ATC Continue hydromorphone 0.2 mg Q4H PRN moderate pain Continue hydromorphone 0.5 mg IV Q4H PRN severe pain Nausea/Vomiting Small Bowel Obstruction (suspect 2/2 pancreatic mass) Nausea/vomiting has improved s/p NG tube placement GI following- planning for EUS GJ placement tentative on 01/05/25 Ongoing medical management per primary service / GI Ondansetron 4 mg IV Q6H PRN nausea/vomiting Anorexia Moderate Malnutrition NPO at this time Nutrition following Might benefit from appetite stimulant (olanzapine) once SBO management is optimized/tolerating oralintake Thank you for allowing us to participate in the ongoing care of this patient. Please don't hesitate to call or page with any additional concerns. Cosigned by Vickie Bhakta MD at 01/04/2025 11:05 AM EDT * Anais Gregg MD - 01/03/2025 1:02 PM EDT Images from the original note were not included. TRANSFER RECEIVING NOTE - Hospital Medicine [facility]-[address] [address] Name: Andrade Mcfarlane Current Location: [facility] B640/B HANDOFF COMMUNICATION: Sending patient service: General surgery Accepting service: Hospital Medicine Sending attending aware of patient and transfer: yes Receiving attending aware of patient and transfer: yes Name of receiving attending provider: Anais Gregg MD Patient care is being assumed by receiving service: 1:12 PM in current location Reason for transfer: Not a surgical candidate. Will be transferred to Medicine Service. SUBJECTIVE: Andrade Mcfarlane is 84 y/o M with PMH of HTN, DLD, CAD, atrial fibrillation on coumadin, H/O [place] s/p CABG in 1990 and [place] s/p PCI x3 stents in 2011, H/O CVA. He was recently admitted to [facility] from 12/22 to 12/26/2024 after being transferred there from [facility] due to new findings of a pancreatic mass with biliary obstruction and GI evaluation. He had been having ongoing epigastric pain, radiating to the back, loss of appetite and weight loss more than 10 lb in last few weeks. Outside hospital CT scan showed large infiltrative pancreatic mass along with a right-sided basilar 1.3 cm solid nodules and lymph node enlargement and abdomen. At [facility] he underwent EUS, ERCP. His INR was reversed with Kcentra and vitamin K. Underwent biopsy aspiration, biliary sphincterectomy, one metallic stent placement in CBD. CA 19-9 level was 316. CEA neg. Hospital course complicated by post ERCP pancreatitis for which he was treated with IV fluids and pain management. He was recommended outpatient follow up with the Surgical Oncology, Medical Oncology and with biopsy follow up. Antibiotics for 7 days and hold anticoagulation for 5 days post procedure. He has to restart warfarin on 30 December with the warfarin clinic for his atrial fibrillation. To better control HTN, dose of lisinopril was increased to 20 twice daily from 20 daily. He was readmitted to [facility] again on 01/02/2025 due to abd discomfort, abd distention and nausea. WBC 19.25. CT abd showed small bowel obstruction concerning for pancreatic mass now causing obstruction. NG tube was placed and patient transferred to [facility] for surgical evaluation. Patient was evaluated by G eneral surgery and surgical Oncology. Per Surgical Oncology evaluation, pancreatic mass appears to involve SMA and abuts SMV/portal vein. They recommended GI evaluation for possible GJ Axios Stent placement to relieve obstruction and evaluation for neoadjuvant chemotherapy. Surgical pathology from 12/24: Final Diagnosis A. Pancreas, Head, EUS guided fine needle aspiration: Adequacy: Less than optimal. Category: Suspicious for malignancy (WHO International System). Interpretation: Atypical epithelial cells, suspicious for adenocarcinoma (see comment). A. Duodenum, biopsy: Duodenal mucosa with scattered lamina propria neutrophils (mildly active nonspecific duodenitis). Villous architecture is preserved and no significant intraepithelial lymphocytosis. At the time of my evaluation, patient is resting comfortably in bed. His wfie and so are at bedsideand were updated by me. Patient reports his abdominal pain is 3/10. Currently denies fevers, chills, chest pain, dyspnea, orthopnea, cough, URI sx. No nausea, vomiting or diarrhea. No abdominal cramping. Hasn't moved bowels in five days. Passing flatus. Voided very dark urine this AM. No dysuria, difficulty urinating or flank pain. No weakness, numbness, or paresthesias, No headache. No current mood issues. No new rashes, abrasions, ecchymosis, or lacerations. ROS otherwise negative unless stated in HPI. Lives with Jie in [place]. Independent in ADLs. Wishes to be Full Code. and son and OK to speak with Palliative Medicine for symptom management and establish care. CURRENT HOSPITAL MEDICATIONS: Note that completed medications (per the MAR) continue to display for 24 hours. Ordered medicationsto be given in the future also display. Current Facility-Administered Medications Medication Dose Route Frequency Provider Acetaminophen (Ofirmev) inj 1,000 mg 1,000 mg Intravenous Q6H Anais Gregg MD carBAMazepine (TEGretol) oral susp 100 mg 100 mg NG Tube TID(AM/NOON/HS) Anais Gregg MD HYDROmorphone (Dilaudid) inj 0.2 mg 0.2 mg IV Push Q4H PRN Anais Gregg MD HYDROmorphone (Dilaudid) inj 0.5 mg 0.5 mg IV Push Q4H PRN Anais Gregg MD Isolyte-S pH 7.4 infusion Intravenous Continuous Anais Gregg MD Latanoprost (Xalatan) 0.005 % ophthalmic solution 1 Drop 1 Drop Both eyes HS Anais Gregg MD Metoprolol Tartrate (Lopressor) inj 2.5 mg 2.5 mg IV Push Q6H Anais Gregg MD naloxone (Narcan) 0.4 MG/ML inj 0.4 mg 0.4 mg IV Push PRN Anais Gregg MD Pantoprazole (Protonix) inj 40 mg 40 mg IV Push Daily(AM) Anais Gregg MD potassium chloride 10 mEq in 100 mL ivpb LOCKED DOSE 10 mEq Peripheral IV Q1H Liam Whipple MD sodium chloride 0.9 % flush peripheral sean 3 mL 3 mL IV Push Q8H Anais Gregg MD timolol (Timoptic) 0.5 % ophthalmic solution 1 Drop 1 Drop Left eye Daily(AM) Anais Gregg MD TRANSFER MEDICATION RECONCILIATION COMPLETED? yes REVIEW OF SYSTEMS: As above OBJECTIVE: Most Recent Vital Signs: BP: 160 mmHg/68 mmHg (01/03/251116) Pulse: 100 (01/03/251116) Resp: 18 (01/03/251116) Temp: 36.61 C (01/03/251116) Temp Summary: Temp Min: 36.6 °C (97.9 °F) Max: 37.2 °C (99 °F) SpO2: 97 % (01/03/251116) O2 flow rate: Supplemental O2 Delivery: Room Air, None (01/03/251116) Vital Signs Last 24 Hours: Systolic BP: Most Recent Systolic BP Av.8 mmHg Min: 156 mmHg Max: 160 mmHg Temperature: Most Recent Temperature Av.9 C Min: 36.61 C Max: 37.22 C Pulse: Pulse Av.8 Min: 97 Max: 103 Respirations: Resp Av Min: 16 Max: 20 SpO2: SpO2 Av.3 % Min: 97 % Max: 99 % Intake/Output Summary (Last 24 hours) at 01/03/2025 1355 Last data filed at 01/03/2025 0925 Gross per 24 hour Intake 611.49 ml Output 270 ml Net 341.49 ml Body mass index is 19.3 kg/m². Wt Readings from Last 5 Encounters: 01/03/25 52.6 kg (115 lb 15.4 oz) 12/29/24 59.1 kg (130 lb 6.4 oz) 12/26/24 58.4 kg (128 lb 11.2 oz) 12/21/24 58.3 kg (128 lb 9.6 oz) 12/10/24 59.4 kg (131 lb) Constitutional: Chronically ill appearing elderly male patient appearing stated age. Mild to moderate malnourishment. No distress. Resting comfortably. Pleasant HEENT: Normocephalic and atraumatic. Moist mucus membranes. Sclera anicteric Neck: NGT in place. Supple. Normal ROM. No JVD noted. CV: Normal rate and regular rhythm. Resp: On room air. Good resp effort. Adequate air entry B/L. No audible wheezing. No crackles. Abdomen: Soft. Mild diffuse tenderness. No rebound. BS present Extremities: No peripheral edema. Peripheries Warm and Dry. : No roman Neurologic: Awake, Alert and oriented x3. No focal neurological deficits. Grossly sensory and motorintact. Psych: Not agitated. Normal mood and affect Volume status: Euvolemic LABS: Labs reviewed as indicated below: Lab results within last 7 days (see chart for full results) Units 01/03/25 0450 SODIUM mmol/L 141 POTASSIUM mmol/L 3.7 CHLORIDE mmol/L 94* CO2 mmol/L 27 BUN mg/dL 47* CREATININE mg/dL 1.5* Lab results within last 7 days (see chart for full results) Units 01/03/25 0450 CALCIUM mg/dL 9.2 Magnesium mg/dL 2.6 Phosphorus mg/dL 4.5 Albumin g/dL 3.8 Lab results within last 7 days (see chart for full results) Units 01/03/25 0450 12/29/24 1534 HGB g/dL 14.5 12.9* HCT % 45.5 40.5 WBC K/uL 18.38* 10.41 PLT K/uL 635* 430* IMAGING: Xray Abdomen 01/03/2025 FINDINGS There are sternotomy wires visualized. There are mediastinal clips visualized. There is a feeding tube in place with the tip and side port overlying the left upper quadrant of the abdomen assumed to be in the gastric lumen. The proximal side port is close to the gastroesophageal junction. There aresurgical clips in the right upper quadrant of the abdomen from previous procedure. There is also a biliary stent in the right upper quadrant of the abdomen. Air density visualized in the liver may represent pneumobilia versus portal venous gas. IMPRESSION 1. Feeding tube in place with the tip and side port overlying the left upper quadrant of the abdomen assumed to be in the gastric lumen. The proximal side port is close to the gastroesophageal junction and advancement by approximately 5 cm is recommended. 2. Air density visualized in the liver may represent pneumobilia versus portal venous gas. Further evaluation with CT scan may be performed. CT 01/02 performed at [facility] EUS and ERCP 12/24/2024 - 36 mm mass in the pancreatic head, the appearance was somewhat unusual and a fine-needle biopsy was performed - single segmental biliary stricture found, - biliary sphincterotomy was performed. - place a covered metal stent 10F for decompression of the biliary tree. IMPRESSION and PLAN: Principal Problem: SBO (small bowel obstruction) (HCC) (POA: Unknown) Active Problems: Coronary artery disease involving [place] coronary artery of [place] heart without angina pectoris (POA: Yes) History of [place] (myocardial infarction) (POA: Yes) Chronic atrial fibrillation (HCC) (POA: Yes) Chronic kidney disease with symptom management only, stage 3 (moderate) (HCC) (POA: Yes) Overview: Per CKD protocol HTN, goal below 140/90 (POA: Yes) Dyslipidemia, goal LDL below 70 (POA: Yes) Pancreatic mass (POA: Yes) Malnutrition of moderate degree (HCC) (POA: Yes) POA = Present On Admission Andrade Mcfarlane is a 84 year old male with hx of A fib on warfarin, CVA, CAD, HTN, HLD, BPD, pancreatic mass status post ERCP and EUS biopsy (pathology suspicious for adenocarcinoma) who presented to the hospital with abdominal pain and nausea or vomiting and concern for small bowel obstruction due to the mass Small bowel obstruction Recently 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 - Evaluated by GI and plan for EUS and possible GJ Axios Stent placement - Medical Oncology consult is pending - After discussing with patient, and son, Palliative Medicine was consulted for initial evaluation and ongoing symptom management - Patient needs staging workup as recommended by Medical Oncology. XIOMY on baseline CKD Patient's Cr fluctuated between 1.3-1.5 (eGFR 40-50) during 2022. More recently Cr was 1.1 likely after weight loss. Today it is 1.5. Likely Pre-renal in the setting of bowel obstruction and NG suction. Continue Isolyte @ 100 cc/hr Check BMP Q12 hours Replete electrolytes aggressively Incidental right basilar nodule - size of nodule is 1.3 cm need oupt follow up with oncology HTN Currently holding [employer]CHNICIAN Coreg 6.25 mg BID, lisinopril 20 mg BID, amlodipine 10 mg as patient is currently NPO. Continue IV Lopressor 2.5 mg Q6h. Can be uptitrated. Currently BP 156/81 Persistent atrial fibrillation (INR is 1.6) Diagosis for coumadin therapy is atrial fibrillation. No hx of recent DVT, PE, MVR, or CVA. CHADS score is 4 (Age, CAD, HTN). Hold Coumadin in anticipation of procedure. Does not need bridging at this time. Risk of bleeding outweighs the risk of stroke from A fib. Currently rate controlled. I discussed this plan with inpatient pharmacy at the time of Transfer and Pharmacy was in agreement. Bipolar disorder Switched to Carbamezepine 100 mg TID via NGT (from [employer]CHNICIAN 300 mg ER HS) GERD Switched to IV Pantoprazole 40 mg daily DVT ppx: Heparin due to XIOMY until Warfarin is resumed. I spent a total of 40 minutes coordinating, documenting, and providing care for this patient excluding time spent in the performance of separately billed services or time spent by another provider/QHP. I personally updated patient, his and son at bedside. I discussed with Dr. Duran and updated him prior to transfer to his service. documented in this encounter H&P Notes * Adolfo Hidalgo, - 01/05/2025 2:08 PM EDT Endoscopy Pre-Procedure Assessment Name: Andrade Mcfarlane Date: 01/05/2025 Time: 2:08 PM Procedure(s): Upper GI Endoscopy; with Indication(s) of evaluation of SBO for possible EUS-GJ Endoscopic Ultrasound; with Indication(s) of EUS-GJ Endoscopy Pre-Procedure Assessment: Prior to the procedure, [...] Admission medications Medication Sig Last Dose Discont. Ondansetron HCl 4 MG Oral Tablet Take 1 Tablet by mouth every 6 hours as needed for Nausea. oxyCODONE HCl 5 MG Oral Tablet (Oxy IR) Take 1-2 Tablets by mouth every 6 hours as needed for Pain,Severe (take 10 mg for pain greater than 7 out of 10.). amLODIPine Besylate 10 MG Oral Tablet (Norvasc) TAKE 1 TABLET BY MOUTH EVERY MORNING Docusate Sodium 100 MG Oral Capsule (Colace) Take 1 Capsule by mouth in the morning and 1 Capsule before bedtime. Amoxicillin-Pot Clavulanate 875-125 MG Oral Tablet (Augmentin) Take 1 Tablet by mouth in the morning and 1 Tablet before bedtime. Do all this for 6 days. Lisinopril 20 MG Oral Tablet (Prinivil) Take 1 Tablet by mouth 2 times a day with morning and evening meals. Polyethylene Glycol 3350 17 GM Oral Packet (Miralax) Take 1 Packet by mouth in the morning. traMADol HCl 50 MG Oral Tablet (Ultram) Take 1 Tablet by mouth every 6 hours as needed for Pain, Moderate or Pain, Severe. Warfarin Sodium 2 MG Oral Tablet (Coumadin) TAKE 1 TABLET BY MOUTH DAILY FRIDAY, FRIDAY,FRIDAY AND 2 TABLETS ALL OTHER DAYS OR DIRECTED BY [facility] CL[facility] Do not start before December 30, 2024. Acetaminophen 325 MG Oral Tablet (Tylenol) Take 1 Tablet by mouth every 6 hours as needed for Other(stomach pain). Famotidine 20 MG Oral Tablet (Pepcid) Take 1 Tablet by mouth 2 times a day as needed for Heartburn or Other (stomach pain). triamcinolone 0.1% / cerave 1:1 1:1 TOP cream Apply topically to affected area every 6 hours as needed for Itching (for itchy ankles/legs). Apply to ankles/legs Fluorouracil 5 % External Cream Apply topically to affected area 2 times a day. Apply to forehead. Omeprazole 40 MG Oral Capsule Delayed Release (PriLOSEC) Take 1 Capsule by mouth in the morning. 1 hour before the first meal of the day. carBAMazepine ER 300 MG Oral Capsule Extended Release 12 Hour (Carbatrol) take 1 CAPSULE by mouth at bedtime Carvedilol 6.25 MG Oral Tablet (Coreg) Take 1 Tablet by mouth in the morning and 1 Tablet before bedtime. Rosuvastatin Calcium 40 MG Oral Tablet (Crestor) TAKE ONE TABLET BY MOUTH EVERY EVENING WITH dinner Meclizine HCl 25 MG Oral Tablet (Antivert) Take 1 Tablet by mouth 3 times a day as needed. Timolol Hemihydrate 0.5 % Ophthalmic Solution (Betimol) Instill 1 Drop into the left eye in the morning. Vitamin D 50 MCG (2000 UT) Oral Capsule Take 1 Capsule by mouth at bedtime. aspirin 81 MG chewable tablet mornings latanoprost (XALATAN) 0.005 % ophthalmic solution Instill 1 Drop into both eyes at bedtime. 1 drop,left eye only, bedtime Review of patient's allergies indicates: Allergen Reactions Environmental [Pollen] Hay fever per patient BP 174/86 | Pulse 77 | Temp 36 °C (96.8 °F) (Tympanic) | Resp 17 | Ht 1.651 m (5' 5") | Wt 52.6 kg (115 lb 15.4 oz) | SpO2 97% | BMI 19.30 kg/m² | BSA 1.55 m² Physical Exam: Mental Status Examination: alert and oriented. Airway Examination: normal oropharyngeal airway and neck mobility. Respiratory Examination: clear to auscultation. CV Examination: normal. ASA Grade: III - A patient with severe systemic disease. Abdomen: soft This patient has undergone a preprocedural evaluation. A determination has been made to proceed with the planned procedure under [facility] procedural guidelines and the [facility] Non-Emergent, Elective Medical Services and Treatment Recommendations [...] the potential for increasing morbidity or mortality. [facility]ED ENDOSCOPY PRE-PROCEDURE NOTE: EUS-GUIDED GASTROENTEROSTOMY vs ENTERAL STENT: I discussed the case with patient. Risks, benefits and alternatives (including surgical gastrojejunostomy) were explained. Patient is high risk for immediate eduardo/intra/post-procedural risks of cardiovascular event, bleeding, bowel perforation, peritonitis, stent migration/misdeployment requiring emergent Interventional Radiology or Surgical intervention requiring extended hospitalization and/or ICU care, as well as del ayed complications of stent occlusion, or stent migration requiring repeat endoscopic intervention explained to the patient and family. Patient may need assisted enteral or parenteral nutritional support despite or even as a result of endoscopic drainage. The off-label use of the lumen-apposing Axios stent for this procedure was also explained. They were given ample time to ask question and the procedure was explained with colored diagram charts. Patient was explained the possibility of not being safely able to perform the EUS-GE if there is nosafe window or if there is stent misdeployment, in which case we can attempt a same-session or at alater date enteral stenting instead. Patient agrees to the above procedure and a written informed consent for EUS obtained from the patient. After reviewing the risks and benefits, the patient is deemed in satisfactory condition to undergo the procedure. The anesthesia plan is to use general anesthesia. Adolfo Hidalgo DO 01/05/2025 * Roger Varghese DO - 01/03/2025 5:00 AM EDT Images from the original note were not included. HISTORY AND PHYSICAL EXAMINATION - Trauma/Emergency Surgery [address] [id number] Name: Andrade Mcfarlane Location: Room/bed info not found Date: 01/02/2025 Time: 11:43 PM PRESENTING PROBLEM: pancreatic mass causing SBO HISTORY OF PRESENT ILLNESS: Andrade Mcfarlane is a 84 year old, male with with history of atrial fibrillation/flutter on warfarin,BPD, [place] s/p CABG in 1990 and [place] s/p PCI x3 stents in 2011, who presents as a transfer from [facility] ED for a known pancreatic mass causing SBO. Patient was recently found to have a large pancreat ic mass seen on CT abdomen on 12/21. He was then transferred to [facility] where he was diagnosed with obstructed jaudnice and had an EUS and ERCP on 12/24. He had a biopsy aspiration, biliary sphincterotomy and placement of a stent in his CBD. Pathology of the EUS FNA was suspicious for malignancy. His PCPreferred him to medical/surgical oncology. Since his recent hospital admission from 12/22 - 12/26, hefollowed up with his PCP on 12/29. Patient reports that for the past couple of days, his abdominal pain has worsened. He admits to vomiting 1x yesterday. His pain worsened to the point that he felt like he had to come into the hospital. Outside of vomiting yesterday, he has had minimal nausea. He has not had a bowel movement in 5 days, but is passing flatus. Minimal appetite for the last few days. He takes coumadin, which he last took two nights ago (01/01/2025). PSHx: appendectomy, open left inguinal hernia repair, cholecystectomy, CABG HOSPITAL PROBLEM LIST: Active Problems: * No active hospital problems. * POA = Present On Admission PAST MEDICAL HISTORY: Past Medical History: Diagnosis Date Atrial fibrillation and flutter (HCC) Does not realize when he goes in to it BCC (basal cell carcinoma), face Moh's done Bipolar disorder (manic depression) (HCC) Glaucoma Manic episode (HCC) 2000 1 week inpatient stay [place] (myocardial infarction) ([facility]) 2011 3 in 2011 - 3 stents and an ablation done S/P CABG (coronary artery bypass graft) 1990 PAST SURGICAL HISTORY: Past Surgical History: Procedure Laterality Date COLONOSCOPY, DIAGNOSTIC (RECTUM) 12/30/2018 adenomatous polyps, diverticulosis, repeat 3 yrs/COLONOSCOPY FLEXIBLE PROXIMAL DIAGNOSTIC performedby Jojo Pearson MD at ENDOSCOPY [facility] COLONOSCOPY, DIAGNOSTIC (RECTUM) 08/19/2022 benign adenomatous polyps / COLONOSCOPY FLEXIBLE PROXIMAL DIAGNOSTIC performed by Jojo Pearson MD at ENDOSCOPY [facility] CORONARY ARTERIES BYPASS, THREE 1990 EGD, W/ENDOSCOPIC US 10/22/2023 mild gastritis/multiple stones gallbladder/cystic lesion pancreatic head/biopsies show mild gastritis, serous cyst/ESOPHAGOGASTRODUODENOSCOPY (EGD), FLEXIBLE, TRANSORAL, ENDOSCOPIC ULTRASOUND performed by Sylvia Horta DO at ENDOSCOPY [facility] EGD, W/ENDOSCOPIC US N/A 12/24/2024 ESOPHAGOGASTRODUODENOSCOPY (EGD), FLEXIBLE, TRANSORAL, ENDOSCOPIC ULTRASOUND performed by Sylvia Horta DO at OR [facility] ERCP, DIAGNOSTIC, SPECIMEN COLLECTION N/A 12/24/2024 ENDOSCOPIC RETROGRADE CHOLANGIOPANCREATOGRAPHY (ERCP) DIAGNOSTIC performed by Sylvia Horta DO at OR [facility] REMOVAL OF APPENDIX FAMILY HISTORY: Family History Problem Relation Name Age of Onset Heart Disorder Mother [place] Cancer Father Multiple myeloma Glaucoma Brother Heart Disorder Brother SOCIAL HISTORY: Social History Tobacco Use Smoking status: Former Current packs/day: 0.50 Average packs/day: 0.5 packs/day for 3.0 years (1.5 ttl pk-yrs) Types: Cigarettes Smokeless tobacco: Never Vaping Use Vaping status: Never Used Substance Use Topics Alcohol use: Not Currently Drug use: No CURRENT HOSPITAL MEDICATIONS: Note that completed medications (per the MAR) continue to display for 24 hours. Ordered medicationsto be given in the future also display. Current Facility-Administered Medications Medication Dose Route Frequency Provider Acetaminophen (Ofirmev) inj 1,000 mg 1,000 mg Intravenous Q6H Aron Land MD carBAMazepine ER (Carbatrol) cap 300 mg 300 mg Oral QHS Aron Land MD HYDROmorphone (Dilaudid) inj 0.2 mg 0.2 mg IV Push Q4H PRN Aron Land MD HYDROmorphone (Dilaudid) inj 0.5 mg 0.5 mg IV Push Q4H PRN Aron Land MD Isolyte-S pH 7.4 infusion Intravenous Continuous Aron Land MD Latanoprost (Xalatan) 0.005 % ophthalmic solution 1 Drop 1 Drop Both eyes HS Aron Land MD Metoprolol Tartrate (Lopressor) inj 2.5 mg 2.5 mg IV Push Q6H Aron Land MD naloxone (Narcan) 0.4 MG/ML inj 0.4 mg 0.4 mg IV Push PRN Aron Land MD Pantoprazole (Protonix) inj 40 mg 40 mg IV Push Daily(AM) Aron Land MD rosuvastatin (Crestor) tab 40 mg 40 mg NG Tube Q 1700 Aron Land MD sodium chloride 0.9 % flush peripheral sean 3 mL 3 mL IV Push Q8H Aron Land MD timolol (Timoptic) 0.5 % ophthalmic solution 1 Drop 1 Drop Left eye Daily(AM) Aron Land MD ALLERGIES: Environmental [pollen] ROS: ROS negative other than what is listed in HPI. PHYSICAL EXAMINATION: Most Recent Vital Signs: BP: 158 mmHg/81 mmHg (01/03/25452) Pulse: 106 (01/03/25452) Resp: 16 (01/03/25452) Temp: 37.22 C (01/03/25452) Temp Summary: Temp Min: 37.2 °C (99 °F) Max: 37.2 °C (99 °F) SpO2: 98 % (01/03/25452) O2 flow rate: Supplemental O2 Delivery: Constitutional: no acute distress, appropriate mood, hard of hearing, NGT in place Head: normocephalic, atraumatic Eyes: sclera and conjunctiva normal Neck: supple, trachea midline, normal range of motion CV: warm and well perfused Chest: symmetric and normal respiratory effort Abdomen: soft, mod distended, no guarding or rebound. Tender to palpation in epigastric region Extremities: no edema, no cyanosis Skin: warm, dry Neuro: alert,conversant, motor function is grossly intact LABS: Labs reviewed as indicated below: IMAGING: CT 01/02 performed at [facility] IMPRESSION and PLAN: Andrade Mcfarlane is a 84 year old M with a large pancreatic mass that is now likely causing a malignant obstruction. Will benefit from NGT decompression and possible surgical intervention to relieve obstruction. Obstruction may be secondary to post-ERCP pancreatitis or malignant obstruction. - NGT to LCS - surgical oncology consult - medical oncology consult - gastroenterology consult - palliative consult - Pain: tylenol, oxy - Nausea: zofran - Diet: NPO except meds - Fluids: isolyte 100 ml/hr - Abx: none - DVT ppx: TEDs/SCDs, lovenox - [employer]CHNICIAN meds: Resumed: carvedilol (ordered as metoprolol q6h 2.5), rosuvastatin, timolol, latanoprost, Carbamezapine (ordered as oral suspension) Held: amlodipine, lisinopril, warfarin, asa, famotidine, prilosec, meclizine, timolol, - Resp: IS - Ambulation: OOB - Dispo:Med Surg Patient to be discussed with Dr. Robin Varghese, DO General Surgery PGY-1 01/03/2025 REFERRING PHYSICIAN: 1Glen Henley MD PRIMARY CARE PHYSICIAN: Bubba Espinoza DO Cosigned by Linda Kelly MD at 01/03/2025 5:55 AM EDT Associated attestation - Linda Kelly MD - 01/03/2025 5:55 AM EDT I saw and evaluated the patient today. I have reviewed the resident/fellow physician note and agreewith the following changes. This is a 84 year old male with a history of recent diagnosis of pancreatic head mass who presents as transfer from OSH after being found to have proximal SBO thought to be secondary to pancreatic head mass. He recently had EGD/EUS with CBD stent placement and biopsy concerning for adenocarcinoma. He was scheduled to see surgical oncology here on 01/07. Pt states that he has been vomiting and not able to keep anything down for about the past day. Still passing flatus. Nausea did improve somewhat with NGT placement at OSH. Pt is on coumadin for afib and last dose was 01/01. BP 156/81 | Pulse 103 | Temp 37.2 °C (99 °F) | Resp 16 | Ht 1.651 m (5' 5") | Wt 52.6 kg (115 lb 15.4 oz) | SpO2 98% | BMI 19.30 kg/m² | BSA 1.55 m² GEN: NAD, resting comfortably in bed HENT: MMM, trachea midline, no scleral icterus, NGT in place with bilious output. CHEST: breathing comfortably on RA, symmetric chest rise ABD: soft, nontender, mildly distended, no rebound/guarding EXT: WWP Labs and imaging reviewed. 84 year old male with pancreatic head mass and SBO -no emergent/urgent surgical intervention -will consult oncology, surgical oncology and GI -continue NGT decompression -IV pain meds prn Linda Kelly MD Trauma and General Surgery Critical Care documented in this encounter Procedure Notes * Charli Coleman MD - 01/05/2025 2:13 PM EDTAssociated Order(s): UPPER ENDOSCOPIC U/S [facility] Patient Name: Andrade Mcfarlane Procedure Date: 01/05/2025 2:13 PM Date of : 1940 Admit Type: Inpatient Note Status: Finalized Date of : 1940 Admit Type: Inpatient Age: 84 Room: Endo - Room 9 Gender: Male Note Status: Finalized Procedure: Upper EUS Indications: Abnormal abdominal/pelvic CT scan, EUS-guided gastroenterostomy (EUS-GE) Providers: Jay Newman DO (Doctor), Chente Cordova RN, Sherita Grullon RN, Danae Turner (Assisting Doctor) Patient Profile: This is an 84 year old male. Refer to note in patient chart for documentation of history and physical. Referring MD: Charli Proctor, Juliette Cheatham DO Medicines: General Anesthesia, Cipro 400 mg IV, Glucagon 1.5 mg IV Complications: No immediate complications. Estimated blood loss: None. Procedure: Pre-Anesthesia Assessment: - - Prior to the procedure, a History [...] to the procedure by the physician, the nurse, the finish mixer and the product development technician. The procedure was verified in the endoscopy suite. - See pre-anesthesia H&P in [facility]. - The medication list for this patient has been reviewed prior to the procedure and has been determined that the patient may proceed with the planned study. Any medication changes made as a result of the findings of this procedure have been discussed with the patient and/or district representative at the time of discharge from the department. - Immediately prior to administration of medications, the patient was re- assessed for adequacy to receive sedatives. - After obtaining informed consent, the endoscope was passed under direct vision. All instruments were visually inspected immediately before and after removal from the patient to ensure they are fully intact. - Throughout the procedure, the patient's blood pressure, pulse, and oxygen saturations were monitored continuously. - The supervising physician was present for the entire procedure from scope insertion until scope withdrawal. After obtaining informed consent, the endoscope was passed under direct vision. All instruments were visually inspected immediately before and after removal from the patient to ensure they are fully intact. Throughout the procedure, the patient's blood pressure, pulse, and oxygen saturations were monitored continuously. The upper EUS was technically difficult and complex due to EUS-gastroenterostomy creation. Successful completion of the procedure was aided by performing the maneuvers documented (below) in this report. The patient tolerated the procedure well. The [id number] Endoscope ([id number]) was introduced through the mouth, and advanced to the stomach for ultrasound examination. Findings & Specimens: EUS-GUIDED GASTROENTEROSTOMY (EUS-GE): The duodenum and jejunum was filled with methylene blue mixed with sterile water and contrast to distend the distal duodenum and proximal jejunum. The decision was made to create a gastro-enterostomy using the AXIOS stent system. Once an appropriate position in the stomach was identified, the common wall between the stomach and the jejunum was interrogated utilizing color Doppler imaging to identify interposed vessels. The AXIOS stent and electrocautery device was introduced through the working channel. Current was applied to the cautery tip and then used to increase the diameter of the stoma. The AXIOS device was advanced into the jejunum using freehand puncture technique, and a 20 x 10 mm AXIOS stent was placed with the flanges in close approximation to the pierce of the stomach and the jejunum through the gastro-enterostomy. The stent was successfully placed. I personally interpreted the fluoroscopic images. The EUS-guided gastrojejunostomy was successfully performed under endosonographic and fluoroscopic guidance. I personally interpreted the fluoroscopic images. Placement of a long 0.025 inch long angled Visiglide guidewire was attempted. This passed successfully through the stent. A biliary balloon cathetor was passed successfully over the wire and contrast was injected into the lumen to confirm sppropriate stent position. STENT DILATION: A TTS dilator was passed through the scope. Dilation of the stent lumen with a 12-13.5-15 mm x 3 cm CRE-Rx balloon dilator was performed to 15 mm under fluoroscopic guidance. The orojejunal drain was then removed and gastrojejunal patency was confirmed via relook endoscopy and with contrast injection. I personally interpreted the fluoroscopic images Impression: EUS-guided gastrojejunostomy formed with 20 mmx 10 mm Axios stent. Recommendation: - Return the patient to the hospital [facility] for ongoing care - Patient counselled about possibility of stent migration, with recurrence of gastric obstruction, requiring repeat endoscopy. - Full liquid diet for 24 hours, and advance to mechanical soft as tolerated. Do not advance beyond mechanical soft due to risk of stent occlusion or migration. Jay Newman DO 01/05/2025 4:38:56 PM This report has been signed electronically. Danae Turner, Estimated Blood Loss: Estimated blood loss: none. * Charli Coleman MD - 01/05/2025 2:10 PM EDTAssociated Order(s): UPPER GI ENDOSCOPY [facility] Patient Name: Andrade Mcfarlane Procedure Date: 01/05/2025 2:10 PM Date of : 1940 Admit Type: Inpatient Note Status: Finalized Date of : 1940 Admit Type: Inpatient Age: 84 Room: Endo - Room 9 Gender: Male Note Status: Finalized Procedure: Upper GI endoscopy Indications: Abnormal CT of the GI tract, Suspected gastric outlet obstruction, For therapy of gastric outlet obstruction Providers: Jay Newman DO (Doctor), Chente Cordova RN, Sherita Grullon RN, Danae Turner (Assisting Doctor) Patient Profile: This is an 84 year old male. Refer to note in patient chart for documentation of history and physical. Referring MD: Marina Soto Sara F. West, DO Medicines: General Anesthesia, Cipro 400 mg IV, Glucagon 1.5 mg IV Complications: No immediate complications. Estimated blood loss: None. Procedure: Pre-Anesthesia Assessment: - - Prior to the procedure, a History [...] to the procedure by the physician, the nurse, the finish mixer and the product development technician. The procedure was verified in the endoscopy suite. - See pre-anesthesia H&P in [facility]. - The medication list for this patient has been reviewed prior to the procedure and has been determined that the patient may proceed with the planned study. Any medication changes made as a result of the findings of this procedure have been discussed with the patient and/or district representative at the time of discharge from the department. - Immediately prior to administration of medications, the patient was re- assessed for adequacy to receive sedatives. - After obtaining informed consent, the endoscope was passed under direct vision. All instruments were visually inspected immediately before and after removal from the patient to ensure they are fully intact. - Throughout the procedure, the patient's blood pressure, pulse, and oxygen saturations were monitored continuously. - The supervising physician was present for the entire procedure from scope insertion until scope withdrawal. After obtaining informed consent, the endoscope was passed under direct vision. All instruments were visually inspected immediately before and after removal from the patient to ensure they are fully intact. Throughout the procedure, the patient's blood pressure, pulse, and oxygen saturations were monitored continuously. The [id number] Endoscope ([id number]) was introduced through the mouth, and advanced to the second part of duodenum. The upper GI endoscopy was accomplished without difficulty. The patient tolerated the procedure well. Findings & Specimens: The Z-line was regular and was found 39 cm from the incisors. LA Grade D (one or more mucosal breaks involving at least 75% of esophageal circumference) esophagitis with no bleeding was found in the middle and lower thirds of the esophagus. Localized mildly erythematous mucosa without bleeding was found in the gastric antrum. An acquired malignant-appearing, intrinsic severe stenosis was found in the second portion of the duodenum and was non-traversed. EUS-GUIDED GASTROENTEROSTOMY (EUS-GE): A 0.025" long angled Visiglide guidewire was passed through the therapeutic endoscope and maneuvered across the luminal stenosis, and then a biliary balloon catheter was passed successfully over the wire and contrast was injected into the lumen to ascertain the length of the stenosis under fluoroscopic guidance. I personally interpreted the fluoroscopic images A 10 Fr orojejunal drain was passed into the proximal jejunum over the guidewire. The therapeutic endoscope was exchanged off to a therapeutic echoendoscope, passed along side the catheter. Impression: - Z-line regular, 39 cm from the incisors. - LA Grade D esophagitis with no bleeding. - Erythematous mucosa in the antrum. - Duodenal obstruction s/p margarita-jejunal catheter placement for EUS guided GJ Recommendation: - Proceed with EUS - PPI daily Jay Newman DO 01/05/2025 4:36:37 PM This report has been signed electronically. Danae Turner, Estimated Blood Loss: Estimated blood loss: none. * Matt Muñoz MD - 01/03/2025 2:47 PM EDTAssociated Order(s): EKG REASON FOR STUDY: Arrhythmia CONCLUSIONS: Atrial fibrillation Nonspecific ST abnormality When compared with ECG of 22-Dec-2024 22:47, Borderline criteria for Inferior infarct are no longer Present Non-specific change in ST segment in Anterior leads T wave inversion more evident in Anterior-lateral leads Ventricular Rate: 91 Atrial Rate: 86 QRS Duration: 86 QT/QTc: 360/442 ms P-R-T [place]: 0 : 83 : 166 degrees documented in this encounter Consult Notes * Marguerite Avalos, PT - 01/05/2025 8:10 AM EDTAssociated Order(s): ADULT PHYSICAL THERAPY CONSULT IP Physical Therapy - General Evaluation [address] [address] Name: Andrade Mcfarlane Location: [facility] B640/B Date: 01/05/2025 Time: 8:10 AM Andrade Mcfarlane is a/an 84 year old male. Patient Status: Inpatient Insurance: Payor: MEDICARE Plan: MEDICARE A AND B Product Type: *No Product type* Payor: [employer] Plan: [employer] Product Type: *No Product type* Patient Seen: at bedside, nursing cleared patient for therapy Patient Identified By: Name, ID Band and Date Diagnosis: small bowel obstruction (01/05/25809) Status of treatment: Discontinue services (01/05/25809) Orders: PT evaluation and treatment;OOB (01/05/25809) Precautions: (NGT) (01/05/25809) Total Treatment Time--free text: 20 (01/05/25809) Subjective: Patient agreeable to PT evaluation. Past Medical History: Past Medical History: Diagnosis Date Atrial fibrillation and flutter (HCC) Does not realize when he goes in to it BCC (basal cell carcinoma), face Moh's done Bipolar disorder (manic depression) (HCC) Glaucoma Manic episode (HCC) 2000 1 week inpatient stay [place] (myocardial infarction) (HCC) 2011 3 in 2011 - 3 stents and an ablation done S/P CABG (coronary artery bypass graft) 1990 Past Surgical History: Past Surgical History: Procedure Laterality Date COLONOSCOPY, DIAGNOSTIC (RECTUM) 12/30/2018 adenomatous polyps, diverticulosis, repeat 3 yrs/COLONOSCOPY FLEXIBLE PROXIMAL DIAGNOSTIC performedby Jojo Pearson MD at ENDOSCOPY [facility] COLONOSCOPY, DIAGNOSTIC (RECTUM) 08/19/2022 benign adenomatous polyps / COLONOSCOPY FLEXIBLE PROXIMAL DIAGNOSTIC performed by Jojo Pearson MD at ENDOSCOPY [facility] CORONARY ARTERIES BYPASS, THREE 1990 EGD, W/ENDOSCOPIC US 10/22/2023 mild gastritis/multiple stones gallbladder/cystic lesion pancreatic head/biopsies show mild gastritis, serous cyst/ESOPHAGOGASTRODUODENOSCOPY (EGD), FLEXIBLE, TRANSORAL, ENDOSCOPIC ULTRASOUND performed by Sylvia Horat DO at ENDOSCOPY [facility] EGD, W/ENDOSCOPIC US N/A 12/24/2024 ESOPHAGOGASTRODUODENOSCOPY (EGD), FLEXIBLE, TRANSORAL, ENDOSCOPIC ULTRASOUND performed by Sylvia Horta DO at [facility] ERCP, DIAGNOSTIC, SPECIMEN COLLECTION N/A 12/24/2024 ENDOSCOPIC RETROGRADE CHOLANGIOPANCREATOGRAPHY (ERCP) DIAGNOSTIC performed by Sylvia Horta DO at OR [facility] REMOVAL OF APPENDIX Social History/Disposition Lives with: Spouse/significant other (01/05/25809) Assistance available: Yes (01/05/25809) Dwelling Type: Multi-story home (01/05/25809) Entry Steps: None (01/05/25809) Bedroom Location: 1st floor (01/05/25809) Bath location: 1st floor shower (01/05/25809) Prior Level of Function Reported by: Patient (01/05/25809) Ambulation: Ambulatory without device (01/05/25809) Devices at home: Rolling walker (01/05/25809) Observations Consciousness: Alert (01/05/25809) Orientation: Oriented times 4 (01/05/25809) Psychosocial: Patient can converse in a social setting (01/05/25809) Other Findings: Yes (01/05/25809) Findings: Light touch sensation (01/05/25809) Light Touch Sensation Results: Intact;LLE;RLE (01/05/25809) Sitting Posture: Rounded shoulders (01/05/25809) Standing Posture: Rounded shoulders (01/05/25809) Safety Awareness: Patient verbalizes insight of current deficits;Patient demonstrates carryover of insight during functional tasks (01/05/25809) Oxygen: Room air (01/05/25809) Pain: No complaints of pain P.T. Bed Mobility Supine-Sit: Modified Independent (01/05/25809) Transfers Sit-Stand: Modified Independent (01/05/25809) Stand-Sit: Modified Independent (01/05/25809) Ambulation Assist: Modified Independent (01/05/25809) Distance Ambulated (feet): 400 (01/05/25809) Assistive Devices: Rolling walker (per patient request) (01/05/25809) Ambulatory safety: Patient verbalizes insight of current deficits;Patient demonstrates carryover ofinsight during functional tasks (01/05/25809) Balance Sit (Static): Good - (01/05/25809) Sit (Dynamic): Good - (01/05/25809) Stand (Static): Good - (01/05/25809) Stand (Dynamic): Good - (01/05/25809) Patient Education Review of Precautions: Fall (role of PT) (01/05/25809) Safety Awareness: Patient verbalizes insight of current deficits;Patient demonstrates carryover of insight during functional tasks (01/05/25809) Preferred learning method: Combination (01/05/25809) Barriers to learning: None (01/05/25809) Method of Education: Verbalized to patient (01/05/25809) Topic of Education: Safety with mobility, Goals/plan of care, Use of assistive device, Fall prevention, and role of PT Treatment Provided: Evaluation Low Complexity 20 minutes - 98920: Patient was alert during treatment session. Low complexity evaluation performed with indication of no personal factors or comorbidities that impact plan of care. Alarm Status Patient positioned in: Chair (01/05/25809) With: Pressure pad alarm intact and functioning and call crabtree in reach (01/05/25809) Following session patient seated OOB in chair with chair alarm activated and cord plugged into callbell system. Assessment: Patient is an 84 y/o male with dx small bowel obstruction who presents at a modified independent level with functional mobility with use of rolling walker for ambulation. Patient expresses no concerns in regard to return to home at current functional level. No further skilled PT services deemed necessary at this time. Treatment Plan: Discontinue from Physical Therapy Services AM-PAC Score With Stairs : 24 (01/05/25809) A portion of this AM-PAC assessment not scored based on functional assessment; rather clinical decision making utilized based on current findings and/or prior level of function. Please refer to future AM-PAC calculations of functional ability as they become available. * Jade Garcia OT - 01/05/2025 8:10 AM EDTAssociated Order(s): ADULT OCCUPATIONAL THERAPY CONSULT IP GENERAL EVALUATION - Occupational Therapy [address] [address] Name: Andrade Mcfarlane Location: [facility] B6/B Date: 01/05/2025 Time: 8:10 AM Andrade Mcfarlane is a 84 year old male. Patient Status: Inpatient Insurance: Payor: MEDICARE Plan: MEDICARE A AND B Product Type: *No Product type* Payor: [employer] Plan: [employer] Product Type: *No Product type* Patient Seen: at bedside, nursing cleared patient for therapy Patient Identified By: Name, ID Band and Date Diagnosis: SBO (01/05/25809) Status of treatment: Discontinue services (01/05/25809) Orders: OT evaluation and treatment (01/05/25809) Weight Bearing Status: Weight bearing as tolerated (01/05/25809) Total Treatment Time: 23 (01/05/25809) Past Medical History: Past Medical History: Diagnosis Date Atrial fibrillation and flutter (HCC) Does not realize when he goes in to it BCC (basal cell carcinoma), face Moh's done Bipolar disorder (manic depression) (HCC) Glaucoma Manic episode (HCC) 2000 1 week inpatient stay [place] (myocardial infarction) (HCC) 2011 3 in 2011 - 3 stents and an ablation done S/P CABG (coronary artery bypass graft) 1990 Past Surgical History: Past Surgical History: Procedure Laterality Date COLONOSCOPY, DIAGNOSTIC (RECTUM) 12/30/2018 adenomatous polyps, diverticulosis, repeat 3 yrs/COLONOSCOPY FLEXIBLE PROXIMAL DIAGNOSTIC performedby Jojo Pearson MD at [facility]COPY [facility] COLONOSCOPY, DIAGNOSTIC (RECTUM) 08/19/2022 benign adenomatous polyps / COLONOSCOPY FLEXIBLE PROXIMAL DIAGNOSTIC performed by Jojo Pearson MD at [facility]COPY [facility] CORONARY ARTERIES BYPASS, THREE 1990 EGD, W/ENDOSCOPIC US 10/22/2023 mild gastritis/multiple stones gallbladder/cystic lesion pancreatic head/biopsies show mild gastritis, serous cyst/ESOPHAGOGASTRODUODENOSCOPY (EGD), FLEXIBLE, TRANSORAL, ENDOSCOPIC ULTRASOUND performed by Sylvia Horta DO at [facility]COPY [facility] EGD, W/ENDOSCOPIC US N/A 12/24/2024 ESOPHAGOGASTRODUODENOSCOPY (EGD), FLEXIBLE, TRANSORAL, ENDOSCOPIC ULTRASOUND performed by Sylvia Horta DO at OR [facility] ERCP, DIAGNOSTIC, SPECIMEN COLLECTION N/A 12/24/2024 ENDOSCOPIC RETROGRADE CHOLANGIOPANCREATOGRAPHY (ERCP) DIAGNOSTIC performed by Sylvia Horta DO at OR [facility] REMOVAL OF APPENDIX Social History/Disposition Lives with: Spouse/significant other (01/05/25809) Assistance available: Yes (01/05/25809) Dwelling Type: Multi-story home (01/05/25809) Entry Steps: None (through the garage) (01/05/25809) Inside Steps: 11-15 (01/05/25809) Bedroom Location: 1st floor (01/05/25809) Bath location: 1st floor shower;2nd floor full bath (01/05/25809) Prior Level of Function Reported by: Patient (01/05/25809) Ambulation: Ambulatory without device (01/05/25809) Grooming: Independent (01/05/25809) Bathing: Independent (01/05/25809) Dressing: Independent (01/05/25809) Eating: Independent (01/05/25809) Toileting: Independent (01/05/25809) Meal Prep: Dependent (01/05/25809) Homemaking: Assistance (01/05/25809) Shopping: Independent (01/05/25809) Money Management: Independent (01/05/25809) Occupation/Leisure Skills: Retired (01/05/25809) Driving: Yes (01/05/25809) Durable Medical Equipment at home: Standard walker;Shower chair;Straight cane (01/05/25809) Subjective: patient was pleasant and cooperative, agreeable to OT evaluation Pain: No complaints of pain Observations Consciousness: Alert (01/05/25809) Orientation: Oriented times 4 (01/05/25809) Psychosocial: Patient can communicate basic needs;Patient can converse in a social setting (01/05/25809) Sitting posture: Forward head;Rounded shoulders (01/05/25809) Standing posture: Forward head;Rounded shoulders (01/05/25809) Safety awareness: The Patient verbalizes insight of current deficits. (01/05/25809) Other Findings Endurance: Functional activity;Good (01/05/25809) Light touch sensation: LUE;RUE;Intact (01/05/25809) Coordination: LUE;RUE;Intact (01/05/25809) Oxygen: Room air (01/05/25809) Upper extremity status: Patient demonstrates WNL active ROM bilateral UE. Patient demonstrates 4+/5 strength throughout B UE. Current Functional Status: Self Care Eating: (NPO) (01/05/25809) Grooming: Modified Independent (to wash face) (01/05/25809) Dressing Upper Body: Modified Independent (to vladislav robe) (01/05/25809) Lower Body: Modified Independent (to vladislav slippers) (01/05/25809) Functional Ambulation Assistive Device: Rolling walker (01/05/25809) Distance in feet:: 400 (01/05/25809) Level of Assistance: Modified Independent (01/05/25809) Bed Mobility Supine-Sit: Modified Independent (01/05/25809) OT Transfers Sit-Stand: Modified Independent (01/05/25809) Stand-Sit: Modified Independent (01/05/25809) Balance Sit (Static): Good - (01/05/25809) Sit (Dynamic): Good - (01/05/25809) Stand (Static): Good - (01/05/25809) Stand (Dynamic): Good - (01/05/25809) Alarm Status Patient positioned in: Chair (01/05/25809) With: Pressure pad alarm intact and functioning and call crabtree in reach (01/05/25809) Following session patient seated OOB in chair with chair alarm activated and cord plugged into callbell system. Patient and Family Goals: none noted Patient Education Education Topic: Role of OT (01/05/25809) Review of Precautions: Safety;Fall (01/05/25809) Method of Education: Verbalized to patient (01/05/25809) Education Provided to: Patient (01/05/25809) Response to Education: Receptive and agreeable to education (01/05/25809) Barriers to learning: None (01/05/25809) Preferred learning method: Combination (01/05/25809) Treatment Provided: Evaluation Low Complexity 23 minutes - 89868: Patient was cooperative and pleasant during treatment session. Low complexity evaluation performed and no deficits were identified that result in activity limitation. The patient does not have any comorbidities that affect occupational performance. There were no modifications necessary to complete the evaluation. Deficits Requiring O.T. Treatment: Deficits requiring O.T. treatment needs: (none) (01/05/25809) Assessment: Patient is an 84 year old male admitted to [facility] on 01/03/25 with Dx of SBO. Patient lives at home with his spouse. He was independent with his self- care prior to admission and did not use a device to ambulate. On evaluation, Patient demonstrates independent level for self-care, functional transfers, functional ambulation, bed mobility, and balance. Patient with 4+/5 bilateral UE strength. No safety concerns were noted. Recommend patient use his shower seat at home PRN. Please consider discharging patient to home with assistance as needed when he is medically appropriate for discharge. No further OT services are recommended at this time. Treatment Plan: Discontinue Occupational Therapy services AM-PAC Help From Another Person Eating Meals: None (01/05/25809) Help From Another Person Taking Care of Personal Grooming: None (01/05/25809) Help From Another Person To Put On/Take Off Upper Body Clothing: None (01/05/25809) Help From Another Person To Put On/Take Off Lower Body Clothing: None (01/05/25809) Help From Another Person Toileting: None (01/05/25809) Help From Another Person Bathing: None (01/05/25809) OT AM-PAC Score: 24 (01/05/25809) OT AM-PAC t-Scale Score: 57.54 (01/05/25809) HLM (Highest Level of Mobility) Goal: Level 8 walk 250 feet or more (01/05/25809) A portion of this AM-PAC assessment not scored based on functional assessment rather clinical decision making utilized based on current findings and/or prior level of function. Please refer to futureAM-PAC calculations of functional ability as they become available. * Geovanni Thakkar RDN - 01/04/2025 9:19 AM EDT CLINICAL NUTRITION CONSULT/PROGRESS NOTE [address] [address] Name: Andrade Mcfarlane Location: [facility] B640/B Date: 01/04/2025 Time: 9:20 AM How patient was identified (select 2): Wristband and Name Discussed in interdisciplinary rounds: No Andrade Mcfarlane is a 84 year old male being seen for reduced dietary intake, significant unintentional weight loss, and hx of malnutrition Primary Diagnosis: admitted with bowel obstruction found to have GOO. Hx of Pancreatic head mass Other pertinent information: Noted current plan for GI to place GJ stent planned for Friday (01/05). Patient seen this morning with NG in place clamped at time of visit but previously to suction. Patient reports limited intake over the past jacquie due to ongoing GI issues. Notes he would not wantto eat due to experiencing GI issues. 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 Per patient UBW 62 kg this aligns with EHR weights. In the past month appears pt has lost 11%. Patient identified to have malnutrition while admitted in November at [facility]. Patient continues to meet criteria for malnutrition dx. NUTRITION ASSESSMENT: Past medical/surgical history and medications reviewed. Food/Nutrition-Related History Diet: NPO Previously followed diet: none Food Allergies/Intolerances: no known Adult Energy Intake: Less than 75% of estimated energy requirement for greater than 7 days (moderate, acute illness). Oral Nutrition Supplement (ONS): none Nutrition Support: none Pertinent medications/vitamins/minerals/supplements: D5 NSS infusion, Pertinent Biochemical Data: There are no biochemical abnormalities requiring a change in the nutrition plan of care Nutrition-Focused Physical Findings: Appearance: Ill-appearing and Thin Respiratory support: Supplemental O2 Delivery: Room Air, None Nasal/Oral: No issues identified Digestive: Bowel obstruction/ileus/fistula Last Bowel Movement: 12/29/24 (per pt) (01/03/250) Cognition: Awake, alert Skin: Intact Enteral access: NGT Nutrition Focused Physical Exam: NFPE completed on 01/04/25 Subcutaneous Fat Loss: Orbital fat pads: Mild Buccal fat: Mild Tricep: Moderate Muscle Loss: Temples: Moderate Clavicles: Moderate Shoulders: Moderate Interosseous: Moderate Quadriceps: Mild Calves: Mild Anthropometrics Measurements Height: 165.1 cm (5' 5") (01/03/25452) Admission weight: 52 kg Weight: 52.6 kg (115 lb 15.4 oz) (01/03/25452) BMI: 19.3 (01/03/25452) Usual Body Weight: 62 kg per pt and EHR, 59kg November 2024 [place] weight: 67.8 kg [place] Weight Based on BMI: 24.9 Adjusted ideal weight: n/a Interpretation of Weight Change Prior to Admission: Greater than 5% weight loss in 1 month (Severe) -11% loss x 1 month Weight Changes Since Admission: n/a Nutrition Prescription: Energy needs: 30-35 Kcal/kg Based on admission weight Kcal/day: 8178-5143 Protein needs: 1.2-1.4 gm/kg Based on admission weight gm/day: 62-72 Fluid needs: 30 ml/kg Based on admission weight mL/day: 1560 Malnutrition: Malnutrition Present: Yes (01/04/25899) Adult Malnutrition Classification: Severe (01/04/25899) Malnutrition Characteristics: Fat loss;Muscle loss;Inadequate energy intake;Weight loss (01/04/25899) Malnutrition Care Plan: Patient meets ASPEN/AND criteria for severe malnutrition. Patient is currently NPO secondary to GOO. To follow for initiation of diet and/or implementation of appropriate malnutrition intervention per clinical guidelines. Should diet not be initiated in 5 days, will consider enteral or parenteral nutrition. Dietitian Action: Monitored NPO/clear liquid status (01/04/25899) NUTRITION DIAGNOSIS: Malnutrition severe related to acute illness or injury as evidenced by patient consuming less than 75% of estimated energy requirements x 7 days, greater than 5% weight loss x 1 month, mild fat loss,and moderate muscle loss. Altered GI function related to GOO as evidenced by current NPO status pending Stent placement Goals: Diet advancement or initiation of enteral/parenteral nutrition within 24-48 hours. NUTRITION INTERVENTION/PLAN: Continue to monitor NPO/clear liquid status Continue to monitor nutrition support Clinical Nutrition Recommendations: Diet: Advance diet when clinically feasible - if unable to advance diet in the next 48hr would consider need for parenteral nutrition NUTRITION MONITORING AND EVALUATION: NPO status/diet advancement and tolerance Lab values warranting change with MNT Weight for trends Plan follow-up: Will follow and adjust nutrition plan of care as medical condition requires. Please contact for change(s) in patient condition requiring earlier intervention. Geovanni AGUERO [facility] Clinical Nutrition Services [place] Text / x [phone] * Cherise Perry PA-C - 01/03/2025 2:13 PM EDTAssociated Order(s): PALLIATIVE MEDICINE CONSULT IP CONSULT NOTE - Palliative Medicine [facility] [address] Name: Andrade Mcfarlane Location: [facility] B640/B Date: 01/03/2025 Time: 2:13 PM REQUESTING SERVICE: General Internal Medicine REASON FOR CONSULT: We have been asked to see this patient for pain management. HPI: Copied- "Andrade Mcfarlane is a 84 year old, male with with history of atrial fibrillation/flutter on warfarin, BPD, [place] s/p CABG in 1990 and [place] s/p PCI x3 stents in 2011, who [facility] for a known pancreatic mass causing SBO. Patient was recently found to have alarge pancreatic mass seen on CT abdomen on 12/21. He was then transferred to [facility] where he was diagnosed with obstructed jaudnice and had an EUS and ERCP on 12/24. He had a biopsy aspiration, biliary sphincterotomy and placement of a stent in his CBD. Pathology of the EUS FNA was suspicious for malignancy. His PCP referred him to medical/surgical oncology. Since his recent hospital admission from 12/22 - 12/26, he followed up with his PCP on 12/29. Patient reports that for the past couple of days, his abdominal pain has worsened. He admits to vomiting 1x yesterday. His pain worsened to the point that he felt like he had to come into the hospital. Outside of vomiting yesterday, he has had minimal nausea. He has not had a bowel movement in 5 days, but is passing flatus. Minimal appetite for the last few days. He takes coumadin, which he last took two nights ago (01/01/2025). PSHx: appendectomy, open left inguinal hernia repair, cholecystectomy, CABG" This note was copy/pasted from Dr Varghese, dated on 01/03/25. PALLIATIVE ENCOUNTER FROM TODAY'S VISIT: 01/03/2025 Patient is an 84-year-old male admitted with small bowel obstruction 2/2 pancreatic mass (recent EUS / ERCP suspicious for adenocarcinoma). Patient'sson shared that Ed had been experiencing intermittent nausea and poor appetite (with associated "sig nificant" weight loss) for a few weeks. He has not been active. Feels tired, unable to gauge if he's weak due to lack of inactivity. Has been experiencing abdominal pain. Reports that PCP started oxycodone- was using 10 mg (5 mg tabs x 2) every 6 hours for the pain. He did feel that oxycodone was helpful for pain management. Noted development of severe nausea / vomiting and worsening abdominal pain x about 12 hours prompting ED evaluation- imaging concerning for obstruction due to pancreatic mass. He reported significant improvement in symptoms following NG tube placement. He reports that he's passing some flatus but no BM in 5 days. No acute symptoms noted at time of evaluation. REVIEW OF SYMPTOMS: [Severity scale of each symptom should be based on how the patient feels now.] 1. Pain Assessment: None Current Analgesic Regimen: Yes: Acetaminophen and Moderate/strong opioids: hydromorphone 2. Shortness of Breath Assessment: None Current Regimen: None 3. Nausea Assessment: None Current Regimen: None 4. Tiredness/Fatigue Assessment: Yes: Severity: 2 / 10 Current Regimen: None 5. Drowsiness Assessment: None 6. Depression Assessment: 1. During the past month, has patient been bothered by feeling down, depressed, or hopeless? Did not ask 2. During the past month, has patient been bothered by having little interest or pleasure in doing things? Did not ask Current Regimen: None 7. Anxiety Assessment: None Current Regimen: None 8. Anorexia/Lack of Appetite: Yes: Severity: 5 / 10 Current Regimen: None 9. Delirium/Agitation: No Current Regimen: None 10. Well-being Assessment: Did not ask 11. Constipation Assessment: Yes Current Regimen: None 12. Insomnia Assessment: Did not ask Current Regimen: None 13. Oropharyngeal Secretions or Cough: No Current Regimen: None Rest of the review of systems negative. FUNCTIONALITY: 60% - Ambulation: Reduced, Unable hobby/housework / Significant disease. Self-care: Occasional assistance necessary. Intake: Normal or reduced. Conscious level: Full or confusion. ADVANCED DIRECTIVES AND [place] ORDERS FOR LIFE-SUSTAINING TREATMENT: Yes: Scanned into [facility]: Medical POA/Living Will: Yes PAST MEDICAL HISTORY: Past Medical History: Diagnosis Date Atrial fibrillation and flutter (HCC) Does not realize when he goes in to it BCC (basal cell carcinoma), face Moh's done Bipolar disorder (manic depression) ([facility]) Glaucoma Manic episode (HCC) 2000 1 week inpatient stay [place] (my[place] infarction) ([facility]) 2011 3 in 2011 - 3 stents and an ablation done S/P CABG (coronary artery bypass graft) 1990 PAST SURGICAL HISTORY: Past Surgical History: Procedure Laterality Date COLONOSCOPY, DIAGNOSTIC (RECTUM) 12/30/2018 adenomatous polyps, diverticulosis, repeat 3 yrs/COLONOSCOPY FLEXIBLE PROXIMAL DIAGNOSTIC performedby Jojo Pearson MD at ENDOSCOPY [facility] COLONOSCOPY, DIAGNOSTIC (RECTUM) 08/19/2022 benign adenomatous polyps / COLONOSCOPY FLEXIBLE PROXIMAL DIAGNOSTIC performed by Jojo Pearson MD at ENDOSCOPY [facility] CORONARY ARTERIES BYPASS, THREE 1990 EGD, W/ENDOSCOPIC US 10/22/2023 mild gastritis/multiple stones gallbladder/cystic lesion pancreatic head/biopsies show mild gastritis, serous cyst/ESOPHAGOGASTRODUODENOSCOPY (EGD), FLEXIBLE, TRANSORAL, ENDOSCOPIC ULTRASOUND performed by Sylvia Horta DO at ENDOSCOPY [facility] EGD, W/ENDOSCOPIC US N/A 12/24/2024 ESOPHAGOGASTRODUODENOSCOPY (EGD), FLEXIBLE, TRANSORAL, ENDOSCOPIC ULTRASOUND performed by Sylvia Horta DO at OR [facility] ERCP, DIAGNOSTIC, SPECIMEN COLLECTION N/A 12/24/2024 ENDOSCOPIC RETROGRADE CHOLANGIOPANCREATOGRAPHY (ERCP) DIAGNOSTIC performed by Sylvia Horta DO at OR [facility] REMOVAL OF APPENDIX FAMILY HISTORY: Family History Problem Relation Name Age of Onset Heart Disorder Mother [place] Cancer Father Multiple myeloma Glaucoma Brother Heart Disorder Brother Family History: noncontributory SOCIAL HISTORY: Social History Tobacco Use Smoking status: Former Current packs/day: 0.50 Average packs/day: 0.5 packs/day for 3.0 years (1.5 ttl pk-yrs) Types: Cigarettes Smokeless tobacco: Never Vaping Use Vaping status: Never Used Substance Use Topics Alcohol use: Not Currently Drug use: No Family Support: Spouse: Primary and Child: Secondary PSYCHOSOCIAL ASSESSMENT: At times, I worry I will be a burden to my family: Unknown Pertinent Social Factors: Patient is with adult children. No current drug/alcohol/tobacco use. ALLERGIES: Environmental [pollen] PHYSICAL EXAMINATION: Most Recent Vital Signs: BP: 160 mmHg/68 mmHg (01/03/25 111) Pulse: 100 (01/03/25 111) Resp: 18 (01/03/251116) Temp: 36.61 C (01/03/251116) Temp Summary: Temp Min: 36.6 °C (97.9 °F) Max: 37.2 °C (99 °F) SpO2: 97 % (01/03/251116) O2 flow rate: Supplemental O2 Delivery: Room Air, None (01/03/251116) Vital Signs Last 24 Hours: Systolic BP: Most Recent Systolic BP Av.8 mmHg Min: 156 mmHg Max: 160 mmHg Temperature: Most Recent Temperature Av.9 C Min: 36.61 C Max: 37.22 C Pulse: Pulse Av.8 Min: 97 Max: 103 Respirations: Resp Av Min: 16 Max: 20 SpO2: SpO2 Av.3 % Min: 97 % Max: 99 % Constitutional: no acute distress, (+) chronically ill HENT: normocephalic, NG tube in place Eyes: anicteric and Sclera and conjunctiva normal Chest: normal respiratory effort Abdominal: slight distension Musculoskeletal: (+) loss of muscle mass Skin: warm, dry, intact on exposed areas of skin Neuro: alert, oriented to person, place, and time Psych: euthymic mood LABS REVIEWED: yes, reviewed Component Latest Ref Rng 01/03/2025 WBC 4.00 - 10.80 K/uL 18.38 (H) RBC 4.50 - 5.25 M/uL 4.78 HGB 14.0 - 16.8 g/dL 14.5 HCT 40.0 - 48.4 % 45.5 MCV 82.0 - 99.5 fL 95.2 MCH 27.0 - 34.0 pg 30.3 MCHC 32.0 - 36.0 g/dL 31.9 RDW 11.5 - 15.5 % 13.4 PLT 140 - 400 K/uL 635 (H) MPV 6.6 - 11.1 fL 10.2 NRBC % <=0 /100 WBCs 0 BUN 6 - 20 mg/dL 47 (H) CREATININE 0.6 - 1.2 mg/dL 1.5 (H) EGFR >=60 mL/min 44 (L) SODIUM 135 - 146 mmol/L 141 POTASSIUM 3.5 - 5.1 mmol/L 3.7 CHLORIDE 98 - 107 mmol/L 94 (L) CO2 22 - 32 mmol/L 27 ANION GAP 7 - 15 mmol/L 20 (H) GLUCOSE 70 - 120 mg/dL 133 (H) CALCIUM 8.4 - 10.2 mg/dL 9.2 Albumin 3.8 - 5.0 g/dL 3.8 AST 10 - 50 U/L 36 Alkaline Phosphatase 35 - 130 U/L 504 (H) ALT 10 - 50 U/L 55 (H) Bilirubin, Total <=1.2 mg/dL 0.7 Bilirubin, Direct 0.0 - 0.3 mg/dL 0.4 (H) Protein 6.0 - 8.3 g/dL 7.0 Magnesium 1.5 - 2.6 mg/dL 2.6 Phosphorus 2.5 - 4.8 mg/dL 4.5 CA 19-9 <35.0 U/mL 295.9 (H) IMAGING REVIEWED: yes, reviewed ASSESSMENT/PLAN: Andrade Mcfarlane is a/an 84 year old male referred for consultation to Palliative Medicine with the primary diagnosis of large pancreatic mass (s/p ERCP / EUS with pathology suspicious for adenocarcinoma) admitted with small bowel obstruction (post-ERCP pancreatitis vs malignant obstruction) Secondary Diagnoses are atrial fibrillation on Warfarin, CVA, CAD, HTN, HLD, bipolar 1 disorder andmoderate malnutrition Palliative Encounter / Goals of Care Introduced palliative medicine and explained our role in patient's care for symptom management and goals of care. Patient receptive to palliative services. He has completed AD - scanned into chart. Spouse (Jie) is medical POA. He is a Full Code at this time. Patient will benefit from goals of care / advanced care planning discussions pending final determination of care plan / input from medical oncologist. We will remain available for goals discussions as indicated. Family did ask about our involvement outpatient. Patient resides in [place], [place]- would be closer to follow @ [facility] palliative. This can be explored more prior to D/C. Emotional support, empathetic listening and reassurance provided. 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 10 mg (5 mg x 2 tabs) Q6H PRN - was using on a regular basis Pain has improved s/p NG tube placement Explained rationale for utilization of IV pain medications while NPO Continue Acetaminophen 1,000 mg IV Q6H ATC Continue hydromorphone 0.2 mg Q4H PRN moderate pain Continue hydromorphone 0.5 mg IV Q4H PRN severe pain Nausea/Vomiting Small Bowel Obstruction (suspect 2/2 pancreatic mass) Nausea/vomiting has improved s/p NG tube placement GI following- planning for EUS GJ placement on 01/05/25 Ongoing medical management per primary service / GI Ondansetron 4 mg IV Q6H PRN nausea/vomiting Anorexia Moderate Malnutrition NPO at this time Might benefit from appetite stimulant (olanzapine) once SBO management is optimized/tolerating oralintake We appreciate your consult request and the opportunity to assist in the care of your patient. Please do not hesitate to call or page with additional questions or concerns. We will always try to remain available. This patient was discussed with Dr. Bhakta at the time of consult. Cosigned by Vickie Bhakta MD at 01/03/2025 2:49 PM EDT * Sebastian Loya PA-C - 01/03/2025 11:47 AM EDTAssociated Order(s): ONCOLOGY CONSULT IP Images from the original note were not included. CONSULT - Oncology [facility]-[address] [id number] Name: Andrade Mcfarlane Location: [facility] B640/B Date: 01/03/2025 Time: 5:47 AM REQUESTING SERVICE: Surgery REASON FOR CONSULT: newly diagnosed pancreatic mass HISTORY OF PRESENT ILLNESS: this is a 84yo man with a Pmhx of Pafib AC, S/p ablation , CAD s/p [id number] , h/o [place] s/p 3 stents 2011 , HTN , glaucoma. He developed post prandial abdominal pain in October 2024. He was transferred to [facility] to be admitted 12/22/2024 to 12/26/2024 at [facility] for mid epigastric abdominal borja that radiated to his back he was found to have obstructive jaundice and a pancreatic mass. No CT readings available but scan are placed. 12/24/2024 he had a EGD and EUS completed. EUS notea 36mm mass in the pancreatic head, T3N1M0 by endosonographic criteria. A biliary sphincterotomy was performed. Cells for cytology obtained in the lower third of the main duct. One covered metal stent was placed into the common bile duct. Pathology still pending but there was atypical epithelial cells that were suspicious for adenomacarcinoma his CA19-9 was elevated and was 316.8 on 12/24/2024 andrepeated was 295 on 01/03/2025. Patient presented back to [facility] after persistent abdominal pain. Imaging revealed proximal SBO likely secondary to his pancreatic head mass. He had been reporting nauesa and vomiting without being able to eat much over the last several days. NGT was placed with some pain relief. Patient was scheduled to see surg onc (Dr. Campa) on 01/07 to discuss options moving forward. Surg onc consulted while admitted and notes the mass is not resectable at this time 2/2 involvement with SMA. Patient awarehe will need neoadjuvant chemotherapy. Gi consulted and planning to place GJ stent for gastric outlet obstruction. Patient notes his pain is much better than before going to the [facility] ED but still lingers. Patient lives with his and is fully independent in his daily functions. Tries to walk almost a mile a day around his development with his . No tobacco use or alcohol use in the last 30-40 years. No history of cancer. Father passed from melanoma. PAST MEDICAL HISTORY: Past Medical History: Diagnosis Date Atrial fibrillation and flutter (HCC) Does not realize when he goes in to it BCC (basal cell carcinoma), face Moh's done Bipolar disorder (manic depression) (HCC) Glaucoma Manic episode (HCC) 2000 1 week inpatient stay [place] (myocardial infarction) (HCC) 2012 3 in 2012 - 3 stents and an ablation done S/P CABG (coronary artery bypass graft) 1990 PAST SURGICAL HISTORY: Past Surgical History: Procedure Laterality Date COLONOSCOPY, DIAGNOSTIC (RECTUM) 12/30/2018 adenomatous polyps, diverticulosis, repeat 3 yrs/COLONOSCOPY FLEXIBLE PROXIMAL DIAGNOSTIC performedby Jojo Pearson MD at ENDOSCOPY [facility] COLONOSCOPY, DIAGNOSTIC (RECTUM) 08/19/2022 benign adenomatous polyps / COLONOSCOPY FLEXIBLE PROXIMAL DIAGNOSTIC performed by Jojo Pearson MD at ENDOSCOPY [facility] CORONARY ARTERIES BYPASS, THREE 1990 EGD, W/ENDOSCOPIC US 10/22/2023 mild gastritis/multiple stones gallbladder/cystic lesion pancreatic head/biopsies show mild gastritis, serous cyst/ESOPHAGOGASTRODUODENOSCOPY (EGD), FLEXIBLE, TRANSORAL, ENDOSCOPIC ULTRASOUND performed by Sylvia Horta DO at ENDOSCOPY [facility] EGD, W/ENDOSCOPIC US N/A 12/24/2024 ESOPHAGOGASTRODUODENOSCOPY (EGD), FLEXIBLE, TRANSORAL, ENDOSCOPIC ULTRASOUND performed by Sylvia Horta DO at OR [facility] ERCP, DIAGNOSTIC, SPECIMEN COLLECTION N/A 12/24/2024 ENDOSCOPIC RETROGRADE CHOLANGIOPANCREATOGRAPHY (ERCP) DIAGNOSTIC performed by Sylvia Horta DO at OR [facility] REMOVAL OF APPENDIX FAMILY HISTORY: Family History Problem Relation Name Age of Onset Heart Disorder Mother [place] Cancer Father Multiple myeloma Glaucoma Brother Heart Disorder Brother SOCIAL HISTORY: Social History Tobacco Use Smoking status: Former Current packs/day: 0.50 Average packs/day: 0.5 packs/day for 3.0 years (1.5 ttl pk-yrs) Types: Cigarettes Smokeless tobacco: Never Vaping Use Vaping status: Never Used Substance Use Topics Alcohol use: Not Currently Drug use: No ALLERGIES: Environmental [pollen] PHYSICAL EXAM: Most Recent Vital Signs: BP: 156 mmHg/81 mmHg (01/03/25541) Pulse: 103 (01/03/25541) Resp: 16 (01/03/25452) Temp: 37.22 C (01/03/25452) Temp Summary: Temp Min: 37.2 °C (99 °F) Max: 37.2 °C (99 °F) SpO2: 98 % (01/03/25452) O2 flow rate: Supplemental O2 Delivery: PE: ECOG PS 0 HEENT: EOMI and oropharynx clear Lungs: Clear to auscultation CVR: regular rate and rhythm, no murmurs or gallops Abdomen: abdomen soft, slightly 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 LABS: I have personally reviewed the following labs CBC/DIFF CHEMISTRY Lab results within last 7 days (see chart for full results) Units 01/03/25 0450 BUN mg/dL 47* CREATININE mg/dL 1.5* EGFR mL/min 44* SODIUM mmol/L 141 POTASSIUM mmol/L 3.7 CHLORIDE mmol/L 94* CALCIUM mg/dL 9.2 Phosphorus mg/dL 4.5 Magnesium mg/dL 2.6 CO2 mmol/L 27 ANION GAP mmol/L 20* GLUCOSE mg/dL 133* Lab results within last 7 days (see chart for full results) Units 01/03/25 0450 12/29/24 1534 WBC K/uL 18.38* 10.41 HGB g/dL 14.5 12.9* PLT K/uL 635* 430* Neutrophils % % -- 73.1 Monocytes % % -- 8.1 LFTs Lab results within last 7 days (see chart for full results) Units 01/03/25 0450 Albumin g/dL 3.8 Protein g/dL 7.0 AST U/L 36 ALT U/L 55* Alkaline Phosphatase U/L 504* Bilirubin, Total mg/dL 0.7 Bilirubin, Direct mg/dL 0.4* RADIOLOGY: A CT of the A/P was in the chart from hospitalization from [facility] and noted the following CT AP at [facility] ed 12/22-12/26/2024 admision 1. Large infiltrative pancreatic head/uncinate process mass likely represents primary adenocarcinoma of the pancreas causing obstruction with dilation of the pancreatic and common bile ducts. 2. Subcentimeter abdominal lymph nodes should be evaluated on follow-up to exclude lymphatic metastasis. 3. Right basilar 1.3 cm solid nodule, likely malignant. 4. Mild wall thickening of the ascending colon and hepatic flexure could represent a mild nonspecific colitis. ERCP 12/24/2024 Impression: - The major papilla appeared to be enlarged. - A single segmental biliary stricture was found in the lower third of the main bile duct. The stricture was indeterminate. - The upper third of the main bile duct, middle third of the main bile duct and left and right hepatic ducts and all intrahepatic branches were moderately dilated, secondary to a stricture. - The patient has had a cholecystectomy. - A biliary sphincterotomy was performed. - Cells for cytology obtained in the lower third of the main duct. - One covered metal stent was placed into the common bile duct. - Indomethacin given to decrease risk of post-ERCP pancreatitis. Recommendation: - Avoid aspirin and nonsteroidal anti-inflammatory medicines for 1 week. - Clear liquid diet today. - Use broad spectrum antibiotics for 1 week. - Await cytology results. Upper endoscopy 12/24/2024 - Evidence of a cholecystectomy. - There was dilation in the middle third of the main bile duct and in the upper third of the main bile duct which measured up to 12 mm. - One stone was visualized endosonographically in the lower third of the main bile duct. - A few enlarged lymph nodes were visualized in the gabriel hepatis region. - A 36 mm mass was identified in the pancreatic head. This was staged T3 N1 M0 by endosonographic criteria. The staging applies if malignancy is confirmed, the differential also includes autoimmune pancreatitis. Fine needle biopsy performed. Recommendation: - Perform an ERCP today. - Await cytology results. Impression: - Normal esophagus. - Z-line regular, 38 cm from the incisors. - Normal stomach. - Nodular mucosa in the second portion of the duodenum. Biopsied. Recommendation: - Perform an upper endoscopic ultrasound (UEUS) today. - Await pathology results. Sylvia Horta, DO CT 01/02 performed at [facility] PATHOLOGY: Assessment and Plan ASSESSMENT: Principal Problem: SBO (small bowel obstruction) (HCC) Active Problems: Coronary artery disease involving [place] coronary artery of [place] heart without angina pectoris History of [place] (myocardial infarction) Chronic atrial fibrillation (HCC) Chronic kidney disease with symptom management only, stage 3 (moderate) (HCC) HTN, goal below 140/90 Dyslipidemia, goal LDL below 70 Pancreatic mass Malnutrition of moderate degree (HCC) Resolved Problems: * No resolved hospital problems. * RECOMMENDATIONS: 84 yo male with newly dx pancreatic adenocarcinoma. CA19-9 elevated. T3N1M0 by endosonographic criteria, however, patient has 1.3 cm R basilar nodule and abdominal lymphadenopathy concerning for mets. Pancreatic mass is non-resectable anyway as it appears to involve the SMA and abuts the SMV/portalvein. Patient has good PS and desiring chemotherapy. Patient currently admitted with small bowel obstruction with plan for GI to place GJ stent tomorrow. - Will need CT chest for complete staging. Nodule concerning for mets seen on CT A/P performed at OSH - MyGenVar pending, should result in next several days - Patient will likely receive chemotherapy and can be set up as outpatient at [facility]. Will send message to team there to get appointment scheduled once additional testing is back Rest of their care per primary team Pt to be discussed with Dr. Jasmine. Thanks for involving us with the care of this patient. Please call or page us with any questions. I spent a total of 72 minutes coordinating, documenting, and providing care for this patient excluding time spent in the performance of separately billed services or time spent by another provider/QHP. Cosigned by Darshan Jasmine MD at 01/04/2025 10:09 PM EDT Associated attestation - Darshan Jasmine MD - 01/04/2025 10:09 PM EDT I have reviewed the advanced practitioner's documentation on the date of service referenced in note, and I agree with, and take responsibility for the plan of care. I spent a total of 50 minutes coordinating, documenting, and providing care for this patient excluding time spent in the performance of separately billed services or time spent by another provider/QHP. * Charli Coleman MD - 01/03/2025 10:54 AM EDTAssociated Order(s): GASTROENTEROLOGY CONSULT IP; GASTROENTEROLOGY CONSULT IP CONSULT - Gastroenterology [facility] [id number] Name: Andrade Mcfarlane Location: [facility] B640/B Date: 01/03/2025 Time: 10:55 AM REQUESTING SERVICE: Medicine REASON FOR CONSULT: "pancreatic mass found on recent EUS/ERCP, now with malignant obstruction, evalfor possible duodenal stent/palliative options " HPI: Andrade Mcfarlane is a 84 year old male with hx of A fib on warfarin, CVA, CAD, HTN, HLD, BPD, pancreatic mass status post ERCP and EUS biopsy (pathology suspicious for adenocarcinoma) who presented to the hospital with abdominal pain and nausea or vomiting. Patient reported abdominal for a long time but the pain was getting worse yesterday. He also reported significant nausea with 1 episode ofnonbloody vomits which brought him to the hospital. Patient reported mood and 50 lb weight loss in the past few months. In the ED CT scan was done which was concerning for small-bowel obstruction dueto pancreatic mass. Patient transferred to this center. NG tube was place by primary team. Patient feels significantly better after NG tube placement. HISTORY: Past Medical History: Past Medical History: Diagnosis Date Atrial fibrillation and flutter (HCC) Does not realize when he goes in to it BCC (basal cell carcinoma), face Moh's done Bipolar disorder (manic depression) (HCC) Glaucoma Manic episode (HCC) 2000 1 week inpatient stay [place] (my[place] infarction) (HCC) 2011 3 in 2011 - 3 stents and an ablation done S/P CABG (coronary artery bypass graft) 1990 Past Surgical History: Past Surgical History: Procedure Laterality Date COLONOSCOPY, DIAGNOSTIC (RECTUM) 12/30/2018 adenomatous polyps, diverticulosis, repeat 3 yrs/COLONOSCOPY FLEXIBLE PROXIMAL DIAGNOSTIC performedby Jojo Pearson MD at ENDOSCOPY [facility] COLONOSCOPY, DIAGNOSTIC (RECTUM) 08/19/2022 benign adenomatous polyps / COLONOSCOPY FLEXIBLE PROXIMAL DIAGNOSTIC performed by Jojo Pearson MD at ENDOSCOPY [facility] CORONARY ARTERIES BYPASS, THREE 1990 EGD, W/ENDOSCOPIC US 10/22/2023 mild gastritis/multiple stones gallbladder/cystic lesion pancreatic head/biopsies show mild gastritis, serous cyst/ESOPHAGOGASTRODUODENOSCOPY (EGD), FLEXIBLE, TRANSORAL, ENDOSCOPIC ULTRASOUND performed by Sylvia Horta DO at ENDOSCOPY [facility] EGD, W/ENDOSCOPIC US N/A 12/24/2024 ESOPHAGOGASTRODUODENOSCOPY (EGD), FLEXIBLE, TRANSORAL, ENDOSCOPIC ULTRASOUND performed by Sylvia Horta DO at OR [facility] ERCP, DIAGNOSTIC, SPECIMEN COLLECTION N/A 12/24/2024 ENDOSCOPIC RETROGRADE CHOLANGIOPANCREATOGRAPHY (ERCP) DIAGNOSTIC performed by Sylvia Horta DO at OR [facility] REMOVAL OF APPENDIX Social History: Social History Tobacco Use Smoking status: Former Current packs/day: 0.50 Average packs/day: 0.5 packs/day for 3.0 years (1.5 ttl pk-yrs) Types: Cigarettes Smokeless tobacco: Never Vaping Use Vaping status: Never Used Substance Use Topics Alcohol use: Not Currently Drug use: No Family History: Family History Problem Relation Name Age of Onset Heart Disorder Mother [place] Cancer Father Multiple myeloma Glaucoma Brother Heart Disorder Brother Allergies: Environmental [pollen] ROS: Reviewed, negative except as above. PHYSICAL EXAMINATION: Most Recent Vital Signs: BP: 157 mmHg/75 mmHg (01/03/25799) Pulse: 97 (01/03/25799) Resp: 18 (01/03/25799) Temp: 36.94 C (01/03/25799) Temp Summary: Temp Min: 36.9 °C (98.5 °F) Max: 37.2 °C (99 °F) SpO2: 99 % (01/03/25799) O2 flow rate: Supplemental O2 Delivery: Room Air, None (01/03/25799) Vital Signs Last 24 Hours: Systolic BP: Most Recent Systolic BP Av mmHg Min: 156 mmHg Max: 158 mmHg Temperature: Most Recent Temperature Av.1 C Min: 36.94 C Max: 37.22 C Pulse: Pulse Av Min: 97 Max: 103 Respirations: Resp Av Min: 16 Max: 20 SpO2: SpO2 Av.7 % Min: 98 % Max: 99 % General: ill appearing Head and face: normocephalic and atraumatic, NG tube in place Eyes: No scleral icterus; normal lids Neck: Supple. Good ROM Heart: Not tachycardic Respiratory: not in respiratory distress. Abdomen: Soft, non-tender, Non-distended. Extremities: No cyanosis, or clubbing. No edema Skin: Warm, dry, intact. Neuro: Alert and oriented x 3. Speech appropriate, moves all extremities. LABS: Reviewed in [facility] IMAGES: Reviewed in [facility] IMPRESSION: Andrade Mcfarlane is a 84 year old male with hx of A fib on warfarin, CVA, CAD, HTN, HLD, BPD, pancreatic mass status post ERCP and EUS biopsy (pathology suspicious for adenocarcinoma) who presented to the hospital with abdominal pain and nausea or vomiting. CT scan is consistent with GOO. Gi consulted for the EUS GJ placement. Cases discuss with the advanced attending, plan for EUS and GJ placementon Friday. RECOMMENDATIONS/PLAN: Continue with stomach decompression with NG tube. Plan for EUS GJ placement on Friday. I have discussed the case with my attending, Dr. Nunez and Dr. Turner. Charli Proctor MD Gastroenterology Fellow, [facility] Cosigned by Juliette Nunez DO at 01/03/2025 11:21 AM EDT Associated attestation - Juliette Nunez DO - 01/03/2025 11:21 AM EDT I saw and evaluated the patient today. I have reviewed the resident/fellow physician note and agree. Plan for EUS-GJ placement, tentatively Wed 01/05. In the meantime continue NGT decompression and consider nutrition eval. * Surjit Singh MD - 01/03/2025 5:17 AM EDT CONSULT - Surgical Oncology [facility] [address] Name: Andrade Mcfarlane Location: [facility] B640/B Date: 01/03/2025 Time: 5:17 AM REQUESTING SERVICE: [facility] REASON FOR CONSULT: Andrade Mcfarlane [facility] is seen at the request of Dr. Varghese in consultation for SBO 2/2 pancreatic mass. HISTORY OF PRESENT ILLNESS: Andrade Mcfarlane is a 84yo M with hx of A fib, CVA, CAD, HTN, HLD, BPD who presents with small bowel obstruction thought to be secondary to a large pancreatic mass. He was recently admitted 12/22 for biliary obstruction and was found to have this mass on imaging. He did of note have a recent EGD with EUS for pancreatic cyst in October 2023 with pathology findings of low grade cystic neoplasm vs benign non-mucinous cystic lesion. He underwent ERCP with EUS and FNA on 12/24/24, during which a CMS was placed into the CBD and biliary sphincterotomy performed. He was set up with OP referrals and was discharged to home on 12/26, but has yet to see any of the oncology teams (surgical, medical, etc). Today he presents with worsened abdominal pain and one episode of emesis. He also endorses nausea and poor appetite. CT concerning for small bowel obstruction at his known pancreatic mass. Reports that he can ambulate a block and up a flight of stairs without becoming short of breath. Surgical pathology from 12/24: Final Diagnosis A. Pancreas, Head, EUS guided fine needle aspiration: Adequacy: Less than optimal. Category: Suspicious for malignancy (WHO International System). Interpretation: Atypical epithelial cells, suspicious for adenocarcinoma (see comment). A. Duodenum, biopsy: Duodenal mucosa with scattered lamina propria neutrophils (mildly active nonspecific duodenitis). Villous architecture is preserved and no significant intraepithelial lymphocytosis. AP/AC: coumadin for A fib, last dose 2 days ago HOSPITAL PROBLEM LIST: Active Problems: * No active hospital problems. * POA = Present On Admission PAST MEDICAL HISTORY: Past Medical History: Diagnosis Date Atrial fibrillation and flutter (HCC) Does not realize when he goes in to it BCC (basal cell carcinoma), face Moh's done Bipolar disorder (manic depression) (HCC) Glaucoma Manic episode (HCC) 2000 1 week inpatient stay [place] (myocardial infarction) (HCC) 2011 3 in 2011 - 3 stents and an ablation done S/P CABG (coronary artery bypass graft) 1990 PAST SURGICAL HISTORY: Past Surgical History: Procedure Laterality Date COLONOSCOPY, DIAGNOSTIC (RECTUM) 12/30/2018 adenomatous polyps, diverticulosis, repeat 3 yrs/COLONOSCOPY FLEXIBLE PROXIMAL DIAGNOSTIC performedby Jojo Pearson MD at ENDOSCOPY [facility] COLONOSCOPY, DIAGNOSTIC (RECTUM) 08/19/2022 benign adenomatous polyps / COLONOSCOPY FLEXIBLE PROXIMAL DIAGNOSTIC performed by Jojo Pearson MD at ENDOSCOPY [facility] CORONARY ARTERIES BYPASS, THREE 1990 EGD, W/ENDOSCOPIC US 10/22/2023 mild gastritis/multiple stones gallbladder/cystic lesion pancreatic head/biopsies show mild gastritis, serous cyst/ESOPHAGOGASTRODUODENOSCOPY (EGD), FLEXIBLE, TRANSORAL, ENDOSCOPIC ULTRASOUND performed by Sylvia Horta DO at ENDOSCOPY [facility] EGD, W/ENDOSCOPIC US N/A 12/24/2024 ESOPHAGOGASTRODUODENOSCOPY (EGD), FLEXIBLE, TRANSORAL, ENDOSCOPIC ULTRASOUND performed by Sylvia Horta DO at OR [facility] ERCP, DIAGNOSTIC, SPECIMEN COLLECTION N/A 12/24/2024 ENDOSCOPIC RETROGRADE CHOLANGIOPANCREATOGRAPHY (ERCP) DIAGNOSTIC performed by Sylvia Horta DO at OR [facility] REMOVAL OF APPENDIX FAMILY HISTORY: Family History Problem Relation Name Age of Onset Heart Disorder Mother [place] Cancer Father Multiple myeloma Glaucoma Brother Heart Disorder Brother SOCIAL HISTORY: Social History Tobacco Use Smoking status: Former Current packs/day: 0.50 Average packs/day: 0.5 packs/day for 3.0 years (1.5 ttl pk-yrs) Types: Cigarettes Smokeless tobacco: Never Vaping Use Vaping status: Never Used Substance Use Topics Alcohol use: Not Currently Drug use: No ALLERGIES: Environmental [pollen] ROS: Otherwise negative PHYSICAL EXAMINATION: Most Recent Vital Signs: BP: 158 mmHg/81 mmHg (01/03/25452) Pulse: 103 (01/03/25452) Resp: 16 (01/03/25452) Temp: 37.22 C (01/03/25452) Temp Summary: Temp Min: 37.2 °C (99 °F) Max: 37.2 °C (99 °F) SpO2: 98 % (01/03/25452) O2 flow rate: Supplemental O2 Delivery: Vital Signs Over Last 24 Hours: Systolic BP: Most Recent Systolic BP Av mmHg Min: 158 mmHg Max: 158 mmHg Temperature: Most Recent Temperature Av.22 C Min: 37.22 C Max: 37.22 C Pulse: Pulse Av Min: 103 Max: 103 Respirations: Resp Av Min: 16 Max: 16 SpO2: SpO2 Av % Min: 98 % Max: 98 % Constitutional: no acute distress HEENT: normal: normocephalic, atraumatic; no masses, tenderness, or adenopathy Chest: normal respiratory effort, lungs clear to auscultation and percussion Abdomen: soft, no tenderness, mildly distended Musculoskeletal: normal range oef motion Skin: warm, dry, intact: Neuro: alert, oriented to person, place, and time, normal mental status exam, gait normal, reflexesnormal and symmetric, sensory normal LABS: Labs reviewed as indicated below: CBC Lab Results Component Value Date/Time WBC 18.38 (H) 01/03/2025 04:50 AM WBC 9.23 09/13/2020 07:29 AM HGB 14.5 01/03/2025 04:50 AM HGB 16.2 10/01/2021 12:00 AM HGB 17.1 (H) 09/13/2020 07:29 AM HCT 45.5 01/03/2025 04:50 AM HCT 51.4 (H) 09/13/2020 07:29 AM PLT 635 (H) 01/03/2025 04:50 AM PLT 299 09/13/2020 07:29 AM BMP Lab Results Component Value Date/Time NA 138 12/26/2024 07:02 AM NA 142 09/13/2020 07:29 AM POTASSIUM 3.6 12/26/2024 07:02 AM POTASSIUM 4.6 10/01/2021 12:00 AM POTASSIUM 4.5 09/13/2020 07:29 AM CL 100 12/26/2024 07:02 AM CL 103 09/13/2020 07:29 AM CO2 27 12/26/2024 07:02 AM CO2 26 09/13/2020 07:29 AM BUN 13 12/26/2024 07:02 AM BUN 28 (H) 09/13/2020 07:29 AM CREAT 1.0 12/26/2024 07:02 AM CREAT 1.17 10/01/2021 12:00 AM CREAT 1.3 (H) 09/13/2020 07:29 AM Ca, Mg, Phos Lab Results Component Value Date/Time CA 8.4 12/26/2024 07:02 AM CA 9.5 09/13/2020 07:29 AM MG 2.0 12/23/2024 06:12 AM PHOSPHORUS 3.2 11/26/2024 02:02 PM IMAGING: Reviewed IMPRESSION and PLAN: 84yo M with duodenal obstruction secondary to a large pancreatic mass confirmed adenocarcinoma. On imaging, pancreatic mass appears to involve SMA and abuts SMV/portal vein. -Recommend GI consult for GJ Axios Stent placement to relieve obstruction -Recommend med onc, will need neoadjuvant treatment on discharge as tumor is currently unresectable -Patient will need to undergo completion of staging workup including CT chest -Will be available for questions or goals of care conversations Seen, will be discussed with Dr. Campa. Surjit Singh MD Resident Physician, PGY-4 Department of General Surgery [facility] 01/03/2025, 8:09 AM Cosigned by Robert Campa MD at 01/05/2025 10:32 AM EDT Associated attestation - Robert Campa MD - 01/05/2025 10:32 AM EDT I saw and evaluated the patient 01/03/2025. I have reviewed the resident/fellow physician note and agree. Patient with unresectable pancreas cancer- encasing the SMA- FU with med onc GI for GJ- documented in this encounter Nursing Notes * Vanessa Monroe RN - 01/05/2025 5:15 PM EDT Per verbal order, the physician has examined the patient, prescribed and verified the charted medication, and certified that he is recovered and may return to the nursing nicole. DISCHARGE PROGRESS NOTE - ENDOSCOPY [facility] [address] Name: Andrade Mcfarlane Location: [facility] Date: 01/05/2025 Time: 5:15 PM Patient is discharged under the care of : transport to [facility] Report called to Inpatient unit - Lillie Means of transportation: bed Bronchoscopy: N/A Oxygen support: N/A * Joy Palacios RN - 01/05/2025 3:28 PM EDT Procedure being completed under general anesthesia. Please see anesthesia record for medications and vital signs. documented in this encounter Miscellaneous Notes * Ancillary Progress Note - Nadine Mann RN - 01/07/2025 11:38 AM EDT CARE MANAGEMENT - ADULT DISCHARGE NOTE [facility] [address] Name: Andrade Mcfarlane Location: [facility] B640/B Date: 01/07/2025 Time: 11:38 AM The following coordination of care and discharge plan has been coordinated with the care team, patient, family and/or caregiver according to the patients’ needs and preferences. Discharge Discharge Second Notice Important Message from Medicare delivered: Yes (01/07/251137) Date Delivered: 01/07/25 (01/07/251137) Was Caregiver/Family/Facility contacted regarding discharge: Yes (01/07/251137) Discharge Transportation: Family/Friends drive (01/07/251137) Final Discharge Plan (Complete only at time of Discharge): Home with Services (01/07/251137) Home Medical Care - Admitted Since 01/03/2025 Service Provider Services Address Phone Fax Patient Preferred Last Updated [facility] [address], [address], [facility] [address] [phone] -- Nadine Mann RN 01/06/2025 1148 Narrative: Pt discharging home. Arlette Nj made aware of discharge who will notify [facility] and contact patient for SOC. Pt's family will provide transportation home. No further CM needs identified at this time. Please contact care management for any further questions or concerns. * Care Plan - Gisela Adam RN - 01/07/2025 6:28 AM EDT Problem: Actual & Potential for Falls Goal: Patient will remain free of falls. Outcome: Progressing Clinical Goal(s): Pt will remain fall free this shift. (01/06/251999) Possible barriers to meeting goal(s)/advancing plan of care: Unfamiliar hospital setting. Stability of the patient: Moderately stable - low risk of patient condition declining or worsening Summary regarding today's goal(s): Met: Pt remains fall free this shift. Recommendations: Continue with bed in lowest position and call [facility] in reach. * Care Plan - Suzy Ram RN - 01/06/2025 5:22 PM EDT Clinical Goal(s): Patient will remain free from falls/injury this shift (01/06/25 1500) Possible barriers to meeting goal(s)/advancing plan of care: Generalized weakness, unfamiliar environment Stability of the patient: Moderately stable - low risk of patient condition declining or worsening Summary regarding today's goal(s): Met: Patient remained free from falls/injury this shift Recommendations: Continue with current plan of care * Communication - Sebastian Loya PA-C - 01/06/2025 3:03 PM EDT SIGNOFF IMPRESSION AND RECOMMENDATIONS: Specialty Impression Suspected metastatic pancreatic adenocarcinoma Recommended medication(s) at discharge NA Recommended discharge testing (lab, imaging, etc.) None Other recommended care at discharge Follow up NGS testing and final cytology Follow-up in Specialty Clinic Has appointment scheduled with Dr. Nicole at [facility] on 01/18/25 We will sign off at this time. Please call with any questions or should the patient's clinical course change. The [employer] consultant has placed the following orders for their recommendations: Recommended Follow-up * Ancillary Progress Note - Nadine Mann RN - 01/06/2025 10:47 AM EDT CARE MANAGEMENT - ADULT TRANSITION NOTE [facility] [place] [address] Name: Andrade Mcfarlane Location: [facility] B640/B Date: 01/06/2025 Time: 10:48 AM Risk Stratification Readmission Risk Score: 14.39 (01/06/25 0800) AM-PAC Score With Stairs : 24 (01/05/25 0810) Caregiver Information Emergency Contacts Name Relation Home Work Mobile Jie Mcfarlane Spouse [phone] Other Contacts None on File Transition of Care Checklist Narrative: Chart reviewed, pt discussed in IDT rounds, pt is not medically ready for discharge today. CM met with patient and family to discuss discharge planning. Pt is agreeable to home health referral. First choice is [facility]. Referral faxed. Spoke with Sheeba who will review referral. CM will continue to follow throughout hospitalization for developing discharge needs. Update - Received message from Marita Nj who states [facility] can accept patient and will see him within 24-48 hrs of discharge. Anticipated Transportation at Discharge: family Patient/Family Expectations: home with home health Transition Planning Additional Considerations: none Care Management will continue to monitor and assist with discharge planning needs * Ancillary Progress Note - Nadine Mann RN - 01/06/2025 10:31 AM EDT HOME CARE REFERRAL FORM CARE MANAGEMENT [address] [address] Referred By: Nadine Mann RN Admission Date: 01/03/2025 Discharge Date: Discharge Time: Start Date: Agency Referred To: [facility] PATIENT INFORMATION: Name: Andrade Mcfarlane Address: [address] [address] : 1940 (home) SSN: [id number] County: [place] Caregiver / Teachable Person: Jie Mcfarlane Relationship: Emergency Contacts: Extended Emergency Contact Information Primary Emergency Contact: Jie Mcfarlane [address] [place] [address] [facility] [place] Relation: Spouse Preferred language: Chadian Director Of Music needed? No MEDICAL INFORMATION: Principal Diagnosis: SBO (small bowel obstruction) ([facility]) Diet: As per discharge instructions. Allergies: Environmental [pollen] Isolation Type: Activity Restrictions: As ordered Isolation For: None HOME CARE ORDERS: (Discipline and Frequency): Shelter Assessment Disease Management and Teaching Medication Management and Teaching Lab work as indicated on discharge instructions Home Safety Evaluation Medications Dose, Frequency, & Route: As ordered Ordering Physician and Contact Information: Marina Conway DO Comments: PCP: PCP: [place] [address] [phone] D/C Physician: Marina Conway DO Insurance: See attached facesheet. * Care Plan - Hedy Weber RN - 01/06/2025 3:35 AM EDT Problem: Safety & Risk for Injury Goal: Patient will remain free from injury. Outcome: Progressing Clinical Goal(s): To prevent fall within the shift. (01/05/250) Possible barriers to meeting goal(s)/advancing plan of care: Pain, weakness, old age Stability of the patient: Moderately stable - low risk of patient condition declining or worsening Summary regarding today's goal(s): Met: No Falls within the shift. Recommendations: Continue fall precautions. * Communication - Charli Coleman MD - 01/05/2025 4:44 PM EDT Brief GI communication note EGD and EUS was done which showed: The duodenum and jejunum was filled with methylene blue mixed with sterile water and contrast to distend the distal duodenum and proximal jejunum. The decision was made to create a gastro-enterostomy using the AXIOS stent system. Once an appropriate position in the stomach was identified, the common wall between the stomach and the jejunum was interrogated utilizing color Doppler imaging to identify interposed vessels. The AXIOS stent and electrocautery device was introduced through the working channel. Current was applied to the cautery tip and then used to increase the diameter of the stoma. The AXIOS device was advanced into the jejunum using freehand puncture technique, and a 20 x 10 mm AXIOS stent was placedwith the flanges in close approximation to the pierce of the stomach and the jejunum through the gastro- enterostomy. The stentwas successfully placed. I personally interpreted the fluoroscopic images. The EUS- guided gastrojejunostomy was successfully performed under endosonographic and fluoroscopic guidance. I personally interpreted the fluoroscopic images. Placement of a long 0.025 inch long angled Visiglide guidewire was attempted. This passed successfully through the stent. A biliary balloon cathetor was passed successfully over the wire and contrastwas injected into the lumen to confirm sppropriate stent position. STENT DILATION: A TTS dilator was passed through the scope. Dilation of the stent lumen with a 12-13.5-15 mm x 3 cmCRE-Rx balloon dilator was performed to 15 mm under fluoroscopic guidance. The orojejunal drain was then removed and gastrojejunal patency was confirmed via relook endoscopy and with contrast injection. I personally interpreted the fluoroscopic images Recommendations: - Restart full liquid diet. Full liquid diet for 24 hours, and advance to mechanical soft as tolerated. Do not advance beyond mechanical soft due to risk of stent occlusion or migration. - watch the patient for post procedure bleeding. - GI will follow the patient. Charli Proctor MD Gastroenterology Fellow, [facility] * Care Plan - Suzy Ram RN - 01/05/2025 4:40 PM EDT Clinical Goal(s): Patient will remain free from falls/injury this shift (01/05/25 0800) Possible barriers to meeting goal(s)/advancing plan of care: Generalized weakness, use of assistivedevice, unfamiliar environment, procedure requiring anesthesia this shift Stability of the patient: Moderately stable - low risk of patient condition declining or worsening Summary regarding today's goal(s): Met: Patient remained free from falls/injury during the time patient was on unit Recommendations: Continue with current plan of care * Ancillary Progress Note - Nadine Mann RN - 01/05/2025 10:50 AM EDT CARE MANAGEMENT - ADULT TRANSITION NOTE [facility] [address] Name: Andrade Mcfarlane Location: [facility] B640/B Date: 01/05/2025 Time: 10:50 AM Risk Stratification Readmission Risk Score: 13.1 (01/05/25 0802) AM-PAC Score With Stairs : 24 (01/05/25 0810) Caregiver Information Emergency Contacts Name Relation Home Work Mobile Jie Mcfarlane Spouse [phone] Other Contacts None on File Transition of Care Checklist Narrative: Chart reviewed, pt discussed in IDT rounds, pt is not medically ready for discharge today. Nutrition and Palliative teams following. Plan for EUS GJ axios stent placement today. CM needs uncertain at this time. CM will continue to follow throughout hospitalization for developing discharge needs. Anticipated Transportation at Discharge: family Patient/Family Expectations: tbd Transition Planning Additional Considerations: none Care Management will continue to monitor and assist with discharge planning needs * Care Plan - Marguerite Cooper RN - 01/04/2025 2:23 PM EDT Clinical Goal(s): Patient will remain free from falls. (01/04/25 0655) Possible barriers to meeting goal(s)/advancing plan of care: Generalized weakness Stability of the patient: Moderately unstable - medium risk of patient condition declining or worsening Summary regarding today's goal(s): Met: Has been up to chair and ambulated in hallway with staff assist. Recommendations: Continue fall risk protocol while increasing activity. * Diagnostic Clarification - Nilson Duran MD - 01/04/2025 12:50 PM EDT The patient has been diagnosed with severe protein calorie malnutrition * Care Plan - Jeb Myers RN - 01/04/2025 1:41 AM EDT Clinical Goal(s): pt will remain free from N/V (01/03/25 2130) Possible barriers to meeting goal(s)/advancing plan of care: medical diagnosis Stability of the patient: Moderately stable - low risk of patient condition declining or worsening Summary regarding today's goal(s): Met: goal met Recommendations: continue to monitor patient output. * Care Plan - Marguerite Cooper RN - 01/03/2025 2:35 PM EDT Clinical Goal(s): Patient will remain free from falls (01/03/25 0700) Possible barriers to meeting goal(s)/advancing plan of care: generalized weakness Stability of the patient: Moderately unstable - medium risk of patient condition declining or worsening Summary regarding today's goal(s): Met: Has been out of bed with staff assist and remains free from falls. Recommendations: Continue fall risk protocol. * Ancillary Progress Note - Nadine Mann RN - 01/03/2025 11:51 AM EDT CARE MANAGEMENT - ADULT TRANSITION NOTE [facility] [address] Name: Andrade Mcfarlane Location: [facility] B640/B Date: 01/03/2025 Time: 11:51 AM Risk Stratification Readmission Risk Score: 12.69 (01/03/25 0800) AM-PAC Score With Stairs : 18 (01/03/25 0800) Caregiver Information Emergency Contacts Name Relation Home Work Mobile Maeve,Jie Spouse [phone] Other Contacts None on File Transition of Care Checklist Narrative: Chart reviewed, pt discussed in IDT rounds, pt is not medically ready for discharge today. Pt currently NPO with NGT in place. GI following - plan for EUS GJ placement on Friday. CM needs uncertain at this time. CM will continue to follow throughout hospitalization for developing discharge needs. Anticipated Transportation at Discharge: tbd Patient/Family Expectations: tbd Transition Planning Additional Considerations: none Care Management will continue to monitor and assist with discharge planning needs * Ancillary Progress Note - Lauren Marie RRT - 01/03/2025 6:22 AM EDT PATIENT DRIVEN PROTOCOL - Respiratory Care Services [address] [address] Name: Andrade Mcfarlane Location: [facility] B640/B Date: 01/03/2025 Time: 6:22 AM Patient Driven Protocol Summary: Initial evaluation performed. This Treatment Plan and medications will be reviewed by the Primary Care Team for any contraindications. Respiratory Care Treatment Plan Pulmonary Volume Expansion Therapy: Incentive Spirometry PRN to prevent or treat alveolar consolidation and atelectasis. . The patient will be re-evaluated: No re-evaluation needed. Indications for treatment met. The Triage Level is: (Assessment Score = 0 - 5) Level 5. Triage Level Definitions: Level 1 Severe Respiratory/Airway Compromise Level 2 Moderate Respiratory/Airway Compromise or high risk for pulmonary complications Level 3 Mild Respiratory/Airway Compromise or moderate risk for pulmonary complications Level 4 Episodic Respiratory/Airway Compromise or low risk for pulmonary complications Level 5 No Respiratory/Airway Compromise Triage 1 Triage 2 Triage 3 Triage 4 Triage 5 greater than 20 16 - 20 11 - 15 6 - 10 0 - 5 Medical Record Assessment Clinical Findings Pulmonary Status: 1 - Smoking less than 1 pack/day or quit less than 5 years ago Surgical Status: 0 - No Surgical History Chest X-Ray: 0 - Not Performed or performed greater than 3 days ago Assessment Score: 1 Patient Assessment Clinical Findings Respiratory Pattern: 0 - RR 12 - 20; Patient only gets breathless with strenuous exercise. Breath Sounds: 2 - Diminished bilaterally Cough Effectiveness: 0 - Strong non-productive Sputum Production: 0 - No sputum production Level of Activity: 1 - Ambulatory with assist O2 needed to keep SpO2 greater than or equal to 92%: 0 - Room Air Assessment Score: 3 Total Assessment Score: 4 Breath Sounds: Inspiratory and expiratory diminished bilaterally.. Cough and Sputum: No cough was present.. Vital Signs: Resp: 16 (01/03/25452) Pulse: 103 (01/03/25541) Temp: 37.2 °C (99 °F) (01/03/25452) BP: 156/81 (01/03/25541) SpO2: 98 % (01/03/25452) PFT: Minimal Predicted IC: .930 L. Inspiratory capacity: 2.5L. Primary Service: Surgery [facility]. Admitting Diagnosis: Bowel obstruction (HCC) [K56.609] Pancreatic mass [K86.89] SBO (small bowel obstruction) (HCC) [K56.609] Prescriptions/Home Medications/Durable Medical Equipment: no respiratory medications or devices reported. * Care Plan - Marty Haynes RN - 01/03/2025 5:00 AM EDT Clinical Goal(s): Ensure Pt safewty and comfort (01/03/25447) Possible barriers to meeting goal(s)/advancing plan of care: Pain . NPO. Currently awaiting definitive plan of care . Stability of the patient: Moderately stable - low risk of patient condition declining or worsening Summary regarding today's goal(s): Met: Pt made safe and comfortable. No falls within shift . Needs attended . Recommendations: Continue to utilize falls precautions, assess patient for needs, assess patient for the presence of pain and provide intervention as needed, ensure patient repositioning, ensure callbell within reach, hourly rounding. Continue to follow treatment plan. documented in this encounter Plan of Treatment Upcoming Encounters Date Type Department Care Team (Late st Contact Info) Description 01/10/2025 5:50 PM EDT Anticoagulation Pharmacy, [facility] [address] [place] [address] Pharmacist1, [facility] [address] [place], [place] [address] 01/18/2025 10:00 AM EDT Office Visit Hematology/Oncology [facility] [address] [place], [place] [phone] Niya Nicole MD [address] [place] [address] 01/19/2025 10:00 AM EDT Office Visit Palliative Medicine [facility] [address] [place] [phone] Fanta Edwards MD [address] [place] [address] 03/10/2025 8:20 AM EDT Office Visit Dermatology [facility] [address] [place], [place] [address] Kandi Rubalcava PA-C [address] [place] [address] 03/25/2025 10:20 AM EDT Office Visit Family Practice [facility] [address] [place], [place] [address] Bubba Espinoza, DO [address] [place] [address] 04/06/2025 3:30 PM EDT Office Visit Cardiology, [facility] [address] [place] [phone] Florida Martinez IV, MD [address] [place] [address] 06/29/2025 2:00 PM EDT Office Visit Nephrology, [facility] [address] [place], [place] [address] Aravind De La O MD [address] [place], [place] [address] 08/15/2025 9:20 AM EST Office Visit Family Practice [facility] [address] [facility] [place] [address] Bubba Espinoza DO [address] [facility] [place] [address] 10/24/2025 11:00 AM EST Office Visit Cardiology, [facility] [address] [place] [phone] Heidi Hitchcock PA-C [address] [place] [address] Health Maintenance Due Date Last Done Comments Adult Wellness Visit 10/04/2022 10/04/2021 COVID-19 Vaccine ( season) 2024 02/13/2024, 07/07/2023, 11/15/2022, Additional history exists CKD PHOS USE SMARTSET 81161 01/03/202612/2024, 01/03/2025, 11/26/2024, Additional history exists CKD HGB USE SMARTSET 84240 01/07/202601/07, 01/06/2025, 01/05/2025, Additional history exists DTap/Tdap [...] this encounter Medical Devices Implanted Type Area Division Plant Engineer Device Identifier Shelf Expiration Date Model / Serial / Lot Clip Quick 2.8mm 230cm - [id number] Implanted:Qty: 1 on 08/19/2022 by Jojo Pearson MD at ENDOSCOPY [facility] [employer] 12/29/2024 HX-UR.A / / 25K Clip Quick 2.8mm 230cm - [id number] Implanted:Qty: 1 on 08/19/2022 by Jojo Pearson MD at ENDOSCOPY [facility] [employer] 12/29/2024 HX-UR.A / / 25K Clip Quick 2.8mm 230cm - [id number] Implanted:Qty: 1 on 08/19/2022 by Jojo Pearson MD at ENDOSCOPY [facility] [employer] 12/29/2024 HX-202UR.A / / 25K Clip Quick 2.8mm 230cm - [id number] Implanted:Qty: 1 on 08/19/2022 by Jojo Pearson MD at ENDOSCOPY [facility] [employer] 12/29/2024 HX-UR.A / / 25K Clip Quick 2.8mm 230cm - [id number] Implanted:Qty: 1 on 08/19/2022 by Jojo Pearson MD at ENDOSCOPY [facility] [employer] 12/29/2024 HX-202UR.A / / 25K Clip Quick 2.8mm 230cm - [id number] Implanted:Qty: 1 on 08/19/2022 by Jojo Pearson MD at ENDOSCOPY [facility] [employer] 12/29/2024 HX-202UR.A / / 25K Stent A[employer]os [id number] - [id number] Implanted:Qty: 1 on 01/05/2025 by Jay Newman DO at ENDOSCOPY [facility] [employer] [facility] END[facility]COPY [id number] 09/09/2025 [id number] / / [id number] documented as of this encounter Procedures Procedure Name Priority Date/Time Associated Diagnosis Comments BASIC METABOLIC PANEL Routine 01/07/2025 9:11 AM EDT PT INR Routine 01/07/2025 9:11 AM EDT CBC Routine 01/07/2025 9:11 AM EDT MAGNESIUM Routine 01/07/2025 9:11 AM EDT XR ABDOMEN 1 VIEW STAT 01/06/2025 9:2 7 AM EDT BASIC METABOLIC PANEL Routine 01/06/2025 4:10 AM EDT PT INR Routine 01/06/2025 4:10 AM EDT CBC Routine 01/06/2025 4:10 AM EDT MAGNESIUM Routine 01/06/2025 4:10 AM EDT US ENDOSCOPIC Routine 01/05/2025 4:21 PM EDT FLUORO MISCELLANEOUS GASTRO Routine 01/05/2025 4:10 PM EDT EGD, w/Endoscopic US 01/05/2025 2:44 PM EDT SBO (small bowel obstruction) (HCC) EGD, Flexible, Diagnostic 01/05/2025 2:44 PM EDT SBO (small bowel obstruction) (HCC) UPPER ENDOSCOPIC U/S 01/05/2025 2:13 PM EDT UPPER GI ENDOSCOPY 01/05/2025 2: 10 PM EDT BASIC METABOLIC PANEL Routine 01/05/2025 4:16 AM EDT PT INR Routine 01/05/2025 4:16 AM EDT CBC Routine 01/05/2025 4:16 AM EDT MAGNESIUM Routine 01/05/2025 4:16 AM EDT BASIC METABOLIC PANEL Routine 01/04/2025 4:25 AM EDT CBC Routine 01/04/2025 4:[address] CHEST W CONTRAST Routine 01/04/2025 1 2:34 AM EDT Other disorders of lung Other nonspecific abnormal finding of lung field HC ECG TRACING ONLY STAT 01/03/2025 2 :47 PM EDT Arrhythmia RENAL FUNCTION PANEL STAT 01/03/2025 2:37 PM EDT CA 19-9 Add-on 01/03/2025 4:50 AM EDT HEPATIC FUNCTION PANEL STAT 01/03/2025 4:50 AM EDT BASIC METABOLIC PANEL Routine 01/03/2025 4:50 AM EDT ABO/RH STAT 01/03/2025 4:50 AM EDT TYPE AND SCREEN STAT 01/03/2025 4:50 AM EDT PT INR Routine 01/03/2025 4:50 AM EDT PHOSPHORUS Routine 01/03/2025 4:50 AM EDT CALCIUM, IONIZED, WHOLE BLOOD Routine 01/03/2025 4:50 AM EDT CBC Routine 01/03/2025 4:50 AM EDT MAGNESIUM Routine 01/03/2025 4:50 AM EDT XR ABDOMEN 1 VIEW STAT 01/03/2025 4:4 7 AM EDT Encounter for fitting and adjustment of other gastrointestinal appliance and device Alcoholic liver disease, unspecified (HCC) documented in this encounter Results * PT INR (01/07/2025 9:11 AM EDT) [facility] Prothrombin Time 14.8 11.6 - 15.2 seconds 01/07/2025 10:01 AM EDT LABORATORY [facility] INR 1.1 0.8 - 1.2 01/07/2025 10:01 AM EDT LABORATORY [facility] Blood Venous blood specimen / Unknown Venipuncture / Unknown 01/07/2025 9:11 AM EDT 01/07/2025 9:39 AM EDT Narrative [facility]ORY [facility] - 01/07/2025 10:01 AM EDT Warfarin Therapy INR: 2.0-3.0 conventional anticoagulation INR: 2.5-3.5 high intensity anticoagulation Nilson Duran MD LAB BLOOD ORDERABLES Final Resul t Performing Organization Address City/[facility]/ZIP Co [place] [address] * MAGNESIUM (01/07/2025 9:11 AM EDT) [facility] Magnesium 2.0 1.5 - 2.6 mg/dL 01/07/2025 10:08 AM EDT LABORATORY [facility] Blood Venous blood specimen / Unknown Venipuncture / Unknown 01/07/2025 9:11 AM EDT 01/07/2025 9:39 AM EDT Nilson Duran MD LAB BLOOD ORDERABLES Final Resul t Performing Organization Address City/[facility] Co [place] [address] * (ABNORMAL) CBC (01/07/2025 9:11 AM EDT) [facility] WBC 17.50(H) 4.00 - 10.80 K/uL 01/07/2025 9:49 AM EDT [facility] RBC 5.01 4.50 - 5.25 M/uL 01/07/2025 9:49 AM EDT [facility] HGB 15.1 14.0 - 16.8 g/dL 01/07/2025 9:49 AM EDT [facility] HCT 46.8 40.0 - 48.4 % 01/07/2025 9:49 AM EDT [facility] MCV 93.4 82.0 - 99.5 fL 01/07/2025 9:49 AM EDT [facility] MCH 30.1 27.0 - 34.0 pg 01/07/2025 9:49 AM EDT LAB[facility] MCHC 32.3 32.0 - 36.0 g/dL 01/07/2025 9:49 AM EDT [facility] RDW 13.4 11.5 - 15.5 % 01/07/2025 9:49 AM EDT LAB[facility]ORY [facility] PLT 543(H) 140 - 400 K/uL 01/07/2025 9:49 AM EDT [facility] MPV 10.4 6.6 - 11.1 fL 01/07/2025 9:49 AM EDT [facility] NRBCs 0 <=0 /100 WBCs 01/07/2025 9:49 AM EDT [facility] Blood Venous blood specimen / Unknown Venipuncture / Unknown 01/07/2025 9:11 AM EDT 01/07/2025 9:39 AM EDT us Anais Gregg MD LAB BLOOD ORDERABLES Final Resul t Performing Organization Address City/State/[facility] Co de Phone Number LABORATORY [facility] [address] [place] [address] * (ABNORMAL) BASIC METABOLIC PANEL (01/07/2025 9:11 AM EDT) BUN 15 6 - 20 mg/dL 01/07/2025 10:08 AM EDT [facility] CREATININE 1.0 0.6 - 1.2 mg/dL 01/07/2025 10:08 AM EDT [facility] EGFR 75 >=60 mL/min 01/07/2025 10:08 AM EDT [facility]ORY [facility] Comment:eGFR is calculated b ased on the CKD-EPI 2020 equation. SODIUM 141 135 - 146 mmol/L 01/07/2025 10:08 AM EDT [facility] POTASSIUM 3.9 3.5 - 5.1 mmol/L 01/07/2025 10:08 AM EDT LABORATORY C CHLORIDE 101 98 - 107 mmol/L 01/07/2025 10:08 AM EDT [facility] CO2 26 22 - 32 mmol/L 01/07/2025 10:08 AM EDT LABORATORY [facility] ANION GAP 14 7 - 15 mmol/L 01/07/2025 10:08 AM EDT LABORATORY [facility] GLUCOSE 168(H) 70 - 120 mg/dL 01/07/2025 10:08 AM EDT LABORATORY C CALCIUM 9.1 8.4 - 10.2 mg/dL 01/07/2025 10:08 AM EDT LABORATORY [facility] Blood Venous blood specimen / Unknown Venipuncture / Unknown 01/07/2025 9:11 AM EDT 01/07/2025 9:39 AM EDT Anais Gregg MD LAB BLOOD ORDERABLES Final Resul t LABORATORY [facility] [address] [place] [address] * XR ABDOMEN 1 VIEW (01/06/2025 9:27 AM EDT) Anatomical Region Laterality Modality Abdomen, Pelvis Computed Radiogr aphy 01/06/2025 9:46 AM EDT Impressions 01/06/2025 9:44 AM EDT IMPRESSION Nonobstructive bowel gas pattern. Narrative 01/06/2025 9:44 AM EDT EXAM XR ABDOMEN 1 VIEW - 01/06/2025 9:27 am HISTORY SBO, s/p GJ placement, received pills this AM, now with pain COMPARISON: XR abdomen dated 01/03/2025 TECHNIQUE Single AP view of the abdomen and pelvis is submitted. FINDINGS Catheters/tubes/devices/foreign bodies: AXIOS stent. CBD stent. cholecystectomy clips. sternotomy wires. Interval decompression of the stomach. Nonobstructive bowel gas pattern. Contrast from prior endoscopic procedure in the colon. Pneumobilia. Degenerative osseous changes. The lung bases are clear. Procedure Note Cabrera Bhandari DO - 01/06/2025 EXAM XR ABDOMEN 1 VIEW - 01/06/2025 9:27 am HISTORY SBO, s/p GJ placement, received pills this AM, now with pain COMPARISON: XR abdomen dated 01/03/2025 TECHNIQUE Single AP view of the abdomen and pelvis is submitted. FINDINGS Catheters/tubes/devices/foreign bodies: AXIOS stent. CBD stent.cholecystectomy clips. sternotomy wires. Interval decompression of the stomach. Nonobstructive bowel gas pattern.Contrast from prior endoscopic procedure in the colon. Pneumobilia. Degenerative osseous changes. The lung bases are clear. IMPRESSION IMPRESSION Nonobstructive bowel gas pattern. Marina Conway DO RADIOLOGY (RAD GENERAL) Final Result * (ABNORMAL) PT INR (01/06/2025 4:10 AM EDT) Prothrombin Time 16.0(H) 11.6 - 15.2 seconds 01/06/2025 5:49 AM EDT LABORATORY [facility] INR 1.3(H) 0.8 - 1.2 01/06/2025 5:49 AM EDT LABORATORY [facility] Blood Venous blood specimen / Unknown Venipuncture / Unknown 01/06/2025 4:10 AM EDT 01/06/2025 5:12 AM EDT Narrative LABORATORY C - 01/06/2025 5:49 AM EDT Warfarin Therapy INR: 2.0-3.0 conventional anticoagulation INR: 2.5-3.5 high intensity anticoagulation Nilson Duran MD LAB BLOOD ORDERABLES Final Resul t LABORATORY [facility] [address] [place] [address] * MAGNESIUM (01/06/2025 4:10 AM EDT) Magnesium 2.1 1.5 - 2.6 mg/dL 01/06/2025 5:43 AM EDT LABORATORY [facility] Blood Venous blood specimen / Unknown Venipuncture / Unknown 01/06/2025 4:10 AM EDT 01/06/2025 5:12 AM EDT us Nilson Druan MD LAB BLOOD ORDERABLES Final Resul t [facility] [address] [place] [address] * (ABNORMAL) CBC (01/06/2025 4:10 AM EDT) WBC 16.14(H) 4.00 - 10.80 K/uL 01/06/2025 5:27 AM EDT [facility]ORY [facility] RBC 4.57 4.50 - 5.25 M/uL 01/06/2025 5:27 AM EDT [facility] HGB 13.6(L) 14.0 - 16.8 g/dL 01/06/2025 5:27 AM EDT [facility]ORY [facility] HCT 42.5 40.0 - 48.4 % 01/06/2025 5:27 AM EDT [facility] MCV 93.0 82.0 - 99.5 fL 01/06/2025 5:27 AM EDT [facility] MCH 29.8 27.0 - 34.0 pg 01/06/2025 5:27 AM EDT LAB[facility] MCHC 32.0 32.0 - 36.0 g/dL 01/06/2025 5:27 AM EDT [facility] RDW 13.6 11.5 - 15.5 % 01/06/2025 5:27 AM EDT LAB[facility] PLT 470(H) 140 - 400 K/uL 01/06/2025 5:27 AM EDT [facility] MPV 10.4 6.6 - 11.1 fL 01/06/2025 5:27 AM EDT [facility] NRBCs 0 <=0 /100 WBCs 01/06/2025 5:27 AM EDT [facility] Blood Venous blood specimen / Unknown Venipuncture / Unknown 01/06/2025 4:10 AM EDT 01/06/2025 5:12 AM EDT us Anais Gregg MD LAB BLOOD ORDERABLES Final Resul t Performing Organization Address City/[facility]/ZIP Co de Phone Number LABORATORY [facility] [address] [place] [address] * (ABNORMAL) BASIC METABOLIC PANEL (01/06/2025 4:10 AM EDT) BUN 16 6 - 20 mg/dL 01/06/2025 5:43 AM EDT [facility] CREATININE 0.9 0.6 - 1.2 mg/dL 01/06/2025 5:43 AM EDT [facility] EGFR 85 >=60 mL/min 01/06/2025 5:43 AM EDT LAB[facility]ORY [facility] Comment:eGFR is calculated b ased on the CKD-EPI 2020 equation. SODIUM 139 135 - 146 mmol/L 01/06/2025 5:43 AM EDT LAB[facility] POTASSIUM 3.1(L) 3.5 - 5.1 mmol/L 01/06/2025 5:43 AM EDT LAB[facility] CHLORIDE 99 98 - 107 mmol/L 01/06/2025 5:43 AM EDT [facility] CO2 25 22 - 32 mmol/L 01/06/2025 5:43 AM EDT [facility] ANION GAP 15 7 - 15 mmol/L 01/06/2025 5:43 AM EDT [facility] GLUCOSE 103 70 - 120 mg/dL 01/06/2025 5:43 AM EDT [facility] CALCIUM 8.4 8.4 - 10.2 mg/dL 01/06/2025 5:43 AM EDT [facility] Blood Venous blood specimen / Unknown Venipuncture / Unknown 01/06/2025 4:10 AM EDT 01/06/2025 5:12 AM EDT us Anais Gregg MD LAB BLOOD ORDERABLES Final Resul t Performing Organization Address City/[facility]/ZIP Co de Phone Number LABORATORY [facility] [address] [place] [address] * US ENDOSCOPIC (01/05/2025 4:21 PM EDT) Narrative 01/05/2025 4:22 PM EDT This is an imaging study not interpreted or resulted by a [facility] or [facility] contracted radiologist. us Jay Newman DO RAD ULTRASOUND Final Result * FLUORO MISCELLANEOUS GASTRO (01/05/2025 4:10 PM EDT) Narrative 01/05/2025 4:11 PM EDT This procedure will not be read by a Radiologist. Please see operative note. us Jay Newman DO RAD FLUOROSCOPY Final Result * UPPER ENDOSCOPIC U/S (01/05/2025 2:13 PM EDT) 01/05/2025 2:13 PM EDT Narrative Procedure Note Charli Coleman MD - 01/05/2025 2:13 PM EDT [facility] Patient Name: Andrade Mcfarlane Procedure Date: 01/05/2025 2:13 PM Date of : 1940 Admit Type: Inpatient Note Status:Finalized Date of : 1940 Admit Type: Inpatient Age: 84 Room: Endo - Room 9 Gender: Male Note Status: Finalized Procedure: Upper EUS Indications: Abnormal abdominal/pelvic CT scan, EUS-guidedgastroenterostomy (EUS-GE) Providers: Jay Newman DO (Doctor), Chente Cordova, RN, RONY Hassan, Danae Turner (Assisting Doctor) Patient Profile: This is an 84 year old male. Refer to note inpatient chart for documentation of history and physical. Referring MD: Marina Soto Sara West, DO Medicines: General Anesthesia, Cipro 400 mg IV, Glucagon 1.5mg IV Complications: No immediate complications. Estimated blood loss:None. Procedure: Pre-Anesthesia Assessment: - - Prior to the procedure, a History [...] to the procedure by the physician, the nurse, the finish mixer andthe product development technician. The procedure was verified in the endoscopy suite. - See pre-anesthesia H&P in [facility]. - The medication list for this patient has beenreviewed prior to the procedure and has been determined that the patient may proceedwith the planned study. Any medication changes made as a result of the findingsof this procedure have been discussed with the patient and/or district representative atthe time of discharge from the department. - Immediately prior to administration ofmedications, the patient was re-assessed for adequacy to receive sedatives. - After obtaining informed consent, the endoscopewas passed under direct vision. All instruments were visually inspected immediatelybefore and after removal from the patient to ensure they are fully intact. - Throughout the procedure, the patient's bloodpressure, pulse, and oxygen saturations were monitored continuously. - The supervising physician was present for theentire procedure from scope insertion until scope withdrawal. After obtaining informed consent, the endoscope waspassed under direct vision. All instruments were visually inspected immediatelybefore and after removal from the patient to ensure they are fully intact. Throughout the procedure, the patient's bloodpressure, pulse, and oxygen saturations were monitored continuously. The upper EUS wastechnically difficult and complex due to EUS-gastroenterostomy creation. Successfulcompletion of the procedure was aided by performing the maneuvers documented (below) inthis report. The patient tolerated the procedure well. The [id number] Endoscope([id number]) was introduced through the mouth, and advanced to the stomach for ultrasoundexamination. Findings & Specimens: EUS-GUIDED GASTROENTEROSTOMY (EUS-GE): The duodenum and jejunum was filled with methylene blue mixed withsterile water and contrast to distend the distal duodenum and proximal jejunum. The decision was made to create a gastro-enterostomy using the AXIOSstent system. Once an appropriate position in the stomach was identified, the common wall between thestomach and the jejunum was interrogated utilizing color Doppler imaging to identify interposedvessels. The AXIOS stent and electrocautery device was introduced through theworking channel. Current was applied to the cautery tip and then used to increase the diameter ofthe stoma. The AXIOS device was advanced into the jejunum using freehand puncture technique, and a 20x 10 mm AXIOS stent was placed with the flanges in close approximation to the pierce of the stomachand the jejunum through the gastro-enterostomy. The stent was successfully placed. I personallyinterpreted the fluoroscopic images. The EUS-guided gastrojejunostomy was successfully performedunder endosonographic and fluoroscopic guidance. I personally interpreted the fluoroscopicimages. Placement of a long 0.025 inch long angled Visiglide guidewire wasattempted. This passed successfully through the stent. A biliary balloon cathetor was passed successfullyover the wire and contrast was injected into the lumen to confirm sppropriate stent position. STENT DILATION: A TTS dilator was passed through the scope. Dilation of the stentlumen with a 12-13.5-15 mm x 3 cm CRE-Rx balloon dilator was performed to 15 mm under fluoroscopicguidance. The orojejunal drain was then removed and gastrojejunal patency wasconfirmed via relook endoscopy and with contrast injection. I personally interpreted the fluoroscopicimages Impression: EUS-guided gastrojejunostomy formed with 20 mmx 10mm Axios stent. Recommendation: - Return the patient to the hospital [facility] for[facility]ing care - Patient counselled about possibility of stentmigration, with recurrence of gastric obstruction, requiring repeat endoscopy. - Full liquid diet for 24 hours, and advance tomechanical soft as tolerated. Do not advance beyond mechanical soft due to risk of stentocclusion or migration. Jay Newman DO 01/05/2025 4:38:56 PM This report has been signed electronically. Danae Turner, Estimated Blood Loss: Estimated blood loss: none. Charli Proctor MD GASTRO UPPER Final Result * UPPER GI ENDOSCOPY (01/05/2025 2:10 PM EDT) 01/05/2025 2:10 PM EDT Narrative Procedure Note Charli Coleman MD - 01/05/2025 2:10 PM EDT [facility] Patient Name: Andrade Mcfarlane Procedure Date: 01/05/2025 2:10 PM Date of : 1940 Admit Type: Inpatient Note Status:Finalized Date of : 1940 Admit Type: Inpatient Age: 84 Room: Endo - Room 9 Gender: Male Note Status: Finalized Procedure: Upper GI endoscopy Indications: Abnormal CT of the GI tract, Suspected gastricoutlet obstruction, For therapy of gastric outlet obstruction Providers: Jay Newman DO (Doctor), Chente Cordova RN, KayB. Mitchel RN, Danae Turner (Assisting Doctor) Patient Profile: This is an 84 year old male. Refer to note inpatient chart for documentation of history and physical. Referring MD: Marina Soto SaraF. West, DO Medicines: General Anesthesia, Cipro 400 mg IV, Glucagon 1.5mg IV Complications: No immediate complications. Estimated blood loss:None. Procedure: Pre-Anesthesia Assessment: - - Prior to the procedure, a History [...] to the procedure by the physician, the nurse, the finish mixer andthe product development technician. The procedure was verified in the endoscopy suite. - See pre-anesthesia H&P in [facility]. - The medication list for this patient has beenreviewed prior to the procedure and has been determined that the patient may proceedwith the planned study. Any medication changes made as a result of the findingsof this procedure have been discussed with the patient and/or district representative atthe time of discharge from the department. - Immediately prior to administration ofmedications, the patient was re-assessed for adequacy to receive sedatives. - After obtaining informed consent, the endoscopewas passed under direct vision. All instruments were visually inspected immediatelybefore and after removal from the patient to ensure they are fully intact. - Throughout the procedure, the patient's bloodpressure, pulse, and oxygen saturations were monitored continuously. - The supervising physician was present for theentire procedure from scope insertion until scope withdrawal. After obtaining informed consent, the endoscope waspassed under direct vision. All instruments were visually inspected immediatelybefore and after removal from the patient to ensure they are fully intact. Throughout the procedure, the patient's bloodpressure, pulse, and oxygen saturations were monitored continuously. The [id number] ([id number]) was introduced through the mouth, and advanced to the second partof duodenum. The upper GI endoscopy was accomplished without difficulty. Thepatient tolerated the procedure well. Findings & Specimens: The Z-line was regular and was found 39 cm from the incisors. LA Grade D (one or more mucosal breaks involving at least 75% ofesophageal circumference) esophagitis with no bleeding was found in the middle and lower thirds of theesophagus. Localized mildly erythematous mucosa without bleeding was found inthe gastric antrum. 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 EUS-GUIDED GASTROENTEROSTOMY (EUS-GE): A 0.025" long angled Visiglide guidewire was passed through thetherapeutic endoscope and maneuvered across the luminal stenosis, and then a biliary balloon catheter waspassed successfully over the wire and contrast was injected into the lumen to ascertain the length ofthe stenosis under fluoroscopic guidance. I personally interpreted the fluoroscopic images A 10 Fr orojejunal drain was passed into the proximal jejunum overthe guidewire. The therapeutic endoscope was exchanged off to a therapeuticechoendoscope, passed along side the catheter. Impression: - Z-line regular, 39 cm from the incisors. - LA Grade D esophagitis with no bleeding. - Erythematous mucosa in the antrum. - Duodenal obstruction s/p margarita-jejunal catheterplacement for EUS guided GJ Recommendation: - Proceed with EUS - PPI daily Jay Newman DO 01/05/2025 4:36:37 PM This report has been signed electronically. Danae Turner, Estimated Blood Loss: Estimated blood loss: none. Charli Proctor MD GASTRO UPPER Final Result * (ABNORMAL) PT INR (01/05/2025 4:16 AM EDT) Prothrombin Time 16.7(H) 11.6 - 15.2 seconds 01/05/2025 5:06 AM EDT LABORATORY C INR 1.3(H) 0.8 - 1.2 01/05/2025 5:06 AM EDT LAB[facility]ATORY [facility] Blood Venous blood specimen / Unknown Venipuncture / Unknown 01/05/2025 4:16 AM EDT 01/05/2025 4:25 AM EDT Narrative LABORATORY [facility] - 01/05/2025 5:06 AM EDT Warfarin Therapy INR: 2.0-3.0 conventional anticoagulation INR: 2.5-3.5 high intensity anticoagulation us Nilson Duran MD LAB BLOOD ORDERABLES Final Resul t Performing Organization Address [facility] Co de Phone Number LABORATORY [facility] [address] [place] [address] * MAGNESIUM (01/05/2025 4:16 AM EDT) Magnesium 2.3 1.5 - 2.6 mg/dL 01/05/2025 4:55 AM EDT LABORATORY [facility] Blood Venous blood specimen / Unknown Venipuncture / Unknown 01/05/2025 4:16 AM EDT 01/05/2025 4:25 AM EDT us Nilson Duran MD LAB BLOOD ORDERABLES Final Resul t Performing Organization Address [facility] de Phone Number LABORATORY [facility] [address] [place] [address] * (ABNORMAL) CBC (01/05/2025 4:16 AM EDT) WBC 14.11(H) 4.00 - 10.80 K/uL 01/05/2025 4:41 AM EDT LABORATORY [facility] RBC 4.58 4.50 - 5.25 M/uL 01/05/2025 4:41 AM EDT LABORATORY [facility] HGB 14.0 14.0 - 16.8 g/dL 01/05/2025 4:41 AM EDT LABORATORY [facility] HCT 42.3 40.0 - 48.4 % 01/05/2025 4:41 AM EDT LABORATORY [facility] MCV 92.4 82.0 - 99.5 fL 01/05/2025 4:41 AM EDT LABORATORY [facility] MCH 30.6 27.0 - 34.0 pg 01/05/2025 4:41 AM EDT LABORATORY [facility] MCHC 33.1 32.0 - 36.0 g/dL 01/05/2025 4:41 AM EDT LABORATORY [facility] RDW 13.6 11.5 - 15.5 % 01/05/2025 4:41 AM EDT LABORATORY [facility] PLT 438(H) 140 - 400 K/uL 01/05/2025 4:41 AM EDT LABORATORY [facility] MPV 10.1 6.6 - 11.1 fL 01/05/2025 4:41 AM EDT LABORATORY [facility] NRBCs 0 <=0 /100 WBCs 01/05/2025 4:41 AM EDT LAB[facility]ATORY [facility] Blood Venous blood specimen / Unknown Venipuncture / Unknown 01/05/2025 4:16 AM EDT 01/05/2025 4:25 AM EDT us Anais Gregg MD LAB BLOOD ORDERABLES Final Resul t LABORATORY [facility] [address] [place] [address] * (ABNORMAL) BASIC METABOLIC PANEL (01/05/2025 4:16 AM EDT) BUN 21(H) 6 - 20 mg/dL 01/05/2025 4:55 AM EDT LABORATORY [facility] CREATININE 1.0 0.6 - 1.2 mg/dL 01/05/2025 4:55 AM EDT LABORATORY [facility] EGFR 71 >=60 mL/min 01/05/2025 4:55 AM EDT LABORATORY [facility] Comment:eGFR is calculated b ased on the CKD-EPI 2020 equation. SODIUM 141 135 - 146 mmol/L 01/05/2025 4:55 AM EDT LABORATORY [facility] POTASSIUM 3.7 3.5 - 5.1 mmol/L 01/05/2025 4:55 AM EDT LABORATORY [facility] CHLORIDE 100 98 - 107 mmol/L 01/05/2025 4:55 AM EDT LABORATORY [facility] CO2 28 22 - 32 mmol/L 01/05/2025 4:55 AM EDT LABORATORY [facility] ANION GAP 13 7 - 15 mmol/L 01/05/2025 4:55 AM EDT LABORATORY [facility] GLUCOSE 173(H) 70 - 120 mg/dL 01/05/2025 4:55 AM EDT LABORATORY [facility] CALCIUM 8.7 8.4 - 10.2 mg/dL 01/05/2025 4:55 AM EDT LABORATORY [facility] Blood Venous blood specimen / Unknown Venipuncture / Unknown 01/05/2025 4:16 AM EDT 01/05/2025 4:25 AM EDT us Anais Gregg MD LAB BLOOD ORDERABLES Final Resul t LABORATORY [facility] [address] [place] [address] * (ABNORMAL) CBC (01/04/2025 4:25 AM EDT) WBC 14.11(H) 4.00 - 10.80 K/uL 01/04/2025 5:03 AM EDT LABORATORY [facility] RBC 4.71 4.50 - 5.25 M/uL 01/04/2025 5:03 AM EDT LABORATORY [facility] HGB 14.6 14.0 - 16.8 g/dL 01/04/2025 5:03 AM EDT LABORATORY [facility] HCT 44.3 40.0 - 48.4 % 01/04/2025 5:03 AM EDT LABORATORY [facility] MCV 94.1 82.0 - 99.5 fL 01/04/2025 5:03 AM EDT LABORATORY [facility] MCH 31.0 27.0 - 34.0 pg 01/04/2025 5:03 AM EDT LABORATORY [facility] MCHC 33.0 32.0 - 36.0 g/dL 01/04/2025 5:03 AM EDT LABORATORY [facility] RDW 13.7 11.5 - 15.5 % 01/04/2025 5:03 AM EDT LABORATORY [facility] PLT 453(H) 140 - 400 K/uL 01/04/2025 5:03 AM EDT LAB[facility]ATORY [facility] MPV 10.0 6.6 - 11.1 fL 01/04/2025 5:03 AM EDT LABORATORY [facility] NRBCs 0 <=0 /100 WBCs 01/04/2025 5:03 AM EDT LABORATORY [facility] Blood Venous blood specimen / Unknown Venipuncture / Unknown 01/04/2025 4:25 AM EDT 01/04/2025 4:50 AM EDT Anais Gregg MD LAB BLOOD ORDERABLES Final Resul t LABORATORY [facility] [address] [place] [address] * (ABNORMAL) BASIC METABOLIC PANEL (01/04/2025 4:25 AM EDT) BUN 31(H) 6 - 20 mg/dL 01/04/2025 5:24 AM EDT LABORATORY [facility] CREATININE 1.1 0.6 - 1.2 mg/dL 01/04/2025 5:24 AM EDT LABORATORY [facility] EGFR 64 >=60 mL/min 01/04/2025 5:24 AM EDT LABORATORY [facility] Comment:eGFR is calculated b ased on the CKD-EPI 2020 equation. SODIUM 140 135 - 146 mmol/L 01/04/2025 5:24 AM EDT LABORATORY [facility] POTASSIUM 3.9 3.5 - 5.1 mmol/L 01/04/2025 5:24 AM EDT LABORATORY [facility] CHLORIDE 97(L) 98 - 107 mmol/L 01/04/2025 5:24 AM EDT LABORATORY [facility] CO2 25 22 - 32 mmol/L 01/04/2025 5:24 AM EDT LABORATORY [facility] ANION GAP 18(H) 7 - 15 mmol/L 01/04/2025 5:24 AM EDT LABORATORY [facility] GLUCOSE 83 70 - 120 mg/dL 01/04/2025 5:24 AM EDT LAB[facility]ATORY [facility] CALCIUM 8.6 8.4 - 10.2 mg/dL 01/04/2025 5:24 AM EDT LABORATORY [facility] Blood Venous blood specimen / Unknown Venipuncture / Unknown 01/04/2025 4:25 AM EDT 01/04/2025 4:50 AM EDT Anais Gregg MD LAB BLOOD ORDERABLES Final Resul t LABORATORY [facility] [address] [place] [address] * CT CHEST W CONTRAST (01/04/2025 12:34 AM EDT) Anatomical Region Laterality Modality Chest, Body, Cardio Computed Navid ography 01/04/2025 7:53 AM EDT Impressions 01/04/2025 7:51 AM EDT IMPRESSION Right lower lobe pulmonary nodules suspicious for metastatic disease. These nodules have appeared since a 09/23/[address] Narrative 01/04/2025 7:[address] CHEST W CONTRAST - 01/04/2025 12:34 am HISTORY cancer staging TECHNIQUE Axial images of the chest were acquired with IV contrast. Coronal and sagittal reformats, as well as a MIP series, are provided. COMPARISON XR CHEST 1 VIEW, ACC: [id number], dated 2024-12-22 21:02:59; CT ABD_PELVIS W IV CONTRAST - WO ORAL CONTRAST, ACC: [id number], dated 2023-09-23 16:21:47; RADIOLOGY EXAM - CT (IMAGES ONLY, NO REPORT), ACC: [id number], dated 2024-12-22 14:37:05 FINDINGS LINES AND DEVICES: Enteric tube tip and side port in the gastric lumen. LUNGS: 1.4 cm solid nodule at the posterior right lung base. 9 mm right lower lobe ill-defined nodule within a surrounding region of ground-glass attenuation PLEURA: No pleural effusions. LARGE AIRWAYS: Patent airways. HEART: Unremarkable. VESSELS: Severe multivessel coronary artery calcifications. THYROID: Unremarkable. MEDIASTINUM: No lymphadenopathy. CHEST WALL/SOFT TISSUES: Unremarkable. UPPER ABDOMEN: Left liver pneumobilia. Bile duct stent traverses a partially visualized pancreatic mass. Cholecystectomy clips. BONES: Sternotomy wires. Degenerative changes without aggressive osseous lesions. Procedure Note Luis Enrique Alexis, - 01/04/[address] CHEST W CONTRAST - 01/04/2025 12:34 am HISTORY cancer staging TECHNIQUE Axial images of the chest were acquired with IV contrast. Coronal andsagittal reformats, as well as a MIP series, are provided. COMPARISON XR CHEST 1 VIEW, ACC: [id number], dated 2024-12-22 21:02:59; CT ABD_PELVIS W IV CONTRAST - WO ORAL CONTRAST, ACC: [id number], [id number] 16:21:47; RADIOLOGY EXAM - CT (IMAGES ONLY, NO REPORT), ACC: [id number], [id number] 14:37:05 FINDINGS LINES AND DEVICES: Enteric tube tip and side port in the gastric lumen. LUNGS: 1.4 cm solid nodule at the posterior right lung base. 9 mm rightlower lobe ill-defined nodule within a surrounding region of ground-glassattenuation PLEURA: No pleural effusions. LARGE AIRWAYS: Patent airways. HEART: Unremarkable. VESSELS: Severe multivessel coronary artery calcifications. THYROID: Unremarkable. MEDIASTINUM: No lymphadenopathy. CHEST WALL/SOFT TISSUES: Unremarkable. UPPER ABDOMEN: Left liver pneumobilia. Bile duct stent traverses apartially visualized pancreatic mass. Cholecystectomy clips. BONES: Sternotomy wires. Degenerative changes without aggressive osseouslesions. IMPRESSION IMPRESSION Right lower lobe pulmonary nodules suspicious for metastatic disease.These nodules have appeared since a 09/23/[address] us Cady HERNADEZ RAD CT Final Re sult * EKG (01/03/2025 2:47 PM EDT) 01/03/2025 2:47 PM EDT Narrative Procedure Note Matt Muñoz MD - 01/03/2025 2:47 PM EDT REASON FOR STUDY: Arrhythmia CONCLUSIONS: Atrial fibrillation Nonspecific ST abnormality When compared with ECG of 22-Dec-2024 22:47, Borderline criteria for Inferior infarct are no longer Present Non-specific change in ST segment in Anterior leads T wave inversion more evident in Anterior-lateral leads Ventricular Rate: 91 Atrial Rate: 86 QRS Duration: 86 QT/QTc: 360/442 ms P-R-T [place]: 0 : 83 : 166 degrees us Anais Gregg MD EKG Final Result [facility] * (ABNORMAL) RENAL FUNCTION PANEL (01/03/2025 2:37 PM EDT) BUN 40(H) 6 - 20 mg/dL 01/03/2025 3:23 PM EDT LABORATORY [facility] CREATININE 1.3(H) 0.6 - 1.2 mg/dL 01/03/2025 3:23 PM EDT LABORATORY [facility] EGFR 55(L) >=60 mL/min 01/03/2025 3:23 PM EDT LABORATORY [facility] Comment:eGFR is calculated b ased on the CKD-EPI 2020 equation. SODIUM 141 135 - 146 mmol/L 01/03/2025 3:23 PM EDT LABORATORY [facility] POTASSIUM 4.1 3.5 - 5.1 mmol/L 01/03/2025 3:23 PM EDT LABORATORY [facility] CHLORIDE 99 98 - 107 mmol/L 01/03/2025 3:23 PM EDT LABORATORY [facility] CO2 29 22 - 32 mmol/L 01/03/2025 3:23 PM EDT LABORATORY C ANION GAP 13 7 - 15 mmol/L 01/03/2025 3:23 PM EDT LABORATORY [facility] GLUCOSE 128(H) 70 - 120 mg/dL 01/03/2025 3:23 PM EDT LABORATORY [facility] CALCIUM 8.8 8.4 - 10.2 mg/dL 01/03/2025 3:23 PM EDT LABORATORY [facility] Albumin 3.4(L) 3.8 - 5.0 g/dL 01/03/2025 3:23 PM EDT LABORATORY [facility] Phosphorus 2.6 2.5 - 4.8 mg/dL 01/03/2025 3:23 PM EDT LABORATORY [facility] Blood Venous blood specimen / Unknown Venipuncture / Unknown 01/03/2025 2:37 PM EDT 01/03/2025 2:56 PM EDT us Anais Gregg MD LAB BLOOD ORDERABLES Final Resul t LABORATORY [facility] [address], [place] [id number] * ABO/RH (01/03/2025 4:50 AM EDT) ABO B 01/03/2025 5:52 AM EDT LABORATORY [facility] BLOOD BANK Rh Positive 01/03/2025 5:52 AM EDT LABORATORY [facility] BLOOD BANK Blood Venous blood specimen / Unknown Venipuncture / Unknown 01/03/2025 4:50 AM EDT 01/03/2025 5:02 AM EDT Aron Land MD LAB BLOOD BANK TEST ORDERABLES Final Result Performing Organization Address [facility] Co de Phone Number LABORATORY [facility] BLOOD BANK [address] [place] [address] * (ABNORMAL) CA 19-9 (01/03/2025 4:50 AM EDT) CA 19-9 295.9(H) <35.0 U/mL 01/03/2025 6:00 AM EDT LABORATORY [facility] Blood Venous blood specimen / Unknown Venipuncture / Unknown 01/03/2025 4:50 AM EDT 01/03/2025 5:02 AM EDT Aron Land MD LAB BLOOD ORDERABLES Final Res ult Performing Organization Address [facility] de Phone Number LABORATORY [facility] [address] [place] [address] * (ABNORMAL) HEPATIC FUNCTION PANEL (01/03/2025 4:50 AM EDT) Albumin 3.8 3.8 - 5.0 g/dL 01/03/2025 5:47 AM EDT LABORATORY [facility] AST 36 10 - 50 U/L 01/03/2025 5:47 AM EDT LABORATORY [facility] Comment:Results may be false ly elevated due to hemolysis. Alkaline Phosphatase 504(H) 35 - 130 U/L 01/03/2025 5:47 AM EDT LABORATORY [facility] ALT 55(H) 10 - 50 U/L 01/03/2025 5:47 AM EDT LABORATORY [facility] Bilirubin, Total 0.7 <=1.2 mg/dL 01/03/2025 5:47 AM EDT LABORATORY [facility] Bilirubin, Direct 0.4(H) 0.0 - 0.3 mg/dL 01/03/2025 5:47 AM EDT LABORATORY [facility] Protein 7.0 6.0 - 8.3 g/dL 01/03/2025 5:47 AM EDT LABORATORY C Blood Venous blood specimen / Unknown Venipuncture / Unknown 01/03/2025 4:50 AM EDT 01/03/2025 5:02 AM EDT Aron Land MD LAB BLOOD ORDERABLES Final Res ult Performing Organization Address [facility] de Phone Number LABORATORY [facility] [address] [place] [address] * (ABNORMAL) PT INR (01/03/2025 4:50 AM EDT) Prothrombin Time 19.4(H) 11.6 - 15.2 seconds 01/03/2025 5:29 AM EDT LABORATORY [facility] INR 1.6(H) 0.8 - 1.2 01/03/2025 5:29 AM EDT LABORATORY [facility] Blood Venous blood specimen / Unknown Venipuncture / Unknown 01/03/2025 4:50 AM EDT 01/03/2025 5:02 AM EDT Narrative LABORATORY [facility] - 01/03/2025 5:29 AM EDT Warfarin Therapy INR: 2.0-3.0 conventional anticoagulation INR: 2.5-3.5 high intensity anticoagulation Aron Land MD LAB BLOOD ORDERABLES Final Res ult Performing Organization Address [facility] Co de Phone Number LABORATORY [facility] [address] [place] [address] * TYPE AND SCREEN (01/03/2025 4:50 AM EDT) ABO B 01/03/2025 5:44 AM EDT LABORATORY [facility] BLOOD BANK Rh Positive 01/03/2025 5:44 AM EDT LABORATORY [facility] BLOOD BANK Red Blood Cell Antibody Screen Negative 01/03/2025 5:44 AM EDT LABORATORY [facility] BLOOD BANK Specimen Expiration Date 01/06/2025 23:59 01/03/2025 5:44 AM EDT LABORATORY [facility] BLOOD BANK Blood Venous blood specimen / Unknown Venipuncture / Unknown 01/03/2025 4:50 AM EDT 01/03/2025 5:02 AM EDT Aron Land MD LAB BLOOD BANK TEST ORDERABLES Final Result LABORATORY [facility] BLOOD BANK [address] [place] [address] * (ABNORMAL) CBC (01/03/2025 4:50 AM EDT) WBC 18.38(H) 4.00 - 10.80 K/uL 01/03/2025 5:15 AM EDT LABORATORY GM RBC 4.78 4.50 - 5.25 M/uL 01/03/2025 5:15 AM EDT LABORATORY [facility] HGB 14.5 14.0 - 16.8 g/dL 01/03/2025 5:15 AM EDT LABORATORY [facility] HCT 45.5 40.0 - 48.4 % 01/03/2025 5:15 AM EDT LABORATORY [facility] MCV 95.2 82.0 - 99.5 fL 01/03/2025 5:15 AM EDT LABORATORY [facility] MCH 30.3 27.0 - 34.0 pg 01/03/2025 5:15 AM EDT LABORATORY [facility] MCHC 31.9 32.0 - 36.0 g/dL 01/03/2025 5:15 AM EDT LABORATORY [facility] RDW 13.4 11.5 - 15.5 % 01/03/2025 5:15 AM EDT LABORATORY [facility] PLT 635(H) 140 - 400 K/uL 01/03/2025 5:15 AM EDT LABORATORY [facility] MPV 10.2 6.6 - 11.1 fL 01/03/2025 5:15 AM EDT LABORATORY [facility] NRBCs 0 <=0 /100 WBCs 01/03/2025 5:15 AM EDT LABORATORY [facility] Blood Venous blood specimen / Unknown Venipuncture / Unknown 01/03/2025 4:50 AM EDT 01/03/2025 5:02 AM EDT us Anais Gregg MD LAB BLOOD ORDERABLES Final Resul t LABORATORY [facility] [address] [place] [address] * (ABNORMAL) BASIC METABOLIC PANEL (01/03/2025 4:50 AM EDT) BUN 47(H) 6 - 20 mg/dL 01/03/2025 5:47 AM EDT LABORATORY [facility] CREATININE 1.5(H) 0.6 - 1.2 mg/dL 01/03/2025 5:47 AM EDT LABORATORY [facility] EGFR 44(L) >=60 mL/min 01/03/2025 5:47 AM EDT LABORATORY [facility] Comment:eGFR is calculated b ased on the CKD-EPI 2020 equation. SODIUM 141 135 - 146 mmol/L 01/03/2025 5:47 AM EDT LABORATORY [facility] POTASSIUM 3.7 3.5 - 5.1 mmol/L 01/03/2025 5:47 AM EDT LABORATORY [facility] CHLORIDE 94(L) 98 - 107 mmol/L 01/03/2025 5:47 AM EDT LABORATORY [facility] CO2 27 22 - 32 mmol/L 01/03/2025 5:47 AM EDT LABORATORY [facility] ANION GAP 20(H) 7 - 15 mmol/L 01/03/2025 5:47 AM EDT LABORATORY [facility] GLUCOSE 133(H) 70 - 120 mg/dL 01/03/2025 5:47 AM EDT LABORATORY [facility] CALCIUM 9.2 8.4 - 10.2 mg/dL 01/03/2025 5:47 AM EDT LABORATORY [facility] Blood Venous blood specimen / Unknown Venipuncture / Unknown 01/03/2025 4:50 AM EDT 01/03/2025 5:02 AM EDT us Anais Gregg MD LAB BLOOD ORDERABLES Final Resul t LABORATORY [facility] [address] [place] [address] * CALCIUM, IONIZED, WHOLE BLOOD (01/03/2025 4:50 AM EDT) Calcium, Ionized 1.17 1.13 - 1.32 mmol/L 01/03/2025 5:05 AM EDT LABORATORY C Blood Venous blood specimen / Unknown Venipuncture / Unknown 01/03/2025 4:50 AM EDT 01/03/2025 5:02 AM EDT Aron Land MD LAB BLOOD ORDERABLES Final Res ult LABORATORY [facility] [address] [place] [address] * PHOSPHORUS (01/03/2025 4:50 AM EDT) Phosphorus 4.5 2.5 - 4.8 mg/dL 01/03/2025 5:47 AM EDT LABORATORY [facility] Blood Venous blood specimen / Unknown Venipuncture / Unknown 01/03/2025 4:50 AM EDT 01/03/2025 5:02 AM EDT Aron Land MD LAB BLOOD ORDERABLES Final Res ult Performing Organization Address City/[facility]/ZIP Co de Phone Number LABORATORY [facility] [address] [place] [address] * MAGNESIUM (01/03/2025 4:50 AM EDT) Magnesium 2.6 1.5 - 2.6 mg/dL 01/03/2025 5:47 AM EDT LABORATORY [facility] Blood Venous blood specimen / Unknown Venipuncture / Unknown 01/03/2025 4:50 AM EDT 01/03/2025 5:02 AM EDT Aron Land MD LAB BLOOD ORDERABLES Final Res ult LABORATORY [facility] [address] [place] [address] * XR ABDOMEN 1 VIEW (01/03/2025 4:47 AM EDT) Anatomical Region Laterality Modality Abdomen, Pelvis Computed Radiogr aphy 01/03/2025 5:19 AM EDT Impressions 01/03/2025 5:17 AM EDT IMPRESSION 1. Feeding tube in place with the tip and side port overlying the left upper quadrant of the abdomen assumed to be in the gastric lumen. The proximal side port is close to the gastroesophageal junction and advancement by approximately 5 cm is recommended. 2. Air density visualized in the liver may represent pneumobilia versus portal venous gas. Further evaluation with CT scan may be performed. The ORTEGA/CONCESSIONS MANAGER was instructed to inform the clinician that there are significant findings and that the report is available for review. Narrative 01/03/2025 5:17 AM EDT EXAM XR ABDOMEN 1 VIEW - 01/03/2025 4:47 am HISTORY Gastric Tube placement verification TECHNIQUE Single frontal view portable x-ray of the upper abdomen in semi upright position COMPARISON X-ray 10/13/2024. FINDINGS There are sternotomy wires visualized. There are mediastinal clips visualized. There is a feeding tube in place with the tip and side port overlying the left upper quadrant of the abdomen assumed to be in the gastric lumen. The proximal side port is close to the gastroesophageal junction. There are surgical clips in the right upper quadrant of the abdomen from previous procedure. There is also a biliary stent in the right upper quadrant of the abdomen. Air density visualized in the liver may represent pneumobilia versus portal venous gas. Procedure Note Luis Enrique Bragg MD - 01/03/2025 EXAM XR ABDOMEN 1 VIEW - 01/03/2025 4:47 am HISTORY Gastric Tube placement verification TECHNIQUE Single frontal view portable x-ray of the upper abdomen in semi uprightposition COMPARISON X-ray 10/13/2024. FINDINGS There are sternotomy wires visualized. There are mediastinal clipsvisualized. There is a feeding tube in place with the tip and side portoverlying the left upper quadrant of the abdomen assumed to be in thegastric lumen. The proximal side port is close to the gastroesophagealjunction. There are surgical clips in the right upper quadrant of theabdomen from previous procedure. There is also a biliary stent in theright upper quadrant of the abdomen. Air density visualized in the livermay represent pneumobilia versus portal venous gas. IMPRESSION IMPRESSION 1. Feeding tube in place with the tip and side port overlying the leftupper quadrant of the abdomen assumed to be in the gastric lumen. Theproximal side port is close to the gastroesophageal junction andadvancement by approximately 5 cm is recommended. 2. Air density visualized in the liver may represent pneumobilia versusportal venous gas. Further evaluation with CT scan may be performed. The ORTEGA/CONCESSIONS MANAGER was instructed to inform the clinician that there aresignificant findings and that the report is available for review. 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] Acquired hypertrophic pyloric stenosis Other esophagitis without bleeding [K20.80] Disease of stomach and duodenum, unspecified [K31.9] Palliative care encounter Encounter for palliative care Goals of care, counseling/discussion Other specified counseling Pancreatic mass Unspecified disease of pancreas Severe protein-energy malnutrition (HCC) Other severe protein-calorie malnutrition SBO (small bowel obstruction) (HCC) Unspecified intestinal obstruction Severe protein-energy malnutrition (HCC) Other severe protein-calorie malnutrition Coronary artery disease involving [place] coronary artery of [place] heart without angina pectoris History of [place] (myocardial infarction) Old myocardial infarction Chronic atrial fibrillation (HCC) Atrial fibrillation Chronic kidney disease with symptom management only, stage 3 (moderate) (HCC) HTN, goal below 140/90 Unspecified essential hypertension Dyslipidemia, goal LDL below 70 Other and unspecified hyperlipidemia Pancreatic mass Unspecified disease of pancreas Palliative care encounter Encounter for palliative care Goals of care, counseling/discussion Other specified counseling Generalized abdominal pain Abdominal pain, generalized Nausea Nausea alone Anorexia documented in this encounter Administered Medications Inactive Administered Medications - up to 3 most recent administrations Medication Order MAR Action Action Date Dose Rate Site Acetaminophen (Ofirmev) inj 1,000 mg 1,000 mg, Intravenous, Q6H, 4 doses, First dose on Fri01/03/25 at 0600, Last dose on Fri01/04/25 at 0000, Administer over 15 Minutes, Administer undiluted over 15 minutes! NOTE: Maximum of 4000 mg per 24 hours of acetaminophen from all acetaminophen containing products., Indication: Patient is strictly NPO New Bag 01/03/2025 6:05 PM EDT 1,000 mg 400 mL/hr Rate Verify 01/03/2025 2:19 PM EDT 400 mL/hr New Bag 01/03/2025 12:00 PM EDT 1,000 mg 400 mL/hr amLODIPine (Norvasc) tab 10 mg 10 mg, Oral, Daily(AM), First dose on Fri01/06/25 at 0900, Until Discontinued Given 01/07/2025 9:22 AM EDT 10 mg Given 01/06/2025 8:39 AM EDT 10 mg aspirin chew tab 81 mg 81 mg, Oral, Daily(AM), First dose on Fri01/06/25 at 0900, Until Discontinued Given 01/06/2025 8:40 AM EDT 81 mg carBAMazepine (TEGretol) oral susp 100 mg 100 mg, NG Tube, TID(AM/NOON/HS), First dose on Fri01/03/25 at 0600, Until Discontinued, Shake well ! Given 01/05/2025 5:55 AM EDT 100 mg Given 01/04/2025 9:52 PM EDT 100 mg Given 01/04/2025 12:45 PM EDT 100 mg carBAMazepine ER (Carbatrol) cap 300 mg 300 mg, Oral, QHS, First dose (after last reorder) on Fri01/05/25 at 2200, Until Discontinued, This med should NOT be Crushed or Chewed Given 01/06/2025 8:43 PM EDT 300 mg Given 01/05/2025 9:23 PM EDT 300 mg Carvedilol (Coreg) tab 6.25 mg 6.25 mg, Oral, BID (.AM/PM), First dose on Fri01/05/25 at 2100, Until Discontinued, Hold for HR less than 60 or SBP below 100 and notify service if dose is held MUST BE GIVEN WITH MEAL Given 01/07/2025 9:22 AM EDT 6.25 mg Given 01/06/2025 8:43 PM EDT 6.25 mg Given 01/06/2025 8:38 AM EDT 6.25 mg [id number] infusion Intravenous, at 75 mL/hr, CONTINUOUS, Starting on Fri01/04/25 at 0800, Until Fri01/05/25 at 1757 Rate Verify 01/05/2025 8:05 AM EDT 75 mL/hr Restarted 01/05/2025 5:54 AM EDT 75 mL/hr Rate Verify 01/05/2025 1:58 AM EDT 75 mL/hr Docusate Sodium (Colace) cap 100 mg 100 mg, Oral, BID (.AM/PM), First dose on Fri01/05/25 at 2100, Until Discontinued, For oral administration ONLY, if route of administration is other than oral and alternative product must be ordered. Given 01/06/2025 8:40 AM EDT 100 mg Given 01/05/2025 9:23 PM EDT 100 mg Famotidine (Pepcid) tab 20 mg 20 mg, Oral, Daily(AM), First dose on Fri01/06/25 at 0900, Until Discontinued Given 01/07/2025 9:22 AM EDT 20 mg Given 01/06/2025 8:40 AM EDT 20 mg glucagon (Glucagen) inj 1 mg 1 mg, Intravenous, ONCE, On Fri01/05/25 at 1615, For 1 dose, Intra-Op Given 01/05/2025 3:33 PM EDT 1 mg glucagon (Glucagen) inj 1 mg 1 mg, Intravenous, ONCE, On Fri01/05/25 at 1630, For 1 dose, Intra-Op Given 01/05/2025 3:57 PM EDT 1 mg hEParin inj 5,000 Units 5,000 Units, Subcutaneous, Q8H, First dose on Fri01/03/25 at 1515, Until Discontinued Given 01/06/2025 8:43 PM EDT 5,000 Units Abdomen Right Upper Given 01/06/2025 2:41 PM EDT 5,000 Units A bdomen Left Upper Given 01/06/2025 6:10 AM EDT 5,000 Units A bdomen Right Lower hydrALAZINE (Apresoline) inj 5 mg 5 mg, Intravenous, Q6H PRN Other, If SBP >180mmg. Hold if heart rate below 60, Starting on Nataliia 01/06/25 at 0036, Until Fri01/07/25 at 1517 HYDROmorphone (Dilaudid) inj 0.2 mg 0.2 mg, IV Push, Q4H PRN Pain, Moderate, Pain, Mild, Starting on Fri01/03/25 at 0440, Until Fri01/07/25 at 1517 HYDROmorphone (Dilaudid) inj 0.5 mg 0.5 mg, IV Push, Q4H PRN Pain, Severe, Starting on Fri01/03/25 at 0440, Until Fri01/07/25 at 1517 Given 01/05/2025 6:11 AM EDT 0.5 mg Iopamidol (Isovue 370) inj 60 mL 60 mL, Intravenous, ONCE, On Fri01/04/25 at 0115, For 1 dose, Radiology Medication Routing (Non-IR) Given 01/04/2025 1:15 AM EDT 60 mL Isolyte-S pH 7.4 infusion Intravenous, at 100 mL/hr, Plasma-LYTE 148, isolyte-S, and isolyte-S pH 7.4 are considered equivalent - including for MAR barcode scanning., CONTINUOUS, Starting on Fri01/03/25 at 0530, Until Fri01/04/25 at 0723 Rate Verify 01/04/2025 6:41 AM EDT 100 mL /hr New Bag 01/04/2025 12:45 AM EDT 100 mL/hr Restarted 01/03/2025 11:35 PM EDT 100 mL/hr Latanoprost (Xalatan) 0.005 % ophthalmic solution 1 Drop 1 Drop, Both eyes, HS, First dose on Fri01/03/25 at 2200, Until Discontinued Given 01/06/2025 8:42 PM EDT 1 Drop Given 01/05/2025 9:30 PM EDT 1 Drop Given 01/04/2025 9:50 PM EDT 1 Drop Lidocaine (Aspercreme) 4 % patch 1 Patch 1 Patch, Transdermal, ONCE, On Fri01/03/25 at 1830, For 1 dose, Apply patch for 12 hours then remove for 12 hours! Remove any Lidocaine patches the patient may currently be wearing prior to applying the new patch Patch Applied 01/03/2025 6:12 PM EDT 1 Patch Back Middle Lisinopril (Prinivil) tab 20 mg 20 mg, Oral, BID (AM/PM MEALS), First dose on Fri01/05/25 at 2230, Until Discontinued Given 01/07/2025 9:22 AM EDT 20 mg Given 01/06/2025 4:06 PM EDT 20 mg Given 01/06/2025 6:10 AM EDT 20 mg Metoprolol Tartrate (Lopressor) inj 2.5 mg 2.5 mg, IV Push, Q6H, First dose on Fri01/03/25 at 0600, Until Discontinued Given 01/05/2025 5:55 PM EDT 2.5 mg Given 01/05/2025 5:51 AM EDT 2.5 mg Given 01/05/2025 12:23 AM EDT 2.5 mg naloxone (Narcan) 0.4 MG/ML inj 0.4 mg 0.4 mg, IV Push, PRN Other, RR < 8, Starting on Fri01/03/25 at 0440, Until Fri01/07/25 at 1517 omeprazole (PriLOSEC) cap 40 mg 40 mg, Oral, Daily(AM), First dose on Fri01/06/25 at 0900, Until Discontinued Given 01/06/2025 8:40 AM EDT 40 mg ondansetron (Zofran) inj 4 mg 4 mg, IV Push, Q6H PRN Nausea, Vomiting, Starting on Fri01/03/25 at 1454, Until Fri01/07/25 at 1517 Given 01/06/2025 8:55 AM EDT 4 mg Pantoprazole (Protonix) inj 40 mg 40 mg, IV Push, Daily(AM), First dose on Fri01/03/25 at 0900, Until Discontinued, IV push instructions: Flush I.V. Line before and after administration. In-line filter not required. 2-minute infusion: The volume of reconstituted solution (4mg/ml) to be injected may be administered intravenously over at least 2 minutes. ( Dilute each vial with 10 ml of 0.9% saline PF) Given 01/05/2025 9:09 AM EDT 40 mg Given 01/04/2025 9:23 AM EDT 40 mg Given 01/03/2025 9:31 AM EDT 40 mg Polyethylene Glycol 3350 (Miralax) oral powder 17 g 17 g, Oral, Daily(AM), First dose on Fri01/06/25 at 0900, Until Discontinued, Mix in 8 oz of water, juice, soda, coffee, or tea. Given 01/06/2025 8:40 AM EDT 17 g potassium chloride 10 mEq in 100 mL ivpb LOCKED DOSE 10 mEq, Peripheral IV, Q1H, 2 doses, First dose on Fri01/03/25 at 1200, Last dose on Fri01/03/25 at 1300, Administer over 60 Minutes, Standard infusion duration is 60 minutes. New Bag 01/03/2025 2:06 PM EDT 10 mEq 100 mL/hr New Bag 01/03/2025 12:43 PM EDT 10 mEq 100 mL/hr potassium chloride 10 mEq in 100 mL ivpb LOCKED DOSE 10 mEq, Peripheral IV, Q1H, 5 doses, First dose on Fri01/06/25 at 1000, Last dose on Fri01/06/25 at 1400, Administer over 60 Minutes, Standard infusion duration is 60 minutes. Rate Change 01/06/2025 4:12 PM EDT 7.482 mEq/hr 74.82 mL/hr New Bag 01/06/2025 4:10 PM EDT 10 mEq 100 mL/hr Rate Change 01/06/2025 2:41 PM EDT 7.426 mEq/hr 74.26 mL/h r rosuvastatin (Crestor) tab 40 mg 40 mg, Oral, Q1700, First dose (after last reorder) on Fri01/05/25 at 1830, Until Discontinued Given 01/06/2025 4:06 PM EDT 40 mg Given 01/05/2025 6:18 PM EDT 40 mg sodium chloride 0.9 % flush peripheral sean 3 mL 3 mL, IV Push, Q8H, First dose on Fri01/03/25 at 0600, Until Discontinued, Do not flush if lock, PICC, or central line not in place; IV infusing or unable to flush. Given 01/07/2025 6:00 AM EDT 3 mL Given 01/06/2025 10:00 PM EDT 3 mL Given 01/05/2025 10:00 PM EDT 3 mL timolol (Timoptic) 0.5 % ophthalmic solution 1 Drop 1 Drop, Left eye, Daily(AM), First dose on Fri01/03/25 at 0900, Until Discontinued Given 01/06/2025 9:31 AM EDT 1 Zack p Given 01/05/2025 9:09 AM EDT 1 Drop Given 01/04/2025 8:09 AM EDT 1 Drop Trolamine Salicylate (Arthricream) cream Topical, PRN Other, Mild joint/muscle pain, Starting on Fri01/03/25 at 1813, Until Fri01/07/25 at 1517, Apply to affected area Given 01/05/2025 12:36 AM EDT Given 01/04/2025 12:45 PM EDT Given 01/04/2025 8:17 AM EDT documented in this encounter Active and Recently Administered Medications Times are shown in EDT. Scheduled Medication Order 01/05/2025 01/06/2025 01/07/2025 amLODIPine (Norvasc) tab 10 mg 10 mg, Oral, Daily(AM), First dose on Fri01/06/25 at 0900, Until Discontinued 0839 (Given - Provider: Suzy Ram RN) 0922 (Given - Provider: María Pride RN) aspirin chew tab 81 mg 81 mg, Oral, Daily(AM), First dose on Fri01/06/25 at 0900, Until Discontinued 0840 (Given - Provider: Suzy Ram RN) 0900 (Not Given - Provider: María Pride RN - Reason: Refused-Notify Provider) carBAMazepine (TEGretol) oral susp 100 mg (CANCELED) 100 mg, NG Tube, TID(AM/NOON/HS), First dose on Fri01/03/25 at 0600, Until Discontinued, Shake well ! 0555 (Given - Provider: Marimar Velásquez RN)1200 (OR/Procedure - Provider: Suzy Ram RN - Comment: Dr. Conway notified via tiger text that patient would not recieve noon dose) carBAMazepine ER (Carbatrol) cap 300 mg 300 mg, Oral, QHS, First dose (after last reorder) on Fri01/05/25 at 2200, Until Discontinued, This med should NOT be Crushed or Chewed 2123 (Given - Provider: Hedy Weber RN) 2042 (Given - Provider: Gisela Adam, RONY) Carvedilol (Coreg) tab 6.25 mg 6.25 mg, Oral, BID (.AM/PM), First dose on Fri01/05/25 at 2100, Until Discontinued, Hold for HR less than 60 or SBP below 100 and notify service if dose is held MUST BE GIVEN WITH MEAL 2121 (Given - Provider: Hedy Weber RN) 837 (Given - Provider: Suzy Ram, RONY)2042 (Given - Provider: Gisela Adam, RONY) 921 (Given - Provider: María Pride, RONY) ciprofloxacin (Cipro) in D5W ivpb 400 mg (COMPLETED) IV Piggyback, 400 mg, ONCE, 1 dose, On Fri01/05/25 at 1545, Administer over 60 Minutes, PROTECT FROM LIGHT, Intra-Op 1508 (Given - Provider: Liseth Lux CRNA)1537 (Given - Provider: Liseth Lux CRNA) Docusate Sodium (Colace) cap 100 mg 100 mg, Oral, BID (.AM/PM), First dose on Fri01/05/25 at 2100, Until Discontinued, For oral administration ONLY, if route of administration is other than oral and alternative product must be ordered. 2122 (Given - Provider: Hedy Weber RN) 0840 (Given - Provider: Suzy Ram RN)2100 (Not Given - Provider: Gisela Adam RN - Reason: Parameter(s) Not Met - Comment: pt with several loose stools) 0900 (Not Given - Provider: María Pride RN - Reason: Refused-Notify Provider) Famotidine (Pepcid) tab 20 mg 20 mg, Oral, Daily(AM), First dose on Fri01/06/25 at 0900, Until Discontinued 08 (Given - Provider: Suzy Ram RN) 921 (Given - Provider: María Pride, RONY) glucagon (Glucagen) inj 1 mg (COMPLETED) 1 mg, Intravenous, ONCE, On Fri01/05/25 at 1615, For 1 dose, Intra-Op 1533 (Given - Provider: Joy Palacios RN)1615 (OR/Procedure - Provider: Suzy Ram, RONY) glucagon (Glucagen) inj 1 mg (COMPLETED) 1 mg, Intravenous, ONCE, On Fri01/05/25 at 1630, For 1 dose, Intra-Op 1557 (Given - Provider: Joy Palacios RN - Comment: 0.5 mg given)1630 (OR/Procedure - Provider: Suzy Ram, RONY) hEParin inj 5,000 Units 5,000 Units, Subcutaneous, Q8H, First dose on Fri01/03/25 at 1515, Until Discontinued 0554 (Given - Provider: Marimar Velásquez RN)1755 (Given - Provider: Suzy Ram, RONY)2123 (Not Given - Provider: Hedy Weber RN - Reason: Refused-Notify Provider) 0610 (Given - Provider: Hedy Weber RN)1441 (Given - Provider: Suzy Ram, RONY)2043 (Given - Provider: Gisela Adam RN) 0600 (Not Given - Provider: Gisela Adam RN - Reason: Refused-Notify Provider)1400 (Not Given - Provider: María Pride RN - Reason: Order Clarified - Comment: pt discharged) Latanoprost (Xalatan) 0.005 % ophthalmic solution 1 Drop 1 Drop, Both eyes, HS, First dose on Fri01/03/25 at 2200, Until Discontinued 2130 (Given - Provider: Hedy Weber RN) 204 (Given - Provider: Gisela Adam RN) Lisinopril (Prinivil) tab 20 mg 20 mg, Oral, BID (AM/PM MEALS), First dose on Fri01/05/25 at 2230, Until Discontinued 221 (Given - Provider: Hedy Weber RN) 0610 (Given - Provider: Hedy Weber RN)1606 (Given - Provider: Suzy Ram RN) 0922 (Given - Provider: María Pride, RONY) Metoprolol Tartrate (Lopressor) inj 2.5 mg (CANCELED) 2.5 mg, IV Push, Q6H, First dose on Fri01/03/25 at 0600, Until Discontinued 0023 (Given - Provider: Marimar Velásquez RN - Comment: bp: 181/73hr: 89)0551 (Given - Provider: Marimar Velásquez RN - Comment: bp 176/81 hr 86)1200 (OR/Procedure - Provider: Suzy Ram RN)1755 (Given - Provider: Suzy Ram RN) omeprazole (PriLOSEC) cap 40 mg 40 mg, Oral, Daily(AM), First dose on Fri01/06/25 at 0900, Until Discontinued 0840 (Given - Provider: Suzy Ram RN) 0900 (Not Given - Provider: María Pride RN - Reason: Refused-Notify Provider) Pantoprazole (Protonix) inj 40 mg (CANCELED) 40 mg, IV Push, Daily(AM), First dose on Fri01/03/25 at 0900, Until Discontinued, IV push instructions: Flush I.V. Line before and after administration. In-line filter not required. 2-minute infusion: The volume of reconstituted solution (4mg/ml) to be injected may be administered intravenously over at least 2 minutes. ( Dilute each vial with 10 ml of 0.9% saline PF) 0909 (Given - Provider: Suzy Ram RN) Polyethylene Glycol 3350 (Miralax) oral powder 17 g 17 g, Oral, Daily(AM), First dose on Fri01/06/25 at 0900, Until Discontinued, Mix in 8 oz of water, juice, soda, coffee, or tea. 0840 (Given - Provider: Suzy Ram RN) 0900 (Not Given - Provider: María Pride RN - Reason: Refused-Notify Provider) potassium chloride 10 mEq in 100 mL ivpb LOCKED DOSE (COMPLETED) 10 mEq, Peripheral IV, Q1H, 5 doses, First dose on Fri01/06/25 at 1000, Last dose on Fri01/06/25 at 1400, Administer over 60 Minutes, Standard infusion duration is 60 minutes. 0947 (New Bag - Provider: Suzy Ram RN)1006 (Paused - Provider: Suzy Ram RN)1007 (Rate Change - Provider: Suzy Ram RN)1100 (Stopped - Provider: Suzy Ram RN)1111 (New Bag - Provider: Suzy Ram RN)1111 (Paused - Provider: Suzy Ram RN)1111 (Rate Change - Provider: Suzy Ram RN)1231 (Stopped - Provider: Suzy Ram RN)1258 (New Bag - Provider: Suzy Ram RN)1258 (Paused - Provider: Suzy Ram RN)1258 (Rate Change - Provider: Suzy Ram RN)1418 (Stopped - Provider: Suzy Ram RN)1441 (New Bag - Provider: Suzy Ram RN)1441 (Paused - Provider: Suzy Ram RN)1441 (Rate Change - Provider: Suzy Ram RN)1601 (Stopped - Provider: Suzy Ram RN)1610 (New Bag - Provider: Suzy Ram RN)1611 (Paused - Provider: Suzy Ram RN)1612 (Rate Change - Provider: Suzy Ram RN)1732 (Stopped - Provider: Suzy Ram RN) rosuvastatin (Crestor) tab 40 mg 40 mg, Oral, Q1700, First dose (after last reorder) on Fri01/05/25 at 1830, Until Discontinued 1818 (Given - Provider: Suzy Ram RN) 1606 (Given - Provider: Suzy Ram RN) sodium chloride 0.9 % flush peripheral sean 3 mL 3 mL, IV Push, Q8H, First dose on Fri01/03/25 at 0600, Until Discontinued, Do not flush if lock, PICC, or central line not in place; IV infusing or unable to flush. 0600 (Not Given - Provider: Marimar Velásquez RN - Reason: Parameter(s) Not Met - Comment: fluids infusing)1400 (OR/Procedure - Provider: Suzy Ram RN)2200 (Given - Provider: Hedy Weber RN) 0600 (Not Given - Provider: Hedy Weber RN - Reason: Parameter(s) Not Met)1400 (Not Given - Provider: Suzy Ram RN - Reason: Parameter(s) Not Met - Comment: IV KCL infusing)2200 (Given - Provider: Gisela Adam RN) 0600 (Given - Provider: Gisela Adam RN)1400 (Not Given - Provider: María Pride RN - Reason: Other- Please add reason in Comments - Comment: dc) timolol (Timoptic) 0.5 % ophthalmic solution 1 Drop 1 Drop, Left eye, Daily(AM), First dose on Fri01/03/25 at 0900, Until Discontinued 09 (Given - Provider: Suzy Ram RN) 0931 (Given - Provider: Suzy Ram RN) 0900 (Not Given - Provider: María Pride RN - Reason: Refused-Notify Provider) Continuous Medication Order 01/05/2025 01/06/2025 01/07/2025 D5NSS infusion (CANCELED) Intravenous, at 75 mL/hr, CONTINUOUS, Starting on Fri01/04/25 at 0800, Until Fri01/05/25 at 1757 0027 (Paused - Provider: Marimar Velásquez RN)0030 (Restarted - Provider: Marimar Velásquez RN)0131 (Paused - Provider: Marimar Velásquez RN)0135 (Restarted - Provider: Marimar Velásquez RN)0158 (Rate Verify - Provider: Marimar Velásquez RN)0552 (Paused - Provider: Marimar Velásquez RN)0554 (Restarted - Provider: Marimar Velásquez RN)0805 (Rate Verify - Provider: Marimar Velásquez RN)1055 (Stopped - Provider: Suzy Ram RN)1757 (Stopped - Provider: Suzy Ram RN) Isolyte-S pH 7.4 infusion (CANCELED) Intravenous, at 25 mL/hr, for Inpatient patient Plasma-LYTE 148, isolyte-S, and isolyte-S pH 7.4 are considered equivalent - including for MAR barcode scanning., CONTINUOUS, Starting on Fri01/05/25 at 1215, Until Fri01/05/25 at 1757, Pre-Op 1448 (New Bag - Provider: Liseth Lux CRNA)1621 (Anes Intra-Op Fluid - Provider: Liseth Lux CRNA)1757 (Stopped - Provider: Suzy Ram, RONY) PRN Medication Order 01/05/2025 01/06/2025 01/07/2025 hydrALAZINE (Apresoline) inj 5 mg 5 mg, Intravenous, Q6H PRN Other, If SBP >180mmg. Hold if heart rate below 60, Starting on Nataliia 01/06/25 at 0036, Until Fri01/07/25 at 1517 HYDROmorphone (Dilaudid) inj 0.2 mg 0.2 mg, IV Push, Q4H PRN Pain, Moderate, Pain, Mild, Starting on 01/03/25 at 0440, Until Fri01/07/25 at 1517 HYDROmorphone (Dilaudid) inj 0.5 mg 0.5 mg, IV Push, Q4H PRN Pain, Severe, Starting on 01/03/25 at 0440, Until Fri01/07/25 at 1517 0611 (Given - Provider: Marimar Velásquez, RONY) naloxone (Narcan) 0.4 MG/ML inj 0.4 mg 0.4 mg, IV Push, PRN Other, RR < 8, Starting on Fri01/03/25 at 0440, Until Fri01/07/25 at 1517 ondansetron (Zofran) inj 4 mg 4 mg, IV Push, Q6H PRN Nausea, Vomiting, Starting on Fri01/03/25 at 1454, Until Fri01/07/25 at 1517 0855 (Given - Provider: Suzy Ram, RONY) Trolamine Salicylate (Arthricream) cream Topical, PRN Other, Mild joint/muscle pain, Starting on Fri01/03/25 at 1813, Until Fri01/07/25 at 1517, Apply to affected area 0036 (Given - Provider: Marimar Velásquez RN) documented in this encounter Advance Directives Documents on File Type Date Recorded Patient Drawer In Dobby Loom Expl anation Advance Directives and Living Will [...] Care Agent (per Health Care Power of Manager Engine document) @[employer] Care Teams Forest Fire Specialist Supervisor Relationship Specialty Start Date End Date Bubba Espinoza DO [address] [place] [address] PCP - General Family Medicine 02/16/17 documented as of this encounter
--- OUTSIDE RECORDS SUMMARY | 2025-01-16 12:15 | External Medical Summary ---
Author Name Unknown Address Unknown Organization [id number]:[facility] - [address] [place] [address] Laboratory Report Ordering Provider Test Date Status COLBY DURÁN 01/03/2025 04:50:00 Final Observation Date Value Abnormality Reference (Units ) Status Magnesium 01/03/2025 04:50:00 2.6 1.5-2.6 (m g/dL) Final Performing Location [facility] - [address] [place] [address]
--- OUTSIDE RECORDS SUMMARY | 2025-01-16 12:15 | External Medical Summary ---
Author Name Unknown Address Unknown Organization [id number]:[facility] - [address] [place] [address] Laboratory Report Ordering Provider Test Date Status COLBY DURÁN 01/03/2025 04:50:00 Final Observation Date Value Abnormality Reference (Units ) Status Cancer Ag 19-9 01/03/2025 04:50:00 295.9 Above high norm al <35.0 (U/mL) Final Performing Location [facility] - [address] [place] [address]
--- OUTSIDE RECORDS SUMMARY | 2025-01-16 12:15 | External Medical Summary ---
Author Name Unknown Address Unknown Organization [id number]:LAB[facility]ATORY [facility] [place] - [address] [place] [address] Laboratory Report Ordering Provider Test Date Status COLBY DURÁN 01/03/2025 04:50:00 Final Warfarin Therapy
INR: 2 .0-3.0 conventional anticoagulation
INR: 2.5- 3.5 high intensity anticoagulation Observation Date Value Abnormality Reference (Units ) Status PT 01/03/2025 04:50:00 19.4 Above high normal 11 .6-15.2 (seconds) Final INR 01/03/2025 04:50:00 1.6 Above high normal 0. 8-1.2 Final Performing Location LABORATORY [facility] [place] - [address] [place] [address]
--- OUTSIDE RECORDS SUMMARY | 2025-01-16 12:15 | External Medical Summary ---
Author Name Unknown Address Unknown Organization [id number]:[facility] - [address] [place] [address] Laboratory Report Ordering Provider Test Date Status COLBY DURÁN 01/03/2025 04:50:00 Final Observation Date Value Abnormality Reference (Units ) Status Phosphate 01/03/2025 04:50:00 4.5 2.5-4.8 (m g/dL) Final Performing Location [facility] - [address] [place] [address]
--- OUTSIDE RECORDS SUMMARY | 2025-01-16 12:15 | External Medical Summary ---
Author Name Unknown Address Unknown Organization [id number]:LABORATORY [facility] [place] - [facility] [address] [place] [address] Laboratory Report Ordering Provider Test Date Status VA SANCHEZ 01/03/2025 14:37:00 Final Observation Date Value Abnormality Reference (Units ) Status BUN 01/03/2025 14:37:00 40 Above high normal 6-20 (mg/dL) Final Creatinine 01/03/2025 14:37:00 1.3 Above high normal 0.6-1.2 (mg/dL) Final Glomerular filtration rate/1.73 sq M.predicted [Volume Rate/Area] in Serum, Plasma or Blood by Creatinine-based formula (CKD-EPI) 01/03/2025 14:37:00 55 Below low normal >=60 (mL/min) Final eGFR is calculated based on the CKD-EPI 2020 equation. Sodium 01/03/2025 14:37:00 141 135-146 (m mol/L) Final Potassium 01/03/2025 14:37:00 4.1 3.5-5.1 (m mol/L) Final Cl 01/03/2025 14:37:00 99 98-107 (mm ol/L) Final CO2 01/03/2025 14:37:00 29 22-32 (mmo l/L) Final Anion gap 01/03/2025 14:37:00 13 7-15 (mmol /L) Final Glucose 01/03/2025 14:37:00 128 Above high normal 70 -120 (mg/dL) Final Calcium 01/03/2025 14:37:00 8.8 8.4-10.2 ( mg/dL) Final Albumin 01/03/2025 14:37:00 3.4 Below low normal 3.8 -5.0 (g/dL) Final Phosphate 01/03/2025 14:37:00 2.6 2.5-4.8 (m g/dL) Final Performing Location [facility] - [address] [place] [address]
--- OUTSIDE RECORDS SUMMARY | 2025-01-16 12:15 | External Medical Summary ---
Author Name Unknown Address Unknown Organization [id number]:LABORATORY [facility] [place] - [facility] [place][note 2] [address] [facility] [address] Laboratory Report Ordering Provider Test Date Status COLBY DURÁN 01/03/2025 04:50:00 Final Observation Date Value Abnormality Reference (Units ) Status WBC, Total 01/03/2025 04:50:00 18.38 Above high normal 4.00-10.80 (K/uL) Final RBC 01/03/2025 04:50:00 4.78 4.50-5.25 (M/uL) Final Hemoglobin 01/03/2025 04:50:00 14.5 14.0-16.8 (g/dL) Final HCT 01/03/2025 04:50:00 45.5 40.0-48.4 (%) Final MCV 01/03/2025 04:50:00 95.2 82.0-99.5 (fL) Final MCH 01/03/2025 04:50:00 30.3 27.0-34.0 (pg) Final MCHC 01/03/2025 04:50:00 31.9 32.0-36.0 (g/dL) Final RDW 01/03/2025 04:50:00 13.4 11.5-15.5 (%) Final Platelets 01/03/2025 04:50:00 635 Above high normal 140-400 (K/uL) Final MPV 01/03/2025 04:50:00 10.2 6.6-11.1 (fL) Final Nucleated erythrocytes/100 leukocytes [Ratio] in Blood by Automated count 01/03/2025 04:50:00 0 <=0 (/100 WBCs) Final Performing Location LABORATORY [facility] [place] - [address] [place] [address]
--- OUTSIDE RECORDS SUMMARY | 2025-01-16 12:15 | External Medical Summary ---
Author Name Unknown Address Unknown Organization K01:LABORATORY [place] [address] [facility] [address] Laboratory Report Ordering Provider Test Date Status COLBY DURÁN 01/03/2025 04:50:00 Final Observation Date Value Abnormality Reference (Units ) Status BUN 01/03/2025 04:50:00 47 Above high normal 6-20 (mg/dL) Final Creatinine 01/03/2025 04:50:00 1.5 Above high normal 0.6-1.2 (mg/dL) Final Glomerular filtration rate/1.73 sq M.predicted [Volume Rate/Area] in Serum, Plasma or Blood by Creatinine-based formula (CKD-EPI) 01/03/2025 04:50:00 44 Below low normal >=60 (mL/min) Final eGFR is calculated based on the CKD-EPI 2020 equation. Sodium 01/03/2025 04:50:00 141 135-146 (m mol/L) Final Potassium 01/03/2025 04:50:00 3.7 3.5-5.1 (m mol/L) Final Cl 01/03/2025 04:50:00 94 Below low normal 98- 107 (mmol/L) Final CO2 01/03/2025 04:50:00 27 22-32 (mmo l/L) Final Anion gap 01/03/2025 04:50:00 20 Above high normal 7- 15 (mmol/L) Final Glucose 01/03/2025 04:50:00 133 Above high normal 70 -120 (mg/dL) Final Calcium 01/03/2025 04:50:00 9.2 8.4-10.2 ( mg/dL) Final Performing Location LABORATORY [facility] [place] - [address] [facility] [address]
--- OUTSIDE RECORDS SUMMARY | 2025-01-16 12:15 | External Medical Summary ---
Author Name Unknown Address Unknown Organization K01:[facility] - [address] [place] [address] Laboratory Report Ordering Provider Test Date Status KOFIKELLY ROLLECOLBY 01/03/2025 04:50:00 Final Observation Date Value Abnormality Reference (Units ) Status ABO 01/03/2025 04:50:00 B Final RH 01/03/2025 04:50:00 Positive Final RED BLOOD CELL ANTIBODY SCREEN 01/03/2025 04:50:00 Negative Final SPECIMEN EXPIRATION DATE 01/03/2025 04:50:00 01/06/2025 23:59 Final Performing Location [facility] - [address] [place] [address]
--- OUTSIDE RECORDS SUMMARY | 2025-01-16 12:15 | External Medical Summary | Summary of Care ---
Author Name Unknown Organization [facility] Address [address] [place] [address] Phone [phone] Care Team Providers Care Hydroelectric Component Machinist Name Role Phone Luis Espinoza DO Primary Care Provider [phone] Reason for Referral * Evaluate & Treat - Unlimited Visits (Within 10 days (routine)) - Authorized Specialty Diagnoses / Procedures Referred By Gayathri rios Referred To Contact Hematology/Oncology / Hematology Oncology Diagnoses Malignant neoplasm of head of pancreas (HCC) Sylvia Horta DO [address] [place] [address] Phone: tel: fax: Referral ID Status Reason Start Date Expiration Date Visits Requested Visits Authorized [id number] Authorized Specialty Services Required 12/31/2024 999 999 [...] (HCC) Sylvia Horta DO [address] [place] [address] Phone: tel: fax: Referral ID Status Reason Start Date Expiration Date Visits Requested Visits Authorized [id number] Authorized Specialty Services Required 12/31/2024 999 999 [...] Horta DO [address] [place] [address] Test Results Allergies Active Allergy Reactions Criticality [...] 10 MG Oral Tablet (Norvasc)Indicat ions:History of [place] (myocardial infarction) TAKE 1 TABLET BY MOUTH [...] protocol Chronic atrial fibrillation 02/28/2020 History of NC (myocardial infarction) 05/23/2017 History of nonmelanoma skin cancer 04/22/2017 Overview (04/22/2017): 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 cheek - 2015 Hx of BCC on left cheek - 2014 Coronary artery disease invo lving [place] coronary artery of [place] heart without angina pectoris 11/19/2016 History of basal cell carcinoma of skin 05/24/20 15 documented as of this encounter (statuses as of 01/03/2025) Resolved Problems Problem Noted Date Diagnosed Date Resolved Date Prediabetes 12/09/2017 06/02/2018 Overview: Per Prediabetes protocol #1 Chronic atrial fibrillation 11/25/2017 12/01/2018 History of NC (myocardial infarction) 05/23/2017 05/23/2017 Paroxysmal atrial fibrillation 05/24/2015 10/04/2021 Bipolar disorder, in full re mission, most recent episode depressed 05/24/2015 02/12/2023 Atrial fibrillation and flutter 05/24/2015 S/P CABG (coronary artery bypass graft) 05/23/2017 NC (myocardial infarction) 0 05/23/2017 Overview (05/24/2015): 3 [...] 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 * Telephone Encounter - Sylvia Horta DO - 01/03/2025 12:05 PM EDT I believe the patient will need to see Medical Oncology as well. Can we help attain an appointment with them * Telephone Encounter - Kristine Whittington RN - 12/31/2024 3:33 PM EDT Called and spoke with pt's . Scheduled for 01/07/25 in [facility]. She is upset because pt is symptomatic, however Dr. Campa is in the OR until 01/06/25 which I did offer, however she chose to go to [facility]. Pt has not yet had staging CT [...] and fibromuscular tissue with few glands with bynw-we-baykpdtu atypia, and abundant eosinophils with few neutrophils, [...] Office Visit General Surgery Silvano Reeves [address] [place] [address] Robert Campa MD [address] [place] [address] 03/10/2025 8:20 AM EDT Office Visit Dermatology [facility] [address] [place] [address] Kandi Rubalcava PA-C [address] [place] [address] 03/25/2025 10:20 AM EDT Office Visit [facility] [address] [place] [address] Luis Espinoza, DO [address] [place] [address] 04/06/2025 3:30 PM EDT Office Visit Cardiology, [facility] [address] [place] [address] Florida Martinez IV, MD [address] [place] [address] 06/29/2025 2:00 PM EDT Office Visit Nephrology, [facility] [address] [place] [address] Aravind De La O MD [address] [place] [address] 08/15/2025 9:20 AM EST Office Visit [facility] [address] [place] [address] Luis Espinoza, DO [address] [place] [address] 10/24/2025 11:00 AM EST Office Visit Cardiology, [facility] [address] [place] [address] Heidi Hitchcock PA-C [address] [place] [address] Scheduled Orders Name Type Priority Associated Diagnoses [...] Additional history exists CKD HGB USE SMARTSET 58332 01/03/202601/03, 12/29/2024, 12/29/2024, Additional history exists CKD PHOS USE SMARTSET 32739 01/03/20260 12/2024, 01/03/2025, 11/26/2024, Additional history exists [...] this encounter Medical Devices Implanted Type Area Protective Signal Installer Helper Device Identifier Shelf Expiration Date Model / Serial / Lot Clip Quick 2.8mm 230cm - [id number] Implanted:Qty: 1 on 08/19/2022 by Jojo Pearson MD at ENDOSCOPY [facility] [employer] 12/29/2024 HX-UR.A / / 25K Clip Quick 2.8mm 230cm - [id number] Implanted:Qty: 1 on 08/19/2022 by Jojo Pearson MD at ENDOSCOPY [facility] [employer] 12/29/2024-UR.A / / 25K Clip Quick 2.8mm 230cm - [id number] Implanted:Qty: 1 on 08/19/2022 by Jojo Pearson MD at ENDOSCOPY [facility] [employer] 12/29/2024 HX-UR.A / / 25K Clip Quick 2.8mm 230cm - [id number] Implanted:Qty: 1 on 08/19/2022 by Jojo Pearson MD at ENDOSCOPY [facility] [employer] 12/29/2024-UR.A / / 25K Clip Quick 2.8mm 230cm - [id number] Implanted:Qty: 1 on 08/19/2022 by Jojo Pearson MD at ENDOSCOPY [facility] [employer] 12/29/2024 HX-UR.A / / 25K Clip Quick 2.8mm 230cm - [id number] Implanted:Qty: 1 on 08/19/2022 by Jojo Pearson MD at ENDOSCOPY [facility] [employer] 12/29/2024 HX-UR.A / / 25K documented as of this encounter Visit Diagnoses Diagnosis Malignant neoplasm of head of pancreas (HCC)- Primary Malignant neoplasm of head of pancreas documented in this encounter Advance Directives Documents on File Type Date Recorded Patient Tableau Developer Expl anation Advance Directives and Living Will [...] Care Agent (per Health Care Power of Sleep Scientist document) [email or web address] Care Teams Hydroelectric Component Machinist Relationship Specialty Start Date End Date Luis Espinoza DO [address] [place] [address] PCP - General Family Medicine 02/16/17 documented as of this encounter
--- OUTSIDE RECORDS SUMMARY | 2025-01-16 12:15 | External Medical Summary ---
Author Name Unknown Address Unknown Organization [id number]:[facility] [place] [address] [place] [address] Laboratory Report Ordering Provider Test Date Status COLBY DURÁN 01/03/2025 04:50:00 Final Observation Date Value Abnormality Reference (Units ) Status Calcium.ionized [Moles/volume] in Blood by Ion-selective membrane electrode (ISE) 01/03/2025 04:50:00 1.17 1.13-1.32 (mmol/L) Final Performing Location [facility] [place] [address] [place] [address]
--- OUTSIDE RECORDS SUMMARY | 2025-01-16 12:15 | External Medical Summary ---
Author Name Unknown Address Unknown Organization [id number]:[facility]ORY [facility] - [address] [place] [address] Laboratory Report Ordering Provider Test Date Status COLBY DURÁN 01/03/2025 04:50:00 Final Observation Date Value Abnormality Reference (Units ) Status ABO 01/03/2025 04:50:00 B Final RH 01/03/2025 04:50:00 Positive Final Performing Location [facility] - [address] [place] [address]
--- OUTSIDE RECORDS SUMMARY | 2025-01-16 12:15 | External Medical Summary ---
Author Name Unknown Address Unknown Organization [id number]:[facility] [place] [facility] [address] [place] [address] Laboratory Report Ordering Provider Test Date Status COLBY DURÁN 01/03/2025 04:50:00 Final Observation Date Value Abnormality Reference (Units ) Status Albumin 01/03/2025 04:50:00 3.8 3.8-5.0 (g/dL) Final AST (Aspartate aminotransferase) 01/03/2025 04:50:00 36 10-50 (U/L) Final Results may be falsely eleva jonna due to hemolysis. Alk Phos 01/03/2025 04:50:00 504 Above high normal 35 -130 (U/L) Final ALT (Alanine aminotransferase) 01/03/2025 04:50:00 55 Above high normal 10-50 (U/L) Final Bilirubin, Total 01/03/2025 04:50:00 0.7 <=1 .2 (mg/dL) Final Bilirubin, Direct 01/03/2025 04:50:00 0.4 Above high n ormal 0.0-0.3 (mg/dL) Final Protein 01/03/2025 04:50:00 7.0 6.0-8.3 (g /dL) Final Performing Location [facility] [place] [address] [facility] [address]
--- OUTSIDE RECORDS SUMMARY | 2025-01-16 12:15 | External Medical Summary | Summary of Care ---
Author Name Unknown Organization [facility] Address [address] [place] [address] Phone [phone] Care Team Providers Care Stage Electrician Helper Name Role Phone Luis Espinoza DO Primary Care Provider [phone] Reason for Referral * Evaluate & Treat - Unlimited Visits (Within 10 days (routine)) - Authorized Specialty Diagnoses / Procedures Referred By Gayathri rios Referred To Contact Hematology/Oncology / Hematology Oncology Diagnoses Malignant neoplasm of head of pancreas (HCC) Sylvia Horta DO [address] [place] [address] Phone: tel: fax: Referral ID Status Reason Start Date Expiration Date Visits Requested Visits Authorized [id number] Authorized Specialty Services Required 12/31/2024 999 999 [...] (HCC) Sylvia Horta DO [address] [place] [address] Phone: tel: fax: Referral ID Status Reason Start Date Expiration Date Visits Requested Visits Authorized [id number] Authorized Specialty Services Required 12/31/2024 999 999 [...] Horta DO [address] [place] [address] Test Results Allergies Active Allergy Reactions Criticality [...] 10 MG Oral Tablet (Norvasc)Indicat ions:History of CT (myocardial infarction) TAKE 1 TABLET BY MOUTH [...] protocol Chronic atrial fibrillation 02/28/[address] (myocardial infarction) 05/23/2017 History of nonmelanoma skin cancer 04/22/2017 Overview (04/22/2017): 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 cheek - 2015 Hx of BCC on left cheek - 2014 Coronary artery disease invo lving [place] coronary artery of [place] heart without angina pectoris 11/19/2016 History of basal cell carcinoma of skin 05/24/20 15 documented as of this encounter (statuses as of 01/03/2025) Resolved Problems Problem Noted Date Diagnosed Date Resolved Date Prediabetes 12/09/2017 06/02/2018 Overview: Per Prediabetes protocol #1 Chronic atrial fibrillation 11/25/2017 12/01/[address] (myocardial infarction) 05/23/2017 05/23/2017 Paroxysmal atrial fibrillation 05/24/2015 10/04/2021 Bipolar disorder, in full re mission, most recent episode depressed 05/24/2015 02/12/2023 Atrial fibrillation and flutter 05/24/2015 S/P CABG (coronary artery bypass graft) 05/23/2017 CT (myocardial infarction) 0 05/23/2017 Overview (05/24/2015): 3 [...] 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 * Telephone Encounter - Sylvia Horta DO - 01/03/2025 12:05 PM EDT I believe the patient will need to see Medical Oncology as well. Can we help attain an appointment with them * Telephone Encounter - Kristine Whittington RN - 12/31/2024 3:33 PM EDT Called and spoke with pt's . Scheduled for 01/07/25 in [facility]. She is upset because pt is symptomatic, however Dr. Campa is in the OR until 01/06/25 which I did offer, however she chose to go to [facility]. Pt has not yet had [...] and fibromuscular tissue with few glands with osis-oe-oaxiqqhm atypia, and abundant eosinophils with few neutrophils, [...] [address] [place] [address] Robert Campa MD [address] [place] [address] 03/10/2025 8:20 AM EDT Office Visit Dermatology [facility] [address] [place] [address] Kandi Rubalcava PA-C [address] [place] [address] 03/25/2025 10:20 AM EDT Office Visit [facility] [address] [place] [address] Luis Espinoza, DO [address] [place] [address] 04/06/2025 3:30 PM EDT Office Visit Cardiology, [facility] [address] [place] [address] Florida Martinez IV, MD [address] [place] [address] 06/29/2025 2:00 PM EDT Office Visit Nephrology, [facility] [address] [place] [address] Aravind De La O MD [address] [place] [address] 08/15/2025 9:20 AM EST Office Visit [facility] [address] [place] [address] Luis Espinoza, DO [address] [place] [address] 10/24/2025 11:00 AM EST Office Visit Cardiology, [facility] [address] [place] [address] Hiedi Hitchcock PA-C [address] [place] [address] Scheduled Orders Name Type Priority Associated Diagnoses [...] Additional history exists CKD HGB USE SMARTSET 26861 01/03/202601/03, 12/29/2024, 12/29/2024, Additional history exists CKD PHOS USE SMARTSET 22407 01/03/20260 12/2024, 01/03/2025, 11/26/2024, Additional history exists [...] this encounter Medical Devices Implanted Type Area Hand Deicer Element Winder Device Identifier Shelf Expiration Date Model / Serial / Lot Clip Quick 2.8mm 230cm - [id number] Implanted:Qty: 1 on 08/19/2022 by Jojo Pearson MD at ENDOSCOPY [facility] [employer] 12/29/2024 HX-UR.A / / 25K Clip Quick 2.8mm 230cm - [id number] Implanted:Qty: 1 on 08/19/2022 by Jojo Pearson MD at ENDOSCOPY [facility] [employer] 12/29/2024-UR.A / / 25K Clip Quick 2.8mm 230cm - [id number] Implanted:Qty: 1 on 08/19/2022 by Jojo Pearson MD at ENDOSCOPY [facility] [employer] 12/29/2024 HX-UR.A / / 25K Clip Quick 2.8mm 230cm - [id number] Implanted:Qty: 1 on 08/19/2022 by Jojo Pearson MD at ENDOSCOPY [facility] [employer] 12/29/2024-UR.A / / 25K Clip Quick 2.8mm 230cm - [id number] Implanted:Qty: 1 on 08/19/2022 by Jojo Pearson MD at ENDOSCOPY [facility] [employer] 12/29/2024 HX-UR.A / / 25K Clip Quick 2.8mm 230cm - [id number] Implanted:Qty: 1 on 08/19/2022 by Jojo Pearson MD at ENDOSCOPY [facility] [employer] 12/29/2024 HX-UR.A / / 25K documented as of this encounter Visit Diagnoses Diagnosis Malignant neoplasm of head of pancreas (HCC)- Primary Malignant neoplasm of head of pancreas documented in this encounter Advance Directives Documents on File Type Date Recorded Patient Pest Control Technician Expl anation Advance Directives and Living [...] Care Agent (per Health Care Power of Yeast Culture Developer document) [email or web address] Care Teams Stage Electrician Helper Relationship Specialty Start Date End Date Luis Espinoza DO [address] [place] [address] PCP - General Family Medicine 02/16/17 documented as of this encounter
--- OUTSIDE RECORDS SUMMARY | 2025-01-16 12:15 | External Medical Summary | Summary of Care ---
Author Name Unknown Organization [facility] Address [address] [place] [address] Phone [phone] Care Team Providers Care Portrait Artist Name Role Phone Luis Espinoza DO Primary Care Provider [phone] Reason for Referral * Evaluate & Treat - Unlimited Visits (Within 10 days (routine)) - Authorized Specialty Diagnoses / Procedures Referred By aGyathri rios Referred To Contact Hematology/Oncology / Hematology Oncology Diagnoses Malignant neoplasm of head of pancreas (HCC) Sylvia Horta DO [address] [place] [address] Phone: tel: fax: Referral ID Status Reason Start Date Expiration Date Visits Requested Visits Authorized [id number] Authorized Specialty Services Required 12/31/2024 999 999 [...] (HCC) Sylvia Horta DO [address] [place] [address] Phone: tel: fax: Referral ID Status Reason Start Date Expiration Date Visits Requested Visits Authorized [id number] Authorized Specialty Services Required 12/31/2024 999 999 [...] Horta DO [address] [place] [address] Test Results Allergies Active Allergy Reactions Criticality [...] 10 MG Oral Tablet (Norvasc)Indicat ions:History of [place] (myocardial infarction) TAKE 1 TABLET [...] - 2014 Coronary artery disease invo lving [place] coronary artery of [place] heart without angina pectoris 11/19/2016 History of [...] 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 * Telephone Encounter - Sylvia Horta DO - 01/03/2025 12:05 PM EDT I believe the patient will need to see Medical Oncology as well. Can we help attain an appointment with them * Telephone Encounter - Kristine Whittington RN - 12/31/2024 3:33 PM EDT Called and spoke with pt's . Scheduled for 01/07/25 in [facility]. She is upset because pt is symptomatic, however Dr. Campa is in the OR until 01/06/25 which I did offer, however she chose to go to [facility]. Pt has not yet had staging CT [...] and fibromuscular tissue with few glands with etct-og-sxejcuyt atypia, and abundant eosinophils with few neutrophils, [...] [address] [place] [address] Robert Campa MD [address] [place] [address] 03/10/2025 8:20 AM EDT Office Visit Dermatology [facility] [address] [place] [address] Kandi Rubalcava PA-C [address] [place] [address] 03/25/2025 10:20 AM EDT Office Visit [facility] [address] [place] [address] Luis Espinoza, DO [address] [place] [address] 04/06/2025 3:30 PM EDT Office Visit Cardiology, [facility] [address] [place] [address] Florida Martinez IV, MD [address] [place] [address] 06/29/2025 2:00 PM EDT Office Visit Nephrology, [facility] [address] [place] [address] Aravind De La O MD [address] [place] [address] 08/15/2025 9:20 AM EST Office Visit [facility] [address] [place] [address] Luis Espinoza, DO [address] [place] [address] 10/24/2025 11:00 AM EST Office Visit Cardiology, [facility] [address] [place] [address] Heidi Hitchcock PA-C [address] [place] [address] Scheduled Orders Name Type Priority Associated Diagnoses [...] Additional history exists CKD HGB USE SMARTSET 32944 01/03/202601/03, 12/29/2024, 12/29/2024, Additional history exists CKD PHOS USE SMARTSET 82584 01/03/20260 12/2024, 01/03/2025, 11/26/2024, Additional history exists [...] this encounter Medical Devices Implanted Type Area Bank Vault Clerk Device Identifier Shelf Expiration Date Model / Serial / Lot Clip Quick 2.8mm 230cm - [id number] Implanted:Qty: 1 on 08/19/2022 by Jojo Pearson MD at ENDOSCOPY [facility] [employer] 12/29/2024 HX-UR.A / / 25K Clip Quick 2.8mm 230cm - [id number] Implanted:Qty: 1 on 08/19/2022 by Jojo Pearson MD at ENDOSCOPY [facility] [employer] 12/29/2024-UR.A / / 25K Clip Quick 2.8mm 230cm - [id number] Implanted:Qty: 1 on 08/19/2022 by Jojo Pearson MD at ENDOSCOPY [facility] [employer] 12/29/2024 HX-UR.A / / 25K Clip Quick 2.8mm 230cm - [id number] Implanted:Qty: 1 on 08/19/2022 by Jojo Pearson MD at ENDOSCOPY [facility] [employer] 12/29/2024-UR.A / / 25K Clip Quick 2.8mm 230cm - [id number] Implanted:Qty: 1 on 08/19/2022 by Jojo Pearson MD at ENDOSCOPY [facility] [employer] 12/29/2024 HX-UR.A / / 25K Clip Quick 2.8mm 230cm - [id number] Implanted:Qty: 1 on 08/19/2022 by Jojo Pearson MD at ENDOSCOPY [facility] [employer] 12/29/2024 HX-UR.A / / 25K documented as of this encounter Visit Diagnoses Diagnosis Malignant neoplasm of head of pancreas (HCC)- Primary Malignant neoplasm of head of pancreas documented in this encounter Advance Directives Documents on File Type Date Recorded Patient Psychological Operations Expl anation Advance Directives and Living Will [...] Care Agent (per Health Care Power of Behavioral Medical Director document) [email or web address] Care Teams Portrait Artist Relationship Specialty Start Date End Date Luis Espinoza DO [address] [place] [address] PCP - General Family Medicine 02/16/17 documented as of this encounter
[2025-01-16] MEDS: fentaNYL citrate PF 100 MCG/2 ML VIAL IV STA (12:20)
[2025-01-16 12:30] LABS: Basophils # (auto) 0.08 K/uL (0.00-0.20); Basophils % (auto) 0.5 %; Eosinophils # (auto) 0.09 K/uL (0.00-0.50); Eosinophils % (auto) 0.5 %; Hematocrit (blood only) 47.1 % (42.0-52.0); Hemoglobin 15.6 g/dl (14.0-18.0); Immature Granulocytes # (auto) 0.23 K/uL (0.01-0.20); Immature Granulocytes % (auto) 1.3 %; Lymphocytes # (auto) 0.69 K/uL (1.20-3.40); Mean Corpuscular Hemoglobin 29.8 pg (25.0-34.0); Mean Corpuscular Hgb Conc 33.1 g/dL (32.0-36.0); Mean Corpuscular Volume 90.1 fL (80.0-100.0); Mean Platelet Volume 10.3 fL (9.4-12.4); Monocytes # (auto) 0.85 K/uL (0.11-0.59); Monocytes % (auto) 4.9 %; Neutrophils # (auto) 15.45 K/uL (1.40-6.50); Neutrophils % (auto) 88.8 %; Platelet Count 517 K/uL (130-400); RDW Coefficient of Variation 14.3 % (11.5-14.5); RDW Standard Deviation 46.9 fL (36.4-46.3); Red Blood Count 5.23 M/uL (4.70-6.10); White Blood Count 17.39 K/ul (4.8-10.8)
[2025-01-16 12:38] LABS: INR 2.9 (0.9-1.1); Prothrombin Time 28.3 Seconds (9.0-12.0)
[2025-01-16 13:00] LABS: BUN Creatinine Ratio 16.5 (10-20); Bilirubin,Total 4.6 mg/dl (0.2-1.0); Calcium 9.6 mg/dl (8.6-10.3); Creatinine Clr Calc Pharmacy 34.4 ml/min; Globulin 3.9 gm/dl (2.5-4.0); Potassium 4.1 mmol/L (3.5-5.1); Total Protein 7.9 gm/dl (6.0-8.3)
[2025-01-16] MEDS: PIPERACILLIN/TAZOBACTAM 4.5 GM/100 ML BAG IV ONE (13:01)
[2025-01-16] MEDS: SODIUM CHLORIDE 0.9% 1,000 ML IV SCH ×2 (13:02→18:24)
[2025-01-16 13:06] LABS: Troponin I High Sensitivity 27.5 pg/ml (0-20)
[2025-01-16] MEDS: OPTIRAY 320 100ml IV ONE (13:42)
--- NOTE | 2025-01-16 13:45 | XRay Report ---
XR chest 1V portable HISTORY: 84 years-old Male Sepsis COMPARISON: 10/28/2023 TECHNIQUE: AP view of the chest FINDINGS: Cardiac silhouette is enlarged. Median sternotomy with mediastinal surgical clips. Pulmonary vascular congestion. No pneumothorax, pleural effusion or overt pulmonary edema. Chronic interstitial coarsen ing. Unchanged right paratracheal opacity, likely secondary to summation density. Degenerative change s of the shoulders and spine. IMPRESSION: Cardiomegaly with pulmonary vascular congestion. ACT 112: Negative or not required by law. The above report was generated using voice recognition software. It may contain grammatical, syntax o r spelling errors. Electronically signed by: Kapil Hernandez M.D. 01/16/2025 1:43 PM
[2025-01-16] MEDS: SODIUM CHLORIDE 0.9% 500 ML IV SCH (14:08)
--- NOTE | 2025-01-16 14:13 | Electrocardiogram Report ---
Test Reason : Blood Pressure : */* mmHG Vent. Rate : 96 BPM Atrial Rate : 82 BPM P-R Int : * ms QRS Dur : 94 ms QT Int : 350 ms P-R-T Axes : * 92 -15 degrees QTcB Int : 442 ms Atrial fibrillation Rightward axis Minimal voltage criteria for LVH, may be normal variant Abnormal ECG When compared with ECG of 02-Jan-2025 20:46, T wave inversion no longer evident in Lateral leads Confirmed by Anival Weems ([id number]) on 01/16/2025 2:13:12 PM Referred By: Confirmed By: Anival Weems
--- NOTE | 2025-01-16 14:25 | CT Scan Report ---
EXAMINATION: CT of the abdomen and pelvis performed after the administration of IV contrast TECHNIQUE: Helical CT images from the lung bases through the symphysis pubis were obtained with contrast. Coronal and sagittal reformatted images were generated at a workstation for further assessment. Dose reduction techniques were achieved by using automatic exposure control and/or adjustment of mA and/or kV according to patient size and/or use of iterative reconstruction technique. COMPARISON: January 02, 2025 HISTORY: Abdominal pain FINDINGS: Lower chest: No consolidation. No pleural effusion or pneumothorax. Right basilar subsegmental atelectasis. Findings of significant cardiomegaly, with large mid of the right and left atria partially seen. Liver: No suspicious liver lesions. Portal veins appear patent. Diffuse prominent intrahepatic biliary ductal dilatation. Left lobe pneumobilia. A common bile duct stent is in place. Thickening and enhancement of the CBD wall, especially above the level of the stent. Gallbladder: Surgically absent Spleen: Normal size. Pancreas: A necrotic rim-enhancing mass is seen in the head of the pancreas anterior to the biliary stent, similar in size from prior, in the axial plane measuring 28 x 22 mm, series 3 image 130. An area of significant masslike density, anterior to the pancreas on image 147 is also seen, measuring 4.8 x 2.6 cm, also not significantly changed. Adrenal glands: No adrenal nodules. Kidneys: No hydronephrosis or obstructing renal stones. Several small cysts. Bladder / Pelvic organs: Unremarkable. Bowel: No bowel obstruction. No abnormal bowel wall thickening. The appendix is not seen. Several fluid-filled loops of nondilated small bowel suggestive of enteritis. Interval placement of a gastrojejunal stent, with decompression of the stomach which remains mildly distended and fluid-filled. There is a small hiatal hernia. There is prominent wall thickening circumferentially of the lower esophagus suggesting esophagitis. Lymph nodes: Mildly prominent, shotty appearing aortocaval lymph nodes, are not significantly changed, either reactive or metastatic. Peritoneum / Retroperitoneum: No free fluid or air within the abdomen. Vessels: No infrarenal aortic aneurysm. Heavy aortoiliac calcification.The mass is seen to occlude the SMV, with numerous collaterals seen throughout the mesentery. There is near complete circumferential contact of the SMA. Bones and soft tissues: No suspicious lesion in the bones. IMPRESSION: 1. Similar size of the masslike lesions seen throughout the head of the pancreas. Significant pancreatic ductal dilatation. The mass is seen to occlude the SMV, with numerous collaterals throughout the mesentery. There is near complete circumferential contact of the SMA. 2. Interval placement of a gastrojejunal stent, with interval decompression of the stomach. 3. Scattered aortocaval mildly prominent lymph nodes, are not significantly changed, either reactive or metastatic. Electronically signed by Jeison Whipple 01-16-2025 2:23 PM
[2025-01-16] MEDS: HYDROmorphone INJ 1 MG/ML SYRINGE IV STA (16:01)
--- NOTE | 2025-01-16 16:06 | History & Physical Report ---
Date of Service January 16, 2025 Assessment & Plan (1) Intractable abdominal pain: (2) Primary adenocarcinoma of pancreatic duct: (3) Metastatic adenocarcinoma: (4) Permanent atrial fibrillation: Plan Mr. Mcfarlane is an 84 year old, male with with history of chronic diastolic failur e, atrial fibrillation/flutter on warfarin, hypertension, hyperlipidemia, coronary artery disease status post CABG in 1990 and [place] s/p PCI x3 stents in 2011, metastatic pancreatic cancer presented to [facility] ED due to uncontrolled pain 2/2 metastatic disease. Potentially pain crisis likely given misunderstanding of instructions, therefore will resume MS contin BID and the oxycodone 5-10mg [id number] prn for breakthrough. Broached conversation of hospice with . wishes to discuss with sons. Patient with notable pain medicine, therefore full goals of care to be continued through out hospital course #Uncontrolled cancer related pain #Pancreatic adenocarcinoma with metastatic disease #Transaminitis S/P AXIOS stent placement with GI on 01/05/25 Established with palliative, seeming miscommunication from what is documented v what patient & understoof Continue home MS Contin BID Continue with Oxycodone 5-10mg q4 prn for mild/mod pain Narcan prn bowel regimen PT/OT Palliative consult: help guide family discussions and further pain regimen repeat CMP in am, consider GI consult contigent on patient GoC and trends diet as tolerated #Leukocytosis #Thrombocytosis #possible sepsis, given lactate, WBC,tachycardia no suspected source, suspect progression of malignancy chronically elevated WBC suspect lactate 2/2 poor po, wbc and tachycardia 2/2 malignancy monitor on tele UA and blood cultures ordered low threshold to resume abx repeta lactate gentle IVF for now #relative hypotension #CAD s/p CABG #HTN hold home lisinopril and amlodipine, consider discontinuation based upon pain meds and bp continue coreg with hold parameters hold ASA and statin for now, consider resuming based on dispo planning (hospice v HH) #Severe protein calorie malnutrition, about 20lb weight loss recently likely iso malignancy Prefers strawberry protein beverage, nutrition consult #persistent a fib on AC on 2mg MWF, and 4mg all other days in the evening continue 2mg warfarin starting tomorrow based upon am trend INR in am #Depression continue carbamazepine ER DVT ppx coumadin admit med surg DNR/DNI per bedside discussion with and patient Admission and Anticipated Discharge Date Admission Date: Time spent evaluating patient, direct bedside care, chart review, placing orders, interpretation of diagnostic studies, discussion with consultants, patient, and family members, as well as other required patient management activities is 90 minutes. History of Present Illness Chief Complaint: Metastatic Pancreatic Adenocarcinoma, Uncontrolled pain Primary Care Provider: Luis Espinoza DO Mr. Mcfarlane is an 84 year old, male with with history of chronic diastolic failure, atrial fibrillation/flutter on warfarin, hypertension, hyperlipidemia, coronary artery disease status post CABG in 1990 and [place] s/p PCI x3 stents in 2011, metastatic pancreatic cancer presented to [facility] ED due to uncontrolled pain 2/2 metastatic disease. On 12/22/2024, patient presented with abdominal pain and CT revealed large infiltrative pancreatic head/uncinate process mass likely represents primary adenocarcinoma of the pancreas causing obstruction with dilation of the pancreatic and common bile ducts, as well as involvement of the duodenum with vascular involvement. On 12/24/2024 he had a EGD and EUS completed. EUS note a 36mm mass in the pancreatic head, [id number] by endosonographic criteria. A biliary sphincterotomy was performed. Cells for cytology obtained in the lower third of the main duct. One covered metal stent was placed into the common bile duct. Pathology consistent with atypical epithelial cells that were suspicious for adenocarcinoma and elevated CEA. Patient was admitted to the hospital on 01/03/2025 with a worsening abdominal pain with the vomiting and nausea and no bowel movements in the setting of SBO in the setting of a known new pancreatic mass. Patient was deemed not to be a surgical candidate so ultimately underwent GJ stent placement with GI. He tolerated this procedure well and now tolerates a mechanical soft diet. Patient saw Dr. Nicole on 01/10 with plans for follow up in two weeks to see if patient would increase functional status to be considered for treatment. Patient established with palliative care on 01/12 for better pain management. At that time, patient was transitioned to MS contin 15mg BID and with oxycodone prn. Patient was a bit confused and struggled to answer questions, alert, awake and oriented to self and somewhat situation. provided most of history. She states she was not sure she could give the oxycodone as needed, she was trying to see how the patient did with just the MS conitin, however, noted that in the evening his pain was uncontrolled then gave ms contin and oxycodone 10mg. She then tried to wait and gave ms contin in the morning, but pain was so severe it prompted presentation to the ED. Patient states better pain control on exam. He reports overall poor appetite, but does like the strawberry milkshakes. He denies nausea or vomiting. He thinks his last bowel movement was 1-2 days ago but he does not recall. Hospice was discussed with . She does note that she does not suspect the patient will make it to chemotherapy. She was open to hospice conversation and wishes to broach it with her two sons before making a decision. Patient did not take any other home medications this am In the ED, vitals were notable for BP of 90s-150s HR of 80-100s, and O2 sat of mid-high 90s on room air Imaging revealed ongoing disease burden of pancreas, lad, and GJ stent placement EKG a fib with controlled rate ED interventions: fentanyl 50mcg, zosyn, 1.5 L NS Patient to be admitted to med surg for further evaluation and management of uncontrolled cancer pain Allergies Allergy/AdvReac Type Severity Reaction Status Date / Time pollen extracts Allergy Mild Sneezing Verified 01/16/25 14:27 Home Medications Medication Instructions Recorded Confirmed Type amlodipine 10 mg tablet 10 mg PO QAM 02/14/20 01/16/25 History latanoprost 0.005 % eye drops 1 drp OPB HS 02/14/20 01/16/25 History rosuvastatin 40 mg tablet (Crestor) 40 mg PO QPM 02/14/20 01/16/25 History aspirin 81 mg tablet,delayed 81 mg PO QAM #0 tabs 02/25/20 01/16/25 Rx release cholecalciferol (vitamin D3) 50 50 mcg PO QPM 08/07/21 01/16/25 History mcg (2,000 unit) capsule timolol maleate 0.5 % eye drops 1 drp OPL QAM 08/29/22 01/16/25 History carbamazepine 300 mg 300 mg PO HS 10/31/22 01/16/25 History capsule,extended release [id number] ketoconazole 2 % topical cream 1 applic topical DAILY 04/08/23 01/16/25 History carvedilol 6.25 mg tablet 6.25 mg PO AMHS 10/28/23 01/16/25 History lisinopril 20 mg tablet 20 mg PO BID 10/28/23 01/16/25 History loratadine 10 mg tablet 10 mg PO QAM 10/28/23 01/16/25 History meclizine 25 mg tablet 25 mg PO TID PRN Dizziness 10/28/23 01/16/25 History sildenafil 50 mg tablet 50 mg PO DIRECTED PRN Sexual 10/28/23 01/16/25 History Activity triamcinolone acetonide 0.1 % 1 applic topical BID PRN Skin 10/28/23 01/16/25 History topical cream Irritation warfarin 2 mg tablet See Rx Instructions .Route .COMPLEX 10/28/23 01/16/25 H istory potassium citrate 15 mEq (1,620 15 meq PO QAM #90 tabs 08/18/24 01/16/25 Rx mg) tablet,extended release omeprazole 40 mg capsule,delayed 40 mg PO DAILYBB 12/22/24 01/16/25 History release morphine 15 mg tablet,extended 15 mg PO BID 01/16/25 01/16/25 History release ondansetron HCl 4 mg tablet 4 mg PO Q6H PRN Nausea 01/16/25 01/16/25 History Past Med/Surg History Problem List (Updated 01/16/25 @ 17:43 by Nette Sherwood MD) Metastatic adenocarcinoma Primary adenocarcinoma of pancreatic duct Elevated lipase (Acute) Transaminitis (Acute) Elevated troponin (Acute) Elevated lactic acid level (Acute) Elevated procalcitonin (Acute) Leukocytosis (Acute) Sepsis (Acute) Intractable abdominal pain (Acute) Bowel obstruction (Acute) BPH (benign prostatic hyperplasia) (Chronic) Asymptomatic hypertensive urgency Acute cholecystitis (Acute) H/O right inguinal hernia repair (05/29/23) Open Right Inguinal Hernia Repair with Mesh(Right) ; excision of cord lipoma- Kartik Tristan, DO Encounter for pre-operative examination DVT prophylaxis HTN (hypertension) History of nephrolithiasis Hypertensive urgency Atypical chest pain (Acute) Hypertensive urgency (Acute) A-fib (Acute) Subtherapeutic anticoagulation (Acute) Nephrolithiasis (Acute) Bladder pain Right inguinal pain Right inguinal hernia Incarcerated right inguinal hernia Permanent atrial fibrillation 2011- w/ [facility] cardio 12/2022 S/P left inguinal hernia repair (02/17/22) Open Left Inguinal Hernia Repair with Mesh and Excision of Cord Lipoma(Left) - Kartik Tristan DO 10/18/2021 Vitamin D deficiency CAD (coronary artery disease) s/p CABG- 3 vessel (1990), PVI + stent (2011) History of OK (myocardial infarction) 1990, 2012x3 (had stent placed twice) Medical History History of Mohs micrographic surgery for skin cancer FOREHEAD 01/2023 History of COVID-19 05/2022, home test, mild symptoms and cough>lasted 3 days>resolved. Inguinal hernia of left side without obstruction or gangrene Bladder outlet obstruction Follows with urology Skin cancer Follows derm History of nephrolithiasis HLD (hyperlipidemia) HTN (hypertension) On anticoagulant therapy Glaucoma Follows with eye doctor Depression Bipolar 1 disorder Surgical History Hx laparoscopic cholecystectomy (10/29/23) Laparoscopic Cholecystectomy - Bridget Hayes DO Hx of left cataract extraction Hx of right cataract extraction History of transurethral resection of prostate 06/14/21 [facility]: MAC. No issues per anesthesia postop progress note. History of colonoscopy History of cardioversion ~2011, [facility]; attempted, not successful "have been in a-fib ever since"; f/u dr galvin, [facility] History of vasectomy History of heart artery stent x 2 (both placed in 2011) History of cardiac cath PVI + stent (2011)-"had 3 minor heart attacks" History of cystoscopy History of coronary artery bypass graft 1990; follows with [facility] S/P appendectomy 1960 Family History Mother Myocardial infarction Father Cancer Multiple Myeloma Social History Smoking Status: Never smoker Tobacco Type: Cigarettes packs per day: 1; Second Hand Exposure: No; Do You Dip or Chew Tobacco: No; Hx Alcohol Use: No Hx Substance Use: No Preferred Language: [place] Communication Ability: Effective Visual Impairment: No Limitations Retail Service Specialist Required: No Beliefs That Will Affect Care: None marital status: Current Living Situation: Spouse current occupational status: retired How many Children do You have: 2 Feels Safe at Home: Yes Diet: regular during the past year weight has: remained stable Assistive Devices: Glasses Review of Systems Review of Systems: Constitutional: (-) fever/chills, (+) recent loss of weight, (+) appetite changes, (-) night sweats. Head: (-) headache, (-) dizziness. Eye: (-) blurring of vision, (-) double vision, (-) redness. Ear: (-) hearing loss, (-) discharge, (-) vertigo Nose: (-) discharge, (-) bleeding, (-) congestion, (-) post nasal drip. Throat: (-) sore throat, (-) hoarseness of voice, (-) odynophagia. Cardiovascular: (-) chest pain, (-) palpitations, (-) syncope, (-) orthopnea, (- ) PND, (-) leg swelling. Respiratory: (-) shortness of breath, (-) cough, (-) wheezing, (-) hemoptysis. Neuro: (+) weakness in extremities, (-) numbness, (-) tingling, (-) tremor. Gastrointestinal: (+) belly pain, (+) belly distension, (+) nausea, (-) vomiting, (-) diarrhea, (+) constipation Genitourinary: (-) hematuria, (-) dysuria, (-) polyuria, (-) hesitancy, (-) frequency, (-) urinary incontinence. Musculoskeletal: (-) myalgia, (-) arthralgia. Skin: (-) rashes. Endocrine: (-) heat/cold intolerance. Psychiatry: (-) depression, (-) hallucination. Physical Exam Physical Exam: GENERAL APPEARANCE: AxOx1-2, chronically ill but no distress HEENT: NC, AT. MMM. EOMI, clear conjunctiva, oropharynx clear. NECK: Supple without lymphadenopathy. No stiffness or restricted ROM. HEART: irregularly irregular LUNGS: CTAB, moving air well however diminshed in bases ABDOMEN: Soft,mildly distended, nontender on exam BACK: No CVAT, no obvious deformity. EXTREMITIES: Without cyanosis, clubbing or edema. NEUROLOGICAL: Grossly nonfocal. Alert and oriented, moving all 4 extremities. CN not formally tested but appear grossly intact. Skin: Warm and dry without any ludwig, jaundice noted Results & Data Results & Data Vital Signs (Past 12 Hours) Vital Signs Temp Pulse Pulse Resp BP BP Pulse Ox 01/16/25 15:15 97 H 20 126/79 96 01/16/25 15:00 101 H 21 99/76 L 95 01/16/25 14:23 96 H 23 158/88 H 91 01/16/25 14:04 90 20 171/89 H 97 01/16/25 13:08 106 H 27 H 172/87 H 96 01/16/25 13:06 94 H 24 172/87 H 96 01/16/25 13:06 94 H 24 96 01/16/25 12:18 90 01/16/25 12:10 37.1 C 99 H 17 183/97 H 96 O2 Del Method 01/16/25 15:15 Room Air 01/16/25 15:00 Room Air 01/16/25 14:23 Room Air 01/16/25 14:04 Room Air 01/16/25 13:08 Room Air 01/16/25 13:06 Room Air 01/16/25 13:06 Room Air 01/16/25 12:18 01/16/25 12:10 Room Air Laboratory Results Short CBC 01/16/25 Range/Units 12:09 WBC 17.39 H (4.8-10.8) K/ul Hgb 15.6 (14.0-18.0) g/dl Hct 47.1 (42.0-52.0) % Plt Count 517 H (130-400) K/uL BMP 01/16/25 12:09 Sodium 138 Potassium 4.1 Chloride 98 Carbon Dioxide 27 BUN 21 Creatinine 1.27 Glucose 184 H Calcium 9.6 Liver Function 01/16/25 Range/Units 12:09 Total Bilirubin 4.6 H (0.2-1.0) mg/dl AST 389 H (13-39) U/L ALT 223 H (7-52) U/L Alkaline Phosphatase 758 H (34-104) U/L Albumin 4.0 (3.4-5.0) gm/dl Urine 01/16/25 Range/Units 15:58 Urine Color Yellow Urine Appearance Clear (Clear) Urine pH 7.0 (4.5-7.5) Ur Specific [place] 1.031 H (1.000-1.030) Urine Protein 1+ H (Negative) Urine Glucose (UA) Trace H (Negative) Diagnostic Findings EXAMINATION: CT of the abdomen and pelvis performed after the administration of IV contrast TECHNIQUE: Helical CT images from the lung bases through the symphysis pubis were obtained with contrast. Coronal and sagittal reformatted images were generated at a workstation for further assessment. Dose reduction techniques were achieved by using automatic exposure control and/or adjustment of mA and/or kV according to patient size and/or use of iterative reconstruction technique. COMPARISON: January 02, 2025 HISTORY: Abdominal pain FINDINGS: Lower chest: No consolidation. No pleural effusion or pneumothorax. Right basilar subsegmental atelectasis. Findings of significant cardiomegaly, with large mid of the right and left atria partially seen. Liver: No suspicious liver lesions. Portal veins appear patent. Diffuse prominent intrahepatic biliary ductal dilatation. Left lobe pneumobilia. A common bile duct stent is in place. Thickening and enhancement of the CBD wall, especially above the level of the stent. Gallbladder: Surgically absent Spleen: Normal size. Pancreas: A necrotic rim-enhancing mass is seen in the head of the pancreas anterior to the biliary stent, similar in size from prior, in the axial plane measuring 28 x 22 mm, series 3 image 130. An area of significant masslike density, anterior to the pancreas on image 147 is also seen, measuring 4.8 x 2.6 cm, also not significantly changed. Adrenal glands: No adrenal nodules. Kidneys: No hydronephrosis or obstructing renal stones. Several small cysts. Bladder / Pelvic organs: Unremarkable. Bowel: No bowel obstruction. No abnormal bowel wall thickening. The appendix is not seen. Several fluid-filled loops of nondilated small bowel suggestive of enteritis. Interval placement of a gastrojejunal stent, with decompression of the stomach which remains mildly distended and fluid-filled. There is a small hiatal hernia. There is prominent wall thickening circumferentially of the lower esophagus suggesting esophagitis. Lymph nodes: Mildly prominent, shotty appearing aortocaval lymph nodes, are not significantly changed, either reactive or metastatic. Peritoneum / Retroperitoneum: No free fluid or air within the abdomen. Vessels: No infrarenal aortic aneurysm. Heavy aortoiliac calcification.The mass is seen to occlude the SMV, with numerous collaterals seen throughout the mesentery. There is near complete circumferential contact of the SMA. Bones and soft tissues: No suspicious lesion in the bones. IMPRESSION: 1. Similar size of the masslike lesions seen throughout the head of the pancreas. Significant pancreatic ductal dilatation. The mass is seen to occlude the SMV, with numerous collaterals throughout the mesentery. There is near complete circumferential contact of the SMA. 2. Interval placement of a gastrojejunal stent, with interval decompression of the stomach. 3. Scattered aortocaval mildly prominent lymph nodes, are not significantly changed, either reactive or metastatic. Electronically signed by Jeison Whipple 01-16-2025 2:23 PM Medications Administered Home Medications Medication Instructions Recorded Confirmed Last Taken amlodipine 10 mg tablet 10 mg PO QAM 02/14/20 01/16/25 05/28/23 18:30 latanoprost 0.005 % eye drops 1 drp OPB HS 02/14/20 01/16/25 05/28/23 22:30 rosuvastatin 40 mg tablet (Crestor) 40 mg PO QPM 02/14/20 01/16/25 05/28/23 18:30 aspirin 81 mg tablet,delayed 81 mg PO QAM #0 tabs 02/25/20 01/16/25 05/28/23 08:00 release cholecalciferol (vitamin D3) 50 50 mcg PO QPM 08/07/21 01/16/25 05/28/23 18:30 mcg (2,000 unit) capsule timolol maleate 0.5 % eye drops 1 drp OPL QAM 08/29/22 01/16/25 05/29/23 06:00 carbamazepine 300 mg 300 mg PO HS 10/31/22 01/16/25 05/28/23 18:30 capsule,extended release [id number] ketoconazole 2 % topical cream 1 applic topical DAILY 04/08/23 01/16/25 Unknown carvedilol 6.25 mg tablet 6.25 mg PO AMHS 10/28/23 01/16/25 Unknown lisinopril 20 mg tablet 20 mg PO BID 10/28/23 01/16/25 Unknown loratadine 10 mg tablet 10 mg PO QAM 10/28/23 01/16/25 Unknown meclizine 25 mg tablet 25 mg PO TID PRN Dizziness 10/28/23 01/16/25 Unknown sildenafil 50 mg tablet 50 mg PO DIRECTED PRN Sexual 10/28/23 01/16/25 Unknown Activity triamcinolone acetonide 0.1 % 1 applic topical BID PRN Skin 10/28/23 01/16/25 Unknown topical cream Irritation warfarin 2 mg tablet See Rx Instructions .Route .COMPLEX 10/28/23 01/16/25 Unknown potassium citrate 15 mEq (1,620 15 meq PO QAM #90 tabs 08/18/24 01/16/25 Unknown mg) tablet,extended release omeprazole 40 mg capsule,delayed 40 mg PO DAILYBB 12/22/24 01/16/25 Unknown release morphine 15 mg tablet,extended 15 mg PO BID 01/16/25 01/16/25 01/16/25 release ondansetron HCl 4 mg tablet 4 mg PO Q6H PRN Nausea 01/16/25 01/16/25 Unknown
[2025-01-16 16:19] LABS: Appearance Urine Clear (Clear); Bacteria Urine Automated None Seen (None Seen); Bilirubin Urine Negative (Negative); Blood Urine Negative (Negative); Cast Urine Automated 0-2 /lpf (0-2); Color Urine Yellow; Epithelial Cell Urine Auto 0-2 /hpf (0-2); Glucose Urine UA Trace (Negative); Ketones Urine Negative (Negative); Leukocyte Esterase Urine Negative (Negative); Nitrite Urine Negative (Negative); Protein Urine 1+ (Negative); RBC Urine Automated 0-2 /hpf (0-2); Specific Gravity Urine 1.031 (1.000-1.030); Urobilinogen Urine Negative (Negative); WBC Urine Automated 0-5 /hpf (0-5)
[2025-01-16] MEDS ORDERED: ONDANSETRON INJ 2 MG/ML 2 ML VIAL IV PRN (18:22)
[2025-01-16] MEDS ORDERED: MECLIZINE HCL 25 MG TAB PO PRN (18:22)
[2025-01-16] MEDS ORDERED: NALOXONE HCL 0.4 MG/1 ML VIAL/CARP IV PRN (18:22)
[2025-01-16] MEDS ORDERED: oxyCODONE HCL IR 5 MG TAB (IMMEDIATE RELEASE) PO PRN (18:22)
[2025-01-16] MEDS ORDERED: ACETAMINOPHEN 325 MG TAB PO PRN (18:22)
[2025-01-16] MEDS: carBAMazepine XR 200 MG TABCR PO SCH (20:19)
[2025-01-16] MEDS: carvediloL 6.25 MG TAB PO SCH (20:19)
[2025-01-16] MEDS: carBAMazepine XR 100 MG TABCR PO SCH (20:19)
[2025-01-16] MEDS: LATANOPROST 0.005% OP SOLN 2.5 ML BTL OPB SCH (20:20)
[2025-01-16] MEDS: MoRPHine SULFATE CR 15 MG TABCR PO SCH (20:23)
[2025-01-16] MEDS: POLYETHYLENE (MIRALAX) 17 GM PACK PO SCH (20:23)
[2025-01-17 03:01] LABS: A calco-baum cmplx NotReported Not Detected (NotDetected); Bact fragilis Not Reported Not Detected (NotDetected); Blood Culture Id Panel See PCR Comment (NotDetected); C auris Not Reported Not Detected (NotDetected); Calbicans Not Reported Not Detected (NotDetected); Candida glabrata Not Reported Not Detected (NotDetected); Candida krusei Not Reported Not Detected (NotDetected); Cneoformans/gatti Not Reported Not Detected (NotDetected); Cparapsilosis Not Reported Not Detected (NotDetected); Ctropicalis Not Reported Not Detected (NotDetected); E cloacae compx Not Reported Not Detected (NotDetected); Efaecalis Not Reported Not Detected (NotDetected); Efaecium Not Reported DETECTED (NotDetected); Enterobacterales Not Reported Not Detected (NotDetected); Escherichia coli Not Reported Not Detected (NotDetected); H influenzae Not Reported Not Detected (NotDetected); K aerogenes Not Reported Not Detected (NotDetected); Koxytoca Not Reported Not Detected (NotDetected); Kpneumoniae grp Not Reported Not Detected (NotDetected); Lmonocyt Not Reported Not Detected (NotDetected); N meningitidis Not Reported Not Detected (NotDetected); P aeruginosa Not Reported Not Detected (NotDetected); Proteus spp Not Reported Not Detected (NotDetected); Salmonella spp Not Reported Not Detected (NotDetected); Staph lugdunensis Not Reported Not Detected (NotDetected); Staph spp. Not Reported Not Detected (NotDetected); Staphaureus Not Reported Not Detected (NotDetected); Staphepi Not Reported Not Detected (NotDetected); Stenmaltophilia Not Reported Not Detected (NotDetected); Strep agal(GrpB) Not Reported Not Detected (NotDetected); Strep pneum Not Reported Not Detected (NotDetected); Strep pyog (GrpA) Not Reported Not Detected (NotDetected); Strep spp Not Reported Not Detected (NotDetected); VanAB Resistant Gene VRE Not Detected (NotDetected)
[2025-01-17 03:36] LABS: Enterococcus faecium DETECTED (NotDetected)
[2025-01-17] MEDS ORDERED: VANCOMYCIN CONSULT ACTIVE PRN (07:29)
[2025-01-17] MEDS ORDERED: VANCOMYCIN HCL 1,000 MG in SODIUM CHLORIDE 0.9% 500 ML IV ONE (07:29)
[2025-01-17] MEDS: TIMOLOL MALEATE 0.5% OP SOLN 5 ML BTL OPL SCH (07:47)
[2025-01-17] MEDS: LORATADINE 10 MG TAB PO SCH (07:47)
[2025-01-17] MEDS: PANTOprazole 40 MG TAB PO SCH (07:47)
--- NOTE | 2025-01-17 07:55 | Palliative Care Consultation ---
Date of Consultation January 17, 2025 Assessment & Plan (1) Cancer related pain: Andrade has used only MS Contin and no BTP Oxy IR doses He remains sl confused He has declining PS and progressive met disease He has not been a candidate for chemo and it is unlikely he will be (2) Confusion: (3) Weakness generalized: (4) Palliative care by specialist: Introduced Palliative Medicine and explained our role in patient's care. Patient and/or family were receptive to palliative services for goals of care discussions. Reviewed we are different from hospice, a home health nurse visiting service. Patient is followed by Tomasa Chun (5) Counseling regarding advanced directives and goals of care: telephonic ACP with x 20 min Hospice was been discussed with per prior chart review, she has indicated needing to speak with their sons. I provided education about the hospice benefit: an interdisciplinary program offered by nurses, nurses aides, social workers, chaplains and a medical clinic manager for patients with a terminal condition and a life expectancy of less than 6 months. This is covered by Medicare at 100%/no out of pocket expense to patient and all meds/supplies needed by patient for the reason they are on hospice are paid for/covered by hospice. The goal is assure quality of life of the patient in their home setting (home, prison, inpatient hospice setting) by providing symptoms management, psychosocial and spiritual support. However, they cannot offer 24 hours care and if the family is unable to provide that care, they will have to consider personal care with out of pocket cost vs. prison placement. We discussed the goals of hospice as a patient service and the goals of care; we discussed EOL trajectories and transitions barby the emotional impact of realizing mortality as a concrete reality from prior abstract considerations. Pt was reassured that no matter where they are along this trajectory, they are not alone - their medical team will remain by their side through their journey. Discussed the pros/cons of accepting help when especially weakened and distressed by pain-which would also help provide relief/decrease caregiver burden/strain. She tells me she is aware he will not make it to any trial of chemo. She perceives his pain crisis as "the meds just were not doing anything for him" but also shares she cannot recall how she was administering them. We agreed to a family meeting tomorrow morning. Plan As above. Thank you for allowing us to participate in the ongoing care of this patient. Please page with any additional concerns. Jeffery Zhang DNP Director, Palliative Medicine History of Present Illness Reason for Consultation: pain mgt Attending Physician: Arlette Dickens MD History of Present Illness The patient is an 84-year-old gentleman who was admitted on 01/16/2025 with a cancer-related pain crisis. Admitting notes indicate that there was a misunderstanding of the instructions, and his home regimen of MS Contin and oxycodone 5 to 10 mg every 4 hours as needed for breakthrough pain was resumed. This gentleman has a history of chronic diastolic failure, atrial fibrillation, and flutter on warfarin. He has hypertension, hyperlipidemia, and coronary artery disease. He is status post CABG in 1990, and then an MN with PCI and three stents in 2011. He has metastatic pancreatic cancer and presented to our ER due to uncontrolled pain secondary to his metastatic disease. He is found to have transaminitis. He had Axios stent placement with GI on 01/05/2025. He established with palliative care, but there seems to be a miscommunication from what is documented versus what his and patient understood. We were consulted to help guide the family with further discussions and amplify the pain regimen. Leukocytosis and thrombocytosis were noted on admission with a concern for sepsis. No suspected source, but likely this is related to the progression of his malignancy. Lactate is elevated likely due to poor oral intake, and his white blood cell counts are elevated with tachycardia secondary to malignancy. Cultures have been ordered. He is on gentle i.v. fluids. He is somewhat confused. He is alert and awake to self but is confused as to place and time. He has had about a 20-pound weight loss in recent months with severe protein- calorie malnutrition noted. He is drinking a protein supplement shake and a nutrition consult has been ordered. He has elected a DNR/DNI status. In November 2024, he presented with abdominal pain and a CAT scan revealed a large infiltrative pancreatic head and uncinate process mass, likely related to be a primary adenocarcinoma of the pancreas. He had obstruction with dilation of the pancreatic and common bile ducts as well as involvement of the duodenum with vascular involvement. EGD and EUS were done on 12/24/2024 and noted a 36 mm mass in the pancreatic head biopsy confirmed a T3 N1 M0 pancreatic adenocarcinoma. He had a biliary sphincterectomy. Cells for cytology were done in the lower third of the main duct and stents were placed. He was readmitted on 01/03/2025 with worsening abdominal pain as well as nausea and vomiting. He had a small bowel obstruction likely in the setting of a progressive pancreatic mass. He saw oncology at [facility] with Dr. Nicole on 01/10/2025 with plans to follow up in a couple of weeks to determine if his functional status will be appropriate for treatment. He established with palliative care at [facility] on 01/12/2025 to optimize pain management and at that time was transitioned to MS Contin 15 mg twice a day along with oxycodone 5 to 10 mg every 4 hours as needed for breakthrough pain. He remains somewhat confused and struggles to answer questions. His has been providing most of the history and reports that she was trying to see how he did with just the MS Contin. However, by the evening, his pain was out of control, so she gave him both MS Contin and oxycodone 10 mg together. Unfortunately, his pain became severe, prompting an ER visit and now he is admitted. Hospice was discussed with the patient and his on admission. She notes that she does not suspect the patient will make it to chemotherapy and was receptive to a hospice conversation which she wanted to also discuss with her sons before making any decisions. Axios stent placement with GI on 01/05/2025. EGD and EUS were done on 12/24/2024, noting a 36 mm mass in the pancreatic head. Biopsy confirmed a T3 N1 M0 pancreatic adenocarcinoma. Biliary sphincterectomy was performed. Cells for cytology were done in the lower third of the main duct and stents were placed. Allergies Allergy/AdvReac Type Severity Reaction Status Date / Time pollen extracts Allergy Mild Sneezing Verified 01/16/25 14:27 Home Medications Medication Instructions Recorded Confirmed Type amlodipine 10 mg tablet 10 mg PO QAM 02/14/20 01/16/25 History latanoprost 0.005 % eye drops 1 drp OPB HS 02/14/20 01/16/25 History rosuvastatin 40 mg tablet (Crestor) 40 mg PO QPM 02/14/20 01/16/25 History aspirin 81 mg tablet,delayed 81 mg PO QAM #0 tabs 02/25/20 01/16/25 Rx release cholecalciferol (vitamin D3) 50 50 mcg PO QPM 08/07/21 01/16/25 History mcg (2,000 unit) capsule timolol maleate 0.5 % eye drops 1 drp OPL QAM 08/29/22 01/16/25 History carbamazepine 300 mg 300 mg PO HS 10/31/22 01/16/25 History capsule,extended release [id number] ketoconazole 2 % topical cream 1 applic topical DAILY 04/08/23 01/16/25 History carvedilol 6.25 mg tablet 6.25 mg PO AMHS 10/28/23 01/16/25 History lisinopril 20 mg tablet 20 mg PO BID 10/28/23 01/16/25 History loratadine 10 mg tablet 10 mg PO QAM 10/28/23 01/16/25 History meclizine 25 mg tablet 25 mg PO TID PRN Dizziness 10/28/23 01/16/25 History sildenafil 50 mg tablet 50 mg PO DIRECTED PRN Sexual 10/28/23 01/16/25 History Activity triamcinolone acetonide 0.1 % 1 applic topical BID PRN Skin 10/28/23 01/16/25 History topical cream Irritation warfarin 2 mg tablet See Rx Instructions .Route .COMPLEX 10/28/23 01/16/25 History potassium citrate 15 mEq (1,620 15 meq PO QAM #90 tabs 08/18/24 01/16/25 Rx mg) tablet,extended release omeprazole 40 mg capsule,delayed 40 mg PO DAILYBB 12/22/24 01/16/25 History release morphine 15 mg tablet,extended 15 mg PO BID 01/16/25 01/16/25 History release ondansetron HCl 4 mg tablet 4 mg PO Q6H PRN Nausea 01/16/25 01/16/25 History Patient History Medical History History of Mohs micrographic surgery for skin cancer FOREHEAD 01/2023 History of COVID-19 05/2022, home test, mild symptoms and cough>lasted 3 days>resolved. Inguinal hernia of left side without obstruction or gangrene Bladder outlet obstruction Follows with urology Skin cancer Follows derm History of nephrolithiasis HLD (hyperlipidemia) HTN (hypertension) On anticoagulant therapy Glaucoma Follows with eye doctor Depression Bipolar 1 disorder Surgical History Hx laparoscopic cholecystectomy (10/29/23) Laparoscopic Cholecystectomy - Bridget Hayes DO Hx of left cataract extraction Hx of right cataract extraction History of transurethral resection of prostate 06/14/21 [facility]: MAC. No issues per anesthesia postop progress note. History of colonoscopy History of cardioversion ~2011, [facility]; attempted, not successful "have been in a-fib ever since"; f/u dr galvin, [facility] History of vasectomy History of heart artery stent x 2 (both placed in 2011) History of cardiac cath PVI + stent (2011)-"had 3 minor heart attacks" History of cystoscopy History of coronary artery bypass graft 1990; follows with [facility] S/P appendectomy 1960 Family History Mother Myocardial infarction Father Cancer Multiple Myeloma Social History Smoking Status: Never smoker Tobacco Type: Cigarettes packs per day: 1; Second Hand Exposure: No; Do You Dip or Chew Tobacco: No; Hx Alcohol Use: No Hx Substance Use: No Preferred Language: Thai Communication Ability: Effective Visual Impairment: No Limitations Knot Bumper Required: No Beliefs That Will Affect Care: None marital status: Current Living Situation: Spouse Current Living Situation Comment: lives with Jie current occupational status: retired How many Children do You have: 2 Feels Safe at Home: Yes Safety Concerns: Feels Safe At This Time Diet: regular during the past year weight has: remained stable Assistive Devices: Hearing Aid - Bilateral Review of Systems Review of Systems: Unobtainable due to cognitive status Physical Exam Physical Exam: - Chronically ill but in no significant distress - Mildly confused - Pharynx is pink, no obvious thrush - No stiffness in the neck or stridor - No resp distress - No overt cyanosis, clubbing, or edema - Skin is pale Results & Data Vital Signs (Past 12 Hours) Vital Signs Temp Pulse Resp BP BP Pulse Ox O2 Del Method 01/17/25 07:49 36.7 C 55 L 16 119/65 96 Room Air 01/16/25 21:39 36.4 C L 90 18 128/76 94 Room Air 01/16/25 20:30 Room Air Laboratory Results - Laboratory Studies: - Transaminitis found - Leukocytosis and thrombocytosis noted on admission - Elevated lactate - Elevated white blood cell counts - Imaging: - CAT scan revealed a large infiltrative pancreatic head and uncinate process mass, likely primary adenocarcinoma of the pancreas - Obstruction with dilation of the pancreatic and common bile ducts - Involvement of the duodenum with vascular involvement 01/16/25 01/16/25 01/16/25 Range/Units 17:26 15:58 14:21 WBC (4.8-10.8) K/ul RBC (4.70-6.10) M/uL Hgb (14.0-18.0) g/dl Hct (42.0-52.0) % MCV (80.0-100.0) fL MCH (25.0-34.0) pg MCHC (32.0-36.0) g/dL RDW Std Deviation (36.4-46.3) fL RDW Coeff of Bonnie (11.5-14.5) % Plt Count (130-400) K/uL MPV (9.4-12.4) fL Immature Gran % (Auto) % Neut % (Auto) % Lymph % (Auto) % Gilpin % (Auto) % Eos % (Auto) % Baso % (Auto) % Neut # (Auto) (1.40-6.50) K/uL Lymph # (Auto) (1.20-3.40) K/uL Gilpin # (Auto) (0.11-0.59) K/uL Eos # (Auto) (0.00-0.50) K/uL Baso # (Auto) (0.00-0.20) K/uL Immature Gran # (Auto) (0.01-0.20) K/uL PT (9.0-12.0) Seconds INR (0.9-1.1) Sodium (136-145) mmol/L Potassium (3.5-5.1) mmol/L Chloride (98-107) mmol/L Carbon Dioxide (21-32) mmol/L Anion Gap (3-11) BUN (6-23) mg/dl Creatinine (0.6-1.4) mg/dl Est Cr Clr Drug Dosing ml/min eGFR BUN/Creatinine Ratio (10-20) Glucose (70-99(Fasting)) mg/dl Lactate 1.3 (0.4-2.0) mmol/L Calcium (8.6-10.3) mg/dl Magnesium (1.7-2.4) mg/dl Total Bilirubin (0.2-1.0) mg/dl AST (13-39) U/L ALT (7-52) U/L Alkaline Phosphatase (34-104) U/L Troponin I High Sens 24.7 H (0-20) pg/ml Total Protein (6.0-8.3) gm/dl Albumin (3.4-5.0) gm/dl Globulin (2.5-4.0) gm/dl Albumin/Globulin Ratio (0.9-2) Lipase (11-82) U/L Procalcitonin (0-0.5) ng/ml Urine Color Yellow Urine Appearance Clear (Clear) Urine pH 7.0 (4.5-7.5) Ur Specific Purdy 1.031 H (1.000-1.030) Urine Protein 1+ H (Negative) Urine Glucose (UA) Trace H (Negative) Urine Ketones Negative (Negative) Urine Blood Negative (Negative) Urine Nitrite Negative (Negative) Urine Bilirubin Negative (Negative) Urine Urobilinogen Negative (Negative) Ur Leukocyte Esterase Negative (Negative) Urine WBC (Auto) 0-5 (0-5) /hpf Urine RBC (Auto) 0-2 (0-2) /hpf U Hyaline Cast (Auto) 0-2 (0-2) /lpf U Epithel Cells (Auto) 0-2 (0-2) /hpf Urine Bacteria (Auto) None Seen (None Seen) Urine Comment Enterococc faecium PCR (NotDetected) Willie/B-Vanco Res Genes (NotDetected) Bld Cult ID Panel PCR (NotDetected) 01/16/25 01/16/25 Range/Units 12:51 12:09 WBC 17.39 H (4.8-10.8) K/ul RBC 5.23 (4.70-6.10) M/uL Hgb 15.6 (14.0-18.0) g/dl Hct 47.1 (42.0-52.0) % MCV 90.1 (80.0-100.0) fL MCH 29.8 (25.0-34.0) pg MCHC 33.1 (32.0-36.0) g/dL RDW Std Deviation 46.9 H (36.4-46.3) fL RDW Coeff of Bonnie 14.3 (11.5-14.5) % Plt Count 517 H (130-400) K/uL MPV 10.3 (9.4-12.4) fL Immature Gran % (Auto) 1.3 % Neut % (Auto) 88.8 % Lymph % (Auto) 4.0 % Gilpin % (Auto) 4.9 % Eos % (Auto) 0.5 % Baso % (Auto) 0.5 % Neut # (Auto) 15.45 H (1.40-6.50) K/uL Lymph # (Auto) 0.69 L (1.20-3.40) K/uL Gilpin # (Auto) 0.85 H (0.11-0.59) K/uL Eos # (Auto) 0.09 (0.00-0.50) K/uL Baso # (Auto) 0.08 (0.00-0.20) K/uL Immature Gran # (Auto) 0.23 H (0.01-0.20) K/uL PT 28.3 H (9.0-12.0) Seconds INR 2.9 H (0.9-1.1) Sodium 138 (136-145) mmol/L Potassium 4.1 (3.5-5.1) mmol/L Chloride 98 (98-107) mmol/L Carbon Dioxide 27 (21-32) mmol/L Anion Gap 13 H (3-11) BUN 21 (6-23) mg/dl Creatinine 1.27 (0.6-1.4) mg/dl Est Cr Clr Drug Dosing 34.4 ml/min eGFR 56.06 BUN/Creatinine Ratio 16.5 (10-20) Glucose 184 H (70-99(Fasting)) mg/dl Lactate 2.2 H* (0.4-2.0) mmol/L Calcium 9.6 (8.6-10.3) mg/dl Magnesium 2.0 (1.7-2.4) mg/dl Total Bilirubin 4.6 H (0.2-1.0) mg/dl AST 389 H (13-39) U/L ALT 223 H (7-52) U/L Alkaline Phosphatase 758 H (34-104) U/L Troponin I High Sens 27.5 H (0-20) pg/ml Total Protein 7.9 (6.0-8.3) gm/dl Albumin 4.0 (3.4-5.0) gm/dl Globulin 3.9 (2.5-4.0) gm/dl Albumin/Globulin Ratio 1.0 (0.9-2) Lipase 239 H (11-82) U/L Procalcitonin 1.15 H (0-0.5) ng/ml Urine Color Urine Appearance (Clear) Urine pH (4.5-7.5) Ur Specific Purdy (1.000-1.030) Urine Protein (Negative) Urine Glucose (UA) (Negative) Urine Ketones (Negative) Urine Blood (Negative) Urine Nitrite (Negative) Urine Bilirubin (Negative) Urine Urobilinogen (Negative) Ur Leukocyte Esterase (Negative) Urine WBC (Auto) (0-5) /hpf Urine RBC (Auto) (0-2) /hpf U Hyaline Cast (Auto) (0-2) /lpf U Epithel Cells (Auto) (0-2) /hpf Urine Bacteria (Auto) (None Seen) Urine Comment Enterococc faecium PCR DETECTED A (NotDetected) Willie/B-Vanco Res Genes VRE Not Detected (NotDetected) Bld Cult ID Panel PCR See PCR Comment (NotDetected) Diagnostic Findings Abdomen/Pelvis CT 01/16/25 12:28 EXAMINATION: CT of the abdomen and pelvis performed after the administration of IV contrast TECHNIQUE: Helical CT images from the lung bases through the symphysis pubis were obtained with contrast. Coronal and sagittal reformatted images were generated at a workstation for further assessment. Dose reduction techniques were achieved by using automatic exposure control and/or adjustment of mA and/or kV according to patient size and/or use of iterative reconstruction technique. COMPARISON: January 02, 2025 HISTORY: Abdominal pain FINDINGS: Lower chest: No consolidation. No pleural effusion or pneumothorax. Right basilar subsegmental atelectasis. Findings of significant cardiomegaly, with large mid of the right and left atria partially seen. Liver: No suspicious liver lesions. Portal veins appear patent. Diffuse prominent intrahepatic biliary ductal dilatation. Left lobe pneumobilia. A common bile duct stent is in place. Thickening and enhancement of the CBD wall, especially above the level of the stent. Gallbladder: Surgically absent Spleen: Normal size. Pancreas: A necrotic rim-enhancing mass is seen in the head of the pancreas anterior to the biliary stent, similar in size from prior, in the axial plane measuring 28 x 22 mm, series 3 image 130. An area of significant masslike density, anterior to the pancreas on image 147 is also seen, measuring 4.8 x 2.6 cm, also not significantly changed. Adrenal glands: No adrenal nodules. Kidneys: No hydronephrosis or obstructing renal stones. Several small cysts. Bladder / Pelvic organs: Unremarkable. Bowel: No bowel obstruction. No abnormal bowel wall thickening. The appendix is not seen. Several fluid-filled loops of nondilated small bowel suggestive of enteritis. Interval placement of a gastrojejunal stent, with decompression of the stomach which remains mildly distended and fluid-filled. There is a small hiatal hernia. There is prominent wall thickening circumferentially of the lower esophagus suggesting esophagitis. Lymph nodes: Mildly prominent, shotty appearing aortocaval lymph nodes, are not significantly changed, either reactive or metastatic. Peritoneum / Retroperitoneum: No free fluid or air within the abdomen. Vessels: No infrarenal aortic aneurysm. Heavy aortoiliac calcification.The mass is seen to occlude the SMV, with numerous collaterals seen throughout the mesentery. There is near complete circumferential contact of the SMA. Bones and soft tissues: No suspicious lesion in the bones. IMPRESSION: 1. Similar size of the masslike lesions seen throughout the head of the pancreas. Significant pancreatic ductal dilatation. The mass is seen to occlude the SMV, with numerous collaterals throughout the mesentery. There is near complete circumferential contact of the SMA. 2. Interval placement of a gastrojejunal stent, with interval decompression of the stomach. 3. Scattered aortocaval mildly prominent lymph nodes, are not significantly changed, either reactive or metastatic. Electronically signed by Jeison Whipple 01-16-2025 2:23 PM Chest X-Ray 01/16/25 12:37 XR chest 1V portable HISTORY: 84 years-old Male Sepsis COMPARISON: 10/28/2023 TECHNIQUE: AP view of the chest FINDINGS: Cardiac silhouette is enlarged. Median sternotomy with mediastinal surgical clips. Pulmonary vascular congestion. No pneumothorax, pleural effusion or overt pulmonary edema. Chronic interstitial coarsening. Unchanged right paratracheal opacity, likely secondary to summation density. Degenerative changes of the shoulders and spine. IMPRESSION: Cardiomegaly with pulmonary vascular congestion. ACT 112: Negative or not required by law. The above report was generated using voice recognition software. It may contain grammatical, syntax or spelling errors. Electronically signed by: Kapil Hernandez M.D. 01/16/2025 1:43 PM PG Care Time/CCT Total # of Minutes Spent Total Time Spent with Patient: Total time spent is greater than 50% in coordination of care (as documented) at patient's floor/unit and/or counseling patient: I spent 85 minutes overall addressing this case: 25 min in medical data review/discussion with referring provider(s) and/or preparation for the visit incl OSH data review thru [facility] EMR Link 10 min in direct interaction with the patient/exam 20 min in Advance Care Planning/Goals of Care discussions as detailed above in note (must be >16min) 15 min in subsequent review and synthesis of assessment and plan 15 min communicating with other providers regarding the patient's case: primary tea, nursing, care mgt Advanced Care Planning 89875 Advanced Care Planning 30 [place] [address] IN/OBS CONSULT LVL 4,60M (25 - SIGNIFICANT, SEPARATELY IDENTIFIABLE ) Patient Type New History Comprehensive Exam Comprehensive Medical Decision Making High Complexity Diagnoses Cancer related pain G89.3 Confusion R41.0 Weakness generalized R53.1 Palliative care by specialist Z51.5 Counseling regarding advanced directives and goals of care Z71.89 Additional Codes Advanced Care Planning - 18425 Advanced Care Planning 30 Min: [id number] Advanced Care Planning 30 Min ([id number]) Comment [id number], [id number]
[2025-01-17] MEDS: VANCOMYCIN HCL 1,250 MG in SODIUM CHLORIDE 0.9% 250 ML IV STA (08:21)
[2025-01-17 08:24] LABS: Hematocrit (blood only) 34.1 % (42.0-52.0); Hemoglobin 11.2 g/dl (14.0-18.0); Mean Corpuscular Hemoglobin 29.9 pg (25.0-34.0); Mean Corpuscular Hgb Conc 32.8 g/dL (32.0-36.0); Mean Corpuscular Volume 90.9 fL (80.0-100.0); Mean Platelet Volume 10.8 fL (9.4-12.4); Platelet Count 296 K/uL (130-400); RDW Coefficient of Variation 14.6 % (11.5-14.5); RDW Standard Deviation 47.9 fL (36.4-46.3); Red Blood Count 3.75 M/uL (4.70-6.10); White Blood Count 10.69 K/ul (4.8-10.8)
[2025-01-17 08:32] LABS: INR 3.9 (0.9-1.1); Prothrombin Time 37.1 Seconds (9.0-12.0)
[2025-01-17 08:56] LABS: Albumin Globulin Ratio 1.3 (0.9-2); Albumin Level 2.9 gm/dl (3.4-5.0); BUN Creatinine Ratio 14.3 (10-20); Bilirubin,Total 2.2 mg/dl (0.2-1.0); Creatinine Clr Calc Pharmacy 38.7 ml/min; Globulin 2.3 gm/dl (2.5-4.0); Magnesium 1.8 mg/dl (1.7-2.4); Phosphorus 2.9 mg/dl (2.5-4.9); Total Protein 5.2 gm/dl (6.0-8.3)
--- NOTE | 2025-01-17 10:52 | Pharmacy Report ---
Pharmacy PK ABX Note - Date of Service January 17, 2025 - Assessment and Plan Assessment 84 year old M receiving vancomycin for treatment of E. faecium bacteremia. * Pertinent microbiologic data includes: blood culture from 01/16 growing gram + cocci in chains; PCR detected E. faecium. * Presented with leukocytosis but improved on today's labs, afebrile, tachycardic and procalcitonin of 1.15 ng/mL. Day # 1 of antimicrobial therapy. Plan Vancomycin * Loading dose: 1250 mg IV x 1 * Maintenance dose: 1000 mg IV every 24 hours * Regimen is predicted to achieve target AUC/OVI of 400-600 mg/L.hr * Random level will be ordered in the next 48-72 hours or as clinically necessary. Pharmacy will continue to follow and will adjust dose/frequency as necessary. Thank you. Pharmacy has transitioned to AUC monitoring for vancomycin. AUC/OVI is the preferred PK/PD target and is associated with decreased risk of nephrotoxicity compared to traditional trough targets.
--- NOTE | 2025-01-17 13:51 | Hospitalist Progress Note ---
Date of Service January 17, 2025 Assessment & Plan (1) Intractable abdominal pain: (2) Primary adenocarcinoma of pancreatic duct: (3) Metastatic adenocarcinoma: (4) Permanent atrial fibrillation: Plan Mr. Mcfarlane is an 84 year old, male with with history of chronic diastolic failur e, atrial fibrillation/flutter on warfarin, hypertension, hyperlipidemia, coronary artery disease status post CABG in 1990 and [place] s/p PCI x3 stents in 2011, metastatic pancreatic cancer presented to [facility] ED due to uncontrolled pain 2/2 metastatic disease. Potentially pain crisis likely given misunderstanding of instructions, therefore will resume MS contin BID and the oxycodone 5-10mg [id number] prn for breakthrough. Uncontrolled cancer related pain Pancreatic adenocarcinoma with metastatic disease Transaminitis S/P AXIOS stent placement with GI on 01/05/25 Established with palliative, seeming miscommunication from what is documented v what patient & understoof Continue home MS Contin BID Continue with Oxycodone 5-10mg q4 prn for mild/mod pain Narcan prn bowel regimen PT/OT Palliative consult: help guide family discussions and further pain regimen diet as tolerated Leukocytosis Thrombocytosis possible sepsis, given lactate, WBC,tachycardia no suspected source, suspect progression of malignancy chronically elevated WBC suspect lactate 2/2 poor po, wbc and tachycardia 2/2 malignancy monitor on tele UA and blood cultures ordered low threshold to resume abx repeta lactate gentle IVF for now relative hypotension CAD s/p CABG HTN hold home lisinopril and amlodipine, consider discontinuation based upon pain meds and bp continue coreg with hold parameters hold ASA and statin for now, consider resuming based on dispo planning (hospice v HH) Severe protein calorie malnutrition, about 20lb weight loss recently likely iso malignancy Prefers strawberry protein beverage, nutrition consult persistent a fib on AC on 2mg MWF, and 4mg all other days in the evening continue 2mg warfarin starting tomorrow based upon am trend INR in am Depression continue carbamazepine ER DVT ppx coumadin admit med surg DNR/DNI per bedside discussion with and patient Admission and Anticipated Discharge Date Admission Date: January 16, 2025 Subjective Pt was seen in the AM, sitting in a chair near the bed Denied acute concerns, stated that his pain was 0 at the time Adult son and at bedside Review of Systems Review of Systems: All systems reviewed & are unremarkable except as noted in Subjective Physical Exam Physical Exam: General: Alert, oriented. No acute distress Psych: Appropriate mood and affect HEENT: NC/AT CV: irregular Resp: Breath sounds clear bilaterally, no increased effort of breathing Abdomen: Soft, nontender Extremities: No edema in lower extremities bilaterally. Results & Data Results & Data Vital Signs (Past 12 Hours) Vital Signs Temp Pulse Resp BP BP Pulse Ox O2 Del Method 01/17/25 08:01 36.6 C 16 110/64 97 Room Air 01/17/25 07:57 Room Air 01/17/25 07:49 36.7 C 55 L 16 119/65 96 Room Air
[2025-01-17] MEDS: VANCOMYCIN HCL 1,000 MG/270 ML BAG IV SCH (20:39)
[2025-01-18 07:26] LABS: Basophils # (auto) 0.09 K/uL (0.00-0.20); Basophils % (auto) 0.9 %; Eosinophils # (auto) 0.65 K/uL (0.00-0.50); Eosinophils % (auto) 6.4 %; Hemoglobin 11.3 g/dl (14.0-18.0); Immature Granulocytes # (auto) 0.07 K/uL (0.01-0.20); Immature Granulocytes % (auto) 0.7 %; Lymphocytes # (auto) 1.39 K/uL (1.20-3.40); Lymphocytes % (auto) 13.6 %; Mean Corpuscular Hemoglobin 29.7 pg (25.0-34.0); Mean Corpuscular Hgb Conc 32.3 g/dL (32.0-36.0); Mean Corpuscular Volume 91.9 fL (80.0-100.0); Mean Platelet Volume 10.7 fL (9.4-12.4); Monocytes # (auto) 0.61 K/uL (0.11-0.59); Neutrophils # (auto) 7.41 K/uL (1.40-6.50); Neutrophils % (auto) 72.4 %; Platelet Count 286 K/uL (130-400); RDW Coefficient of Variation 14.4 % (11.5-14.5); RDW Standard Deviation 48.3 fL (36.4-46.3); Red Blood Count 3.81 M/uL (4.70-6.10); White Blood Count 10.22 K/ul (4.8-10.8)
[2025-01-18 08:12] LABS: Albumin Globulin Ratio 1.1 (0.9-2); Albumin Level 2.9 gm/dl (3.4-5.0); BUN Creatinine Ratio 12.8 (10-20); Bilirubin,Total 0.9 mg/dl (0.2-1.0); Calcium 8.1 mg/dl (8.6-10.3); Creatinine Clr Calc Pharmacy 39.7 ml/min; Globulin 2.6 gm/dl (2.5-4.0); Magnesium 1.7 mg/dl (1.7-2.4); Phosphorus 2.8 mg/dl (2.5-4.9); Potassium 3.9 mmol/L (3.5-5.1); Total Protein 5.5 gm/dl (6.0-8.3)
--- NOTE | 2025-01-18 13:40 | Hospitalist Progress Note ---
Date of Service January 18, 2025 Assessment & Plan (1) Intractable abdominal pain: (2) Primary adenocarcinoma of pancreatic duct: (3) Metastatic adenocarcinoma: (4) Permanent atrial fibrillation: Plan Mr. Mcfarlane is an 84 year old, male with with history of chronic diastolic failur e, atrial fibrillation/flutter on warfarin, hypertension, hyperlipidemia, coronary artery disease status post CABG in 1990 and [place] s/p PCI x3 stents in 2011, metastatic pancreatic cancer presented to [facility] ED due to uncontrolled pain 2/2 metastatic disease. Uncontrolled cancer related pain Pancreatic adenocarcinoma with metastatic disease Transaminitis S/P AXIOS stent placement with GI on 01/05/25 Established with palliative, seeming miscommunication from what is documented v what patient & understoof Continue home MS Contin BID Continue with Oxycodone 5-10mg q4 prn for mild/mod pain Narcan prn bowel regimen PT/OT Palliative consult: help guide family discussions and further pain regimen. On 01/18-Had palliative care meeting and initially wanted hospice but then changed desires to going home with home health services. diet as tolerated, family notes he is to be on a soft diet due to pancreatic stents, he gets severe abdominal pain when eating more solid food Bacteremia Possible UTI possible sepsis, given lactate, WBC,tachycardia Blood cx from admission currently growing Enterococcus in 2/4 bottles UA repeated pending Repeat blood cultures on 01/18 pending Echo pending ID consulted, appreciate recs Continue IV vancomycin at this time, follow up on sensitivities Supratherapeutic INR Home warfarin on hold, follow INR persistent a fib on AC on warfarin 2mg MWF, and 4mg all other days in the evening warfarin currently on hold as noted above continue coreg INR in am relative hypotension CAD s/p CABG HTN hold home lisinopril and amlodipine, consider discontinuation based upon pain meds and bp continue coreg with hold parameters hold ASA and statin for now, consider resuming based on dispo planning (hospice v HH) Severe protein calorie malnutrition, about 20lb weight loss recently likely iso malignancy Prefers strawberry protein beverage, nutrition consult Depression continue carbamazepine ER DVT ppx coumadin admit med surg DNR/DNI per bedside discussion with and patient Admission and Anticipated Discharge Date Admission Date: January 16, 2025 Subjective Pt was seen with family at bedside Had palliative care meeting and initially wanted hospice but then changed desires to going home with home health services CM assisting with setting up HH Agreeable to working up bacteremia further Wants enemas to help him poop Review of Systems Review of Systems: All systems reviewed & are unremarkable except as noted in Subjective Physical Exam Physical Exam: General: Alert, oriented. No acute distress Psych: Appropriate mood and affect HEENT: NC/AT CV: irregular Resp: Breath sounds clear bilaterally, no increased effort of breathing Abdomen: Soft, nontender Extremities: No edema in lower extremities bilaterally. Results & Data Results & Data Vital Signs (Past 12 Hours) Vital Signs Temp Pulse Resp BP Pulse Ox O2 Del Method 01/18/25 07:54 36.8 C 73 16 159/79 H 97 Room Air
[2025-01-18 13:45] LABS: INR 3.4 (0.9-1.1); Prothrombin Time 33.1 Seconds (9.0-12.0)
[2025-01-18] MEDS: SOD PHOSPHATE/SOD BIPHOSPHATE ENEMA 132 ML BTL PR PRN (14:36)
[2025-01-18 18:15] LABS: Appearance Urine Clear (Clear); Bacteria Urine Automated None Seen (None Seen); Bilirubin Urine Negative (Negative); Blood Urine Negative (Negative); Cast Urine Automated 0-2 /lpf (0-2); Color Urine Yellow; Epithelial Cell Urine Auto 0-2 /hpf (0-2); Glucose Urine UA Negative (Negative); Ketones Urine Negative (Negative); Leukocyte Esterase Urine Negative (Negative); Nitrite Urine Negative (Negative); Protein Urine Trace (Negative); RBC Urine Automated 0-2 /hpf (0-2); Specific Gravity Urine 1.009 (1.000-1.030); Urobilinogen Urine Negative (Negative); WBC Urine Automated 0-5 /hpf (0-5)
--- NOTE | 2025-01-18 18:41 | Palliative Family Discussion ---
Date of Service January 18, 2025 Patient Directed Conference Time of Meetin-11am Participants: Jennifer Zhang DNP Patient participation: at times, he is still forgetful/drifting off at times Patient Support System: and son from [facility] Other Healthcare Provider Participation: None Meeting Location: bedside Advanced Directive available: Yes - pt is clear on DNR/DNI status and he wants to return home, he is not interested in SNF/rehab A face to face ACP family meeting was held for JACQUELYN LAY. This meeting was necessary for determining the appropriate course of treatment. Topics of Discussion Topics of Discussion: 1. We discussed his met pancreatic cancer, declining PS, weakness/frailty, worsening cancer pain and poor oral intake/inc pain with oral intake.Dr. Nicole has not been able to offer chemo due to frailty/poor PS and weakness. He had offered a follow up appt to see if pt could improve in a few weeks time but things have continued to decline. Pt is not taking much PO, it creates more pain when he tries to eat. He has a limited understanding and insight into his cancer, stating "i just figured I would to to that cancer place and they'd take care of it, you know? give me some medicine everyday for however long and get rid of it." He cannot explain to me a clear understanding of his met pancreatic cancer. 2. We discussed he has an incurable cancer. Chemo is not an option now given his weakness/PS/decline. We reviewed 's concerns and worries reported on this admission that she cannot / does not feel she is able to safely meet his needs alone at home. Their son states he has an appt with [facility] today to get some private caregivers in place to help offset burden on pt . 3. has been asking about hospice this admission: I provided education about the hospice benefit: an interdisciplinary program offered by nurses, nurses aides, social workers, chaplains and a ophthalmic medical assistant for patients with a terminal condition and a life expectancy of less than 6 months. This is covered by Medicare at 100%/no out of pocket expense to patient and all meds/supplies needed by patient for the reason they are on hospice are paid for/covered by hospice. The goal is assure quality of life of the patient in their home setting (home, longterm, inpatient hospice setting) by providing symptoms management, psychosocial and spiritual support. However, they cannot offer 24 hours care and if the family is unable to provide that care, they will have to consider personal care with out of pocket cost vs. longterm placement. We discussed the goals of hospice as a patient service and the goals of care; we discussed EOL trajectories and transitions barby the emotional impact of realizing mortality as a concrete reality from prior abstract considerations. Pt was reassured that no matter where they are along this trajectory, they are not alone - their medical team will remain by their side through their journey. Discussed the pros/cons of accepting help when especially weakened and distressed by pain-which would also help provide relief/decrease caregiver burden/strain. Other Content of Meetin. Opportunity given for participants to speak and ask questions. 2. Participants were assured of attention to patient comfort. 3. Reassurance provided. 4. Support was provided for informed, good-hyun decisions. 5. Emotions expressed by family were acknowledged and addressed. 6. Follow-up Outpatient; prn as desired 7. Plan of Care: pt and family states they are leaning towards home with hospice. [facility] preferred. Son is especially interested in assuring pt has some help and respite time for her own self care and well being. He shares that his MIL has been on hospice for a non cancer reason for about 1.5 yrs and is doing so much better "they are trying to kick her off hospice now." He reports hospice has been a great service to his MIL and really enhanced their ability to care for her and keep her at home. They want to call their other son who lives in [place] before making final decisions. 8. They were advised prognosis overall is poor, likely 6mos or less. They are all clear about not wanting him spending this time in a hospital. They also agree they need more help at home barby the "safety net" of organizational effectiveness director/after hours support. They will update care mgt by noon today. TS: 75min Thank you for allowing us to participate in the ongoing care of this patient. Please page with any additional concerns. Jeffery Zhang DNP Director, Palliative Medicine
[2025-01-18] MEDS: DOCUSATE SODIUM 100 MG CAP PO SCH (20:29)
[2025-01-19 07:10] LABS: Basophils % (auto) 1.1 %; Eosinophils # (auto) 0.57 K/uL (0.00-0.50); Hematocrit (blood only) 35.5 % (42.0-52.0); Hemoglobin 11.8 g/dl (14.0-18.0); Immature Granulocytes # (auto) 0.07 K/uL (0.01-0.20); Immature Granulocytes % (auto) 0.7 %; Lymphocytes # (auto) 1.58 K/uL (1.20-3.40); Lymphocytes % (auto) 16.6 %; Mean Corpuscular Hemoglobin 29.9 pg (25.0-34.0); Mean Corpuscular Hgb Conc 33.2 g/dL (32.0-36.0); Mean Corpuscular Volume 89.9 fL (80.0-100.0); Mean Platelet Volume 10.9 fL (9.4-12.4); Monocytes # (auto) 0.55 K/uL (0.11-0.59); Monocytes % (auto) 5.8 %; Neutrophils # (auto) 6.64 K/uL (1.40-6.50); Neutrophils % (auto) 69.8 %; Platelet Count 329 K/uL (130-400); RDW Coefficient of Variation 14.1 % (11.5-14.5); RDW Standard Deviation 46.6 fL (36.4-46.3); Red Blood Count 3.95 M/uL (4.70-6.10); White Blood Count 9.51 K/ul (4.8-10.8)
[2025-01-19 07:33] LABS: Albumin Globulin Ratio 1.2 (0.9-2); BUN Creatinine Ratio 10.1 (10-20); Bilirubin,Total 0.8 mg/dl (0.2-1.0); Calcium 8.2 mg/dl (8.6-10.3); Creatinine Clr Calc Pharmacy 43.7 ml/min; Globulin 2.5 gm/dl (2.5-4.0); Magnesium 1.8 mg/dl (1.7-2.4); Phosphorus 3.3 mg/dl (2.5-4.9); Potassium 3.6 mmol/L (3.5-5.1); Total Protein 5.5 gm/dl (6.0-8.3)
[2025-01-19 07:46] LABS: INR 2.7 (0.9-1.1); Prothrombin Time 26.6 Seconds (9.0-12.0)
--- NOTE | 2025-01-19 08:46 | Hospitalist Progress Note ---
Date of Service January 19, 2025 Assessment & Plan (1) Intractable abdominal pain: (2) Primary adenocarcinoma of pancreatic duct: (3) Metastatic adenocarcinoma: (4) Sepsis: (5) Bacteremia: (6) Permanent atrial fibrillation: (7) HTN (hypertension): (8) CAD (coronary artery disease): (9) Bipolar 1 disorder: Plan 84 year old male with PMH significant for permanent A fib on warfarin, hypertension, hyperlipidemia, CAD s/p CABG (1990) and [place] s/p PCI x3 stents (2011), bipolar 1 disorder, and metastatic pancreatic cancer presented to [facility] ED due to uncontrolled pain 2/2 metastatic disease and is admitted for this and septic bacteremia. Uncontrolled cancer related pain Pancreatic adenocarcinoma with metastatic disease Follows with Dr Nicole of Heme/Onc and Dr Edwards of Palliative Medicine outpatient Continue home MS Contin BID Oxycodone 5-10mg q4 prn for mild/mod pain Narcan PRN Bowel regimen PT/OT consults recommending home health/family support Palliative care meeting on 01/18 with decision for home health services Sepsis Bacteremia Patient meets criteria for sepsis on admission with tachycardia and leukocytosis Blood cultures from 01/16 positive for Enterococcus faecium Repeat blood cultures on 01/18 pending with NGTD Echo negative for valvular vegetation ID consulted: appreciate recs Continue IV ampicillin per pharmacy Vancomycin discontinued per pharmacy Supratherapeutic INR On warfarin 2mg MWF, 4mg all other days in evening INR 2.7 today Resume warfarin at 2mg today Monitor PT/INR tomorrow am Permanent atrial fibrillation Follows with Cardiology last seen 12/10/2024 Continue Coreg per home dosing Resume warfarin 01/19 as above Hypertension Follows with Cardiology last seen 12/10/2024 Lisinopril and amlodipine initially held for hypotension Resume amlodipine on 01/19 per home dosing Monitor BPs Consider resume lisinopril tomorrow if still hypertensive CAD s/p CABG, hx [place] s/p stent Hyperlipidemia Follows with Cardiology last seen 12/10/2024 Baby aspirin and statin initially held pending dispo Resume baby aspirin and statin per home dosing Severe protein calorie malnutrition About 20lb weight loss recently likely due to metastatic disease Nutrition consulted Bipolar 1 disorder Continue carbamazepine ER per home dosing DVT Prophylaxis: On Coumadin Code Status: DNR/DNI PCP: Luis Espinoza Disposition: Approved for [email or web address] starting Friday but awaiting ID recs for duration of abx therapy Patient seen in collaboration with Dr Monreal. Please see addendum. I spent a total of 60 minutes coordinating, documenting and providing care for this patient excluding time spent in the performance of separately billed services or time spent by another provider/QHP. Admission and Anticipated Discharge Date Admission Date: January 16, 2025 Supervising Physician Co-Signing Physician Notes I have reviewed the advanced practitioner's documentation, and I agree with, and take responsibility for the plan of care I spent a total of 30 minutes coordinating, documenting, and providing care for this patient excluding time spent in the performance of separately billed services. All of the aforementioned completed while collaborating with the assigned advanced practitioner for a full treatment plan Subjective Patient seen sitting up in bed Reports abdominal bloating/bubbling but not pain like before No other acute concerns Denies headaches, chest pain, SOB, abdominal pain, N/V/D Review of Systems Review of Systems: All systems reviewed & are unremarkable except as noted in Subjective Physical Exam Physical Exam: General/Psych: WD/WN, sitting up in bed, NAD, conversing easily Head: normocephalic, atraumatic Eyes: normal inspection, PERRL, conjunctivae pink ENT: external ear and nose normal, oropharynx normal Neck: normal visual inspection, trachea midline Respiratory: normal respiratory effort, lungs clear to auscultation, no wheeze/rales/rhonchi, no accessory muscle use Cardiovascular: regular rate and rhythm, no murmur/rub/gallop, no JVD Extremities: no cyanosis or clubbing, normal peripheral pulses, no BLE edema Abdomen/GI: hyperactive bowel sounds, soft, nontender Neurologic/MSK: A+Ox3, motor strength 5/5, moves all extremities Skin: no rashes, normal color, warm and dry Results & Data Results & Data Vital Signs (Past 12 Hours) Vital Signs Temp Pulse Resp BP Pulse Ox O2 Del Method 01/19/25 07:40 36.9 C 68 16 177/84 H 98 Room Air Laboratory Results Short CBC 01/19/25 Range/Units 06:27 WBC 9.51 (4.8-10.8) K/ul Hgb 11.8 L (14.0-18.0) g/dl Hct 35.5 L (42.0-52.0) % Plt Count 329 (130-400) K/uL BMP 01/19/25 06:27 Sodium 140 Potassium 3.6 Chloride 107 Carbon Dioxide 27 BUN 10 Creatinine 0.99 Glucose 109 H Calcium 8.2 L Liver Function 01/19/25 Range/Units 06:27 Total Bilirubin 0.8 (0.2-1.0) mg/dl AST 32 (13-39) U/L ALT 63 H (7-52) U/L Alkaline Phosphatase 355 H (34-104) U/L Albumin 3.0 L (3.4-5.0) gm/dl Urine 01/18/25 Range/Units 18:00 Urine Color Yellow Urine Appearance Clear (Clear) Urine pH 5.0 (4.5-7.5) Ur Specific [place] 1.009 (1.000-1.030) Urine Protein Trace H (Negative) Urine Glucose (UA) Negative (Negative) I have independently reviewed and interpreted patient's labs including CBC, CMP, PTT, PT/INR, mag, phos. Medications Administered Current Inpatient Medications Acetaminophen (Acetaminophen 325 Mg Tab) 650 mg PO Q4H PRN PRN Reason: pain/fever Stop: 02/15/25 18:21 Carbamazepine (Carbamazepine Xr 200 Mg Tabcr) 200 mg PO HS EMELIA Stop: 02/15/25 20:59 Last Admin: 01/18/25 20:28 Dose: 200 mg Carbamazepine (Carbamazepine Xr 100 Mg Tabcr) 100 mg PO HS EMELIA Stop: 02/15/25 20:59 Last Admin: 01/18/25 20:28 Dose: 100 mg Carvedilol (Carvedilol 6.25 Mg Tab) 6.25 mg PO BID EMELIA Stop: 02/15/25 20:59 Last Admin: 01/19/25 08:09 Dose: 6.25 mg Docusate Sodium (Docusate Sodium 100 Mg Cap) 100 mg PO BID EMELIA Stop: 02/17/25 20:59 Last Admin: 01/19/25 08:13 Dose: 100 mg Vancomycin HCl (Vancomycin Hcl) 1,000 mg in 270 mls @ 200 mls/hr IV Q24H EMELIA Stop: 01/31/25 21:59 Last Infusion: 01/18/25 22:24 Dose: Infused Latanoprost (Latanoprost 0.005% Op Soln 2.5 Ml Btl) 1 drops OPB HS EMELIA Stop: 02/15/25 20:59 Last Admin: 01/18/25 20:28 Dose: 1 drops Loratadine (Loratadine 10 Mg Tab) 10 mg PO QAM EMELIA Stop: 02/16/25 08:59 Last Admin: 01/19/25 08:09 Dose: 10 mg Meclizine HCl (Meclizine Hcl 25 Mg Tab) 25 mg PO TID PRN PRN Reason: Dizziness Stop: 02/15/25 18:21 Melatonin (Melatonin 3 Mg Tab) 3 mg PO HS PRN PRN Reason: Insomnia Stop: 02/15/25 18:21 Miscellaneous Information (Vancomycin Consult Active) 1 each N/A UD PRN PRN Reason: Consult Stop: 02/16/25 07:28 Morphine Sulfate (Morphine Sulfate Cr 15 Mg Tabcr) 15 mg PO BID [facility] Stop: 01/30/25 20:59 Last Admin: 01/19/25 08:13 Dose: 15 mg Naloxone HCl (Naloxone Hcl 0.4 Mg/1 Ml Vial/Carp) 0.1 mg IV Q5M PRN PRN Reason: Oversedation/Resp Depression Stop: 02/15/25 18:21 Ondansetron HCl (Ondansetron Inj 2 Mg/Ml 2 Ml Vial) 4 mg IV Q6H PRN PRN Reason: Nausea Stop: 02/15/25 18:21 Oxycodone HCl (Oxycodone Hcl Ir 5 Mg Tab (Immediate Release)) 5 - 10 mg PO Q4H PRN PRN Reason: Mild-Mod Pain (Scale 1-6) Stop: 01/30/25 18:21 Pantoprazole Sodium (Pantoprazole 40 Mg Tab) 40 mg PO DAILY [facility] Stop: 02/16/25 08:59 Last Admin: 01/19/25 08:09 Dose: 40 mg Polyethylene Glycol (Polyethylene (Miralax) 17 Gm Pack) 17 gm PO BID [facility] Stop: 02/15/25 20:59 Last Admin: 01/19/25 08:13 Dose: 17 gm Sodium Biphosphate/Sodium Phosphate (Sod Phosphate/Sod Biphosphate Enema 132 Ml Btl) 132 ml AR DAILY PRN PRN Reason: Constipation Stop: 02/17/25 14:00 Last Admin: 01/18/25 14:36 Dose: 132 ml Timolol Maleate (Timolol Maleate 0.5% Op Soln 5 Ml Btl) 1 drops OPL QAM [facility] Stop: 02/16/25 08:59 Last Admin: 01/19/25 08:10 Dose: 1 drops Warfarin Sodium (Warfarin Sod 2 Mg Tab) 2 mg PO DAILY@1600 [facility] Stop: 02/16/25 15:59
[2025-01-19] MEDS: AMPICILLIN 2,000 MG in SODIUM CHLOR 0.9% MINI-B 100 ML IV SCH (13:28)
[2025-01-19] MEDS: amLODIPine BESYLATE 5 MG TAB PO SCH (14:02)
--- NOTE | 2025-01-19 15:50 | Infectious Disease Consult ---
Date of Service January 19, 2025 Attending addendum This is an 84 y/o male w/ hx of metastatic pancreatic Ca s/p AXIOS stent placement (01/05/25), severe malnutrition, chronic diastolic HF, A fib on warfarin, HTN, HLD, and CAD s/p CABG (1990), who presented to [facility] on 01/16/25 for uncontrolled intra abd pain. Found to have bacteremia w/ amp-S E faecium (2 of 4). No fever but leukocytosis on admission. No chemo port or prosthetic valve in place. UA negative. ABX vancomycin iv -> ampicillin iv. UA (01/16): WBC 0-5 Blood cx (01/16): E faecium (2 of 4: S to amp, dapto, linez, pcn, vanco) Blood cx (01/18): NGTD CT A/P (01/16): 1. Similar size of the masslike lesions seen throughout the head of the pancreas. Significant pancreatic ductal dilatation. The mass is seen to occlude the SMV, with numerous collaterals throughout the mesentery. There is near complete circumferential contact of the SMA. 2. Interval placement of a gastrojejunal stent, with interval decompression of the stomach. 3. Scattered aortocaval mildly prominent lymph nodes, are not significantly changed, either reactive or metastatic. TTE (01/18): no vegetation Assessment: Amp-S E faecium bacteremia Hx of severe malnutrition, and metastatic pancreatic Ca s/p AXIOS stent placement (01/05/25) The source of Enterococcus is unclear: perhaps, GI translocation in the setting on the known metastatic pancreatic CA. He does not appear to have any other apparent source at this time. Echo did not show any obvious evidence of IE. No chem/mediport in place. No hx of valve replacement. No skin/wound present. No evidence of skin infection. No evidence of UTI. Recommendations: - I agree w/ ampicillin 2 gm iv q6 hours - F/u repeat blood cultures - If the repeat blood cultures again show Enterococcus, need CIRILO for further evaluation - Will continue to provide final rec During this patient encounter, one or more of the following was provided in addition to my in person visit: disease transmission risk assessment and mitigation; public health investigation, analysis, and testing; and/or complex antimicrobial therapy counseling and treatment. I spent a total of 82 minutes coordinating, documenting, and providing care for this patient excluding time spent in the performance of separately billed services or time spent by another provider/QHP. Telehealth Information I performed this visit using a real-time telehealth connection between my location and the patients location ([facility]). After connecting through interactive tele-video, patient was identified by name and date of and/or wristband check.Patient (or authorized healthcare service representative) was informed that this was a telemedicine visit and it was being conducted confidentially over secure lines. My office door was closed and no one else was present in the room with me.Patient (or authorized healthcare service representative) provided consent to proceed with the visit, expressed an understanding of privacy and security of the telemedicine visit, and gave permission to have a hospital service representative in the room in order to assist with the visit and to conduct portions of the visit, as needed. I informed the patient (or authorized healthcare service representative) that I reviewed their record and presented the opportunity for them to ask any questions regarding the visit today. The patient agreed to participate. Assessment & Plan (1) Bacteremia: Plan: The origin of the Enterococcus infection is uncertain; it may be due to gastrointestinal translocation related to the patient's known metastatic pancreatic cancer. Currently, there is no other apparent source identified. (2) Primary adenocarcinoma of pancreatic duct: Plan: - history of metastatic pancreatic CA status post axial stent placement 01/05/2025 Plan - Continue ampicillin at 2 g IV every 6 hours - Follow up the repeat blood cultures - If Enterococcus is again present in the repeat blood cultures, a transesophageal echocardiogram (CIRILO) will be necessary for further assessment - final antibiotic recommendations remain pending - Infectious Disease will continue to follow the patient History of Present Illness History of Present Illness Mr. Mcfarlane is an 84-year-old male with a complex medical history, including chronic diastolic heart failure, atrial fibrillation/flutter on warfarin, hypertension, hyperlipidemia, coronary artery disease status post coronary artery bypass grafting (CABG) in 1990, and myocardial infarction status post percutaneous coronary intervention (PCI) with three stents in 2011. He also has metastatic pancreatic cancer, which has led to significant complications. The patient initially presented to the emergency department on 01/03/2025 with worsening abdominal pain, nausea, vomiting, and no bowel movements, attributed to a small bowel obstruction (SBO) secondary to a newly diagnosed pancreatic mass. Imaging revealed a large infiltrative mass in the pancreatic head/uncinate process, consistent with primary adenocarcinoma, causing obstruction and dilation of the pancreatic and common bile ducts, with duodenal and vascular involvement. The mass was classified as [id number] by endosonographic criteria after an EGD and EUS on 12/24/2024. A biliary sphincterotomy was performed, and a covered metal stent was placed in the common bile duct. Pathology showed atypical epithelial cells suspicious for adenocarcinoma and elevated CEA levels. Due to the patient's poor surgical candidacy, he underwent gastrojejunostomy (GJ) stent placement, which he tolerated well, allowing him to progress to a mechanical soft diet. On 01/10/2025, he saw Dr. Nicole to assess whether his functional status could improve to consider further treatment options. He established care with palliative services on 01/12/2025 for enhanced pain management, transitioning to MS Contin 15 mg BID and oxycodone as needed.Complicating his situation, Mr. Mcfarlane developed signs of possible sepsis, with bacteremia indicated by Enterococcus faecium growth in 2 out of 4 blood culture bottles, elevated lactate, white blood cell count, and tachycardia. Repeat blood cultures have been sent and are no growth to date. TTE was negative for valvular vegetations. Urinalysis was normal. Patient is currently on ampicillin. Allergies Allergy/AdvReac Type Severity Reaction Status Date / Time pollen extracts Allergy Mild Sneezing Verified 01/16/25 14:27 Home Medications Medication Instructions Recorded Confirmed Type amlodipine 10 mg tablet 10 mg PO QAM 02/14/20 01/16/25 History latanoprost 0.005 % eye drops 1 drp OPB HS 02/14/20 01/16/25 History rosuvastatin 40 mg tablet (Crestor) 40 mg PO QPM 02/14/20 01/16/25 History aspirin 81 mg tablet,delayed 81 mg PO QAM #0 tabs 02/25/20 01/16/25 Rx release cholecalciferol (vitamin D3) 50 50 mcg PO QPM 08/07/21 01/16/25 History mcg (2,000 unit) capsule timolol maleate 0.5 % eye drops 1 drp OPL QAM 08/29/22 01/16/25 History carbamazepine 300 mg 300 mg PO HS 10/31/22 01/16/25 History capsule,extended release [id number] ketoconazole 2 % topical cream 1 applic topical DAILY 04/08/23 01/16/25 History carvedilol 6.25 mg tablet 6.25 mg PO AMHS 10/28/23 01/16/25 History lisinopril 20 mg tablet 20 mg PO BID 10/28/23 01/16/25 History loratadine 10 mg tablet 10 mg PO QAM 10/28/23 01/16/25 History meclizine 25 mg tablet 25 mg PO TID PRN Dizziness 10/28/23 01/16/25 History sildenafil 50 mg tablet 50 mg PO DIRECTED PRN Sexual 10/28/23 01/16/25 History Activity triamcinolone acetonide 0.1 % 1 applic topical BID PRN Skin 10/28/23 01/16/25 History topical cream Irritation warfarin 2 mg tablet See Rx Instructions .Route .COMPLEX 10/28/23 01/16/25 Hist ory potassium citrate 15 mEq (1,620 15 meq PO QAM #90 tabs 08/18/24 01/16/25 Rx mg) tablet,extended release omeprazole 40 mg capsule,delayed 40 mg PO DAILYBB 12/22/24 01/16/25 History release morphine 15 mg tablet,extended 15 mg PO BID 01/16/25 01/16/25 History release ondansetron HCl 4 mg tablet 4 mg PO Q6H PRN Nausea #30 tabs 01/18/25 Rx Patient History Medical History History of Mohs micrographic surgery for skin cancer FOREHEAD 01/2023 History of COVID-19 05/2022, home test, mild symptoms and cough>lasted 3 days>resolved. Inguinal hernia of left side without obstruction or gangrene Bladder outlet obstruction Follows with urology Skin cancer Follows derm History of nephrolithiasis HLD (hyperlipidemia) HTN (hypertension) On anticoagulant therapy Glaucoma Follows with eye doctor Depression Bipolar 1 disorder Surgical History Hx laparoscopic cholecystectomy (10/29/23) Laparoscopic Cholecystectomy - Bridget Hayes DO Hx of left cataract extraction Hx of right cataract extraction History of transurethral resection of prostate 06/14/21 [facility]: MAC. No issues per anesthesia postop progress note. History of colonoscopy History of cardioversion ~2011, [facility]; attempted, not successful "have been in a-fib ever since"; f/u dr galvin, [facility] History of vasectomy History of heart artery stent x 2 (both placed in 2011) History of cardiac cath PVI + stent (2011)-"had 3 minor heart attacks" History of cystoscopy History of coronary artery bypass graft 1990; follows with [facility] S/P appendectomy 1960 Family History Mother Myocardial infarction Father Cancer Multiple Myeloma Social History Smoking Status: Never smoker Tobacco Type: Cigarettes packs per day: 1; Second Hand Exposure: No; Do You Dip or Chew Tobacco: No; Hx Alcohol Use: No Hx Substance Use: No Preferred Language: Maltese Communication Ability: Effective Visual Impairment: No Limitations Tube Station Attendant Required: No Beliefs That Will Affect Care: None marital status: Current Living Situation: Spouse Current Living Situation Comment: lives with Jie current occupational status: retired How many Children do You have: 2 Feels Safe at Home: Yes Safety Concerns: Feels Safe At This Time Diet: regular during the past year weight has: remained stable Assistive Devices: None Review of Systems Constitutional: No Weight Change, No Fever, No Chills, No Night Sweats, No Fatigue, No Malaise ENT/Mouth: No Hearing Changes, No Ear Pain, No Nasal Congestion, No Sinus P ain, No Hoarseness, No sore throat, No Rhinorrhea, No Swallowing Difficulty Eyes: No Eye Pain, No Swelling, No Redness, No Foreign Body, No Discharge, No Vision Changes Cardiovascular: No Chest Pain, No SOB, No PND, No Dyspnea on Exertion, No Orthopnea, No Claudication, No Edema, No Palpitations Respiratory: No Cough, No Sputum, No Wheezing, No Smoke Exposure, No Dyspnea Gastrointestinal: abdominal pain with nausea and vomiting Genitourinary: No Dysmenorrhea, No DUB, No Dyspareunia, No Dysuria, No Urinary Frequency, No Hematuria, No Urinary Incontinence, No Urgency, No Flank Pain, No Urinary Flow Changes, No Hesitancy Musculoskeletal: No Arthralgias, No Myalgias, No Joint Swelling, No Joint Stiffness, No Back Pain, No Neck Pain, No Injury History Skin: No Skin Lesions, No Pruritis, No Hair Changes, No Breast/Skin Changes, No Nipple Discharge Neuro: No Weakness, No Numbness, No Paresthesias, No Loss of Consciousness, No Syncope, No Dizziness, No Headache, No Coordination Changes, No Recent Falls Psych: No Anxiety/Panic, No Depression, No Insomnia, No Personality Changes, No Delusions, No Rumination, No SI/HI/AH/VH, No Social Issues, No Memory Changes, No Violence/Abuse Hx., No Eating Concerns Heme/Lymph: No Bruising, No Bleeding, No Transfusions History, No Lymphadenopathy Endocrine: No Polyuria, No Polydipsia, No Temperature Intolerance Physical Exam could not be done as it was a video visit Results & Data Vital Signs (Past 12 Hours) Vital Signs Temp Pulse Resp BP Pulse Ox O2 Del Method 01/19/25 15:07 36.4 C L 65 16 164/83 H 97 Room Air 01/19/25 07:40 36.9 C 68 16 177/84 H 98 Room Air Laboratory Results 01/18/25 13:49 Aerobic Blood Culture - Preliminary Blood No growth in Aerobic bottle after 24 hours. Anaerobic Blood Culture - Preliminary No growth in Anaerobic bottle after 24 hours. 01/18/25 13:41 Aerobic Blood Culture - Preliminary Blood No growth in Aerobic bottle after 24 hours. Anaerobic Blood Culture - Preliminary No growth in Anaerobic bottle after 24 hours. 01/16/25 12:51 Aerobic Blood Culture - Final Blood Enterococcus faecium Anaerobic Blood Culture - Final Enterococcus faecium 01/16/25 12:58 Aerobic Blood Culture - Preliminary Blood No growth in Aerobic bottle after 48 hours. Anaerobic Blood Culture - Final 01/19/25 01/19/25 01/18/25 11:00 06:27 18:00 WBC 9.51 RBC 3.95 L Hgb 11.8 L Hct 35.5 L MCV 89.9 MCH 29.9 MCHC 33.2 RDW Std Deviation 46.6 H RDW Coeff of Bonnie 14.1 Plt Count 329 MPV 10.9 Immature Gran % (Auto) 0.7 Neut % (Auto) 69.8 Lymph % (Auto) 16.6 [place] % (Auto) 5.8 Eos % (Auto) 6.0 Baso % (Auto) 1.1 Neut # (Auto) 6.64 H Lymph # (Auto) 1.58 [place] # (Auto) 0.55 Eos # (Auto) 0.57 H Baso # (Auto) 0.10 Immature Gran # (Auto) 0.07 PT 26.6 H INR 2.7 H Sodium 140 Potassium 3.6 Chloride 107 Carbon Dioxide 27 Anion Gap 6 BUN 10 Creatinine 0.99 Est Cr Clr Drug Dosing 43.7 eGFR 75.58 BUN/Creatinine Ratio 10.1 Glucose 109 H Calcium 8.2 L Phosphorus 3.3 Magnesium 1.8 Total Bilirubin 0.8 AST 32 ALT 63 H Alkaline Phosphatase 355 H Total Protein 5.5 L Albumin 3.0 L Globulin 2.5 Albumin/Globulin Ratio 1.2 Urine Color Yellow Urine Appearance Clear Urine pH 5.0 Ur Specific [place] 1.009 Urine Protein Trace H Urine Glucose (UA) Negative Urine Ketones Negative Urine Blood Negative Urine Nitrite Negative Urine Bilirubin Negative Urine Urobilinogen Negative Ur Leukocyte Esterase Negative Urine WBC (Auto) 0-5 Urine RBC (Auto) 0-2 U Hyaline Cast (Auto) 0-2 U Epithel Cells (Auto) 0-2 Urine Bacteria (Auto) None Seen Urine Comment Random Vancomycin 12.6 Diagnostic Findings [place], [place] [phone] CT Scan Report Patient: JACQUELYN MCFARLANE Admit Date: 01/16/25 MR#: [id number] Address1: [address] [place] [address] Acct ID:[id number] Address2: Date: 1940 [facility] Zip: [place] [address] Age: 84 Location: ED Sex: M Room/Bed: Att Phy: Diagnosis: AB PAIN Karrie Phy: Luis Espinoza, DO Service Date: 01/16/25 Fam Phy: Interpreting Phy: Jeison Whipple DOAdmit Phy: Ordering Phy: Shellie Arceo MD cc: ~ EXAMINATION: CT of the abdomen and pelvis performed after the administration of IV contrast TECHNIQUE: Helical CT images from the lung bases through the symphysis pubis were obtained with contrast. Coronal and sagittal reformatted images were generated at a workstation for further assessment. Dose reduction techniques were achieved by using automatic exposure control and/or adjustment of mA and/or kV according to patient size and/or use of iterative reconstruction technique. COMPARISON: January 02, 2025 HISTORY: Abdominal pain FINDINGS: Lower chest: No consolidation. No pleural effusion or pneumothorax. Right basilar subsegmental atelectasis. Findings of significant cardiomegaly, with large mid of the right and left atria partially seen. Liver: No suspicious liver lesions. Portal veins appear patent. Diffuse prominent intrahepatic biliary ductal dilatation. Left lobe pneumobilia. A common bile duct stent is in place. Thickening and enhancement of the CBD wall, especially above the level of the stent. Gallbladder: Surgically absent Spleen: Normal size. Pancreas: A necrotic rim-enhancing mass is seen in the head of the pancreas anterior to the biliary stent, similar in size from prior, in the axial plane measuring 28 x 22 mm, series 3 image 130. An area of significant masslike density, anterior to the pancreas on image 147 is also seen, measuring 4.8 x 2.6 cm, also not significantly changed. Adrenal glands: No adrenal nodules. Kidneys: No hydronephrosis or obstructing renal stones. Several small cysts. Bladder / Pelvic organs: Unremarkable. Bowel: No bowel obstruction. No abnormal bowel wall thickening. The appendix is not seen. Several fluid-filled loops of nondilated small bowel suggestive of enteritis. Interval placement of a gastrojejunal stent, with decompression of the stomach which remains mildly distended and fluid-filled. There is a small hiatal hernia. There is prominent wall thickening circumferentially of the lower esophagus suggesting esophagitis. Lymph nodes: Mildly prominent, shotty appearing aortocaval lymph nodes, are not significantly changed, either reactive or metastatic. Peritoneum / Retroperitoneum: No free fluid or air within the abdomen. Vessels: No infrarenal aortic aneurysm. Heavy aortoiliac calcification.The mass is seen to occlude the SMV, with numerous collaterals seen throughout the mesentery. There is near complete circumferential contact of the SMA. Bones and soft tissues: No suspicious lesion in the bones. IMPRESSION: 1. Similar size of the masslike lesions seen throughout the head of the pancreas. Significant pancreatic ductal dilatation. The mass is seen to occlude the SMV, with numerous collaterals throughout the mesentery. There is near complete circumferential contact of the SMA. 2. Interval placement of a gastrojejunal stent, with interval decompression of the stomach. 3. Scattered aortocaval mildly prominent lymph nodes, are not significantly changed, either reactive or metastatic. Electronically signed by Jeison Whipple 01-16-2025 2:23 PM Medications Administered Home Medications Medication Instructions Recorded Confirmed Last Taken amlodipine 10 mg tablet 10 mg PO QAM 02/14/20 01/16/25 05/28/23 18:30 latanoprost 0.005 % eye drops 1 drp OPB HS 02/14/20 01/16/25 05/28/23 22:30 rosuvastatin 40 mg tablet (Crestor) 40 mg PO QPM 02/14/20 01/16/25 05/28/23 18:30 aspirin 81 mg tablet,delayed 81 mg PO QAM #0 tabs 02/25/20 01/16/25 05/28/23 08:00 release cholecalciferol (vitamin D3) 50 50 mcg PO QPM 08/07/21 01/16/25 05/28/23 18:30 mcg (2,000 unit) capsule timolol maleate 0.5 % eye drops 1 drp OPL QAM 08/29/22 01/16/25 05/29/23 06:00 carbamazepine 300 mg 300 mg PO HS 10/31/22 01/16/25 05/28/23 18:30 capsule,extended release [id number] ketoconazole 2 % topical cream 1 applic topical DAILY 04/08/23 01/16/25 Unknown carvedilol 6.25 mg tablet 6.25 mg PO AMHS 10/28/23 01/16/25 Unknown lisinopril 20 mg tablet 20 mg PO BID 10/28/23 01/16/25 Unknown loratadine 10 mg tablet 10 mg PO QAM 10/28/23 01/16/25 Unknown meclizine 25 mg tablet 25 mg PO TID PRN Dizziness 10/28/23 01/16/25 Unknown sildenafil 50 mg tablet 50 mg PO DIRECTED PRN Sexual 10/28/23 01/16/25 Unknown Activity triamcinolone acetonide 0.1 % 1 applic topical BID PRN Skin 10/28/23 01/16/25 Unknown topical cream Irritation warfarin 2 mg tablet See Rx Instructions .Route .COMPLEX 10/28/23 01/16/25 Unknown potassium citrate 15 mEq (1,620 15 meq PO QAM #90 tabs 08/18/24 01/16/25 Unknown mg) tablet,extended release omeprazole 40 mg capsule,delayed 40 mg PO DAILYBB 12/22/24 01/16/25 Unknown release morphine 15 mg tablet,extended 15 mg PO BID 01/16/25 01/16/25 01/16/25 release ondansetron HCl 4 mg tablet 4 mg PO Q6H PRN Nausea #30 tabs 01/18/25 Unknown Active Medications Generic Name Dose Route Start Last Admin Trade Name Freq PRN Reason Stop Dose Admin Amlodipine Besylate 10 mg 01/19/25 13:00 01/19/25 14:02 Amlodipine Besylate 5 Mg Tab PO 02/18/25 12:59 10 mg QAM EMELIA Administration Carbamazepine 200 mg 01/16/25 21:00 01/18/25 20:28 Carbamazepine Xr 200 Mg Tabcr PO 02/15/25 20:59 200 mg HS EMELIA Administration Carbamazepine 100 mg 01/16/25 21:00 01/18/25 20:28 Carbamazepine Xr 100 Mg Tabcr PO 02/15/25 20:59 100 mg HS EMELIA Administration Carvedilol 6.25 mg 01/16/25 21:00 01/19/25 08:09 Carvedilol 6.25 Mg Tab PO 02/15/25 20:59 6.25 mg BID EMELIA Administration Docusate Sodium 100 mg 01/18/25 21:00 01/19/25 08:13 Docusate Sodium 100 Mg Cap PO 02/17/25 20:59 100 mg BID EMELIA Administration Ampicillin Sodium 2,000 mg/ 100 mls @ 200 mls/hr 01/19/25 12:00 01/19/25 14:30 Sodium Chloride IV 02/02/25 11:59 Infused Q6H EMELIA Infusion Latanoprost 1 drops 01/16/25 21:00 01/18/25 20:28 Latanoprost 0.005% Op Soln 2.5 Ml Btl OPB 02/15/25 20:59 1 drops HS EMELIA Administration Loratadine 10 mg 01/17/25 09:00 01/19/25 08:09 Loratadine 10 Mg Tab PO 02/16/25 08:59 10 mg QAM EMELIA Administration Morphine Sulfate 15 mg 01/16/25 21:00 01/19/25 08:13 Morphine Sulfate Cr 15 Mg Tabcr PO 01/30/25 20:59 15 mg BID EMELIA Administration Pantoprazole Sodium 40 mg 01/17/25 09:00 01/19/25 08:09 Pantoprazole 40 Mg Tab PO 02/16/25 08:59 40 mg DAILY EMELIA Administration Polyethylene Glycol 17 gm 01/16/25 21:00 01/19/25 08:13 Polyethylene (Miralax) 17 Gm Pack PO 02/15/25 20:59 17 gm BID EMELIA Administration Sodium Biphosphate/Sodium Phosphate 132 ml 01/18/25 14:01 01/18/25 14:36 Sod Phosphate/Sod Biphosphate Enema 132 Ml Btl [place] 02/17/25 14:00 132 ml DAILY PRN Administration Constipation Timolol Maleate 1 drops 01/17/25 09:00 01/19/25 08:10 Timolol Maleate 0.5% Op Soln 5 Ml Btl OPL 02/16/25 08:59 1 drops QAM EMELIA Administration
[2025-01-19] MEDS: WARFARIN SOD 2 MG TAB PO SCH (15:56)
[2025-01-19] MEDS: MELATONIN 3 MG TAB PO PRN (19:51)
[2025-01-19] MEDS: ROSUVASTATIN CALCIUM 20 MG TAB PO SCH (20:12)
[2025-01-20 07:08] LABS: Basophils # (auto) 0.12 K/uL (0.00-0.20); Basophils % (auto) 1.2 %; Eosinophils # (auto) 0.68 K/uL (0.00-0.50); Eosinophils % (auto) 6.6 %; Hematocrit (blood only) 38.8 % (42.0-52.0); Hemoglobin 12.9 g/dl (14.0-18.0); Immature Granulocytes # (auto) 0.08 K/uL (0.01-0.20); Immature Granulocytes % (auto) 0.8 %; Lymphocytes # (auto) 1.57 K/uL (1.20-3.40); Lymphocytes % (auto) 15.1 %; Mean Corpuscular Hemoglobin 29.7 pg (25.0-34.0); Mean Corpuscular Hgb Conc 33.2 g/dL (32.0-36.0); Mean Corpuscular Volume 89.2 fL (80.0-100.0); Mean Platelet Volume 10.5 fL (9.4-12.4); Monocytes # (auto) 0.53 K/uL (0.11-0.59); Monocytes % (auto) 5.1 %; Neutrophils % (auto) 71.2 %; Platelet Count 350 K/uL (130-400); RDW Coefficient of Variation 14.2 % (11.5-14.5); RDW Standard Deviation 46.2 fL (36.4-46.3); Red Blood Count 4.35 M/uL (4.70-6.10); White Blood Count 10.38 K/ul (4.8-10.8)
[2025-01-20 07:34] LABS: Albumin Globulin Ratio 1.2 (0.9-2); Albumin Level 3.3 gm/dl (3.4-5.0); Bilirubin,Total 0.9 mg/dl (0.2-1.0); Calcium 8.5 mg/dl (8.6-10.3); Creatinine Clr Calc Pharmacy 48.1 ml/min; Globulin 2.8 gm/dl (2.5-4.0); Magnesium 1.8 mg/dl (1.7-2.4); Phosphorus 3.3 mg/dl (2.5-4.9); Potassium 3.6 mmol/L (3.5-5.1); Total Protein 6.1 gm/dl (6.0-8.3)
[2025-01-20 07:41] LABS: INR 1.8 (0.9-1.1); Prothrombin Time 18.8 Seconds (9.0-12.0)
--- NOTE | 2025-01-20 08:19 | Hospitalist Progress Note ---
Date of Service January 20, 2025 Assessment & Plan (1) Intractable abdominal pain: (2) Primary adenocarcinoma of pancreatic duct: (3) Metastatic adenocarcinoma: (4) Sepsis: (5) Bacteremia: (6) Permanent atrial fibrillation: (7) HTN (hypertension): (8) CAD (coronary artery disease): (9) Bipolar 1 disorder: Plan 84 year old male with PMH significant for permanent A fib on warfarin, hypertension, hyperlipidemia, CAD s/p CABG (1990) and TX s/p PCI x3 stents (2011), bipolar 1 disorder, and metastatic pancreatic cancer presented to [facility] ED due to uncontrolled pain 2/2 metastatic disease and is admitted for this and septic bacteremia. Uncontrolled cancer related pain Pancreatic adenocarcinoma with metastatic disease Follows with Dr Nicole of Heme/Onc and Dr Edwards of Palliative Medicine outpatient Continue home MS Contin BID Oxycodone 5-10mg q4 prn for mild/mod pain Narcan PRN Bowel regimen PT/OT consults recommending home health/family support Palliative care meeting on 01/18 with decision for home health services Sepsis Bacteremia Patient meets criteria for sepsis on admission with tachycardia and leukocytosis Blood cultures from 01/16 positive for Enterococcus faecium Repeat blood cultures on 01/18 prelim with NGTD Echo negative for valvular vegetation Continue IV ampicillin ID consulted: appreciate recs for IV ampicillin duration Plan for PICC tomorrow as long as repeat blood cultures remain negative Supratherapeutic INR On warfarin 2mg MWF, 4mg all other days in evening INR 1.8 today - warfarin at 4mg today Monitor PT/INR tomorrow am Permanent atrial fibrillation Follows with Cardiology last seen 12/10/2024 Continue Coreg per home dosing Resumed warfarin 01/19 as above Hypertension Follows with Cardiology last seen 12/10/2024 Lisinopril and amlodipine initially held for hypotension Resume amlodipine on 01/19 per home dosing Resume lisinopril on 01/20 per home dosing Monitor BPs CAD s/p CABG, hx TX s/p stent Hyperlipidemia Follows with Cardiology last seen 12/10/2024 Baby aspirin and statin initially held pending dispo Resume baby aspirin and statin per home dosing Severe protein calorie malnutrition About 20lb weight loss recently likely due to metastatic disease Nutrition consulted Bipolar 1 disorder Continue carbamazepine ER per home dosing DVT Prophylaxis: On Coumadin Code Status: DNR/DNI PCP: Luis Espinoza Disposition: Possible dc tomorrow. Approved for [facility] starting Friday. Patient seen in collaboration with Dr Monreal. Please see addendum. I spent a total of 60 minutes coordinating, documenting and providing care for this patient excluding time spent in the performance of separately billed services or time spent by another provider/QHP. Admission and Anticipated Discharge Date Admission Date: January 16, 2025 Supervising Physician Co-Signing Physician Notes I have reviewed the advanced practitioner's documentation, and I agree with, and take responsibility for the plan of care I spent a total of 30 minutes coordinating, documenting, and providing care for this patient excluding time spent in the performance of separately billed services. All of the aforementioned completed while collaborating with the assigned advanced practitioner for a full treatment plan Subjective Patient seen sitting up in bed No acute concerns today Denies fevers, chills, headaches, chest pain, SOB, abdominal pain, N/V/D, weakness Review of Systems Review of Systems: All systems reviewed & are unremarkable except as noted in Subjective Physical Exam Physical Exam: Gen/Psych: WD/WN, sitting up in bed, NAD, A&Ox3 HEENT: Normocephalic, atraumatic, conjunctivae pink, mucous membranes moist Lung: Clear to auscultation bilaterally, no wheezes/rales/rhonchi Heart: Regular rate and rhythm, no murmurs/rubs/gallops Extremities: Normal peripheral pulses, no edema Abdomen: Soft, NT, ND, +BS x 4 Skin: Warm and dry, no rash Results & Data Results & Data Vital Signs (Past 12 Hours) Vital Signs Temp Pulse Resp BP Pulse Ox O2 Del Method 01/20/25 07:10 36.7 C 68 20 181/75 H 97 Room Air Laboratory Results Short CBC 01/20/25 Range/Units 06:38 WBC 10.38 (4.8-10.8) K/ul Hgb 12.9 L (14.0-18.0) g/dl Hct 38.8 L (42.0-52.0) % Plt Count 350 (130-400) K/uL BMP 01/20/25 06:38 Sodium 140 Potassium 3.6 Chloride 105 Carbon Dioxide 27 BUN 9 Creatinine 0.90 Glucose 110 H Calcium 8.5 L Liver Function 01/20/25 Range/Units 06:38 Total Bilirubin 0.9 (0.2-1.0) mg/dl AST 29 (13-39) U/L ALT 54 H (7-52) U/L Alkaline Phosphatase 449 H (34-104) U/L Albumin 3.3 L (3.4-5.0) gm/dl I have independently reviewed and interpreted patient's labs including CBC, BMP, PTT, PT/INR, mag and phos. Medications Administered Current Inpatient Medications Acetaminophen (Acetaminophen 325 Mg Tab) 650 mg PO Q4H PRN PRN Reason: pain/fever Stop: 02/15/25 18:21 Amlodipine Besylate (Amlodipine Besylate 5 Mg Tab) 10 mg PO QAM [facility] Stop: 02/18/25 12:59 Last Admin: 01/19/25 14:02 Dose: 10 mg Aspirin (Aspirin 81 Mg Ectab) 81 mg PO QAM [facility]EL[facility] Stop: 02/19/25 08:59 Carbamazepine (Carbamazepine Xr 200 Mg Tabcr) 200 mg PO HS [facility]ELIA Stop: 02/15/25 20:59 Last Admin: 01/19/25 19:54 Dose: 200 mg Carbamazepine (Carbamazepine Xr 100 Mg Tabcr) 100 mg PO HS EMELIA Stop: 02/15/25 20:59 Last Admin: 01/19/25 19:52 Dose: 100 mg Carvedilol (Carvedilol 6.25 Mg Tab) 6.25 mg PO BID [facility]ELIA Stop: 02/15/25 20:59 Last Admin: 01/19/25 19:52 Dose: 6.25 mg Docusate Sodium (Docusate Sodium 100 Mg Cap) 100 mg PO BID [facility] Stop: 02/17/25 20:59 Last Admin: 01/19/25 19:51 Dose: 100 mg Ampicillin Sodium 2,000 mg/ (Sodium Chloride) 100 mls @ 200 mls/hr IV Q6H [facility] Stop: 02/02/25 11:59 Last Infusion: 01/20/25 06:28 Dose: Infused Latanoprost (Latanoprost 0.005% Op Soln 2.5 Ml Btl) 1 drops OPB HS [facility]ELIA Stop: 02/15/25 20:59 Last Admin: 01/19/25 19:54 Dose: 1 drops Lisinopril (Lisinopril 20 Mg Tab) 20 mg PO BID [facility] Stop: 02/19/25 08:59 Loratadine (Loratadine 10 Mg Tab) 10 mg PO QAM [facility] Stop: 02/16/25 08:59 Last Admin: 01/19/25 08:09 Dose: 10 mg Meclizine HCl (Meclizine Hcl 25 Mg Tab) 25 mg PO TID PRN PRN Reason: Dizziness Stop: 02/15/25 18:21 Melatonin (Melatonin 3 Mg Tab) 3 mg PO HS PRN PRN Reason: Insomnia Stop: 02/15/25 18:21 Last Admin: 01/19/25 19:51 Dose: 3 mg Morphine Sulfate (Morphine Sulfate Cr 15 Mg Tabcr) 15 mg PO BID [facility] Stop: 01/30/25 20:59 Last Admin: 01/19/25 19:50 Dose: 15 mg Naloxone HCl (Naloxone Hcl 0.4 Mg/1 Ml Vial/Carp) 0.1 mg IV Q5M PRN PRN Reason: Oversedation/Resp Depression Stop: 02/15/25 18:21 Ondansetron HCl (Ondansetron Inj 2 Mg/Ml 2 Ml Vial) 4 mg IV Q6H PRN PRN Reason: Nausea Stop: 02/15/25 18:21 Oxycodone HCl (Oxycodone Hcl Ir 5 Mg Tab (Immediate Release)) 5 - 10 mg PO Q4H PRN PRN Reason: Mild-Mod Pain (Scale 1-6) Stop: 01/30/25 18:21 Pantoprazole Sodium (Pantoprazole 40 Mg Tab) 40 mg PO DAILY [facility] Stop: 02/16/25 08:59 Last Admin: 01/19/25 08:09 Dose: 40 mg Polyethylene Glycol (Polyethylene (Miralax) 17 Gm Pack) 17 gm PO BID [facility] Stop: 02/15/25 20:59 Last Admin: 01/19/25 19:55 Dose: 17 gm Potassium Citrate (Potassium Citrate 10 Meq Tab) 10 meq PO QAM [facility] Stop: 02/19/25 08:59 Rosuvastatin Calcium (Rosuvastatin Calcium 20 Mg Tab) 40 mg PO QPM [facility] Stop: 02/18/25 20:59 Last Admin: 01/19/25 20:12 Dose: 40 mg Sodium Biphosphate/Sodium Phosphate (Sod Phosphate/Sod Biphosphate Enema 132 Ml Btl) 132 ml AL DAILY PRN PRN Reason: Constipation Stop: 02/17/25 14:00 Last Admin: 01/18/25 14:36 Dose: 132 ml Timolol Maleate (Timolol Maleate 0.5% Op Soln 5 Ml Btl) 1 drops OPL QAM [facility] Stop: 02/16/25 08:59 Last Admin: 01/19/25 08:10 Dose: 1 drops Warfarin Sodium (Warfarin Sod 2 Mg Tab) 2 mg PO DAILY@1600 [facility] Stop: 02/16/25 15:59 Last Admin: 01/19/25 15:56 Dose: Not Given
[2025-01-20] MEDS: ASPIRIN 81 MG ECTAB PO SCH (09:34)
[2025-01-20] MEDS: lisinopril 20 MG TAB PO SCH (09:36)
[2025-01-20] MEDS: POTASSIUM CITRATE 10 MEQ TAB PO SCH (09:37)
[2025-01-20] MEDS: WARFARIN SOD 4 MG TAB PO SCH (16:02)
[2025-01-21 07:27] LABS: Hematocrit (blood only) 36.5 % (42.0-52.0); Mean Corpuscular Hemoglobin 29.6 pg (25.0-34.0); Mean Corpuscular Hgb Conc 32.9 g/dL (32.0-36.0); Mean Corpuscular Volume 89.9 fL (80.0-100.0); Mean Platelet Volume 10.5 fL (9.4-12.4); Platelet Count 321 K/uL (130-400); Red Blood Count 4.06 M/uL (4.70-6.10)
[2025-01-21 07:35] VITALS: RESP 17; TEMP 98.4; O2SAT 96
[2025-01-21 07:42] LABS: BUN Creatinine Ratio 8.4 (10-20); Calcium 8.2 mg/dl (8.6-10.3); Creatinine Clr Calc Pharmacy 40.2 ml/min; Magnesium 1.9 mg/dl (1.7-2.4); Phosphorus 3.6 mg/dl (2.5-4.9); Potassium 3.8 mmol/L (3.5-5.1)
[2025-01-21 08:00] LABS: INR 1.9 (0.9-1.1); Prothrombin Time 19.4 Seconds (9.0-12.0)
[2025-01-21 09:08] VITALS: BP 174/83; PULSE 73
--- NOTE | 2025-01-21 11:50 | Discharge Summary ---
Discharge Summary Date of Service January 21, 2025 Principal Dx & Hospital Course #1 = Principal Diagnosis (1) Intractable abdominal pain: (2) Primary adenocarcinoma of pancreatic duct: (3) Metastatic adenocarcinoma: (4) Sepsis: (5) Bacteremia: (6) Permanent atrial fibrillation: (7) HTN (hypertension): (8) CAD (coronary artery disease): (9) Bipolar 1 disorder: Plan 84 year old male with PMH significant for permanent A fib on warfarin, hypertension, hyperlipidemia, CAD s/p CABG (1990) and OR s/p PCI x3 stents (2011), bipolar 1 disorder, and metastatic pancreatic cancer presented to [facility] ED due to uncontrolled pain 2/2 metastatic disease and was admitted for this and septic bacteremia. Patient was discharged home without home health services because he will be coming to [facility] MTU once daily for IV antibiotics for his bacteremia. Uncontrolled cancer related pain Pancreatic adenocarcinoma with metastatic disease Follows with Dr Nicole of Heme/Onc and Dr Edwards [facility] Palliative [facility] CT scan abdomen pelvis revealed similar masslike lesions throughout pancreas head with significant pancreatic ductal dilatation, placement of GJ stent, scattered lymph nodes Continue home MS Contin BID PT/OT consults recommending home health/family support Palliative care meeting on 01/18 with decision for home health services *Unable to send patient with home health services due to need for MTU for IV antibiotics *Encouraged patient to follow up with Dr Nicole after PET scan to discuss desires for hospice or home health after completion of MTU for IV antibiotics Sepsis Bacteremia Patient met criteria for sepsis on admission with tachycardia and leukocytosis Blood cultures from 01/16 positive for Enterococcus faecium Repeat blood cultures on 01/18 prelim with NGTD x48 hours Echo negative for valvular vegetation ID consulted and agreed to IV daptomycin 500mg q24hr for total of 14 days Midline catheter placed on 01/21/2025 and patient scheduled for MTU on Monday 01/22, Tuesday 01/23, Wednesday 01/24 at 0800 Supratherapeutic INR Takes warfarin 2mg MWF, 4mg all other days in evening INR 1.9 on 01/21/2025 Continue warfarin at home dosing Encourage patient to follow with anticoagulation clinic Permanent atrial fibrillation Follows with Cardiology Continue Coreg and warfarin per home dosing Hypertension Follows with Cardiology Lisinopril and amlodipine initially held for hypotension Resumed amlodipine on 01/19 per home dosing Resumed lisinopril on 01/20 per home dosing Patient having intermittent hypertension despite resumption of BP meds Recommend monitoring BPs outpatient and adjusting medications as indicated CAD s/p CABG, hx OR s/p stent Hyperlipidemia Follows with Cardiology Continue baby aspirin Hold statin while on IV daptomycin Severe protein calorie malnutrition About 20lb weight loss recently likely due to metastatic disease Bipolar 1 disorder Continue carbamazepine ER per home dosing Patient seen in collaboration with Dr Monreal. Please see addendum. Notes For Next Care Provider 84 year old male with significant PMH who presented to the ED on 01/16/2025 with abdominal pain likely secondary to metastatic cancer. His pain resolved while in the hospital but he was found to have bacteremia with enterococcus faecium. He was discharged to home with a midline catheter and arrangements to come to [facility] Medication Transfusion Unit every day until 01/31/2025 to receive once daily IV daptomycin for his bacteremia. He was instructed to hold his statin while on IV daptomycin. Recommend reviewing weekly labs especially CK while patient is on IV daptomycin. He initially wanted to be discharged from the hospital with home health services, but we are unable to do this in conjunction with daily need for MTU. Following his PET scan and appointment with Dr Nicole next week, patient will likely need to decide about desires for hospice care or home health services upon completion of IV antibiotics at MTU. Medication Changes From Visit -IV daptomycin 500mg q24hr for 10 more days (last day 01/31/2025) -Hold rosuvastatin until 02/01/2025 Admission HPI Per Admitting Provider Mr. Mcfarlane is an 84 year old, male with with history of chronic diastolic failure, atrial fibrillation/flutter on warfarin, hypertension, hyperlipidemia, coronary artery disease status post CABG in 1990 and OR s/p PCI x3 stents in 2011, metastatic pancreatic cancer presented to [facility] ED due to uncontrolled pain 2/2 metastatic disease. On 12/22/2024, patient presented with abdominal pain and CT revealed large infiltrative pancreatic head/uncinate process mass likely represents primary adenocarcinoma of the pancreas causing obstruction with dilation of the pancreatic and common bile ducts, as well as involvement of the duodenum with vascular involvement. On 12/24/2024 he had a EGD and EUS completed. EUS note a 36mm mass in the pancreatic head, [id number] by endosonographic criteria. A biliary sphincterotomy was performed. Cells for cytology obtained in the lower third of the main duct. One covered metal stent was placed into the common bile duct. Pathology consistent with atypical epithelial cells that were suspicious for adenocarcinoma and elevated CEA. Patient was admitted to the hospital on 01/03/2025 with a worsening abdominal pain with the vomiting and nausea and no bowel movements in the setting of SBO in the setting of a known new pancreatic mass. Patient was deemed not to be a surgical candidate so ultimately underwent GJ stent placement with GI. He tolerated this procedure well and now tolerates a mechanical soft diet. Patient saw Dr. Nicole on 01/10 with plans for follow up in two weeks to see if jose corbinhelder would increase functional status to be considered for treatment. Patient established with palliative care on 01/12 for better pain management. At that time, patient was transitioned to MS contin 15mg BID and with oxycodone prn. Patient was a bit confused and struggled to answer questions, alert, awake and oriented to self and somewhat situation. provided most of history. She states she was not sure she could give the oxycodone as needed, she was trying to see how the patient did with just the MS conitin, however, noted that in the evening his pain was uncontrolled then gave ms contin and oxycodone 10mg. She then tried to wait and gave ms contin in the morning, but pain was so severe it prompted presentation to the ED. Patient states better pain control on exam. He reports overall poor appetite, but does like the strawberry milkshakes. He denies nausea or vomiting. He thinks his last bowel movement was 1-2 days ago but he does not recall. Hospice was discussed with . She does note that she does not suspect the patient will make it to chemotherapy. She was open to hospice conversation and wishes to broach it with her two sons before making a decision. Patient did not take any other home medications this am In the ED, vitals were notable for BP of 90s-150s HR of 80-100s, and O2 sat of mid-high 90s on room air Imaging revealed ongoing disease burden of pancreas, lad, and GJ stent placement EKG a fib with controlled rate ED interventions: fentanyl 50mcg, zosyn, 1.5 L NS Patient to be admitted to med surg for further evaluation and management of u ncontrolled cancer pain Admission Exam Per Admitting Provider GENERAL APPEARANCE: AxOx1-2, chronically ill but no distress HEENT: NC, AT. MMM. EOMI, clear conjunctiva, oropharynx clear. NECK: Supple without lymphadenopathy. No stiffness or restricted ROM. HEART: irregularly irregular LUNGS: CTAB, moving air well however diminshed in bases ABDOMEN: Soft,mildly distended, nontender on exam BACK: No CVAT, no obvious deformity. EXTREMITIES: Without cyanosis, clubbing or edema. NEUROLOGICAL: Grossly nonfocal. Alert and oriented, moving all 4 extremities. CN not formally tested but appear grossly intact. Skin: Warm and dry without any ludwig, jaundice noted Discharge Exam Gen/Psych: WD/WN, sitting up in bed, NAD, A&Ox3 HEENT: Normocephalic, atraumatic, conjunctivae pink, mucous membranes moist Lung: Clear to auscultation bilaterally, no wheezes/rales/rhonchi Heart: Regular rate and rhythm, no murmurs/rubs/gallops Extremities: Normal peripheral pulses, no edema Abdomen: Soft, NT, ND, +BS x 4 Skin: Warm and dry, no rash Updated Medication List Medication Instructions Recorded Confirmed Type amlodipine 10 mg tablet 10 mg PO QAM 02/14/20 01/16/25 History latanoprost 0.005 % eye drops 1 drp OPB HS 02/14/20 01/16/25 History rosuvastatin 40 mg tablet (Crestor) 40 mg PO QPM 02/14/20 01/16/25 History aspirin 81 mg tablet,delayed 81 mg PO QAM #0 tabs 02/25/20 01/16/25 Rx release cholecalciferol (vitamin D3) 50 50 mcg PO QPM 08/07/21 01/16/25 History mcg (2,000 unit) capsule timolol maleate 0.5 % eye drops 1 drp OPL QAM 08/29/22 01/16/25 History carbamazepine 300 mg 300 mg PO HS 10/31/22 01/16/25 History capsule,extended release [id number] ketoconazole 2 % topical cream 1 applic topical DAILY 04/08/23 01/16/25 History carvedilol 6.25 mg tablet 6.25 mg PO AMHS 10/28/23 01/16/25 History lisinopril 20 mg tablet 20 mg PO BID 10/28/23 01/16/25 History loratadine 10 mg tablet 10 mg PO QAM 10/28/23 01/16/25 History meclizine 25 mg tablet 25 mg PO TID PRN Dizziness 10/28/23 01/16/25 History sildenafil 50 mg tablet 50 mg PO DIRECTED PRN Sexual 10/28/23 01/16/25 History Activity triamcinolone acetonide 0.1 % 1 applic topical BID PRN Skin 10/28/23 01/16/25 History topical cream Irritation warfarin 2 mg tablet See Rx Instructions .Route .COMPLEX 10/28/23 01/16/25 History potassium citrate 15 mEq (1,620 15 meq PO QAM #90 tabs 08/18/24 01/16/25 Rx mg) tablet,extended release omeprazole 40 mg capsule,delayed 40 mg PO DAILYBB 12/22/24 01/16/25 History release morphine 15 mg tablet,extended 15 mg PO BID 01/16/25 01/16/25 History release Hospital Stay Data Consultations 01/16/25 15:28 ED Decision to Admit Stat 01/16/25 17:25 Consult Palliative Care Routine 01/18/25 13:30 Consult Infectious Diseases Routine Diagnostic Imagining Performed Abdomen/Pelvis CT 01/16/25 12:28 EXAMINATION: CT of the abdomen and pelvis performed after the administration of IV contrast TECHNIQUE: Helical CT images from the lung bases through the symphysis pubis were obtained with contrast. Coronal and sagittal reformatted images were generated at a workstation for further assessment. Dose reduction techniques were achieved by using automatic exposure control and/or adjustment of mA and/or kV according to patient size and/or use of iterative reconstruction technique. COMPARISON: January 02, 2025 HISTORY: Abdominal pain FINDINGS: Lower chest: No consolidation. No pleural effusion or pneumothorax. Right basilar subsegmental atelectasis. Findings of significant cardiomegaly, with large mid of the right and left atria partially seen. Liver: No suspicious liver lesions. Portal veins appear patent. Diffuse prominent intrahepatic biliary ductal dilatation. Left lobe pneumobilia. A common bile duct stent is in place. Thickening and enhancement of the CBD wall, especially above the level of the stent. Gallbladder: Surgically absent Spleen: Normal size. Pancreas: A necrotic rim-enhancing mass is seen in the head of the pancreas anterior to the biliary stent, similar in size from prior, in the axial plane measuring 28 x 22 mm, series 3 image 130. An area of significant masslike density, anterior to the pancreas on image 147 is also seen, measuring 4.8 x 2.6 cm, also not significantly changed. Adrenal glands: No adrenal nodules. Kidneys: No hydronephrosis or obstructing renal stones. Several small cysts. Bladder / Pelvic organs: Unremarkable. Bowel: No bowel obstruction. No abnormal bowel wall thickening. The appendix is not seen. Several fluid-filled loops of nondilated small bowel suggestive of enteritis. Interval placement of a gastrojejunal stent, with decompression of the stomach which remains mildly distended and fluid-filled. There is a small hiatal hernia. There is prominent wall thickening circumferentially of the lower esophagus suggesting esophagitis. Lymph nodes: Mildly prominent, shotty appearing aortocaval lymph nodes, are not significantly changed, either reactive or metastatic. Peritoneum / Retroperitoneum: No free fluid or air within the abdomen. Vessels: No infrarenal aortic aneurysm. Heavy aortoiliac calcification.The mass is seen to occlude the SMV, with numerous collaterals seen throughout the mesentery. There is near complete circumferential contact of the SMA. Bones and soft tissues: No suspicious lesion in the bones. IMPRESSION: 1. Similar size of the masslike lesions seen throughout the head of the pancreas. Significant pancreatic ductal dilatation. The mass is seen to occlude the SMV, with numerous collaterals throughout the mesentery. There is near complete circumferential contact of the SMA. 2. Interval placement of a gastrojejunal stent, with interval decompression of the stomach. 3. Scattered aortocaval mildly prominent lymph nodes, are not significantly changed, either reactive or metastatic. Electronically signed by Jeison Whipple 01-16-2025 2:23 PM Chest X-Ray 01/16/25 12:37 XR chest 1V portable HISTORY: 84 years-old Male Sepsis COMPARISON: 10/28/2023 TECHNIQUE: AP view of the chest FINDINGS: Cardiac silhouette is enlarged. Median sternotomy with mediastinal surgical clips. Pulmonary vascular congestion. No pneumothorax, pleural effusion or overt pulmonary edema. Chronic interstitial coarsening. Unchanged right paratracheal opacity, likely secondary to summation density. Degenerative changes of the shoulders and spine. IMPRESSION: Cardiomegaly with pulmonary vascular congestion. ACT 112: Negative or not required by law. The above report was generated using voice recognition software. It may contain grammatical, syntax or spelling errors. Electronically signed by: Kapil Hernandez M.D. 01/16/2025 1:43 PM Pending Results Patient Have Any Pending Studies at Discharge: No Discharge Instructions Given to Patient (Per Discharging Provider) You were admitted to the hospital for uncontrolled pain related to your cancer. You received pain medicine and your pain was resolved by the time of discharge. While hospitalized, we found an infection in your bloodstream. You will need 14 days of IV antibiotics to treat this infection. On the day of discharge, you had a special IV placed that you will go home with. You will come to the hospital once a day to the Medication Transfusion Unit to receive your daily dose of IV antibiotic. You will do this for 10 days with your last day being 01/31. You will have weekly labs drawn from your line and then the line will be removed after your last dose on 01/31. While on this IV antibiotic, it is important that you do not take your rosuvastatin. You may resume taking it after you have completed antibiotics on 02/01. During your hospitalization, your INR was found to be 3.9 so we held your warfarin. Warfarin was restarted on 01/19/2025 at your usual dosing of 2mg on MWF and 4mg on STRS. Your INR this morning was 1.9. Make sure you take your warfarin this afternoon. Please continue to follow with the anticoagulation clinic. You were initially going to be discharged with home health services, but we are unable to do this since you will be going to the Medication Transfusion Unit daily for IV antibiotics. We encourage you to have further discussion with Dr Nicole about your wishes after discussing the results of your PET scan and to work with your PCP for any hospice or home health needs after you are done going to the Medication Transfusion Unit. MEDICATION CHANGES: -IV daptomycin 500mg daily for 10 more days (last day 01/31/2025) -Do not take rosuvastatin while getting IV daptomycin - you may resume taking on 02/01/2025 SUMMARY OF TEST RESULTS: Blood culture positive for enterococcus faecium PENDING TEST RESULTS: Repeat blood cultures are preliminary negative x48 hours but final results are still pending RECOMMENDATIONS FOR FOLLOW-UP: Please come to the main entrance of the hospital tomorrow at 8:00am to receive your first dose of IV antibiotic Please follow up with your PCP as scheduled on 01/27/2025 at 1:40pm Please follow up with Palliative Care as scheduled on 01/26/2025 at 2:30pm Please follow up with your Oncologist as scheduled on 02/01/2025 at 11:00am OTHER INSTRUCTIONS: Seek medical attention if you have: * temperature above 101 * chest pain or trouble breathing * abdominal pain, nausea, vomiting * diarrhea, dark stools or bloody stools * any unanswered questions or concerns Call 911 if symptoms are severe. It has been a pleasure taking care of you. Please take care of yourself. If you have any questions regarding your recent hospitalization please contact [facility] and request Kandi Mosesist @ [phone]. Total Time Total Time Spent Total Time Spent (In Minutes): I spent a total of 35 minutes coordinating, documenting and providing care for this patient excluding time spent in the performance of separately billed services or time spent by another provider/QHP. Supervising Physician Co-Signing Physician Notes I have reviewed the advanced practitioner's documentation, and I agree with, and take responsibility for the plan of care I spent a total of 30 minutes coordinating, documenting, and providing care for this patient excluding time spent in the performance of separately billed services. All of the aforementioned completed while collaborating with the assigned advanced practitioner for a full treatment plan
[2025-01-21] MEDS: DAPTOmycin 500 MG in SYRINGE 0 ML IV SCH (12:05)
[2025-01-21] MEDS ORDERED: WARFARIN SOD 2 MG TAB PO SCH (16:00)
== END 2025-01-21 14:47 | disposition home or self-care (01) | DRG 435 ==
LOC: ED 12:00 → SUATTDRO 16:50 → 3W 16:50

== ENCOUNTER 2025-02-27 15:51 | Inpatient (IN) ==
--- NOTE | 2025-02-27 16:43 | Emergency Department Note ---
Impression & Plan Fall from standing, Right-sided chest pain, Multiple fractures of ribs, Pneumothorax on right ED Provider Note HISTORY OF PRESENT ILLNESS: Patient is an 84-year-old male presenting with right sided chest pain. Patient reports he was out for a walk when he lost his footing and tripped and fell, landing on his right knee and then striking his chest on the ground. Denies striking his head or loss of consciousness. He is on Coumadin. He denies any chest pain, shortness of breath or lightheadedness preceding the fall. He denies any numbness or tingling in his extremities. He has an abrasion to the right knee. He states that he was able to get up and get back to his house after his fall, but states that he is now having pain on the right side of his chest. Denies any shortness of breath. He denies any abdominal pain, nausea or vomiting. Denies any lightheadedness or dizziness. ROS: as above PHYSICAL EXAM: Primary Survey Airway: Intact Breathing: Normal, breath sounds equal bilaterally Circulation: Skin warm, distal pulses 2+, capillary refill less than 2 seconds Disability Pupils: Equal and reactive to light, 3 mm, brisk GCS: 15, E = 4, V=5, M= 6 Motor Function: Moves all extremities. Sensory: No deficits Secondary Survey GEN: Well developed and well-nourished HENT: Head: No external signs of trauma. Mouth/Throat: Midface stable. No malocclusion. Eyes: EOMI. Pupils are 3 mm, round and reactive bilaterally. Neck: No midline C-spine tenderness. No step-offs. Cardiovascular: Irregular rhythm. Pulses present in all 4 extremities. Pulmonary/Chest: BS equal bilaterally. Right anterior chest wall is diffusely tender to palpation. No evidence of flail chest or overlying ecchymosis. Abdomen: No tenderness or ecchymosis. Musculoskeletal: Pelvis: No instability. Back: No midline tenderness. No step-offs or deformities. Extremities: No gross deformities. Skin: Abrasion to right anterior knee. Neuro: No focal neurological deficits. GCS as above. Psych: Normal mood and affect. MDM: - Vitals signs stable. - History obtained via patient. History as above. - Chronic conditions affecting care: Afib; CAD (s/p CABG); HTN - Differential diagnoses include, but are not limited to: rib fracture; pneumothorax; pulmonary contusion; hemothorax - Order placed for continuous cardiac monitoring. At this time, monitor showed rate of 72 bpm with irregular rhythm, per my interpretation. - External medical records reviewed. Discharge summary dated 02/12/2025 was reviewed. Patient was admitted that time secondary to syncope which was believed to be due to symptomatic anemia. - EKG image interpreted by myself showed atrial fibrillation. Rate 64 bpm. QT 382. No acute ischemic changes. - Laboratory workup interpreted by myself showed normal WBC; chronic anemia (Hgb 9.5); therapeutic INR (2.4); stable electrolytes other than hypocalcemia (Ca 7.7); elevated AST (64); normal troponin; normal lipase - CXR image reviewed by myself is negative for any obvious rib fractures, per my interpretation. - Xray right knee noted to have chronic degenerative arthritis. Noted to have a mild suprapatellar joint effusion. - CT chest with IV contrast showed a small right-sided pneumothorax at the lung base, less than 10%. Noted to have bilateral pleural effusions. Noted to have mildly displaced fractures of the right 4th and 5th anterior ribs. - Patient saturating 99% on room air. He was given 1 g IV for pain management. Discussed case with pattern fitter on-call, Dr. Marquez, at 19:30. Recommended supplemental oxygen and repeat chest x-ray in 6 hours to assess for stability of pneumothorax. If stable, the patient can be discharged. - However, given patient's age and Coumadin usage, will admit to hospitalist for observation for 24 hours for repeat chest x-ray in the morning. - Patient placed on 3L NC. - Discussion was had with manager case management about patient's case and need for admission - Hospitalist, Dr. Cabello, consulted for admission - [facility] ASSESSMENT AND PLAN: Diagnosis: fall from standing; multiple rib fractures; pneumothorax on right; right-sided chest pain Plan: admit Past Med/Surg History Problem List (Updated 02/27/25 @ 19:35 by Shellie Arceo MD) Pneumothorax on right (Acute) Multiple fractures of ribs (Acute) Right-sided chest pain (Acute) Fall from standing (Acute) Counseling regarding goals of care Encounter for assessment of decision-making capacity Elevated INR (Acute) GI bleed (Acute) Anemia (Acute) Syncope (Acute) Supratherapeutic INR Upper GI bleed Acute anemia Bacteremia Counseling regarding advanced directives and goals of care Palliative care by specialist Weakness generalized Confusion Cancer related pain Metastatic adenocarcinoma Primary adenocarcinoma of pancreatic duct Elevated lipase (Acute) Transaminitis (Acute) Elevated troponin (Acute) Elevated lactic acid level (Acute) Elevated procalcitonin (Acute) Leukocytosis (Acute) Sepsis (Acute) Intractable abdominal pain (Acute) BPH (benign prostatic hyperplasia) (Chronic) Asymptomatic hypertensive urgency Acute cholecystitis (Acute) H/O right inguinal hernia repair (05/29/23) Open Right Inguinal Hernia Repair with Mesh(Right) ; excision of cord lipoma- Kartik Tristan, Encounter for pre-operative examination Incarcerated right inguinal hernia Right inguinal hernia Right inguinal pain Bladder pain Nephrolithiasis (Acute) Subtherapeutic anticoagulation (Acute) A-fib (Acute) Hypertensive urgency (Acute) Atypical chest pain (Acute) Hypertensive urgency Permanent atrial fibrillation 2011-follows w/ [facility] cardio 12/2022 S/P left inguinal hernia repair (10/18/21) Open Left Inguinal Hernia Repair with Mesh and Excision of Cord Lipoma(Left) - Kartik Tristan DO 10/18/2021 Vitamin D deficiency History of nephrolithiasis Bipolar 1 disorder HTN (hypertension) DVT prophylaxis CAD (coronary artery disease) s/p CABG- 3 vessel (1990), PVI + stent (2011) History of VT (myocardial infarction) 1990, 2011x3 (had stent placed twice) Medical History Confusion Pancreatic cancer metastatic History of Mohs micrographic surgery for skin cancer FOREHEAD 01/2023 History of COVID-19 05/2022, home test, mild symptoms and cough>lasted 3 days>resolved. Inguinal hernia of left side without obstruction or gangrene Bladder outlet obstruction Follows with urology Skin cancer Follows derm History of nephrolithiasis HLD (hyperlipidemia) HTN (hypertension) On anticoagulant therapy Glaucoma Follows with eye doctor Depression Surgical History Hx laparoscopic cholecystectomy (10/29/23) Laparoscopic Cholecystectomy - Bridget Hayes DO Hx of left cataract extraction Hx of right cataract extraction History of transurethral resection of prostate 06/14/21 [facility]: MAC. No issues per anesthesia postop progress note. History of colonoscopy History of cardioversion ~2011, [facility]; attempted, not successful "have been in a-fib ever since"; f/u dr galvin, [facility] History of vasectomy History of heart artery stent x 2 (both placed in 2011) History of cardiac cath PVI + stent (2011)-"had 3 minor heart attacks" History of cystoscopy History of coronary artery bypass graft 1990; follows with [facility] S/P appendectomy 1960 Family History Mother Myocardial infarction Father Cancer Multiple Myeloma Social History Smoking Status: Never smoker Tobacco Type: Cigarettes packs per day: 1; Second Hand Exposure: No; Do You Dip or Chew Tobacco: No; Hx Alcohol Use: No Hx Substance Use: No Preferred Language: Maltese Communication Ability: Impaired Visual Impairment: No Limitations Gang Bore Operator Required: No Beliefs That Will Affect Care: None marital status: Current Living Situation: Spouse Current Living Situation Comment: lives with Jie current occupational status: retired How many Children do You have: 2 Feels Safe at Home: Yes Diet: regular during the past year weight has: remained stable Assistive Devices: None Allergies Allergies Allergy/AdvReac Type Severity Reaction Status Date / Time pollen extracts Allergy Mild Sneezing Verified 01/31/25 08:00 Home Meds Home Medications Medication Instructions Recorded Confirmed latanoprost 0.005 % eye drops 1 drp OPB HS 02/14/20 02/08/25 rosuvastatin 40 mg tablet (Crestor) 40 mg PO QDD 02/14/20 02/27/25 cholecalciferol (vitamin D3) 50 50 mcg PO QPM 08/07/21 02/08/25 mcg (2,000 unit) capsule timolol maleate 0.5 % eye drops 1 drp OPL QAM 08/29/22 02/08/25 carbamazepine 300 mg 300 mg PO HS 10/31/22 02/08/25 capsule,extended release [id number] ketoconazole 2 % topical cream 1 applic topical DAILY 04/08/23 02/08/25 carvedilol 6.25 mg tablet 6.25 mg PO AMHS 10/28/23 02/08/25 lisinopril 20 mg tablet 20 mg PO BID 10/28/23 02/08/25 meclizine 25 mg tablet 25 mg PO TID PRN Dizziness 10/28/23 02/08/25 triamcinolone acetonide 0.1 % 1 applic topical BID PRN Skin 10/28/23 02/08/25 topical cream Irritation warfarin 2 mg tablet See Rx Instructions .Route .COMPLEX 10/28/23 02/08/25 morphine 15 mg tablet,extended 15 mg PO TID 01/16/25 02/08/25 release oxycodone 5 mg tablet 5 mg PO Q4H PRN Breakthrough Pain 02/08/25 02/08/25 tramadol 50 mg tablet 50 mg PO Q6H PRN Severe Pain 02/08/25 02/08/25 (Scale Score 7-10) amlodipine 5 mg tablet 5 mg PO QAM 02/27/25 02/27/25 ondansetron HCl 8 mg tablet 8 mg PO Q8 PRN Nausea 02/27/25 02/27/25 Previous Rx's Medication Instructions Recorded aspirin 81 mg tablet,delayed 81 mg PO QAM #0 tabs 02/25/20 release ondansetron 4 mg disintegrating 4 mg PO Q6H PRN nausea and 01/21/25 tablet vomiting #30 tabs docusate sodium 100 mg capsule 100 mg PO BID #60 caps 02/12/25 (Colace) ferrous sulfate 325 mg (65 mg 325 mg PO QAM #30 tabs 02/12/25 iron) tablet,delayed release pantoprazole 40 mg tablet,delayed 40 mg PO BID #60 tabs 02/12/25 release polyethylene glycol 3350 17 17 g PO DAILY #119 grams 02/12/25 gram/dose oral powder (Miralax) Results & Data (ED) Vital Signs Vital Signs - 24 hr 02/27/25 15:53 02/27/25 16:10 02/27/25 16:27 Temperature 36.7 C Temperature Source Temporal Artery Scan Pulse Rate 75 77 75 Pulse Rate [Apical] Pulse Rate from SpO2 Sensor 74 Pulse Rhythm Pulse Rhythm [Apical] Pulse Strength [Apical] Respiratory Rate 20 25 H Respiratory Effort / Characteristics Non-Labored Spontaneous Respiratory Depth Normal Respiratory Pattern Regular Blood Pressure 115/77 Blood Pressure [Left Arm] Blood Pressure [Right Arm] Blood Pressure Mean 89 Blood Pressure Mean [Left Arm] Blood Pressure Mean [Right Arm] Blood Pressure Position Sitting Blood Pressure Position [Left Arm] Blood Pressure Position [Right Arm] Pulse Oximetry 97 100 Oxygen Delivery Method Room Air Room Air Oxygen Flow Rate Sepsis Recent Fever Within 48 Hours No Sepsis New/Unexplained Change in Mental Status N/A Sepsis Action Taken by Nursing No Action Required 02/27/25 16:30 02/27/25 16:38 02/27/25 17:00 Temperature Temperature Source Pulse Rate 69 81 Pulse Rate [Apical] Pulse Rate from SpO2 Sensor Pulse Rhythm Regular Pulse Rhythm [Apical] Pulse Strength [Apical] Respiratory Rate 14 16 Respiratory Effort / Characteristics Respiratory Depth Respiratory Pattern Blood Pressure 132/100 120/69 Blood Pressure [Left Arm] Blood Pressure [Right Arm] Blood Pressure Mean 106 84 Blood Pressure Mean [Left Arm] Blood Pressure Mean [Right Arm] Blood Pressure Position Blood Pressure Position [Left Arm] Blood Pressure Position [Right Arm] Pulse Oximetry 98 98 Oxygen Delivery Method Room Air Room Air Oxygen Flow Rate Sepsis Recent Fever Within 48 Hours Sepsis New/Unexplained Change in Mental Status Sepsis Action Taken by Nursing 02/27/25 18:00 02/27/25 19:00 02/27/25 19:00 Temperature 36.4 C L Temperature Source Oral Pulse Rate 72 Pulse Rate [Apical] 67 Pulse Rate from SpO2 Sensor 69 Pulse Rhythm Pulse Rhythm [Apical] Regular Pulse Strength [Apical] Normal Respiratory Rate 15 20 Respiratory Effort / Characteristics Non-Labored Spontaneous Respiratory Depth Normal Respiratory Pattern Regular Blood Pressure 106/67 Blood Pressure [Left Arm] 124/66 Blood Pressure [Right Arm] 124/66 Blood Pressure Mean 80 Blood Pressure Mean [Left Arm] 85 Blood Pressure Mean [Right Arm] 85 Blood Pressure Position Blood Pressure Position [Left Arm] Lying Blood Pressure Position [Right Arm] Lying Pulse Oximetry 99 99 Oxygen Delivery Method Room Air Room Air Oxygen Flow Rate Sepsis Recent Fever Within 48 Hours Sepsis New/Unexplained Change in Mental Status Sepsis Action Taken by Nursing 02/27/25 19:00 02/27/25 19:12 02/27/25 19:12 Temperature 36.4 C L Temperature Source Pulse Rate 77 Pulse Rate [Apical] Pulse Rate from SpO2 Sensor Pulse Rhythm Pulse Rhythm [Apical] Pulse Strength [Apical] Respiratory Rate 18 Respiratory Effort / Characteristics Respiratory Depth Respiratory Pattern Blood Pressure 124/66 Blood Pressure [Left Arm] Blood Pressure [Right Arm] Blood Pressure Mean Blood Pressure Mean [Left Arm] Blood Pressure Mean [Right Arm] Blood Pressure Position Blood Pressure Position [Left Arm] Blood Pressure Position [Right Arm] Pulse Oximetry 99 99 99 Oxygen Delivery Method Room Air Room Air Room Air Oxygen Flow Rate 0 Sepsis Recent Fever Within 48 Hours Sepsis New/Unexplained Change in Mental Status Sepsis Action Taken by Nursing Laboratory Data 02/27/25 15:35 02/27/25 15:35 Lab Results 02/27/25 Range/Units 15:35 WBC 6.94 (4.8-10.8) K/ul RBC 3.22 L (4.70-6.10) M/uL Hgb 9.5 L (14.0-18.0) g/dl Hct 29.5 L (42.0-52.0) % MCV 91.6 (80.0-100.0) fL MCH 29.5 (25.0-34.0) pg MCHC 32.2 (32.0-36.0) g/dL RDW Std Deviation 50.3 H (36.4-46.3) fL RDW Coeff of Bonnie 15.1 H (11.5-14.5) % Plt Count 283 (130-400) K/uL MPV 9.9 (9.4-12.4) fL Immature Gran % (Auto) 1.9 % Neut % (Auto) 71.8 % Lymph % (Auto) 16.7 % [place] % (Auto) 7.8 % Eos % (Auto) 1.4 % Baso % (Auto) 0.4 % Neut # (Auto) 4.98 (1.40-6.50) K/uL Lymph # (Auto) 1.16 L (1.20-3.40) K/uL [place] # (Auto) 0.54 (0.11-0.59) K/uL Eos # (Auto) 0.10 (0.00-0.50) K/uL Baso # (Auto) 0.03 (0.00-0.20) K/uL Immature Gran # (Auto) 0.13 (0.01-0.20) K/uL PT 24.4 H (9.0-12.0) Seconds INR 2.4 H (0.9-1.1) Sodium 139 (136-145) mmol/L Potassium 4.1 (3.5-5.1) mmol/L Chloride 108 H (98-107) mmol/L Carbon Dioxide 26 (21-32) mmol/L Anion Gap 5 (3-11) BUN 19 (6-23) mg/dl Creatinine 1.14 (0.6-1.4) mg/dl Est Cr Clr Drug Dosing Not Reportable eGFR 63.81 BUN/Creatinine Ratio 16.7 (10-20) Glucose 170 H (70-99(Fasting)) mg/dl Calcium 7.7 L (8.6-10.3) mg/dl Total Bilirubin 0.4 (0.2-1.0) mg/dl AST 64 H (13-39) U/L ALT 29 (7-52) U/L Alkaline Phosphatase 407 H (34-104) U/L Troponin I High Sens 13.2 (0-20) pg/ml Total Protein 5.3 L (6.0-8.3) gm/dl Albumin 2.7 L (3.4-5.0) gm/dl Globulin 2.6 (2.5-4.0) gm/dl Albumin/Globulin Ratio 1.0 (0.9-2) Lipase 16 (11-82) U/L Administered Medications Discontinued Medications Acetaminophen (Ofirmev) 1,000 mg in 100 mls @ 400 mls/hr IV NOW STA Stop: 02/27/25 19:23 Last Infusion: 02/27/25 19:39 Dose: Infused Documented By: Admin: 02/27/25 19:15 Dose: 400 mls/hr Documented By: IGOR Ioversol (Optiray 320 100ml) 93 ml IV ONCE ONE Stop: 02/27/25 17:31 Last Admin: 02/27/25 17:30 Dose: 93 ml Documented By: EDK Imaging Data Radiologist's Impression: Chest CT 02/27/25 16:32 EXAM: CT chest diagnostic w con CLINICAL HISTORY: R chest wall pain s/p fall. TECHNIQUE: Contiguous 3.[address] images of the chest were acquired with administration of 93ml Opitray-320mg/ml intravenous contrast. Coronal and sagittal reconstructions were obtained. IV contrast was administered for post-contrast images. One of the following dose reduction techniques was utilized for this exam: Automated exposure control, adjustment of the mA and/or kV according to patient size, and use of iterative reconstruction COMPARISON: Same day chest x-ray 02/27/2025 15:56:00 CUSTOMER SERVICE CASHIER was reviewed. FINDINGS: Lungs: Small right-sided pneumothorax (10%). Mild bilateral pleural effusion, with adjacent ground glass opacities. In the right, an air-space opacity is seen measuring about 1.3 cm. Another nodular measuring 0.7 mm is seen in the lingula. Subsegmental atelectasis in the middle lobe, lingula, and both lower lobes. Mediastinum: No mediastinal mass or abnormal lymphadenopathy. Normal appearance of the thymus. Hilar Structures: Normal size and configuration, no enlargement. Heart and Great Vessels: Cardiomegaly. No pericardial effusion. Normal caliber and course of the thoracic aorta and other great vessels. No significant atherosclerosis or aneurysm. Normal enhancement of the great vessels post-contrast. Pulmonary Arteries: No evidence of pulmonary embolism. Normal size and course of the pulmonary arteries. Esophagus: Normal course and caliber. No masses or dilatation. Bones: Mildly displaced fractures of the right 4th anterior and 5th lateral ribs. Chest Wall: Mild soft tissue emphysema in the right lateral chest wall at 4th and 5th rib levels. Degenerative changes in the spine. Upper Abdomen: Pneumobilia. Thyroid: Normal size and morphology. No nodules or masses. IMPRESSION: 1. Small right-sided pneumothorax at the lung base (10%). 2. Mild bilateral pleural effusion. 3. Ground-glass opacities in both lower lobes, with a 1.3 cm nodule in the right. Primary differential is contusion, in view of the history of trauma. Follow-up is advised. 4. Mildly displaced fractures of the right 4th anterior and 5th lateral ribs. 5. Mild soft tissue emphysema in the right lateral chest wall at 4th and 5th rib levels. 6. Another pulmonary nodule measuring 0.7 mm in the lingula. Advised follow-up. Electronically signed by Arsenio Red 02-27-2025 7:06 PM Chest X-Ray 02/27/25 16:32 EXAM: XR chest 1V portable CLINICAL HISTORY: Chest pain, nonspecific TECHNIQUE: portable X-ray image of the chest is obtained in AP projection. COMPARISON: 02/27/2025 FINDINGS: 1 Pulmonary Parenchyma: Hyperinflated lung see representing COPD No evidence of consolidation, collapse, or focal opacities. No pulmonary nodules are identified. No evidence of pleural effusion or pleural thickening. Heart and Mediastinum: Heart size appears enlarged. Prominent aortic arch with wall calcification. No mediastinal widening or masses. No hilar or mediastinal lymphadenopathy. Bony Thorax: Bony thorax appears intact without fractures or deformities. Soft Tissues: Soft tissues overlying the chest wall are unremarkable. Midline sternotomy wires. IMPRESSION: Hyperinflated lung see representing COPD Cardiomegaly. No interval changes. Electronically signed by Arsenio Red 02-27-2025 5:51 PM Knee X-Ray 02/27/25 16:32 EXAM: XR knee RT 3V CLINICAL HISTORY: R knee pain. S/p fall TECHNIQUE: X-ray images of the right knee were obtained in anteroposterior (AP), lateral, and sunrise/skyline (patellar) projections. COMPARISON: No prior studies available for comparison. FINDINGS: Bone Structure: Bone structure is normal and well-aligned. No evidence of acute fractures or dislocations. No osseous lesions or abnormalities identified. Joint Spaces: Joint space narrowing of the patellofemoral joint, with osteophyte formation. Articular Surfaces: Articular surfaces are smooth and intact. Patella: Patella is normal in position and alignment. No evidence of patellar dislocation or subluxation. Soft Tissues: Coarse calcifications noted at distal patellar tendon. Mild suprapatellar joint effusion. IMPRESSION: 1. 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 2. Chronic tendinitis of the distal patellar tendon. 3. Mild suprapatellar joint effusion. Disclaimer: A subtle bone abnormality or fracture may not be readily apparent on X-rays, thus clinical correlation and further imaging including follow-up CT, MRI, or follow-up X-rays are advised as needed. Electronically signed by Arsenio Red 02-27-2025 6:02 PM Discharge Plan Visit Data Chief Complaint: Trauma Stated Complaint: FALL, RIBS INJURY ED Provider: Shellie Arceo Discharge Problem: Fall from standing, Right-sided chest pain, Multiple fractures of ribs, Pneumothorax on right Condition: Fair Forms Stand Alone Forms: [facility] [employer] Prescriptions Prescriptions: No Action cholecalciferol (vitamin D3) 50 mcg (2,000 unit) capsule 50 mcg PO QPM ketoconazole 2 % cream 1 applic topical DAILY Rx Instructions: APPLY TO SCALP( SHAMPOO),AND BEHIND EARS, AND BACK OF NECK, LATHER, WAIT 5 MINUTES, THEN RINSE. latanoprost 0.005 % drops 1 drp OPB HS rosuvastatin [Crestor] 40 mg tablet 40 mg PO QDD Hold Instructions: Resume on 02/01/25. Hold until 02/01/2025 while getting IV daptomycin Rx Instructions: with dinner aspirin 81 mg Tablet,Delayed Release (Dr/Ec) 81 mg PO QAM Qty: 0 0RF timolol maleate 0.5 % Drops 1 drp OPL QAM Rx Instructions: left eye carbamazepine 300 mg capsule, ER multiphase 12 hr 300 mg PO HS carvedilol 6.25 mg tablet 6.25 mg PO AMHS lisinopril 20 mg tablet 20 mg PO BID warfarin 2 mg tablet See Rx Instructions .ROUTE .COMPLEX Hold Instructions: until follow up with Dr. Nicole on 02/16/25 Rx Instructions: TAKE 2MG EVERY FRIDAY/FRIDAY/FRIDAY. And 4mg all other days in the evening meclizine 25 mg Tablet 25 mg PO TID PRN (Reason: Dizziness) triamcinolone acetonide 0.1 % Cream 1 applic TOPICAL BID PRN (Reason: Skin Irritation) Rx Instructions: APPLY TO AFFECTED AREAS ON BILATERAL LEGS TWICE DAILY , NEEDED. tramadol 50 mg tablet 50 mg PO Q6H PRN (Reason: Severe Pain (Scale Score 7-10)) oxycodone 5 mg tablet 5 mg PO Q4H PRN (Reason: Breakthrough Pain) ferrous sulfate 325 mg (65 mg iron) Tablet,Delayed Release (Dr/Ec) 325 mg PO QAM Qty: 30 0RF pantoprazole 40 mg Tablet,Delayed Release (Dr/Ec) 40 mg PO BID Qty: 60 0RF docusate sodium [Colace] 100 mg capsule 100 mg PO BID Qty: 60 0RF polyethylene glycol 3350 [Miralax] 17 gram/dose powder 17 g PO DAILY Qty: 119 0RF amlodipine 5 mg tablet 5 mg PO QAM ondansetron HCl 8 mg tablet 8 mg PO Q8 PRN (Reason: Nausea) morphine 15 mg tablet extended release 15 mg PO TID Rx Instructions: ADMINISTERED AT 8AM, 3PM AND 9PM. ondansetron 4 mg tablet,disintegrating 4 mg PO Q6H PRN (Reason: nausea and vomiting) Qty: 30 0RF Referrals Referrals: Luis Espinoza DO [Primary Care Provider] -
[2025-02-27 16:47] LABS: Hematocrit (blood only) 29.5 % (42.0-52.0); Hemoglobin 9.5 g/dl (14.0-18.0); Immature Granulocytes # (auto) 0.13 K/uL (0.01-0.20); Immature Granulocytes % (auto) 1.9 %; Mean Corpuscular Hemoglobin 29.5 pg (25.0-34.0); Mean Corpuscular Volume 91.6 fL (80.0-100.0); Platelet Count 283 K/uL (130-400); RDW Standard Deviation 50.3 fL (36.4-46.3); Red Blood Count 3.22 M/uL (4.70-6.10); White Blood Count 6.94 K/ul (4.8-10.8)
[2025-02-27 17:05] LABS: Alanine Aminotransferase 29 U/L (7-52); Albumin Globulin Ratio 1.0 (0.9-2); Alkaline Phosphatase 407 U/L (34-104); Anion Gap 5 (3-11); Bilirubin,Total 0.4 mg/dl (0.2-1.0); Blood Urea Nitrogen 19 mg/dl (6-23); Calcium 7.7 mg/dl (8.6-10.3); Carbon Dioxide 26 mmol/L (21-32); Chloride 108 mmol/L (98-107); Globulin 2.6 gm/dl (2.5-4.0); Glucose 170 mg/dl (70-99(Fasting)); Lipase 16 U/L (11-82); Potassium 4.1 mmol/L (3.5-5.1); Sodium 139 mmol/L (136-145); Total Protein 5.3 gm/dl (6.0-8.3)
[2025-02-27 17:18] LABS: INR 2.4 (0.9-1.1); Prothrombin Time 24.4 Seconds (9.0-12.0)
[2025-02-27] MEDS: OPTIRAY 320 100ml IV ONE (17:30)
--- NOTE | 2025-02-27 17:52 | XRay Report ---
EXAM: XR chest 1V portable CLINICAL HISTORY: Chest pain, nonspecific TECHNIQUE: portable X-ray image of the chest is obtained in AP projection. COMPARISON: 02/27/2025 FINDINGS: 1 Pulmonary Parenchyma: Hyperinflated lung see representing COPD No evidence of consolidation, collapse, or focal opacities. No pulmonary nodules are identified. No evidence of pleural effusion or pleural thickening. Heart and Mediastinum: Heart size appears enlarged. Prominent aortic arch with wall calcification. No mediastinal widening or masses. No hilar or mediastinal lymphadenopathy. Bony Thorax: Bony thorax appears intact without fractures or deformities. Soft Tissues: Soft tissues overlying the chest wall are unremarkable. Midline sternotomy wires. IMPRESSION: Hyperinflated lung see representing COPD Cardiomegaly. No interval changes. Electronically signed by Arsenio Red 02-27-2025 5:51 PM
--- NOTE | 2025-02-27 18:03 | XRay Report ---
EXAM: XR knee RT 3V CLINICAL HISTORY: R knee pain. S/p fall TECHNIQUE: X-ray images of the right knee were obtained in anteroposterior (AP), lateral, and sunrise/skyline (patellar) projections. COMPARISON: No prior studies available for comparison. FINDINGS: Bone Structure: Bone structure is normal and well-aligned. No evidence of acute fractures or dislocations. No osseous lesions or abnormalities identified. Joint Spaces: Joint space narrowing of the patellofemoral joint, with osteophyte formation. Articular Surfaces: Articular surfaces are smooth and intact. Patella: Patella is normal in position and alignment. No evidence of patellar dislocation or subluxation. Soft Tissues: Coarse calcifications noted at distal patellar tendon. Mild suprapatellar joint effusion. IMPRESSION: 1. 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 2. Chronic tendinitis of the distal patellar tendon. 3. Mild suprapatellar joint effusion. Disclaimer: A subtle bone abnormality or fracture may not be readily apparent on X-rays, thus clinical correlation and further imaging including follow-up CT, MRI, or follow-up X-rays are advised as needed. Electronically signed by Arsenio Red 02-27-2025 6:02 PM
--- NOTE | 2025-02-27 19:06 | CT Scan Report ---
EXAM: CT chest diagnostic w con CLINICAL HISTORY: R chest wall pain s/p fall. TECHNIQUE: Contiguous 3.[address] images of the chest were acquired with administration of 93ml Opitray-320mg/ml intravenous contrast. Coronal and sagittal reconstructions were obtained. IV contrast was administered for post-contrast images. One of the following dose reduction techniques was utilized for this exam: Automated exposure control, adjustment of the mA and/or kV according to patient size, and use of iterative reconstruction COMPARISON: Same day chest x-ray 02/27/2025 15:56:00 HIM TECH was reviewed. FINDINGS: Lungs: Small right-sided pneumothorax (10%). Mild bilateral pleural effusion, with adjacent ground glass opacities. In the right, an air-space opacity is seen measuring about 1.3 cm. Another nodular measuring 0.7 mm is seen in the lingula. Subsegmental atelectasis in the middle lobe, lingula, and both lower lobes. Mediastinum: No mediastinal mass or abnormal lymphadenopathy. Normal appearance of the thymus. Hilar Structures: Normal size and configuration, no enlargement. Heart and Great Vessels: Cardiomegaly. No pericardial effusion. Normal caliber and course of the thoracic aorta and other great vessels. No significant atherosclerosis or aneurysm. Normal enhancement of the great vessels post-contrast. Pulmonary Arteries: No evidence of pulmonary embolism. Normal size and course of the pulmonary arteries. Esophagus: Normal course and caliber. No masses or dilatation. Bones: Mildly displaced fractures of the right 4th anterior and 5th lateral ribs. Chest Wall: Mild soft tissue emphysema in the right lateral chest wall at 4th and 5th rib levels. Degenerative changes in the spine. Upper Abdomen: Pneumobilia. Thyroid: Normal size and morphology. No nodules or masses. IMPRESSION: 1. Small right-sided pneumothorax at the lung base (10%). 2. Mild bilateral pleural effusion. 3. Ground-glass opacities in both lower lobes, with a 1.3 cm nodule in the right. Primary differential is contusion, in view of the history of trauma. Follow-up is advised. 4. Mildly displaced fractures of the right 4th anterior and 5th lateral ribs. 5. Mild soft tissue emphysema in the right lateral chest wall at 4th and 5th rib levels. 6. Another pulmonary nodule measuring 0.7 mm in the lingula. Advised follow-up. Electronically signed by Arsenio Red 02-27-2025 7:06 PM
[2025-02-27] MEDS: ACETAMINOPHEN 1,000 MG/100 ML VIAL IV STA (19:15)
[2025-02-27] MEDS ORDERED: CALCIUM GLUCONATE 1,000 MG/60 ML BAG IV SCH (20:00)
[2025-02-27] MEDS ORDERED: PROMETHAZINE 6.25 MG/50.25 ML BAG IV PRN (20:05)
[2025-02-27] MEDS ORDERED: ACETAMINOPHEN 325 MG TAB PO PRN (20:05)
[2025-02-27 20:31] LABS: Magnesium 1.9 mg/dl (1.7-2.4)
[2025-02-27] MEDS: LIDOCAINE 5% 1 PATCH TD SCH (20:52)
[2025-02-27] MEDS: carBAMazepine XR 100 MG TABCR PO SCH (22:20)
[2025-02-27] MEDS: TIMOLOL MALEATE 0.5% OP SOLN 5 ML BTL OPL SCH (22:20)
[2025-02-27] MEDS: LATANOPROST 0.005% OP SOLN 2.5 ML BTL OPB SCH (22:21)
[2025-02-27] MEDS: MoRPHine SULFATE CR 15 MG TABCR PO SCH (22:24)
[2025-02-27] MEDS: DOCUSATE SODIUM 100 MG CAP PO SCH (22:24)
[2025-02-27] MEDS: REMOVE LIDODERM PATCH SCH (23:43)
--- NOTE | 2025-02-28 00:15 | History & Physical Report ---
Date of Service February 27, 2025 (Late entry) Assessment & Plan (1) Pneumothorax on right: Plan: Assessment and plan below following discussion of case with ED provider and reviewing patient history/pertinent normal/abnormal diagnostic test results. Traumatic right pneumothorax Traumatic rib fractures Recurrent falls chronic diastolic failure (EF 55 to 60%, TTE 2024), patient euvolemic hx CAD status post CABG/stent A-fib on Coumadin, INR therapeutic valvular heart disease (mild to moderate MR/mild AR/TR) hypertension, stable hyperlipidemia, on statin Rx metastatic pancreatic cancer on chemotherapy chronic cancer pain on narcotics Hyperglycemia rule out DM past tobacco abuse OBS Admit to med/tele Supplemental O2 Pulmonology consult re: traumatic pneumothorax (ED provider already in touch with Dr. Marquez.) Recommends repeat x-ray after 6 hours. Hold Coumadin for now. Will ask a.m. provider to discuss risks of continuing anticoagulation with patient and in consideration of recurrent falls PT OT eval Check Hemoglobin A1c DVT prophylaxis. SCDs while Coumadin on hold DNR as per patient prior directives. electric motors salesperson for patient is Ms. Jie Mcfarlane (contact numbers [phone]). Text document was generated using [employer] voice recognition software. It may contain grammatical or spelling errors. Kindly contact undersigned for clarification of any documentation item in question. Admission and Anticipated Discharge Date Admission Date: February 27, 2025 History of Present Illness Chief Complaint: Fall Primary Care Provider: Luis Espinoza DO History obtained from patient and records. Medical history significant for chronic diastolic failure (EF 55 to 60%, TTE 2024), CAD status post CABG/stent, A-fib on Coumadin, valvular heart disease (mild to moderate MR/mild AR/TR), hypertension, hyperlipidemia, metastatic pancreatic cancer on chemotherapy, chronic cancer pain on narcotics, bipolar disorder, past tobacco abuse. Multiple admissions since December 2024. Recent confinement 2 weeks ago for syncope attributed to orthostasis and GI bleed. Coumadin held on discharge but eventually restarted outpatient. Patient went out of his house today wanting to walk around to get stronger. Patient lost footing and tripped landing on his right side. Achy right knee pain with some bruising/bleeding. Achy right chest pain with some SOB. Patient brought to ER by for evaluation. 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 Allergies Allergy/AdvReac Type Severity Reaction Status Date / Time pollen extracts Allergy Mild Sneezing Verified 01/31/25 08:00 Home Medications Medication Instructions Recorded Confirmed Type latanoprost 0.005 % eye drops 1 drp OPB HS 02/14/20 02/27/25 History rosuvastatin 40 mg tablet (Crestor) 40 mg PO QDD 02/14/20 02/27/25 History aspirin 81 mg tablet,delayed 81 mg PO QAM #0 tabs 02/25/20 02/27/25 Rx release cholecalciferol (vitamin D3) 50 50 mcg PO QPM 08/07/21 02/27/25 History mcg (2,000 unit) capsule timolol maleate 0.5 % eye drops 1 drp OPL QAM 08/29/22 02/27/25 History carbamazepine 300 mg 300 mg PO HS 10/31/22 02/27/25 History capsule,extended release [id number] carvedilol 6.25 mg tablet 6.25 mg PO AMHS 10/28/23 02/27/25 History lisinopril 20 mg tablet 20 mg PO AMPM 10/28/23 02/27/25 History warfarin 2 mg tablet See Rx Instructions .Route .COMPLEX 10/28/23 02/27/25 History morphine 15 mg tablet,extended 15 mg PO TID 01/16/25 02/27/25 History release ondansetron 4 mg disintegrating 4 mg PO Q6H PRN nausea and 01/21/25 02/27/25 Rx tablet vomiting #30 tabs oxycodone 5 mg tablet 5 mg PO Q4H PRN Breakthrough Pain 02/08/25 02/27/25 History tramadol 50 mg tablet 50 mg PO Q6H PRN Severe Pain 02/08/25 02/27/25 History (Scale Score 7-10) ferrous sulfate 325 mg (65 mg 325 mg PO QAM #30 tabs 02/12/25 02/27/25 Rx iron) tablet,delayed release pantoprazole 40 mg tablet,delayed 40 mg PO BID #60 tabs 02/12/25 02/27/25 Rx release amlodipine 5 mg tablet 5 mg PO QAM 02/27/25 02/27/25 History docusate sodium 100 mg capsule 100 mg PO AMHS 02/27/25 02/27/25 History (Colace) lidocaine-prilocaine 2.5 %-2.5 % 1 applic topical UD 02/27/25 02/27/25 History topical cream ondansetron HCl 8 mg tablet 8 mg PO Q8 PRN Nausea 02/27/25 02/27/25 History polyethylene glycol 3350 17 17 g PO QAM 02/27/25 02/27/25 History gram/dose oral powder (Miralax) prochlorperazine maleate 10 mg 10 mg PO Q6 PRN Nausea 02/27/25 02/27/25 History tablet Past Med/Surg History Problem List (Updated 02/27/25 @ 19:35 by Shellie Arceo MD) Pneumothorax on right (Acute) Multiple fractures of ribs (Acute) Right-sided chest pain (Acute) Fall from standing (Acute) Counseling regarding goals of care Encounter for assessment of decision-making capacity Elevated INR (Acute) GI bleed (Acute) Anemia (Acute) Syncope (Acute) Supratherapeutic INR Upper GI bleed Acute anemia Bacteremia Counseling regarding advanced directives and goals of care Palliative care by specialist Weakness generalized Confusion Cancer related pain Metastatic adenocarcinoma Primary adenocarcinoma of pancreatic duct Elevated lipase (Acute) Transaminitis (Acute) Elevated troponin (Acute) Elevated lactic acid level (Acute) Elevated procalcitonin (Acute) Leukocytosis (Acute) Sepsis (Acute) Intractable abdominal pain (Acute) BPH (benign prostatic hyperplasia) (Chronic) Asymptomatic hypertensive urgency Acute cholecystitis (Acute) H/O right inguinal hernia repair (05/29/23) Open Right Inguinal Hernia Repair with Mesh(Right) ; excision of cord lipoma- Kartik Tristan DO Encounter for pre-operative examination Incarcerated right inguinal hernia Right inguinal hernia Right inguinal pain Bladder pain Nephrolithiasis (Acute) Subtherapeutic anticoagulation (Acute) A-fib (Acute) Hypertensive urgency (Acute) Atypical chest pain (Acute) Hypertensive urgency Permanent atrial fibrillation 2011- w/ [facility] cardio 12/2022 S/P left inguinal hernia repair (10/18/21) Open Left Inguinal Hernia Repair with Mesh and Excision of Cord Lipoma(Left) - Kartik Tristan DO 10/18/2021 Vitamin D deficiency History of nephrolithiasis Bipolar 1 disorder HTN (hypertension) DVT prophylaxis CAD (coronary artery disease) s/p CABG- 3 vessel (1990), PVI + stent (2011) History of [place] (myocardial infarction) 1990, 2012x3 (had stent placed twice) Medical History Confusion Pancreatic cancer metastatic History of Mohs micrographic surgery for skin cancer FOREHEAD 01/2023 History of COVID-19 05/2022, home test, mild symptoms and cough>lasted 3 days>resolved. Inguinal hernia of left side without obstruction or gangrene Bladder outlet obstruction Follows with urology Skin cancer Follows derm History of nephrolithiasis HLD (hyperlipidemia) HTN (hypertension) On anticoagulant therapy Glaucoma Follows with eye doctor Depression Surgical History Hx laparoscopic cholecystectomy (10/29/23) Laparoscopic Cholecystectomy - Bridget Hayes DO Hx of left cataract extraction Hx of right cataract extraction History of transurethral resection of prostate 06/14/21 [facility]: MAC. No issues per anesthesia postop progress note. History of colonoscopy History of cardioversion ~2011, [facility]; attempted, not successful "have been in a-fib ever since"; f/u dr galvin, [facility] History of vasectomy History of heart artery stent x 2 (both placed in 2011) History of cardiac cath PVI + stent (2011)-"had 3 minor heart attacks" History of cystoscopy History of coronary artery bypass graft 1990; follows with [facility] S/P appendectomy 1960 Family History Mother Myocardial infarction Father Cancer Multiple Myeloma Social History Smoking Status: Never smoker Tobacco Type: Cigarettes packs per day: 1; Second Hand Exposure: No; Do You Dip or Chew Tobacco: No; Hx Alcohol Use: No Hx Substance Use: No Preferred Language: Kiswahili Communication Ability: Effective Visual Impairment: No Limitations Director Nicu Required: No Beliefs That Will Affect Care: None marital status: Current Living Situation: Spouse Current Living Situation Comment: lives with Jie current occupational status: retired How many Children do You have: 2 Other Information That Helps Us Care for You: No Feels Safe at Home: Yes Safety Concerns: Feels Safe At This Time Diet: regular during the past year weight has: remained stable Assistive Devices: Hearing Aid - Bilateral Review of Systems Review of Systems: As per HPI, all other systems reviewed and negative Physical Exam Physical Exam: GENERAL: Comfortable, underweight, no respiratory distress SKIN: pallor,, warm HEENT: Alopecia, pale palpebral conjunctivae, no ptosis, dry buccal mucosa NECK : Supple, no tenderness CHEST : Decreased breath sounds, minimal right chest wall tenderness HEART : Irregular, no obvious murmurs ABDOMEN: Some distention, no overt tenderness EXTREMITIES : Tender contusion right knee, no other conspicuous deformities noted NEUROLOGIC : Coherent, no facial asymmetry, no other gross focality Results & Data Results & Data Vital Signs (Past 12 Hours) Vital Signs Temp Pulse Pulse Resp BP BP BP 02/27/25 21:00 62 10 L 127/74 02/27/25 20:45 69 9 L 126/66 02/27/25 20:00 69 12 120/70 02/27/25 20:00 81 20 120/70 02/27/25 19:59 64 02/27/25 19:45 70 12 137/70 02/27/25 19:39 73 24 138/69 02/27/25 19:12 02/27/25 19:12 36.4 C L 77 18 124/66 02/27/25 19:09 69 7 L 124/66 02/27/25 19:00 02/27/25 19:00 36.4 C L 124/66 02/27/25 19:00 67 20 124/66 02/27/25 18:00 72 15 106/67 02/27/25 17:00 81 16 120/69 02/27/25 16:38 69 14 02/27/25 16:30 132/100 02/27/25 16:27 75 25 H 02/27/25 16:10 77 02/27/25 15:53 36.7 C 75 20 115/77 Pulse Ox O2 Del Method O2 Flow Rate 02/27/25 21:00 99 Room Air 02/27/25 20:45 96 02/27/25 20:00 99 02/27/25 20:00 98 Room Air 02/27/25 19:59 02/27/25 19:45 100 02/27/25 19:39 97 02/27/25 19:12 99 Room Air 02/27/25 19:12 99 Room Air 0 02/27/25 19:09 98 02/27/25 19:00 99 Room Air 02/27/25 19:00 02/27/25 19:00 99 Room Air 02/27/25 18:00 99 Room Air 02/27/25 17:00 98 Room Air 02/27/25 16:38 98 Room Air 02/27/25 16:30 02/27/25 16:27 100 Room Air 02/27/25 16:10 02/27/25 15:53 97 Room Air Laboratory Results Laboratory Results WBC 6.94 K/ul (4.8-10.8) 02/27/25 15:35 RBC 3.22 M/uL (4.70-6.10) L 02/27/25 15:35 Hgb 9.5 g/dl (14.0-18.0) L 02/27/25 15:35 Hct 29.5 % (42.0-52.0) L 02/27/25 15:35 MCV 91.6 fL (80.0-100.0) 02/27/25 15:35 MCH 29.5 pg (25.0-34.0) 02/27/25 15:35 MCHC 32.2 g/dL (32.0-36.0) 02/27/25 15:35 RDW Std Deviation 50.3 fL (36.4-46.3) H 02/27/25 15:35 RDW Coeff of Bonnie 15.1 % (11.5-14.5) H 02/27/25 15:35 Plt Count 283 K/uL (130-400) 02/27/25 15:35 MPV 9.9 fL (9.4-12.4) 02/27/25 15:35 Immature Gran % (Auto) 1.9 % 02/27/25 15:35 Neut % (Auto) 71.8 % 02/27/25 15:35 Lymph % (Auto) 16.7 % 02/27/25 15:35 [place] % (Auto) 7.8 % 02/27/25 15:35 Eos % (Auto) 1.4 % 02/27/25 15:35 Baso % (Auto) 0.4 % 02/27/25 15:35 Neut # (Auto) 4.98 K/uL (1.40-6.50) 02/27/25 15:35 Lymph # (Auto) 1.16 K/uL (1.20-3.40) L 02/27/25 15:35 [place] # (Auto) 0.54 K/uL (0.11-0.59) 02/27/25 15:35 Eos # (Auto) 0.10 K/uL (0.00-0.50) 02/27/25 15:35 Baso # (Auto) 0.03 K/uL (0.00-0.20) 02/27/25 15:35 Immature Gran # (Auto) 0.13 K/uL (0.01-0.20) 02/27/25 15:35 PT 24.4 Seconds (9.0-12.0) H 02/27/25 15:35 INR 2.4 (0.9-1.1) H 02/27/25 15:35 Sodium 139 mmol/L (136-145) 02/27/25 15:35 Potassium 4.1 mmol/L (3.5-5.1) 02/27/25 15:35 Chloride 108 mmol/L (98-107) H 02/27/25 15:35 Carbon Dioxide 26 mmol/L (21-32) 02/27/25 15:35 Anion Gap 5 (3-11) 02/27/25 15:35 BUN 19 mg/dl (6-23) 02/27/25 15:35 Creatinine 1.14 mg/dl (0.6-1.4) 02/27/25 15:35 Est Cr Clr Drug Dosing Not Reportable 02/27/25 15:35 eGFR 63.81 02/27/25 15:35 BUN/Creatinine Ratio 16.7 (10-20) 02/27/25 15:35 Glucose 170 mg/dl (70-99(Fasting)) H 02/27/25 15:35 Calcium 7.7 mg/dl (8.6-10.3) L 02/27/25 15:35 Magnesium 1.9 mg/dl (1.7-2.4) 02/27/25 15:35 Total Bilirubin 0.4 mg/dl (0.2-1.0) 02/27/25 15:35 AST 64 U/L (13-39) H 02/27/25 15:35 ALT 29 U/L (7-52) 02/27/25 15:35 Alkaline Phosphatase 407 U/L (34-104) H 02/27/25 15:35 Troponin I High Sens 13.2 pg/ml (0-20) 02/27/25 15:35 Total Protein 5.3 gm/dl (6.0-8.3) L 02/27/25 15:35 Albumin 2.7 gm/dl (3.4-5.0) L 02/27/25 15:35 Globulin 2.6 gm/dl (2.5-4.0) 02/27/25 15:35 Albumin/Globulin Ratio 1.0 (0.9-2) 02/27/25 15:35 Lipase 16 U/L (11-82) 02/27/25 15:[address] 02/27/25 16:32 EXAM: CT chest diagnostic w con CLINICAL HISTORY: R chest wall pain s/p fall. TECHNIQUE: Contiguous 3.[address] images of the chest were acquired with administration of 93ml Opitray-320mg/ml intravenous contrast. Coronal and sagittal reconstructions were obtained. IV contrast was administered for post-contrast images. One of the following dose reduction techniques was utilized for this exam: Automated exposure control, adjustment of the mA and/or kV according to patient size, and use of iterative reconstruction COMPARISON: Same day chest x-ray 02/27/2025 15:56:00 TABLEAU ANALYST was reviewed. FINDINGS: Lungs: Small right-sided pneumothorax (10%). Mild bilateral pleural effusion, with adjacent ground glass opacities. In the right, an air-space opacity is seen measuring about 1.3 cm. Another nodular measuring 0.7 mm is seen in the lingula. Subsegmental atelectasis in the middle lobe, lingula, and both lower lobes. Mediastinum: No mediastinal mass or abnormal lymphadenopathy. Normal appearance of the thymus. Hilar Structures: Normal size and configuration, no enlargement. Heart and Great Vessels: Cardiomegaly. No pericardial effusion. Normal caliber and course of the thoracic aorta and other great vessels. No significant atherosclerosis or aneurysm. Normal enhancement of the great vessels post-contrast. Pulmonary Arteries: No evidence of pulmonary embolism. Normal size and course of the pulmonary arteries. Esophagus: Normal course and caliber. No masses or dilatation. Bones: Mildly displaced fractures of the right 4th anterior and 5th lateral ribs. Chest Wall: Mild soft tissue emphysema in the right lateral chest wall at 4th and 5th rib levels. Degenerative changes in the spine. Upper Abdomen: Pneumobilia. Thyroid: Normal size and morphology. No nodules or masses. IMPRESSION: 1. Small right-sided pneumothorax at the lung base (10%). 2. Mild bilateral pleural effusion. 3. Ground-glass opacities in both lower lobes, with a 1.3 cm nodule in the right. Primary differential is contusion, in view of the history of trauma. Follow-up is advised. 4. Mildly displaced fractures of the right 4th anterior and 5th lateral ribs. 5. Mild soft tissue emphysema in the right lateral chest wall at 4th and 5th rib levels. 6. Another pulmonary nodule measuring 0.7 mm in the lingula. Advised follow-up. Electronically signed by Arsenio Red 02-27-2025 7:06 PM Chest X-Ray 02/27/25 16:32 EXAM: XR chest 1V portable CLINICAL HISTORY: Chest pain, nonspecific TECHNIQUE: portable X-ray image of the chest is obtained in AP projection. COMPARISON: 02/27/2025 FINDINGS: 1 Pulmonary Parenchyma: Hyperinflated lung see representing COPD No evidence of consolidation, collapse, or focal opacities. No pulmonary nodules are identified. No evidence of pleural effusion or pleural thickening. Heart and Mediastinum: Heart size appears enlarged. Prominent aortic arch with wall calcification. No mediastinal widening or masses. No hilar or mediastinal lymphadenopathy. Bony Thorax: Bony thorax appears intact without fractures or deformities. Soft Tissues: Soft tissues overlying the chest wall are unremarkable. Midline sternotomy wires. IMPRESSION: Hyperinflated lung see representing COPD Cardiomegaly. No interval changes. Electronically signed by Arsenio Red 02-27-2025 5:51 PM Knee X-Ray 02/27/25 16:32 EXAM: XR knee RT 3V CLINICAL HISTORY: R knee pain. S/p fall TECHNIQUE: X-ray images of the right knee were obtained in anteroposterior (AP), lateral, and sunrise/skyline (patellar) projections. COMPARISON: No prior studies available for comparison. FINDINGS: Bone Structure: Bone structure is normal and well-aligned. No evidence of acute fractures or dislocations. No osseous lesions or abnormalities identified. Joint Spaces: Joint space narrowing of the patellofemoral joint, with osteophyte formation. Articular Surfaces: Articular surfaces are smooth and intact. Patella: Patella is normal in position and alignment. No evidence of patellar dislocation or subluxation. Soft Tissues: Coarse calcifications noted at distal patellar tendon. Mild suprapatellar joint effusion. IMPRESSION: 1. 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 2. Chronic tendinitis of the distal patellar tendon. 3. Mild suprapatellar joint effusion. Disclaimer: A subtle bone abnormality or fracture may not be readily apparent on X-rays, thus clinical correlation and further imaging including follow-up CT, MRI, or follow-up X-rays are advised as needed. Electronically signed by Arsenio Red 02-27-2025 6:02 PM Diagnostic Findings EKG as per my interpretation :Rate 65, A-fib, normal axis, septal infarct, no ischemia Code Status & VTE Plan VTE Prophylaxis Plan VTE Prophylaxis will be ordered: Yes
[2025-02-28] MEDS ORDERED: REMOVE LIDODERM PATCH SCH (06:00)
[2025-02-28] MEDS: FERROUS SULFATE 325 MG TAB PO SCH (08:27)
[2025-02-28] MEDS: POLYETHYLENE (MIRALAX) 17 GM PACK PO SCH (08:29)
[2025-02-28] MEDS: REMOVE LIDODERM PATCH SCH (08:38)
[2025-02-28 09:05] LABS: Hematocrit (blood only) 38.4 % (42.0-52.0); Hemoglobin 12.2 g/dl (14.0-18.0); Immature Granulocytes # (auto) 0.21 K/uL (0.01-0.20); Immature Granulocytes % (auto) 1.8 %; Mean Corpuscular Hemoglobin 29.2 pg (25.0-34.0); Mean Corpuscular Volume 91.9 fL (80.0-100.0); Platelet Count 439 K/uL (130-400); RDW Standard Deviation 49.9 fL (36.4-46.3); Red Blood Count 4.18 M/uL (4.70-6.10); White Blood Count 12.00 K/ul (4.8-10.8)
[2025-02-28 09:24] LABS: Anion Gap 7.0 (3-11); Blood Urea Nitrogen 18.0 mg/dl (6-23); Calcium 8.2 mg/dl (8.6-10.3); Carbon Dioxide 25.0 mmol/L (21-32); Chloride 107.0 mmol/L (98-107); Creatinine Clr Calc Pharmacy 36.7 ml/min; Glucose 165.0 mg/dl (70-99(Fasting)); Potassium 5.0 mmol/L (3.5-5.1); Sodium 139.0 mmol/L (136-145)
--- NOTE | 2025-02-28 09:24 | Electrocardiogram Report ---
Test Reason : Blood Pressure : */* mmHG Vent. Rate : 64 BPM Atrial Rate : * BPM P-R Int : * ms QRS Dur : 90 ms QT Int : 382 ms P-R-T Axes : * 72 22 degrees QTcB Int : 394 ms Atrial fibrillation Abnormal ECG When compared with ECG of 08-Feb-2025 14:45, QRS voltage has decreased Nonspecific T wave abnormality now evident in Inferior leads Confirmed by Anival Weems ([id number]) on 02/28/2025 9:24:05 AM Referred By: REFERRED SELF Confirmed By: Anival Weems
--- NOTE | 2025-02-28 09:30 | XRay Report ---
XR chest 2V PA/lateral CLINICAL HISTORY: ffup pneumothorax COMPARISON STUDY: 02/27/2025 FINDINGS: There is a stable small right apical pneumothorax with 1 cm pleural separation at the right apex. There are small bilateral pleural effusions with mild associated lung base consolidation. Stab le CABG. Stable cardiomegaly with mild pulmonary vascular congestion. IMPRESSION: 1. Stable small right pneumothorax. 2. CHF with small bilateral pleural effusions. ACT 112: Negative or not required by law. Electronically signed by: Alvaro Long M.D. 02/28/2025 9:28 AM
[2025-02-28 09:44] LABS: INR 2.1 (0.9-1.1); Prothrombin Time 21.4 Seconds (9.0-12.0)
[2025-02-28 10:04] LABS: Hemoglobin A1C 6.3 % (4.5-5.6)
--- NOTE | 2025-02-28 10:58 | Cardiology Consultation ---
Date of Consultation February 28, 2025 Assessment & Plan (1) Fall from standing: (2) Pneumothorax on right: (3) Multiple fractures of ribs: (4) Right-sided chest pain: (5) Pleural effusion: (6) Diastolic heart failure: (7) Hypoalbuminemia: (8) Protein calorie malnutrition: Plan 84-year-old male patient admitted to [facility] following a mechanical fall with resultant mildly displaced fractures of the right fourth anterior and fifth lateral ribs with small right-sided pneumothorax and mild soft tissue emphysema in the right lateral chest wall at 4th and 5th rib levels. Cardiology consultation requested by Hospitalist due to imaging revealing small bilateral pleural effusions Small bilateral pleural effusions. Suspect multifactorial in etiology - metastatic pancreatic cancer, protein caloric malnutrition, hypoalbuminemia, recent hospitalization with symptomatic anemia requiring transfusion, possible diastolic congestive heart failure. Agree with cautious low dose loop diuretic therapy. Atrial fibrillation. Duration and recent echo findings suggest low likelihood of restoring and maintaining sinus rhythm. Continue rate control strategy. [id number] Score 5 points. Risks and benefits of anticoagulation discussed with patient as well as family who was present at the time of consultation. Patient with recent hospitalization with symptomatic anemia requiring transfusion of packed red blood cells and now mechanical fall with resultant rib fractures and pneumothorax. Risks of short-term and long-term anticoagulation appear greater then the benefit. ASCVD. Status post remote HI leading to CABG at age 51, in 1990, HI in 2011 status post PCI with 3 stent. Patient without angina. EKG without acute ST segment change. High-sensitivity troponin negative. Continue medical management. Supervising Physician Co-Signing Physician Notes Patient was seen and personally examined. Full assessment and plan as outlined by advanced provider as above. Care and management discussed personally and endorsed. 84-year-old with complex medical history as outlined admitted after a fall and chest contusion injury. Chest x-ray very small bilateral pleural effusions with parenchyma mostly clear. Known preserved LV systolic function. Exam not consistent with significant congestive heart failure. Suspect pleural effusions are multifactorial as above. Would use diuretics cautiously. Suspect will not require daily dosing History of Present Illness Reason for Consultation: Congestive heart failure, pleural effusions Requesting Physician: [facility], Dr. Arlette Dickens MD Attending Physician: [facility], Dr. Arlette Dickens MD History of Present Illness Mr. Andrade Mcfarlane is a very pleasant 84-year-old male who presented to the [facility] ER in the evening of February 27, 2025 with right sided chest discomfort. The patient notes that he decided to go out for a walk yesterday afternoon. After walking down the road about 4-5 houses he lost his balance and fell, striking the right side of his chest and right knee on the ground. He did not strike his head. He was able to get himself up and walked back to the house where he rested for approximately 1 hour, unfortunately experiencing ongoing significant right-sided chest discomfort that ultimately brought him to the ER. Imaging of the chest revealed mildly displaced fractures of the right fourth anterior and fifth lateral ribs, mild soft tissue emphysema in the right lateral chest wall at 4th and 5th rib levels, small right-sided pneumothorax, mild bilateral pleural effusions, ground glass opacities in both lower lobes, 2 pulmonary nodules. Cardiology consultation requested due to observed pleural effusions,, concerns regarding acute decompensated congestive heart failure. Patient carries a longstanding history of ASCVD status post HI in 1990. At that time patient underwent coronary artery bypass grafting. In 2011 patient experience another HI, undergoing PCI with 3 stents placed at that time. Patient with permanent atrial fibrillation diagnosed in 2011, chronically prescribed Coumadin anticoagulation due to [id number] score of 4 points. Patient hospitalized earlier this month with syncope attributed to symptomatic anemia requiring transfusion, possible GI bleeding in the setting of supratherapeutic INR. Additional problems include chronic diastolic heart failure, hypertension, dyslipidemia, stage III chronic kidney disease, and bipolar disorder. In November 2024 patient presented with abdominal pain, imaging revealing likely primary adenocarcinoma of the pancreas with metastasis. In December 2024 patient was admitted to [facility] with nausea, vomiting, abdominal pain in the setting of small bowel obstruction. Patient deemed not to be a surgical candidate. No chest pain prior to the fall on 02/27. No angina. No palpitations. No cough or chest congestion. No orthopnea or PND. , present at bedside, notes fluid retention in extremities as well as poor PO intake. Family History: Positive for CAD in mother, HI, and brother. Father with multiple myeloma. Social History: Reformed smoker. No smokeless tobacco. No alcohol. No illegal drug use. Lives with . 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 Born in [place]. Allergies Allergy/AdvReac Type Severity Reaction Status Date / Time pollen extracts Allergy Mild Sneezing Verified 01/31/25 08:00 Home Medications Medication Instructions Recorded Confirmed Type latanoprost 0.005 % eye drops 1 drp OPB HS 02/14/20 02/27/25 History rosuvastatin 40 mg tablet (Crestor) 40 mg PO QDD 02/14/20 02/27/25 History aspirin 81 mg tablet,delayed 81 mg PO QAM #0 tabs 02/25/20 02/27/25 Rx release cholecalciferol (vitamin D3) 50 50 mcg PO QPM 08/07/21 02/27/25 History mcg (2,000 unit) capsule timolol maleate 0.5 % eye drops 1 drp OPL QAM 08/29/22 02/27/25 History carbamazepine 300 mg 300 mg PO HS 10/31/22 02/27/25 History capsule,extended release [id number] carvedilol 6.25 mg tablet 6.25 mg PO AMHS 10/28/23 02/27/25 History lisinopril 20 mg tablet 20 mg PO AMPM 10/28/23 02/27/25 History warfarin 2 mg tablet See Rx Instructions .Route .COMPLEX 10/28/23 02/27/25 History morphine 15 mg tablet,extended 15 mg PO TID 01/16/25 02/27/25 History release ondansetron 4 mg disintegrating 4 mg PO Q6H PRN nausea and 01/21/25 02/27/25 Rx tablet vomiting #30 tabs oxycodone 5 mg tablet 5 mg PO Q4H PRN Breakthrough Pain 02/08/25 02/27/25 History tramadol 50 mg tablet 50 mg PO Q6H PRN Severe Pain 02/08/25 02/27/25 History (Scale Score 7-10) ferrous sulfate 325 mg (65 mg 325 mg PO QAM #30 tabs 02/12/25 02/27/25 Rx iron) tablet,delayed release pantoprazole 40 mg tablet,delayed 40 mg PO BID #60 tabs 02/12/25 02/27/25 Rx release amlodipine 5 mg tablet 5 mg PO QAM 02/27/25 02/27/25 History docusate sodium 100 mg capsule 100 mg PO AMHS 02/27/25 02/27/25 History (Colace) lidocaine-prilocaine 2.5 %-2.5 % 1 applic topical UD 02/27/25 02/27/25 History topical cream ondansetron HCl 8 mg tablet 8 mg PO Q8 PRN Nausea 02/27/25 02/27/25 History polyethylene glycol 3350 17 17 g PO QAM 02/27/25 02/27/25 History gram/dose oral powder (Miralax) prochlorperazine maleate 10 mg 10 mg PO Q6 PRN Nausea 02/27/25 02/27/25 History tablet Patient History Medical History (Updated 02/28/25 @ 11:15 by Marty You) Hypoalbuminemia Confusion Pancreatic cancer metastatic History of Mohs micrographic surgery for skin cancer FOREHEAD 01/2023 History of COVID-19 05/2022, home test, mild symptoms and cough>lasted 3 days>resolved. Inguinal hernia of left side without obstruction or gangrene Bladder outlet obstruction Follows with urology Skin cancer Follows derm History of nephrolithiasis HLD (hyperlipidemia) HTN (hypertension) On anticoagulant therapy Glaucoma Follows with eye doctor Depression Surgical History Hx laparoscopic cholecystectomy (10/29/23) Laparoscopic Cholecystectomy - Bridget Hayes DO Hx of left cataract extraction Hx of right cataract extraction History of transurethral resection of prostate 06/14/21 [facility]: MAC. No issues per anesthesia postop progress note. History of colonoscopy History of cardioversion ~2011, [facility]; attempted, not successful "have been in a-fib ever since"; f/u dr galvin, [facility] History of vasectomy History of heart artery stent x 2 (both placed in 2011) History of cardiac cath PVI + stent (2011)-"had 3 minor heart attacks" History of cystoscopy History of coronary artery bypass graft 1990; follows with [facility] S/P appendectomy 1960 Family History Mother Myocardial infarction Father Cancer Multiple Myeloma Social History Smoking Status: Never smoker Tobacco Type: Cigarettes packs per day: 1; Second Hand Exposure: No; Do You Dip or Chew Tobacco: No; Hx Alcohol Use: No Hx Substance Use: No Preferred Language: Italian Communication Ability: Effective Visual Impairment: No Limitations [employer] Inspector Required: No Beliefs That Will Affect Care: None marital status: Current Living Situation: Spouse Current Living Situation Comment: lives with Jie current occupational status: retired How many Children do You have: 2 Other Information That Helps Us Care for You: No Feels Safe at Home: Yes Safety Concerns: Feels Safe At This Time Diet: regular during the past year weight has: remained stable Assistive Devices: Hearing Aid - Bilateral Review of Systems Review of Systems: Complete Review of Systems is as stated above, negative, or noncontributory. Physical Exam Physical Exam: General: A&Ox3. Pale. Cachetic. HENT: Normocephalic. Atraumatic. Eyes: PER. Conjunctiva pink, sclera clear. Neck: Carotid bruits. No JVD. No HJR. Heart: Irregularly irregular at 86 bpm. Grade II/ systolic murmur. No diastolic murmur. No rub. Lungs: Clear to auscultation anteriorly. Abdomen: +BS. Soft. Nontender. No masses or organomegaly. Extremities: 1-2+ pretibial edema. Excoriations over the right knee. No clubbing. No cyanosis Limited neurological examination is without focal deficits. Pulses: Posterior tibial=1/4. Results & Data Vital Signs (Past 12 Hours) Vital Signs Temp Pulse Pulse Resp BP BP Pulse Ox 02/28/25 10:00 78 02/28/25 08:39 02/28/25 07:12 36.5 C 76 16 138/76 97 02/28/25 04:50 36.6 C 67 18 128/72 99 02/28/25 00:45 O2 Del Method O2 Flow Rate 02/28/25 10:00 02/28/25 08:39 Nasal Cannula 2 02/28/25 07:12 Room Air 02/28/25 04:50 Room Air 02/28/25 00:45 Room Air Laboratory Results Cardiac Enzymes 02/27/25 Range/Units 15:35 AST 64 H (13-39) U/L Troponin I High Sens 13.2 (0-20) pg/ml Coagulation 02/27/25 02/28/25 Range/Units 15:35 08:46 PT 24.4 H 21.4 H (9.0-12.0) Seconds CBC 02/27/25 02/28/25 Range/Units 15:35 08:46 WBC 6.94 12.00 H (4.8-10.8) K/ul RBC 3.22 L 4.18 L (4.70-6.10) M/uL Hgb 9.5 L 12.2 L (14.0-18.0) g/dl Hct 29.5 L 38.4 L (42.0-52.0) % Plt Count 283 439 H D (130-400) K/uL Neut # (Auto) 4.98 9.70 H (1.40-6.50) K/uL Lymph # (Auto) 1.16 L 1.22 (1.20-3.40) K/uL Finney # (Auto) 0.54 0.68 H (0.11-0.59) K/uL Eos # (Auto) 0.10 0.13 (0.00-0.50) K/uL Baso # (Auto) 0.03 0.06 (0.00-0.20) K/uL Comprehensive Metabolic Panel 02/27/25 02/28/25 Range/Units 15:35 08:46 Sodium 139 139 (136-145) mmol/L Potassium 4.1 5.0 D (3.5-5.1) mmol/L Chloride 108 H 107 (98-107) mmol/L Carbon Dioxide 26 25 (21-32) mmol/L BUN 19 18 (6-23) mg/dl Creatinine 1.14 1.06 (0.6-1.4) mg/dl Glucose 170 H 165 H (70-99(Fasting)) mg/dl Calcium 7.7 L 8.2 L (8.6-10.3) mg/dl AST 64 H (13-39) U/L ALT 29 (7-52) U/L Alkaline Phosphatase 407 H (34-104) U/L Total Protein 5.3 L (6.0-8.3) gm/dl Albumin 2.7 L (3.4-5.0) gm/dl Intake and Output 02/27/25 02/28/25 02/28/25 22:59 06:59 14:59 Intake Total 100 / 100 Balance 100 / 100 Intake: IV 100 / 100 Acetaminophen 1,000 mg In 100 100 / 100 ml @ 400 mls/hr IV NOW STA Rx#: [id number] Other: Weight 49.169 kg 49.2 kg Weight Measurement Method Standing Scale Diagnostic Findings Initial EKG on February 27, 2025 revealed atrial fibrillation with a ventricular rate of 64 bpm with nonspecific T wave abnormality inferiorly. EKG this (02/28) morning reveals atrial fibrillation with a ventricular rate of 82 bpm with nonspecific T wave abnormality. Continuous telemetry monitoring reveals atrial fibrillation throughout, intermittently with elevated ventricular response rates. Resting echocardiography on January 18, 2025 revealed preserved LV systolic function, EF 55 to 60%. Normal RV size and function noted. Aortic valve is described as mildly sclerotic, without significant stenosis. There was mild aortic regurgitation, mild to moderate mitral regurgitation, mild tricuspid regurgitation. No pericardial effusion observed.
[2025-02-28] MEDS: ACETAMINOPHEN 1,000 MG/100 ML VIAL IV STA (11:01)
[2025-02-28] MEDS: FUROSEMIDE 20 MG TAB PO SCH (11:01)
[2025-02-28] MEDS: MoRPHine SULFATE 2 MG/ML CARP ONE (14:15)
[2025-02-28] MEDS: MoRPHine SULFATE 4 MG/ML 1 ML CARP\\VIAL ONE (15:08)
[2025-02-28] MEDS: MoRPHine SULFATE 2 MG/ML CARP IV STA ×2 (15:14→17:06)
--- NOTE | 2025-02-28 15:14 | Hospitalist Progress Note ---
Date of Service February 28, 2025 Assessment & Plan (1) Pneumothorax on right: Plan: Traumatic right pneumothorax Traumatic rib fractures Recurrent falls Supplemental O2 Pulmonology consult re: traumatic pneumothorax Recommends repeat x-ray after 6 hours, stable Held Coumadin PT/OT Uncontrollable Pain Pt noting pain in right chest area and abdomen Stat repeat CT ordered On morphine po at home Palliative care consulted, appreciate further recs for pain control Congestive Heart failure chronic diastolic failure (EF 55 to 60%, TTE 2024) xray chest noting chf, small pleural effusions started on po lasix Give cardiac hx, cardiology consulted, appreciate recs A-fib on Coumadin INR therapeutic - holding coumadin on coreg Will need another disussion with about risk/benefit of anticoagulation Chronic Medial Problems hx CAD status post CABG/stent A-fib on Coumadin, INR therapeutic - holding coumadin valvular heart disease (mild to moderate MR/mild AR/TR) hypertension, stable hyperlipidemia, on statin Rx metastatic pancreatic cancer on chemotherapy chronic cancer pain on narcotics Hyperglycemia rule out DM past tobacco abuse Diet: DVT prophylaxis. SCDs while Coumadin on hold DNR as per patient prior directives. Admission and Anticipated Discharge Date Admission Date: February 27, 2025 Subjective Pt was seen multiple times during the day Had a fall with pneumothorax States having right sided chest pain and later notified that he was calling out into the critical access hospital Palliative care with whom pt follows, consulted for pain management Review of Systems Review of Systems: All systems reviewed & are unremarkable except as noted in Subjective Physical Exam Physical Exam: General: Alert, oriented. No acute distress HEENT: NC/AT Chest: tender to palpation. CV: irregular Resp: no increased effort of breathing Abdomen: Soft,tender, firm Extremities: No edema in lower extremities bilaterally. Results & Data Results & Data Vital Signs (Past 12 Hours) Vital Signs Temp Pulse Pulse Resp BP BP Pulse Ox 02/28/25 11:01 36.8 C 88 16 136/74 97 02/28/25 10:00 78 02/28/25 08:39 02/28/25 07:12 36.5 C 76 16 138/76 97 02/28/25 04:50 36.6 C 67 18 128/72 99 O2 Del Method O2 Flow Rate 02/28/25 11:01 Nasal Cannula 2 02/28/25 10:00 02/28/25 08:39 Nasal Cannula 2 02/28/25 07:12 Room Air 02/28/25 04:50 Room Air
--- NOTE | 2025-02-28 15:15 | Pulmonary Consultation ---
Date of Consultation February 28, 2025 Assessment & Plan (1) Pleural effusion: (2) Diastolic heart failure: (3) Pneumothorax on right: (4) Multiple fractures of ribs: Plan Andrade Mcfarlane is an 84-year old male with past medical history of pancreatic cancer, left inguinal hernia, hypertension, hyperlipidemia, glaucoma, depression, HFpEF, CAD s/p CABG, atrial fibrillation on coumadin; who presented to [facility] on 02/27/2025 after a fall and found to have rib fractures of the right 4th and 5th rib as well as a small right sided pneumothorax. CT chest 02/27/2025 personally reviewed: Small right-sided pneumothorax Right lower lobe pulmonary nodule Small bilateral pleural effusion Cardiomegaly No significant mediastinal lymphadenopathy Right side 4th and 5th rib fracture; Right sided traumatic pneumothorax -CT chest showed right pneumothorax with rib fractures of 4th and 5th right ribs. -Repeat CXR 02/28/2025 showed stable small right pneumothorax approximately 1cm at apex. -Patient clinically shows no signs of tension physiology and is aysmptomatic. -Would manage conservatively. If patient does be come unstable discussed need for chest tube and he was in agreement to proceed if he needs. -Avoid positive pressure ventilation -Monitor chest x-ray and signs of pneumothorax expansion. Bilateral pleural effusions; Diastolic hear failure -CT showed bilateral pleural effusions -Continue diuresis. Lasix dosed this am. -Maintain SpO2 > 92%. Patient 97% on room air at time of evaluation. -Continue carvedilol and lisinopril. Thank you for allowing us to participate in this patient's care. Please feel free to contact for questions or concerns. Supervising Physician Co-Signing Physician Notes I saw and evaluated the patient with MARICARMEN Hernandez, and agree with findings and plan as documented in the note. 84-year-old male admitted to the hospital s/p mechanical fall and right-sided rib fractures Past medical history: Pancreatic cancer, coronary artery disease s/p CABG, HFpEF, dyslipidemia, hypertension Pulmonary consulted for small right-sided pneumothorax At the time of examination patient was not in any distress He was saturating well on room air Denied any headache Did complain of some discomfort at the site of the rib fractures Constitutional: No acute distress, frail-appearing HEENT: EOMI, PERRLA, no subcutaneous emphysema Respiratory system: Decreased air entry bilaterally, no wheeze, no rhonchi, no crackles CVS: S1-S2 positive, no murmurs or gallops Abdomen: Soft, mild generalized abdominal tenderness, no rebound, decreased bowel sound x 4 Extremities: +2 pulses bilaterally radialis/ dorsalis pedis, no cyanosis, +2 pitting edema bilateral lower extremity Neuro: Awake alert oriented x3 Psych: Normal mood and affect G/U: No Tellez Plan: CT chest 02/27/2025 personally reviewed: Small right-sided pneumothorax Right lower lobe pulmonary nodule Small bilateral pleural effusion Cardiomegaly No significant mediastinal lymphadenopathy Chest x-ray on personal review from today does show small right apical pneumothorax Does not seem to be changed in size compared to yesterday Avoid positive pressure ventilation, avoid flutter valve Repeat chest x-ray tomorrow and that the chest x-ray stable then okay to discharge from pulmonary perspective Given the pleural effusion seems to be getting worse on the CT of the abdominal pelvis, I will change Lasix to 40 mg on a daily basis with first dose now Patient does seem to have some anasarca like picture likely from protein calorie malnutrition. Giving albumin prior to diuresing will also be beneficial I spent more than 75 minutes looking in the chart, images, discussing the plan of care with the patient, RN as well as primary team Please note the above document was generated using voice recognition software. It may contain grammatical, syntax or spelling errors.Any formal questions or concerns about the content, text or information contained within the body of this dictation should be directly addressed to the provider for clarification. History of Present Illness Reason for Consultation: Right sided traumatic pneumothorax with rib fractures of right 4th and 5th rib. Attending Physician: Arlette Dickens MD History of Present Illness Andrade Mcfarlane is an 84-year old male with past medical history of pancreatic cancer, left inguinal hernia, hypertension, hyperlipidemia, glaucoma, depression, HFpEF, CAD s/p CABG, atrial fibrillation on coumadin; who presented to [facility] on 02/27/2025 after a fall. Of note the patient has had multiple hospitalizations since December of 2024; with the last being 2 weeks ago for syncope and orthostasis found to have a GI bleed. Patient was dishcagred home and went for a walk in the afternoon of 02/27/2025 where he tripped and fell on to the side walk striking his right rib cage. The patient had shortness of breath and right chest pain prompting him to come to [facility]. Initial chest x- ray was negative but a CT chest showed a small apical pneumothorax and rib fractures of the right 4th and 5th rib. Patient admitted to the hospitalist service and pulmonary was consulted for evaluation and management of a small right sided pneumothorax. Allergies Allergy/AdvReac Type Severity Reaction Status Date / Time pollen extracts Allergy Mild Sneezing Verified 01/31/25 08:00 Home Medications Medication Instructions Recorded Confirmed Type latanoprost 0.005 % eye drops 1 drp OPB HS 02/14/20 02/27/25 History rosuvastatin 40 mg tablet (Crestor) 40 mg PO QDD 02/14/20 02/27/25 History aspirin 81 mg tablet,delayed 81 mg PO QAM #0 tabs 02/25/20 02/27/25 Rx release cholecalciferol (vitamin D3) 50 50 mcg PO QPM 08/07/21 02/27/25 History mcg (2,000 unit) capsule timolol maleate 0.5 % eye drops 1 drp OPL QAM 08/29/22 02/27/25 History carbamazepine 300 mg 300 mg PO HS 10/31/22 02/27/25 History capsule,extended release [id number] carvedilol 6.25 mg tablet 6.25 mg PO AMHS 10/28/23 02/27/25 History lisinopril 20 mg tablet 20 mg PO AMPM 10/28/23 02/27/25 History warfarin 2 mg tablet See Rx Instructions .Route .COMPLEX 10/28/23 02/27/25 History morphine 15 mg tablet,extended 15 mg PO TID 01/16/25 02/27/25 History release ondansetron 4 mg disintegrating 4 mg PO Q6H PRN nausea and 01/21/25 02/27/25 Rx tablet vomiting #30 tabs oxycodone 5 mg tablet 5 mg PO Q4H PRN Breakthrough Pain 02/08/25 02/27/25 History tramadol 50 mg tablet 50 mg PO Q6H PRN Severe Pain 02/08/25 02/27/25 History (Scale Score 7-10) ferrous sulfate 325 mg (65 mg 325 mg PO QAM #30 tabs 06/14/25 06/29/25 Rx iron) tablet,delayed release pantoprazole 40 mg tablet,delayed 40 mg PO BID #60 tabs 02/12/25 02/27/25 Rx release amlodipine 5 mg tablet 5 mg PO QAM 02/27/25 02/27/25 History docusate sodium 100 mg capsule 100 mg PO AMHS 02/27/25 02/27/25 History (Colace) lidocaine-prilocaine 2.5 %-2.5 % 1 applic topical UD 02/27/25 02/27/25 History topical cream ondansetron HCl 8 mg tablet 8 mg PO Q8 PRN Nausea 02/27/25 02/27/25 History polyethylene glycol 3350 17 17 g PO QAM 02/27/25 02/27/25 History gram/dose oral powder (Miralax) prochlorperazine maleate 10 mg 10 mg PO Q6 PRN Nausea 02/27/25 02/27/25 History tablet Patient History Medical History Hypoalbuminemia Confusion Pancreatic cancer metastatic History of Mohs micrographic surgery for skin cancer FOREHEAD 01/2023 History of COVID-19 05/2022, home test, mild symptoms and cough>lasted 3 days>resolved. Inguinal hernia of left side without obstruction or gangrene Bladder outlet obstruction Follows with urology Skin cancer Follows derm History of nephrolithiasis HLD (hyperlipidemia) HTN (hypertension) On anticoagulant therapy Glaucoma Follows with eye doctor Depression Surgical History Hx laparoscopic cholecystectomy (10/29/23) Laparoscopic Cholecystectomy - Bridget Hayes DO Hx of left cataract extraction Hx of right cataract extraction History of transurethral resection of prostate 06/14/21 [facility]: MAC. No issues per anesthesia postop progress note. History of colonoscopy History of cardioversion ~2011, [facility]; attempted, not successful "have been in a-fib ever since"; f/u dr galvin, [facility] History of vasectomy History of heart artery stent x 2 (both placed in 2011) History of cardiac cath PVI + stent (2011)-"had 3 minor heart attacks" History of cystoscopy History of coronary artery bypass graft 1990; follows with [facility] S/P appendectomy 1960 Family History Mother Myocardial infarction Father Cancer Multiple Myeloma Social History Smoking Status: Never smoker Tobacco Type: Cigarettes packs per day: 1; Second Hand Exposure: No; Do You Dip or Chew Tobacco: No; Hx Alcohol Use: No Hx Substance Use: No Preferred Language: Yoruba Communication Ability: Effective Visual Impairment: No Limitations [employer] Required: No Beliefs That Will Affect Care: None marital status: Current Living Situation: Spouse Current Living Situation Comment: lives with Jie current occupational status: retired How many Children do You have: 2 Other Information That Helps Us Care for You: No Feels Safe at Home: Yes Safety Concerns: Feels Safe At This Time Diet: regular during the past year weight has: remained stable Assistive Devices: Walker Review of Systems 2 Review of Systems: All systems reviewed & are unremarkable except as noted in HPI & below Physical Exam 2 Physical Exam: VITALS: Reviewed. WEIGHT/BMI reviewed. GEN: Chronically ill patient lying in bed with generalized pain. PSYCH: Good Judgment. AOx3. Normal memory, mood, and affect. HEENT -Head: NC/AT; -Eyes: PERRL, EOMI. No discharge or redn ess; -Ears: External ears are normal. Normal TMs. -Nose: Normal nares. -Mouth and throat: MMM. Normal gums, muc graham, palate,. Good dentition. NECK: Supple, with no masses. No JVD. CV: RRR, no m/r/g. LUNGS: CTAB, no w/r/c. ABD: Soft, NT/ND, NBS, no masses or organomegaly. : N/A SKIN: Warm, well perfused. No skin rashes or abnormal lesions. MSK: No deformities, Normal gait. EXT: No clubbing, cyanosis, or edema. NEURO: Face symmetric, speech clear, Normal muscle strength and tone. No focal deficits. Results & Data Results & Data Vital Signs (Past 12 Hours) Vital Signs Temp Pulse Pulse Resp BP BP Pulse Ox 02/28/25 11:01 36.8 C 88 16 136/74 97 02/28/25 10:00 78 02/28/25 08:39 02/28/25 07:12 36.5 C 76 16 138/76 97 02/28/25 04:50 36.6 C 67 18 128/72 99 O2 Del Method O2 Flow Rate 02/28/25 11:01 Nasal Cannula 2 02/28/25 10:00 02/28/25 08:39 Nasal Cannula 2 02/28/25 07:12 Room Air 02/28/25 04:50 Room Air Laboratory Results 02/28/25 08:46 02/28/25 08:46 Abnormal Lab Results 02/27/25 02/28/25 15:35 08:46 WBC 6.94 12.00 H RBC 3.22 L 4.18 L Hgb 9.5 L 12.2 L Hct 29.5 L 38.4 L MCV 91.6 91.9 MCH 29.5 29.2 MCHC 32.2 31.8 L RDW Std Deviation 50.3 H 49.9 H RDW Coeff of Bonnie 15.1 H 15.6 H Plt Count 283 439 H D MPV 9.9 9.8 Immature Gran % (Auto) 1.9 1.8 Neut % (Auto) 71.8 80.7 Lymph % (Auto) 16.7 10.2 Casey % (Auto) 7.8 5.7 Eos % (Auto) 1.4 1.1 Baso % (Auto) 0.4 0.5 Neut # (Auto) 4.98 9.70 H Lymph # (Auto) 1.16 L 1.22 Casey # (Auto) 0.54 0.68 H Eos # (Auto) 0.10 0.13 Baso # (Auto) 0.03 0.06 Immature Gran # (Auto) 0.13 0.21 H Absolute Nucleated RBC 0.02 Nucleated RBC % (auto) 0.2 PT 24.4 H 21.4 H INR 2.4 H 2.1 H Sodium 139 139 Potassium 4.1 5.0 D Chloride 108 H 107 Carbon Dioxide 26 25 Anion Gap 5 7 BUN 19 18 Creatinine 1.14 1.06 Est Cr Clr Drug Dosing Not Reportable 36.7 eGFR 63.81 69.63 BUN/Creatinine Ratio 16.7 17.0 Glucose 170 H 165 H Estimat Average Glucose 134 Hemoglobin A1c 6.3 H Calcium 7.7 L 8.2 L Magnesium 1.9 Total Bilirubin 0.4 AST 64 H ALT 29 Alkaline Phosphatase 407 H Troponin I High Sens 13.2 Total Protein 5.3 L Albumin 2.7 L Globulin 2.6 Albumin/Globulin Ratio 1.0 Lipase [address] 02/27/25 16:32 EXAM: CT chest diagnostic w con CLINICAL HISTORY: R chest wall pain s/p fall. TECHNIQUE: Contiguous 3.[address] images of the chest were acquired with administration of 93ml Opitray-320mg/ml intravenous contrast. Coronal and sagittal reconstructions were obtained. IV contrast was administered for post-contrast images. One of the following dose reduction techniques was utilized for this exam: Automated exposure control, adjustment of the mA and/or kV according to patient size, and use of iterative reconstruction COMPARISON: Same day chest x-ray 02/27/2025 15:56:00 PLANISHER was reviewed. FINDINGS: Lungs: Small right-sided pneumothorax (10%). Mild bilateral pleural effusion, with adjacent ground glass opacities. In the right, an air-space opacity is seen measuring about 1.3 cm. Another nodular measuring 0.7 mm is seen in the lingula. Subsegmental atelectasis in the middle lobe, lingula, and both lower lobes. Mediastinum: No mediastinal mass or abnormal lymphadenopathy. Normal appearance of the thymus. Hilar Structures: Normal size and configuration, no enlargement. Heart and Great Vessels: Cardiomegaly. No pericardial effusion. Normal caliber and course of the thoracic aorta and other great vessels. No significant atherosclerosis or aneurysm. Normal enhancement of the great vessels post-contrast. Pulmonary Arteries: No evidence of pulmonary embolism. Normal size and course of the pulmonary arteries. Esophagus: Normal course and caliber. No masses or dilatation. Bones: Mildly displaced fractures of the right 4th anterior and 5th lateral ribs. Chest Wall: Mild soft tissue emphysema in the right lateral chest wall at 4th and 5th rib levels. Degenerative changes in the spine. Upper Abdomen: Pneumobilia. Thyroid: Normal size and morphology. No nodules or masses. IMPRESSION: 1. Small right-sided pneumothorax at the lung base (10%). 2. Mild bilateral pleural effusion. 3. Ground-glass opacities in both lower lobes, with a 1.3 cm nodule in the right. Primary differential is contusion, in view of the history of trauma. Follow-up is advised. 4. Mildly displaced fractures of the right 4th anterior and 5th lateral ribs. 5. Mild soft tissue emphysema in the right lateral chest wall at 4th and 5th rib levels. 6. Another pulmonary nodule measuring 0.7 mm in the lingula. Advised follow-up. Electronically signed by Arsenio Red 02-27-2025 7:06 PM Chest X-Ray 02/27/25 16:32 EXAM: XR chest 1V portable CLINICAL HISTORY: Chest pain, nonspecific TECHNIQUE: portable X-ray image of the chest is obtained in AP projection. COMPARISON: 02/27/2025 FINDINGS: 1 Pulmonary Parenchyma: Hyperinflated lung see representing COPD No evidence of consolidation, collapse, or focal opacities. No pulmonary nodules are identified. No evidence of pleural effusion or pleural thickening. Heart and Mediastinum: Heart size appears enlarged. Prominent aortic arch with wall calcification. No mediastinal widening or masses. No hilar or mediastinal lymphadenopathy. Bony Thorax: Bony thorax appears intact without fractures or deformities. Soft Tissues: Soft tissues overlying the chest wall are unremarkable. Midline sternotomy wires. IMPRESSION: Hyperinflated lung see representing COPD Cardiomegaly. No interval changes. Electronically signed by Arsenio Red 02-27-2025 5:51 PM Knee X-Ray 02/27/25 16:32 EXAM: XR knee RT 3V CLINICAL HISTORY: R knee pain. S/p fall TECHNIQUE: X-ray images of the right knee were obtained in anteroposterior (AP), lateral, and sunrise/skyline (patellar) projections. COMPARISON: No prior studies available for comparison. FINDINGS: Bone Structure: Bone structure is normal and well-aligned. No evidence of acute fractures or dislocations. No osseous lesions or abnormalities identified. Joint Spaces: Joint space narrowing of the patellofemoral joint, with osteophyte formation. Articular Surfaces: Articular surfaces are smooth and intact. Patella: Patella is normal in position and alignment. No evidence of patellar dislocation or subluxation. Soft Tissues: Coarse calcifications noted at distal patellar tendon. Mild suprapatellar joint effusion. IMPRESSION: 1. 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 2. Chronic tendinitis of the distal patellar tendon. 3. Mild suprapatellar joint effusion. Disclaimer: A subtle bone abnormality or fracture may not be readily apparent on X-rays, thus clinical correlation and further imaging including follow-up CT, MRI, or follow-up X-rays are advised as needed. Electronically signed by Arsenio Red 02-27-2025 6:02 PM Chest X-Ray 02/28/25 07:00 XR chest 2V PA/lateral CLINICAL HISTORY: ffup pneumothorax COMPARISON STUDY: 02/27/2025 FINDINGS: There is a stable small right apical pneumothorax with 1 cm pleural separation at the right apex. There are small bilateral pleural effusions with mild associated lung base consolidation. Stable CABG. Stable cardiomegaly with mild pulmonary vascular congestion. IMPRESSION: 1. Stable small right pneumothorax. 2. CHF with small bilateral pleural effusions. ACT 112: Negative or not required by law. Electronically signed by: Alvaro Long M.D. 02/28/2025 9:28 AM PG Care Time/CCT Total # of Minutes Spent Total Time Spent with Patient: Total time spent is greater than 50% in coordination of care (as documented) at patient's floor/unit and/or counseling patient: Coding Level of Care Code 90434 INT INP/OBS CARE 3/75MIN Diagnoses Pleural effusion J90 Diastolic heart failure I50.30 Pneumothorax on right J93.9 Multiple fractures of ribs S22.49XA
[2025-02-28] MEDS: MoRPHine SULFATE 4 MG/ML 1 ML CARP\\VIAL IV STA (15:32)
[2025-02-28] MEDS: ROSUVASTATIN CALCIUM 20 MG TAB PO SCH (16:10)
[2025-02-28] MEDS: OPTIRAY 320 100ml IV ONE ×2 (16:13→16:14)
[2025-02-28] MEDS ORDERED: FUROSEMIDE 10 MG/ML 10 ML VIAL IV SCH (16:45)
--- NOTE | 2025-02-28 17:11 | Palliative Care Consultation ---
Date of Consultation February 28, 2025 Assessment & Plan (1) Palliative care by specialist: assessed pt at bedside, no family present. Introduced Palliative Medicine and explained our role in advanced care planning, symptom management and navigation through the progression of life limiting d isease. Patient was receptive to palliative services for goals of care discussions. Reviewed we are different from hospice, a home health nurse visiting service. (2) Cancer related pain: On my assessment, pt moaning loudly c/o severe all over abdominal pain, not characteristic of his typical cancer related pain - in acute pain crisis and unable to quantify or characterize pain other than "it hurts so bad, just shoot me". requested BSRN to administer IV morphine 2mg and 4mg without relief. Pt follows with [facility] Palliative care team for cancer related pain which had been well managed with Morphine Sulfate (MSContin) 15 mg PO Q8H EMELIA and Oxycodone HCl Ir 5 Mg Tab PO Q4H PRN fo rbreakthrough pain prior to admission. Added Morphine 4mg IVP q4h prn for breakthrough pain. Dr Dickens aware, CT abd pending. (3) Intractable abdominal pain: see #2 (4) Therapeutic opioid-induced constipation (OIC): Per RN pt had normal BM today. Continue prophylactic senna/miralax as able for bowel regime while on opiate analgesics. Plan as above History of Present Illness Reason for Consultation: pain management Requesting Physician: Arlette Dickens MD Attending Physician: Arlette Dickens MD History of Present Illness Andrade Mcfarlane is an 84-year old male with past medical history of pancreatic cancer, left inguinal hernia, hypertension, hyperlipidemia, glaucoma, depression, HFpEF, CAD s/p CABG, atrial fibrillation on coumadin; who presented to [facility] on 02/27/2025 after a fall. Of note the patient has had multiple hospitalizations since December of 2024; with the last being 2 weeks ago for syncope and orthostasis found to have a GI bleed. Patient was dishcagred home and went for a walk in the afternoon of 02/27/2025 where he tripped and fell on to the side walk striking his right rib cage. The patient had shortness of breath and right chest pain prompting him to come to [facility] ED. Initial chest x- ray was negative but a CT chest showed a small apical pneumothorax and rib fractures of the right 4th and 5th rib. Patient admitted to the hospitalist service, and consults were placed to pulmonology, cardiology and palliative care. Allergies Allergy/AdvReac Type Severity Reaction Status Date / Time pollen extracts Allergy Mild Sneezing Verified 01/31/25 08:00 Home Medications Medication Instructions Recorded Confirmed Type latanoprost 0.005 % eye drops 1 drp OPB HS 02/14/20 02/27/25 History rosuvastatin 40 mg tablet (Crestor) 40 mg PO QDD 02/14/20 02/27/25 History aspirin 81 mg tablet,delayed 81 mg PO QAM #0 tabs 02/25/20 02/27/25 Rx release cholecalciferol (vitamin D3) 50 50 mcg PO QPM 08/07/21 02/27/25 History mcg (2,000 unit) capsule timolol maleate 0.5 % eye drops 1 drp OPL QAM 08/29/22 02/27/25 History carbamazepine 300 mg 300 mg PO HS 10/31/22 02/27/25 History capsule,extended release [id number] carvedilol 6.25 mg tablet 6.25 mg PO AMHS 10/28/23 02/27/25 History lisinopril 20 mg tablet 20 mg PO AMPM 10/28/23 02/27/25 History warfarin 2 mg tablet See Rx Instructions .Route .COMPLEX 10/28/23 02/27/25 History morphine 15 mg tablet,extended 15 mg PO TID 01/16/25 02/27/25 History release ondansetron 4 mg disintegrating 4 mg PO Q6H PRN nausea and 01/21/25 02/27/25 Rx tablet vomiting #30 tabs oxycodone 5 mg tablet 5 mg PO Q4H PRN Breakthrough Pain 02/08/25 02/27/25 History tramadol 50 mg tablet 50 mg PO Q6H PRN Severe Pain 02/08/25 02/27/25 History (Scale Score 7-10) ferrous sulfate 325 mg (65 mg 325 mg PO QAM #30 tabs 02/12/25 02/27/25 Rx iron) tablet,delayed release pantoprazole 40 mg tablet,delayed 40 mg PO BID #60 tabs 02/12/25 02/27/25 Rx release amlodipine 5 mg tablet 5 mg PO QAM 02/27/25 02/27/25 History docusate sodium 100 mg capsule 100 mg PO AMHS 02/27/25 02/27/25 History (Colace) lidocaine-prilocaine 2.5 %-2.5 % 1 applic topical UD 02/27/25 02/27/25 History topical cream ondansetron HCl 8 mg tablet 8 mg PO Q8 PRN Nausea 02/27/25 02/27/25 History polyethylene glycol 3350 17 17 g PO QAM 02/27/25 02/27/25 History gram/dose oral powder (Miralax) prochlorperazine maleate 10 mg 10 mg PO Q6 PRN Nausea 02/27/25 02/27/25 History tablet Patient History Medical History (Updated 02/28/25 @ 17:08 by MARICARMEN Kauffman) Hypoalbuminemia Confusion Pancreatic cancer metastatic History of Mohs micrographic surgery for skin cancer FOREHEAD 01/2023 History of COVID-19 05/2022, home test, mild symptoms and cough>lasted 3 days>resolved. Inguinal hernia of left side without obstruction or gangrene Bladder outlet obstruction Follows with urology Skin cancer Follows derm History of nephrolithiasis HLD (hyperlipidemia) HTN (hypertension) On anticoagulant therapy Glaucoma Follows with eye doctor Depression Surgical History Hx laparoscopic cholecystectomy (10/29/23) Laparoscopic Cholecystectomy - Bridget Hayes DO Hx of left cataract extraction Hx of right cataract extraction History of transurethral resection of prostate 06/14/21 [facility]: MAC. No issues per anesthesia postop progress note. History of colonoscopy History of cardioversion ~2011, [facility]; attempted, not successful "have been in a-fib ever since"; f/u dr galvin, [facility] History of vasectomy History of heart artery stent x 2 (both placed in 2011) History of cardiac cath PVI + stent (2011)-"had 3 minor heart attacks" History of cystoscopy History of coronary artery bypass graft 1990; follows with [facility] S/P appendectomy 1960 Family History Mother Myocardial infarction Father Cancer Multiple Myeloma Social History Smoking Status: Never smoker Tobacco Type: Cigarettes packs per day: 1; Second Hand Exposure: No; Do You Dip or Chew Tobacco: No; Hx Alcohol Use: No Hx Substance Use: No Preferred Language: Omani Communication Ability: Effective Visual Impairment: No Limitations Facilities Assistant Required: No Beliefs That Will Affect Care: None marital status: Current Living Situation: Spouse Current Living Situation Comment: lives with Jie current occupational status: retired How many Children do You have: 2 Other Information That Helps Us Care for You: No Feels Safe at Home: Yes Safety Concerns: Feels Safe At This Time Diet: regular during the past year weight has: remained stable Assistive Devices: Walker Review of Systems Review of Systems: All systems reviewed & are unremarkable except as noted in HPI & below Physical Exam Constitutional: + ill appearing, + thin and cooperative; no acute distress Eyes: PERRL, conjunctivae normal, anicteric sclerae Respiratory: normal respiratory effort, lungs clear to auscultation Cardiovascular: RRR, no murmur, no edema Gastrointestinal (Abdomen): Inspection/Auscultation: + hypoactive bowel sounds; abdomen not distended Percussion/Palpation: + abdomen tender, + guarding and + abdomen firm Skin: no rashes, warm and dry Neurologic: moves all extremities, awake and + confused Psychiatric: Orientation: alert, oriented to person and oriented to place Affect: + flat affect Results & Data Vital Signs (Past 12 Hours) Vital Signs Temp Pulse Pulse Resp BP BP Pulse Ox 02/28/25 15:11 36.4 C L 99 H 22 188/75 H 95 02/28/25 14:41 79 02/28/25 11:01 36.8 C 88 16 136/74 97 02/28/25 10:00 78 02/28/25 08:39 02/28/25 07:12 36.5 C 76 16 138/76 97 O2 Del Method O2 Flow Rate 02/28/25 15:11 Room Air 02/28/25 14:41 02/28/25 11:01 Nasal Cannula 2 02/28/25 10:00 02/28/25 08:39 Nasal Cannula 2 02/28/25 07:12 Room Air Laboratory Results Abnormal lab results 02/27/25 02/28/25 Range/Units 15:35 08:46 WBC 12.00 H (4.8-10.8) K/ul RBC 4.18 L (4.70-6.10) M/uL Hgb 12.2 L (14.0-18.0) g/dl Hct 38.4 L (42.0-52.0) % MCHC 31.8 L (32.0-36.0) g/dL RDW Std Deviation 49.9 H (36.4-46.3) fL RDW Coeff of Bonnie 15.6 H (11.5-14.5) % Plt Count 439 H D (130-400) K/uL Neut # (Auto) 9.70 H (1.40-6.50) K/uL [facility] # (Auto) 0.68 H (0.11-0.59) K/uL Immature Gran # (Auto) 0.21 H (0.01-0.20) K/uL PT 24.4 H 21.4 H (9.0-12.0) Seconds INR 2.4 H 2.1 H (0.9-1.1) Chloride 108 H (98-107) mmol/L Glucose 170 H 165 H (70-99(Fasting)) mg/dl Hemoglobin A1c 6.3 H (4.5-5.6) % Calcium 7.7 L 8.2 L (8.6-10.3) mg/dl AST 64 H (13-39) U/L Alkaline Phosphatase 407 H (34-104) U/L Total Protein 5.3 L (6.0-8.3) gm/dl Albumin 2.7 L (3.4-5.0) gm/dl Diagnostic Findings Chest CT 02/27/25 16:32 EXAM: CT chest diagnostic w con CLINICAL HISTORY: R chest wall pain s/p fall. TECHNIQUE: Contiguous 3.[address] images of the chest were acquired with administration of 93ml Opitray-320mg/ml intravenous contrast. Coronal and sagittal reconstructions were obtained. IV contrast was administered for post-contrast images. One of the following dose reduction techniques was utilized for this exam: Automated exposure control, adjustment of the mA and/or kV according to patient size, and use of iterative reconstruction COMPARISON: Same day chest x-ray 02/27/2025 15:56:00 [employer] was reviewed. FINDINGS: Lungs: Small right-sided pneumothorax (10%). Mild bilateral pleural effusion, with adjacent ground glass opacities. In the right, an air-space opacity is seen measuring about 1.3 cm. Another nodular measuring 0.7 mm is seen in the lingula. Subsegmental atelectasis in the middle lobe, lingula, and both lower lobes. Mediastinum: No mediastinal mass or abnormal lymphadenopathy. Normal appearance of the thymus. Hilar Structures: Normal size and configuration, no enlargement. Heart and Great Vessels: Cardiomegaly. No pericardial effusion. Normal caliber and course of the thoracic aorta and other great vessels. No significant atherosclerosis or aneurysm. Normal enhancement of the great vessels post-contrast. Pulmonary Arteries: No evidence of pulmonary embolism. Normal size and course of the pulmonary arteries. Esophagus: Normal course and caliber. No masses or dilatation. Bones: Mildly displaced fractures of the right 4th anterior and 5th lateral ribs. Chest Wall: Mild soft tissue emphysema in the right lateral chest wall at 4th and 5th rib levels. Degenerative changes in the spine. Upper Abdomen: Pneumobilia. Thyroid: Normal size and morphology. No nodules or masses. IMPRESSION: 1. Small right-sided pneumothorax at the lung base (10%). 2. Mild bilateral pleural effusion. 3. Ground-glass opacities in both lower lobes, with a 1.3 cm nodule in the right. Primary differential is contusion, in view of the history of trauma. Follow-up is advised. 4. Mildly displaced fractures of the right 4th anterior and 5th lateral ribs. 5. Mild soft tissue emphysema in the right lateral chest wall at 4th and 5th rib levels. 6. Another pulmonary nodule measuring 0.7 mm in the lingula. Advised follow-up. Electronically signed by Arsenio Red 02-27-2025 7:06 PM Knee X-Ray 02/27/25 16:32 EXAM: XR knee RT 3V CLINICAL HISTORY: R knee pain. S/p fall TECHNIQUE: X-ray images of the right knee were obtained in anteroposterior (AP), lateral, and sunrise/skyline (patellar) projections. COMPARISON: No prior studies available for comparison. FINDINGS: Bone Structure: Bone structure is normal and well-aligned. No evidence of acute fractures or dislocations. No osseous lesions or abnormalities identified. Joint Spaces: Joint space narrowing of the patellofemoral joint, with osteophyte formation. Articular Surfaces: Articular surfaces are smooth and intact. Patella: Patella is normal in position and alignment. No evidence of patellar dislocation or subluxation. Soft Tissues: Coarse calcifications noted at distal patellar tendon. Mild suprapatellar joint effusion. IMPRESSION: 1. 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 2. Chronic tendinitis of the distal patellar tendon. 3. Mild suprapatellar joint effusion. Disclaimer: A subtle bone abnormality or fracture may not be readily apparent on X-rays, thus clinical correlation and further imaging including follow-up CT, MRI, or follow-up X-rays are advised as needed. Electronically signed by Arsenio Red 02-27-2025 6:02 PM Chest X-Ray 02/28/25 07:00 XR chest 2V PA/lateral CLINICAL HISTORY: ffup pneumothorax COMPARISON STUDY: 02/27/2025 FINDINGS: There is a stable small right apical pneumothorax with 1 cm pleural separation at the right apex. There are small bilateral pleural effusions with mild associated lung base consolidation. Stable CABG. Stable cardiomegaly with mild pulmonary vascular congestion. IMPRESSION: 1. Stable small right pneumothorax. 2. CHF with small bilateral pleural effusions. ACT 112: Negative or not required by law. Electronically signed by: Alvaro Long M.D. 02/28/2025 9:28 AM Medications Administered Current Inpatient Medications Acetaminophen (Acetaminophen 325 Mg Tab) 650 mg PO QID PRN PRN Reason: pain/fever Stop: 03/29/25 20:04 Amlodipine Besylate (Amlodipine Besylate 5 Mg Tab) 5 mg PO QAM EMELIA Stop: 03/30/25 08:59 Last Admin: 02/28/25 08:27 Dose: 5 mg Carbamazepine (Carbamazepine Xr 100 Mg Tabcr) 300 mg PO HS EMELIA Stop: 03/29/25 21:29 Last Admin: 02/27/25 22:20 Dose: 300 mg Carvedilol (Carvedilol 6.25 Mg Tab) 6.25 mg PO AMHS EMELIA Stop: 03/30/25 08:59 Last Admin: 02/28/25 08:27 Dose: 6.25 mg Docusate Sodium (Docusate Sodium 100 Mg Cap) 100 mg PO AMHS EMELIA Stop: 03/29/25 21:19 Last Admin: 02/28/25 08:28 Dose: Not Given Ferrous Sulfate (Ferrous Sulfate 325 Mg Tab) 325 mg PO QAM EMELIA Stop: 03/30/25 08:59 Last Admin: 02/28/25 08:27 Dose: 325 mg Furosemide (Furosemide 40 Mg/4 Ml Vial) 40 mg IV DAILY EMELIA Stop: 03/30/25 16:59 Promethazine HCl (Phenergan) 6.25 mg in 50.25 mls @ 201 mls/hr IV Q6H PRN PRN Reason: Nausea And Vomiting Stop: 03/29/25 20:04 Latanoprost (Latanoprost 0.005% Op Soln 2.5 Ml Btl) 1 drops OPB HS EMELIA Stop: 03/29/25 21:54 Last Admin: 02/27/25 22:21 Dose: 1 drops Lidocaine (Lidocaine 5% 1 Patch) 1 patch TD HS EMELIA Stop: 03/29/25 19:54 Last Admin: 02/27/25 20:52 Dose: 1 patch Lisinopril (Lisinopril 20 Mg Tab) 20 mg PO BID EMELIA Stop: 03/29/25 21:29 Last Admin: 02/28/25 08:28 Dose: Not Given Miscellaneous (Remove Lidoderm Patch) 1 each N/A QAM EMELIA Stop: 03/30/25 08:59 Last Admin: 02/28/25 08:38 Dose: 1 each Morphine Sulfate (Morphine Sulfate Cr 15 Mg Tabcr) 15 mg PO Q8H EMELIA Stop: 03/13/25 21:29 Last Admin: 02/28/25 13:39 Dose: 15 mg Oxycodone HCl (Oxycodone Hcl Ir 5 Mg Tab (Immediate Release)) 5 mg PO Q4H PRN PRN Reason: Pain Stop: 03/13/25 20:04 Last Admin: 02/28/25 08:33 Dose: 5 mg Pantoprazole Sodium (Pantoprazole 40 Mg Tab) 40 mg PO BID EMELIA Stop: 03/30/25 08:59 Last Admin: 02/28/25 08:27 Dose: 40 mg Polyethylene Glycol (Polyethylene (Miralax) 17 Gm Pack) 17 gm PO QAM EMELIA Stop: 03/30/25 08:59 Last Admin: 02/28/25 08:29 Dose: 17 gm Rosuvastatin Calcium (Rosuvastatin Calcium 20 Mg Tab) 40 mg PO QDD EMELIA Stop: 03/30/25 16:29 Last Admin: 02/28/25 16:10 Dose: Not Given Timolol Maleate (Timolol Maleate 0.5% Op Soln 5 Ml Btl) 1 drops OPL QAM EMELIA Stop: 03/29/25 21:19 Last Admin: 02/28/25 08:27 Dose: 1 drops Vitamin D (Cholecalciferol 25 Mcg (1000 Units) Tab) 50 mcg PO QPM [facility] Stop: 03/30/25 20:59 PG Care Time/CCT Total # of Minutes Spent Total Time Spent with Patient: Total time spent is greater than 50% in coordination of care (as documented) at patient's floor/unit and/or counseling patient: [place] [address] IN/OBS CONSULT LVL 4,60M Patient Type New History Expanded Problem Focused Exam Expanded Problem Focused Medical Decision Making Moderate Complexity Diagnoses Palliative care by specialist Z51.5 Cancer related pain G89.3 Intractable abdominal pain R10.9 Therapeutic opioid-induced constipation (OIC) K59.03; T40.2X5A
[2025-02-28] MEDS: FUROSEMIDE 40 MG/4 ML VIAL IV SCH (17:45)
--- NOTE | 2025-02-28 18:24 | CT Scan Report ---
Clinical History: Metastatic pancreatic cancer. Abdominal pain Technique: Axial computed tomography images were obtained of the abdomen and pelvis after the administration of intravenous contrast. Comparison is made to the prior CT dated 02/10/2025. Findings: There is a new small right pneumothorax. There is a small amount of free intraperitoneal air The liver is overall of normal size, attenuation, and contour with no sign of cirrhosis or significant fatty infiltration. No liver mass lesion is seen. The portal vein is patent. There is unchanged bile duct dilatation and prominent biliary air. A CBD stent is again seen. The gallbladder has been removed The spleen is of normal size. No focal splenic lesion is evident. The adrenal glands appear unremarkable. Again seen is prominent dilatation of the pancreatic duct, measuring up to 1 cm. Again seen is a locally invasive mass involving the pancreatic head and encasing the superior mesenteric artery, measuring approximately 6 x 3 cm. No definite renal or proximal ureteral calculi are seen on this contrast-enhanced study. There is no hydronephrosis or perinephric stranding. No renal mass lesion is identified. There are bilateral renal cysts, measuring up to 1.7 cm. The aorta is of normal caliber. There is multifocal atherosclerotic plaque. No abdominal adenopathy is seen. There is a small hiatal hernia. An anastomotic device is again seen between the stomach and jejunum. There is no sign of small bowel obstruction. There is mild diverticulosis without definite diverticulitis. There is a small amount of pelvic ascites There is excreted contrast within the urinary bladder. The iliac arteries are of normal caliber. No pelvic adenopathy is noted. There are bilateral moderate sized pleural effusions, increased in size. There is bilateral lower lobe atelectasis. There is an unchanged 1.4 cm nodular opacity in the right lower lobe. There is extensive coronary atherosclerosis. Mild thoracolumbar degenerative disc disease is seen. No fracture is identified. No focal osseous lesion is seen Impression: 1. Small right pneumothorax 2. Small amount of free intraperitoneal air. An etiology is not clearly identified. This could be due to recent surgical intervention, leakage from the gastrojejunal anastomosis, or other bowel perforation 3. Increased bilateral pleural effusions and worsened bilateral lower lobe atelectasis 4. Unchanged apparent right lower lobe nodule, which could be due to metastatic disease 5. Unchanged bile duct dilatation and biliary air as well as pancreatic ductal dilatation, with a CBD stent in place 6. No definite change in a 6 x 3 cm pancreatic head mass, consistent with pancreatic ductal adenocarcinoma. As before, this is locally invasive with encasement of the SMA 7. Bilateral renal cysts 8. Small amount of ascites 9. Mild diverticulosis without definite diverticulitis ACT 112: Positive. There are findings on this exam that require communication between the performing entity and the patient following Patient Test Result Information Act ([place] ACT 112) guidelines. Electronically signed by Denilson Portillo 02-28-2025 6:23 PM
[2025-02-28] MEDS ORDERED: MoRPHine SULFATE 4 MG/ML 1 ML CARP\\VIAL IV PRN (18:36)
--- NOTE | 2025-02-28 18:44 | Communication Note ---
Date of Service: February 28, [address] surgery consult based on CT ABD results as concerning for perforation.
[2025-02-28] MEDS ORDERED: HYDROmorphone INJ 0.5 MG/0.5 ML SYR IV PRN (19:55)
--- NOTE | 2025-02-28 20:22 | Surgery Consultation ---
Date of Consultation February 28, 2025 Supervising Physician Co-Signing Physician Notes Patient discussed with DIO, labs and imaging reviewed, agree with above. 84-year-old male with multiple medical problems including current treatment for pancreatic cancer, and CBD stent. Admitted after mechanical fall for traumatic pneumothorax. He has had significant abdominal pain secondary to cancer, however it worsened since his admission. CT scan was performed and showed pneumothorax, questionable pneumoperitoneum. Currently mildly tachycardic and hypertensive. Afebrile. WBC this morning 12. CT scan personally viewed interpreted and note right basilar pneumothorax and pneumobilia. However I find it difficult to appreciate any significant pneumoperitoneum. He is a poor surgical candidate given his current condition. If he were to require surgery we would recommend transfer to a tertiary facility. At this time we will watch overnight with antibiotics and bowel rest. I will review the CT scan with one of our radiologist tomorrow, consider repeat imaging with oral contrast. Recommend continue to work with palliative care to discuss goals of care as he is currently DNR/DNI and a major surgical intervention will be difficult for him to tolerate. History of Present Illness Reason for Consultation: Abdominal pain Attending Physician: Arlette Dickens MD History of Present Illness This is an 84-year-old male who was admitted to the hospital after suffering a mechanical fall. The patient broke ribs on the right-hand side as well as suffered a right pneumothorax which are delineated imaging described below. General surgery was consulted because earlier today the patient began complaining of severe abdominal pain he was noted to have some free intraperitoneal air on CT scan which is described well. At the time of my interview the patient said that he had just had some generalized abdominal pain he has not had any nausea or vomiting. He denies any fevers, shakes, or chills. The patient does have a history of pancreatic cancer. According to the patient's son and it is felt that the patient's cancer is likely not amenable to surgical intervention but the patient is receiving chemotherapyshe did receive chemotherapy on 02/17/2025 with his next dose scheduled for 2 days from now. They also report that the patient has a history of taking Coumadin with his most recent dose being taken on 02/27/2025. Previous abdominal surgeries the patient has had include an appendectomy as well as a cholecystectomy. They also report that the patient has other medical problems including hypertension, hyperlipidemia, depression, and coronary artery disease. The patient had labs and imaging since admission to the hospital and I independently reviewed these. Patient did have a CT scan of the chest yesterday at time of admission that showed small right-sided pneumothorax at the lung base approximately 10% in size. Patient had mild bilateral pleural effusions. He also had groundglass opacities in both lower lobes concerning for either pneumonia or a pulmonary contusion. He had displaced rib fractures of ribs 4 through 5 on the right. There are some soft tissue emphysema in the right lateral chest wall. Chest x-ray on the same day showed the patient had hyperinflated lung see. There is no mediastinal lymphadenopathy or mediastinal widening. He also had a knee x-ray of the right knee on this date that showed chronic degenerative arthritis. Repeat chest x-ray on 02/28/2025 which was today shows stable small right pneumothorax. A CT scan of the abdomen pelvis performed today showed a small amount of free intraperitoneal air which was identified by the radiologist with no clear etiology identified. Labs today include a CBC will white blood cell count is elevated 12.0. His hemoglobin and hematocrit are 12.2 and 38.4. Platelet count is 4 39,000. Coagulation studies reveal an INR of 2.1. Chemistry profile showed sodium and potassium as well as the BUN and creatinine were normal. At the time of my interview the patient was resting in bed and he was in no acute distress. Allergies Allergy/AdvReac Type Severity Reaction Status Date / Time pollen extracts Allergy Mild Sneezing Verified 01/31/25 08:00 Home Medications Medication Instructions Recorded Confirmed Type latanoprost 0.005 % eye drops 1 drp OPB HS 02/14/20 02/27/25 History rosuvastatin 40 mg tablet (Crestor) 40 mg PO QDD 02/14/20 02/27/25 History aspirin 81 mg tablet,delayed 81 mg PO QAM #0 tabs 02/25/20 02/27/25 Rx release cholecalciferol (vitamin D3) 50 50 mcg PO QPM 08/07/21 02/27/25 History mcg (2,000 unit) capsule timolol maleate 0.5 % eye drops 1 drp OPL QAM 08/29/22 02/27/25 History carbamazepine 300 mg 300 mg PO HS 10/31/22 02/27/25 History capsule,extended release [id number] carvedilol 6.25 mg tablet 6.25 mg PO AMHS 10/28/23 02/27/25 History lisinopril 20 mg tablet 20 mg PO AMPM 10/28/23 02/27/25 History warfarin 2 mg tablet See Rx Instructions .Route .COMPLEX 10/28/23 02/27/25 History morphine 15 mg tablet,extended 15 mg PO TID 01/16/25 02/27/25 History release ondansetron 4 mg disintegrating 4 mg PO Q6H PRN nausea and 01/21/25 02/27/25 Rx tablet vomiting #30 tabs oxycodone 5 mg tablet 5 mg PO Q4H PRN Breakthrough Pain 02/08/25 02/27/25 History tramadol 50 mg tablet 50 mg PO Q6H PRN Severe Pain 02/08/25 02/27/25 History (Scale Score 7-10) ferrous sulfate 325 mg (65 mg 325 mg PO QAM #30 tabs 02/12/25 02/27/25 Rx iron) tablet,delayed release pantoprazole 40 mg tablet,delayed 40 mg PO BID #60 tabs 02/12/25 02/27/25 Rx release amlodipine 5 mg tablet 5 mg PO QAM 02/27/25 02/27/25 History docusate sodium 100 mg capsule 100 mg PO AMHS 02/27/25 02/27/25 History (Colace) lidocaine-prilocaine 2.5 %-2.5 % 1 applic topical UD 02/27/25 02/27/25 History topical cream ondansetron HCl 8 mg tablet 8 mg PO Q8 PRN Nausea 02/27/25 02/27/25 History polyethylene glycol 3350 17 17 g PO QAM 02/27/25 02/27/25 History gram/dose oral powder (Miralax) prochlorperazine maleate 10 mg 10 mg PO Q6 PRN Nausea 02/27/25 02/27/25 History tablet Patient History Medical History Hypoalbuminemia Confusion Pancreatic cancer metastatic History of Mohs micrographic surgery for skin cancer FOREHEAD 01/2023 History of COVID-19 05/2022, home test, mild symptoms and cough>lasted 3 days>resolved. Inguinal hernia of left side without obstruction or gangrene Bladder outlet obstruction Follows with urology Skin cancer Follows derm History of nephrolithiasis HLD (hyperlipidemia) HTN (hypertension) On anticoagulant therapy Glaucoma Follows with eye doctor Depression Surgical History Hx laparoscopic cholecystectomy (10/29/23) Laparoscopic Cholecystectomy - Bridget Hayes DO Hx of left cataract extraction Hx of right cataract extraction History of transurethral resection of prostate 06/14/21 [facility]: [facility]. No issues per anesthesia postop progress note. History of colonoscopy History of cardioversion ~2011, [facility]; attempted, not successful "have been in a-fib ever since"; f/u dr galvin, [facility] History of vasectomy History of heart artery stent x 2 (both placed in 2011) History of cardiac cath PVI + stent (2011)-"had 3 minor heart attacks" History of cystoscopy History of coronary artery bypass graft 1990; follows with [facility] S/P appendectomy 1960 Family History Mother Myocardial infarction Father Cancer Multiple Myeloma Social History Smoking Status: Never smoker Tobacco Type: Cigarettes packs per day: 1; Second Hand Exposure: No; Do You Dip or Chew Tobacco: No; Hx Alcohol Use: No Hx Substance Use: No Preferred Language: Macanese Communication Ability: Effective Visual Impairment: No Limitations Senior Telecommunications Technician Required: No Beliefs That Will Affect Care: None marital status: Current Living Situation: Spouse Current Living Situation Comment: lives with Jie current occupational status: retired How many Children do You have: 2 Other Information That Helps Us Care for You: No Feels Safe at Home: Yes Safety Concerns: Feels Safe At This Time Diet: regular during the past year weight has: remained stable Assistive Devices: Walker Review of Systems Review of Systems: All systems reviewed & are unremarkable except as noted in HPI & below Physical Exam Constitutional: + thin; no acute distress Eyes: no conjunctival abnormality ENMT: Ears: no external ear abnormality Mouth: no oropharynx abnormality Neck: trachea midline Cardiovascular: Rate/Rhythm: regular rate and regular rhythm Gastrointestinal (Abdomen): Abdomen is nondistended. I would characterize the abdomen as slightly rigid without rebound tenderness or guarding. There are some generalized pain with palpation throughout his abdomen Musculoskeletal: No calf tenderness. Pedal pulses (dorsalis pedis) are palpable Skin: no rashes Neurologic: moves all extremities Psychiatric: A+Ox3, euthymic affect Results & Data Vital Signs (Past 12 Hours) Vital Signs Temp Pulse Pulse Resp BP BP Pulse Ox 02/28/25 15:11 36.4 C L 99 H 22 188/75 H 95 02/28/25 14:41 79 02/28/25 11:01 36.8 C 88 16 136/74 97 02/28/25 10:00 78 02/28/25 08:39 O2 Del Method O2 Flow Rate 02/28/25 15:11 Room Air 02/28/25 14:41 02/28/25 11:01 Nasal Cannula 2 02/28/25 10:00 02/28/25 08:39 Nasal Cannula 2 PG Care Time/CCT Total # of Minutes Spent Total Time Spent with Patient: Total time spent is greater than 50% in coordination of care (as documented) at patient's floor/unit and/or counseling patient: Coding Level of Care Code 96736 INT INP/OBS CARE 3/75MIN
[2025-02-28] MEDS ORDERED: LATANOPROST 0.005% OP SOLN 2.5 ML BTL OPB SCH (21:00)
[2025-02-28] MEDS: 4.5GM X1 IV ONE (21:25)
[2025-02-28] MEDS: SODIUM CHLORIDE 0.9% 1,000 ML IV SCH (21:26)
[2025-02-28] MEDS: CHOLECALCIFEROL 25 MCG (1000 UNITS) TAB PO SCH (21:33)
[2025-02-28 23:30] VITALS: RESP 18
[2025-03-01] MEDS: METOPROLOL TARTRATE 1 MG/ML VIAL IV SCH (00:05)
[2025-03-01] MEDS: PIPERACILLIN/TAZOBACTAM 4.5 GM/100 ML BAG IV SCH (01:06)
--- NOTE | 2025-03-01 07:50 | XRay Report ---
EXAM: XR chest 1V portable CLINICAL HISTORY: None TECHNIQUE: Radiograph of chest was acquired. 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 Rest of the lungs are clear and well-expanded with no pulmonary infiltrate Mild blunting of left CP angle- note made of pleural effusion in prior CT dated february 27 2025. Cardiomegaly.(unchanged) Rest of the cardiomediastinal silhouette is within normal limits. No acute osseous abnormality. IMPRESSION: 1. Subsegmental atelectatic bands in left lower zone. 2.Mild blunting of left CP angle- note made of pleural effusion in prior CT dated february 27 2025. 3. Cardiomegaly.(unchanged) No other new interval changes. Electronically signed by Matheus Sanchez 03-01-2025 07:49 AM
[2025-03-01 08:03] LABS: Hematocrit (blood only) 28.5 % (42.0-52.0); Hemoglobin 9.2 g/dl (14.0-18.0); Mean Corpuscular Hemoglobin 29.4 pg (25.0-34.0); Mean Corpuscular Volume 91.1 fL (80.0-100.0); Platelet Count 269 K/uL (130-400); RDW Standard Deviation 50.0 fL (36.4-46.3); Red Blood Count 3.13 M/uL (4.70-6.10); White Blood Count 16.92 K/ul (4.8-10.8)
[2025-03-01 08:15] LABS: Alanine Aminotransferase 78.0 U/L (7-52); Albumin Globulin Ratio 1.0 (0.9-2); Alkaline Phosphatase 484.0 U/L (34-104); Anion Gap 9.0 (3-11); Bilirubin,Total 2.2 mg/dl (0.2-1.0); Blood Urea Nitrogen 21.0 mg/dl (6-23); Calcium 7.5 mg/dl (8.6-10.3); Carbon Dioxide 25.0 mmol/L (21-32); Chloride 106.0 mmol/L (98-107); Creatinine Clr Calc Pharmacy 31.8 ml/min; Globulin 2.5 gm/dl (2.5-4.0); Glucose 140.0 mg/dl (70-99(Fasting)); Magnesium 1.7 mg/dl (1.7-2.4); Potassium 4.3 mmol/L (3.5-5.1); Sodium 140.0 mmol/L (136-145); Total Protein 5.0 gm/dl (6.0-8.3)
[2025-03-01 08:28] LABS: INR 2.1 (0.9-1.1); Prothrombin Time 21.5 Seconds (9.0-12.0)
[2025-03-01 08:37] LABS: Acanthocytes 1+; Immature Granulocytes # (auto) 0.17 K/uL (0.01-0.20); Immature Granulocytes % (auto) 1.0 %; Polychromasia 1+
--- NOTE | 2025-03-01 10:47 | Pulmonology Progress Note ---
Date of Service March 01, 2025 Assessment & Plan (1) Pleural effusion: (2) Diastolic heart failure: (3) Pneumothorax on right: (4) Multiple fractures of ribs: Plan Andrade Mcfarlane is an 84-year old male with past medical history of pancreatic cancer, left inguinal hernia, hypertension, hyperlipidemia, glaucoma, depression, HFpEF, CAD s/p CABG, atrial fibrillation on coumadin; who presented to [facility] on 02/27/2025 after a fall and found to have rib fractures of the right 4th and 5th rib as well as a small right sided pneumothorax. CT chest 02/27/2025 personally reviewed: Small right-sided pneumothorax Right lower lobe pulmonary nodule Small bilateral pleural effusion Cardiomegaly No significant mediastinal lymphadenopathy Right side 4th and 5th rib fracture; Right sided traumatic pneumothorax -CT chest showed right pneumothorax with rib fractures of 4th and 5th right ribs. -Repeat CXR 02/28/2025 showed stable small right pneumothorax approximately 1cm at apex and stbale on 03/01/2025 CXR. -Patient clinically shows no signs of tension physiology and is aysmptomatic. -Would manage conservatively. If patient does be come unstable discussed need for chest tube and he was in agreement to proceed if he needs. -Avoid positive pressure ventilation, flutter valve. -Monitor chest x-ray and signs of pneumothorax expansion. At this point the patient has demonstrated stability both clinically and radiographically of the right small pneumothorax. Pulmonary team comfortable for discharge when appropriate from other medical issue standpoint. Bilateral pleural effusions; Diastolic hear failure -CT showed bilateral pleural effusions -Continue diuresis. Lasix ordered 40mg daily. -Maintain SpO2 > 92%. Patient 97% on room air at time of evaluation. -Continue carvedilol and lisinopril. Thank you for allowing us to participate in this patient's care. Please feel free to contact for questions or concerns. Admission and Anticipated Discharge Date Admission Date: February 27, 2025 Supervising Physician Co-Signing Physician Notes I saw and evaluated the patient with MARICARMEN Hernandez, and agree with findings and plan as documented in the note. Patient seen and examined at bedside. No acute distress, no adverse events overnight Patient's as well as son were in the room at the time of examination He was saturating well on room air Unfortunately he is not able to tolerate diuretics because of low blood pressure Was not in any discomfort when it comes to his belly. Was saturating 99% on 2 L nasal cannula. Constitutional: No acute distress, frail-appearing HEENT: EOMI, PERRLA, no subcutaneous emphysema Respiratory system: Decreased air entry bilaterally, no wheeze, no rhonchi, no crackles CVS: S1-S2 positive, no murmurs or gallops Abdomen: Soft, mild generalized abdominal tenderness, no rebound, decreased bowel sound x 4 Extremities: +2 pulses bilaterally radialis/ dorsalis pedis, no cyanosis, +2 pitting edema bilateral lower extremity Neuro: Awake alert oriented x3 Psych: Normal mood and affect G/U: No Tellez Plan: Chest x-ray from today on personal review does not show any significant right- sided pneumothorax Bilateral blunting of the costophrenic angle persist. Patient does seem to have some anasarca like picture likely from protein calorie malnutrition. Giving albumin prior to diuresing will also be beneficial Diuretics as tolerated Avoid positive pressure ventilation, avoid flutter valve Overall prognosis is guarded given the history of pancreatic CA All questions inquiries of the patient, patient's and son were answered in depth Case was discussed with primary team No further recommendation from pulmonary perspective, will sign off Please call directly with any questions Please note the above document was generated using voice recognition software. It may contain grammatical, syntax or spelling errors.Any formal questions or concerns about the content, text or information contained within the body of this dictation should be directly addressed to the provider for clarification. Subjective "My pain is much better." Chest x-ray this am shows stable right small pneumothorax. Patient subjectively states that overall his pain improved with some tenderness at the right 4th and 5th rib. SpO2 96% on 2L NC. CT abdomen from the evening of 02/28/2025 able to visualize bilateral pleural effusions increased from prior imaging with atelectasis. Patient placed on lasix 40 daily. Small pleural effusions noted on this am chest x-ray. Review of Systems 2 Review of Systems: All systems reviewed & are unremarkable except as noted in HPI & below Physical Exam 2 Physical Exam: VITALS: Reviewed. WEIGHT/BMI reviewed. GEN: Chronically ill patient lying in bed with generalized pain. PSYCH: Good Judgment. AOx3. Normal memory, mood, and affect. HEENT -Head: NC/AT; -Eyes: PERRL, EOMI. No discharge or redn ess; -Ears: External ears are normal. Normal TMs. -Nose: Normal nares. -Mouth and throat: MMM. Normal gums, muc graham, palate,. Good dentition. NECK: Supple, with no masses. No JVD. CV: RRR, no m/r/g. LUNGS: CTAB, no w/r/c. ABD: Soft, NT/ND, NBS, no masses or organomegaly. : N/A SKIN: Warm, well perfused. No skin rashes or abnormal lesions. MSK: No deformities, Normal gait. EXT: No clubbing, cyanosis, or edema. NEURO: Face symmetric, speech clear, Normal muscle strength and tone. No focal deficits. Results & Data Results & Data Vital Signs (Past 12 Hours) Vital Signs Temp Pulse Pulse Resp BP Pulse Ox O2 Del Method 03/01/25 08:25 Nasal Cannula 03/01/25 07:46 37.0 C 78 18 92/55 L 96 Nasal Cannula 03/01/25 06:45 91 H 03/01/25 03:50 97 H 03/01/25 03:47 36.4 C L 89 18 118/69 99 Nasal Cannula 02/28/25 23:29 36.4 C L 102 H 18 96/62 L 97 Nasal Cannula 02/28/25 23:19 Nasal Cannula O2 Flow Rate 03/01/25 08:25 2 03/01/25 07:46 2 03/01/25 06:45 03/01/25 03:50 03/01/25 03:47 2 02/28/25 23:29 2 02/28/25 23:19 2 Laboratory Results 03/01/25 07:29 03/01/25 07:29 Abnormal Lab Results 03/01/25 07:29 WBC 16.92 H RBC 3.13 L Hgb 9.2 L D Hct 28.5 L MCV 91.1 MCH 29.4 MCHC 32.3 RDW Std Deviation 50.0 H RDW Coeff of Bonnie 16.0 H Plt Count 269 MPV 9.9 Immature Gran % (Auto) 1.0 Neut % (Auto) 88.6 Lymph % (Auto) 6.3 Williams % (Auto) 3.7 Eos % (Auto) 0.1 Baso % (Auto) 0.3 Neut # (Auto) 14.99 H Lymph # (Auto) 1.07 L Williams # (Auto) 0.63 H Eos # (Auto) 0.01 Baso # (Auto) 0.05 Immature Gran # (Auto) 0.17 Polychromasia 1+ Acanthocytes (Spur) 1+ PT 21.5 H INR 2.1 H Sodium 140 Potassium 4.3 Chloride 106 Carbon Dioxide 25 Anion Gap 9 BUN 21 Creatinine 1.39 D Est Cr Clr Drug Dosing 31.8 eGFR 50.30 BUN/Creatinine Ratio 15.1 Glucose 140 H Calcium 7.5 L Phosphorus 5.4 H Magnesium 1.7 Total Bilirubin 2.2 H D AST 195 H ALT 78 H Alkaline Phosphatase 484 H Total Protein 5.0 L Albumin 2.5 L Globulin 2.5 Albumin/Globulin Ratio 1.0 Diagnostic Findings Abdomen/Pelvis CT 02/28/25 15:00 Clinical History: Metastatic pancreatic cancer. Abdominal pain Technique: Axial computed tomography images were obtained of the abdomen and pelvis after the administration of intravenous contrast. Comparison is made to the prior CT dated 02/10/2025. Findings: There is a new small right pneumothorax. There is a small amount of free intraperitoneal air The liver is overall of normal size, attenuation, and contour with no sign of cirrhosis or significant fatty infiltration. No liver mass lesion is seen. The portal vein is patent. There is unchanged bile duct dilatation and prominent biliary air. A CBD stent is again seen. The gallbladder has been removed The spleen is of normal size. No focal splenic lesion is evident. The adrenal glands appear unremarkable. Again seen is prominent dilatation of the pancreatic duct, measuring up to 1 cm. Again seen is a locally invasive mass involving the pancreatic head and encasing the superior mesenteric artery, measuring approximately 6 x 3 cm. No definite renal or proximal ureteral calculi are seen on this contrast-enhanced study. There is no hydronephrosis or perinephric stranding. No renal mass lesion is identified. There are bilateral renal cysts, measuring up to 1.7 cm. The aorta is of normal caliber. There is multifocal atherosclerotic plaque. No abdominal adenopathy is seen. There is a small hiatal hernia. An anastomotic device is again seen between the stomach and jejunum. There is no sign of small bowel obstruction. There is mild diverticulosis without definite diverticulitis. There is a small amount of pelvic ascites There is excreted contrast within the urinary bladder. The iliac arteries are of normal caliber. No pelvic adenopathy is noted. There are bilateral moderate sized pleural effusions, increased in size. There is bilateral lower lobe atelectasis. There is an unchanged 1.4 cm nodular opacity in the right lower lobe. There is extensive coronary atherosclerosis. Mild thoracolumbar degenerative disc disease is seen. No fracture is identified. No focal osseous lesion is seen Impression: 1. Small right pneumothorax 2. Small amount of free intraperitoneal air. An etiology is not clearly identified. This could be due to recent surgical intervention, leakage from the gastrojejunal anastomosis, or other bowel perforation 3. Increased bilateral pleural effusions and worsened bilateral lower lobe atelectasis 4. Unchanged apparent right lower lobe nodule, which could be due to metastatic disease 5. Unchanged bile duct dilatation and biliary air as well as pancreatic ductal dilatation, with a CBD stent in place 6. No definite change in a 6 x 3 cm pancreatic head mass, consistent with pancreatic ductal adenocarcinoma. As before, this is locally invasive with encasement of the SMA 7. Bilateral renal cysts 8. Small amount of ascites 9. Mild diverticulosis without definite diverticulitis ACT 112: Positive. There are findings on this exam that require communication between the performing entity and the patient following Patient Test Result Information Act ([place] ACT 112) guidelines. Electronically signed by Denilson Portillo 02-28-2025 6:23 PM Chest X-Ray 03/01/25 07:00 EXAM: XR chest 1V portable CLINICAL HISTORY: None TECHNIQUE: Radiograph of chest was acquired. 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 Rest of the lungs are clear and well-expanded with no pulmonary infiltrate Mild blunting of left CP angle- note made of pleural effusion in prior CT dated february 27 2025. Cardiomegaly.(unchanged) Rest of the cardiomediastinal silhouette is within normal limits. No acute osseous abnormality. IMPRESSION: 1. Subsegmental atelectatic bands in left lower zone. 2.Mild blunting of left CP angle- note made of pleural effusion in prior CT dated february 27 2025. 3. Cardiomegaly.(unchanged) No other new interval changes. Electronically signed by Matheus Sanchez 03-01-2025 07:49 AM PG Care Time/CCT Total # of Minutes Spent Total Time Spent with Patient: Total time spent is greater than 50% in coordination of care (as documented) at patient's floor/unit and/or counseling patient: Coding Level of Care Code 38633 SUB INP/OBS CARE 2/35MIN Diagnoses Pleural effusion J90 Diastolic heart failure I50.30 Pneumothorax on right J93.9 Multiple fractures of ribs S22.49XA
[2025-03-01 11:26] VITALS: TEMP 98.2; O2SAT 98
--- NOTE | 2025-03-01 11:34 | Surgery Progress Note ---
Date of Service March 01, 2025 Assessment & Plan (1) Pancreatic cancer: Plan: Based on patient's symptoms as well as my review and interpretation of the CT scan along with Dr. Long, we do not feel there is any presence of pneumoperitoneum. However given his rising LFTs and appearance of the CT scan, would be concerned that increasing pain could be related to his biliary stent. Would recommend GI consultation to evaluate this, may need ERCP. No surgical indication at this time Consult GI regarding rising LFTs and bilirubin in setting of pancreatic cancer and stent If no intervention planned from their standpoint, would be able to advance diet as tolerated If he were to require any surgical intervention, there would need to be a long talk with the family regarding his current clinical status as would be difficult for him to tolerate a major intervention Would also need transfer to tertiary center if this were necessary Surgical follow peripherally, call with questions or concerns (2) Multiple fractures of ribs: (3) Pneumothorax on right: (4) Permanent atrial fibrillation: Admission and Anticipated Discharge Date Admission Date: March 01, 2025 Subjective History of pancreatic cancer status post biliary stent placement on chemotherapy, admitted status post mechanical fall with rib fractures and small traumatic pneumothorax being managed expectantly. Yesterday had some increased abdominal pain and a CT scan was questionable for pneumoperitoneum. This morning he is feeling better, no abdominal pain other than his baseline. Physical Exam Constitutional: + ill appearing and + cachectic Gastrointestinal (Abdomen): normal bowel sounds, soft, nontender, no hepatosplenomegaly Results & Data Vital Signs (Past 12 Hours) Vital Signs Temp Pulse Pulse Resp BP Pulse Ox O2 Del Method 03/01/25 11:25 36.8 C 95 H 18 65/39 L 98 Room Air 03/01/25 08:25 Nasal Cannula 03/01/25 07:46 37.0 C 78 18 92/55 L 96 Nasal Cannula 03/01/25 06:45 91 H 03/01/25 03:50 97 H 03/01/25 03:47 36.4 C L 89 18 118/69 99 Nasal Cannula 02/28/25 23:29 36.4 C L 102 H 18 96/62 L 97 Nasal Cannula O2 Flow Rate 03/01/25 11:25 03/01/25 08:25 2 03/01/25 07:46 2 03/01/25 06:45 03/01/25 03:50 03/01/25 03:47 2 02/28/25 23:29 2 Laboratory Results Laboratory Results - last 24 hr 03/01/25 07:29 WBC 16.92 H RBC 3.13 L Hgb 9.2 L D Hct 28.5 L MCV 91.1 MCH 29.4 MCHC 32.3 RDW Std Deviation 50.0 H RDW Coeff of Bonnie 16.0 H Plt Count 269 MPV 9.9 Immature Gran % (Auto) 1.0 Neut % (Auto) 88.6 Lymph % (Auto) 6.3 Edgar % (Auto) 3.7 Eos % (Auto) 0.1 Baso % (Auto) 0.3 Neut # (Auto) 14.99 H Lymph # (Auto) 1.07 L Edgar # (Auto) 0.63 H Eos # (Auto) 0.01 Baso # (Auto) 0.05 Immature Gran # (Auto) 0.17 Polychromasia 1+ Acanthocytes (Spur) 1+ PT 21.5 H INR 2.1 H Sodium 140 Potassium 4.3 Chloride 106 Carbon Dioxide 25 Anion Gap 9 BUN 21 Creatinine 1.39 D Est Cr Clr Drug Dosing 31.8 eGFR 50.30 BUN/Creatinine Ratio 15.1 Glucose 140 H Calcium 7.5 L Phosphorus 5.4 H Magnesium 1.7 Total Bilirubin 2.2 H D AST 195 H ALT 78 H Alkaline Phosphatase 484 H Total Protein 5.0 L Albumin 2.5 L Globulin 2.5 Albumin/Globulin Ratio 1.[address] scan was personally viewed and interpreted by myself and also reviewed with Dr. Long from radiology. We are in agreement that there is no evidence of true pneumoperitoneum. There is pneumobilia from his biliary stent, which does look like it could be partially obstructed. He also has a pneumothorax, and the air seen on imaging appears to be above the diaphragm. This is relatively stable. Abdomen/Pelvis CT 02/28/25 15:00 Clinical History: Metastatic pancreatic cancer. Abdominal pain Technique: Axial computed tomography images were obtained of the abdomen and pelvis after the administration of intravenous contrast. Comparison is made to the prior CT dated 02/10/2025. Findings: There is a new small right pneumothorax. There is a small amount of free intraperitoneal air The liver is overall of normal size, attenuation, and contour with no sign of cirrhosis or significant fatty infiltration. No liver mass lesion is seen. The portal vein is patent. There is unchanged bile duct dilatation and prominent biliary air. A CBD stent is again seen. The gallbladder has been removed The spleen is of normal size. No focal splenic lesion is evident. The adrenal glands appear unremarkable. Again seen is prominent dilatation of the pancreatic duct, measuring up to 1 cm. Again seen is a locally invasive mass involving the pancreatic head and encasing the superior mesenteric artery, measuring approximately 6 x 3 cm. No definite renal or proximal ureteral calculi are seen on this contrast-enhanced study. There is no hydronephrosis or perinephric stranding. No renal mass lesion is identified. There are bilateral renal cysts, measuring up to 1.7 cm. The aorta is of normal caliber. There is multifocal atherosclerotic plaque. No abdominal adenopathy is seen. There is a small hiatal hernia. An anastomotic device is again seen between the stomach and jejunum. There is no sign of small bowel obstruction. There is mild diverticulosis without definite diverticulitis. There is a small amount of pelvic ascites There is excreted contrast within the urinary bladder. The iliac arteries are of normal caliber. No pelvic adenopathy is noted. There are bilateral moderate sized pleural effusions, increased in size. There is bilateral lower lobe atelectasis. There is an unchanged 1.4 cm nodular opacity in the right lower lobe. There is extensive coronary atherosclerosis. Mild thoracolumbar degenerative disc disease is seen. No fracture is identified. No focal osseous lesion is seen Impression: 1. Small right pneumothorax 2. Small amount of free intraperitoneal air. An etiology is not clearly identified. This could be due to recent surgical intervention, leakage from the gastrojejunal anastomosis, or other bowel perforation 3. Increased bilateral pleural effusions and worsened bilateral lower lobe atelectasis 4. Unchanged apparent right lower lobe nodule, which could be due to metastatic disease 5. Unchanged bile duct dilatation and biliary air as well as pancreatic ductal dilatation, with a CBD stent in place 6. No definite change in a 6 x 3 cm pancreatic head mass, consistent with pancreatic ductal adenocarcinoma. As before, this is locally invasive with encasement of the SMA 7. Bilateral renal cysts 8. Small amount of ascites 9. Mild diverticulosis without definite diverticulitis ACT 112: Positive. There are findings on this exam that require communication between the performing entity and the patient following Patient Test Result Information Act ([place] ACT 112) guidelines. Electronically signed by Denilson Portillo 02-28-2025 6:23 PM Chest X-Ray 03/01/25 07:00 EXAM: XR chest 1V portable CLINICAL HISTORY: None TECHNIQUE: Radiograph of chest was acquired. COMPARISON: February 27 2025 15:56:00 IN HOME BABY SITTER FINDINGS: Subsegmental atelectatic bands in left lower zone. Rest of the lungs are clear and well-expanded with no pulmonary infiltrate Mild blunting of left CP angle- note made of pleural effusion in prior CT dated february 27 2025. Cardiomegaly.(unchanged) Rest of the cardiomediastinal silhouette is within normal limits. No acute osseous abnormality. IMPRESSION: 1. Subsegmental atelectatic bands in left lower zone. 2.Mild blunting of left CP angle- note made of pleural effusion in prior CT dated february 27 2025. 3. Cardiomegaly.(unchanged) No other new interval changes. Electronically signed by Matheus Sanchez 03-01-2025 07:49 AM PG Care Time/CCT Total # of Minutes Spent Total Time Spent with Patient: Total time spent is greater than 50% in coordination of care (as documented) at patient's floor/unit and/or counseling patient: Coding Level of Care Code 97173 SUB INP/OBS CARE 2/35MIN Diagnoses Malignant neoplasm of pancreas, unspecified location of malignancy C25.9 Pancreatic malignancy location: unspecified Multiple fractures of ribs S22.49XA Pneumothorax on right J93.9 Permanent atrial fibrillation I48.21 (1) Pancreatic cancer Pancreatic malignancy location: unspecified Qualified Code(s): C25.9 - Malignant neoplasm of pancreas, unspecified
[2025-03-01 11:40] VITALS: BP 88/43
--- NOTE | 2025-03-01 11:52 | Gastrointestinal Consultation ---
Date of Consultation March 01, 2025 Assessment & Plan (1) Pancreatic cancer: (2) Elevated LFTs: Plan 84 year old male with history of diastolic heart failure, atrial fibrillation/flutter anticoagulated on Coumadin, HTN, HLD, CAD s/p CABG in 1990 and [place] s/p PCI x 3 stents in 2011, CKD stage IIIb, metastatic pancreatic cancer encasing SMA s/p EUS-guided gastrojejunostomy formed with 20 mm x 10 mm Axios stent on 12/24/24 is seen today is under current admission to hospital for in juries sustained from fall with multiple rib fractures and PTX. Throughout the hospitalization he was found to have elevating LFTs which lead to our consultation today. (1) Elevated LFTs in setting of Metastatic Pancreatic CA - LFTs increasing over the last 2 days. - CT scan 02/28/25 suggests liver is overall of normal size, attenuation, and contour with no sign of cirrhosis or significant fatty infiltration. No liver mass lesion is seen. The portal vein is patent. There is unchanged bile duct dilatation and prominent biliary air. A CBD stent is again seen. - Patient denies any specific pains today but is on opiates for chronic cancer related pain making him a somewhat unreliable historian of pain. Per records it looks like her reported chest wall pain on right side and abdominal pain over the last day. He denies any abdominal pain on examination today. Family reports they're considering hospice for optimization of comfort measures. - Case reviewed with Dr. Mcdaniel, Gastroenterology. He'll plan to review imaging and review options with family as to whether an ERCP would be beneficial. - Further recommendations to come with Supervising GI provider on medical rounds. Please see co-signature comments. History of Present Illness Reason for Consultation: Elevated LFTs s/p biliary stent in setting of pancreatic cancer. Attending Physician: Arlette Dickens MD History of Present Illness 84 year old male with history of diastolic heart failure, atrial fibrillation/flutter anticoagulated on Coumadin, HTN, HLD, CAD s/p CABG in 1990 and [place] s/p PCI x 3 stents in 2011, CKD stage IIIb, metastatic pancreatic cancer encasing SMA s/p EUS-guided gastrojejunostomy formed with 20 mm x 10 mm Axios stent on 12/24/24 is seen today is under current admission to hospital for inj uries sustained from fall with multiple rib fractures and PTX. Throughout the hospitalization he was found to have elevating LFTs which lead to our consultation today. Clinically patient and family reports his primary issue has been struggling with cancer related pain and they're discussing discharge to home on hospice care. Regarding GI symptoms he denies any dysphagia, abdominal pain, N/V/D or constipation. We reviewed his LFTs and imaging studies. T-Bili 0.4 => 2.2 (today) AST 64 => 195 (today) ALT 29 => 78 (today) Alk Phos 407 => 484 (today). CT abd/pelvis with IV contrast 02/28/25 Impression: 1. Small right pneumothorax 2. Small amount of free intraperitoneal air. An etiology is not clearly identified. This could be due to recent surgical intervention, leakage from the gastrojejunal anastomosis, or other bowel perforation 3. Increased bilateral pleural effusions and worsened bilateral lower lobe atelectasis 4. Unchanged apparent right lower lobe nodule, which could be due to metastatic disease 5. Unchanged bile duct dilatation and biliary air as well as pancreatic ductal dilatation, with a CBD stent in place 6. No definite change in a 6 x 3 cm pancreatic head mass, consistent with pancreatic ductal adenocarcinoma. As before, this is locally invasive with encasement of the SMA 7. Bilateral renal cysts 8. Small amount of ascites 9. Mild diverticulosis without definite diverticulitis CT chest 02/27/25 IMPRESSION: 1. Small right-sided pneumothorax at the lung base (10%). 2. Mild bilateral pleural effusion. 3. Ground-glass opacities in both lower lobes, with a 1.3 cm nodule in the right. Primary differential is contusion, in view of the history of trauma. Follow-up is advised. 4. Mildly displaced fractures of the right 4th anterior and 5th lateral ribs. 5. Mild soft tissue emphysema in the right lateral chest wall at 4th and 5th rib levels. 6. Another pulmonary nodule measuring 0.7 mm in the lingula. Advised follow-up. CBC Hgb 9.2 Hct 28.5, WBC 16.92, Plt 269, Neutro 14.99. Glucose 140, BUN 21, Cr 1.39, Cl 106, CO2 25, Na 140, K 4.3 Ca 7.5 CoCa 8.7. LFTs - T-Bili 2.2, AST 195, ALT 78, Alk Phos 484, Albumin 2.5. Allergies Allergy/AdvReac Type Severity Reaction Status Date / Time pollen extracts Allergy Mild Sneezing Verified 01/31/25 08:00 Home Medications Medication Instructions Recorded Confirmed Type latanoprost 0.005 % eye drops 1 drp OPB HS 02/14/20 02/27/25 History rosuvastatin 40 mg tablet (Crestor) 40 mg PO QDD 02/14/20 02/27/25 History aspirin 81 mg tablet,delayed 81 mg PO QAM #0 tabs 02/25/20 02/27/25 Rx release cholecalciferol (vitamin D3) 50 50 mcg PO QPM 08/07/21 02/27/25 History mcg (2,000 unit) capsule timolol maleate 0.5 % eye drops 1 drp OPL QAM 08/29/22 02/27/25 History carbamazepine 300 mg 300 mg PO HS 10/31/22 02/27/25 History capsule,extended release [id number] carvedilol 6.25 mg tablet 6.25 mg PO AMHS 10/28/23 02/27/25 History lisinopril 20 mg tablet 20 mg PO AMPM 10/28/23 02/27/25 History warfarin 2 mg tablet See Rx Instructions .Route .COMPLEX 10/28/23 02/27/25 History morphine 15 mg tablet,extended 15 mg PO TID 01/16/25 02/27/25 History release ondansetron 4 mg disintegrating 4 mg PO Q6H PRN nausea and 01/21/25 02/27/25 Rx tablet vomiting #30 tabs oxycodone 5 mg tablet 5 mg PO Q4H PRN Breakthrough Pain 02/08/25 02/27/25 History tramadol 50 mg tablet 50 mg PO Q6H PRN Severe Pain 02/08/25 02/27/25 History (Scale Score 7-10) ferrous sulfate 325 mg (65 mg 325 mg PO QAM #30 tabs 02/12/25 02/27/25 Rx iron) tablet,delayed release pantoprazole 40 mg tablet,delayed 40 mg PO BID #60 tabs 02/12/25 02/27/25 Rx release amlodipine 5 mg tablet 5 mg PO QAM 02/27/25 02/27/25 History docusate sodium 100 mg capsule 100 mg PO AMHS 02/27/25 02/27/25 History (Colace) lidocaine-prilocaine 2.5 %-2.5 % 1 applic topical UD 02/27/25 02/27/25 History topical cream ondansetron HCl 8 mg tablet 8 mg PO Q8 PRN Nausea 02/27/25 02/27/25 History polyethylene glycol 3350 17 17 g PO QAM 02/27/25 02/27/25 History gram/dose oral powder (Miralax) prochlorperazine maleate 10 mg 10 mg PO Q6 PRN Nausea 02/27/25 02/27/25 History tablet Patient History Medical History Hypoalbuminemia Confusion Pancreatic cancer metastatic History of Mohs micrographic surgery for skin cancer FOREHEAD 01/2023 History of COVID-19 05/2022, home test, mild symptoms and cough>lasted 3 days>resolved. Inguinal hernia of left side without obstruction or gangrene Bladder outlet obstruction Follows with urology Skin cancer Follows derm History of nephrolithiasis HLD (hyperlipidemia) HTN (hypertension) On anticoagulant therapy Glaucoma Follows with eye doctor Depression Surgical History Hx laparoscopic cholecystectomy (10/29/23) Laparoscopic Cholecystectomy - Bridget Hayes DO Hx of left cataract extraction Hx of right cataract extraction History of transurethral resection of prostate 06/14/21 [facility]: MAC. No issues per anesthesia postop progress note. History of colonoscopy History of cardioversion ~2011, [facility]; attempted, not successful "have been in a-fib ever since"; f/u dr galvin, [facility] History of vasectomy History of heart artery stent x 2 (both placed in 2011) History of cardiac cath PVI + stent (2011)-"had 3 minor heart attacks" History of cystoscopy History of coronary artery bypass graft 1990; follows with [facility] S/P appendectomy 1960 Family History Mother Myocardial infarction Father Cancer Multiple Myeloma Social History Smoking Status: Never smoker Tobacco Type: Cigarettes packs per day: 1; Second Hand Exposure: No; Do You Dip or Chew Tobacco: No; Hx Alcohol Use: No Hx Substance Use: No Preferred Language: Chinese Communication Ability: Effective Visual Impairment: No Limitations Corporate General Manager Required: No Beliefs That Will Affect Care: Restoration marital status: Current Living Situation: Spouse Current Living Situation Comment: lives with Jie current occupational status: retired How many Children do You have: 2 Other Information That Helps Us Care for You: No Feels Safe at Home: Yes Safety Concerns: Feels Safe At This Time Diet: regular during the past year weight has: remained stable Assistive Devices: Walker Review of Systems Review of Systems: See HPI Physical Exam Physical Exam: Constitutional: Frail elderly male lying in bed. Alert. Answers questions appropriately. Respiratory: Breathing is even, non-labored. Lungs see are clear to auscultation anteriorly. Cardiovascular: Regular Rate and Rhythm, no murmurs, rubs or gallops appreciated. Gastrointestinal (Abdomen): Normoactive bowel sounds x4, soft, non-distended, non-tender. Musculoskeletal: Lying in bed comfortably. No peripheral edema. Results & Data Vital Signs (Past 12 Hours) Vital Signs Temp Pulse Pulse Resp BP BP BP 03/01/25 11:40 93 H 88/43 L 03/01/25 11:40 93 H 88/43 L 03/01/25 11:25 98.2 F 95 H 18 65/39 L 03/01/25 08:25 03/01/25 07:46 98.6 F 78 18 92/55 L 03/01/25 06:45 91 H 03/01/25 03:50 97 H 03/01/25 03:47 97.5 F L 89 18 118/69 Pulse Ox O2 Del Method O2 Flow Rate 03/01/25 11:40 03/01/25 11:40 03/01/25 11:25 98 Room Air 03/01/25 08:25 Nasal Cannula 2 03/01/25 07:46 96 Nasal Cannula 2 03/01/25 06:45 03/01/25 03:50 03/01/25 03:47 99 Nasal Cannula 2 PG Care Time/CCT Total # of Minutes Spent Total Time Spent with Patient: Total time spent is greater than 50% in coordination of care (as documented) at patient's floor/unit and/or counseling patient: Coding Level of Care Code 02513 IN/OBS CONSULT LVL 3,45M Diagnoses Malignant neoplasm of pancreas, unspecified location of malignancy C25.9 Pancreatic malignancy location: unspecified Elevated LFTs R79.89 (1) Pancreatic cancer Pancreatic malignancy location: unspecified Qualified Code(s): C25.9 - Malignant neoplasm of pancreas, unspecified
[2025-03-01] MEDS: ALBUMIN 5% 250 ML IV ONE (12:10)
[2025-03-01] MEDS ORDERED: HYOSCYAMINE SULFATE 0.125 MG TAB SL PRN (13:01)
[2025-03-01] MEDS ORDERED: ONDANSETRON 4 MG OD TAB SL PRN (13:01)
[2025-03-01] MEDS ORDERED: ONDANSETRON INJ 2 MG/ML 2 ML VIAL IV PRN (13:01)
[2025-03-01] MEDS ORDERED: MoRPHine SULFATE 10 MG/0.5 ML UDP PO PRN (13:01)
--- NOTE | 2025-03-01 13:07 | Hospitalist Progress Note ---
Date of Service March 01, 2025 Assessment & Plan (1) Pneumothorax on right: Plan: Mr. Mcfarlane is an 84 year old, male with with history of chronic diastolic failure, atrial fibrillation/flutter on warfarin, hypertension, hyperlipidemia, coronary artery disease status post CABG in 1990 and [place] s/p PCI x3 stents in 2011, metastatic pancreatic cancer presented to [facility] ED due to fall and uncontrolled pain 2/2 metastatic disease and. Patient was found to have traumatic pneumothorax and rib fractures. Pulm consulted and no interventions recommended. Managed conservatively Patient was trialed on low dose IV lasix given pleural effusions and vascular congestion. CT AB with concerns of questionable perforation, and labs with uptrending lfts iso EUS-guided gastrojejunostomy formed with 20 mm x 10 mm Axios stent on 12/24/24 On 03/01, patient with hypotension to 60-80s and notably confused. Discussed in depth with patient about transitioning to CREMATOR and hospice. Discussed that this is a progressive process and pain will continue to progress, and complications with rib fractures as well as all other comorbidities will continue to evolve. Ultimately, and son agree that comfort measures are the best option and that patient would prefer to go home on hospice. #CREMATOR #Hypotension #Acute encephalopathy # Metastatic pancreatic cancer encasing SMA s/p EUS-guided gastrojejunostomy #Transaminitis concern for perforation on 02/28 CT, however review noted that there was no presence of pneumoperitoneum Ultimately, decision was made to transition patient to [facility]MAT[facility] with plans for home hospice continue home morphine 15mg tid start robinul prn for breakthrough possible D/C tomorrow #Traumatic right pneumothorax #Traumatic rib fractures #Recurrent falls Supplemental O2 Pulmonology consult re: traumatic pneumothorax manage conservatively O2 prn home hospice #Congestive Heart failure chronic diastolic failure (EF 55 to 60%, TTE 2024) xray chest noting chf, small pleural effusions discontinue lasix 2/2 hypotension #A-fib on Coumadin discontinue anticoagulation at this time Chronic Medial Problems hx CAD status post CABG/stent valvular heart disease (mild to moderate MR/mild AR/TR) hypertension, stable hyperlipidemia metastatic pancreatic cancer on chemotherapy chronic cancer pain on narcotics Hyperglycemia rule out DM past tobacco abuse Diet: as tolerated DVT prophylaxis. SCDs DNR as per patient prior directives. DISPO hospice Admission and Anticipated Discharge Date Admission Date: March 01, 2025 Subjective NPO at midnight overnight given concerning CT findings for pneumoperitoneum Patient with hypotension in afternoon Patient does not understand why he is admitted, but denies any pain, alert to self at this time and son at bedside. Long discussion had about GoC and decision made to pursue comfort Physical Exam Constitutional: ill appearing gentleman, yellowish skin discoloration cachectic Respiratory: diminshed 2/2 effort Cardiovascular: tachycardic Results & Data Results & Data Vital Signs (Past 12 Hours) Vital Signs Temp Pulse Pulse Resp BP BP BP 03/01/25 11:40 93 H 88/43 L 03/01/25 11:40 93 H 88/43 L 03/01/25 11:25 36.8 C 95 H 18 65/39 L 03/01/25 08:25 03/01/25 07:46 37.0 C 78 18 92/55 L 03/01/25 06:45 91 H 03/01/25 03:50 97 H 03/01/25 03:47 36.4 C L 89 18 118/69 Pulse Ox O2 Del Method O2 Flow Rate 03/01/25 11:40 03/01/25 11:40 03/01/25 11:25 98 Room Air 03/01/25 08:25 Nasal Cannula 2 03/01/25 07:46 96 Nasal Cannula 2 03/01/25 06:45 03/01/25 03:50 03/01/25 03:47 99 Nasal Cannula 2 Laboratory Results Short CBC 03/01/25 Range/Units 07:29 WBC 16.92 H (4.8-10.8) K/ul Hgb 9.2 L D (14.0-18.0) g/dl Hct 28.5 L (42.0-52.0) % Plt Count 269 (130-400) K/uL BMP 03/01/25 07:29 Sodium 140 Potassium 4.3 Chloride 106 Carbon Dioxide 25 BUN 21 Creatinine 1.39 D Glucose 140 H Calcium 7.5 L Liver Function 03/01/25 Range/Units 07:29 Total Bilirubin 2.2 H D (0.2-1.0) mg/dl AST 195 H (13-39) U/L ALT 78 H (7-52) U/L Alkaline Phosphatase 484 H (34-104) U/L Albumin 2.5 L (3.4-5.0) gm/dl Medications Administered Home Medications Medication Instructions Recorded Confirmed Last Taken latanoprost 0.005 % eye drops 1 drp OPB HS 02/14/20 02/27/25 05/28/23 22:30 rosuvastatin 40 mg tablet (Crestor) 40 mg PO QDD 02/14/20 02/27/25 05/28/23 18:30 aspirin 81 mg tablet,delayed 81 mg PO QAM #0 tabs 02/25/20 02/27/25 05/28/23 08:00 release cholecalciferol (vitamin D3) 50 50 mcg PO QPM 08/07/21 02/27/25 05/28/23 18:30 mcg (2,000 unit) capsule timolol maleate 0.5 % eye drops 1 drp OPL QAM 08/29/22 02/27/25 05/29/23 06:00 carbamazepine 300 mg 300 mg PO HS 10/31/22 02/27/25 05/28/23 18:30 capsule,extended release [id number] carvedilol 6.25 mg tablet 6.25 mg PO AMHS 10/28/23 02/27/25 Unknown lisinopril 20 mg tablet 20 mg PO AMPM 10/28/23 02/27/25 Unknown warfarin 2 mg tablet See Rx Instructions .Route .COMPLEX 10/28/23 02/27/25 Unknown morphine 15 mg tablet,extended 15 mg PO TID 01/16/25 02/27/25 01/16/25 release ondansetron 4 mg disintegrating 4 mg PO Q6H PRN nausea and 01/21/25 02/27/25 Unknown tablet vomiting #30 tabs oxycodone 5 mg tablet 5 mg PO Q4H PRN Breakthrough Pain 02/08/25 02/27/25 Un known tramadol 50 mg tablet 50 mg PO Q6H PRN Severe Pain 02/08/25 02/27/25 Unknown (Scale Score 7-10) ferrous sulfate 325 mg (65 mg 325 mg PO QAM #30 tabs 02/12/25 02/27/25 Unknown iron) tablet,delayed release pantoprazole 40 mg tablet,delayed 40 mg PO BID #60 tabs 02/12/25 02/27/25 Unknown release amlodipine 5 mg tablet 5 mg PO QAM 02/27/25 02/27/25 Unknown docusate sodium 100 mg capsule 100 mg PO AMHS 02/27/25 02/27/25 Unknown (Colace) lidocaine-prilocaine 2.5 %-2.5 % 1 applic topical UD 02/27/25 02/27/25 Unknown topical cream ondansetron HCl 8 mg tablet 8 mg PO Q8 PRN Nausea 02/27/25 02/27/25 Unknown polyethylene glycol 3350 17 17 g PO QAM 02/27/25 02/27/25 Unknown gram/dose oral powder (Miralax) prochlorperazine maleate 10 mg 10 mg PO Q6 PRN Nausea 02/27/25 02/27/25 Unknown tablet Active Medications Generic Name Dose Route Start Last Admin Trade Name Freq PRN Reason Stop Dose Admin Amlodipine Besylate 5 mg 02/28/25 09:00 02/28/25 08:27 Amlodipine Besylate 5 Mg Tab PO 03/30/25 08:59 5 mg QAM EMELIA Administration Carbamazepine 300 mg 02/27/25 21:30 02/28/25 21:33 Carbamazepine Xr 100 Mg Tabcr PO 03/29/25 21:29 300 mg HS EMELIA Administration Carvedilol 6.25 mg 02/28/25 09:00 02/28/25 21:32 Carvedilol 6.25 Mg Tab PO 03/30/25 08:59 6.25 mg AMHS EMELIA Administration Docusate Sodium 100 mg 02/27/25 21:20 03/01/25 08:25 Docusate Sodium 100 Mg Cap PO 03/29/25 21:19 Not Given [facility] EMELIA Piperacillin Sod/Tazobactam Sod 4.5 gm in 100 mls @ 25 mls/hr 03/01/25 02:00 03/01/25 13:50 Zosyn IV 03/11/25 01:59 Infused Q8H EMELIA Infusion Protocol Latanoprost 1 drops 02/27/25 21:55 02/28/25 21:34 Latanoprost 0.005% Op Soln 2.5 Ml Btl OPB 03/29/25 21:54 1 drops HS EMELIA Administration Lidocaine 1 patch 02/27/25 19:55 02/28/25 21:35 Lidocaine 5% 1 Patch TD 03/29/25 19:54 1 patch HS EMELIA Administration Lisinopril 20 mg 02/27/25 21:30 02/28/25 21:34 Lisinopril 20 Mg Tab PO 03/29/25 21:29 20 mg BID EMELIA Administration Miscellaneous 1 each 02/28/25 09:00 03/01/25 08:25 Remove Lidoderm Patch N/A 03/30/25 08:59 1 each QAM EMELIA Administration Morphine Sulfate 15 mg 02/27/25 21:30 03/01/25 12:27 Morphine Sulfate Cr 15 Mg Tabcr PO 03/13/25 21:29 15 mg Q8H EMELIA Administration Oxycodone HCl 5 mg 02/27/25 20:05 02/28/25 08:33 Oxycodone Hcl Ir 5 Mg Tab (Immediate Release) PO 03/13/25 20:04 5 mg Q4H PRN Administration Pain Pantoprazole Sodium 40 mg 02/28/25 09:00 03/01/25 08:25 Pantoprazole 40 Mg Tab PO 03/30/25 08:59 Not Given BID EMELIA Timolol Maleate 1 drops 02/27/25 21:20 03/01/25 08:25 Timolol Maleate 0.5% Op Soln 5 Ml Btl OPL 03/29/25 21:19 1 drops QAM EMELIA Administration
--- NOTE | 2025-03-01 14:39 | Electrocardiogram Report ---
Test Reason : Blood Pressure : */* mmHG Vent. Rate : 82 BPM Atrial Rate : 97 BPM P-R Int : * ms QRS Dur : 92 ms QT Int : 362 ms P-R-T Axes : * 50 -45 degrees QTcB Int : 422 ms Atrial fibrillation Nonspecific T wave abnormality Abnormal ECG When compared with ECG of 27-Feb-2025 16:38, No significant change was found Confirmed by Anival Weems ([id number]) on 03/01/2025 2:38:55 PM Referred By: REFERRED SELF Confirmed By: Anival Weems
--- NOTE | 2025-03-01 17:38 | Palliative Care Progress Note ---
Date of Service March 01, 2025 Assessment & Plan (1) Cancer related pain: (2) Confusion: (3) Weakness generalized: (4) Protein calorie malnutrition: (5) Palliative care by specialist: Plan no complaint today but confused at baseline and not a reliable historian has not returned our call no family present at time of visit he is declining from progressive cancer - Palliative prognostic scores suggest a mortality of weeks, scores below: Palliative Prognostic Score (PaP) = 14 points Interpretation:30-day survival probability <30% 0 - 5.5: 30-day survival probability >70% | 5.6 - 11.0: 30-day survival probability 30-70% | 11.1 - 17.5: 30-day survival probability <30% Palliative Prognostic Index Score (PPI) = 9 points Note:If the PPI is greater than 6.0, survival is less than three weeks (Sensitivity - 80%; Specificity - 85%). Will continue attempts to reach and converse with his ; staff report concerns for ?poss memory impairment as she has demonstrated trouble retaining and processing information when given. During my first meeting with this family on an earlier admission, son had been present and inquired about hospice. Thank you for allowing us to participate in the ongoing care of this patient. Please page with any additional concerns. Jeffery Zhang DNP Director, Palliative Medicine Admission and Anticipated Discharge Date Admission Date: March 01, 2025 Subjective Ed is seen in follow up this morning for acute worsening cancer pain yesterday. He has hx diastolic heart failure, atrial fibrillation/flutter anticoagulated on Coumadin, HTN, HLD, CAD s/p CABG in 1990 and [place] s/p PCI x 3 stents in 2011, CKD stage IIIb, metastatic pancreatic cancer encasing SMA s/p EUS-guided gastrojejunostomy formed with 20 mm x 10 mm Axios stent on 12/24/24. Currently admitted s/p fall + multiple rib fractures and PTX. LFTs keep rising. Abd CT urgently done yesterday and reported the followin. Small right pneumothorax 2. Small amount of free intraperitoneal air. An etiology is not clearly identified. This could be due to recent surgical intervention, leakage from the gastrojejunal anastomosis, or other bowel perforation 3. Increased bilateral pleural effusions and worsened bilateral lower lobe atelectasis 4. Unchanged apparent right lower lobe nodule, which could be due to metastatic disease 5. Unchanged bile duct dilatation and biliary air as well as pancreatic ductal dilatation, with a CBD stent in place 6. No definite change in a 6 x 3 cm pancreatic head mass, consistent with pancreatic ductal adenocarcinoma. As before, this is locally invasive with encasement of the SMA 7. Bilateral renal cysts 8. Small amount of ascites 9. Mild diverticulosis without definite diverticulitis No surgery was recommended GI eval today for possible stent related complication No family present Ed is at his baseline confusion He does not recall yesterday's events or having pain currently denies pain and states "i'm fine, you can let me go home now." Review of Systems Review of Systems: Unobtainable due to cognitive status Physical Exam Constitutional: + ill appearing, + thin and cooperative; no acute distress (pleasantly confused, at times aloof) Eyes: PERRL ENMT: Mouth: + dry oral mucous membranes Neck: normal visual inspection and trachea midline; no tracheal deviation, neck nontender and no nuchal rigidity Respiratory: normal respiratory effort, lungs clear to auscultation Cardiovascular: RRR, no murmur, no edema Gastrointestinal (Abdomen): Inspection/Auscultation: + hypoactive bowel sounds; abdomen not distended Percussion/Palpation: + abdomen tender, + guarding and + abdomen firm Skin: no rashes, warm and dry Neurologic: moves all extremities, awake and + confused Psychiatric: Orientation: oriented to person Affect: + flat affect Results & Data Vital Signs (Past 12 Hours) Vital Signs Temp Pulse Pulse Resp BP BP BP 03/01/25 13:00 105 H 03/01/25 11:40 93 H 88/43 L 03/01/25 11:40 93 H 88/43 L 03/01/25 11:25 36.8 C 95 H 18 65/39 L 03/01/25 08:25 03/01/25 07:46 37.0 C 78 18 92/55 L 03/01/25 06:45 91 H Pulse Ox O2 Del Method O2 Flow Rate 03/01/25 13:00 03/01/25 11:40 03/01/25 11:40 03/01/25 11:25 98 Room Air 03/01/25 08:25 Nasal Cannula 2 03/01/25 07:46 96 Nasal Cannula 2 03/01/25 06:45 Laboratory Results 07/09/2502/28/25 02/27/25 Range/Units 07:29 08:46 15:35 WBC 16.92 H 12.00 H 6.94 (4.8-10.8) K/ul RBC 3.13 L 4.18 L 3.22 L (4.70-6.10) M/uL Hgb 9.2 L D 12.2 L 9.5 L (14.0-18.0) g/dl Hct 28.5 L 38.4 L 29.5 L (42.0-52.0) % MCV 91.1 91.9 91.6 (80.0-100.0) fL MCH 29.4 29.2 29.5 (25.0-34.0) pg MCHC 32.3 31.8 L 32.2 (32.0-36.0) g/dL RDW Std Deviation 50.0 H 49.9 H 50.3 H (36.4-46.3) fL RDW Coeff of Bonnie 16.0 H 15.6 H 15.1 H (11.5-14.5) % Plt Count 269 439 H D 283 (130-400) K/uL MPV 9.9 9.8 9.9 (9.4-12.4) fL Immature Gran % (Auto) 1.0 1.8 1.9 % Neut % (Auto) 88.6 80.7 71.8 % Lymph % (Auto) 6.3 10.2 16.7 % Mccracken % (Auto) 3.7 5.7 7.8 % Eos % (Auto) 0.1 1.1 1.4 % Baso % (Auto) 0.3 0.5 0.4 % Neut # (Auto) 14.99 H 9.70 H 4.98 (1.40-6.50) K/uL Lymph # (Auto) 1.07 L 1.22 1.16 L (1.20-3.40) K/uL Mccracken # (Auto) 0.63 H 0.68 H 0.54 (0.11-0.59) K/uL Eos # (Auto) 0.01 0.13 0.10 (0.00-0.50) K/uL Baso # (Auto) 0.05 0.06 0.03 (0.00-0.20) K/uL Immature Gran # (Auto) 0.17 0.21 H 0.13 (0.01-0.20) K/uL Absolute Nucleated RBC 0.02 (0.00-0.12) K/uL Nucleated RBC % (auto) 0.2 % Polychromasia 1+ Acanthocytes (Spur) 1+ PT 21.5 H 21.4 H 24.4 H (9.0-12.0) Seconds INR 2.1 H 2.1 H 2.4 H (0.9-1.1) Sodium 140 139 139 (136-145) mmol/L Potassium 4.3 5.0 D 4.1 (3.5-5.1) mmol/L Chloride 106 107 108 H (98-107) mmol/L Carbon Dioxide 25 25 26 (21-32) mmol/L Anion Gap 9 7 5 (3-11) BUN 21 18 19 (6-23) mg/dl Creatinine 1.39 D 1.06 1.14 (0.6-1.4) mg/dl Est Cr Clr Drug Dosing 31.8 36.7 Not Reportable eGFR 50.30 69.63 63.81 BUN/Creatinine Ratio 15.1 17.0 16.7 (10-20) Glucose 140 H 165 H 170 H (70-99(Fasting)) mg/dl Estimat Average Glucose 134 mg/dl Hemoglobin A1c 6.3 H (4.5-5.6) % Calcium 7.5 L 8.2 L 7.7 L (8.6-10.3) mg/dl Phosphorus 5.4 H (2.5-4.9) mg/dl Magnesium 1.7 1.9 (1.7-2.4) mg/dl Total Bilirubin 2.2 H D 0.4 (0.2-1.0) mg/dl AST 195 H 64 H (13-39) U/L ALT 78 H 29 (7-52) U/L Alkaline Phosphatase 484 H 407 H (34-104) U/L Troponin I High Sens 13.2 (0-20) pg/ml Total Protein 5.0 L 5.3 L (6.0-8.3) gm/dl Albumin 2.5 L 2.7 L (3.4-5.0) gm/dl Globulin 2.5 2.6 (2.5-4.0) gm/dl Albumin/Globulin Ratio 1.0 1.0 (0.9-2) Lipase 16 (11-82) U/L Diagnostic Findings Chest CT 02/27/25 16:32 EXAM: CT chest diagnostic w con CLINICAL HISTORY: R chest wall pain s/p fall. TECHNIQUE: Contiguous 3.[address] images of the chest were acquired with administration of 93ml Opitray-320mg/ml intravenous contrast. Coronal and sagittal reconstructions were obtained. IV contrast was administered for post-contrast images. One of the following dose reduction techniques was utilized for this exam: Automated exposure control, adjustment of the mA and/or kV according to patient size, and use of iterative reconstruction COMPARISON: Same day chest x-ray 02/27/2025 15:56:00 [employer] S[employer]TER was reviewed. FINDINGS: Lungs: Small right-sided pneumothorax (10%). Mild bilateral pleural effusion, with adjacent ground glass opacities. In the right, an air-space opacity is seen measuring about 1.3 cm. Another nodular measuring 0.7 mm is seen in the lingula. Subsegmental atelectasis in the middle lobe, lingula, and both lower lobes. Mediastinum: No mediastinal mass or abnormal lymphadenopathy. Normal appearance of the thymus. Hilar Structures: Normal size and configuration, no enlargement. Heart and Great Vessels: Cardiomegaly. No pericardial effusion. Normal caliber and course of the thoracic aorta and other great vessels. No significant atherosclerosis or aneurysm. Normal enhancement of the great vessels post-contrast. Pulmonary Arteries: No evidence of pulmonary embolism. Normal size and course of the pulmonary arteries. Esophagus: Normal course and caliber. No masses or dilatation. Bones: Mildly displaced fractures of the right 4th anterior and 5th lateral ribs. Chest Wall: Mild soft tissue emphysema in the right lateral chest wall at 4th and 5th rib levels. Degenerative changes in the spine. Upper Abdomen: Pneumobilia. Thyroid: Normal size and morphology. No nodules or masses. IMPRESSION: 1. Small right-sided pneumothorax at the lung base (10%). 2. Mild bilateral pleural effusion. 3. Ground-glass opacities in both lower lobes, with a 1.3 cm nodule in the right. Primary differential is contusion, in view of the history of trauma. Follow-up is advised. 4. Mildly displaced fractures of the right 4th anterior and 5th lateral ribs. 5. Mild soft tissue emphysema in the right lateral chest wall at 4th and 5th rib levels. 6. Another pulmonary nodule measuring 0.7 mm in the lingula. Advised follow-up. Electronically signed by Arsenoi Red 02-27-2025 7:06 PM Knee X-Ray 02/27/25 16:32 EXAM: XR knee RT 3V CLINICAL HISTORY: R knee pain. S/p fall TECHNIQUE: X-ray images of the right knee were obtained in anteroposterior (AP), lateral, and sunrise/skyline (patellar) projections. COMPARISON: No prior studies available for comparison. FINDINGS: Bone Structure: Bone structure is normal and well-aligned. No evidence of acute fractures or dislocations. No osseous lesions or abnormalities identified. Joint Spaces: Joint space narrowing of the patellofemoral joint, with osteophyte formation. Articular Surfaces: Articular surfaces are smooth and intact. Patella: Patella is normal in position and alignment. No evidence of patellar dislocation or subluxation. Soft Tissues: Coarse calcifications noted at distal patellar tendon. Mild suprapatellar joint effusion. IMPRESSION: 1. 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 2. Chronic tendinitis of the distal patellar tendon. 3. Mild suprapatellar joint effusion. Disclaimer: A subtle bone abnormality or fracture may not be readily apparent on X-rays, thus clinical correlation and further imaging including follow-up CT, MRI, or follow-up X-rays are advised as needed. Electronically signed by Arsenio Red 02-27-2025 6:02 PM Abdomen/Pelvis CT 02/28/25 15:00 Clinical History: Metastatic pancreatic cancer. Abdominal pain Technique: Axial computed tomography images were obtained of the abdomen and pelvis after the administration of intravenous contrast. Comparison is made to the prior CT dated 02/10/2025. Findings: There is a new small right pneumothorax. There is a small amount of free intraperitoneal air The liver is overall of normal size, attenuation, and contour with no sign of cirrhosis or significant fatty infiltration. No liver mass lesion is seen. The portal vein is patent. There is unchanged bile duct dilatation and prominent biliary air. A CBD stent is again seen. The gallbladder has been removed The spleen is of normal size. No focal splenic lesion is evident. The adrenal glands appear unremarkable. Again seen is prominent dilatation of the pancreatic duct, measuring up to 1 cm. Again seen is a locally invasive mass involving the pancreatic head and encasing the superior mesenteric artery, measuring approximately 6 x 3 cm. No definite renal or proximal ureteral calculi are seen on this contrast-enhanced study. There is no hydronephrosis or perinephric stranding. No renal mass lesion is identified. There are bilateral renal cysts, measuring up to 1.7 cm. The aorta is of normal caliber. There is multifocal atherosclerotic plaque. No abdominal adenopathy is seen. There is a small hiatal hernia. An anastomotic device is again seen between the stomach and jejunum. There is no sign of small bowel obstruction. There is mild diverticulosis without definite diverticulitis. There is a small amount of pelvic ascites There is excreted contrast within the urinary bladder. The iliac arteries are of normal caliber. No pelvic adenopathy is noted. There are bilateral moderate sized pleural effusions, increased in size. There is bilateral lower lobe atelectasis. There is an unchanged 1.4 cm nodular opacity in the right lower lobe. There is extensive coronary atherosclerosis. Mild thoracolumbar degenerative disc disease is seen. No fracture is identified. No focal osseous lesion is seen Impression: 1. Small right pneumothorax 2. Small amount of free intraperitoneal air. An etiology is not clearly identified. This could be due to recent surgical intervention, leakage from the gastrojejunal anastomosis, or other bowel perforation 3. Increased bilateral pleural effusions and worsened bilateral lower lobe atelectasis 4. Unchanged apparent right lower lobe nodule, which could be due to metastatic disease 5. Unchanged bile duct dilatation and biliary air as well as pancreatic ductal dilatation, with a CBD stent in place 6. No definite change in a 6 x 3 cm pancreatic head mass, consistent with pancreatic ductal adenocarcinoma. As before, this is locally invasive with encasement of the SMA 7. Bilateral renal cysts 8. Small amount of ascites 9. Mild diverticulosis without definite diverticulitis ACT 112: Positive. There are findings on this exam that require communication between the performing entity and the patient following Patient Test Result Information Act ([place] ACT 112) guidelines. Electronically signed by Denilson Portillo 02-28-2025 6:23 PM Chest X-Ray 03/01/25 07:00 EXAM: XR chest 1V portable CLINICAL HISTORY: None TECHNIQUE: Radiograph of chest was acquired. COMPARISON: February 27 2025 15:56:00 [employer] FINDINGS: Subsegmental atelectatic bands in left lower zone. Rest of the lungs are clear and well-expanded with no pulmonary infiltrate Mild blunting of left CP angle- note made of pleural effusion in prior CT dated february 27 2025. Cardiomegaly.(unchanged) Rest of the cardiomediastinal silhouette is within normal limits. No acute osseous abnormality. IMPRESSION: 1. Subsegmental atelectatic bands in left lower zone. 2.Mild blunting of left CP angle- note made of pleural effusion in prior CT dated february 27 2025. 3. Cardiomegaly.(unchanged) No other new interval changes. Electronically signed by Matheus Sanchez 03-01-2025 07:49 AM PG Care Time/CCT Total # of Minutes Spent Total Time Spent with Patient: Total time spent is greater than 50% in coordination of care (as documented) at patient's floor/unit and/or counseling patient: I spent 40 minutes overall addressing this case: 10 min in medical data review/discussion with referring provider(s) and/or preparation for the visit 15 min in direct interaction with the patient/exam 000 min in Advance Care Planning/Goals of Care discussions as detailed above in note (must be >16min) 5 min in subsequent review and synthesis of assessment and plan 10 min communicating with other providers regarding the patient's case: primary team [place] [address] SUB INP/OBS CARE 3/50MIN Patient Type Established History Comprehensive Exam Comprehensive Medical Decision Making Moderate Complexity Diagnoses Cancer related pain G89.3 Confusion R41.0 Weakness generalized R53.1 Protein calorie malnutrition E46 Palliative care by specialist Z51.5
[2025-03-02 06:27] LABS: INR 1.8 (0.9-1.1); Prothrombin Time 19.0 Seconds (9.0-12.0)
--- NOTE | 2025-03-02 08:53 | Gastroenterology Progress Note ---
Date of Service March 02, 2025 Assessment & Plan (1) Elevated LFTs: (2) Pancreatic cancer: Plan 84 year old male with history of diastolic heart failure, atrial fibrillation/flutter anticoagulated on Coumadin, HTN, HLD, CAD s/p CABG in 1990 and [place] s/p PCI x 3 stents in 2011, CKD stage IIIb, metastatic pancreatic cancer encasing SMA s/p EUS-guided gastrojejunostomy formed with 20 mm x 10 mm Axios stent on 12/24/24 is seen today is under current admission to hospital for injuries sustained from fall with multiple rib fractures and PTX. Throughout the hospitalization he was found to have elevating LFTs which lead to our consultation today. (1) Elevated LFTs in setting of progressive metastatic Pancreatic CA - LFTs increasing over the last 2-3 days. - CT scan 02/28/25 suggests liver is overall of normal size, attenuation, and contour with no sign of cirrhosis or significant fatty infiltration. No liver mass lesion is seen. The portal vein is patent. There is unchanged bile duct dilatation and prominent biliary air. A CBD stent is again seen. - He denies any abdominal pain on examination today. Family reports they're considering hospice for optimization of comfort measures. - Case reviewed with Dr. Mcdaniel, Gastroenterology. At this time stent appears to be patent. No plans for ERCP at this time. - Further recommendations to come with Supervising GI provider on medical rounds. Please see co-signature comments. Admission and Anticipated Discharge Date Admission Date: March 01, 2025 Subjective 84 year old male with history of diastolic heart failure, atrial fibrillation/flutter anticoagulated on Coumadin, HTN, HLD, CAD s/p CABG in 1990 and [place] s/p PCI x 3 stents in 2011, CKD stage IIIb, metastatic pancreatic cancer encasing SMA s/p EUS-guided gastrojejunostomy formed with 20 mm x 10 mm Axios stent on 12/24/24 is seen today is under current admission to hospital for injuries sustained from fall with multiple rib fractures and PTX. Throughout the hospitalization he was found to have elevating LFTs which lead to our consultation 03/01/25 to see if ERCP would be beneficial. Regarding GI symptoms he denies any dysphagia, abdominal pain, N/V/D or constipation. However he has baseline at confusion and is an unreliable historian. CT scans reviewed with Dr. Arian Mcdaniel to see if ERCP would be warranted. At this time it is felt that stent is open and patient is unlikely to benefit from ERCP at this time. We reviewed his LFTs and imaging studies. T-Bili 0.4 => 2.2 (03/01/25) AST 64 => 195 (03/01/25) ALT 29 => 78 (03/01/25) Alk Phos 407 => 484 (03/01/25). CT abd/pelvis with IV contrast 02/28/25 Impression: 1. Small right pneumothorax 2. Small amount of free intraperitoneal air. An etiology is not clearly identified. This could be due to recent surgical intervention, leakage from the gastrojejunal anastomosis, or other bowel perforation 3. Increased bilateral pleural effusions and worsened bilateral lower lobe atelectasis 4. Unchanged apparent right lower lobe nodule, which could be due to metastatic disease 5. Unchanged bile duct dilatation and biliary air as well as pancreatic ductal dilatation, with a CBD stent in place 6. No definite change in a 6 x 3 cm pancreatic head mass, consistent with pancreatic ductal adenocarcinoma. As before, this is locally invasive with encasement of the SMA 7. Bilateral renal cysts 8. Small amount of ascites 9. Mild diverticulosis without definite diverticulitis CT chest 02/27/25 IMPRESSION: 1. Small right-sided pneumothorax at the lung base (10%). 2. Mild bilateral pleural effusion. 3. Ground-glass opacities in both lower lobes, with a 1.3 cm nodule in the right. Primary differential is contusion, in view of the history of trauma. Follow-up is advised. 4. Mildly displaced fractures of the right 4th anterior and 5th lateral ribs. 5. Mild soft tissue emphysema in the right lateral chest wall at 4th and 5th rib levels. 6. Another pulmonary nodule measuring 0.7 mm in the lingula. Advised follow-up. CBC Hgb 9.2 Hct 28.5, WBC 16.92, Plt 269, Neutro 14.99. Glucose 140, BUN 21, Cr 1.39, Cl 106, CO2 25, Na 140, K 4.3 Ca 7.5 CoCa 8.7. LFTs - T-Bili 2.2, AST 195, ALT 78, Alk Phos 484, Albumin 2.5. Review of Systems Review of Systems: See HPI Physical Exam Physical Exam: Constitutional: NAD. Alert. Answering questions appropriately. Respiratory: Breathing is even, non-labored. Lungs see are clear to auscultation anteriorly. Cardiovascular: Regular Rate and Rhythm, no murmurs, rubs or gallops appreciated. Gastrointestinal (Abdomen): Normoactive bowel sounds x4, soft, non-distended, non-tender. Musculoskeletal: Lying in bed comfortably. No peripheral edema. Results & Data Results & Data Vital Signs (Past 12 Hours) Vital Signs O2 Del Method O2 Flow Rate 03/01/25 21:00 Nasal Cannula 2 PG Care Time/CCT Total # of Minutes Spent Total Time Spent with Patient: Total time spent is greater than 50% in coordination of care (as documented) at patient's floor/unit and/or counseling patient: Coding Level of Care Code 93045 SUB INP/OBS CARE 2/35MIN Diagnoses Elevated LFTs R79.89 Malignant neoplasm of pancreas, unspecified location of malignancy C25.9 Pancreatic malignancy location: unspecified (2) Pancreatic cancer Pancreatic malignancy location: unspecified Qualified Code(s): C25.9 - Malignant neoplasm of pancreas, unspecified
[2025-03-02 12:13] VITALS: PULSE 62
--- NOTE | 2025-03-02 14:30 | Discharge Summary ---
Date of Service March 02, 2025 Admission HPI Per Admitting Provider History obtained from patient and records. Medical history significant for chronic diastolic failure (EF 55 to 60%, TTE 2024), CAD status post CABG/stent, A-fib on Coumadin, valvular heart disease (mild to moderate MR/mild AR/TR), hypertension, hyperlipidemia, metastatic pancreatic cancer on chemotherapy, chronic cancer pain on narcotics, bipolar disorder, past tobacco abuse. Multiple admissions since December 2024. Recent confinement 2 weeks ago for syncope attributed to orthostasis and GI bleed. Coumadin held on discharge but eventually restarted outpatient. Patient went out of his house today wanting to walk around to get stronger. Patient lost footing and tripped landing on his right side. Achy right knee pain with some bruising/bleeding. Achy right chest pain with some SOB. Patient brought to ER by for evaluation. 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 Admission Exam Per Admitting Provider GENERAL: Comfortable, underweight, no respiratory distress SKIN: pallor,, warm HEENT: Alopecia, pale palpebral conjunctivae, no ptosis, dry buccal mucosa NECK : Supple, no tenderness CHEST : Decreased breath sounds, minimal right chest wall tenderness HEART : Irregular, no obvious murmurs ABDOMEN: Some distention, no overt tenderness EXTREMITIES : Tender contusion right knee, no other conspicuous deformities noted NEUROLOGIC : Coherent, no facial asymmetry, no other gross focality Principal Diagnosis #Hypotension #Acute encephalopathy # Metastatic pancreatic cancer encasing SMA s/p EUS-guided gastrojejunostomy #Transaminitis #Traumatic right pneumothorax #Traumatic rib fractures #Recurrent falls Discharge Exam Constitutional: Sleeping; comfortable. Not in distress. Respiratory: Bilateral vesicular breath sound Cardiovascular: RRR, no murmur, no edema Vessels: no JVD or carotid bruit Chest: normal inspection of chest Abdomen: normal bowel sounds, soft, nontender, no hepatosplenomegaly Musculoskeletal: no cyanosis or clubbing, extremities motor strength 5/5 Skin: no rashes, warm and dry normal turgor Neurologic: PERRL, EOMI, accommodation nl, no face palsy, no dysarthria CN's II- XI intact bilaterally and moves all extremities Discharge Data Allergies Allergy/AdvReac Type Severity Reaction Status Date / Time pollen extracts Allergy Mild Sneezing Verified 01/31/25 08:00 Consultations 02/27/25 19:39 ED Decision to Admit Stat 02/27/25 22:17 Consult Pulmonology Routine 02/28/25 10:16 Consult Cardiology Routine 02/28/25 10:20 Consult Palliative Care Routine 02/28/25 18:40 Consult General Surgery Routine 03/01/25 11:35 Consult Gastroenterology Routine Ordered Studies 02/27/25 16:32 CT chest diagnostic w con Stat 02/28/25 15:00 CT abd pelvis IV con only Stat Hospital Course (1) Pneumothorax on right: Mr. Mcfarlane is an 84 year old, male with with history of chronic diastolic failure, atrial fibrillation/flutter on warfarin, hypertension, hyperlipidemia, coronary artery disease status post CABG in 1990 and [place] s/p PCI x3 stents in 2011, metastatic pancreatic cancer presented to [facility] ED due to fall and uncontrolled pain 2/2 metastatic disease Patient was found to have traumatic pneumothorax and rib fractures. Pulm consulted and no interventions recommended. Managed conservatively Patient was trialed on low dose IV lasix given pleural effusions and vascular congestion. CT AB with concerns of questionable perforation, and labs with uptrending lfts iso EUS-guided gastrojejunostomy formed with 20 mm x 10 mm Axios stent on 12/24/24 On 03/01, patient with hypotension to 60-80s and notably confused. Discussed in depth with patient about transitioning to [facility] [employer] and hospice. Discussed that this is a progressive process and pain will continue to progress, and complications with rib fractures as well as all other comorbidities will continue to evolve. Ultimately, and son agree that comfort measures are the best option and that patient would prefer to go home on hospice. Patient discharged home on home hospice Please note the above document was generated using voice recognition software. It may contain grammatical, syntax or spelling errors. Any formal questions or concerns about the content, text or information contained within the body of this dictation should be directly addressed to the provider for clarification Total Time Total Time Spent Total Time Spent (In Minutes): 45 Total Time Includes: Examination of the Patient, Discharge Planning, Medication Reconciliation, Communication With Other Providers and Other Discharge Plan Discharge Items Patient Disposition: Hospice - Home Reason For Visit: PNEUMOTHORAX Discharge Diagnosis: #[facility] #Hypotension #Acute encephalopathy # Metastatic pancreatic cancer encasing SMA s/p EUS-guided gastrojejunostomy #Transaminitis Condition on Discharge: Fair Activity: Resume your previous activity Non-emergency contact: Primary Care Provider Call non-emergency contact if: you have any medication questions and your symptoms worsen Follow-up/Referrals: Luis Espinoza, [Primary Care Provider] - Diet: Regular Addtl Attending Provider Instructions: Please follow up with hospice agency regarding medications Pending Studies at Discharge: No Stand-Alone Forms: My [facility] Medications and DC Order Prescriptions: Continued cholecalciferol (vitamin D3) 50 mcg (2,000 unit) capsule 50 mcg PO QPM latanoprost 0.005 % drops 1 drp OPB HS rosuvastatin [Crestor] 40 mg tablet 40 mg PO QDD Hold Instructions: Resume on 02/01/25. Hold until 02/01/2025 while getting IV daptomycin Rx Instructions: with dinner aspirin 81 mg Tablet,Delayed Release (Dr/Ec) 81 mg PO QAM Qty: 0 0RF timolol maleate 0.5 % Drops 1 drp OPL QAM Rx Instructions: left eye carbamazepine 300 mg capsule, ER multiphase 12 hr 300 mg PO HS warfarin 2 mg tablet See Rx Instructions .ROUTE .COMPLEX Hold Instructions: until follow up with Dr. Nicole on 02/16/25 Rx Instructions: TAKE 2MG EVERY FRIDAY/FRIDAY/FRIDAY. And 4mg all other days in the evening tramadol 50 mg tablet 50 mg PO Q6H PRN (Reason: Severe Pain (Scale Score 7-10)) oxycodone 5 mg tablet 5 mg PO Q4H PRN (Reason: Breakthrough Pain) ferrous sulfate 325 mg (65 mg iron) Tablet,Delayed Release (Dr/Ec) 325 mg PO QAM Qty: 30 0RF pantoprazole 40 mg Tablet,Delayed Release (Dr/Ec) 40 mg PO BID Qty: 60 0RF ondansetron HCl 8 mg tablet 8 mg PO Q8 PRN (Reason: Nausea) docusate sodium [Colace] 100 mg capsule 100 mg PO AMHS polyethylene glycol 3350 [Miralax] 17 gram/dose powder 17 g PO QAM prochlorperazine maleate 10 mg tablet 10 mg PO Q6 PRN (Reason: Nausea) lidocaine-prilocaine 2.5-2.5 % cream 1 applic topical UD Rx Instructions: apply to skin over mediport & cover 1 hour prior to accessing morphine 15 mg tablet extended release 15 mg PO TID Rx Instructions: ADMINISTERED AT 8AM, 3PM AND 9PM. ondansetron 4 mg tablet,disintegrating 4 mg PO Q6H PRN (Reason: nausea and vomiting) Qty: 30 0RF Discontinued carvedilol 6.25 mg tablet 6.25 mg PO AMHS lisinopril 20 mg tablet 20 mg PO AMPM amlodipine 5 mg tablet 5 mg PO QAM Discharge Orders: Discharge Order (Routine); Ordered 03/02/25 Ordered By: Ryan Monreal Admission Data Admit Date/Time: 03/01/25 10:57 Attending Provider: Ryan Monreal Admit Provider: Nette Sherwood Primary Care Provider: Luis Espinoza Other Providers: Robert Cabello; Surjit Marquez; Marquita Love; Jennifer Zhang; [facility]; Fausto Burrell; Marty Bates; Dorothy Horta; Sarthak Rojas; Betito Bryan; Julissa Muniz; Evonne Rubi; Lester Srivastava Jr; Toby Ledezma; Kartik Kendrick; Iram Coello; Arian Mcdaniel I Other Interventions: Discharge Summary Assessment (RN) Last Done: 03/02/25 12:12
--- NOTE | 2025-03-03 11:42 | Coding Query ---
MALNUTRITION To promote full compliance with coding requirements relating to patient care, physician participation is requested in all cases of automotive sales representative uncertainty. Please assist us with the question(s) below: Please place an X within the parenthesis (x). If other, please document: "Malnutrition" is documented in this record starting on 02/28 Pulmonary Consultation. If possible, please check the box that provides a more specific diagnosis: ( ) Mild malnutrition ( ) Moderate malnutrition ( ) Severe malnutrition ( ) Protein malnutrition (kwashiorkor) ( ) Severe protein calorie malnutrition (X ) Protein calorie malnutrition, unspecified ( ) Other (please specify): Thank you Jeniffer ROQUE
== END 2025-03-02 12:35 | disposition hospice, home (50) | DRG 200 ==
LOC: 2N 15:51 → ED 15:51 → SUATTDRO 20:04 → 2N 21:30 → SUATTDRO 03-01 10:57 → 3E 03-01 15:03